=== PATIENT | female | born 1955 | race Caucasian/White ===

== ENCOUNTER 2017-11-07 01:09 | Outpatient (CLI) | payer OTHER, SELFPAY ==
[2017-11-07] MEDS: Breeza Beverage 473 ML BTL PO (08:41)
[2017-11-07] MEDS: Omnipaque 350 MG/ML 50 ML BTL PO (08:42)
[2017-11-07] MEDS: Omnipaque 350 MG/ML 100 ML BTL IJ (10:09)
--- NOTE | 2017-11-07 10:10 | DI.RPTCT_ITS ---
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 CHEST: There is no evidence of a pulmonary mass or infiltrate. There is no evidence of a pleural effusion. There is no evidence of hilar or mediastinal adenopathy. The heart is not enlarged. Coronary artery calcification is demonstrated. There are mild atherosclerotic changes involving the aorta without evidence of an aneurysm. Degenerative changes involving the dorsal spine are identified. There are no findings to suggest bony metastasis. SUMMARY: No evidence of metastatic disease in the chest. ABDOMEN AND PELVIC: The study was carried out with oral and intravenous contrast enhancement. There is no evidence of a hepatic mass. The gallbladder , pancreas and spleen are intact. A region of cortical scarring involving the upper pole of the left kidney is identified. Regions of scarring are noted in an atrophic right kidney. There is no evidence of hydronephrosis. The adrenals are normal. The bladder is normal. There is no evidence of bowel obstruction and nothing to suggest an acute appendix. Diffuse bowel wall thickening and an apparent mass is identified in the rectum. The possibility of tumor extension into the adjacent fat could not be excluded. There is no evidence of pelvic or abdominal adenopathy. The reproductive organs as visualized are unremarkable. There are diffuse atherosclerotic changes involving the aorta without evidence of an aneurysm. There are no bony findings to suggest metastatic disease. SUMMARY: There is an apparent mass involving the recto-anal region. The possibility of tumor extension into the adjacent fat could not be excluded. There is no evidence of adenopathy. There is no evidence of solid organ metastasis.
== END 2017-11-07 01:10 ==
PROVIDERS: Visit Provider Surgery
DX: C21.0 Malignant neoplasm of anus, unspecified (principal); K62.5 Hemorrhage of anus and rectum; K62.89 Other specified diseases of anus and rectum; R59.0 Localized enlarged lymph nodes; Z12.89 Encounter for screening for malignant neoplasm of other sites
CPT/HCPCS: 74177; 71260; J3490; Q9967

== ENCOUNTER 2017-11-27 10:55 | Outpatient (CLI) | payer OTHER, SELFPAY ==
[2017-11-27 11:23] LABS: Abs Immature Grans 0.13 k/cumm (0.0-0.09); Absolute Basophil Count 0.03 k/cumm (0.0-0.2); Absolute Eosinophil Count 0.01 k/cumm (0.0-0.7); Absolute Lymphocyte Count 1.21 k/cumm (1.2-3.4); Absolute Monocyte Count 0.97 k/cumm (0.11-0.7); Absolute Neutrophil Count 12.06 k/cumm (1.2-6.7); Basophils % 0.2; Eosinophils % 0.1; HCT 31.8 % (36.0-46.0); Immature Grans % 0.9; Lymphocytes % 8.4; Mean Corp. HGB Concentration 31.4 g/dL (32.0-36.0); Mean Corpuscular Hemoglobin 27.2 pg (27.0-33.0); Mean Corpuscular Volume 86.4 fL (80-95); Mean Platelet Volume 7.9 fL (8.0-11.0); Monocytes % 6.7; Neutrophils % 83.7; Platelet Count 536 x1000/uL (130-400); RBC 3.68 m/cumm (4.00-5.20); RBC Distribution Width 16.8 % (11.7-14.6); White Blood Cell Count 14.41 k/cumm (4.4-10.8)
[2017-11-27 11:43] LABS: Hemoglobin A1C 7.8 % (4.5-6.2)
[2017-11-27 12:20] LABS: ALT 18 U/L (12-78); AST 14 U/L (15-37); Albumin 2.3 g/dL (3.4-5.0); Alkaline Phosphatase 132 U/L (46-116); BUN 14 mg/dL (7-18); Bilirubin, Total 0.3 mg/dL (0.2-1.0); CREATININE 0.95 mg/dL (0.55-1.02); Calcium 8.9 mg/dL (8.5-10.1); Chloride 94 mmol/L (98-107); Estimated GFR 59.22 (mL/min/1.73m2); Glucose 258 mg/dL (70-100); Potassium 4.9 mmol/L (3.5-5.1); Sodium 131 mmol/L (136-145); Total Protein 6.7 g/dL (6.4-8.2)
[2017-11-28 13:38] LABS: HIV-1/2 Ag & Ab Screen Negative (NEGAT)
== END 2017-11-27 11:15 ==
PROVIDERS: Visit Provider Internal Medicine Hematology & Oncology
DX: E11.9 Type 2 diabetes mellitus without complications (principal); C21.0 Malignant neoplasm of anus, unspecified
CPT/HCPCS: 36415; 80053; 87389; 83036; 85025

== ENCOUNTER 2017-12-02 01:09 | Outpatient (CLI) | payer OTHER, SELFPAY ==
[2017-12-02 13:38] LABS: Abs Immature Grans 0.12 k/cumm (0.0-0.09); Absolute Basophil Count 0.03 k/cumm (0.0-0.2); Absolute Eosinophil Count 0.01 k/cumm (0.0-0.7); Absolute Lymphocyte Count 0.97 k/cumm (1.2-3.4); Absolute Monocyte Count 0.88 k/cumm (0.11-0.7); Basophils % 0.3; Eosinophils % 0.1; HCT 29.4 % (36.0-46.0); HGB 9.1 g/dL (12.0-15.5); Immature Grans % 1.1; Lymphocytes % 8.7; Mean Corpuscular Volume 87.2 fL (80-95); Mean Platelet Volume 8.5 fL (8.0-11.0); Monocytes % 7.9; Neutrophils % 81.9; Platelet Count 536 x1000/uL (130-400); RBC 3.37 m/cumm (4.00-5.20); RBC Distribution Width 17.3 % (11.7-14.6); White Blood Cell Count 11.11 k/cumm (4.4-10.8)
[2017-12-02 13:54] LABS: ALT 62 U/L (12-78); AST 51 U/L (15-37); Albumin 1.9 g/dL (3.4-5.0); Alkaline Phosphatase 155 U/L (46-116); Anion Gap 10.9 mmol/L (3-11); BUN 17 mg/dL (7-18); Bilirubin, Total 0.3 mg/dL (0.2-1.0); CO2 27.1 mmol/L (21.0-32.0); CREATININE 1.04 mg/dL (0.55-1.02); Calcium 9.3 mg/dL (8.5-10.1); Chloride 95 mmol/L (98-107); Estimated GFR 53.35 (mL/min/1.73m2); Glucose 189 mg/dL (70-100); Potassium 4.2 mmol/L (3.5-5.1); Sodium 133 mmol/L (136-145); Total Protein 7.2 g/dL (6.4-8.2)
[2017-12-03 10:13] LABS: HIV-1/2 Ag & Ab Screen Negative (NEGAT)
== END 2017-12-02 01:29 ==
PROVIDERS: Internal Medicine Hematology & Oncology; Visit Provider Nurse Practitioner Adult Health
DX: C21.0 Malignant neoplasm of anus, unspecified (principal)
CPT/HCPCS: 80053; 87389; 85025

== ENCOUNTER 2017-12-02 10:54 | Emergency (ER) | payer OTHER, SELFPAY ==
[2017-12-02 11:18] VITALS: BP 104/57; PULSE 110; RESP 20; TEMP 36.4; O2SAT 96
--- NOTE | 2017-12-02 12:49 | ED.GENADUL_ITS ---
Discharge Plan Disposition Patient Disposition: HOME Condition: Poor Discharge Details Chief Complaint: GenMedical Clinical Impression: Mass of anus, Cancer associated pain Primary Care Provider: Diane Leblanc ED Provider: Bianka Quiroz Home Meds and New Rx's Prescriptions: New naloxone [Narcan] 4 mg/actuation spray,non-aerosol 1 spray JORGE ONCE PRN (Reason: opioid overdose) Qty: 2 RF: 0 Continue aspirin [Ecotrin Low Strength] 81 MG tablet,delayed release (DR/EC) 1 tab PO DAILY RF: 0 acetaminophen 500 MG tablet 1 tab PO PRN RF: 0 calcium carbonate 500 MG tablet 1 tab.chew PO BID RF: 0 blood-glucose meter 1 EACH misc 1 ea Miscellaneous DAILY Qty: 1 RF: 0 ascorbic [id number] [Emergen-C] 1,000 MG powder effervescent in packet 1 packet PO PRN RF: 0 fluocinolone [Synalar] 120 GM ointment 1 applic Topical BID Qty: 1 RF: 2 simvastatin [Zocor] 10 MG tablet 1 tab PO HS Qty: 90 RF: 4 metformin 1,000 MG tablet 1 tab PO BID Qty: 180 RF: 4 lancets 1 EACH misc 1 ea Miscellaneous BID Qty: 200 RF: 4 blood sugar diagnostic [Blood Glucose Test] 1 EACH strip 1 ea Miscellaneous BID Qty: 200 RF: 4 levothyroxine [Synthroid] 137 MCG tablet 1 tab PO DAILY Qty: 90 RF: 4 lisinopril 20 MG tablet 20 mg PO DAILY Qty: 90 RF: 3 polyethylene glycol 3350 17 gram/dose powder 17 gm PO DAILY PRN (Reason: constipation) Qty: 255 RF: 2 glipizide 2.5 MG tablet extended release 24hr 2.5 - 5 mg PO DAILY RF: 0 fentanyl 12 mcg/hr Patch 72 Hour 12.5 mcg Transdermal DIRECTED RF: 0 Discontinued oxycodone 5 mg Tablet 2.5 mg PO Q4H PRNRF: 0 No Action ondansetron [Zofran ODT] 4 mg Tablet,Disintegrating 4 mg PO PRN PRNRF: 0 Discharge Instructions Instructions: Morphine, Rapid Release (By mouth) Additional Instructions: Encourage hydration. Continue high salt diet. Please follow-up tomorrow for your planned appointment. Please discuss pain management further with him at that time. If you develop new/worsening symptoms please seek care urgently once again. Please continue with your fentanyl patch as previously prescribed. You may augment this with the morphine as prescribed. If you develop new or worsening symptoms please seek care urgently once again. Palliative care will contact you regarding upcoming appointment Referrals: Diane Leblanc NP [Primary Care Provider] - Discharge Data Discharge Date/Time-TO BE ENTERED AT DEPARTURE: 12/02/17 15:54 Medical Decision Making Patient presents today with chief complaint of pain associated with rectal tumor. She reports that she was recently begun on a regimen of Fentanyl patch and oral oxycodone which ahs had adverse reaction and has not been able to function well at home. Patient and her family were under the impression that she would be admitted with plan to move [facility]. I discussed with the patient and her family that we may be able to change her pain regimen with different results, she is open to trying this. Also discussed palliative consult to help with the difficulties she is experiencing at home as well as continue to help with pain that may develop/change with time. She is scheduled to have blood work completed today, as ordered by radiologist. Patient was concerned about her hemoglobin and sodium as these have both been being monitored by her oncologist. Hgb has dropped, will relay this to oncologist. Sodium is still low but uptrending, she has changed her diet in an effort to take in higher sodium. Consulted with hospitalist regarding admission. He advised that we will he would be happy to consider an admission for the patient, she would be unable to go to her radiation and chemotherapy appointment tomorrow from an inpatient standpoint. Discussed this with the patient, she is refusing admission and she wants to move forward with her treatment. Patient was given oral morphine and reports that this greatly improved her discomfort while keeping her more clear headed. Feels that this did not infect her the way oxycodone did. Palliative care referral was placed. Discussed this with the patient and her family who is thankful for this upcoming intervention Consulted with Dr. Melchor regarding pain management. We discussed stopping the oxycodone and beginning the patient on oral morphine while continuing with her fentanyl patch for baseline discomfort. He agrees to this which will continue to monitor the patient for discomfort. We also discussed the patient's laboratory evaluation today. Patient is feeling that she can go lasha ewiht palliative care consult and with new plan for pain management. She was given return precautions. She will f/u with oncologist tomorrow as previously scheduled. All of her qeustions and concerns were addressed, she is in agreement with thisi plan. HPI General Mode of arrival: ambulatory . Date/Time Provider Initiated Documentation: 12/02/17 11:37 . Limitations to Documentation: no limitations . Information obtained by: patient . HPI Narrative: Patient is a 62-year-old female presenting today with chief complaint of rectal pain. She reports she is currently being treated for a rectal tumor. Is scheduled to have her first course of chemotherapy and radiation tomorrow. She presents today secondary to her discomfort. Reports that she has a constant burning. She currently is being treated with Fentanyl patch for her baseline pain and Oxycodone for breakthrough pain. States that when she takes the oxycodone she is unable to care for herself. Reports that it causes her to feel dizzy, lightheaded and confused. Her family is concerned that she is unable to care for herself and is concerned that she needs placement [facility]. Began these pain medications last week. States she has slight rectal bleeding noted on the toilet paper but denies blood in stool. Denes fevers/chils. Denies abdominal pain. reports that she has had PET scan. No N/V/D. No change in urinary habits. Is currently laying on her left side, reports that being on her side helps with discomfort. Related Data Home Medications Medication Instructions Recorded Confirmed acetaminophen 1 tab PO PRN 06/29/12 12/04/17 aspirin [Ecotrin Low Strength] 1 tab PO DAILY 06/29/12 12/04/17 calcium carbonate 1 tab.chew PO BID 06/29/12 12/04/17 blood-glucose meter #1 ea 10/04/14 12/04/17 ascorbic [id number] 1 packet PO PRN 07/26/15 12/04/17 [Emergen-C] fluocinolone [Synalar] 1 applic TOPICAL BID #1 script 03/28/16 12/04/17 metformin 1 tab PO BID #180 tab-cap 11/26/16 12/04/17 simvastatin [Zocor] 1 tab PO HS #90 tab-cap 11/26/16 12/04/17 lancets #200 ea 02/13/17 12/04/17 blood sugar diagnostic [Blood #200 strip 03/28/17 12/04/17 Glucose Test] levothyroxine [Synthroid] 1 tab PO DAILY #90 tab-cap 05/14/17 12/04/17 lisinopril 20 mg PO DAILY #90 tab-cap 05/14/17 12/04/17 polyethylene glycol 3350 17 17 gm PO DAILY PRN #255 gm 11/18/17 12/04/17 gram/dose oral powder fentanyl 12.5 mcg TRANSDERMAL DIRECTED 12/02/17 12/04/17 glipizide 2.5 - 5 mg PO DAILY 12/02/17 12/04/17 naloxone [Narcan] 1 spray JORGE ONCE PRN #2 each 12/02/17 12/04/17 ondansetron [Zofran ODT] 4 mg PO PRN PRN 12/04/17 12/04/17 Previous Rx's Medication Instructions Recorded metformin 1 tab PO BID #180 tab-cap 11/26/16 simvastatin [Zocor] 1 tab PO HS #90 tab-cap 11/26/16 lancets #200 ea 02/13/17 blood sugar diagnostic [Blood #200 strip 03/28/17 Glucose Test] levothyroxine [Synthroid] 1 tab PO DAILY #90 tab-cap 05/14/17 lisinopril 20 mg PO DAILY #90 tab-cap 05/14/17 polyethylene glycol 3350 17 17 gm PO DAILY PRN #255 gm 11/18/17 gram/dose oral powder naloxone [Narcan] 1 spray JORGE ONCE PRN #2 each 12/02/17 Allergies Allergy/AdvReac Type Severity Reaction Status Date / Time codeine Allergy Unverified 12/04/17 15:29 copper Allergy Skin Rash Unverified 12/04/17 15:29 latex Allergy Unverified 12/04/17 15:29 lidocaine Allergy Itching Unverified 12/04/17 15:29 oxycodone AdvReac Unverified 12/05/17 12:56 General Stated Complaint: GenMedical SEMAJ: 3 Review of Systems Constitutional Reports as per HPI, Denies chills, Reports fatigue, Denies fever(s), Denies headache(s) and Reports poor appetite Eyes Denies change in vision ENT Denies headache(s) Cardiovascular Denies chest pain and Denies dyspnea Respiratory Denies cough and Denies dyspnea Gastrointestinal Reports as per HPI Genitourinary Reports as per HPI Musculoskeletal Denies back pain Integumentary/Breasts Denies rash and Reports skin swelling (patient and notes from oncologist note that she has had eruption of the tumor around the rectum) Neurologic Denies headache(s) Endocrine Reports fatigue Exam Const General: cooperative, uncomfortable (patient appears comofrtable when on her side but is clearly uncomfortable when sitting or on her back), no acute distress, well developed and well groomed Nutritional Appearance: well nourished and overweight Orientation: alert, awake and oriented x3 HENVT Mouth: moist mucous membranes Eyes General: appearance normal, both eyes and all related structures Resp Effort & Inspection: normal respiratory effort, able to speak in complete sentences and no respiratory distress Auscultation: clear to auscultation bilaterally Cardio Rate: regular rate Rhythm: regular rhythm Heart Sounds: S1 normal and S2 normal GI Inspection: normal to inspection Palpation: soft and nontender Skin General skin exam: no rashes or lesions noted Neuro General: alert, awake and oriented x3 Cognition: normal cognition Speech: speech normal Gait: antalgic Psych Appearance: grossly normal and well kempt Mental Status: mental status grossly normal Speech and Movement: speech and movement normal Course Vital Signs Temperature 36.4 C L 12/02/17 11:18 Pulse 110 H 12/02/17 11:18 Respiratory Rate 20 12/02/17 11:18 Blood Pressure 104/57 L 12/02/17 11:18 Pulse Oximetry 96 12/02/17 11:18 Temperature 36.4 C L 12/02/17 11:18 Temperature Source Skin 12/02/17 11:18 Pulse 110 H 12/02/17 11:18 Respiratory Rate 20 12/02/17 11:18 Blood Pressure 104/57 L 12/02/17 11:18 Blood Pressure Position Sitting 12/02/17 11:18 Pulse Oximetry 96 12/02/17 11:18 Oxygen Delivery Method Room Air 12/02/17 11:18 Oxygen Flow Rate 0 12/02/17 11:18 Pain Level 9 12/02/17 11:18 Comment starts chemo and radiation tomorrow 12/02/17 11:18
[2017-12-02 12:58] VITALS: RESP 18
--- NOTE | 2017-12-02 14:42 | PDOC.ERCMPRO ---
Care Management Progress Note 12/02/17-Pt being seen here today by KATIE Manley for rectal pain as Pt has a rectal tumor. Pt wanted to be admitted to get her 3 qualifying nights so that she can join her who is a pt there. Pt will not be admitted here as she does not have a need . Pt begins chemo tx tomorrow.Pt and family is accepting of a Palliative Care referral. Referral has been sent.
[2017-12-02 15:02] VITALS: BP 102/58; PULSE 85; RESP 16; TEMP 36.6; O2SAT 97
[2017-12-02 15:53] VITALS: BP 92/54; PULSE 94; RESP 18; TEMP 36.4; O2SAT 97
== END 2017-12-02 15:54 | disposition home or self-care (01) ==
PROVIDERS: Emergency Provider Physician Assistant
DX: C21.0 Malignant neoplasm of anus, unspecified (principal); G89.3 Neoplasm related pain (acute) (chronic); I10 Essential (primary) hypertension; E11.9 Type 2 diabetes mellitus without complications; Z79.84 Long term (current) use of oral hypoglycemic drugs
CPT/HCPCS: 99283

== ENCOUNTER 2017-12-04 15:20 | Inpatient (IN) | payer OTHER, SELFPAY ==
[2017-12-04] VITALS (107 sets, daily range): BP systolic 37–190; BP diastolic 21–103; PULSE 0–139; RESP 11–36; TEMP 34.5–38.3; O2SAT 81–99
--- NOTE | 2017-12-04 15:33 | DI.RAD_ITS ---
SYMPTOM/DIAGNOSIS: NEUTROPENIC FEVER PA AND LATERAL CHEST: The heart is normal in size. The lungs are clear. The mediastinal structures and pleura appear intact. CONCLUSION: Normal chest. No evidence of acute cardiopulmonary disease.
--- NOTE | 2017-12-04 15:36 | W.ED.GENAD ---
Discharge Plan Disposition Patient Disposition: [facility] INPATIENT Condition: Critical Discharge Details Chief Complaint: GenMedical Clinical Impression: Sepsis, UTI (urinary tract infection) Reason For Visit: SEPSIS,URINARY TRACT INFECTION Admit Date/Time: 12/04/17 20:36 Admit Provider: Morgan Carpio Attending Provider: Morgan Carpio Primary Care Provider: Diane Leblanc ED Provider: Bianka Quiroz Discharge Data Discharge Date/Time-TO BE ENTERED AT DEPARTURE: 12/04/17 21:53 Medical Decision Making Patient presents today with chief complaint of fever. She received her first dosing of chemotherapy and radiation yesterday. Was seen oncology again today at which time the temp was noted. Patient is currently febrile at 38.3. To be tachycardic at 125. She not endorsing any new discomfort. Oncology reports that they noted a slight cough throughout her visit. Patient denies any new cough. She reports that she was feeling well this morning prior to going to her oncology appointment. Denies any headache, visual changes. No nuchal rigidity. There was concern for possible neutropenic fever, however, given the medication that she is receiving for chemotherapy as well as that yesterday was her first dosing I would be surprised if she is neutropenic at this point. We will obtain repeat laboratory evaluation, chest x-ray and hydrate the patient. Patient be given Tylenol to help with her fever. She is denying any shortness of breath or chest pain. Denies any GI upset. Denies any symptoms suggestive of urinary tract infection. Laboratory evaluation significant for leukocytosis with WBC of 20.9, this is up from 11.11 2 days ago. Hemoglobin is 7.9, this is down from 9.1. Neutrophil count is 19.4. Sodium is 122, this is down from 1.33. Creatinine is 1.8, up from 1.04. Magnesium is 1.1. Patient is noted to have elevated anion gap Patient was reevaluated and noted to be hypotensive. She currently 66/42. Patient appears diaphoretic. Fever is broken, she is currently 36.3 ?C. Second IV was started. Patient is receiving the magnesium and IV ceftriaxone for presumed urosepsis Consult[facility] [place]. Advised to continue with the hydration, replacement of electrolytes and antibiotics. While in the front of them I reviewed the chest x-ray and I am concerned I am seeing small right upper lobe infiltrate. They advised that I broaden antibiotics to Zosyn Patient received 2 L IV and is not responding. Will begin norepinephrine 8 mcg/min per septic shock protocol. Has this syndrome blood pressure began after starting the IV magnesium, we will hold magnesium at this point. Contacted Dr. Thomas who will come to place central line for continued pressor support. Patient responded well to initial dosing of norepinephrine. Paged Dr. Carpio to discuss hospitalization. Patient initially responded well to norepinephrine but then began to have decrease in BP again, norepi was increased to 10mcg/min. Chest x-ray reviewed by radiologist. Advised no acute pulmonary disease. No focal pulmonary consolidation. Dr. Sloan was able to place a central line, portable chest x-ray will be obtained Repeat chest x-ray after central line placement shows insertion of central catheter in good position without evidence of complication. No pneumothorax. Insertion is into the right internal jugular with tip projecting over the mid superior vena cava. Daughter is now present, she is patient's primary caregiver. She reports that this morning she was afebrile, laughing at breakfast and acting per her normal. I did question the patient as well as her family on advanced directives any wishes that may have already been expressed. Patient wishes to be a full code. Patient blood pressures been quite labile and we have been adjusting the norepinephrine drip based on current readings. Consulted with Dr. Carpio regarding admission. We discussed the patient's history, labs and course well-being here. He agrees to admission. Came to the department to evaluate the patient. Dr. elise evaluated the patient, agrees to admission to the ICU for urosepsis. Prior to the patient being transported upstairs, her blood pressure began to be more labile. Further fluids were given. Heart rate began to spike and appear irregular concerning for episodes of atrial fibrillation. Heart rate would spike into the 140s and run like this for a few seconds. Patient denies any change in sensation when she goes into this rhythm. Continues to deny chest pain or shortness of breath. Is not feeling dizzy or lightheaded. Tachycardia is elongating in length of time in which she is in these runs. Will consult again with Dr. Carpio. Dr. Carpio advised beginning patient on diltiazem. Prior to the patient beginning the diltiazem she seemed to come out of the rhythm did not go back into this. We will continue to need to adjust norepinephrine drip based on current blood pressure. Patient transferred to ICU for continued treatment of septic shock with urosepsis. Patient is currently receiving fluids, norepinephrine and antibiotics per HPI General Mode of arrival: ambulatory. Date/Time Provider Initiated Documentation: 12/04/17 15:32. Limitations to Documentation: no limitations. Information obtained by: patient and family. HPI Narrative: Patient is 62-year-old female presenting today with chief complaint of neutropenic fever. She is from the [facility] after receiving p.o. chemotherapy and radiation this morning. Patient is currently being treated for a rectal tumor. Should her first dose of chemotherapy yesterday. Patient was seen by myself on Saturday with chief complaint of pain. At that time, patient was transitioned from oxycodone to oral morphine which she responded much better to. Do not have any dizziness or altered mentation that had been her primary concern the oxycodone. Reports that she took oral morphine yesterday but has not required anything thus far today. Patient does have a fentanyl patch on routinely. Patient was noted to be febrile while at the [facility] today with a temp of 38.1. When she had a blood work done last on Saturday, patient was not noted to be neutropenic. However, she did begin the treatments they are concerned that she may have developed neutropenic fever. They were also reporting that they noted a mild cough. She is denying any cough at this time. She denies any upper respiratory symptoms. Denies any abdominal pain. No dysuria. She was noted to be slow to answer questions compared to her baseline. She denies PACHECO, no visual changes, no pain in her back. Patient reports that her pain in the tumor is well controlled with Fentanyl but she is currently endorsing over riding burning sensation in her rectum Related Data Home Medications Medication Instructions Recorded Confirmed acetaminophen 1 tab PO PRN 06/29/12 12/04/17 aspirin [Ecotrin Low Strength] 1 tab PO DAILY 06/29/12 12/04/17 calcium carbonate 1 tab.chew PO BID 06/29/12 12/04/17 blood-glucose meter #1 ea 10/04/14 12/04/17 ascorbic [id number] 1 packet PO PRN 07/26/15 12/04/17 [Emergen-C] fluocinolone [Synalar] 1 applic TOPICAL BID #1 script 03/28/16 12/04/17 metformin 1 tab PO BID #180 tab-cap 11/26/16 12/04/17 simvastatin [Zocor] 1 tab PO HS #90 tab-cap 11/26/16 12/04/17 lancets #200 ea 02/13/17 12/04/17 blood sugar diagnostic [Blood #200 strip 03/28/17 12/04/17 Glucose Test] levothyroxine [Synthroid] 1 tab PO DAILY #90 tab-cap 05/14/17 12/04/17 lisinopril 20 mg PO DAILY #90 tab-cap 05/14/17 12/04/17 polyethylene glycol 3350 17 17 gm PO DAILY PRN #255 gm 11/18/17 12/04/17 gram/dose oral powder fentanyl 12.5 mcg TRANSDERMAL DIRECTED 12/02/17 12/04/17 glipizide 2.5 - 5 mg PO DAILY 12/02/17 12/04/17 naloxone [Narcan] 1 spray JORGE ONCE PRN #2 each 12/02/17 12/04/17 ondansetron [Zofran ODT] 4 mg PO PRN PRN 12/04/17 12/04/17 Previous Rx's Medication Instructions Recorded metformin 1 tab PO BID #180 tab-cap 11/26/16 simvastatin [Zocor] 1 tab PO HS #90 tab-cap 11/26/16 lancets #200 ea 02/13/17 blood sugar diagnostic [Blood #200 strip 03/28/17 Glucose Test] levothyroxine [Synthroid] 1 tab PO DAILY #90 tab-cap 05/14/17 lisinopril 20 mg PO DAILY #90 tab-cap 05/14/17 polyethylene glycol 3350 17 17 gm PO DAILY PRN #255 gm 11/18/17 gram/dose oral powder naloxone [Narcan] 1 spray JORGE ONCE PRN #2 each 12/02/17 Allergies Allergy/AdvReac Type Severity Reaction Status Date / Time codeine Allergy Unverified 12/04/17 15:29 copper Allergy Skin Rash Unverified 12/04/17 15:29 latex Allergy Unverified 12/04/17 15:29 lidocaine Allergy Itching Unverified 12/04/17 15:29 oxycodone AdvReac Unverified 12/05/17 12:56 General Stated Complaint: GenMedical SEMAJ: 3 Review of Systems Constitutional Reports as per HPI, Denies chills, Reports fatigue, Reports fever(s) and Denies headache(s) Eyes Reports as per HPI, Denies change in vision and Denies loss of vision ENT Reports as per HPI and Denies headache(s) Cardiovascular Denies chest pain, Denies chest pain at rest, Denies syncope, Denies pedal edema, Denies palpitations, Denies dyspnea and Denies dyspnea on exertion Respiratory Reports as per HPI, Reports cough, Denies hemoptysis, Denies dyspnea, Denies dyspnea on exertion, Denies stridor and Denies wheezing Gastrointestinal Reports as per HPI, Denies change in bowel habits, Denies diarrhea, Denies nausea and Denies vomiting Genitourinary Reports system reviewed and no additional complaints, except as docu (reports she has diminished urine, associates with treatments), Denies urinary frequency, Denies difficulty voiding, Denies dyspareunia, Denies dysuria, Denies pelvic pain, Denies flank pain and Denies urinary urgency Musculoskeletal Reports as per HPI and Denies back pain Integumentary/Breasts Denies rash Neurologic Denies syncope, Denies headache(s) and Denies loss of vision Endocrine Reports fatigue and Denies palpitations Allergic/Immunologic Denies wheezing PFSH Family History Mother Diabetes Essential hypertension Depression Heart disease Hyperlipidemia Neoplasm Cerebrovascular accident Father Heart disease Myocardial infarction Sister Hyperlipidemia Asthma Grandfather Neoplasm Grandmother Cerebrovascular accident Son Diabetes Asthma Daughter Anxiety Heart disease Medical History Anal cancer (Chronic) Anemia (Chronic) SVT (supraventricular tachycardia) (Acute) Hypothyroidism (Chronic 07/07/12) Hyperlipidemia (Chronic) Gastroesophageal reflux disease (Chronic) Essential hypertension (Chronic 01/02/13) Diabetes mellitus (Chronic 07/07/12) Diabetes Female infertility GERD (gastroesophageal reflux disease) Hyperlipidemia Hypertension Hypothyroidism Obesity (BMI 30-39.9) Varicose veins of both lower extremities Social History household members: none 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 pets and animals: Yes pets and animals: cat(s) frequency: 3-4 times per week duration: 45-60 minutes/day Smoking/Tobacco Use Status: Current every day tobacco type: cigarettes alcohol intake: never substance use type: does not use cari/holiness: [employer] special cari needs: No seatbelt use: always Surgical History Cervical Procedure (~1989) Endometrial Biopsy (~2002) Ligation of fallopian tube Exam Const General: cooperative, comfortable, no acute distress, well developed and ill appearing chronically Nutritional Appearance: overweight Orientation: alert and awake [facility] Head: normal to inspection, normocephalic and atraumatic Ears: hearing grossly normal bilaterally, external ears normal and TM's normal bilaterally General nose exam: external nose normal Face and sinus: normal facial exam and sinuses nontender Mouth: mucous membranes dry (dry) Teeth and gingiva: dentition normal (patient has upper dentures) Throat: posterior oropharynx normal, uvula midline and other (no trismus) Resp Effort & Inspection: normal respiratory effort, able to speak in complete sentences and no respiratory distress Auscultation: clear to auscultation bilaterally Cardio Rate: tachycardic Rhythm: regular rhythm Heart Sounds: S1 normal and S2 normal GI Inspection: normal to inspection, no abdominal wall ecchymosis, no edema and non-distended Palpation: soft, no hepatosplenomegaly, not firm, no guarding, not rigid and nontender Auscultation: normal bowel sounds Back/Spine/Pelvis Back: no CVA tenderness Cervical Spine: normal cervical lordosis and cervical ROM normal Thoracic/Lumbar Spine: thoracic and lumbar spine normal to inspection (no midline tenderness) Skin General skin exam: no rashes or lesions noted Lesions: no lesions Rashes: no rashes Neuro General: alert and awake Cranial Nerves: CN's II-XI intact bilaterally Cognition: normal cognition Speech: speech normal Gait: gait abnormal (patient brought in in wheelchair) Extrem General: no pedal edema and no calf tenderness Psych Appearance: grossly normal and well kempt Mental Status: mental status grossly normal Speech and Movement: speech and movement normal Affect: normal affect Attitude: cooperative Course Vital Signs Temperature 38.3 C H 12/04/17 15:26 Pulse 125 H 12/04/17 15:26 Respiratory Rate 22 12/04/17 15:26 Blood Pressure 128/103 H 12/04/17 15:26 Pulse Oximetry 95 12/04/17 15:26 Temperature 38.3 C H 12/04/17 15:26 Temperature Source Temporal Artery Scan 12/04/17 15:26 Pulse 125 H 12/04/17 15:26 Respiratory Rate 22 12/04/17 15:26 Blood Pressure 128/103 H 12/04/17 15:26 Pulse Oximetry 95 12/04/17 15:26 Oxygen Delivery Method Room Air 12/04/17 15:26 Oxygen Flow Rate 0 12/04/17 15:26 Pain Level 9 12/04/17 15:26
[2017-12-04] MEDS: Normal Saline 1,000 ML 150 ML IV ×2 (16:00→23:55)
[2017-12-04] MEDS: Acetaminophen 500 MG TAB 1000 MG PO (16:00)
[2017-12-04 16:16] LABS: Abs Immature Grans 0.71 k/cumm (0.0-0.09); HCT 24.8 % (36.0-46.0); HGB 7.9 g/dL (12.0-15.5); Mean Corp. HGB Concentration 31.9 g/dL (32.0-36.0); Mean Corpuscular Hemoglobin 27.1 pg (27.0-33.0); Mean Corpuscular Volume 84.9 fL (80-95); Mean Platelet Volume 8.4 fL (8.0-11.0); Platelet Count 527 x1000/uL (130-400); RBC 2.92 m/cumm (4.00-5.20); RBC Distribution Width 17.1 % (11.7-14.6); White Blood Cell Count 20.93 k/cumm (4.4-10.8)
[2017-12-04 16:27] LABS: Lactate-non-spesis 2.9 mmol/L (0.6-1.4)
[2017-12-04 16:32] LABS: Absolute Lymphocyte Count 0.84 k/cumm (1.2-3.4); Absolute Monocyte Count 0.63 k/cumm (0.11-0.7); Absolute Neutrophil Count 19.46 k/cumm (1.2-6.7); Atypical Lymphocytes % 0; Basophilic Stippling Present; Diff Comment Manual Differential
[2017-12-04 16:33] LABS: Hypochromasia 1+; Macrocytosis 1+; Polychromasia Present
--- NOTE | 2017-12-04 16:33 | ED.GENADUL_ITS ---
Discharge Plan Disposition Patient Disposition: [facility] INPATIENT Condition: Critical Discharge Details Chief Complaint: GenMedical Clinical Impression: Sepsis, UTI (urinary tract infection) Reason For Visit: SEPSIS,URINARY TRACT INFECTION Admit Date/Time: 12/04/17 20:36 Admit Provider: Morgan Carpio Attending Provider: Morgan Carpio Primary Care Provider: Diane Leblanc ED Provider: Bianka Quiroz Discharge Data Discharge Date/Time-TO BE ENTERED AT DEPARTURE: 12/04/17 21:53 Medical Decision Making Patient presents today with chief complaint of fever. She received her first dosing of chemotherapy and radiation yesterday. Was seen oncology again today at which time the temp was noted. Patient is currently febrile at 38.3. To be tachycardic at 125. She not endorsing any new discomfort. Oncology reports that they noted a slight cough throughout her visit. Patient denies any new cough. She reports that she was feeling well this morning prior to going to her oncology appointment. Denies any headache, visual changes. No nuchal rigidity. There was concern for possible neutropenic fever, however, given the medication that she is receiving for chemotherapy as well as that yesterday was her first dosing I would be surprised if she is neutropenic at this point. We will obtain repeat laboratory evaluation, chest x-ray and hydrate the patient. Patient be given Tylenol to help with her fever. She is denying any shortness of breath or chest pain. Denies any GI upset. Denies any symptoms suggestive of urinary tract infection. Laboratory evaluation significant for leukocytosis with WBC of 20.9, this is up from 11.11 2 days ago. Hemoglobin is 7.9, this is down from 9.1. Neutrophil count is 19.4. Sodium is 122, this is down from 1.33. Creatinine is 1.8, up from 1.04. Magnesium is 1.1. Patient is noted to have elevated anion gap Patient was reevaluated and noted to be hypotensive. She currently 66/42. Patient appears diaphoretic. Fever is broken, she is currently 36.3 ?C. Second IV was started. Patient is receiving the magnesium and IV ceftriaxone for presumed urosepsis [place] [facility] [place]. Advised to continue with the hydration, replacement of electrolytes and antibiotics. While in the front of them I reviewed the chest x-ray and I am concerned I am seeing small right upper lobe infiltrate. They advised that I broaden antibiotics to Zosyn Patient received 2 L IV and is not responding. Will begin norepinephrine 8 mcg/ min per septic shock protocol. Has this syndrome blood pressure began after starting the IV magnesium, we will hold magnesium at this point. Contacted Dr. Thomas who will come to place central line for continued pressor support. Patient responded well to initial dosing of norepinephrine. Paged Dr. Carpio to discuss hospitalization. Patient initially responded well to norepinephrine but then began to have decrease in BP again, norepi was increased to 10mcg/min. Chest x-ray reviewed by radiologist. Advised no acute pulmonary disease. No focal pulmonary consolidation. Dr. Sloan was able to place a central line, portable chest x-ray will be obtained Repeat chest x-ray after central line placement shows insertion of central catheter in good position without evidence of complication. No pneumothorax. Insertion is into the right internal jugular with tip projecting over the mid superior vena cava. Daughter is now present, she is patient's primary caregiver. She reports that this morning she was afebrile, laughing at breakfast and acting per her normal. I did question the patient as well as her family on advanced directives any wishes that may have already been expressed. Patient wishes to be a full code. Patient blood pressures been quite labile and we have been adjusting the norepinephrine drip based on current readings. Consulted with Dr. Carpio regarding admission. We discussed the patient's history, labs and course well-being here. He agrees to admission. Came to the department to evaluate the patient. Dr. elise evaluated the patient, agrees to admission to the ICU for urosepsis. Prior to the patient being transported upstairs, her blood pressure began to be more labile. Further fluids were given. Heart rate began to spike and appear irregular concerning for episodes of atrial fibrillation. Heart rate would spike into the 140s and run like this for a few seconds. Patient denies any change in sensation when she goes into this rhythm. Continues to deny chest pain or shortness of breath. Is not feeling dizzy or lightheaded. Tachycardia is elongating in length of time in which she is in these runs. Will consult again with Dr. Carpio. Dr. Carpio advised beginning patient on diltiazem. Prior to the patient beginning the diltiazem she seemed to come out of the rhythm did not go back into this. We will continue to need to adjust norepinephrine drip based on current blood pressure. Patient transferred to ICU for continued treatment of septic shock with urosepsis. Patient is currently receiving fluids, norepinephrine and antibiotics per HPI General Mode of arrival: ambulatory . Date/Time Provider Initiated Documentation: 12/04/17 15:32 . Limitations to Documentation: no limitations . Information obtained by: patient and family . HPI Narrative: Patient is 62-year-old female presenting today with chief complaint of neutropenic fever. She is from the [facility] after receiving p.o. chemotherapy and radiation this morning. Patient is currently being treated for a rectal tumor. Should her first dose of chemotherapy yesterday. Patient was seen by myself on Saturday with chief complaint of pain. At that time , patient was transitioned from oxycodone to oral morphine which she responded much better to. Do not have any dizziness or altered mentation that had been her primary concern the oxycodone. Reports that she took oral morphine yesterday but has not required anything thus far today. Patient does have a fentanyl patch on routinely. Patient was noted to be febrile while at the [facility] today with a temp of 38.1. When she had a blood work done last on Saturday, patient was not noted to be neutropenic. However, she did begin the treatments they are concerned that she may have developed neutropenic fever. They were also reporting that they noted a mild cough. She is denying any cough at this time. She denies any upper respiratory symptoms. Denies any abdominal pain. No dysuria. She was noted to be slow to answer questions compared to her baseline. She denies PACHECO, no visual changes, no pain in her back. Patient reports that her pain in the tumor is well controlled with Fentanyl but she is currently endorsing over riding burning sensation in her rectum Related Data Home Medications Medication Instructions Recorded Confirmed acetaminophen 1 tab PO PRN 06/29/12 12/04/17 aspirin [Ecotrin Low Strength] 1 tab PO DAILY 06/29/12 12/04/17 calcium carbonate 1 tab.chew PO BID 06/29/12 12/04/17 blood-glucose meter #1 ea 10/04/14 12/04/17 ascorbic [id number] 1 packet PO PRN 07/26/15 12/04/17 [Emergen-C] fluocinolone [Synalar] 1 applic TOPICAL BID #1 script 03/28/16 12/04/17 metformin 1 tab PO BID #180 tab-cap 11/26/16 12/04/17 simvastatin [Zocor] 1 tab PO HS #90 tab-cap 11/26/16 12/04/17 lancets #200 ea 02/13/17 12/04/17 blood sugar diagnostic [Blood #200 strip 03/28/17 12/04/17 Glucose Test] levothyroxine [Synthroid] 1 tab PO DAILY #90 tab-cap 05/14/17 12/04/17 lisinopril 20 mg PO DAILY #90 tab-cap 05/14/17 12/04/17 polyethylene glycol 3350 17 17 gm PO DAILY PRN #255 gm 11/18/17 12/04/17 gram/dose oral powder fentanyl 12.5 mcg TRANSDERMAL DIRECTED 12/02/17 12/04/17 glipizide 2.5 - 5 mg PO DAILY 12/02/17 12/04/17 naloxone [Narcan] 1 spray JORGE ONCE PRN #2 each 12/02/17 12/04/17 ondansetron [Zofran ODT] 4 mg PO PRN PRN 12/04/17 12/04/17 Previous Rx's Medication Instructions Recorded metformin 1 tab PO BID #180 tab-cap 11/26/16 simvastatin [Zocor] 1 tab PO HS #90 tab-cap 11/26/16 lancets #200 ea 02/13/17 blood sugar diagnostic [Blood #200 strip 03/28/17 Glucose Test] levothyroxine [Synthroid] 1 tab PO DAILY #90 tab-cap 05/14/17 lisinopril 20 mg PO DAILY #90 tab-cap 05/14/17 polyethylene glycol 3350 17 17 gm PO DAILY PRN #255 gm 11/18/17 gram/dose oral powder naloxone [Narcan] 1 spray JORGE ONCE PRN #2 each 12/02/17 Allergies Allergy/AdvReac Type Severity Reaction Status Date / Time codeine Allergy Unverified 12/04/17 15:29 copper Allergy Skin Rash Unverified 12/04/17 15:29 latex Allergy Unverified 12/04/17 15:29 lidocaine Allergy Itching Unverified 12/04/17 15:29 oxycodone AdvReac Unverified 12/05/17 12:56 General Stated Complaint: GenMedical SEMAJ: 3 Review of Systems Constitutional Reports as per HPI, Denies chills, Reports fatigue, Reports fever(s) and Denies headache(s) Eyes Reports as per HPI, Denies change in vision and Denies loss of vision ENT Reports as per HPI and Denies headache(s) Cardiovascular Denies chest pain, Denies chest pain at rest, Denies syncope, Denies pedal edema , Denies palpitations, Denies dyspnea and Denies dyspnea on exertion Respiratory Reports as per HPI, Reports cough, Denies hemoptysis, Denies dyspnea, Denies dyspnea on exertion, Denies stridor and Denies wheezing Gastrointestinal Reports as per HPI, Denies change in bowel habits, Denies diarrhea, Denies nausea and Denies vomiting Genitourinary Reports system reviewed and no additional complaints, except as docu (reports she has diminished urine, associates with treatments), Denies urinary frequency , Denies difficulty voiding, Denies dyspareunia, Denies dysuria, Denies pelvic pain, Denies flank pain and Denies urinary urgency Musculoskeletal Reports as per HPI and Denies back pain Integumentary/Breasts Denies rash Neurologic Denies syncope, Denies headache(s) and Denies loss of vision Endocrine Reports fatigue and Denies palpitations Allergic/Immunologic Denies wheezing PFSH Family History Mother Diabetes Essential hypertension Depression Heart disease Hyperlipidemia Neoplasm Cerebrovascular accident Father Heart disease Myocardial infarction Sister Hyperlipidemia Asthma Grandfather Neoplasm Grandmother Cerebrovascular accident Son Diabetes Asthma Daughter Anxiety Heart disease Medical History Anal cancer (Chronic) Anemia (Chronic) SVT (supraventricular tachycardia) (Acute) Hypothyroidism (Chronic 07/07/12) Hyperlipidemia (Chronic) Gastroesophageal reflux disease (Chronic) Essential hypertension (Chronic 01/02/13) Diabetes mellitus (Chronic 07/07/12) Diabetes Female infertility GERD (gastroesophageal reflux disease) Hyperlipidemia Hypertension Hypothyroidism Obesity (BMI 30-39.9) Varicose veins of both lower extremities Social History household members: none 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 pets and animals: Yes pets and animals: cat(s) frequency: 3-4 times per week duration: 45-60 minutes/day Smoking/Tobacco Use Status: Current every day tobacco type: cigarettes alcohol intake: never substance use type: does not use cari/scientology: Anabaptist special cari needs: No seatbelt use: always Surgical History Cervical Procedure (~1989) Endometrial Biopsy (~2002) Ligation of fallopian tube Exam Const General: cooperative, comfortable, no acute distress, well developed and ill appearing chronically Nutritional Appearance: overweight Orientation: alert and awake [facility] Head: normal to inspection, normocephalic and atraumatic Ears: hearing grossly normal bilaterally, external ears normal and TM's normal bilaterally General nose exam: external nose normal Face and sinus: normal facial exam and sinuses nontender Mouth: mucous membranes dry (dry) Teeth and gingiva: dentition normal (patient has upper dentures) Throat: posterior oropharynx normal, uvula midline and other (no trismus) Resp Effort & Inspection: normal respiratory effort, able to speak in complete sentences and no respiratory distress Auscultation: clear to auscultation bilaterally Cardio Rate: tachycardic Rhythm: regular rhythm Heart Sounds: S1 normal and S2 normal GI Inspection: normal to inspection, no abdominal wall ecchymosis, no edema and non -distended Palpation: soft, no hepatosplenomegaly, not firm, no guarding, not rigid and nontender Auscultation: normal bowel sounds Back/Spine/Pelvis Back: no CVA tenderness Cervical Spine: normal cervical lordosis and cervical ROM normal Thoracic/Lumbar Spine: thoracic and lumbar spine normal to inspection (no midline tenderness) Skin General skin exam: no rashes or lesions noted Lesions: no lesions Rashes: no rashes Neuro General: alert and awake Cranial Nerves: CN's II-XI intact bilaterally Cognition: normal cognition Speech: speech normal Gait: gait abnormal (patient brought in in wheelchair) Extrem General: no pedal edema and no calf tenderness Psych Appearance: grossly normal and well kempt Mental Status: mental status grossly normal Speech and Movement: speech and movement normal Affect: normal affect Attitude: cooperative Course Vital Signs Temperature 38.3 C H 12/04/17 15:26 Pulse 125 H 12/04/17 15:26 Respiratory Rate 22 12/04/17 15:26 Blood Pressure 128/103 H 12/04/17 15:26 Pulse Oximetry 95 12/04/17 15:26 Temperature 38.3 C H 12/04/17 15:26 Temperature Source Temporal Artery Scan 12/04/17 15:26 Pulse 125 H 12/04/17 15:26 Respiratory Rate 22 12/04/17 15:26 Blood Pressure 128/103 H 12/04/17 15:26 Pulse Oximetry 95 12/04/17 15:26 Oxygen Delivery Method Room Air 12/04/17 15:26 Oxygen Flow Rate 0 12/04/17 15:26 Pain Level 9 12/04/17 15:26
[2017-12-04] MEDS: Calcium Carbonate *TUMS* 500 MG CHEW 1000 MG PO (16:35)
[2017-12-04 16:47] LABS: ALT 42 U/L (12-78); AST 57 U/L (15-37); Albumin 1.7 g/dL (3.4-5.0); Alkaline Phosphatase 137 U/L (46-116); Anion Gap 14.7 mmol/L (3-11); BUN 31 mg/dL (7-18); Bilirubin, Total 0.6 mg/dL (0.2-1.0); CO2 19.3 mmol/L (21.0-32.0); CREATININE 1.87 mg/dL (0.55-1.02); Calcium 8.6 mg/dL (8.5-10.1); Chloride 88 mmol/L (98-107); Estimated GFR 27.11 (mL/min/1.73m2); Glucose 53 mg/dL (70-100); Magnesium 1.1 mg/dL (1.8-2.4); Potassium 4.5 mmol/L (3.5-5.1); Total Protein 6.7 g/dL (6.4-8.2)
[2017-12-04 16:48] LABS: Troponin I < 0.02 ng/mL (0.00-0.06)
[2017-12-04 16:51] LABS: Sodium 122 mmol/L (136-145)
[2017-12-04 16:55] LABS: Bilirubin Small (Negative); Blood Moderate (Negative); Clarity Cloudy; Glucose Negative (Negative); Ketones Negative (Negative); Leukocyte Esterase Large (Negative); Nitrite Negative (Negative)
[2017-12-04 17:03] LABS: Bacteria Many HPF (Negative); Crystals Negative HPF (Negative); Epithelial Cells Few HPF (Negative); Mucus Heavy (Negative); Other Cells Negative (Negative); RBC >50 (0-2); WBC >50 HPF (0-5)
[2017-12-04 17:04] LABS: C & S Indicated? Yes; Casts Negative LPF (Negative)
[2017-12-04] MEDS: MAGNESIUM SULFATE 4 GM/100 ML BAG IVPB (17:10)
[2017-12-04] MEDS: Normal Saline 1,000 ML 1000 ML IV ×2 (17:30→18:00)
[2017-12-04] MEDS: PIPERACILLIN/TAZO 4.5 GM in Normal Saline 100 ML IVPB (17:40)
[2017-12-04] MEDS: Ondansetron 4 MG/2 ML VIAL (17:45)
--- NOTE | 2017-12-04 17:56 | DI.VRAD_ITS ---
EXAM: XR Chest, 2 Views CLINICAL HISTORY: 62 years old, female; Signs and symptoms; Fever TECHNIQUE: Frontal and lateral views of the chest. COMPARISON: No relevant prior studies available. FINDINGS: Minimal interstitial lung scarring. No focal pulmonary consolidation. Costophrenic angles are sharp. Cardiac silhouette within normal limits. Degenerative spurring of the spine. IMPRESSION: No evidence of acute cardiopulmonary disease. Dictated and Authenticated by: Armond Oneal MD. Ordering:ALIE HUDSON MD
--- NOTE | 2017-12-04 18:59 | DI.RAD_ITS ---
SYMPTOM/DIAGNOSIS: CENTRAL LINE PLACED PORTABLE AP CHEST: Since the previous examination a right internal jugular central venous catheter has been inserted. The tip projecting over the mid superior vena cava. There is no evidence of a pneumothorax or pulmonary consolidation. Persistent interstitial lung scarring is noted. SUMMARY: A central venous catheter is in good position.
--- NOTE | 2017-12-04 19:23 | DI.VRAD_ITS ---
EXAM: XR Chest, 1 View CLINICAL HISTORY: 62 years old, female; Device placement; Picc TECHNIQUE: Frontal view of the chest. COMPARISON: CR XR CHEST 2V PA LATERAL 12/04/2017 4:52 PM FINDINGS: Interval insertion of right internal jugular central catheter with tip projecting over the mid superior vena cava. No evidence of pneumothorax. No definite new consolidation. Persistent interstitial lung scarring. IMPRESSION: Insertion of central catheter in good position without evidence of complication. Dictated and Authenticated by: Armond Oneal MD. Ordering:ALIE HUDSON MD
--- NOTE | 2017-12-04 20:20 | W.SURGCON ---
Date of service: 12/04/17 Time of Service: 18:00 Assessment and Plan (1) Shock circulatory: Start date: 12/04/17 Start time: 16:00 Current visit: Yes Status: Acute Triple-lumen catheter placed in the right internal jugular vein positioning confirmed by x-ray no evidence of pneumothorax History of Present Illness Chief Complaint: Septic shock Narrative: 62-year-old woman presenting in the emergency room septic shock. Central venous access required for pressor support, surgery was consulte for central venous access the triple-lumen catheter Consults Consult date: 12/04/17 Requesting physician: Bianka Quiroz Review of Systems Review of Systems Unobtainable due to mental status PFSH Family History Mother Diabetes Essential hypertension Depression Heart disease Hyperlipidemia Neoplasm Cerebrovascular accident Father Heart disease Myocardial infarction Sister Hyperlipidemia Asthma Grandfather Neoplasm Grandfather No problems noted. Grandmother Cerebrovascular accident Grandmother No problems noted. Son Diabetes Asthma Daughter Anxiety Heart disease Sister No problems noted. 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 pets and animals: Yes pets and animals: cat(s) frequency: 3-4 times per week duration: 45-60 minutes/day Smoking/Tobacco Use Status: Current every day tobacco type: cigarettes alcohol intake: never substance use type: does not use cari/gnosticism: Pentecostalism special cari needs: No seatbelt use: always Surgical History Cervical Procedure (~1989) Endometrial Biopsy (~2002) Ligation of fallopian tube Exam Narrative Exam Narrative: Patient was responsive to questions, tachycardic, hypotensive, she was breathing on her own with O2 sats in the mid 90s on oxygen Results Labs : 12/04/17 16:00 12/04/17 16:00 Laboratory Results - last 24 hr 12/04/17 12/04/17 12/04/17 16:00 16:00 16:00 WBC 20.93 H RBC 2.92 L Hgb 7.9 L Hct 24.8 L MCV 84.9 MCH 27.1 MCHC 31.9 L RDW 17.1 H Plt Count 527 H MPV 8.4 Immature Gran % 0.0 Neutrophils % 93.0 Lymphocytes % 4.0 Monocytes % 3.0 Eosinophils % 0.0 Basophils % 0.0 Absolute Neutrophils 19.46 H Band Neutrophils 0.0 Absolute Lymphocytes 0.84 L Absolute Monocytes 0.63 Absolute Eosinophils 0.00 Absolute Basophils 0.00 Differential Comment Manual differential Atypical Lymphocytes 0 RBC Morphology See below Polychromasia Present Hypochromasia 1+ Basophilic Stippling Present Macrocytosis 1+ Sodium 122 L* D Potassium 4.5 Chloride 88 L Carbon Dioxide 19.3 L Anion Gap 14.7 H BUN 31 H D Creatinine 1.87 H D Estimated GFR/1.73 m2 27.11 Glucose 53 L D Lactate 2.9 H Calcium 8.6 Magnesium 1.1 L Total Bilirubin 0.6 AST 57 H ALT 42 Alkaline Phosphatase 137 H Troponin I < 0.02 Total Protein 6.7 Albumin 1.7 L Urine Color Urine Clarity Urine pH Ur Specific Ackley Urine Protein Urine Ketones Urine Blood Urine Nitrite Urine Bilirubin Urine Urobilinogen Ur Leukocyte Esterase Urine RBC Urine WBC Ur Epithelial Cells Urine Crystals Urine Bacteria Urine Casts Urine Mucus Urine Other Ur Culture Indicated? Urine Glucose 12/04/17 16:50 WBC RBC Hgb Hct MCV MCH MCHC RDW Plt Count MPV Immature Gran % Neutrophils % Lymphocytes % Monocytes % Eosinophils % Basophils % Absolute Neutrophils Band Neutrophils Absolute Lymphocytes Absolute Monocytes Absolute Eosinophils Absolute Basophils Differential Comment Atypical Lymphocytes RBC Morphology Polychromasia Hypochromasia Basophilic Stippling Macrocytosis Sodium Potassium Chloride Carbon Dioxide Anion Gap BUN Creatinine Estimated GFR/1.73 m2 Glucose Lactate Calcium Magnesium Total Bilirubin AST ALT Alkaline Phosphatase Troponin I Total Protein Albumin Urine Color Yellow Urine Clarity Cloudy Urine pH 6.0 Ur Specific Ackley 1.010 Urine Protein 100 H Urine Ketones Negative Urine Blood Moderate H Urine Nitrite Negative Urine Bilirubin Small H Urine Urobilinogen 1.0 H Ur Leukocyte Esterase Large H Urine RBC >50 H Urine WBC >50 Ur Epithelial Cells Few Urine Crystals Negative Urine Bacteria Many Urine Casts Negative Urine Mucus Heavy Urine Other Negative Ur Culture Indicated? Yes Urine Glucose Negative XR Chest, 1 View CLINICAL HISTORY: 62 years old, female; Device placement; Picc COMPARISON: CR XR CHEST 2V PA LATERAL 12/04/2017 4:52 PM FINDINGS: Interval insertion of right internal jugular central catheter with tip projecting over the mid superior vena cava. No evidence of pneumothorax. No definite new consolidation. persistent interstitial lung scarring. IMPRESSION: Insertion of central catheter in good position without evidence of complication. Procedures Central Line Placement Right IJ: Time out performed: Yes Patient placed on monitor/pulse ox: Yes MD prep: mask, gown and gloves Central line prep: Chlorhexidine scrub and sterile drapes applied Local anesthesia used: lidocaine 1% Amount of anesthesia used (ml): 5 Ultrasound used for placement: Yes Central line lumen inserted: triple Post procedure: sutured in place, good blood return, all ports aspirated, flushed, capped and sterile dressing applied Post procedure x-ray: tip of catheter in good position and no pneumothorax seen Patient tolerated procedure: well and no complications Complications: none Additional comments: Under sterile conditions right subclavian vein was attempted to be accessed without success by anatomic guidance. Ultrasound was then used to access the right anterior jugular vein. Under ultrasound guidance the right internal jugular vein was identified and accessed by insertion needle. A guidewire was then advanced through the introducer needle into the superior vena cava. A stab incision was then made in the skin at the wire entry site. Dilator was then passed over wire into the internal jugular vein and removed. The triple-lumen catheter was then advanced over the wire to 18 cm, and the wire was removed. All 3 lm were tested; the lines withdrew and flushed with ease. Central venous catheter was then sewn in place with 2-0 silk suture three-point fixation. A sterile dressing was placed over the catheter. Postprocedure chest x-ray demonstrated the tip of the catheter in the superior vena cava, and no pneumothorax was seen. There are no complications during the case the patient how the procedure well.
--- NOTE | 2017-12-04 20:59 | W.PM.HP.N ---
Date of service: 12/04/17 Time of Service: 21:00 Assessment and Plan (1) Shock circulatory: Current visit: Yes Status: Acute Septic shock, likely urologic source. Fluid resuscitation with >4 liters isotonic fluids has been given, now on norepinephrine drip. I agree with pip/tazo as coverage for GI/ source of infection. No signs of other source. Admitted to ICU for titration and monitoring. (2) Mass of anus: Current visit: Yes Status: Acute Currently getting treatment for anal cancer. Per oncology notes T3N0M0 and potentially curable. Current chemo is mitomycin c and capecitabine orally. Holding fentanyl patch with hypotension, but will resume when stable. I will give IV opioids as needed. Plan was palliative consult this week, will see if we can get it inpatient. (3) Hypothyroidism: Current visit: Yes Status: Acute h/o Graves, now hypothyroid. Continue current supplument. TSH normal at 1.68 (4) Essential hypertension: Current visit: Yes Status: Acute Holding BP meds with hypotension. (5) Diabetes mellitus: Current visit: Yes Status: Acute Holding oral metformin and glipizide. Will monitor blood sugar and cover with sliding scale, low dose to start. (6) Smoker: Current visit: Yes Status: Acute Smokes 1-2/day. She doesn't think she will need NRT. Encouraged cessation. (7) SVT (supraventricular tachycardia): Current visit: Yes Status: Chronic Having frequent episodes of intermittent sudden tachycardia. Appears regular. EKG c/w SVT rather than Afib. Given concern for tachycardia affecting cardiac output, after discussion with Bianka Garrett we considered diltiazem driop along with pressor to control rate while maintaining blood pressure, but the tachycardia improved as the patient stabilized. (8) Anemia: Current visit: Yes Status: Chronic hgb 7.9 down from 9.1 two days ago. Anemia likely related to ongoing slow blood loss. Will follow and transfuse if below 7 or if acute bleeding occurs. I will go ahead and give DVT prophylaxis given risk with active maligancy (9) Hypomagnesemia: Current visit: Yes Status: Acute Treatment started in ED and stopped with pulse going up and down. I do think this should be replaced as it may stabilize the heart. (10) Acute kidney failure: Current visit: Yes Status: Acute likely prerenal with sepsis. Monitor GFR and urine output. History of Present Illness Chief Complaint: fevers Narrative: 62 yo F with a history of squamous cell carcinoma of the anus who recently initiated chemotherapy and radiation 1 day prior to admission who is presenting after being sent from the cancer center with fevers and malaise. She states she felt well until the day prior to the admission in the afternoon, when she started to get some shaking chills. She had just started chemotherapy and radiation that morning, 03 December, so she attributed to to her symptoms to a side effect from her chemotherapy. Saturday today she presented again for radiation and had a fever to 38.1. She had neutropenia recently and there was a concern for neutropenic fever. Other than the fevers, chills, fatigue, and general malaise, the patient denies other focal symptoms such as cough, sore throat, pain with urination, or abdominal pain. She does say she is urinating smaller amounts than previously. She does have small irregular stools along with discharge from her anal lesion. She does have blood with wiping, but no overt anal bleeding. Of note, the patient seen in the emergency room on 12/02/2017 with pain. The pain in the anal area had improved with increase of her opiate medications. She describes the pain as burning. Review of Systems Constitutional Reports as per HPI, Denies headache(s), Reports poor appetite and Denies weakness Eyes Denies loss of vision and Denies other visual disturbances ENT Denies dental pain, Reports dizziness, Reports dry mouth, Denies headache(s), Denies mouth lesions and Denies sore throat Cardiovascular Denies chest pain, Denies rapid heart rate and Denies edema Respiratory Denies cough and Denies excessive phlegm production Gastrointestinal Denies abdominal pain, Denies change in bowel habits, Denies dyspepsia, Reports nausea and Denies vomiting Genitourinary Denies abnormal vaginal bleeding, Denies dysuria, Denies urinary urgency and Denies vaginal discharge Musculoskeletal Denies joint swelling Integumentary/Breasts Denies lesions and Denies rash Neurologic Reports dizziness, Denies headache(s), Denies loss of vision, Denies sensory deficit and Denies weakness Hematologic/Lymphatic Denies easy bleeding PFSH Family History Mother Diabetes Essential hypertension Depression Heart disease Hyperlipidemia Neoplasm Cerebrovascular accident Father Heart disease Myocardial infarction Sister Hyperlipidemia Asthma Grandfather Neoplasm Grandfather No problems noted. Grandmother Cerebrovascular accident Grandmother No problems noted. Son Diabetes Asthma Daughter Anxiety Heart disease Sister No problems noted. 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 [employer] pets and animals: Yes pets and animals: cat(s) frequency: 3-4 times per week duration: 45-60 minutes/day Smoking/Tobacco Use Status: Current every day tobacco type: cigarettes alcohol intake: never substance use type: does not use cari/restorationist: Uatsdin special cari needs: No seatbelt use: always Surgical History Cervical Procedure (~1989) Endometrial Biopsy (~2002) Ligation of fallopian tube Meds Home Medications Medication Instructions Recorded Confirmed Type acetaminophen 1 tab PO PRN 06/29/12 12/04/17 History aspirin [Ecotrin Low Strength] 1 tab PO DAILY 06/29/12 12/04/17 History calcium carbonate 1 tab.chew PO BID 06/29/12 12/04/17 History blood-glucose meter #1 ea 10/04/14 12/04/17 History ascorbic [id number] 1 packet PO PRN 07/26/15 12/04/17 History [Emergen-C] fluocinolone [Synalar] 1 applic TOPICAL BID #1 script 03/28/16 12/04/17 History metformin 1 tab PO BID #180 tab-cap 11/26/16 12/04/17 Rx simvastatin [Zocor] 1 tab PO HS #90 tab-cap 11/26/16 12/04/17 Rx lancets #200 ea 02/13/17 12/04/17 Rx blood sugar diagnostic [Blood #200 strip 03/28/17 12/04/17 Rx Glucose Test] levothyroxine [Synthroid] 1 tab PO DAILY #90 tab-cap 05/14/17 12/04/17 Rx lisinopril 20 mg PO DAILY #90 tab-cap 05/14/17 12/04/17 Rx polyethylene glycol 3350 17 17 gm PO DAILY PRN #255 gm 11/18/17 12/04/17 Rx gram/dose oral powder fentanyl 12.5 mcg TRANSDERMAL DIRECTED 12/02/17 12/04/17 History glipizide 2.5 - 5 mg PO DAILY 12/02/17 12/04/17 History morphine 15 mg PO Q6H PRN 3 Days #12 tab 12/02/17 12/04/17 Rx naloxone [Narcan] 1 spray JORGE ONCE PRN #2 each 12/02/17 12/04/17 Rx ondansetron [Zofran ODT] 4 mg PO PRN PRN 12/04/17 12/04/17 History Allergies Allergy/AdvReac Type Severity Reaction Status Date / Time codeine Allergy Unverified 12/04/17 15:29 copper Allergy Skin Rash Unverified 12/04/17 15:29 latex Allergy Unverified 12/04/17 15:29 lidocaine Allergy Itching Unverified 12/04/17 15:29 Exam Const General: cooperative and ill appearing Nutritional Appearance: overweight Orientation: awake and oriented x3 Other: a little slow to respond and recall details HENTN Head: atraumatic General nose exam: external nose normal Mouth: oropharynx normal and mucous membranes dry Teeth and gingiva: dentures Eyes Conjunctivae: conjunctivae normal Sclera: sclerae normal Pupils: PERRL EOM: EOM intact bilaterally Neck Neck: normal visual inspection and no lymphadenopathy Lymphatic: no lymphadenopathy noted Resp Effort & Inspection: normal respiratory effort, able to speak in complete sentences and no audible wheezes Cardio Rate: tachycardic Rhythm: abnormal rhythm Heart Sounds: S1 normal, S2 normal and no murmurs Pulses: radial pulses present Other: rate 70-90s, jumps suddenly to 140s GI Inspection: normal to inspection Palpation: soft and hepatosplenomegaly present Auscultation: normal bowel sounds Other: anus not draining or bleeding but rectal exam not performed Back/Spine/Pelvis Back: No CVA tenderness Other: no focal joint tenderness/swelling Skin General skin exam: no rashes or lesions noted Rashes: no rashes Neuro General: oriented x3, tone normal and moves all extremities Motor: no tremors Extrem General: normal to inspection and no pedal edema Imaging: CXR: No evidence of cardiopulmonary disease. Central line in place on repeat chest x-ray. Results Labs : 12/04/17 16:00 12/04/17 16:00 Laboratory Results - last 24 hr 12/04/17 12/04/17 12/04/17 16:00 16:00 16:00 WBC 20.93 H RBC 2.92 L Hgb 7.9 L Hct 24.8 L MCV 84.9 MCH 27.1 MCHC 31.9 L RDW 17.1 H Plt Count 527 H MPV 8.4 Immature Gran % 0.0 Neutrophils % 93.0 Lymphocytes % 4.0 Monocytes % 3.0 Eosinophils % 0.0 Basophils % 0.0 Absolute Neutrophils 19.46 H Band Neutrophils 0.0 Absolute Lymphocytes 0.84 L Absolute Monocytes 0.63 Absolute Eosinophils 0.00 Absolute Basophils 0.00 Differential Comment Manual differential Atypical Lymphocytes 0 RBC Morphology See below Polychromasia Present Hypochromasia 1+ Basophilic Stippling Present Macrocytosis 1+ Sodium 122 L* D Potassium 4.5 Chloride 88 L Carbon Dioxide 19.3 L Anion Gap 14.7 H BUN 31 H D Creatinine 1.87 H D Estimated GFR/1.73 m2 27.11 Glucose 53 L D Lactate 2.9 H Calcium 8.6 Magnesium 1.1 L Total Bilirubin 0.6 AST 57 H ALT 42 Alkaline Phosphatase 137 H Troponin I < 0.02 Total Protein 6.7 Albumin 1.7 L Urine Color Urine Clarity Urine pH Ur Specific [place] Urine Protein Urine Ketones Urine Blood Urine Nitrite Urine Bilirubin Urine Urobilinogen Ur Leukocyte Esterase Urine RBC Urine WBC Ur Epithelial Cells Urine Crystals Urine Bacteria Urine Casts Urine Mucus Urine Other Ur Culture Indicated? Urine Glucose 12/04/17 16:50 WBC RBC Hgb Hct MCV MCH MCHC RDW Plt Count MPV Immature Gran % Neutrophils % Lymphocytes % Monocytes % Eosinophils % Basophils % Absolute Neutrophils Band Neutrophils Absolute Lymphocytes Absolute Monocytes Absolute Eosinophils Absolute Basophils Differential Comment Atypical Lymphocytes RBC Morphology Polychromasia Hypochromasia Basophilic Stippling Macrocytosis Sodium Potassium Chloride Carbon Dioxide Anion Gap BUN Creatinine Estimated GFR/1.73 m2 Glucose Lactate Calcium Magnesium Total Bilirubin AST ALT Alkaline Phosphatase Troponin I Total Protein Albumin Urine Color Yellow Urine Clarity Cloudy Urine pH 6.0 Ur Specific [place] 1.010 Urine Protein 100 H Urine Ketones Negative Urine Blood Moderate H Urine Nitrite Negative Urine Bilirubin Small H Urine Urobilinogen 1.0 H Ur Leukocyte Esterase Large H Urine RBC >50 H Urine WBC >50 Ur Epithelial Cells Few Urine Crystals Negative Urine Bacteria Many Urine Casts Negative Urine Mucus Heavy Urine Other Negative Ur Culture Indicated? Yes Urine Glucose Negative
[2017-12-04 21:42] LABS: TSH (W/Ref FT4) 1.68 uIU/mL (0.358-3.74)
[2017-12-04] MEDS: Simvastatin 10 MG TAB PO (23:53)
[2017-12-04] MEDS: MAGNESIUM SULFATE 2 GM/50 ML BAG IVPB (23:54)
[2017-12-04] MEDS: Enoxaparin 40 MG/0.4 ML SYR SC (23:54)
[2017-12-05] VITALS (113 sets, daily range): BP systolic 71–143; BP diastolic 25–90; PULSE 72–100; RESP 0–28; TEMP 36.2–36.9; O2SAT 89–100
[2017-12-05] MEDS: Normal Saline 1,000 ML 150 ML IV (05:44)
[2017-12-05 07:26] LABS: Anion Gap 12.2 mmol/L (3-11); BUN 30 mg/dL (7-18); CO2 19.8 mmol/L (21.0-32.0); CREATININE 1.54 mg/dL (0.55-1.02); Calcium 8.1 mg/dL (8.5-10.1); Chloride 99 mmol/L (98-107); Estimated GFR 33.92 (mL/min/1.73m2); Glucose 234 mg/dL (70-100); Potassium 5.1 mmol/L (3.5-5.1); Sodium 131 mmol/L (136-145)
[2017-12-05 07:30] LABS: Abs Immature Grans 0.31 k/cumm (0.0-0.09); Absolute Lymphocyte Count 0.72 k/cumm (1.2-3.4); Absolute Monocyte Count 0.92 k/cumm (0.11-0.7); Basophils % 0.1; HCT 26.9 % (36.0-46.0); HGB 8.3 g/dL (12.0-15.5); Immature Grans % 1.7; Lymphocytes % 3.9; Mean Corp. HGB Concentration 30.9 g/dL (32.0-36.0); Mean Corpuscular Hemoglobin 26.3 pg (27.0-33.0); Mean Corpuscular Volume 85.1 fL (80-95); Mean Platelet Volume 8.6 fL (8.0-11.0); Neutrophils % 89.3; Platelet Count 568 x1000/uL (130-400); RBC 3.16 m/cumm (4.00-5.20); RBC Distribution Width 17.3 % (11.7-14.6); White Blood Cell Count 18.36 k/cumm (4.4-10.8)
[2017-12-05 07:35] LABS: Absolute Basophil Count 0.02 k/cumm (0.0-0.2)
[2017-12-05 08:32] LABS: Lactate-non-spesis 0.9 mmol/L (0.6-1.4)
[2017-12-05] MEDS: Aspirin E.C. 81 MG TABEC PO (08:49)
--- NOTE | 2017-12-05 08:49 | PHARADMIT ---
Addendum entered by Guilherme Gonzalez III 12/09/17 14:32: Pharmacy Note Subjective MD to transfer patient to med/Surg later today. Objective VS-OK pain:810 K+3.9 SCr-1.11 H&H-8.4/28.1 FSBS-150 ANC-2.46 WBC- 3.14 Had BM Assessment E-coli UTI,,,Zosyn changed to Kefelx PO Protonix to PO Plan Patient experienced a run of SVT over night, MD to evaluate. CM note no beds at [facility] till later in the week. Original Note: Addendum entered by Lauren Schmitz 12/07/17 11:25: Pharmacy Note Subjective palliative consult done , possible discharge to SNF when ready Objective afebrile, bp 87/49, Mag 1.6, FS 158 Assessment norepinephrine drip paused yesterday, per nursing it may be restarted today. pip/tazo continues Plan expect mag replacement order, make norepi infusion if restarted Original Note: Addendum entered by Guilherme Gonzalez III 12/06/17 16:45: Pharmacy Note Subjective Newly diagnosed Rectal CA, Urosepsis and can not maintain BP. Norepinephrine has not been weaned. Immuno-compromised from chemo Objective BP-87/38 Na-129 K+4.4 SCr-1.33 H&H-7.4/24.0 WBC-10.68 Plts-ok Had BM Wgt-up 96.5kg Assessment Heparin SQ, On Zosyn for e-coli Tylenol added for pain, MD would like her on less morphine. Fentanyl Patch (home med) re-started Plan MD was considering adding Vanco Original Note: Admission Pharmacy Clinical Review SEPSIS, UTI, SHOCK Code Status Full Code Current Weight Wgt-97 kg Renally Cleared and Narrow Therapeutic Index Meds CrCl~ 30.5 mL/min Meds-OK QTc Value / Action Taken na BP Control, Fever BP- 118/47 Tmax- 36.4C Electrolytes reviewed Na- 131 K+5.1 Mag-2.0 DVT Prophylaxis Lovenox 30mg, ASA Opiate Usage / Scheduled Bowel Regimen Ordered Yes No Plt/SCr for Heparin / Enoxaparin Plts-568 SCr-1.54 INR for Warfarin na H/H stable, WBC/Bands H&H- 8.3/26.9 WBC- 18.36 Antibiotic appropriateness Zosyn, Rocephin Both X 1 Cultures and Sensitivities Blood, Urine-Pending Surgical ABX d/c within 24 hr na DM control / Insulin Dosing BG- 234 Aspart Heart Failure (Check EF%) (JOSÉ LUIS's, B-Block, Diuretics) Levophed drip, IV to PO Switch No Home Meds Reviewed Yes Home Meds Not Ordered Lisinopril, Metformin, Glipizide, Vit-C, Calcium, Fentanyl Patch, Comments
[2017-12-05] MEDS: Insulin Aspart 300 UNITS/3 ML PEN SC ×3 (08:50→17:13)
[2017-12-05] MEDS: Normal Saline 500 ML 30 ML IV (11:20)
--- NOTE | 2017-12-05 11:28 | PDOC.CMIN ---
- If Service Date Differs Date of service: 12/05/17 Time of Service: 11:28 Care Management Initial Assess REASON FOR HOSPITALIZATION:: UTI, sepsis PAST MEDICAL HISTORY/PAST SURGICAL HISTORY:: SVT, anemia, hypothyroidisim, hyperlipidemia, GERD, essential HTN, DM PREVIOUS FUNCTIONAL STATUS/SOCIAL/FAMILY SUPPORTS:: Sherry lives at home she is independent at base line. She states she was recently diagnosed with Anal cancer, she is currently receiving chemotherapy and radiation treatment. Her [facility]. She has two children her daughter Nila lives locally and is supportive her son is in [place]. She has a sister in law that is present. CURRENT FUNCTIONAL STATUS:: Sherry, is sitting on the edge of the bed her spouse and sister in law are present in the room. Sherry gives permission to speak while they are in the room. Sherry states she would like to transition to [facility] if she is able to at the time of discharge. She states she lives on the second floor and is to weak to do the stairs. She is receptive to PT consult. ADVANCE DIRECTIVES:: Advance directives are not complete she would like to complete on this admission. Has patient been provided with information about the portal?: Yes Did the patient sign up for the portal?: No INSURANCE COVERAGE / FINANCIAL ISSUES:: [facility] CURRENT HOME/COMMUNITY SERVICES/EQUIPMENT:: Oncology through [facility] PRIMARY CARE PHYSICIAN:: Diane Leblanc APRN POTENTIAL DISCHARGE NEEDS:: Sherry would like to transition to [facility] stay. CM to follow up with admission coordianator, referral was sent. PATIENT/FAMILY EDUCATION NEEDS:: Discharge education, limitations, and follow up plan of care. ANTICIPATED BARRIERS TO DISCHARGE:: Anticipate a bed offer from [facility] per admissions TRANSPORTATION:: Sister in law will transport to facility via private car. PLAN:: Sherry will be discharged home vs SNF when medically ready. Sherry is awaiting bed offer from [facility]. She will continue to recieve IV antibiotics, IV fluids and medicaiton to treat hypotension. She will meet with on Saturday this week for palliative consult. CM to complete advance directives with her at that time. CM to continue to provide support to patient, family and care team ongoing discharge planning and disposition.
[2017-12-05] MEDS: Normal Saline 1,000 ML 200 ML IV ×2 (12:26→18:06)
[2017-12-05] MEDS: Normal Saline Flush 10 ML SYR IVP ×2 (12:30→13:30)
--- NOTE | 2017-12-05 12:53 | INITIAL_ITS ---
- If Service Date Differs Date of service: 12/05/17 Time of Service: 11:28 Care Management Initial Assess REASON FOR HOSPITALIZATION:: UTI, sepsis PAST MEDICAL HISTORY/PAST SURGICAL HISTORY:: SVT, anemia, hypothyroidisim, hyperlipidemia, GERD, essential HTN, DM PREVIOUS FUNCTIONAL STATUS/SOCIAL/FAMILY SUPPORTS:: Sherry lives at home she is independent at base line. She states she was recently diagnosed with Anal cancer , she is currently receiving chemotherapy and radiation treatment. Her spouse is currently at [facility] short term. She has two children her daughter Nila lives locally and is supportive her son is in [place]. She has a sister in law that is present. CURRENT FUNCTIONAL STATUS:: Sherry, is sitting on the edge of the bed her spouse and sister in law are present in the room. Sherry gives permission to speak while they are in the room. Sherry states she would like to transition to [facility] if she is able to at the time of discharge. She states she lives on the second floor and is to weak to do the stairs. She is receptive to PT consult. ADVANCE DIRECTIVES:: Advance directives are not complete she would like to complete on this admission. Has patient been provided with information about the portal?: Yes Did the patient sign up for the portal?: No INSURANCE COVERAGE / FINANCIAL ISSUES:: [facility] CURRENT HOME/COMMUNITY SERVICES/EQUIPMENT:: Oncology through [facility] PRIMARY CARE PHYSICIAN:: Diane Leblanc APRN POTENTIAL DISCHARGE NEEDS:: Sherry would like to transition to [facility] for [facility]hab stay. CM to follow up with admission coordianator, referral was sent. PATIENT/FAMILY EDUCATION NEEDS:: Discharge education, limitations, and follow up plan of care. ANTICIPATED BARRIERS TO DISCHARGE:: Anticipate a bed offer from [facility] per admissions TRANSPORTATION:: Sister in law will transport to facility via private car. PLAN:: Sherry will be discharged home vs SNF when medically ready. Sherry is awaiting bed offer from [facility]. She will continue to recieve IV antibiotics, IV fluids and medicaiton to treat hypotension. She will meet with on Saturday this week for palliative consult. CM to complete advance directives with her at that time. CM to continue to provide support to patient, family and care team ongoing discharge planning and disposition.
--- NOTE | 2017-12-05 13:02 | PGE_ITS ---
Assessment and Plan (1) Sepsis: Current visit: Yes Status: Acute Sepsis with likely urinary tract infection as source. Continue broad spectrum coverage with Pip-Tazo, currently Day #1, and await blood and urine cultures. Continue aggressive IVFs and pressor support, and wean as able. Patient appears to be improving overall. Elevated lactate resolved. (2) Acute kidney failure: Current visit: Yes Status: Acute In setting of Urinary Infection and sepsis. Creatinine improved but not yet at baseline. Avoid nephrotoxins, and renally dose medications when appropriate. JOSÉ LUIS-I on hold. (3) Hypomagnesemia: Current visit: Yes Status: Acute Replete carefully given KYLE. Check daily mag levels. (4) SVT (supraventricular tachycardia): Current visit: Yes Status: Acute Noted. Monitor on telemetry. Replete electrolytes. (5) Hypothyroidism: Current visit: Yes Status: Chronic Continue replacement therapy. (6) Anal cancer: Current visit: Yes Status: Chronic T3N0M0 SCCa. Recently initiated on Mitomycin C and Capecitabine, as well as XRT with curative intent. Fentanyl patch on hold given hypotension - will resume when appropriate. (7) Gastroesophageal reflux disease: Current visit: Yes Status: Chronic Initiate PPI therapy. (8) Diabetes mellitus: Current visit: Yes Status: Chronic Currently with Metformin and glipizide on hold. Continue ISS and monitor blood sugars. (9) DVT prophylaxis: Current visit: Yes Status: Acute SC Heparin. Subjective Interval history since last seen: 62 yo woman with a PMHx significant for SCCa of the anus, recently initiated on chemotherapy and radiation 1 day prior to admission, admitted from [facility] ED with a diagnosis of Sepsis with Urinary Source. Mrs. Werner presented to the hospital after being sent from the cancer center with fevers and malaise. She reported shaking chills on the day of admission. She had just started chemotherapy and radiation the day prior, so she attributed her symptoms to a side effect from her chemotherapy. However, on the day of admission she was noted to be febrile, and as there was concern for potential neutropenic fever she was sent for evaluation. Work-up in the emergency room was significant for a significant leukocytosis, KYLE, hyponatremia, and evidence of a UTI by urinalysis. She was hypotensive, and following insertion of a Right IJ Central Catheter the patient was started on broad spectrum antibiotics, aggressive IVFs, and pressor support. Her CXR was negative for infiltrates. She was noted to have brief but sustained runs of SVTs overnight. This morning the patient has improved but still requiring pressor support, and she has remained afebrile since her initial presentation. Exam Narrative Exam Narrative: General: Patient appears comfortable, laying in bed, AAOX3, NAD. Neck: Supple CV: Regular, nontachycardic, S1S2, No rubs, murmurs, or gallops. Pulmonary: Clear to auscultation bilaterally, no crackles, wheezing, or rhonchi Abdomen: + Bowel Sounds, soft, nontender, nondistended Vascular: No lower extremity edema Psych: Normal mood and affect. Objective Objective Clinical Data: Abnormal lab results 12/04/17 12/04/17 12/04/17 Range/Units 16:00 16:00 16:00 WBC 20.93 H (4.4-10.8) k/cumm RBC 2.92 L (4.00-5.20) m/cumm Hgb 7.9 L (12.0-15.5) g/dL Hct 24.8 L (36.0-46.0) % MCH (27.0-33.0) pg MCHC 31.9 L (32.0-36.0) g/dL RDW 17.1 H (11.7-14.6) % Plt Count 527 H (130-400) x1000/uL Absolute Neutrophils 19.46 H (1.2-6.7) k/cumm Absolute Lymphocytes 0.84 L (1.2-3.4) k/cumm Absolute Monocytes (0.11-0.7) k/cumm Sodium 122 L* D (136-145) mmol/L Chloride 88 L (98-107) mmol/L Carbon Dioxide 19.3 L (21.0-32.0) mmol/L Anion Gap 14.7 H (3-11) mmol/L BUN 31 H D (7-18) mg/dL Creatinine 1.87 H D (0.55-1.02) mg/dL Glucose 53 L D (70-100) mg/dL Lactate 2.9 H (0.6-1.4) mmol/L Calcium (8.5-10.1) mg/dL Magnesium 1.1 L (1.8-2.4) mg/dL AST 57 H (15-37) U/L Alkaline Phosphatase 137 H (46-116) U/L Albumin 1.7 L (3.4-5.0) g/dL Urine Protein (Negative) mg/dL Urine Blood (Negative) Urine Bilirubin (Negative) Urine Urobilinogen (Up TO 0.2) EU/dL Ur Leukocyte Esterase (Negative) Urine RBC (0-2) 12/04/17 12/05/17 12/05/17 Range/Units 16:50 06:40 06:40 WBC 18.36 H (4.4-10.8) k/cumm RBC 3.16 L (4.00-5.20) m/cumm Hgb 8.3 L (12.0-15.5) g/dL Hct 26.9 L (36.0-46.0) % MCH 26.3 L (27.0-33.0) pg MCHC 30.9 L (32.0-36.0) g/dL RDW 17.3 H (11.7-14.6) % Plt Count 568 H (130-400) x1000/uL Absolute Neutrophils 16.40 H (1.2-6.7) k/cumm Absolute Lymphocytes 0.72 L (1.2-3.4) k/cumm Absolute Monocytes 0.92 H (0.11-0.7) k/cumm Sodium 131 L (136-145) mmol/L Chloride (98-107) mmol/L Carbon Dioxide 19.8 L (21.0-32.0) mmol/L Anion Gap 12.2 H (3-11) mmol/L BUN 30 H (7-18) mg/dL Creatinine 1.54 H (0.55-1.02) mg/dL Glucose 234 H D (70-100) mg/dL Lactate (0.6-1.4) mmol/L Calcium 8.1 L (8.5-10.1) mg/dL Magnesium (1.8-2.4) mg/dL AST (15-37) U/L Alkaline Phosphatase (46-116) U/L Albumin (3.4-5.0) g/dL Urine Protein 100 H (Negative) mg/dL Urine Blood Moderate H (Negative) Urine Bilirubin Small H (Negative) Urine Urobilinogen 1.0 H (Up TO 0.2) EU/dL Ur Leukocyte Esterase Large H (Negative) Urine RBC >50 H (0-2) Vital Signs Temperature 36.2 C L 12/05/17 10:29 Temperature Source Temporal Artery Scan 12/05/17 10:29 Pulse 79 12/05/17 12:02 Pulse 79 12/05/17 12:02 Respiratory Rate 16 12/05/17 12:02 Respiratory Effort 12/05/17 03:36 Respiratory Depth Normal 12/05/17 03:36 Respiratory Pattern Normal 12/05/17 03:36 Blood Pressure 112/48 L 12/05/17 12:02 Blood Pressure Mean 64 12/05/17 12:02 Blood Pressure Position Supine 12/04/17 21:52 Pulse Oximetry 98 12/05/17 12:02 Oxygen Delivery Method Nasal Cannula 12/05/17 11:00 Oxygen Flow Rate 4 12/05/17 11:00 Pain Level 3 12/05/17 12:29 Intake & Output 12/04/17 12/05/17 12/05/17 23:59 11:59 23:59 Intake Total 2065.9 / 2065.689 100 / 100 Output Total 2049 400 / 400 Balance 16.689 / 16.689 -300 / -300 Weight 92.079 kg 97 kg Intake: IV 2065.689 / 2065.689 100 / 100 Output: Urine 2049 400 / 400 Other: Urine Color Yellow Yellow Urine Appearance Clear Clear Urine Odor None None Comment pt has been unable to void since arriving to ICU mixed with stool mixed with stool Stool Occult Blood Negative Stool Size Smear Stool Characteristics Liquid Voiding Methods Bedside Commode Bedside Commode Laboratory Results WBC 18.36 k/cumm (4.4-10.8) H 12/05/17 06:40 RBC 3.16 m/cumm (4.00-5.20) L 12/05/17 06:40 Hgb 8.3 g/dL (12.0-15.5) L 12/05/17 06:40 Hct 26.9 % (36.0-46.0) L 12/05/17 06:40 MCV 85.1 fL (80-95) 12/05/17 06:40 MCH 26.3 pg (27.0-33.0) L 12/05/17 06:40 MCHC 30.9 g/dL (32.0-36.0) L 12/05/17 06:40 RDW 17.3 % (11.7-14.6) H 12/05/17 06:40 Plt Count 568 x1000/uL (130-400) H 12/05/17 06:40 MPV 8.6 fL (8.0-11.0) 12/05/17 06:40 Immature Gran % 1.7 12/05/17 06:40 Neutrophils % 89.3 12/05/17 06:40 Lymphocytes % 3.9 12/05/17 06:40 Monocytes % 5.0 12/05/17 06:40 Eosinophils % 0.0 12/05/17 06:40 Basophils % 0.1 12/05/17 06:40 Absolute Neutrophils 16.40 k/cumm (1.2-6.7) H 12/05/17 06:40 Band Neutrophils 0.0 % 12/04/17 16:00 Absolute Lymphocytes 0.72 k/cumm (1.2-3.4) L 12/05/17 06:40 Absolute Monocytes 0.92 k/cumm (0.11-0.7) H 12/05/17 06:40 Absolute Eosinophils 0.00 k/cumm (0.0-0.7) 12/05/17 06:40 Absolute Basophils 0.02 k/cumm (0.0-0.2) 12/05/17 06:40 Differential Comment Manual differential 12/04/17 16:00 Atypical Lymphocytes 0 12/04/17 16:00 RBC Morphology See below 12/04/17 16:00 Polychromasia Present 12/04/17 16:00 Hypochromasia 1+ 12/04/17 16:00 Basophilic Stippling Present 12/04/17 16:00 Macrocytosis 1+ 12/04/17 16:00 Sodium 131 mmol/L (136-145) L 12/05/17 06:40 Potassium 5.1 mmol/L (3.5-5.1) 12/05/17 06:40 Chloride 99 mmol/L (98-107) 12/05/17 06:40 Carbon Dioxide 19.8 mmol/L (21.0-32.0) L 12/05/17 06:40 Anion Gap 12.2 mmol/L (3-11) H 12/05/17 06:40 BUN 30 mg/dL (7-18) H 12/05/17 06:40 Creatinine 1.54 mg/dL (0.55-1.02) H 12/05/17 06:40 Estimated GFR/1.73 m2 33.92 (mL/min/1.73m2) 12/05/17 06:40 Glucose 234 mg/dL (70-100) H D 12/05/17 06:40 Lactate 0.9 mmol/L (0.6-1.4) 12/05/17 08:25 Calcium 8.1 mg/dL (8.5-10.1) L 12/05/17 06:40 Magnesium 2.0 mg/dL (1.8-2.4) 12/05/17 06:40 Total Bilirubin 0.6 mg/dL (0.2-1.0) 12/04/17 16:00 AST 57 U/L (15-37) H 12/04/17 16:00 ALT 42 U/L (12-78) 12/04/17 16:00 Alkaline Phosphatase 137 U/L (46-116) H 12/04/17 16:00 Troponin I < 0.02 ng/mL (0.00-0.06) 12/04/17 16:00 Total Protein 6.7 g/dL (6.4-8.2) 12/04/17 16:00 Albumin 1.7 g/dL (3.4-5.0) L 12/04/17 16:00 TSH 1.68 uIU/mL (0.358-3.74) 12/04/17 18:00 Urine Color Yellow (Yellow) 12/04/17 16:50 Urine Clarity Cloudy 12/04/17 16:50 Urine pH 6.0 (5-8) 12/04/17 16:50 Ur Specific [place] 1.010 (1.005-1.025) 12/04/17 16:50 Urine Protein 100 mg/dL (Negative) H 12/04/17 16:50 Urine Ketones Negative mg/dL (Negative) 12/04/17 16:50 Urine Blood Moderate (Negative) H 12/04/17 16:50 Urine Nitrite Negative (Negative) 12/04/17 16:50 Urine Bilirubin Small (Negative) H 12/04/17 16:50 Urine Urobilinogen 1.0 EU/dL (Up TO 0.2) H 12/04/17 16:50 Ur Leukocyte Esterase Large (Negative) H 12/04/17 16:50 Urine RBC >50 (0-2) H 12/04/17 16:50 Urine WBC >50 HPF (0-5) 12/04/17 16:50 Ur Epithelial Cells Few HPF (Negative) 12/04/17 16:50 Urine Crystals Negative HPF (Negative) 12/04/17 16:50 Urine Bacteria Many HPF (Negative) 12/04/17 16:50 Urine Casts Negative LPF (Negative) 12/04/17 16:50 Urine Mucus Heavy (Negative) 12/04/17 16:50 Urine Other Negative (Negative) 12/04/17 16:50 Ur Culture Indicated? Yes 12/04/17 16:50 Urine Glucose Negative mg/dL (Negative) 12/04/17 16:50
[2017-12-05] MEDS: Heparin 5,000 UNITS/ML VIAL 5000 UNITS SC ×2 (13:30→21:28)
[2017-12-05] MEDS: Pantoprazole 40 MG VIAL IVP (13:30)
--- NOTE | 2017-12-05 15:23 | CHAPLAIN ---
Sherry was sitting up in bed when we visited. She told me about her cancer diagnosis in September and treatment since then. She has been dealing with pain and being very tired, she said. Her family has been a strong support for her. Since her diagnosis, she said it has been a change of roles for her and her as she usually cares for him. 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 She is concerned about what her time off for treatment and recovery will do for her assisted benefits and said she has been directed by a coworker to go to [facility].
[2017-12-05] MEDS: Simvastatin 10 MG TAB PO (21:27)
[2017-12-06] VITALS (74 sets, daily range): BP systolic 83–138; BP diastolic 30–91; PULSE 72–105; RESP 12–27; TEMP 36.2–37.1; O2SAT 85–97
[2017-12-06] MEDS: Normal Saline 1,000 ML 200 ML IV ×4 (00:40→21:48)
[2017-12-06] MEDS: Normal Saline 1,000 ML 125 ML IV (05:48)
[2017-12-06] MEDS: Heparin 5,000 UNITS/ML VIAL 5000 UNITS SC ×3 (06:05→20:33)
[2017-12-06] MEDS: Insulin Aspart 300 UNITS/3 ML PEN SC ×3 (06:06→16:54)
[2017-12-06 07:11] LABS: Abs Immature Grans 0.36 k/cumm (0.0-0.09); HGB 7.4 g/dL (12.0-15.5); Mean Corp. HGB Concentration 30.8 g/dL (32.0-36.0); Mean Corpuscular Hemoglobin 26.3 pg (27.0-33.0); Mean Corpuscular Volume 85.4 fL (80-95); Mean Platelet Volume 8.4 fL (8.0-11.0); Platelet Count 480 x1000/uL (130-400); RBC 2.81 m/cumm (4.00-5.20); RBC Distribution Width 17.5 % (11.7-14.6); White Blood Cell Count 10.68 k/cumm (4.4-10.8)
[2017-12-06 07:33] LABS: ALT 27 U/L (12-78); AST 33 U/L (15-37); Albumin 1.3 g/dL (3.4-5.0); Alkaline Phosphatase 135 U/L (46-116); Anion Gap 11.1 mmol/L (3-11); BUN 21 mg/dL (7-18); Bilirubin, Total 0.3 mg/dL (0.2-1.0); CO2 18.9 mmol/L (21.0-32.0); CREATININE 1.33 mg/dL (0.55-1.02); Calcium 7.8 mg/dL (8.5-10.1); Chloride 99 mmol/L (98-107); Estimated GFR 40.17 (mL/min/1.73m2); Glucose 278 mg/dL (70-100); Magnesium 1.7 mg/dL (1.8-2.4); Potassium 4.4 mmol/L (3.5-5.1); Sodium 129 mmol/L (136-145); Total Protein 5.8 g/dL (6.4-8.2)
[2017-12-06 08:29] LABS: Absolute Lymphocyte Count 0.96 k/cumm (1.2-3.4); Absolute Monocyte Count 0.21 k/cumm (0.11-0.7); Absolute Neutrophil Count 9.51 k/cumm (1.2-6.7); Diff Comment Manual Differential
[2017-12-06 08:30] LABS: Hypochromasia 2+; Poikilocytes 1+
[2017-12-06] MEDS: MAGNESIUM SULFATE 1 GM/100 ML BAG IVPB (10:11)
[2017-12-06] MEDS: Pantoprazole 40 MG VIAL IVP (10:16)
[2017-12-06] MEDS: Aspirin E.C. 81 MG TABEC PO (10:17)
--- NOTE | 2017-12-06 10:24 | DM INPTCON_ITS ---
DESCRIPTION/ASSESSMENT: Appreciate diabetes consult for Sherry Werner who is hospitalized with possible complications of chemotherapy. A1c 7.8 BMI 37 Blood sugars this hospitalization 251-326 taking sensitive insulin correction. She takes Metformin and Glipizide at home. She is eating 35-49 grams carbohydrate at a meal. She is known to outpatient diabetes from the distant past. She has maintained reasonable glycemic control given the time she has had diabetes. She is not visited at this time due to her current condition. INTERVENTION: Suggest insulin correction at the resistant level given her body mass and elevated blood sugars during this potentially infectious time. PLAN: WIll follow blood sugars and follow up for self management as appropriate.
--- NOTE | 2017-12-06 12:06 | PDOC.CMPRO ---
- If Service Date Differs Date of service: 12/06/17 Time of Service: 12:06 Care Management Progress Note S/O: CM met with patient at the bedside her sister Butch and friend Judy are present during palliative care meeting. Sherry was able to complete her advance directives. She feels that going to [facility] will be her best option prior to returning home. Currently awaiting a bed offer. During the meeting Sherry expressed that she is feeling weak, she has struggled with pain control since treatments have started for cancer. 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 She has been independent up until her recent diagnosis of cancer and feels that short term rehab may give her the time she needs to build her strength up to return home. Butch is considering applying for SSDI and SSI due to diagnosis and treatment. Her short term disability benefit is going to be complete at 3 months and she is not sure financial what she will do at that point for income. CM will contact Shanique Ramos at [facility] and ask that she assist Sherry in completing applications for SSI, SSDI and care home medicaid if needed. Currently Sherry remains acute and her radiation treatments are on hold while inpatient. Anticipate she will follow up with [facility] once she is discharged to complete her first round of treatment for cancer. A:Sherry is a 62 year female admitted with sepsis with a recent diagnosis of anal cancer P: Sherry continues to receive care in the ICU, she is receiving IV antibiotics, she has a central line in place and continues to receive IV fluids. Plan will be for her to transition to [facility] pending bed offer and insurance approval. CM spoke with admission coordinator who will confirm with CM when information available. CM to continue to provide support to patient, family and care team ongoing discharge planning and disposition.
--- NOTE | 2017-12-06 12:32 | CMPROGNOTE_ITS ---
- If Service Date Differs Date of service: 12/06/17 Time of Service: 12:06 Care Management Progress Note S/O: CM met with patient at the bedside her sister Butch and friend Judy are present during palliative care meeting. Sherry was able to complete her advance directives. She feels that going to [facility] will be her best option prior to returning home. Currently awaiting a bed offer. During the meeting Sherry expressed that she is feeling weak, she has struggled with pain control since treatments have started for cancer. 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 She has been independent up until her recent diagnosis of cancer and feels that short term rehab may give her the time she needs to build her strength up to return home. Butch is considering applying for SSDI and SSI due to diagnosis and treatment. Her short term disability benefit is going to be complete at 3 months and she is not sure financial what she will do at that point for income. CM will contact Shanique Ramos at [facility] and ask that she assist Sherry in completing applications for SSI, SSDI and intermediate medicaid if needed. Currently Sherry remains acute and her radiation treatments are on hold while inpatient. Anticipate she will follow up with [facility] once she is discharged to complete her first round of treatment for cancer. A:Sherry is a 62 year female admitted with sepsis with a recent diagnosis of anal cancer P: Sherry continues to receive care in the ICU, she is receiving IV antibiotics , she has a central line in place and continues to receive IV fluids. Plan will be for her to transition to [facility] pending bed offer and insurance approval. CM spoke with admission coordinator who will confirm with CM when information available. CM to continue to provide support to patient, family and care team ongoing discharge planning and disposition.
--- NOTE | 2017-12-06 13:04 | W.PM.PROGNOT ---
Assessment and Plan (1) Sepsis: Current visit: Yes Status: Acute Sepsis with likely urinary tract infection as source. Continue broad spectrum coverage with Pip-Tazo, currently Day #2. Urine Cx with E.Coli X 2 colonies, sensitivities not yet available. BCx with no growth X24 hours. Continue aggressive IVFs and pressor support, and wean as able. Patient appears to be improving overall. Elevated lactate resolved. (2) Acute kidney failure: Current visit: Yes Status: Acute In setting of Urinary Infection and sepsis. Creatinine improved but not yet at baseline. Avoid nephrotoxins, and renally dose medications when appropriate. JOSÉ LUIS-I continues to be on hold. (3) Hypomagnesemia: Current visit: Yes Status: Acute Replete carefully given KYLE. Check daily mag levels. (4) SVT (supraventricular tachycardia): Current visit: Yes Status: Acute Noted at time of admission. Monitor on telemetry. Replete electrolytes. (5) Hypothyroidism: Current visit: Yes Status: Chronic Continue replacement therapy. (6) Anal cancer: Current visit: Yes Status: Chronic T3N0M0 SCCa. Recently initiated on Mitomycin C and Capecitabine, as well as XRT with curative intent. Fentanyl patch restarted today. Monitor pain and blood pressure carefully. Also on oral Morphine prn. (7) Gastroesophageal reflux disease: Current visit: Yes Status: Chronic Continue PPI therapy. (8) Diabetes mellitus: Current visit: Yes Status: Chronic Currently with Metformin and glipizide on hold. Continue ISS and monitor blood sugars. (9) DVT prophylaxis: Current visit: Yes Status: Acute SC Heparin. Subjective Interval history since last seen: 62 yo woman with a PMHx significant for SCCa of the anus, recently initiated on chemotherapy and radiation 1 day prior to admission, admitted from [facility] ED with a diagnosis of Sepsis with Urinary Source. Mrs. Werner presented to the hospital after being sent from the cancer center with fevers and malaise. She reported shaking chills on the day of admission. She had just started chemotherapy and radiation the day prior, so she attributed her symptoms to a side effect from her chemotherapy. However, on the day of admission she was noted to be febrile, and as there was concern for potential neutropenic fever she was sent for evaluation. Work-up in the emergency room was significant for a significant leukocytosis, KYLE, hyponatremia, and evidence of a UTI by urinalysis. She was hypotensive, and following insertion of a Right IJ Central Catheter the patient was started on broad spectrum antibiotics, aggressive IVFs, and pressor support. Her CXR was negative for infiltrates. She was noted to have brief but sustained runs of SVTs overnight. This morning the patient continues to appear improved but still requiring pressor support, albeit at minimal dosing and with excellent blood pressures, but with difficulty weaning off. She has remained afebrile since her initial presentation, and her leukocytosis has resolved. Urine Cultures are growing 2 seperate colonies of E.Coli, sensitivities still pending. Exam Narrative Exam Narrative: General: Patient appears comfortable, laying in bed, AAOX3, NAD. Neck: Supple CV: Regular, nontachycardic, S1S2, No rubs, or gallops. 2/6 LUSB murmur noted. Pulmonary: Clear to auscultation bilaterally, no crackles, wheezing, or rhonchi Abdomen: + Bowel Sounds, soft, nontender, nondistended Vascular: No lower extremity edema Psych: Normal mood and affect. Objective Objective Clinical Data: Abnormal lab results 12/06/17 12/06/17 Range/Units 06:20 06:20 RBC 2.81 L (4.00-5.20) m/cumm Hgb 7.4 L (12.0-15.5) g/dL Hct 24.0 L (36.0-46.0) % MCH 26.3 L (27.0-33.0) pg MCHC 30.8 L (32.0-36.0) g/dL RDW 17.5 H (11.7-14.6) % Plt Count 480 H (130-400) x1000/uL Absolute Neutrophils 9.51 H (1.2-6.7) k/cumm Absolute Lymphocytes 0.96 L (1.2-3.4) k/cumm Sodium 129 L (136-145) mmol/L Carbon Dioxide 18.9 L (21.0-32.0) mmol/L Anion Gap 11.1 H (3-11) mmol/L BUN 21 H D (7-18) mg/dL Creatinine 1.33 H (0.55-1.02) mg/dL Glucose 278 H (70-100) mg/dL Calcium 7.8 L (8.5-10.1) mg/dL Magnesium 1.7 L (1.8-2.4) mg/dL Alkaline Phosphatase 135 H (46-116) U/L Total Protein 5.8 L (6.4-8.2) g/dL Albumin 1.3 L (3.4-5.0) g/dL Vital Signs Temperature 36.6 C 12/06/17 07:55 Temperature Source Temporal Artery Scan 12/06/17 07:55 Pulse 91 H 12/06/17 11:20 Pulse 93 H 12/06/17 11:20 Respiratory Rate 19 12/06/17 11:20 Respiratory Effort 12/06/17 07:55 Respiratory Depth Normal 12/06/17 07:55 Respiratory Pattern Normal 12/06/17 07:55 Blood Pressure 130/57 L 12/06/17 11:20 Blood Pressure Mean 74 12/06/17 11:20 Blood Pressure Position Supine 12/06/17 07:55 Pulse Oximetry 95 12/06/17 09:51 Oxygen Delivery Method Room Air 12/06/17 07:55 Oxygen Flow Rate 0 12/06/17 07:55 Pain Level 0 12/06/17 11:44 Intake & Output 12/05/17 12/06/17 12/06/17 23:59 11:59 23:59 Intake Total 3157.045 / 3157.045 3697.967 / 3697.967 323 / 323 Output Total 1900 / 1900 1560 / 1560 Balance 1257.045 / 1528.680 8185.967 / 2137.967 323 / 323 Weight 97 kg 96.5 kg Intake: IV 2317.045 / 2317.045 2317.967 / 2317.967 323 / 323 Oral 840 / 840 1380 / 1380 Output: Urine 1900 / 1900 1560 / 1560 Other: Urine Color Yellow Yellow Urine Appearance Clear Urine Odor None Comment unable to assess urine appearance d/t stool intermixed with urine mixed with stool Stool Occult Blood Negative Stool Size Smear Smear Stool Characteristics Soft Soft Brown Brown Voiding Methods Bedside Commode Bedside Commode Laboratory Results WBC 10.68 k/cumm (4.4-10.8) D 12/06/17 06:20 RBC 2.81 m/cumm (4.00-5.20) L 12/06/17 06:20 Hgb 7.4 g/dL (12.0-15.5) L 12/06/17 06:20 Hct 24.0 % (36.0-46.0) L 12/06/17 06:20 MCV 85.4 fL (80-95) 12/06/17 06:20 MCH 26.3 pg (27.0-33.0) L 12/06/17 06:20 MCHC 30.8 g/dL (32.0-36.0) L 12/06/17 06:20 RDW 17.5 % (11.7-14.6) H 12/06/17 06:20 Plt Count 480 x1000/uL (130-400) H 12/06/17 06:20 MPV 8.4 fL (8.0-11.0) 12/06/17 06:20 Immature Gran % 0.0 12/06/17 06:20 Neutrophils % 89.0 12/06/17 06:20 Lymphocytes % 9.0 12/06/17 06:20 Monocytes % 2.0 12/06/17 06:20 Eosinophils % 0.0 12/06/17 06:20 Basophils % 0.0 12/06/17 06:20 Absolute Neutrophils 9.51 k/cumm (1.2-6.7) H 12/06/17 06:20 Band Neutrophils 0.0 % 12/04/17 16:00 Absolute Lymphocytes 0.96 k/cumm (1.2-3.4) L 12/06/17 06:20 Absolute Monocytes 0.21 k/cumm (0.11-0.7) 12/06/17 06:20 Absolute Eosinophils 0.00 k/cumm (0.0-0.7) 12/06/17 06:20 Absolute Basophils 0.00 k/cumm (0.0-0.2) 12/06/17 06:20 Differential Comment Manual differential 12/06/17 06:20 Atypical Lymphocytes 0 12/04/17 16:00 RBC Morphology See below 12/06/17 06:20 Polychromasia Present 12/04/17 16:00 Hypochromasia 2+ 12/06/17 06:20 Poikilocytosis 1+ 12/06/17 06:20 Basophilic Stippling Present 12/04/17 16:00 Macrocytosis 1+ 12/04/17 16:00 Sodium 129 mmol/L (136-145) L 12/06/17 06:20 Potassium 4.4 mmol/L (3.5-5.1) 12/06/17 06:20 Chloride 99 mmol/L (98-107) 12/06/17 06:20 Carbon Dioxide 18.9 mmol/L (21.0-32.0) L 12/06/17 06:20 Anion Gap 11.1 mmol/L (3-11) H 12/06/17 06:20 BUN 21 mg/dL (7-18) H D 12/06/17 06:20 Creatinine 1.33 mg/dL (0.55-1.02) H 12/06/17 06:20 Estimated GFR/1.73 m2 40.17 (mL/min/1.73m2) 12/06/17 06:20 Glucose 278 mg/dL (70-100) H 12/06/17 06:20 Lactate 0.9 mmol/L (0.6-1.4) 12/05/17 08:25 Calcium 7.8 mg/dL (8.5-10.1) L 12/06/17 06:20 Magnesium 1.7 mg/dL (1.8-2.4) L 12/06/17 06:20 Total Bilirubin 0.3 mg/dL (0.2-1.0) 12/06/17 06:20 AST 33 U/L (15-37) 12/06/17 06:20 ALT 27 U/L (12-78) 12/06/17 06:20 Alkaline Phosphatase 135 U/L (46-116) H 12/06/17 06:20 Troponin I < 0.02 ng/mL (0.00-0.06) 12/04/17 16:00 Total Protein 5.8 g/dL (6.4-8.2) L 12/06/17 06:20 Albumin 1.3 g/dL (3.4-5.0) L 12/06/17 06:20 TSH 1.68 uIU/mL (0.358-3.74) 12/04/17 18:00 Urine Color Yellow (Yellow) 12/04/17 16:50 Urine Clarity Cloudy 12/04/17 16:50 Urine pH 6.0 (5-8) 12/04/17 16:50 Ur Specific [place] 1.010 (1.005-1.025) 12/04/17 16:50 Urine Protein 100 mg/dL (Negative) H 12/04/17 16:50 Urine Ketones Negative mg/dL (Negative) 12/04/17 16:50 Urine Blood Moderate (Negative) H 12/04/17 16:50 Urine Nitrite Negative (Negative) 12/04/17 16:50 Urine Bilirubin Small (Negative) H 12/04/17 16:50 Urine Urobilinogen 1.0 EU/dL (Up TO 0.2) H 12/04/17 16:50 Ur Leukocyte Esterase Large (Negative) H 12/04/17 16:50 Urine RBC >50 (0-2) H 12/04/17 16:50 Urine WBC >50 HPF (0-5) 12/04/17 16:50 Ur Epithelial Cells Few HPF (Negative) 12/04/17 16:50 Urine Crystals Negative HPF (Negative) 12/04/17 16:50 Urine Bacteria Many HPF (Negative) 12/04/17 16:50 Urine Casts Negative LPF (Negative) 12/04/17 16:50 Urine Mucus Heavy (Negative) 12/04/17 16:50 Urine Other Negative (Negative) 12/04/17 16:50 Ur Culture Indicated? Yes 12/04/17 16:50 Urine Glucose Negative mg/dL (Negative) 12/04/17 16:50
[2017-12-06] MEDS: fentaNYL 12 MCG PATCH TD (14:32)
[2017-12-06] MEDS: Normal Saline Flush 10 ML SYR IVP (14:46)
--- NOTE | 2017-12-06 15:34 | W.PALLCONSUL ---
Date of service: 12/06/17 Time of Service: 10:35 History of Present Illness Chief Complaint: newly diagnosed rectal ca; urosepsis; GOC; AD Narrative: Sherry is a 62 yo woman who was having several months of constipation this summer. She had never had a colonoscopy. She asked her PCP to refer her for colonoscopy. She ws losing weight and very fatigued. She felt something might be wrong. She was working FT at [employer]. On colonoscopy, she was found to have a large partially obstructing rectal mass. She had no bleeding. She lost 20 lbs in 3 lbs. Her cancer worked revied a [id number] potentially curable rectal adenocarinoma. She was recently started on chemo and radiation. She tells me she had both an infusion and a chemo pill as well as radiation this week, her first week of treatment. She adds that she went to the ER earlier this week with pain from her cancer. Then, 2 days later, after her second day of treatment, she developed a fever. She returned to the ER where she was diagnosed with urosepsis. She continues on IV antibiotics as well as pressors in the ICU. Hospitalist Parviz Hendrickson MD is trying to wean her off of them. When I was seeing her, her sister Butch, friend Judy, and daycare manager Rebecca Jacob RN were present. We talked about goals of care and filled out most of the Advanced Directives after discussion of Sherry's wishes. Sherry's daughter Nila is her primary DPOA and her sister Butch is her secondary. She wants to get strong enough that she can continue her cancer treatments. Her is already a resident at [facility] due to severe vascular disease and dementia. She doesn't feel safe going home alone, given the 2 ER visits and now ICU admission of this past week. She has already begun discussing Acute Rehab at discharge for the next 4-6 weeks. Consults Consult date: 12/06/17 Requesting physician: Parviz Hendrickson Assessment and Plan (1) Sepsis: Start date: 12/04/17 Current visit: Yes Status: Acute Recovering well from her sepsis overall though still on pressors. Trying to wean her off. Immune system down from radiation and chemo. (2) Anal cancer: Start date: 10/09/17 Current visit: Yes Status: Chronic Just started cancer-directed treatment. Had a hard time this week. Not sure if oncology will want to drop her dosing or change her regimen due to this admission. Will follow with them next week when she is discharged. Still having burning in anus. Pain improved with addition of fentanyl patch, but still having some mental fog with IV morphine. Received a dose during my visit and she was less alert briefly. She says morphine helps with her burning pain of her anus. Would consider gabapentin if morphine continues to make her mentally foggy, (3) Smoker: Current visit: Yes Status: Acute We discussed importance of her quitting to help her benefit the most from chemo and radiation. However, all her family and friends smoke. Asked those present if they would help her quit by not smoking around her. They will, they said. Not highly motivated to quit yet. Currently not having any cravings. Usually smokes 1 ppd x 50 years (sometimes more). Says she smokes because she enjoys it. (4) Goals of care, counseling/discussion: Start date: 12/06/17 Current visit: Yes Status: Acute We reviewed her Advanced Directives. She wants to continue as a FULL CODE. She would accept up to 3 days on a vent. Her sister and friend were present for this conversation. She would NOT want a feeding tube. She would accept IVF and perhaps TPN. She would like to return to her own home when she is safe and stable. Her will likely never return from the SNF. She cannot care for him now. He has dementia and end-stage PVD. She will work with her HR at [facility] about disability, when to return to work, etc. She is considering early half-way and collection of SS. Not sure what she will do. Will need REHABILITATION CASE COORDINATOR services at discharge. (5) Advanced directives, counseling/discussion: Start date: 12/06/17 Current visit: Yes Status: Acute see above (6) Cancer related pain: Start date: 12/06/17 Current visit: Yes Status: Acute Has fentanyl patch in place with good results for overall pain. Agree with Dr. Hendrickson that this is the right medication. Will need at discharge. She prefers morphine for BTP and for burning of her anus. If this makes her too groggy, try gabapentin. Review of Systems Review of Systems All systems reviewed & are unremarkable except as noted in HPI and below Constitutional Reports difficulty sleeping, Reports fatigue, Reports fever(s) and Reports weight loss Eyes Reports requires corrective lenses ENT Reports dry mouth Cardiovascular Reports lightheadedness and Reports dyspnea on exertion Respiratory Reports cough and Reports dyspnea on exertion Comments: is a smoker, trying to quit Gastrointestinal Reports constipation, Reports cramping and Reports fecal incontinence Comments: rectal pain that she describes as burning and severe Genitourinary Reports urinary incontinence Musculoskeletal Reports tingling Integumentary/Breasts Reports dry skin Neurologic Reports tingling Psychiatric Reports abnormal sleep pattern and Reports difficulty concentrating Endocrine Reports fatigue Hematologic/Lymphatic Reports easy bleeding and Reports easy bruising PFSH Family History Mother Diabetes Essential hypertension Depression Heart disease Hyperlipidemia Neoplasm Cerebrovascular accident Father Heart disease Myocardial infarction Sister Hyperlipidemia Asthma Grandfather Neoplasm Grandmother Cerebrovascular accident Son Diabetes Asthma Daughter Anxiety Heart disease Medical History Anal cancer (Chronic) Anemia (Chronic) SVT (supraventricular tachycardia) (Acute) Hypothyroidism (Chronic 07/07/12) Hyperlipidemia (Chronic) Gastroesophageal reflux disease (Chronic) Essential hypertension (Chronic 01/02/13) Diabetes mellitus (Chronic 07/07/12) Diabetes Female infertility GERD (gastroesophageal reflux disease) Hyperlipidemia Hypertension Hypothyroidism Obesity (BMI 30-39.9) Varicose veins of both lower extremities Social History household members: none 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 pets and animals: Yes pets and animals: cat(s) frequency: 3-4 times per week duration: 45-60 minutes/day Smoking/Tobacco Use Status: Current every day tobacco type: cigarettes alcohol intake: never substance use type: does not use cari/sikh: Mormon special cari needs: No seatbelt use: always Surgical History Cervical Procedure (~1989) Endometrial Biopsy (~2002) Ligation of fallopian tube Exam Const General: cooperative, well developed and ill appearing Nutritional Appearance: overweight Orientation: alert, awake, oriented to person, oriented to place and confused (intermittently, gets lost in some sentences, but overall not bad, mild confusion) HENMT Head: normocephalic Ears: hearing grossly normal bilaterally Teeth and gingiva: dentures and edentulous Eyes Conjunctivae: conjunctivae normal Sclera: sclerae normal Neck Neck: no lymphadenopathy and other (has central line in place) Resp Effort & Inspection: normal respiratory effort and able to speak in complete sentences Auscultation: clear to auscultation bilaterally and diminished lung sounds Cardio Jugular venous pressure: no JVD Rate: regular rate Heart Sounds: murmur GI Inspection: obesity Palpation: soft Auscultation: normal bowel sounds Neuro Cognition: normal cognition Speech: speech normal Psych Affect: normal affect Attitude: cooperative Thought Process: normal Thought Content: normal Insight: fair Judgment: fair Results Labs : 12/06/17 06:20 12/06/17 06:20 Laboratory Results - last 24 hr 12/06/17 12/06/17 06:20 06:20 WBC 10.68 D RBC 2.81 L Hgb 7.4 L Hct 24.0 L MCV 85.4 MCH 26.3 L MCHC 30.8 L RDW 17.5 H Plt Count 480 H MPV 8.4 Immature Gran % 0.0 Neutrophils % 89.0 Lymphocytes % 9.0 Monocytes % 2.0 Eosinophils % 0.0 Basophils % 0.0 Absolute Neutrophils 9.51 H Absolute Lymphocytes 0.96 L Absolute Monocytes 0.21 Absolute Eosinophils 0.00 Absolute Basophils 0.00 Differential Comment Manual differential RBC Morphology See below Hypochromasia 2+ Poikilocytosis 1+ Sodium 129 L Potassium 4.4 Chloride 99 Carbon Dioxide 18.9 L Anion Gap 11.1 H BUN 21 H D Creatinine 1.33 H Estimated GFR/1.73 m2 40.17 Glucose 278 H Calcium 7.8 L Magnesium 1.7 L Total Bilirubin 0.3 AST 33 ALT 27 Alkaline Phosphatase 135 H Total Protein 5.8 L Albumin 1.3 L
--- NOTE | 2017-12-06 15:49 | PCNE_ITS ---
Date of service: 12/06/17 Time of Service: 10:35 History of Present Illness Chief Complaint: newly diagnosed rectal ca; urosepsis; GOC; AD Narrative: Sherry is a 62 yo woman who was having several months of constipation this summer. She had never had a colonoscopy. She asked her PCP to refer her for colonoscopy. She ws losing weight and very fatigued. She felt something might be wrong. She was working FT at [employer]. On colonoscopy, she was found to have a large partially obstructing rectal mass. She had no bleeding. She lost 20 lbs in 3 lbs. Her cancer worked revied a T3N0M0 potentially curable rectal adenocarinoma. She was recently started on chemo and radiation. She tells me she had both an infusion and a chemo pill as well as radiation this week, her first week of treatment. She adds that she went to the ER earlier this week with pain from her cancer. Then, 2 days later, after her second day of treatment, she developed a fever. She returned to the ER where she was diagnosed with urosepsis. She continues on IV antibiotics as well as pressors in the ICU. Hospitalist Parviz Hendrickson MD is trying to wean her off of them. When I was seeing her, her sister Butch, friend Judy, and physician primary care sports medicine Rebecca Jacob RN were present. We talked about goals of care and filled out most of the Advanced Directives after discussion of Sherry's wishes. Sherry's daughter Nila is her primary DPOA and her sister Butch is her secondary. She wants to get strong enough that she can continue her cancer treatments. Her is already a resident at [facility] due to severe vascular disease and dementia. She doesn't feel safe going home alone, given the 2 ER visits and now ICU admission of this past week. She has already begun discussing Acute Rehab at discharge for the next 4-6 weeks. Consults Consult date: 12/06/17 Requesting physician: Parviz Hendrickson Assessment and Plan (1) Sepsis: Start date: 12/04/17 Current visit: Yes Status: Acute Recovering well from her sepsis overall though still on pressors. Trying to wean her off. Immune system down from radiation and chemo. (2) Anal cancer: Start date: 10/09/17 Current visit: Yes Status: Chronic Just started cancer-directed treatment. Had a hard time this week. Not sure if oncology will want to drop her dosing or change her regimen due to this admission. Will follow with them next week when she is discharged. Still having burning in anus. Pain improved with addition of fentanyl patch, but still having some mental fog with IV morphine. Received a dose during my visit and she was less alert briefly. She says morphine helps with her burning pain of her anus. Would consider gabapentin if morphine continues to make her mentally foggy, (3) Smoker: Current visit: Yes Status: Acute We discussed importance of her quitting to help her benefit the most from chemo and radiation. However, all her family and friends smoke. Asked those present if they would help her quit by not smoking around her. They will, they said. Not highly motivated to quit yet. Currently not having any cravings. Usually smokes 1 ppd x 50 years (sometimes more). Says she smokes because she enjoys it. (4) Goals of care, counseling/discussion: Start date: 12/06/17 Current visit: Yes Status: Acute We reviewed her Advanced Directives. She wants to continue as a FULL CODE. She would accept up to 3 days on a vent. Her sister and friend were present for this conversation. She would NOT want a feeding tube. She would accept IVF and perhaps TPN. She would like to return to her own home when she is safe and stable. Her will likely never return from the SNF. She cannot care for him now. He has dementia and end-stage PVD. She will work with her HR at [facility] about disability, when to return to work , etc. She is considering early longterm and collection of SS. Not sure what she will do. Will need GEOPHYSICS PROFESSOR services at discharge. (5) Advanced directives, counseling/discussion: Start date: 12/06/17 Current visit: Yes Status: Acute see above (6) Cancer related pain: Start date: 12/06/17 Current visit: Yes Status: Acute Has fentanyl patch in place with good results for overall pain. Agree with Dr. Hendrickson that this is the right medication. Will need at discharge. She prefers morphine for BTP and for burning of her anus. If this makes her too groggy, try gabapentin. Review of Systems Review of Systems All systems reviewed & are unremarkable except as noted in HPI and below Constitutional Reports difficulty sleeping, Reports fatigue, Reports fever(s) and Reports weight loss Eyes Reports requires corrective lenses ENT Reports dry mouth Cardiovascular Reports lightheadedness and Reports dyspnea on exertion Respiratory Reports cough and Reports dyspnea on exertion Comments: is a smoker, trying to quit Gastrointestinal Reports constipation, Reports cramping and Reports fecal incontinence Comments: rectal pain that she describes as burning and severe Genitourinary Reports urinary incontinence Musculoskeletal Reports tingling Integumentary/Breasts Reports dry skin Neurologic Reports tingling Psychiatric Reports abnormal sleep pattern and Reports difficulty concentrating Endocrine Reports fatigue Hematologic/Lymphatic Reports easy bleeding and Reports easy bruising PFSH Family History Mother Diabetes Essential hypertension Depression Heart disease Hyperlipidemia Neoplasm Cerebrovascular accident Father Heart disease Myocardial infarction Sister Hyperlipidemia Asthma Grandfather Neoplasm Grandmother Cerebrovascular accident Son Diabetes Asthma Daughter Anxiety Heart disease Medical History Anal cancer (Chronic) Anemia (Chronic) SVT (supraventricular tachycardia) (Acute) Hypothyroidism (Chronic 07/07/12) Hyperlipidemia (Chronic) Gastroesophageal reflux disease (Chronic) Essential hypertension (Chronic 01/02/13) Diabetes mellitus (Chronic 07/07/12) Diabetes Female infertility GERD (gastroesophageal reflux disease) Hyperlipidemia Hypertension Hypothyroidism Obesity (BMI 30-39.9) Varicose veins of both lower extremities Social History household members: none 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 pets and animals: Yes pets and animals: cat(s) frequency: 3-4 times per week duration: 45-60 minutes/day Smoking/Tobacco Use Status: Current every day tobacco type: cigarettes alcohol intake: never substance use type: does not use cari/restoration: Moravian special cari needs: No seatbelt use: always Surgical History Cervical Procedure (~1989) Endometrial Biopsy (~2002) Ligation of fallopian tube Exam Const General: cooperative, well developed and ill appearing Nutritional Appearance: overweight Orientation: alert, awake, oriented to person, oriented to place and confused ( intermittently, gets lost in some sentences, but overall not bad, mild confusion ) HENMT Head: normocephalic Ears: hearing grossly normal bilaterally Teeth and gingiva: dentures and edentulous Eyes Conjunctivae: conjunctivae normal Sclera: sclerae normal Neck Neck: no lymphadenopathy and other (has central line in place) Resp Effort & Inspection: normal respiratory effort and able to speak in complete sentences Auscultation: clear to auscultation bilaterally and diminished lung sounds Cardio Jugular venous pressure: no JVD Rate: regular rate Heart Sounds: murmur GI Inspection: obesity Palpation: soft Auscultation: normal bowel sounds Neuro Cognition: normal cognition Speech: speech normal Psych Affect: normal affect Attitude: cooperative Thought Process: normal Thought Content: normal Insight: fair Judgment: fair Results Labs : 12/06/17 06:20 12/06/17 06:20 Laboratory Results - last 24 hr 12/06/17 12/06/17 06:20 06:20 WBC 10.68 D RBC 2.81 L Hgb 7.4 L Hct 24.0 L MCV 85.4 MCH 26.3 L MCHC 30.8 L RDW 17.5 H Plt Count 480 H MPV 8.4 Immature Gran % 0.0 Neutrophils % 89.0 Lymphocytes % 9.0 Monocytes % 2.0 Eosinophils % 0.0 Basophils % 0.0 Absolute Neutrophils 9.51 H Absolute Lymphocytes 0.96 L Absolute Monocytes 0.21 Absolute Eosinophils 0.00 Absolute Basophils 0.00 Differential Comment Manual differential RBC Morphology See below Hypochromasia 2+ Poikilocytosis 1+ Sodium 129 L Potassium 4.4 Chloride 99 Carbon Dioxide 18.9 L Anion Gap 11.1 H BUN 21 H D Creatinine 1.33 H Estimated GFR/1.73 m2 40.17 Glucose 278 H Calcium 7.8 L Magnesium 1.7 L Total Bilirubin 0.3 AST 33 ALT 27 Alkaline Phosphatase 135 H Total Protein 5.8 L Albumin 1.3 L
[2017-12-06] MEDS: ACETAMINOPHEN 1,000 MG/100 ML BTL 400 MG IVPB (18:45)
[2017-12-06] MEDS: Simvastatin 10 MG TAB PO (20:33)
[2017-12-07] VITALS (65 sets, daily range): BP systolic 74–115; BP diastolic 36–90; PULSE 70–94; RESP 12–25; TEMP 36–36.7; O2SAT 92–98
[2017-12-07] MEDS: Normal Saline 1,000 ML 200 ML IV ×3 (02:22→17:30)
[2017-12-07 06:43] LABS: ALT 25 U/L (12-78); AST 43 U/L (15-37); Albumin 1.2 g/dL (3.4-5.0); Alkaline Phosphatase 123 U/L (46-116); BUN 18 mg/dL (7-18); Bilirubin, Total 0.4 mg/dL (0.2-1.0); CREATININE 1.35 mg/dL (0.55-1.02); Calcium 7.6 mg/dL (8.5-10.1); Chloride 103 mmol/L (98-107); Estimated GFR 39.48 (mL/min/1.73m2); Glucose 142 mg/dL (70-100); Magnesium 1.6 mg/dL (1.8-2.4); Potassium 4.3 mmol/L (3.5-5.1); Sodium 133 mmol/L (136-145); Total Protein 5.4 g/dL (6.4-8.2)
[2017-12-07] MEDS: Heparin 5,000 UNITS/ML VIAL 5000 UNITS SC ×3 (06:52→21:11)
[2017-12-07] MEDS: Normal Saline Flush 10 ML SYR IVP (08:09)
[2017-12-07] MEDS: Aspirin E.C. 81 MG TABEC PO (08:09)
[2017-12-07] MEDS: Pantoprazole 40 MG VIAL IVP (08:09)
[2017-12-07] MEDS: ACETAMINOPHEN 1,000 MG/100 ML BTL 400 MG IVPB (08:27)
[2017-12-07] MEDS: Insulin Aspart 300 UNITS/3 ML PEN SC ×2 (10:16→12:26)
[2017-12-07 11:41] LABS: Abs Immature Grans 0.31 k/cumm (0.0-0.09); HCT 21.2 % (36.0-46.0); Mean Corp. HGB Concentration 30.7 g/dL (32.0-36.0); Mean Corpuscular Hemoglobin 26.7 pg (27.0-33.0); Mean Corpuscular Volume 87.2 fL (80-95); Mean Platelet Volume 8.1 fL (8.0-11.0); Platelet Count 342 x1000/uL (130-400); RBC 2.43 m/cumm (4.00-5.20); RBC Distribution Width 17.8 % (11.7-14.6); White Blood Cell Count 4.92 k/cumm (4.4-10.8)
[2017-12-07 12:16] LABS: HGB 6.5 g/dL (12.0-15.5)
[2017-12-07 12:17] LABS: Absolute Lymphocyte Count 0.44 k/cumm (1.2-3.4); Absolute Neutrophil Count 4.18 k/cumm (1.2-6.7)
[2017-12-07 12:18] LABS: Diff Comment Manual Differential; Hypochromasia 2+; Microcytosis 2+
--- NOTE | 2017-12-07 12:39 | PDOC.CMPRO ---
- If Service Date Differs Date of service: 12/07/17 Time of Service: 12:39 Care Management Progress Note S/O: Sherry is lying in bed with , Meng, and sister in law, Edith, at bedside when CM visits. She is engaged in conversation and tears up on occasion while talking with CM. She denies physical pain but reports that she has mental pain at the moment. Her , Meng resides at [facility] (IV ab[facility]) and Sherry would like to transfer there for rehab when she leaves the hospital. She is currently awaiting a bed offer but reports that the Rehab is holding a bed for her in the same room as Meng. CM will continue to follow. A:Sherry is a 62 year female admitted with sepsis with a recent diagnosis of anal cancer P: Sherry continues to receive care in the ICU. She is receiving IV antibiotics, has a central line in place, and continues to receive IV fluids. Anticipate plan will be for her to transition [facility] pending bed offer and insurance approval. CM spoke with admission coordinator who will confirm with CM when information available. CM to continue to provide support to patient, family and care team regarding ongoing discharge planning and disposition.
--- NOTE | 2017-12-07 12:44 | CMPROGNOTE_ITS ---
- If Service Date Differs Date of service: 12/07/17 Time of Service: 12:39 Care Management Progress Note S/O: Sherry is lying in bed with , Meng, and sister in law, Edith, at bedside when CM visits. She is engaged in conversation and tears up on occasion while talking with CM. She denies physical pain but reports that she has mental pain at the moment. Her , Meng resides at [facility] (IV ab[facility]) and Sherry would like to transfer there for rehab when she leaves the hospital. She is currently awaiting a bed offer but reports that the Rehab is holding a bed for her in the same room as Meng. CM will continue to follow. A:Sherry is a 62 year female admitted with sepsis with a recent diagnosis of anal cancer P: Sherry continues to receive care in the ICU. She is receiving IV antibiotics , has a central line in place, and continues to receive IV fluids. Anticipate plan will be for her to transition [facility] pending bed offer and insurance approval. CM spoke with admission coordinator who will confirm with CM when information available. CM to continue to provide support to patient, family and care team regarding ongoing discharge planning and disposition.
[2017-12-07] MEDS: Acetaminophen 325 MG TAB 650 MG PO ×2 (17:37→22:50)
--- NOTE | 2017-12-07 18:42 | W.PM.PROGNOT ---
Assessment and Plan (1) Cancer related pain: Current visit: Yes Status: Acute Continues with rectal pain. She is getting MS IR and acetaminophen. Appears to be adequately controlled (2) Anal cancer: Current visit: Yes Status: Chronic In active treatment with chemotherapy and radiation therapy. His could be the cause of her anemia. We will check a reticulocyte count for bone marrow activity. We will need to transfuse 2 more units of packed red cells. (3) Acute kidney failure: Current visit: Yes Status: Acute Creatinine stable at 1.35. Continue to monitor urinary output. (4) Anemia: Current visit: Yes Status: Chronic No acute source of blood loss apparent. I suspect this is a bone marrow related problem. This will be her third unit of packed red cells. Recheck counts again in the a.m. Monitor for acute blood loss. We are presuming this is the cause of some of her low blood pressures. (5) Shock circulatory: Current visit: Yes Status: Acute (6) UTI (urinary tract infection): Current visit: Yes Status: Acute Acute circulatory shock secondary to urinary tract infection. Continue IV Zosyn. Subjective Interval history since last seen: Patient is overall feeling a bit better. She was able to be weaned off of the levo fed last night. Blood pressures have continued to be somewhat soft. There is no signs of active GI blood loss. She continues to have a fair amount of rectal pain and discomfort, receiving MS IR and IV acetaminophen. Exam Narrative Exam Narrative: On exam she overall looks comfortable, she is alert and oriented. She had no respiratory difficulty. Her lung sounds were clear and dry on the right and left. Her heart sounds were strong and regular. No significant murmur. Abdomen is quite markedly obese but soft and nontender. No masses were palpable. The rectal area had a lot of white cream in that region. There were rectal tags present and some vulvar protrudence. No bleeding or friability was observed. Objective Objective Clinical Data: Abnormal lab results 12/06/17 12/07/17 12/07/17 Range/Units 16:40 05:50 11:24 RBC 2.43 L (4.00-5.20) m/cumm Hgb 6.5 L* (12.0-15.5) g/dL Hct 21.2 L (36.0-46.0) % MCH 26.7 L (27.0-33.0) pg MCHC 30.7 L (32.0-36.0) g/dL RDW 17.8 H (11.7-14.6) % Absolute Lymphocytes 0.44 L (1.2-3.4) k/cumm Sodium 133 L (136-145) mmol/L Carbon Dioxide 19.0 L (21.0-32.0) mmol/L Creatinine 1.35 H (0.55-1.02) mg/dL Glucose 142 H D (70-100) mg/dL Calcium 7.6 L (8.5-10.1) mg/dL Magnesium 1.6 L (1.8-2.4) mg/dL AST 43 H (15-37) U/L Alkaline Phosphatase 123 H (46-116) U/L Total Protein 5.4 L (6.4-8.2) g/dL Albumin 1.2 L (3.4-5.0) g/dL Crossmatch See Detail Vital Signs Temperature 36.1 C L 12/07/17 16:03 Temperature Source Temporal Artery Scan 12/07/17 12:11 Pulse 72 12/07/17 16:46 Pulse 73 12/07/17 16:46 Respiratory Rate 13 12/07/17 16:46 Respiratory Effort Non-Labored 12/07/17 03:35 Respiratory Depth Normal 12/07/17 03:35 Respiratory Pattern Normal 12/07/17 03:35 Blood Pressure 105/57 L 12/07/17 16:46 Blood Pressure Mean 69 12/07/17 16:46 Blood Pressure Position Left Lateral 12/06/17 20:00 Pulse Oximetry 97 12/07/17 16:46 Oxygen Delivery Method Room Air 12/07/17 16:03 Oxygen Flow Rate 0 12/07/17 16:03 Pain Level 5 12/07/17 17:37 Intake & Output 12/06/17 12/07/17 12/07/17 23:59 11:59 23:59 Intake Total 3168.868 / 3168.868 2400 / 2400 726.667 / 726.667 Output Total 2400 / 2400 225 / 225 Balance 768.868 / 532.232 7995 / 2400 501.667 / 501.667 Intake: IV 2328.868 / 2328.868 2300 / 2300 26.667 / 26.667 Oral 840 / 840 100 / 100 300 / 300 Blood Product 300 / 300 Rbc Leuko Reduced Unit 300 / 300 [id number] Other 100 / 100 Rbc Leuko Reduced Unit 100 / 100 [id number] Output: Urine 2400 / 2400 225 / 225 Other: Urine Color Yellow Yellow Urine Appearance Clear Clear Urine Odor None Normal Comment mixed with soft brown stool mixed with soft brown stool Voiding Methods Bedside Commode Bedside Commode Laboratory Results WBC 4.92 k/cumm (4.4-10.8) 12/07/17 11:24 RBC 2.43 m/cumm (4.00-5.20) L 12/07/17 11:24 Hgb 6.5 g/dL (12.0-15.5) L* 12/07/17 11:24 Hct 21.2 % (36.0-46.0) L 12/07/17 11:24 MCV 87.2 fL (80-95) 12/07/17 11:24 MCH 26.7 pg (27.0-33.0) L 12/07/17 11:24 MCHC 30.7 g/dL (32.0-36.0) L 12/07/17 11:24 RDW 17.8 % (11.7-14.6) H 12/07/17 11:24 Plt Count 342 x1000/uL (130-400) D 12/07/17 11:24 MPV 8.1 fL (8.0-11.0) 12/07/17 11:24 Immature Gran % See Differential 12/07/17 11:24 Neutrophils % 83.0 12/07/17 11:24 Lymphocytes % 9.0 12/07/17 11:24 Monocytes % 6.0 12/07/17 11:24 Eosinophils % 0.0 12/07/17 11:24 Basophils % 0.0 12/07/17 11:24 Absolute Neutrophils 4.18 k/cumm (1.2-6.7) 12/07/17 11:24 Band Neutrophils 2.0 % 12/07/17 11:24 Absolute Lymphocytes 0.44 k/cumm (1.2-3.4) L 12/07/17 11:24 Absolute Monocytes 0.30 k/cumm (0.11-0.7) 12/07/17 11:24 Absolute Eosinophils 0.00 k/cumm (0.0-0.7) 12/07/17 11:24 Absolute Basophils 0.00 k/cumm (0.0-0.2) 12/07/17 11:24 Differential Comment Manual differential 12/07/17 11:24 Atypical Lymphocytes 0 12/04/17 16:00 RBC Morphology See below 12/07/17 11:24 Polychromasia Present 12/04/17 16:00 Hypochromasia 2+ 12/07/17 11:24 Poikilocytosis 1+ 12/06/17 06:20 Basophilic Stippling Present 12/04/17 16:00 Microcytosis 2+ 12/07/17 11:24 Macrocytosis 1+ 12/04/17 16:00 Sodium 133 mmol/L (136-145) L 12/07/17 05:50 Potassium 4.3 mmol/L (3.5-5.1) 12/07/17 05:50 Chloride 103 mmol/L (98-107) 12/07/17 05:50 Carbon Dioxide 19.0 mmol/L (21.0-32.0) L 12/07/17 05:50 Anion Gap 11.0 mmol/L (3-11) 12/07/17 05:50 BUN 18 mg/dL (7-18) 12/07/17 05:50 Creatinine 1.35 mg/dL (0.55-1.02) H 12/07/17 05:50 Estimated GFR/1.73 m2 39.48 (mL/min/1.73m2) 12/07/17 05:50 Glucose 142 mg/dL (70-100) H D 12/07/17 05:50 Lactate 0.9 mmol/L (0.6-1.4) 12/05/17 08:25 Calcium 7.6 mg/dL (8.5-10.1) L 12/07/17 05:50 Magnesium 1.6 mg/dL (1.8-2.4) L 12/07/17 05:50 Total Bilirubin 0.4 mg/dL (0.2-1.0) 12/07/17 05:50 AST 43 U/L (15-37) H 12/07/17 05:50 ALT 25 U/L (12-78) 12/07/17 05:50 Alkaline Phosphatase 123 U/L (46-116) H 12/07/17 05:50 Troponin I < 0.02 ng/mL (0.00-0.06) 12/04/17 16:00 Total Protein 5.4 g/dL (6.4-8.2) L 12/07/17 05:50 Albumin 1.2 g/dL (3.4-5.0) L 12/07/17 05:50 TSH 1.68 uIU/mL (0.358-3.74) 12/04/17 18:00 Urine Color Yellow (Yellow) 12/04/17 16:50 Urine Clarity Cloudy 12/04/17 16:50 Urine pH 6.0 (5-8) 12/04/17 16:50 Ur Specific [place] 1.010 (1.005-1.025) 12/04/17 16:50 Urine Protein 100 mg/dL (Negative) H 12/04/17 16:50 Urine Ketones Negative mg/dL (Negative) 12/04/17 16:50 Urine Blood Moderate (Negative) H 12/04/17 16:50 Urine Nitrite Negative (Negative) 12/04/17 16:50 Urine Bilirubin Small (Negative) H 12/04/17 16:50 Urine Urobilinogen 1.0 EU/dL (Up TO 0.2) H 12/04/17 16:50 Ur Leukocyte Esterase Large (Negative) H 12/04/17 16:50 Urine RBC >50 (0-2) H 12/04/17 16:50 Urine WBC >50 HPF (0-5) 12/04/17 16:50 Ur Epithelial Cells Few HPF (Negative) 12/04/17 16:50 Urine Crystals Negative HPF (Negative) 12/04/17 16:50 Urine Bacteria Many HPF (Negative) 12/04/17 16:50 Urine Casts Negative LPF (Negative) 12/04/17 16:50 Urine Mucus Heavy (Negative) 12/04/17 16:50 Urine Other Negative (Negative) 12/04/17 16:50 Ur Culture Indicated? Yes 12/04/17 16:50 Urine Glucose Negative mg/dL (Negative) 12/04/17 16:50 Patient ABO/Rh O Positive 12/06/17 16:40 Antibody Screen Negative 12/06/17 16:40 Crossmatch See Detail 12/06/17 16:40
[2017-12-07] MEDS: Magnesium Oxide 400 MG TAB PO (19:42)
[2017-12-07] MEDS: Simvastatin 10 MG TAB PO (21:11)
[2017-12-07] MEDS: Normal Saline 500 ML 30 ML IV (22:30)
[2017-12-07] MEDS: diphenhydrAMINE 25 MG CAP PO (22:50)
[2017-12-08] VITALS (39 sets, daily range): BP systolic 78–122; BP diastolic 35–73; PULSE 71–97; RESP 12–26; TEMP 36.5–36.7; O2SAT 91–96
[2017-12-08] MEDS: Normal Saline 1,000 ML 200 ML IV ×2 (03:14→09:26)
[2017-12-08] MEDS: Heparin 5,000 UNITS/ML VIAL 5000 UNITS SC ×3 (05:09→21:22)
[2017-12-08 07:42] LABS: Abs Immature Grans 0.26 k/cumm (0.0-0.09); Absolute Basophil Count 0.01 k/cumm (0.0-0.2); Absolute Eosinophil Count 0.03 k/cumm (0.0-0.7); Absolute Lymphocyte Count 0.46 k/cumm (1.2-3.4); Absolute Monocyte Count 0.18 k/cumm (0.11-0.7); Absolute Neutrophil Count 3.11 k/cumm (1.2-6.7); Basophils % 0.2; Eosinophils % 0.7; HCT 27.1 % (36.0-46.0); HGB 8.4 g/dL (12.0-15.5); Immature Grans % 6.4; Lymphocytes % 11.4; Mean Corpuscular Hemoglobin 27.1 pg (27.0-33.0); Mean Corpuscular Volume 87.4 fL (80-95); Mean Platelet Volume 8.4 fL (8.0-11.0); Monocytes % 4.4; Neutrophils % 76.9; Platelet Count 351 x1000/uL (130-400); RBC Distribution Width 17.3 % (11.7-14.6); White Blood Cell Count 4.05 k/cumm (4.4-10.8)
[2017-12-08 07:53] LABS: Anion Gap 9.7 mmol/L (3-11); BUN 17 mg/dL (7-18); CO2 20.3 mmol/L (21.0-32.0); CREATININE 1.17 mg/dL (0.55-1.02); Calcium 7.8 mg/dL (8.5-10.1); Chloride 107 mmol/L (98-107); Estimated GFR 46.57 (mL/min/1.73m2); Glucose 128 mg/dL (70-100); Potassium 4.2 mmol/L (3.5-5.1); Sodium 137 mmol/L (136-145)
[2017-12-08] MEDS: Pantoprazole 40 MG VIAL IVP (08:19)
[2017-12-08] MEDS: Aspirin E.C. 81 MG TABEC PO (08:20)
[2017-12-08] MEDS: Normal Saline Flush 10 ML SYR IVP (08:20)
[2017-12-08] MEDS: Magnesium Oxide 400 MG TAB PO ×2 (08:20→20:21)
[2017-12-08] MEDS: Ondansetron O.D.T. 4 MG TABEF PO (09:18)
--- NOTE | 2017-12-08 11:14 | PDOC.CMPRO ---
- If Service Date Differs Date of service: 12/08/17 Time of Service: 11:14 Care Management Progress Note S/O: Sherry is her chair in ICU when CM visits. She is engaged in conversation and reports that she is feeling better than she did yesterday though she is tired. Sherry's , Meng, resides at [facility] (IV abx until mid-December) and Sherry would like to transfer there for rehab when she leaves the hospital. She reports that she does not feel that she can go home and care for herself upon discharge. CM will continue to follow. A:Sherry is a 62 year female admitted with sepsis with a recent diagnosis of anal cancer P: Sherry continues to receive care in the ICU. She is receiving IV antibiotics, has a central line in place, and continues to receive IV fluids. Anticipate plan will be for her to transition [facility] pending bed offer and insurance approval. CM spoke with admission coordinator who will confirm with CM when information available. CM to continue to provide support to patient, family and care team regarding ongoing discharge planning and disposition.
--- NOTE | 2017-12-08 11:17 | CMPROGNOTE_ITS ---
- If Service Date Differs Date of service: 12/08/17 Time of Service: 11:14 Care Management Progress Note S/O: Sherry is her chair in ICU when CM visits. She is engaged in conversation and reports that she is feeling better than she did yesterday though she is tired. Sherry's , Meng, resides at [facility] (IV abx until mid-December ) and Sherry would like to transfer there for rehab when she leaves the hospital. She reports that she does not feel that she can go home and care for herself upon discharge. CM will continue to follow. A:Sherry is a 62 year female admitted with sepsis with a recent diagnosis of anal cancer P: Sherry continues to receive care in the ICU. She is receiving IV antibiotics , has a central line in place, and continues to receive IV fluids. Anticipate plan will be for her to transition to [facility] pending bed offer and insurance approval. CM spoke with admission coordinator who will confirm with CM when information available. CM to continue to provide support to patient, family and care team regarding ongoing discharge planning and disposition.
[2017-12-08] MEDS: Insulin Aspart 300 UNITS/3 ML PEN SC (17:43)
--- NOTE | 2017-12-08 18:17 | PGE_ITS ---
Assessment and Plan (1) UTI (urinary tract infection): Current visit: Yes Status: Acute Urine is growing out E. coli that is resistant to fluoroquinolones. She is on IV Zosyn. She is now normalized her white count and has had no fevers. Will DC Zosyn at after tonight's dose. Start Keflex 500 mg 3 times daily beginning in the a.m. (2) Cancer related pain: Current visit: Yes Status: Acute Her rectal pain has increased. She is tolerating the MSIR 15 mg every 2 hours as needed. She has a special pillow that she is sitting on. (3) Shock circulatory: Current visit: Yes Status: Acute Her blood pressures have stabilized. She got 2 units of red cells overnight which seems to help her overall blood pressure. I think it is helping her overall strength as well. The infectious process has been well treated. Switching to p.o. antibiotics. Cut back her IV fluids from 200 cc an hour to 125 cc an hour. (4) Anemia: Current visit: Yes Status: Chronic Her anemia is stable. Hemoglobin came back at 8.4 after 2 units. There is no evidence of ongoing acute blood loss. This is all likely related to her rectal cancer and recent chemotherapy. Subjective Interval history since last seen: Patient overall is feeling quite a bit better. She sitting up in the chair. She does feel as if her legs are weak. No chest pain. No fever chills or Reiger's. She did have more rectal pain overnight and had her MS IR increased to every 2 hours as needed. Exam Narrative Exam Narrative: Patient is sitting up in the chair. Affect is quite bright and alert. Sensorium is clear. Her lung sounds are clear bilaterally. Her heart is regular and there is no significant murmur. Abdomen is quite markedly obese but soft and nontender. Lower extremities no significant edema. Objective Objective Clinical Data: Abnormal lab results 12/06/17 12/08/17 12/08/17 Range/Units 16:40 06:45 06:45 WBC 4.05 L (4.4-10.8) k/cumm RBC 3.10 L (4.00-5.20) m/cumm Hgb 8.4 L (12.0-15.5) g/dL Hct 27.1 L D (36.0-46.0) % MCHC 31.0 L (32.0-36.0) g/dL RDW 17.3 H (11.7-14.6) % Absolute Lymphocytes 0.46 L (1.2-3.4) k/cumm Carbon Dioxide 20.3 L (21.0-32.0) mmol/L Creatinine 1.17 H (0.55-1.02) mg/dL Glucose 128 H (70-100) mg/dL Calcium 7.8 L (8.5-10.1) mg/dL Crossmatch See Detail Vital Signs Temperature 36.6 C 12/08/17 03:15 Temperature Source Temporal Artery Scan 12/08/17 03:15 Pulse 75 12/08/17 12:31 Pulse 76 12/08/17 12:31 Respiratory Rate 14 12/08/17 12:31 Respiratory Effort Non-Labored 12/08/17 08:00 Respiratory Depth Normal 12/08/17 08:00 Respiratory Pattern Normal 12/08/17 08:00 Blood Pressure 108/58 L 12/08/17 12:31 Blood Pressure Mean 71 12/08/17 12:31 Blood Pressure Position Left Lateral 12/08/17 03:15 Pulse Oximetry 93 L 12/08/17 06:31 Oxygen Delivery Method Room Air 12/08/17 03:15 Oxygen Flow Rate 0 12/08/17 03:15 Pain Level 4 12/08/17 15:29 Intake & Output 12/07/17 12/08/17 12/08/17 23:59 11:59 23:59 Intake Total 1800.000 / 1800.000 740.333 / 740.333 Output Total 1475 / 1475 1100 / 1100 1500 / 1500 Balance 325.000 / 325.000 -359.667 / -359.667 -1500 / -1500 Weight 97 kg Intake: IV 1100.000 / 1100.000 213.333 / 213.333 Oral 300 / 300 240 / 240 Blood Product 300 / 300 271 / 271 Rbc Leuko Reduced Unit 300 / 300 [id number] Rbc Leuko Reduced Unit 271 / 271 [id number] Other 100 / 100 16 16 Rbc Leuko Reduced Unit 100 / 100 [id number] Rbc Leuko Reduced Unit 16 [id number] Output: Urine 1275 / 1275 1050 / 1050 1500 / 1500 Stool 200 / 200 Emesis 50 / 50 Other: Urine Color Yellow Yellow Yellow Urine Appearance Clear Clear Clear Urine Odor Normal Normal Normal Comment Oliver has had frequent voids throught the day today--voids have been anywhere from 225cc to 400cc per time. Patient also has small amount of loose stool with each void. Periarea cleansed w/each void/BM with LALY applied liberally to affected areas. Oliver has had frequent voids throught the day today--voids have been anywhere from 225cc to 400cc per time. Patient also has small amount of loose stool with each void. Periarea cleansed w/each void/BM with LALY applied liberally to affected areas. All voids were mixed with stool. Stool Occult Blood Negative Negative Stool Size Moderate Moderate Stool Characteristics Soft Soft Soft Liquid Liquid Brown Brown Black Black Emesis Description Undigested Food Voiding Methods Bedside Commode Bedside Commode Bedside Commode Laboratory Results WBC 4.05 k/cumm (4.4-10.8) L 12/08/17 06:45 RBC 3.10 m/cumm (4.00-5.20) L 12/08/17 06:45 Hgb 8.4 g/dL (12.0-15.5) L 12/08/17 06:45 Hct 27.1 % (36.0-46.0) L D 12/08/17 06:45 MCV 87.4 fL (80-95) 12/08/17 06:45 MCH 27.1 pg (27.0-33.0) 12/08/17 06:45 MCHC 31.0 g/dL (32.0-36.0) L 12/08/17 06:45 RDW 17.3 % (11.7-14.6) H 12/08/17 06:45 Plt Count 351 x1000/uL (130-400) 12/08/17 06:45 MPV 8.4 fL (8.0-11.0) 12/08/17 06:45 Immature Gran % 6.4 12/08/17 06:45 Neutrophils % 76.9 12/08/17 06:45 Lymphocytes % 11.4 12/08/17 06:45 Monocytes % 4.4 12/08/17 06:45 Eosinophils % 0.7 12/08/17 06:45 Basophils % 0.2 12/08/17 06:45 Absolute Neutrophils 3.11 k/cumm (1.2-6.7) 12/08/17 06:45 Band Neutrophils 2.0 % 12/07/17 11:24 Absolute Lymphocytes 0.46 k/cumm (1.2-3.4) L 12/08/17 06:45 Absolute Monocytes 0.18 k/cumm (0.11-0.7) 12/08/17 06:45 Absolute Eosinophils 0.03 k/cumm (0.0-0.7) 12/08/17 06:45 Absolute Basophils 0.01 k/cumm (0.0-0.2) 12/08/17 06:45 Differential Comment Manual differential 12/07/17 11:24 Atypical Lymphocytes 0 12/04/17 16:00 RBC Morphology See below 12/07/17 11:24 Polychromasia Present 12/04/17 16:00 Hypochromasia 2+ 12/07/17 11:24 Poikilocytosis 1+ 12/06/17 06:20 Basophilic Stippling Present 12/04/17 16:00 Microcytosis 2+ 12/07/17 11:24 Macrocytosis 1+ 12/04/17 16:00 Sodium 137 mmol/L (136-145) 12/08/17 06:45 Potassium 4.2 mmol/L (3.5-5.1) 12/08/17 06:45 Chloride 107 mmol/L (98-107) 12/08/17 06:45 Carbon Dioxide 20.3 mmol/L (21.0-32.0) L 12/08/17 06:45 Anion Gap 9.7 mmol/L (3-11) 12/08/17 06:45 BUN 17 mg/dL (7-18) 12/08/17 06:45 Creatinine 1.17 mg/dL (0.55-1.02) H 12/08/17 06:45 Estimated GFR/1.73 m2 46.57 (mL/min/1.73m2) 12/08/17 06:45 Glucose 128 mg/dL (70-100) H 12/08/17 06:45 Lactate 0.9 mmol/L (0.6-1.4) 12/05/17 08:25 Calcium 7.8 mg/dL (8.5-10.1) L 12/08/17 06:45 Magnesium 1.6 mg/dL (1.8-2.4) L 12/07/17 05:50 Total Bilirubin 0.4 mg/dL (0.2-1.0) 12/07/17 05:50 AST 43 U/L (15-37) H 12/07/17 05:50 ALT 25 U/L (12-78) 12/07/17 05:50 Alkaline Phosphatase 123 U/L (46-116) H 12/07/17 05:50 Troponin I < 0.02 ng/mL (0.00-0.06) 12/04/17 16:00 Total Protein 5.4 g/dL (6.4-8.2) L 12/07/17 05:50 Albumin 1.2 g/dL (3.4-5.0) L 12/07/17 05:50 TSH 1.68 uIU/mL (0.358-3.74) 12/04/17 18:00 Urine Color Yellow (Yellow) 12/04/17 16:50 Urine Clarity Cloudy 12/04/17 16:50 Urine pH 6.0 (5-8) 12/04/17 16:50 Ur Specific [place] 1.010 (1.005-1.025) 12/04/17 16:50 Urine Protein 100 mg/dL (Negative) H 12/04/17 16:50 Urine Ketones Negative mg/dL (Negative) 12/04/17 16:50 Urine Blood Moderate (Negative) H 12/04/17 16:50 Urine Nitrite Negative (Negative) 12/04/17 16:50 Urine Bilirubin Small (Negative) H 12/04/17 16:50 Urine Urobilinogen 1.0 EU/dL (Up TO 0.2) H 12/04/17 16:50 Ur Leukocyte Esterase Large (Negative) H 12/04/17 16:50 Urine RBC >50 (0-2) H 12/04/17 16:50 Urine WBC >50 HPF (0-5) 12/04/17 16:50 Ur Epithelial Cells Few HPF (Negative) 12/04/17 16:50 Urine Crystals Negative HPF (Negative) 12/04/17 16:50 Urine Bacteria Many HPF (Negative) 12/04/17 16:50 Urine Casts Negative LPF (Negative) 12/04/17 16:50 Urine Mucus Heavy (Negative) 12/04/17 16:50 Urine Other Negative (Negative) 12/04/17 16:50 Ur Culture Indicated? Yes 12/04/17 16:50 Urine Glucose Negative mg/dL (Negative) 12/04/17 16:50 Patient ABO/Rh O Positive 12/06/17 16:40 Antibody Screen Negative 12/06/17 16:40 Crossmatch See Detail 12/06/17 16:40
[2017-12-08] MEDS: Simvastatin 10 MG TAB PO (21:22)
[2017-12-08] MEDS: Normal Saline 1,000 ML 125 ML IV (23:52)
[2017-12-09] VITALS (28 sets, daily range): BP systolic 95–145; BP diastolic 42–78; PULSE 83–101; RESP 12–35; TEMP 35.5–36.7; O2SAT 95–97
--- NOTE | 2017-12-09 02:44 | NUR.NOTE ---
Pt has been in a Sinus Rhythm all night,with rates 80 to 90's. AT 0217, Pt had a burst of SVT 133 to 150 lasting one and 1/2 minutes. Pt reports she was sleeping and denies any pain, sob or discomfort after having just converted back into a sinus rhythm. Physical exam is unchanged and unremarkable cardiac assessmet.See mounted strip on Pt's ICU Cardiac Monitoring Record strips.Nursing Note:
[2017-12-09] MEDS: Heparin 5,000 UNITS/ML VIAL 5000 UNITS SC ×3 (06:39→21:16)
[2017-12-09 07:10] LABS: Abs Immature Grans 0.05 k/cumm (0.0-0.09); Absolute Basophil Count 0.01 k/cumm (0.0-0.2); Absolute Eosinophil Count 0.02 k/cumm (0.0-0.7); Absolute Neutrophil Count 2.46 k/cumm (1.2-6.7); Basophils % 0.3; Eosinophils % 0.6; HCT 28.1 % (36.0-46.0); HGB 8.6 g/dL (12.0-15.5); Immature Grans % 1.6; Lymphocytes % 12.7; Mean Corp. HGB Concentration 30.6 g/dL (32.0-36.0); Mean Corpuscular Volume 88.4 fL (80-95); Mean Platelet Volume 8.4 fL (8.0-11.0); Monocytes % 6.4; Neutrophils % 78.4; Platelet Count 328 x1000/uL (130-400); RBC 3.18 m/cumm (4.00-5.20); RBC Distribution Width 17.6 % (11.7-14.6); White Blood Cell Count 3.14 k/cumm (4.4-10.8)
[2017-12-09 07:12] LABS: Anion Gap 9.6 mmol/L (3-11); BUN 13 mg/dL (7-18); CO2 21.4 mmol/L (21.0-32.0); CREATININE 1.11 mg/dL (0.55-1.02); Calcium 7.9 mg/dL (8.5-10.1); Chloride 106 mmol/L (98-107); Estimated GFR 49.49 (mL/min/1.73m2); Glucose 138 mg/dL (70-100); Potassium 3.9 mmol/L (3.5-5.1); Sodium 137 mmol/L (136-145)
[2017-12-09] MEDS: Cephalexin 500 MG CAP PO ×4 (08:23→21:05)
[2017-12-09] MEDS: Aspirin E.C. 81 MG TABEC PO (08:23)
[2017-12-09] MEDS: Magnesium Oxide 400 MG TAB PO ×2 (08:23→21:05)
[2017-12-09] MEDS: Normal Saline 1,000 ML 125 ML IV (08:23)
--- NOTE | 2017-12-09 10:12 | CMPROGNOTE_ITS ---
- If Service Date Differs Date of service: 12/09/17 Time of Service: 10:07 Care Management Progress Note S/O: Sherry continues to receive care in the ICU. She is improving she continues to receive CM spoke with admissions at today [facility] states he is not able to offer a bed until toward the end of the week. CM started the preauthorization forms for [facility] and faxed the forms to [facility] to be completed by admission coordinator. Sherry is in need of short term rehab prior to returning home r/t weakness, prolonged hospital stay and recent diagnosis of rectal cancer and initiation of chemotherapy and radiation treatments. PT completed evaluation and recommend short rehab stay. A:Sherry is a 62 year female admitted with sepsis with a recent diagnosis of anal cancer P:Anticipate no change in status today. She has been transition to oral antibiotics she continues to be cared for in the ICU. Continue monitoring her labs, including hemoglobin. PT is consulting. Anticipate plan will be for her to transition to [facility] pending bed offer and insurance approval. CM to continue to provide support to patient, family and care team regarding ongoing discharge planning and disposition.
[2017-12-09] MEDS: Pantoprazole 40 MG TABCR PO (10:37)
--- NOTE | 2017-12-09 10:59 | PT.INIE ---
Date of service: 12/09/17 Time of Service: 11:00 PT Notes Inpatient Physical Therapy Evaluation Date: 12/09/17 Referring Doctor: Efrem Chao PT Orders: PT CONSULT: rectal CA, complicated UTI with sepsis, severe weakness and loss of ADLS Precautions: Standard precautions Patient Profile/Admitting Diagnosis: Pt is a 62yr old female admitted with septic shock, urinary tract infection in setting of squamous cell carcinoma of the anus PMHX: diabetes mellitus, anemia, supraventricular tachycardia, hypertension, hypothyroidism, gastroesopahgeal reflux disease, varicose veins bilateral lower extremities, hyperlipidemia Social History/Home Situation: Lives alone in a second story apartment, 4 steps with railing to enter building, flight of steps with railing to second floor apartment, no stairs inside apartment. Baseline mobility independent gait with no device, independent with ADLS. Pt's is a resident at [facility] with dementia, pt would like to transfer to this facility prior to return to home setting. Equipment Owned/DME: 's FWW Subjective: Pt sitting on commode, nurse in room assisting with cleaning up. Pt agreeable to PT Consult. Objective: General Observation: telemetry, R UE IV Mental Status: A&O x3 Pain: c/o pain in anus, RN providing pain medication Bed Mobility/Transfers: Sit-stand: SBA with FWW Bed-chair: SBA Stand-sit: SBA Gait: SBA with FWW 80ft, steady step through gait pattern. Pt left up in chair after session completed. Therex: Seated ankle pumps, long arc quads and hip flexion x 20 reps Balance: Static Sitting: normal Dynamic Sitting: normal Static Standing: fair Dynamic Standing: fair Special Tests: Mobility Limitations Standardized Measure [facility] AM-PAC 6 clicks Basic Mobility Inpatient Short Form: Raw Score: 18 Standardized Score: 43.63 CMS Score: 46.58% [facility] Modifier: CK Informed Consent/Education: Patient instructed in purpose of PT consult and plan of care. Assessment: Pt is a 62yr old female admitted with septic shock, urinary tract infection in setting of squamous cell carcinoma of the anus in setting of diabetes mellitus, anemia, supraventricular tachycardia. Patient presents with the following impairment level findings: weakness and decreased strength with bed mobility, standing transfers and gait with FWW due to recent hospital immobility, requiring FWW for gait stability to prevent falls, decreased static and dynamic standing balance. Pt's baseline mobility is independent, she will benefit from short term skilled therapy intervention for strengthening and progressive transfer, gait and stair training to assist return to prior level of function. Pt needs to be able to do a flight of steps to return to home setting. She is hoping for rehab stay prior to return to home independent. She would benefit from OT consult in hospital to assess for independence with ADLS. Impairments are contributing to the following functional limitations: AMPAC score CMS Score: 46.58% Patient is assessed as a Moderate [id number] complexity based on the following: History: see above Examination: see above Presentation: evolving Decision Making: AMPAC score CMS Score: 46.58% Goals: Goals X1 week 1. Supine-Sit independent 2. Sit-Supine independent 3. Sit-Stand supervision 4. Stand-Sit supervision 5. Bed-Chair SBA no device 6. Chair-Bed SBA no device 7. Gait SBA no device [id number] 8. Stairs up/down 15 steps with railing, supervision 9. Independent with home exercise program Plan of Care/Treatment Plan: 1-2x/day, 7 days/week x 1 week. Plan of care has been reviewed with the TRANSPORTATION DESIGN ENGINEER providing the service under Physical Therapy direction. Initiate Physical Therapy intervention for strengthening, bed mobility, transfers, gait, stairs, balance training, use of assistive device. DISCHARGE RECOMMENDATIONS: Home with home PT/OT vs. senior care care facility for rehab *Pt would benefit from OT Consultation in hospital setting to initiate self care with ADLS TREATMENT CODE/TIME: 26 min IE 10:20 G Codes in the area mobility of walking and moving around: current status [id number] CK; projected status GP [id number]. Discharge status (if discharging) GP [id number] CK based on AMPAC score CMS Score: 46.58% Ivis Ambrocio PT
--- NOTE | 2017-12-09 11:08 | IN_ITS ---
Date of service: 12/09/17 Time of Service: 11:00 PT Notes Inpatient Physical Therapy Evaluation Date: 12/09/17 Referring Doctor: Efrem Chao PT Orders: PT CONSULT: rectal CA, complicated UTI with sepsis, severe weakness and loss of ADLS Precautions: Standard precautions Patient Profile/Admitting Diagnosis: Pt is a 62yr old female admitted with septic shock, urinary tract infection in setting of squamous cell carcinoma of the anus PMHX: diabetes mellitus, anemia, supraventricular tachycardia, hypertension, hypothyroidism, gastroesopahgeal reflux disease, varicose veins bilateral lower extremities, hyperlipidemia Social History/Home Situation: Lives alone in a second story apartment, 4 steps with railing to enter building, flight of steps with railing to second floor apartment, no stairs inside apartment. Baseline mobility independent gait with no device, independent with ADLS. Pt's is a resident at [facility] with dementia, pt would like to transfer to this facility prior to return to home setting. Equipment Owned/DME: 's FWW Subjective: Pt sitting on commode, nurse in room assisting with cleaning up. Pt agreeable to PT Consult. Objective: General Observation: telemetry, R UE IV Mental Status: A&O x3 Pain: c/o pain in anus, RN providing pain medication Bed Mobility/Transfers: Sit-stand: SBA with FWW Bed-chair: SBA Stand-sit: SBA Gait: SBA with FWW 80ft, steady step through gait pattern. Pt left up in chair after session completed. Therex: Seated ankle pumps, long arc quads and hip flexion x 20 reps Balance: Static Sitting: normal Dynamic Sitting: normal Static Standing: fair Dynamic Standing: fair Special Tests: Mobility Limitations Standardized Measure [facility] AM-PAC 6 clicks Basic Mobility Inpatient Short Form: Raw Score: 18 Standardized Score: 43.63 CMS Score: 46.58% [facility] Modifier: CK Informed Consent/Education: Patient instructed in purpose of PT consult and plan of care. Assessment: Pt is a 62yr old female admitted with septic shock, urinary tract infection in setting of squamous cell carcinoma of the anus in setting of diabetes mellitus, anemia, supraventricular tachycardia. Patient presents with the following impairment level findings: weakness and decreased strength with bed mobility, standing transfers and gait with FWW due to recent hospital immobility, requiring FWW for gait stability to prevent falls, decreased static and dynamic standing balance. Pt's baseline mobility is independent, she will benefit from short term skilled therapy intervention for strengthening and progressive transfer, gait and stair training to assist return to prior level of function. Pt needs to be able to do a flight of steps to return to home setting. She is hoping for rehab stay prior to return to home independent. She would benefit from OT consult in hospital to assess for independence with ADLS. Impairments are contributing to the following functional limitations: AMPAC score CMS Score: 46.58% Patient is assessed as a Moderate [id number] complexity based on the following: History: see above Examination: see above Presentation: evolving Decision Making: AMPAC score CMS Score: 46.58% Goals: Goals X1 week 1. Supine-Sit independent 2. Sit-Supine independent 3. Sit-Stand supervision 4. Stand-Sit supervision 5. Bed-Chair SBA no device 6. Chair-Bed SBA no device 7. Gait SBA no device [id number] 8. Stairs up/down 15 steps with railing, supervision 9. Independent with home exercise program Plan of Care/Treatment Plan: 1-2x/day, 7 days/week x 1 week. Plan of care has been reviewed with the WIRE SPLICER providing the service under Physical Therapy direction. Initiate Physical Therapy intervention for strengthening, bed mobility, transfers, gait, stairs, balance training, use of assistive device. DISCHARGE RECOMMENDATIONS: Home with home PT/OT vs. alf care facility for rehab *Pt would benefit from OT Consultation in hospital setting to initiate self care with ADLS TREATMENT CODE/TIME: 26 min IE 10:20 G Codes in the area mobility of walking and moving around: current status [id number] CK; projected status GP [id number]. Discharge status (if discharging) GP [id number] CK based on AMPAC score CMS Score: 46.58% Ivis Ambrocio PT
[2017-12-09] MEDS: Insulin Aspart 300 UNITS/3 ML PEN SC ×2 (12:38→17:05)
[2017-12-09] MEDS: fentaNYL 12 MCG PATCH TD (14:08)
--- NOTE | 2017-12-09 14:24 | DM INPTCON_ITS ---
DESCRIPTION/ASSESSMENT: Follow-up review of chart for Sherry who is here with UTI. Blood sugars all less than 158 over Last 3 days taking sensitive insulin correction. INTERVENTION: None suggested. Will f/u when she feels better or as warranted.
--- NOTE | 2017-12-09 14:44 | PT.INNT ---
Date of service: 12/09/17 Time of Service: 13:19 PT Notes PHYSICAL THERAPY NOTE 12/09/17 Attempted to see patient for PT session, pt just received pain medication and taking a nap in bed, deferred therapy session. Will continue attempts in am Ivis Ambrocio PT
--- NOTE | 2017-12-09 18:18 | W.PM.PROGNOT ---
Assessment and Plan (1) UTI (urinary tract infection): Current visit: Yes Status: Acute Switched from IV Zosyn to p.o. Keflex yesterday. No fever no bump in her white count. Appears to be stable from an infectious disease point of view (2) Cancer related pain: Current visit: Yes Status: Acute The rectal pain is under reasonably good control. She is able to sit using a special cushion. Physical therapy is working with her for ambulation and strengthening. (3) SVT (supraventricular tachycardia): Current visit: Yes Status: Acute Asymptomatic run of SVT. We will keep her on telemetry. She is not on any rate controlling agents at this time. (4) Anemia: Current visit: Yes Status: Chronic Hemoglobin stable at 8.6. Blood pressures are much better after the transfusion. Again no overt signs of blood loss. We will trend her hemoglobin level and monitor vitals closely. Subjective Interval history since last seen: Patient is doing much better today. She is been up to chair and is walking across the room to the commode with assistance. She walks on the unit with physical therapy under her own power. Rectal pain is under reasonably good control. She is now off all drips and fluids. Satting fine on room air. Exam Narrative Exam Narrative: She is more alert and more animated today. She did not appear in any distress. Lung sounds were generally clear and dry heart sounds regular abdomen quite markedly obese but nontender the lower extremities showing 2-3+ edema bilaterally. No open sores no drainage Objective Objective Clinical Data: Abnormal lab results 12/06/17 12/09/17 12/09/17 Range/Units 16:40 06:25 06:25 WBC 3.14 L (4.4-10.8) k/cumm RBC 3.18 L (4.00-5.20) m/cumm Hgb 8.6 L (12.0-15.5) g/dL Hct 28.1 L (36.0-46.0) % MCHC 30.6 L (32.0-36.0) g/dL RDW 17.6 H (11.7-14.6) % Absolute Lymphocytes 0.40 L (1.2-3.4) k/cumm Creatinine 1.11 H (0.55-1.02) mg/dL Glucose 138 H (70-100) mg/dL Calcium 7.9 L (8.5-10.1) mg/dL Crossmatch See Detail Vital Signs Temperature 36.5 C 12/09/17 16:02 Temperature Source Tympanic 12/09/17 16:02 Pulse 86 12/09/17 16:02 Pulse Rhythm Regular 12/09/17 15:24 Pulse 87 12/09/17 13:00 Respiratory Rate 19 12/09/17 16:02 Respiratory Effort Non-Labored 12/09/17 15:24 Respiratory Depth Normal 12/09/17 15:24 Respiratory Pattern Normal 12/09/17 15:24 Blood Pressure 96/60 L 12/09/17 16:02 Blood Pressure Mean 86 12/09/17 14:49 Blood Pressure Position Left Lateral 12/09/17 03:00 Pulse Oximetry 96 12/09/17 16:02 Oxygen Delivery Method Room Air 12/09/17 16:02 Oxygen Flow Rate 0 12/09/17 16:02 Pain Level 2 12/09/17 17:07 Intake & Output 12/08/17 12/09/17 12/09/17 23:59 11:59 23:59 Intake Total 1186.667 / 3514.569 5588 / 3175 540 / 540 Output Total 1500 / 1500 2024 540 / 540 Balance -313.333 / -557.418 4666 / 1150 0 / 0 Weight 96.3 kg Intake: IV 1086.667 / 1635.984 6955 / 1275 100 / 100 Oral 100 / 100 1900 / 1900 440 / 440 Output: Urine 1500 / 1500 2024 540 / 540 Other: Urine Color Yellow Yellow Yellow Urine Appearance Clear Clear Clear Urine Odor Normal Normal Normal Comment All voids were mixed with stool. All voids were mixed with stool. stool mixesd with urine Stool Occult Blood Negative Positive Stool Size Moderate Moderate Small Stool Characteristics Soft Liquid Soft Formed Brown Brown Voiding Methods Bedside Commode Bedside Commode Bedside Commode Laboratory Results WBC 3.14 k/cumm (4.4-10.8) L 12/09/17 06:25 RBC 3.18 m/cumm (4.00-5.20) L 12/09/17 06:25 Hgb 8.6 g/dL (12.0-15.5) L 12/09/17 06:25 Hct 28.1 % (36.0-46.0) L 12/09/17 06:25 MCV 88.4 fL (80-95) 12/09/17 06:25 MCH 27.0 pg (27.0-33.0) 12/09/17 06:25 MCHC 30.6 g/dL (32.0-36.0) L 12/09/17 06:25 RDW 17.6 % (11.7-14.6) H 12/09/17 06:25 Plt Count 328 x1000/uL (130-400) 12/09/17 06:25 MPV 8.4 fL (8.0-11.0) 12/09/17 06:25 Immature Gran % 1.6 12/09/17 06:25 Neutrophils % 78.4 12/09/17 06:25 Lymphocytes % 12.7 12/09/17 06:25 Monocytes % 6.4 12/09/17 06:25 Eosinophils % 0.6 12/09/17 06:25 Basophils % 0.3 12/09/17 06:25 Absolute Neutrophils 2.46 k/cumm (1.2-6.7) 12/09/17 06:25 Band Neutrophils 2.0 % 12/07/17 11:24 Absolute Lymphocytes 0.40 k/cumm (1.2-3.4) L 12/09/17 06:25 Absolute Monocytes 0.20 k/cumm (0.11-0.7) 12/09/17 06:25 Absolute Eosinophils 0.02 k/cumm (0.0-0.7) 12/09/17 06:25 Absolute Basophils 0.01 k/cumm (0.0-0.2) 12/09/17 06:25 Differential Comment Manual differential 12/07/17 11:24 Atypical Lymphocytes 0 12/04/17 16:00 RBC Morphology See below 12/07/17 11:24 Polychromasia Present 12/04/17 16:00 Hypochromasia 2+ 12/07/17 11:24 Poikilocytosis 1+ 12/06/17 06:20 Basophilic Stippling Present 12/04/17 16:00 Microcytosis 2+ 12/07/17 11:24 Macrocytosis 1+ 12/04/17 16:00 Sodium 137 mmol/L (136-145) 12/09/17 06:25 Potassium 3.9 mmol/L (3.5-5.1) 12/09/17 06:25 Chloride 106 mmol/L (98-107) 12/09/17 06:25 Carbon Dioxide 21.4 mmol/L (21.0-32.0) 12/09/17 06:25 Anion Gap 9.6 mmol/L (3-11) 12/09/17 06:25 BUN 13 mg/dL (7-18) 12/09/17 06:25 Creatinine 1.11 mg/dL (0.55-1.02) H 12/09/17 06:25 Estimated GFR/1.73 m2 49.49 (mL/min/1.73m2) 12/09/17 06:25 Glucose 138 mg/dL (70-100) H 12/09/17 06:25 Lactate 0.9 mmol/L (0.6-1.4) 12/05/17 08:25 Calcium 7.9 mg/dL (8.5-10.1) L 12/09/17 06:25 Magnesium 1.6 mg/dL (1.8-2.4) L 12/07/17 05:50 Total Bilirubin 0.4 mg/dL (0.2-1.0) 12/07/17 05:50 AST 43 U/L (15-37) H 12/07/17 05:50 ALT 25 U/L (12-78) 12/07/17 05:50 Alkaline Phosphatase 123 U/L (46-116) H 12/07/17 05:50 Troponin I < 0.02 ng/mL (0.00-0.06) 12/04/17 16:00 Total Protein 5.4 g/dL (6.4-8.2) L 12/07/17 05:50 Albumin 1.2 g/dL (3.4-5.0) L 12/07/17 05:50 TSH 1.68 uIU/mL (0.358-3.74) 12/04/17 18:00 Urine Color Yellow (Yellow) 12/04/17 16:50 Urine Clarity Cloudy 12/04/17 16:50 Urine pH 6.0 (5-8) 12/04/17 16:50 Ur Specific [place] 1.010 (1.005-1.025) 12/04/17 16:50 Urine Protein 100 mg/dL (Negative) H 12/04/17 16:50 Urine Ketones Negative mg/dL (Negative) 12/04/17 16:50 Urine Blood Moderate (Negative) H 12/04/17 16:50 Urine Nitrite Negative (Negative) 12/04/17 16:50 Urine Bilirubin Small (Negative) H 12/04/17 16:50 Urine Urobilinogen 1.0 EU/dL (Up TO 0.2) H 12/04/17 16:50 Ur Leukocyte Esterase Large (Negative) H 12/04/17 16:50 Urine RBC >50 (0-2) H 12/04/17 16:50 Urine WBC >50 HPF (0-5) 12/04/17 16:50 Ur Epithelial Cells Few HPF (Negative) 12/04/17 16:50 Urine Crystals Negative HPF (Negative) 12/04/17 16:50 Urine Bacteria Many HPF (Negative) 12/04/17 16:50 Urine Casts Negative LPF (Negative) 12/04/17 16:50 Urine Mucus Heavy (Negative) 12/04/17 16:50 Urine Other Negative (Negative) 12/04/17 16:50 Ur Culture Indicated? Yes 12/04/17 16:50 Urine Glucose Negative mg/dL (Negative) 12/04/17 16:50 Patient ABO/Rh O Positive 12/06/17 16:40 Antibody Screen Negative 12/06/17 16:40 Crossmatch See Detail 12/06/17 16:40 Objective Narrative Objective Narrative: Telemetry today showed run of SVT
[2017-12-09] MEDS: Normal Saline Flush 10 ML SYR IVP (21:04)
[2017-12-09] MEDS: Simvastatin 10 MG TAB PO (21:05)
[2017-12-10] VITALS (16 sets, daily range): BP systolic 72–134; BP diastolic 48–81; PULSE 70–203; RESP 16–22; TEMP 35.6–36.8; O2SAT 90–96
[2017-12-10] MEDS: Heparin 5,000 UNITS/ML VIAL 5000 UNITS SC ×3 (05:43→23:46)
[2017-12-10 07:20] LABS: Abs Immature Grans 0.01 k/cumm (0.0-0.09); Absolute Basophil Count 0.01 k/cumm (0.0-0.2); Absolute Eosinophil Count 0.03 k/cumm (0.0-0.7); Absolute Lymphocyte Count 0.42 k/cumm (1.2-3.4); Absolute Neutrophil Count 2.36 k/cumm (1.2-6.7); Basophils % 0.3; HCT 27.4 % (36.0-46.0); HGB 8.6 g/dL (12.0-15.5); Immature Grans % 0.3; Lymphocytes % 13.9; Mean Corp. HGB Concentration 31.4 g/dL (32.0-36.0); Mean Corpuscular Hemoglobin 27.8 pg (27.0-33.0); Mean Corpuscular Volume 88.7 fL (80-95); Mean Platelet Volume 8.3 fL (8.0-11.0); Monocytes % 6.6; Neutrophils % 77.9; Platelet Count 310 x1000/uL (130-400); RBC 3.09 m/cumm (4.00-5.20); RBC Distribution Width 17.5 % (11.7-14.6); White Blood Cell Count 3.03 k/cumm (4.4-10.8)
[2017-12-10 07:27] LABS: Anion Gap 8.5 mmol/L (3-11); BUN 9 mg/dL (7-18); CO2 22.5 mmol/L (21.0-32.0); Chloride 107 mmol/L (98-107); Estimated GFR 55.82 (mL/min/1.73m2); Glucose 128 mg/dL (70-100); Potassium 3.7 mmol/L (3.5-5.1); Sodium 138 mmol/L (136-145)
[2017-12-10] MEDS: Aspirin E.C. 81 MG TABEC PO (09:03)
[2017-12-10] MEDS: Magnesium Oxide 400 MG TAB PO ×2 (09:03→19:26)
[2017-12-10] MEDS: Cephalexin 500 MG CAP PO ×3 (09:03→19:26)
[2017-12-10] MEDS: Pantoprazole 40 MG TABCR PO (09:03)
[2017-12-10] MEDS: Insulin Aspart 300 UNITS/3 ML PEN SC ×3 (09:03→17:25)
[2017-12-10] MEDS: Docusate Sodium 100 MG CAP PO (09:20)
--- NOTE | 2017-12-10 09:51 | PT.INTREAT ---
Date of service: 12/10/17 Time of Service: 08:10 PT Notes Inpatient Physical Therapy Treatment Note Date: 12/10/17 PRECAUTIONS: standard precautions SUBJECTIVE: Pt lying in bed, states she already sat up in chair this morning, talking to RN in room regarding pain medication. Agreeable to therapy session. States I am going to the rehab with my . OBJECTIVE PAIN: reports 8/10 pain sitting at edge of bed. RN and MD in room and patient receiving medication Bed Mobility/Transfers: Supine-sit: independent Sit-supine: independent Sit-stand: supervision with FWW Stand-sit: supervision Gait: supervision with FWW 50ftx2, steady step through gait pattern. Reports feeling lightheaded returned to room to sit at edge of bed. BP 110/65 at bedside, symptoms resolved with sitting rest break. Balance: Static Sitting: normal Dynamic Sitting: normal Static Standing: fair Dynamic Standing: fair ASSESSMENT: Pt mobilizing well with transfers and gait with FWW, supervision only. Pt's limitation this morning is feeling lightheaded. PLAN: Progress strengthening Progress gait distance TREATMENT CODE/TIME: 23min TAx2 8:10 Ivis Ambrocio PT
--- NOTE | 2017-12-10 11:02 | OT.INIE ---
Occupational Therapy Notes Inpatient Occupational Therapy Evaluation Date: 12/10/17 Referring Doctor:Efrem Chao MD OT Orders: Loss of ADLs Precautions: Standard Precautions PATIENT PROFILE/ADMITTING DIAGNOSIS: Pt is a 62 year old female referred for OT consult for loss of ADLs s/p admission to [facility] with septic shock, urinary tract infection in setting of squamous cell carcinoma of the anus. Past Medical History: Diabetes mellitus, anemia, supraventricular tachycardia, hypertension, hypothyroidism, gastroesopahgeal reflux disease, varicose veins bilateral lower extremities, and hyperlipidemia Current Functional Limitations: Decreased functional activity tolerance, decreased (I) in ADLs including toileting, dressing, bathing, decreased strength (R) UE. Social History/Home Situation: Pt reports that she lives alone in a second story apartment. She has 4 steps with railing to enter building, flight of steps with railing to second floor apartment, no stairs inside apartment. Baseline (I) with ADLs per pt report is as follows: Bathing: Standing in shower with fixed shower head, able to (I) transfer into tub/shower. Eating: (I), able to stand at stove for cooking for as long as needed meals prepared by friends and family and then froze. Dressing: (I) both UE/LE without the use of adaptive equipment. Toileting: On toilet, pt reports that she would have her daughter wipe her after a bowel movement if needed. If daughter wasn't there then pt was able to wipe. Pt reports that she would like to stay at [facility] prior to return home to continue to get stronger. Her is currently as [facility]. 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 Equipment owned/DME: Husbands FWW SUBJECTIVE: Pt was laying in bed when OT arrived. She states that she is tired and needs sleep but is agreeable to get up for a little bit, but then wants to lay down. OBJECTIVE: General Observation: Telemetry, (R) IV not connected. Mental Status: A&O x3 Pain: no c/o pain during OT consult. ROM: RUE WNL L UE WNL STRENGTH: RUE shoulder flexion 3/5 ( Pt reports a (R) shoulder injury which she has seen Dr. Carmona in the past. Pt describes it as a crack between the collar bone and shoulder bone. , elbow 5/5, case investigator 5/5 LUE Shoulder flexion 4/5, elbow 5/5, case investigator 5/5 SENSATION: Pt intact to light touch and sensation to (B) UE. FUNCTIONAL MOBILITY/ADLS: Transfers Supine-sit S Sit-supine S Sit-Stand S Stand-sit S, FWW Bed-Commode S, FWW BATHING Bathing UE Sitting in chair pt able to (I) wash/dry UE. Bathing LE Sitting in chair pt able to wash her upper thighs, denies ability to wash lower legs/ feet stating she has too much swelling in her feet. OT provided max (A) for lower legs and feet. DRESSING Dressing UE Able to (I) don and doff gown. Dressing LE Max (A) don and doff socks, pt required min (A) for disposable underwear. GROOMING pt denies this during OT consult but reports that she is able to perform this sitting in her chair. TOILETING Pt used commode with S, FWW for functional mobility. Pt able to ambulate distance to toilet at this time however states she was too tired during OT session and denies using toilet. Pt requires min (A) for wiping rectum. BALANCE: Static sitting Normal Dynamic Sitting Normal Static Standing Normal Dynamic Standing Good SPECIAL TESTS: Daily Activity Limitations Standardized Measure [facility] AM -PAC ?6 clicks? Daily Activity Inpatient Short Form: Raw score: 20 Standardized score: 42.03 CMS score: 38.32% [facility] modifier: CJ INFORMED CONSENT/EDUCATION: Pt instructed in purpose of OT Consult and plan of care. ASSESSMENT: Patient is a 62-year-old female referred to occupational therapy services with diagnosis of loss of ADLs when admitted with septic shock, urinary tract infection in setting of squamous cell carcinoma of the anus in setting of diabetes mellitus, anemia, supraventricular tachycardia. Patient presents with the following impairment level findings: Decreased functional activity tolerance, decreased (I) in ADLs including toileting, dressing, bathing, decreased strength (R) UE, and functional mobility performed with FWW. Pt's baseline (I) with functional acitivites/ ADLs is independent with min (A) for wiping rectum post toileting routine. Pt would benefit from skilled OT services for initiation of upper extremity strengthening prescription, education on energy conservation techniques, education on adaptive equipment for toileting and dressing routine and increased (I) in functional activity tolerance. AMPAC score 20, CMS score 38.32%. Patient is assessed as a Moderate 24714 complexity based on the following: History: See Above Examination: See Functional limitations Presentation: Evolving Decision Making: AMPAC score 20, CMS score 38.32% GOALS Goals x1 week 2. Dressing Mod (I) donning socks, (I) donning pants and underwear. 3. Bathing standing in shower, (I) with UE/ LE bathing 4. Toileting on toilet (I) with wiping using adaptive equipment for rectum. PLAN OF CARE/TREATMENT PLAN: 1x/day, 5 days/ week x 1week Initiate Occupational Therapy Services for bathing, dressing, grooming, toileting, eating, transfer training. DISCHARGE RECOMMENDATIONS Pt would like to be discharged to [facility] versus recommend that pt return home when medically cleared to do so with home OT/PT. TREATMENT TIME/MINUTES/CODES 10:00, 40 min. IE, Self Care x1 G Codes in the area of self- : washing oneself, toileting, dressing, eating and drinking, current status [id number] CJ projected status GP [id number]. Discharge status (if discharging) GP [id number]
--- NOTE | 2017-12-10 11:12 | OTIE_ITS ---
Occupational Therapy Notes Inpatient Occupational Therapy Evaluation Date: 12/10/17 Referring Doctor:Efrem Chao MD OT Orders: Loss of ADLs Precautions: Standard Precautions PATIENT PROFILE/ADMITTING DIAGNOSIS: Pt is a 62 year old female referred for OT consult for loss of ADLs s/p admission to [facility] with septic shock, urinary tract infection in setting of squamous cell carcinoma of the anus. Past Medical History: Diabetes mellitus, anemia, supraventricular tachycardia, hypertension, hypothyroidism, gastroesopahgeal reflux disease, varicose veins bilateral lower extremities, and hyperlipidemia Current Functional Limitations: Decreased functional activity tolerance, decreased (I) in ADLs including toileting, dressing, bathing, decreased strength (R) UE. Social History/Home Situation: Pt reports that she lives alone in a second story apartment. She has 4 steps with railing to enter building, flight of steps with railing to second floor apartment, no stairs inside apartment. Baseline (I) with ADLs per pt report is as follows: Bathing: Standing in shower with fixed shower head, able to (I) transfer into tub/shower. Eating: (I), able to stand at stove for cooking for as long as needed meals prepared by friends and family and then froze. Dressing: (I) both UE/LE without the use of adaptive equipment. Toileting: On toilet, pt reports that she would have her daughter wipe her after a bowel movement if needed. If daughter wasn't there then pt was able to wipe. Pt reports that she would like to stay at [facility] prior to return home to continue to get stronger. Her is currently as [facility]. 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 Equipment owned/DME: [employer] SUBJECTIVE: Pt was laying in bed when OT arrived. She states that she is tired and needs sleep but is agreeable to get up for a little bit, but then wants to lay down. OBJECTIVE: General Observation: Telemetry, (R) IV not connected. Mental Status: A&O x3 Pain: no c/o pain during OT consult. ROM: RUE WNL L UE WNL STRENGTH: RUE shoulder flexion 3/5 ( Pt reports a (R) shoulder injury which she has seen Dr. Carmona in the past. Pt describes it as a crack between the collar bone and shoulder bone. , elbow 5/5, community educator 5/5 LUE Shoulder flexion 4/5, elbow 5/5, community educator 5/5 SENSATION: Pt intact to light touch and sensation to (B) UE. FUNCTIONAL MOBILITY/ADLS: Transfers Supine-sit S Sit-supine S Sit-Stand S Stand-sit S, FWW Bed-Commode S, FWW BATHING Bathing UE Sitting in chair pt able to (I) wash/dry UE. Bathing LE Sitting in chair pt able to wash her upper thighs, denies ability to wash lower legs/ feet stating she has too much swelling in her feet. OT provided max (A) for lower legs and feet. DRESSING Dressing UE Able to (I) don and doff gown. Dressing LE Max (A) don and doff socks, pt required min (A) for disposable underwear. GROOMING pt denies this during OT consult but reports that she is able to perform this sitting in her chair. TOILETING Pt used commode with S, FWW for functional mobility. Pt able to ambulate distance to toilet at this time however states she was too tired during OT session and denies using toilet. Pt requires min (A) for wiping rectum. BALANCE: Static sitting Normal Dynamic Sitting Normal Static Standing Normal Dynamic Standing Good SPECIAL TESTS: Daily Activity Limitations Standardized Measure [facility] AM -PAC ?6 clicks? Daily Activity Inpatient Short Form: Raw score: 20 Standardized score: 42.03 CMS score: 38.32 % [facility] modifier: CJ INFORMED CONSENT/EDUCATION: Pt instructed in purpose of OT Consult and plan of care. ASSESSMENT: Patient is a 62-year-old female referred to occupational therapy services with diagnosis of loss of ADLs when admitted with septic shock, urinary tract infection in setting of squamous cell carcinoma of the anus in setting of diabetes mellitus, anemia, supraventricular tachycardia. Patient presents with the following impairment level findings: Decreased functional activity tolerance, decreased (I) in ADLs including toileting, dressing, bathing , decreased strength (R) UE, and functional mobility performed with FWW. Pt's baseline (I) with functional acitivites/ ADLs is independent with min (A) for wiping rectum post toileting routine. Pt would benefit from skilled OT services for initiation of upper extremity strengthening prescription, education on energy conservation techniques, education on adaptive equipment for toileting and dressing routine and increased (I) in functional activity tolerance. AMPAC score 20, CMS score 38.32%. Patient is assessed as a Moderate [id number] complexity based on the following: History: See Above Examination: See Functional limitations Presentation: Evolving Decision Making: AMPAC score 20, CMS score 38.32% GOALS Goals x1 week 2. Dressing Mod (I) donning socks, (I) donning pants and underwear. 3. Bathing standing in shower, (I) with UE/ LE bathing 4. Toileting on toilet (I) with wiping using adaptive equipment for rectum. PLAN OF CARE/TREATMENT PLAN: 1x/day, 5 days/ week x 1week Initiate Occupational Therapy Services for bathing, dressing, grooming, toileting, eating, transfer training. DISCHARGE RECOMMENDATIONS Pt would like to be discharged to [facility] versus recommend that pt return home when medically cleared to do so with home OT/PT. TREATMENT TIME/MINUTES/CODES 10:00, 40 min. IE, Self Care x1 G Codes in the area of self- : washing oneself, toileting, dressing, eating and drinking, current status [id number] CJ projected status GP [id number]. Discharge status (if discharging) GP [id number]
--- NOTE | 2017-12-10 13:31 | PDOC.CMPRO ---
- If Service Date Differs Date of service: 12/10/17 Time of Service: 13:31 Care Management Progress Note S/O: CM met with Sherry at the bedside she is tearful during the visit. Sherry is worried about her recovery and financial situation. Her short term disability is due to end the end of December. She feels that she needs to transition to SNF prior to returning home. CM has been in contact with Human resources and left a voicemail at Sherry's employer. CM attempting to verify if she has technician terminal and repeater disability in conjunction with short term. CM contacted [facility] and spoke with admission director he has been unable to verify rehab benefit through [facility]. CM provided updated insurance information with admission director. CM verified Pt insurance is [employer] which should be in network. Sherry request that her daughter Crystal be updated CM left a voicemail with update and request for call back. BROOKLYNN spoke with Shanique HUNTLEY at [employer] to follow up application for disability and resources to assist Sherry in the community. Shanique states she would print off the information from the SSA site and give to the patient. Encourage the patient to apply online or by telephone with the assistance of her daughter. CM to provide resources to Sherry and family related to Disability application. CM provided an update r/t palliative care. A: Sherry is a 62 year old female admitted with sepsis related to UTI with recent treatment for Rectal cancer P: No change in Sherry's status today. Her Fentanyl patch was increased today. Awaiting bed offer from [facility] and insurance authorization through [employer] care. CM to continue to offer support to patient and family ongoing discharge planning and disposition.
--- NOTE | 2017-12-10 13:59 | W.PM.PROGNOT ---
Assessment and Plan (1) UTI (urinary tract infection): Current visit: Yes Status: Acute Continues to do well recovering from E. coli urinary tract infection with sepsis and hypotension. Now tolerating oral antibiotics with no recurrence of fever. (2) Anal cancer: Current visit: Yes Status: Chronic Passing flatus and having bowel movements, pain management per patient's opinion is adequate with current fentanyl and oral short acting morphine. Offered to increase fentanyl patch strength in hopes of decreasing the frequency that she needs morphine and she prefers to continue the current regimen. Continue to monitor for problems with constipation pain or bleeding. (3) SVT (supraventricular tachycardia): Current visit: Yes Status: Acute No symptoms attributable to this, all episodes have resolved spontaneously. Some complexes are wide, wonder if this may represent nonsustained VT? Continue to monitor on telemetry. Blood pressure too soft to start on a beta-willian. (4) Essential hypertension: Current visit: Yes Status: Chronic Certainly not a problem now, lisinopril remains on hold. (5) Diabetes mellitus: Current visit: Yes Status: Chronic Blood sugars overall acceptable but creeping up. I am starting her back on metformin, half her outpatient dose and monitor blood sugar response. (6) DVT prophylaxis: Current visit: Yes Status: Acute Continues on subcu heparin for DVT prophylaxis. (7) Anemia: Current visit: Yes Status: Chronic No overt bleeding. Hemoglobin and hematocrit remained stable. Continue to follow with labs. (8) Peripheral edema: Current visit: Yes Status: Acute Likely due to fluid resuscitation and management of her hypotension and sepsis. I expect this will all mobilize spontaneously and I am not going to administer diuretics at this point absent any pulmonary edema or significant subjective discomfort from the edema. Subjective Interval history since last seen: Mrs. Werner is a little apprehensive about leaving the hospital prematurely. She anticipates going to [facility] and rehab in hopes to be in the same room with her . She has not had any fevers. Her appetite is fair but improving. She continues to have pain in the rectal area that she reports is adequately controlled with her current fentanyl and short acting morphine provided it is offered about every 2 hours around the clock. She rather not make any change in this regimen at the present time. Denies nausea or vomiting. She is passing gas and has not had any painful bowel movements nor blood per rectum. She is not sure what the plan is for future chemotherapy or radiation therapy. She was never told that she would need to have a port inserted. With verbal consent, the right IJ line was removed without incident. Area was cleaned with Betadine. The retaining sutures, one around the distal catheter and 2 at the suture attachment site more proximally were removed without incident and the catheter was removed in its entirety without bleeding. Exam Narrative Exam Narrative: She is a little sedated after recent dose of MSIR but is able to sit and talk, cooperate with exam and transfer into bed on request. No fever. Blood pressure slowly creeping up, with systolics 100s-130s. IJ line right neck without any signs of inflammation around it. Neck veins are not distended. Lungs are clear. Regular heart rhythm with no murmur S3 or S4. Abdomen nontender active bowel sounds obese. No petechiae, there is 2-3+ edema in the lower extremities bilaterally. Objective Objective Clinical Data: Abnormal lab results 12/06/17 12/10/17 12/10/17 Range/Units 16:40 06:45 06:45 WBC 3.03 L (4.4-10.8) k/cumm RBC 3.09 L (4.00-5.20) m/cumm Hgb 8.6 L (12.0-15.5) g/dL Hct 27.4 L (36.0-46.0) % MCHC 31.4 L (32.0-36.0) g/dL RDW 17.5 H (11.7-14.6) % Absolute Lymphocytes 0.42 L (1.2-3.4) k/cumm Glucose 128 H (70-100) mg/dL Calcium 8.0 L (8.5-10.1) mg/dL Crossmatch See Detail Vital Signs Temperature 36.2 C L 12/10/17 07:15 Temperature Source Tympanic 12/10/17 07:15 Pulse 157 H 12/10/17 09:15 Pulse Rhythm Regular 12/10/17 08:30 Pulse 87 12/09/17 13:00 Respiratory Rate 16 12/10/17 07:15 Respiratory Effort 12/10/17 08:30 Respiratory Depth Normal 12/10/17 08:30 Respiratory Pattern Normal 12/10/17 08:30 Blood Pressure 103/63 12/10/17 07:15 Blood Pressure Mean 86 12/09/17 14:49 Blood Pressure Position Left Lateral 12/09/17 03:00 Pulse Oximetry 95 12/10/17 09:15 Oxygen Delivery Method Room Air 12/10/17 09:15 Oxygen Flow Rate 0 12/10/17 09:15 Pain Level 8 12/10/17 12:34 Comment 12/10/17 03:25 Intake & Output 12/09/17 12/10/17 12/10/17 23:59 11:59 23:59 Intake Total 540 / 540 965 / 965 Output Total 1040 / 1040 1350 / 1350 Balance -500 / -500 -385 / -385 Weight 107.3 kg Intake: IV 100 / 100 Oral 440 / 440 965 / 965 Output: Urine 1040 / 1040 1350 / 1350 Other: Urine Color Straw Yellow Urine Appearance Clear Clear Urine Odor None Normal Comment stool mixesd with urine pt voided independently on bediside commode. this scribe p[rovided fariba care at this time Stool Size Small Small Stool Characteristics Liquid Soft Brown Voiding Methods Bedside Commode Bedside Commode Laboratory Results WBC 3.03 k/cumm (4.4-10.8) L 12/10/17 06:45 RBC 3.09 m/cumm (4.00-5.20) L 12/10/17 06:45 Hgb 8.6 g/dL (12.0-15.5) L 12/10/17 06:45 Hct 27.4 % (36.0-46.0) L 12/10/17 06:45 MCV 88.7 fL (80-95) 12/10/17 06:45 MCH 27.8 pg (27.0-33.0) 12/10/17 06:45 MCHC 31.4 g/dL (32.0-36.0) L 12/10/17 06:45 RDW 17.5 % (11.7-14.6) H 12/10/17 06:45 Plt Count 310 x1000/uL (130-400) 12/10/17 06:45 MPV 8.3 fL (8.0-11.0) 12/10/17 06:45 Immature Gran % 0.3 12/10/17 06:45 Neutrophils % 77.9 12/10/17 06:45 Lymphocytes % 13.9 12/10/17 06:45 Monocytes % 6.6 12/10/17 06:45 Eosinophils % 1.0 12/10/17 06:45 Basophils % 0.3 12/10/17 06:45 Absolute Neutrophils 2.36 k/cumm (1.2-6.7) 12/10/17 06:45 Band Neutrophils 2.0 % 12/07/17 11:24 Absolute Lymphocytes 0.42 k/cumm (1.2-3.4) L 12/10/17 06:45 Absolute Monocytes 0.20 k/cumm (0.11-0.7) 12/10/17 06:45 Absolute Eosinophils 0.03 k/cumm (0.0-0.7) 12/10/17 06:45 Absolute Basophils 0.01 k/cumm (0.0-0.2) 12/10/17 06:45 Differential Comment Manual differential 12/07/17 11:24 Atypical Lymphocytes 0 12/04/17 16:00 RBC Morphology See below 12/07/17 11:24 Polychromasia Present 12/04/17 16:00 Hypochromasia 2+ 12/07/17 11:24 Poikilocytosis 1+ 12/06/17 06:20 Basophilic Stippling Present 12/04/17 16:00 Microcytosis 2+ 12/07/17 11:24 Macrocytosis 1+ 12/04/17 16:00 Sodium 138 mmol/L (136-145) 12/10/17 06:45 Potassium 3.7 mmol/L (3.5-5.1) 12/10/17 06:45 Chloride 107 mmol/L (98-107) 12/10/17 06:45 Carbon Dioxide 22.5 mmol/L (21.0-32.0) 12/10/17 06:45 Anion Gap 8.5 mmol/L (3-11) 12/10/17 06:45 BUN 9 mg/dL (7-18) 12/10/17 06:45 Creatinine 1.00 mg/dL (0.55-1.02) 12/10/17 06:45 Estimated GFR/1.73 m2 55.82 (mL/min/1.73m2) 12/10/17 06:45 Glucose 128 mg/dL (70-100) H 12/10/17 06:45 Lactate 0.9 mmol/L (0.6-1.4) 12/05/17 08:25 Calcium 8.0 mg/dL (8.5-10.1) L 12/10/17 06:45 Magnesium 1.6 mg/dL (1.8-2.4) L 12/07/17 05:50 Total Bilirubin 0.4 mg/dL (0.2-1.0) 12/07/17 05:50 AST 43 U/L (15-37) H 12/07/17 05:50 ALT 25 U/L (12-78) 12/07/17 05:50 Alkaline Phosphatase 123 U/L (46-116) H 12/07/17 05:50 Troponin I < 0.02 ng/mL (0.00-0.06) 12/04/17 16:00 Total Protein 5.4 g/dL (6.4-8.2) L 12/07/17 05:50 Albumin 1.2 g/dL (3.4-5.0) L 12/07/17 05:50 TSH 1.68 uIU/mL (0.358-3.74) 12/04/17 18:00 Urine Color Yellow (Yellow) 12/04/17 16:50 Urine Clarity Cloudy 12/04/17 16:50 Urine pH 6.0 (5-8) 12/04/17 16:50 Ur Specific [place] 1.010 (1.005-1.025) 12/04/17 16:50 Urine Protein 100 mg/dL (Negative) H 12/04/17 16:50 Urine Ketones Negative mg/dL (Negative) 12/04/17 16:50 Urine Blood Moderate (Negative) H 12/04/17 16:50 Urine Nitrite Negative (Negative) 12/04/17 16:50 Urine Bilirubin Small (Negative) H 12/04/17 16:50 Urine Urobilinogen 1.0 EU/dL (Up TO 0.2) H 12/04/17 16:50 Ur Leukocyte Esterase Large (Negative) H 12/04/17 16:50 Urine RBC >50 (0-2) H 12/04/17 16:50 Urine WBC >50 HPF (0-5) 12/04/17 16:50 Ur Epithelial Cells Few HPF (Negative) 12/04/17 16:50 Urine Crystals Negative HPF (Negative) 12/04/17 16:50 Urine Bacteria Many HPF (Negative) 12/04/17 16:50 Urine Casts Negative LPF (Negative) 12/04/17 16:50 Urine Mucus Heavy (Negative) 12/04/17 16:50 Urine Other Negative (Negative) 12/04/17 16:50 Ur Culture Indicated? Yes 12/04/17 16:50 Urine Glucose Negative mg/dL (Negative) 12/04/17 16:50 Patient ABO/Rh O Positive 12/06/17 16:40 Antibody Screen Negative 12/06/17 16:40 Crossmatch See Detail 12/06/17 16:40
--- NOTE | 2017-12-10 15:03 | CMPROGNOTE_ITS ---
- If Service Date Differs Date of service: 12/10/17 Time of Service: 13:31 Care Management Progress Note S/O: CM met with Sherry at the bedside she is tearful during the visit. Sherry is worried about her recovery and financial situation. Her short term disability is due to end the end of December. She feels that she needs to transition to SNF prior to returning home. CM has been in contact with Human resources and left a voicemail at Sherry's employer. CM attempting to verify if she has intermediate frame tender disability in conjunction with short term. CM contacted [facility] and spoke with admission director he has been unable to verify rehab benefit through [facility]. CM provided updated insurance information with admission director. CM verified Pt insurance is [employer] which should be in network. Sherry request that her daughter Crystal be updated CM left a voicemail with update and request for call back. BROOKLYNN spoke with Shanique HUNTLEY at [facility] to follow up application for disability and resources to assist Sherry in the community. Shanique states she would print off the information from the SSA site and give to the patient. Encourage the patient to apply online or by telephone with the assistance of her daughter. CM to provide resources to Sherry and family related to Disability application. CM provided an update r/t palliative care. A: Sherry is a 62 year old female admitted with sepsis related to UTI with recent treatment for Rectal cancer P: No change in Sherry's status today. Her Fentanyl patch was increased today. Awaiting bed offer from [facility] and insurance authorization through [employer] care. CM to continue to offer support to patient and family ongoing discharge planning and disposition.
--- NOTE | 2017-12-10 15:08 | PT.INTREAT ---
Date of service: 12/10/17 Time of Service: 13:06 PT Notes Date: 12/10/17 PRECAUTIONS: standard precautions SUBJECTIVE: Pt lying in bed, agreeable to therapy session, states she feels better this afternoon than she did this morning. OBJECTIVE PAIN: no c/o pain Bed Mobility/Transfers: Supine-sit: independent Sit-supine: independent Sit-stand: supervision with FWW Stand-sit: supervision Gait: supervision with FWW 150ft steady step through gait pattern. Pt returned to bed after session completed. Therex: seated ankle pumps, long arc quads 20 reps bilaterally, hip flexion 10 reps Balance: Static Sitting: normal Dynamic Sitting: normal Static Standing: fair Dynamic Standing: fair ASSESSMENT: Increased gait distance this afternoon, able to progress to LE strengthening exercises. PLAN: Progress strengthening Progress gait distance TREATMENT CODE/TIME: 25min TAx1 TP x1 1305 Ivis Ambrocio PT
[2017-12-10] MEDS: Normal Saline Flush 10 ML SYR IVP ×2 (17:11→19:26)
[2017-12-10] MEDS: metFORMIN 500 MG TAB PO (17:25)
[2017-12-10] MEDS: Metoprolol 25 MG TAB 12.5 MG PO (18:11)
[2017-12-10] MEDS: Simvastatin 10 MG TAB PO (23:46)
[2017-12-11] VITALS (8 sets, daily range): BP systolic 102–117; BP diastolic 62–64; PULSE 76–88; RESP 16; TEMP 36.1–36.2; O2SAT 93–100
[2017-12-11] MEDS: Metoprolol 25 MG TAB 12.5 MG PO (02:04)
[2017-12-11] MEDS: Heparin 5,000 UNITS/ML VIAL 5000 UNITS SC ×3 (05:15→22:43)
[2017-12-11 07:20] LABS: Abs Immature Grans 0.02 k/cumm (0.0-0.09); Absolute Basophil Count 0.02 k/cumm (0.0-0.2); Absolute Eosinophil Count 0.02 k/cumm (0.0-0.7); Absolute Lymphocyte Count 0.53 k/cumm (1.2-3.4); Absolute Monocyte Count 0.31 k/cumm (0.11-0.7); Absolute Neutrophil Count 2.45 k/cumm (1.2-6.7); Basophils % 0.6; Eosinophils % 0.6; HCT 28.1 % (36.0-46.0); HGB 8.6 g/dL (12.0-15.5); Immature Grans % 0.6; Lymphocytes % 15.8; Mean Corp. HGB Concentration 30.6 g/dL (32.0-36.0); Mean Corpuscular Hemoglobin 27.2 pg (27.0-33.0); Mean Corpuscular Volume 88.9 fL (80-95); Mean Platelet Volume 8.7 fL (8.0-11.0); Monocytes % 9.3; Neutrophils % 73.1; Platelet Count 279 x1000/uL (130-400); RBC 3.16 m/cumm (4.00-5.20); RBC Distribution Width 17.6 % (11.7-14.6); White Blood Cell Count 3.35 k/cumm (4.4-10.8)
--- NOTE | 2017-12-11 09:15 | OT.INTREAT ---
Date of service: 12/11/17 Time of Service: 08:30 Occupational Therapy Notes Occupational Therapy Inpatient Treatment Note Date: 12/11/17 SUBJECTIVE: Pt was lying in bed when OT arrived. Pt states that she slept ok last night and that she was waking up every hour but reports this was her normal before being admitted. Pt agreeable to OT session. OBJECTIVE: PAIN:Pt complains of a 5/10 pain in her rectum. She states that this is how she feels when she sits for too long. Nurse was going to give pt pain medication post treatment. FUNCTIONAL MOBILITY Rolling L/R: S Supine-sit: S Sit-supine: S Sit-stand: S, FWW Stand-sit: S, FWW BATHING: Pt denies going to the shower today stating that she doesn't feel the need to shower everyday. Pt agreeable to bathing at bedside today. Upper Body: (I) with UE bathing including arms, axilla and trunk. Lower Body: Pt denies bathing LE/feet stating that she washed them yesterday and doesn't think that they need to be washed everyday. DRESSING: Upper Extremity: Pt able to (I) don gown. Pt states I plan to stay in the hospital gowns and not get dressed while I'm here. Lower Extremity: Max (A) for don and doff socks. Pt denies the need for sock aid stating that once her swelling goes down she will be able to do this on her own. Pt educated on LE dressing techniques while in supine with roll from side to side. Pt was receptive to information and gave verbal acknowledgement to education provided. Written and illustrated hand out was provided to pt. TOILETING: Device: S, FWW Assist: Mod (A) for wiping rectum, however pt was able to (I) perform toileting until this point. Pt educated on adaptive equipment for wiping, with education on how to use equipment and handout presented on pt on where to find it. ASSESSMENT: Pt receptive to education provided for adaptive equipment for wiping and LE dressing in supine. Pt also given written and illustrated handout for energy conservation techniques in her home. Pt provided verbal acknowledgement to education provided and able to verbalize modifications in her home that would conserve energy when she returns. Pt requiring decreased need for instruction with decreased demonstration and education needed. Pt would benefit from OT skilled services for training in safe technique for transfers for bathing routine, initiation of UE exercise prescription to increase functional activitiy tolerance for ADLs. PLAN: Continue per POC, Initiate UE strengthening prescription Training in safe technique for transfers for bathing routine. TREATMENT CODES/TIME: Self care X 3, 08:30
[2017-12-11] MEDS: Pantoprazole 40 MG TABCR PO (09:23)
[2017-12-11] MEDS: Metoprolol 25 MG TAB PO ×2 (09:24→20:12)
[2017-12-11] MEDS: Aspirin E.C. 81 MG TABEC PO (09:24)
[2017-12-11] MEDS: metFORMIN 500 MG TAB PO ×2 (09:24→17:09)
[2017-12-11] MEDS: Magnesium Oxide 400 MG TAB PO ×2 (09:25→20:12)
[2017-12-11] MEDS: Cephalexin 500 MG CAP PO ×3 (09:25→20:12)
[2017-12-11] MEDS: Ondansetron O.D.T. 4 MG TABEF PO (10:48)
--- NOTE | 2017-12-11 11:07 | PDOC.CMPRO ---
- If Service Date Differs Date of service: 12/11/17 Time of Service: 11:07 Care Management Progress Note S/O: CM met with patient at the bedside and spoke with her daughter to provide update. CM contacted [facility] authorization is pending. Sherry does not want to go to any other facility. CM reviewed in network providers with patient and she declines referral. Sherry feels that she could discharge home with home health services nursing and PT. Her daughter is arranging for her to move to the first floor on one level. CM to meet with family when they arrive to review support resources and plan for discharge home if [facility] is unable to offer SNF. Sherry was started on betablocker for SVT. She continues to need medication titration and monitoring. Anticipate she will be ready for discharge on with new home health services, primary care follow up and oncology services. A:Sherry is a 62 year old female admitted with Sepsis recent diagnosis and treatment of rectal cancer. P:Sherry will return home vs SNF when medically ready per provider. She will continue her outpatient services through [facility]. She will have new home health nursing and PT, and resume palliative care with . She will transport with her daughter at time of discharge pending disposition.
--- NOTE | 2017-12-11 11:17 | CMPROGNOTE_ITS ---
- If Service Date Differs Date of service: 12/11/17 Time of Service: 11:07 Care Management Progress Note S/O: CM met with patient at the bedside and spoke with her daughter to provide update. [facility] authorization is pending. Sherry does not want to go to any other facility. CM reviewed in network providers with patient and she declines referral. Sherry feels that she could discharge home with home health services nursing and PT. Her daughter is arranging for her to move to the first floor on one level. CM to meet with family when they arrive to review support resources and plan for discharge home if [facility] is unable to offer SNF. Sherry was started on betablocker for SVT. She continues to need medication titration and monitoring. Anticipate she will be ready for discharge on with new home health services, primary care follow up and oncology services. A:Sherry is a 62 year old female admitted with Sepsis recent diagnosis and treatment of rectal cancer. P:Sherry will return home vs SNF when medically ready per provider. She will continue her outpatient services through [facility]. She will have new home health nursing and PT, and resume palliative care with . She will transport with her daughter at time of discharge pending disposition.
[2017-12-11] MEDS: Insulin Aspart 300 UNITS/3 ML PEN SC ×2 (12:11→17:09)
--- NOTE | 2017-12-11 14:57 | PT.INNT ---
Date of service: 12/11/17 Time of Service: 11:00 PT Notes 12/11/17 Patient refused morning PT session x2, stating that she was nauseous and I don't want to vomit in the hallway. We will attempt to resume PT services this afternoon. Mary Sotelo, [employer] ATTENDANT
--- NOTE | 2017-12-11 15:14 | PT.INTREAT ---
Date of service: 12/11/17 Time of Service: 15:14 PT Notes Inpatient Physical Therapy Treatment Note Date: 12/11/17 SUBJECTIVE: Patient states that she is feeling better this afternoon, and is agreeable to PT. OBJECTIVE: PAIN: No complaints of pain BED MOBILITY/TRANSFERS Sit-stand: S Stand-sit: S GAIT Assistive Device: FWW Weight bearing: Full Assist: S Distance: 200' Deviation: Standing rest x1 ASSESSMENT: Patient tolerated session without complaint. Patient tolerated a progression in gait distance with FWW support, well, requiring standing rest x1. Patient would benefit from continued conditioning for improved tolerance with gait training and other activities of daily living. PLAN: Continue with PTs POC TREATMENT CODE/TIME: 20 minutes; WILLIAM
--- NOTE | 2017-12-11 15:28 | PGE_ITS ---
Assessment and Plan (1) UTI (urinary tract infection): Current visit: Yes Status: Acute Day 7 of antibiotics, afebrile and no urinary symptoms. I am going to treat for a total of 10 days. (2) SVT (supraventricular tachycardia): Current visit: Yes Status: Acute Thus far no recurrence today. Seems to be tolerating metoprolol without drop in blood pressure. Continue current treatment regimen and if remains stable we can transition to long-acting metoprolol once daily. Continue to monitor rhythm on telemetry. (3) Anal cancer: Current visit: Yes Status: Chronic She is quite content with present pain regimen but I am concerned that if she goes home this will not be feasible with the frequent short acting use of morphine. I will continue to encourage her to consider switching to longer acting opiates for pain management. (4) Diabetes mellitus: Current visit: Yes Status: Chronic Blood sugar control adequate with current dose of metformin. Subjective Interval history since last seen: Mrs. Werner had rapid narrow complex tachyarrhythmia last evening that responded to 10 of IV diltiazem. She was then placed on low-dose metoprolol overnight and has not had any recurrence of SVT. She was unaware of the symptoms, no chest pain or dyspnea. Denies nausea abdominal pain. No rectal pain provided she is not moving around much. She is content with using fentanyl at the current dose and short acting morphine and is somewhat resistant to making any changes. No dysuria. No nausea. No diarrhea. Insurance is proving to be a barrier in terms of determining disposition. She may ultimately be returning home. Exam Narrative Exam Narrative: Lying in bed she is in no distress. She is easily arousable. She has spontaneous movement of all extremities. Heart rhythm is regular no S3 or S4 heard. Normal bowel sounds. Lungs are clear. 1+ edema both lower extremities without tenderness or skin breakdown. Objective Objective Clinical Data: Abnormal lab results 12/11/17 Range/Units 06:55 WBC 3.35 L (4.4-10.8) k/cumm RBC 3.16 L (4.00-5.20) m/cumm Hgb 8.6 L (12.0-15.5) g/dL Hct 28.1 L (36.0-46.0) % MCHC 30.6 L (32.0-36.0) g/dL RDW 17.6 H (11.7-14.6) % Absolute Lymphocytes 0.53 L (1.2-3.4) k/cumm Vital Signs Temperature 36.1 C L 12/11/17 09:15 Temperature Source Tympanic 12/11/17 09:15 Pulse 79 12/11/17 09:15 Pulse Rhythm Regular 12/11/17 09:15 Pulse 87 12/09/17 13:00 Respiratory Rate 16 12/11/17 09:15 Respiratory Effort Non-Labored 12/11/17 09:15 Respiratory Depth Normal 12/11/17 09:15 Respiratory Pattern Normal 12/11/17 09:15 Blood Pressure 102/62 12/11/17 09:15 Blood Pressure Mean 86 12/09/17 14:49 Blood Pressure Position Left Lateral 12/09/17 03:00 Pulse Oximetry 93 L 12/11/17 11:10 Oxygen Delivery Method Room Air 12/11/17 11:10 Oxygen Flow Rate 0 12/11/17 11:10 Pain Level 8 12/11/17 09:24 Comment 12/10/17 17:17 Intake & Output 12/10/17 12/11/17 12/11/17 23:59 11:59 23:59 Intake Total 970 / 970 400 / 400 Output Total 1900 / 1900 800 / 800 700 / 700 Balance -930 / -930 -400 / -400 -700 / -700 Weight 105.7 kg Intake: IV 10 Oral 960 / 960 400 / 400 Output: Urine 1900 / 1900 800 / 800 700 / 700 Other: Urine Color Yellow Yellow Urine Appearance Clear Clear Clear Urine Odor Normal None Stool Size Small Stool Characteristics Soft Soft Brown Voiding Methods Bedside Commode Bedside Commode Toilet Laboratory Results WBC 3.35 k/cumm (4.4-10.8) L 12/11/17 06:55 RBC 3.16 m/cumm (4.00-5.20) L 12/11/17 06:55 Hgb 8.6 g/dL (12.0-15.5) L 12/11/17 06:55 Hct 28.1 % (36.0-46.0) L 12/11/17 06:55 MCV 88.9 fL (80-95) 12/11/17 06:55 MCH 27.2 pg (27.0-33.0) 12/11/17 06:55 MCHC 30.6 g/dL (32.0-36.0) L 12/11/17 06:55 RDW 17.6 % (11.7-14.6) H 12/11/17 06:55 Plt Count 279 x1000/uL (130-400) 12/11/17 06:55 MPV 8.7 fL (8.0-11.0) 12/11/17 06:55 Immature Gran % 0.6 12/11/17 06:55 Neutrophils % 73.1 12/11/17 06:55 Lymphocytes % 15.8 12/11/17 06:55 Monocytes % 9.3 12/11/17 06:55 Eosinophils % 0.6 12/11/17 06:55 Basophils % 0.6 12/11/17 06:55 Absolute Neutrophils 2.45 k/cumm (1.2-6.7) 12/11/17 06:55 Band Neutrophils 2.0 % 12/07/17 11:24 Absolute Lymphocytes 0.53 k/cumm (1.2-3.4) L 12/11/17 06:55 Absolute Monocytes 0.31 k/cumm (0.11-0.7) 12/11/17 06:55 Absolute Eosinophils 0.02 k/cumm (0.0-0.7) 12/11/17 06:55 Absolute Basophils 0.02 k/cumm (0.0-0.2) 12/11/17 06:55 Differential Comment Manual differential 12/07/17 11:24 Atypical Lymphocytes 0 12/04/17 16:00 RBC Morphology See below 12/07/17 11:24 Polychromasia Present 12/04/17 16:00 Hypochromasia 2+ 12/07/17 11:24 Poikilocytosis 1+ 12/06/17 06:20 Basophilic Stippling Present 12/04/17 16:00 Microcytosis 2+ 12/07/17 11:24 Macrocytosis 1+ 12/04/17 16:00 Sodium 138 mmol/L (136-145) 12/10/17 06:45 Potassium 3.7 mmol/L (3.5-5.1) 12/10/17 06:45 Chloride 107 mmol/L (98-107) 12/10/17 06:45 Carbon Dioxide 22.5 mmol/L (21.0-32.0) 12/10/17 06:45 Anion Gap 8.5 mmol/L (3-11) 12/10/17 06:45 BUN 9 mg/dL (7-18) 12/10/17 06:45 Creatinine 1.00 mg/dL (0.55-1.02) 12/10/17 06:45 Estimated GFR/1.73 m2 55.82 (mL/min/1.73m2) 12/10/17 06:45 Glucose 128 mg/dL (70-100) H 12/10/17 06:45 Lactate 0.9 mmol/L (0.6-1.4) 12/05/17 08:25 Calcium 8.0 mg/dL (8.5-10.1) L 12/10/17 06:45 Magnesium 1.6 mg/dL (1.8-2.4) L 12/07/17 05:50 Total Bilirubin 0.4 mg/dL (0.2-1.0) 12/07/17 05:50 AST 43 U/L (15-37) H 12/07/17 05:50 ALT 25 U/L (12-78) 12/07/17 05:50 Alkaline Phosphatase 123 U/L (46-116) H 12/07/17 05:50 Troponin I < 0.02 ng/mL (0.00-0.06) 12/04/17 16:00 Total Protein 5.4 g/dL (6.4-8.2) L 12/07/17 05:50 Albumin 1.2 g/dL (3.4-5.0) L 12/07/17 05:50 TSH 1.68 uIU/mL (0.358-3.74) 12/04/17 18:00 Urine Color Yellow (Yellow) 12/04/17 16:50 Urine Clarity Cloudy 12/04/17 16:50 Urine pH 6.0 (5-8) 12/04/17 16:50 Ur Specific [place] 1.010 (1.005-1.025) 12/04/17 16:50 Urine Protein 100 mg/dL (Negative) H 12/04/17 16:50 Urine Ketones Negative mg/dL (Negative) 12/04/17 16:50 Urine Blood Moderate (Negative) H 12/04/17 16:50 Urine Nitrite Negative (Negative) 12/04/17 16:50 Urine Bilirubin Small (Negative) H 12/04/17 16:50 Urine Urobilinogen 1.0 EU/dL (Up TO 0.2) H 12/04/17 16:50 Ur Leukocyte Esterase Large (Negative) H 12/04/17 16:50 Urine RBC >50 (0-2) H 12/04/17 16:50 Urine WBC >50 HPF (0-5) 12/04/17 16:50 Ur Epithelial Cells Few HPF (Negative) 12/04/17 16:50 Urine Crystals Negative HPF (Negative) 12/04/17 16:50 Urine Bacteria Many HPF (Negative) 12/04/17 16:50 Urine Casts Negative LPF (Negative) 12/04/17 16:50 Urine Mucus Heavy (Negative) 12/04/17 16:50 Urine Other Negative (Negative) 12/04/17 16:50 Ur Culture Indicated? Yes 12/04/17 16:50 Urine Glucose Negative mg/dL (Negative) 12/04/17 16:50 Patient ABO/Rh O Positive 12/06/17 16:40 Antibody Screen Negative 12/06/17 16:40 Crossmatch See Detail 12/06/17 16:40
[2017-12-11] MEDS: Normal Saline Flush 10 ML SYR IVP (20:12)
[2017-12-11] MEDS: Simvastatin 10 MG TAB PO (22:43)
[2017-12-12 01:22] VITALS: BP 101/51; PULSE 93; RESP 20; TEMP 36.5; O2SAT 97
[2017-12-12] MEDS: Heparin 5,000 UNITS/ML VIAL 5000 UNITS SC (05:22)
[2017-12-12 07:17] VITALS: PULSE 87
[2017-12-12] MEDS: Normal Saline Flush 10 ML SYR IVP (08:15)
[2017-12-12] MEDS: Pantoprazole 40 MG TABCR PO (08:15)
[2017-12-12] MEDS: Cephalexin 500 MG CAP PO (08:16)
[2017-12-12] MEDS: Metoprolol CR 50 MG TABCR PO (08:16)
[2017-12-12] MEDS: metFORMIN 500 MG TAB PO (08:16)
[2017-12-12] MEDS: Magnesium Oxide 400 MG TAB PO (08:16)
[2017-12-12] MEDS: Aspirin E.C. 81 MG TABEC PO (08:16)
[2017-12-12] MEDS: Insulin Aspart 300 UNITS/3 ML PEN SC (08:24)
[2017-12-12 09:09] VITALS: PULSE 90
--- NOTE | 2017-12-12 09:31 | PT.INTREAT ---
Date of service: 12/12/17 Time of Service: 09:31 PT Notes Inpatient Physical Therapy Treatment Note Date: 12/12/17 SUBJECTIVE: Sherry is agreeable to PT stating let's just get this over with. OBJECTIVE: PAIN: Patient c/o rectal pain during gait training BED MOBILITY/TRANSFERS Supine-sit: I with HOB flat Sit-supine: I with HOB flat Sit-stand: I Stand-sit: I GAIT Assistive Device: FWW Weight bearing: Full Assist: S Distance: 200' STAIRS: Up/down 6x4 and 4x6 using 1 rail/SPC and a step-over with supervision. Patient requires extra time to complete stair training due to c/o fatigue. ASSESSMENT: Patient tolerated session well with c/o increased fatigue with gait and stair training. Patient was able to demonstrate independence with bed mobility and transfers. PLAN: Continue with PT's POC TREATMENT CODE/TIME: 25 minutes; TAx2
[2017-12-12 09:40] VITALS: BP 108/61; PULSE 88; RESP 17; TEMP 36; O2SAT 95
--- NOTE | 2017-12-12 11:12 | DSE_ITS ---
Date of service: 12/12/17 Time of Service: 11:09 DS: Diagnosis Discharge Diagnosis (1) UTI (urinary tract infection): Status: Acute (2) SVT (supraventricular tachycardia): Status: Acute (3) Anal cancer: Status: Chronic (4) Diabetes mellitus: Status: Chronic (5) Acute kidney failure: Status: Acute (6) Hypomagnesemia: Status: Acute (7) Anemia: Status: Acute (8) Hypothyroidism: Status: Chronic (9) Peripheral edema: Status: Acute (10) Cancer related pain: Status: Chronic (11) Sepsis: Status: Acute Discharge Plan Disposition Patient Disposition: [facility] SWING BED LEVEL 2 Condition: Improving Discharge Details Chief Complaint: GenMedical Reason For Visit: SEPSIS,URINARY TRACT INFECTION Admit Date/Time: 12/04/17 20:36 Admit Provider: Morgan Carpio Attending Provider: Morgan Carpio Primary Care Provider: Diane Leblanc ED Provider: Bianka Quiroz [facility] Hospital Course Hospital Course: Mrs. Werner is a 62-year-old woman who was admitted from the [facility], after initiating chemotherapy and radiation therapy the day prior. She presented back to the [facility] complaining of fevers chills and malaise, without complaints of cough chest pain dysuria nausea vomiting or diarrhea. She had had ongoing pain in the inguinal area secondary to her recently diagnosed anal cancer. She was febrile, hypotensive, with lactic acidosis, hyponatremia and leukocytosis. Cultures were obtained and she was started on broad-spectrum antibiotics pending results. She was admitted to the ICU for fluid resuscitation and pressor support because of her sepsis presentation. With aggressive fluid resuscitation and pressors her blood pressure stabilized. She had bouts of SVT that resolved without intervention initially. Her blood cultures remain sterile. Her urine culture grew E. coli resistant to fluoroquinolones, sensitive to all other antibiotics. She was transitioned off of parenteral antibiotics to oral cephalexin which she will complete in another 2 days. She continued to have brief runs of SVT and isolated short asymptomatic runs of wider complex tachyarrhythmias. Initially her blood pressure was too low to allow treatment and she was asymptomatic. However, as she overall improved, the episodes of SVT became longer and her blood pressure improved. She had a more protracted episode with a heart rate over 200, received 10 mg of IV diltiazem with conversion back to sinus rhythm. She was then started on metoprolol titrated to the discharge dose of 50 mg once daily with good tolerance?blood pressure fine and no recurrence of SVT on telemetry for another 48 hours. She had continued pain from her anal cancer that was treated with resumption of her outpatient dose of fentanyl and as needed doses of short acting morphine. On the day of transfer to swing bed her pain medicine is being adjusted with the addition of long-acting morphine in hopes of decreasing her need for short acting morphine. She had no adverse effects from the opiates and good pain control overall. Her blood sugars were mildly elevated during her hospitalization. She has not been started back on her sulfonylurea and metformin was restarted at half her outpatient dose. She had acute kidney injury which steadily improved throughout her hospitalization. She also had significant peripheral edema as a result of fluid resuscitation and has been spontaneously diuresing without the use of diuretics. Because of her hypotension, her JOSÉ LUIS inhibitor was stopped and has not been restarted. Her blood pressure has been slowly creeping up but adequately managed with beta-willian alone. Her magnesium level was slightly low, improving with oral supplementation.. She had a mild bump in her creatinine to 1.87, down to 1.02 days prior to her transfer to swing bed. She had a hemoglobin moses of 6.7 for which she received 2 units of packed red blood cells. Her hemoglobin remained stable at 8.6 thereafter. No changes were made to her chronic thyroid dose. Medication changes made to her chronic outpatient medications: Glipizide discontinued, lisinopril discontinued, metformin dose cut in half. New medication metoprolol, extended release morphine She is being discharged to swing bed level 2 as she has met her PT goals. She is still debilitated following this significant illness and she currently has a second floor apartment. Family members are in the process of getting her a first floor apartment. She will continue with chemotherapy and radiation treatment for her anal cancer as determined by the oncology team. Home Meds and New Rx's Prescriptions: Continue aspirin [Ecotrin Low Strength] 81 MG tablet,delayed release (DR/EC) 1 tab PO DAILY RF: 0 acetaminophen 500 MG tablet 1 tab PO PRN RF: 0 calcium carbonate 500 MG tablet 1 tab.chew PO BID RF: 0 blood-glucose meter 1 EACH misc 1 ea Miscellaneous DAILY Qty: 1 RF: 0 ascorbic [id number] [Emergen-C] 1,000 MG powder effervescent in packet 1 packet PO PRN RF: 0 fluocinolone [Synalar] 120 GM ointment 1 applic Topical BID Qty: 1 RF: 2 simvastatin [Zocor] 10 MG tablet 1 tab PO HS Qty: 90 RF: 4 lancets 1 EACH misc 1 ea Miscellaneous BID Qty: 200 RF: 4 blood sugar diagnostic [Blood Glucose Test] 1 EACH strip 1 ea Miscellaneous BID Qty: 200 RF: 4 levothyroxine [Synthroid] 137 MCG tablet 1 tab PO DAILY Qty: 90 RF: 4 polyethylene glycol 3350 17 gram/dose powder 17 gm PO DAILY PRN (Reason: constipation) Qty: 255 RF: 2 fentanyl 12 mcg/hr Patch 72 Hour 12.5 mcg Transdermal DIRECTED RF: 0 naloxone [Narcan] 4 mg/actuation spray,non-aerosol 1 spray JORGE ONCE PRN (Reason: opioid overdose) Qty: 2 RF: 0 ondansetron [Zofran ODT] 4 mg Tablet,Disintegrating 4 mg PO PRN PRNRF: 0 Discontinued metformin 1,000 MG tablet 1 tab PO BID Qty: 180 RF: 4 lisinopril 20 MG tablet 20 mg PO DAILY Qty: 90 RF: 3 glipizide 2.5 MG tablet extended release 24hr 2.5 - 5 mg PO DAILY RF: 0 Discharge Instructions Stand Alone Forms: Nursing Discharge Form Referrals: Verenice Huggins MD [ [facility] STAFF PHYSICIAN] - 12/12/17 9:00 am Activity:: Activity as Tolerated Equipment/Supplies:: No Equipment Needed Diet:: Carb Counting Discharge Orders Discharge Orders: Discharge Order (Routine); Ordered 12/12/17 Ordered By: Chris Trotter Discharge Data Discharge Date/Time-TO BE ENTERED AT DEPARTURE: 12/12/17 10:25 Exam Narrative Exam Narrative: She is in good spirits, able to sit independently and transfer independently. Slightly pale. Sclera anicteric. Dentures up and down. No oral lesions. No JVD. Lungs good aeration no wheeze crackles or rub. Heart rhythm presently regular, 1/6 late systolic murmur, no diastolic murmur S3 or S4. Abdomen obese soft nontender with normal bowel sounds. Rectal area has increased pigmentation in the perirectal area with no open fissures and no active bleeding. Extremities have 1-2+ edema at the ankles bilaterally, warm, 1 + pulses in both feet. She has symmetric movement of all extremities. Oriented x4. DS: Data Vitals/I&O Vitals and I&O: Vital Signs Temperature 36 C L 12/12/17 09:40 Temperature Source Tympanic 12/12/17 09:40 Pulse 88 12/12/17 09:40 Pulse Rhythm Regular 12/12/17 08:00 Pulse 87 12/09/17 13:00 Respiratory Rate 17 12/12/17 09:40 Respiratory Effort Non-Labored 12/12/17 08:00 Respiratory Depth Normal 12/12/17 08:00 Respiratory Pattern Normal 12/12/17 08:00 Blood Pressure 108/61 12/12/17 09:40 Blood Pressure Mean 86 12/09/17 14:49 Blood Pressure Position Left Lateral 12/09/17 03:00 Pulse Oximetry 95 12/12/17 09:40 Oxygen Delivery Method Room Air 12/12/17 09:40 Oxygen Flow Rate 0 12/12/17 09:40 Pain Level 7 12/12/17 09:40 Comment 12/11/17 16:30 Intake & Output 12/11/17 12/11/17 12/12/17 11:59 23:59 11:59 Intake Total 400 / 400 790 / 790 Output Total 800 / 800 1999 / 1999 1500 / 1500 Balance -400 / -400 -2000 / -2000 -710 / -710 Weight 105.7 kg 103.6 kg Intake: Oral 400 / 400 790 / 790 Output: Urine 800 / 800 1999 / 2000 1500 / 1500 Other: Urine Color Yellow Yellow Yellow Urine Appearance Clear Clear Cloudy Urine Odor None Normal Normal Stool Size Small Moderate Small Stool Characteristics Soft Soft Liquid Brown Brown Brown Voiding Methods Bedside Commode Bedside Commode Diaper Incontinent Pending studies at discharge: INJECT/INFUSE NEC (10/16/96) WBC 3.35 k/cumm (4.4-10.8) L 12/11/17 06:55 RBC 3.16 m/cumm (4.00-5.20) L 12/11/17 06:55 Hgb 8.6 g/dL (12.0-15.5) L 12/11/17 06:55 Hct 28.1 % (36.0-46.0) L 12/11/17 06:55 MCV 88.9 fL (80-95) 12/11/17 06:55 MCH 27.2 pg (27.0-33.0) 12/11/17 06:55 MCHC 30.6 g/dL (32.0-36.0) L 12/11/17 06:55 RDW 17.6 % (11.7-14.6) H 12/11/17 06:55 Plt Count 279 x1000/uL (130-400) 12/11/17 06:55 MPV 8.7 fL (8.0-11.0) 12/11/17 06:55 Immature Gran % 0.6 12/11/17 06:55 Neutrophils % 73.1 12/11/17 06:55 Lymphocytes % 15.8 12/11/17 06:55 Monocytes % 9.3 12/11/17 06:55 Eosinophils % 0.6 12/11/17 06:55 Basophils % 0.6 12/11/17 06:55 Absolute Neutrophils 2.45 k/cumm (1.2-6.7) 12/11/17 06:55 Band Neutrophils 2.0 % 12/07/17 11:24 Absolute Lymphocytes 0.53 k/cumm (1.2-3.4) L 12/11/17 06:55 Absolute Monocytes 0.31 k/cumm (0.11-0.7) 12/11/17 06:55 Absolute Eosinophils 0.02 k/cumm (0.0-0.7) 12/11/17 06:55 Absolute Basophils 0.02 k/cumm (0.0-0.2) 12/11/17 06:55 Differential Comment Manual differential 12/07/17 11:24 Atypical Lymphocytes 0 12/04/17 16:00 RBC Morphology See below 12/07/17 11:24 Polychromasia Present 12/04/17 16:00 Hypochromasia 2+ 12/07/17 11:24 Poikilocytosis 1+ 12/06/17 06:20 Basophilic Stippling Present 12/04/17 16:00 Microcytosis 2+ 12/07/17 11:24 Macrocytosis 1+ 12/04/17 16:00 Sodium 138 mmol/L (136-145) 12/10/17 06:45 Potassium 3.7 mmol/L (3.5-5.1) 12/10/17 06:45 Chloride 107 mmol/L (98-107) 12/10/17 06:45 Carbon Dioxide 22.5 mmol/L (21.0-32.0) 12/10/17 06:45 Anion Gap 8.5 mmol/L (3-11) 12/10/17 06:45 BUN 9 mg/dL (7-18) 12/10/17 06:45 Creatinine 1.00 mg/dL (0.55-1.02) 12/10/17 06:45 Estimated GFR/1.73 m2 55.82 (mL/min/1.73m2) 12/10/17 06:45 Glucose 128 mg/dL (70-100) H 12/10/17 06:45 Lactate 0.9 mmol/L (0.6-1.4) 12/05/17 08:25 Calcium 8.0 mg/dL (8.5-10.1) L 12/10/17 06:45 Magnesium 1.6 mg/dL (1.8-2.4) L 12/07/17 05:50 Total Bilirubin 0.4 mg/dL (0.2-1.0) 12/07/17 05:50 AST 43 U/L (15-37) H 12/07/17 05:50 ALT 25 U/L (12-78) 12/07/17 05:50 Alkaline Phosphatase 123 U/L (46-116) H 12/07/17 05:50 Troponin I < 0.02 ng/mL (0.00-0.06) 12/04/17 16:00 Total Protein 5.4 g/dL (6.4-8.2) L 12/07/17 05:50 Albumin 1.2 g/dL (3.4-5.0) L 12/07/17 05:50 TSH 1.68 uIU/mL (0.358-3.74) 12/04/17 18:00 Urine Color Yellow (Yellow) 12/04/17 16:50 Urine Clarity Cloudy 12/04/17 16:50 Urine pH 6.0 (5-8) 12/04/17 16:50 Ur Specific [place] 1.010 (1.005-1.025) 12/04/17 16:50 Urine Protein 100 mg/dL (Negative) H 12/04/17 16:50 Urine Ketones Negative mg/dL (Negative) 12/04/17 16:50 Urine Blood Moderate (Negative) H 12/04/17 16:50 Urine Nitrite Negative (Negative) 12/04/17 16:50 Urine Bilirubin Small (Negative) H 12/04/17 16:50 Urine Urobilinogen 1.0 EU/dL (Up TO 0.2) H 12/04/17 16:50 Ur Leukocyte Esterase Large (Negative) H 12/04/17 16:50 Urine RBC >50 (0-2) H 12/04/17 16:50 Urine WBC >50 HPF (0-5) 12/04/17 16:50 Ur Epithelial Cells Few HPF (Negative) 12/04/17 16:50 Urine Crystals Negative HPF (Negative) 12/04/17 16:50 Urine Bacteria Many HPF (Negative) 12/04/17 16:50 Urine Casts Negative LPF (Negative) 12/04/17 16:50 Urine Mucus Heavy (Negative) 12/04/17 16:50 Urine Other Negative (Negative) 12/04/17 16:50 Ur Culture Indicated? Yes 12/04/17 16:50 Urine Glucose Negative mg/dL (Negative) 12/04/17 16:50 Patient ABO/Rh O Positive 12/06/17 16:40 Antibody Screen Negative 12/06/17 16:40 Crossmatch See Detail 12/06/17 16:40
--- NOTE | 2017-12-12 11:12 | OT.INTREAT ---
Date of service: 12/12/17 Time of Service: 10:50 Occupational Therapy Notes Occupational Therapy Inpatient Treatment Note Date: 12/12/17 SUBJECTIVE: Pt on toilet when OT arrived. Pt reports that she is tired and slept ok last night. Pt agreeable to OT session stating that she appreciates all the help. OBJECTIVE: FUNCTIONAL MOBILITY Rolling L/R: (I) Supine-sit: S Sit-supine: S Sit-stand: S, FWW Stand-sit: S, FWW Chair-bed: S, FWW TOILETING: Pt was provided education last session on adaptive equipment to increase (I) with wiping post bowel movements. Pt states that she is still unable to perform wiping her self. OT provided mod (A) for wiping technique. Assist: Mod (A) for wiping post bowel movement. THEREX: Initiation of upper extremity strengthening prescription today to increase strength in UE and (I)/ activity tolerance in ADL routine. Pt provided written and illustrated handout with exercises to be performed 10x, 2x/day. Pt provided red thera band for shoulder abduction, flexion and bicep curls. Pt also performed chair pushups to increase safe positioning and transitioning when performing functional movements and ADL tasks. ASSESSMENT: Pt required decreased verbal cues to perform toileting routine. Still requires mod (A) for wiping. In supine pt was able to (I) doff socks without verbal cues. She states that she is unsure if she can perform this to put them on but denies education of sock aid because she feels once her swelling is gone she will be able to perform. OT provided less verbal cues throughout and pt demonstrated ideal technique for UE strengthening prescription. Pt at this time is able to perform majority of ADL routine with S. Pt would benefit from education in safe functional mobility for bathing. PLAN: Plan is for pt to go to Swing rehab status within the next couple days. OT will educate pt on safe functional mobility for bathing routine. TREATMENT CODES/TIME: 15 min, TAx1
--- NOTE | 2017-12-12 18:54 | PDOC.CMPRO ---
- If Service Date Differs Date of service: 12/12/17 Time of Service: 18:54 Care Management Progress Note S/O: CM reviewed with patient options for discharge disposition and benefits. Sherry is tearful and states that she is not ready to return home today. Her daughter is moving her to a ground floor apartment which should be ready to move into over the next two weeks. PT is discharging patient from services and report that she has met her goals for both OT and PT. Sherry is feeling weak related to recent treatments with radiation and chemotherapy and recent admission for sepsis. She feels her pain is being addressed however states it continues to be a 8 out of 10. Sherry would like to remain at [facility] until her daughter is able to move all of her belongings to the ground floor apartment. CM has reviewed SB2 with Sherry and reviewed with that it would be self pay, which she agrees to. CM will complete the financial assistance application with Sherry. CM reviewed plan with Sherry's daughter and team and the agreement is to admit Sherry to [facility]2 at this time. Goal is two weeks and she will be discharged with Home health PT and OT at time of discharge. SB contract reviewed and compelled with patient. A: Sherry is a 62 year old female admitted with sepsis after recent treatment for rectal cancer. P: SB2 for two weeks while safe discharge plan is being determined. Sherry daughter has retained a ground floor apartment and is process of preparing it for Sherry. Sherry will have new home health services at time of discharge including PT/OT she will also benefit from [employer]PLICATION[employer]EL[employer] to address resources and psychosocial needs in the community. Palliative will continue to follow.
--- NOTE | 2017-12-12 19:03 | CMPROGNOTE_ITS ---
- If Service Date Differs Date of service: 12/12/17 Time of Service: 18:54 Care Management Progress Note S/O: CM reviewed with patient options for discharge disposition and benefits. Sherry is tearful and states that she is not ready to return home today. Her daughter is moving her to a ground floor apartment which should be ready to move into over the next two weeks. PT is discharging patient from services and report that she has met her goals for both OT and PT. Sherry is feeling weak related to recent treatments with radiation and chemotherapy and recent admission for sepsis. She feels her pain is being addressed however states it continues to be a 8 out of 10. Sherry would like to remain at [facility] until her daughter is able to move all of her belongings to the ground floor apartment. CM has reviewed SB2 with Sherry and reviewed with that it would be self pay, which she agrees to. CM will complete the financial assistance application with Sherry. CM reviewed plan with Sherry's daughter and team and the agreement is to admit Sherry to SB2 at this time. Goal is two weeks and she will be discharged with Home health PT and OT at time of discharge. SB contract reviewed and compelled with patient. A: Sherry is a 62 year old female admitted with sepsis after recent treatment for rectal cancer. P: SB2 for two weeks while safe discharge plan is being determined. Sherry daughter has retained a ground floor apartment and is process of preparing it for Sherry. Sherry will have new home health services at time of discharge including PT/OT she will also benefit from [employer] to address resources and psychosocial needs in the community. Palliative will continue to follow.
[2018-01-07] MEDS: Normal Saline Flush 10 ML SYR IVP (13:51)
== END 2017-12-12 10:25 | disposition swing bed (61) | DRG 871 ==
LOC: ER 16:09 → ICU 21:53 → MS 12-30 14:26
PROVIDERS: Family Medicine; Internal Medicine; Admitting Provider Family Medicine; Emergency Provider Physician Assistant; Visit Provider Internal Medicine
DX: R65.21 Severe sepsis with septic shock (principal); N39.0 Urinary tract infection, site not specified; N17.9 Acute kidney failure, unspecified; C21.0 Malignant neoplasm of anus, unspecified; E87.1 Hypo-osmolality and hyponatremia; I47.1 Supraventricular tachycardia; G89.3 Neoplasm related pain (acute) (chronic); F17.210 Nicotine dependence, cigarettes, uncomplicated; B96.20 Unspecified Escherichia coli [E. coli] as the cause of diseases classified elsewhere; D63.0 Anemia in neoplastic disease; Z73.89 Other problems related to life management difficulty; Z16.23 Resistance to quinolones and fluoroquinolones; E83.42 Hypomagnesemia; E11.9 Type 2 diabetes mellitus without complications; Z79.84 Long term (current) use of oral hypoglycemic drugs; R60.9 Edema, unspecified; E89.0 Postprocedural hypothyroidism; I10 Essential (primary) hypertension; K21.9 Gastro-esophageal reflux disease without esophagitis; A41.9 Sepsis, unspecified organism
CPT/HCPCS: 36415; 36556; 36592; 71045; 80048; 80053; 86850; 86900; 86901; 86920; 87040; 87077; 93005; 96361; 96365; 96366; 96368; 96375; 97110; 97162; 97166; 97530; 97535; 99221; 99223; 99232; 99233; 99239; 99255; 99285; J1650; 71046; 81003; 81015; 83605; 83735; 84443; 84484; 85025; 87086; 87186; 93010; J0131; J1644; J2405; J2543; J3475; P9016

== ENCOUNTER 2017-12-12 11:50 | Inpatient (IN) | payer OTHER, SELFPAY ==
--- NOTE | 2017-12-12 09:29 | PHARADMIT ---
Addendum entered by Rubi Jackson 12/24/17 09:32: VS okay, no labs weight-95.1(up) no med changes discharge tomorrow Original Note: Addendum entered by Rubi Jackson 12/23/17 11:32: BP 95/58 other VS okay, no labs pt to have chemo and radiation M-F this week per nursing no med changes discharge Saturday to home Original Note: Addendum entered by Rubi Jackson 12/23/17 11:32: Original Note: Addendum entered by Guilherme Gonzalez III 12/20/17 11:32: VS-OK, FSBS-184, No Labs, Getting radiation Saturday thru Saturday. [facility]Own Capecitabine on hold till Saturday, be sure patient is to receive radiation on SaturdayDecember 23 Original Note: Addendum entered by Guilherme Gonzalez III 12/18/17 14:33: Receiving radiation today. VS-OK pain: 10/18 SCr-0.97 Mag-1.8 K+3.7 H&H-up 9.9/32.2 Plts-190 Wgt-89.9kg BM yesterday No changes SWing Bed patient Original Note: Addendum entered by Rubi Jackson 12/17/17 09:17: pt. feeling more run down per morning report VS okay, no labs pt to have chemo and radiation M-F this week per nursing no med changes, labs ordered for tomorrow Original Note: Addendum entered by Rubi Jackson 12/16/17 17:11: BP-144/84 HR-92 other VS okay no labs pt had chemo doses this morning and radiation today at [facility] no med changes Original Note: Addendum entered by Guilherme Gonzalez III 12/15/17 14:30: Patient has tentatively been scheduled for Radiation tomorrow, (Saturday) at [facility]-n. She is receive her own medication (Xeloda ) before the procedure. The Xeloda (2 vials 500mg & 150mg) are in the pharmacy to be dispense IF she is receiving Radiation. Do not dispense until her appointment is confirmed. VS-OK H&H-up No changes Original Note: Addendum entered by Guilherme Gonzalez III 12/14/17 11:57: MD considering restarting PT & OT. VS-OK K+3.4 SCr-0.79 H&H-up 8.5/27.6 Keklex continues May go to Swing Bed-2 if PT/OT not needed Original Note: Addendum entered by Guilherme Gonzalez III 12/13/17 12:33: Swing Bed patient here for 7 days, Has Rectal Cancer and is post E.coli sepsis recovery. VS-OK pain: /10 K+3.1 Mag-1.5 H&H-8.0/26.2 Plts-218, FSBS-218 BM today. Oral Potassium ordered. On Heparin SQ Keflex PO continues. Original Note: Admission Pharmacy Clinical Review SEPSIS, UTI, EDEMA (Swing Bed) BELOW IS THE ACUTE ADMISSION PHARMACY CLINICAL INTERVENTIONS: Pharmacy Note Subjective MD to transfer patient to med/Surg later today. Objective VS-OK pain:10/18 K+3.9 SCr-1.11 H&H-8.4/28.1 FSBS-150 ANC-2.46 WBC- 3.14 Had BM Assessment E-coli UTI,,,Zosyn changed to Kefelx PO Protonix to PO Plan Patient experienced a run of SVT over night, MD to evaluate. CM note no beds at [facility] till later in the week. Original Note: Addendum entered by Lauren Schmitz 12/07/17 11:25: Pharmacy Note Subjective palliative consult done , possible discharge to SNF when ready Objective afebrile, bp 87/49, Mag 1.6, FS 158 Assessment norepinephrine drip paused yesterday, per nursing it may be restarted today. pip/tazo continues Plan expect mag replacement order, make norepi infusion if restarted Original Note: Addendum entered by Guilherme Gonzalez III 12/06/17 16:45: Pharmacy Note Subjective Newly diagnosed Rectal CA, Urosepsis and can not maintain BP. Norepinephrine has not been weaned. Immuno-compromised from chemo Objective BP-87/38 Na-129 K+4.4 SCr-1.33 H&H-7.4/24.0 WBC-10.68 Plts-ok Had BM Wgt-up 96.5kg Assessment Heparin SQ, On Zosyn for e-coli Tylenol added for pain, MD would like her on less morphine. Fentanyl Patch (home med) re-started Plan MD was considering adding Vanco Original Note: Admission Pharmacy Clinical Review SEPSIS, UTI, SHOCK Code Status Full Code Current Weight Wgt-97 kg Renally Cleared and Narrow Therapeutic Index Meds CrCl~ 30.5 mL/min Meds-OK QTc Value / Action Taken na BP Control, Fever BP- 118/47 Tmax- 36.4C Electrolytes reviewed Na- 131 K+5.1 Mag-2.0 DVT Prophylaxis Lovenox 30mg, ASA Opiate Usage / Scheduled Bowel Regimen Ordered Yes No Plt/SCr for Heparin / Enoxaparin Plts-568 SCr-1.54 INR for Warfarin na H/H stable, WBC/Bands H&H- 8.3/26.9 WBC- 18.36 Antibiotic appropriateness Zosyn, Rocephin Both X 1 Cultures and Sensitivities Blood, Urine-Pending Surgical ABX d/c within 24 hr na DM control / Insulin Dosing BG- 234 Aspart Heart Failure (Check EF%) (JOSÉ LUIS's, B-Block, Diuretics) Levophed drip, IV to PO Switch No Home Meds Reviewed Yes Home Meds Not Ordered Lisinopril, Metformin, Glipizide, Vit-C, Calcium, Fentanyl Patch, Comments Initialized on 12/05/17 08:49 - END OF NOTE
--- NOTE | 2017-12-12 11:53 | W.PM.HP.N ---
Date of service: 12/12/17 Time of Service: 11:55 Assessment and Plan (1) Debility: Current visit: Yes Status: Acute As she has met her PT goals, will be sure nursing staff encourages her to get up and maintain functional mobility in anticipation of returning to her own home. (2) UTI (urinary tract infection): Current visit: Yes Status: Acute 2 more days of oral first generation cephalosporin and then she will have completed treatment. (3) Cancer related pain: Current visit: Yes Status: Chronic Monitor response to present topical fentanyl, the new addition of 15 mg twice daily of extended release morphine with continued use of as needed short-acting morphine. (4) DVT prophylaxis: Current visit: Yes Status: Acute Continue heparin subcutaneously (5) Hypomagnesemia: Current visit: Yes Status: Acute Continue oral supplement and recheck magnesium level. (6) SVT (supraventricular tachycardia): Current visit: Yes Status: Acute Continue metoprolol extended release, monitor clinically for any recurrent tachycardia. (7) Anemia: Current visit: Yes Status: Acute Periodically recheck CBC. (8) Hypothyroidism: Current visit: Yes Status: Chronic Continue present thyroid dose. (9) Gastroesophageal reflux disease: Current visit: Yes Status: Chronic Continue PPI. (10) Essential hypertension: Current visit: No Status: Chronic Follow on present dose of metoprolol. Renal function is such that her blood pressure goes up, lisinopril could be restarted. (11) Diabetes mellitus: Current visit: No Status: Chronic Follow blood sugars on present dose of metformin. This is half her outpatient dose and glipizide was discontinued. History of Present Illness Narrative: Mrs. Werner is a 62-year-old woman who was admitted to acute hospital stay from the [facility], after initiating chemotherapy and radiation therapy the day prior. She presented back to the [facility] complaining of fevers chills and malaise, without complaints of cough chest pain dysuria nausea vomiting or diarrhea. She had had ongoing pain in the inguinal area secondary to her recently diagnosed anal cancer. She was febrile, hypotensive, with lactic acidosis, hyponatremia and leukocytosis. Cultures were obtained and she was started on broad-spectrum antibiotics pending results. She was admitted to the ICU for fluid resuscitation and pressor support because of her sepsis presentation. With aggressive fluid resuscitation and pressors her blood pressure stabilized. She had bouts of SVT that resolved without intervention initially. Her blood cultures remain sterile. Her urine culture grew E. coli resistant to fluoroquinolones, sensitive to all other antibiotics. She was transitioned off of parenteral antibiotics to oral cephalexin which she will complete in another 2 days. She continued to have brief runs of SVT and isolated short asymptomatic runs of wider complex tachyarrhythmias. Initially her blood pressure was too low to allow treatment and she was asymptomatic. However, as she overall improved, the episodes of SVT became longer and her blood pressure improved. She had a more protracted episode with a heart rate over 200, received 10 mg of IV diltiazem with conversion back to sinus rhythm. She was then started on metoprolol titrated to the discharge dose of 50 mg once daily with good tolerance?blood pressure fine and no recurrence of SVT on telemetry for another 48 hours. She had continued pain from her anal cancer that was treated with resumption of her outpatient dose of fentanyl and as needed doses of short acting morphine. On the day of transfer to swing bed her pain medicine is being adjusted with the addition of long-acting morphine in hopes of decreasing her need for short acting morphine. She had no adverse effects from the opiates and good pain control overall. Her blood sugars were mildly elevated during her hospitalization. She has not been started back on her sulfonylurea and metformin was restarted at half her outpatient dose. She had acute kidney injury which steadily improved throughout her hospitalization. She also had significant peripheral edema as a result of fluid resuscitation and has been spontaneously diuresing without the use of diuretics. Because of her hypotension, her JOSÉ LUIS inhibitor was stopped and has not been restarted. Her blood pressure has been slowly creeping up but adequately managed with beta-willian alone. Her magnesium level was slightly low, improving with oral supplementation.. She had a mild bump in her creatinine to 1.87, down to 1.02 days prior to her transfer to swing bed. She had a hemoglobin moses of 6.7 for which she received 2 units of packed red blood cells. Her hemoglobin remained stable at 8.6 thereafter. No changes were made to her chronic thyroid dose. Medication changes made to her chronic outpatient medications: Glipizide discontinued, lisinopril discontinued, metformin dose cut in half. New medication metoprolol, extended release morphine She is being admitted to swing bed level 2 as she has met her PT goals. She is still debilitated following this significant illness and she currently has a second floor apartment. Family members are in the process of getting her a first floor apartment. She will continue with chemotherapy and radiation treatment for her anal cancer as determined by the oncology team. Review of Systems Review of Systems All systems reviewed & are unremarkable except as noted in HPI and below Meds Home Medications Medication Instructions Recorded Confirmed Type acetaminophen 1 tab PO PRN 06/29/12 12/04/17 History aspirin [Ecotrin Low Strength] 1 tab PO DAILY 06/29/12 12/04/17 History calcium carbonate 1 tab.chew PO BID 06/29/12 12/04/17 History blood-glucose meter #1 ea 10/04/14 12/04/17 History ascorbic [id number] 1 packet PO PRN 07/26/15 12/04/17 History [Emergen-C] fluocinolone [Synalar] 1 applic TOPICAL BID #1 script 03/28/16 12/04/17 History simvastatin [Zocor] 1 tab PO HS #90 tab-cap 11/26/16 12/04/17 Rx lancets #200 ea 02/13/17 12/04/17 Rx blood sugar diagnostic [Blood #200 strip 03/28/17 12/04/17 Rx Glucose Test] levothyroxine [Synthroid] 1 tab PO DAILY #90 tab-cap 05/14/17 12/04/17 Rx polyethylene glycol 3350 17 17 gm PO DAILY PRN #255 gm 11/18/17 12/04/17 Rx gram/dose oral powder fentanyl 12.5 mcg TRANSDERMAL DIRECTED 12/02/17 12/04/17 History naloxone [Narcan] 1 spray JORGE ONCE PRN #2 each 12/02/17 12/04/17 Rx ondansetron [Zofran ODT] 4 mg PO PRN PRN 12/04/17 12/04/17 History Allergies Allergy/AdvReac Type Severity Reaction Status Date / Time codeine Allergy Unverified 12/04/17 15:29 copper Allergy Skin Rash Unverified 12/04/17 15:29 latex Allergy Unverified 12/04/17 15:29 lidocaine Allergy Itching Unverified 12/04/17 15:29 oxycodone AdvReac Unverified 12/05/17 12:56 Exam Narrative Exam Narrative: She is in good spirits, able to sit independently and transfer independently. Slightly pale. Sclera anicteric. Dentures up and down. No oral lesions. No JVD. Lungs good aeration no wheeze crackles or rub. Heart rhythm presently regular, 1/6 late systolic murmur, no diastolic murmur S3 or S4. Abdomen obese soft nontender with normal bowel sounds. Rectal area has increased pigmentation in the perirectal area with no open fissures and no active bleeding. Extremities have 1-2+ edema at the ankles bilaterally, warm, 1+ pulses in both feet. She has symmetric movement of all extremities. Oriented x4.
--- NOTE | 2017-12-12 12:02 | HPE_ITS ---
Date of service: 12/12/17 Time of Service: 11:55 Assessment and Plan (1) Debility: Current visit: Yes Status: Acute As she has met her PT goals, will be sure nursing staff encourages her to get up and maintain functional mobility in anticipation of returning to her own home. (2) UTI (urinary tract infection): Current visit: Yes Status: Acute 2 more days of oral first generation cephalosporin and then she will have completed treatment. (3) Cancer related pain: Current visit: Yes Status: Chronic Monitor response to present topical fentanyl, the new addition of 15 mg twice daily of extended release morphine with continued use of as needed short- acting morphine. (4) DVT prophylaxis: Current visit: Yes Status: Acute Continue heparin subcutaneously (5) Hypomagnesemia: Current visit: Yes Status: Acute Continue oral supplement and recheck magnesium level. (6) SVT (supraventricular tachycardia): Current visit: Yes Status: Acute Continue metoprolol extended release, monitor clinically for any recurrent tachycardia. (7) Anemia: Current visit: Yes Status: Acute Periodically recheck CBC. (8) Hypothyroidism: Current visit: Yes Status: Chronic Continue present thyroid dose. (9) Gastroesophageal reflux disease: Current visit: Yes Status: Chronic Continue PPI. (10) Essential hypertension: Current visit: No Status: Chronic Follow on present dose of metoprolol. Renal function is such that her blood pressure goes up, lisinopril could be restarted. (11) Diabetes mellitus: Current visit: No Status: Chronic Follow blood sugars on present dose of metformin. This is half her outpatient dose and glipizide was discontinued. History of Present Illness Narrative: Mrs. Werner is a 62-year-old woman who was admitted to acute hospital stay from the [facility], after initiating chemotherapy and radiation therapy the day prior. She presented back to the [facility] center complaining of fevers chills and malaise, without complaints of cough chest pain dysuria nausea vomiting or diarrhea. She had had ongoing pain in the inguinal area secondary to her recently diagnosed anal cancer. She was febrile , hypotensive, with lactic acidosis, hyponatremia and leukocytosis. Cultures were obtained and she was started on broad-spectrum antibiotics pending results. She was admitted to the ICU for fluid resuscitation and pressor support because of her sepsis presentation. With aggressive fluid resuscitation and pressors her blood pressure stabilized. She had bouts of SVT that resolved without intervention initially. Her blood cultures remain sterile. Her urine culture grew E. coli resistant to fluoroquinolones, sensitive to all other antibiotics. She was transitioned off of parenteral antibiotics to oral cephalexin which she will complete in another 2 days. She continued to have brief runs of SVT and isolated short asymptomatic runs of wider complex tachyarrhythmias. Initially her blood pressure was too low to allow treatment and she was asymptomatic. However, as she overall improved, the episodes of SVT became longer and her blood pressure improved. She had a more protracted episode with a heart rate over 200, received 10 mg of IV diltiazem with conversion back to sinus rhythm. She was then started on metoprolol titrated to the discharge dose of 50 mg once daily with good tolerance?blood pressure fine and no recurrence of SVT on telemetry for another 48 hours. She had continued pain from her anal cancer that was treated with resumption of her outpatient dose of fentanyl and as needed doses of short acting morphine. On the day of transfer to swing bed her pain medicine is being adjusted with the addition of long-acting morphine in hopes of decreasing her need for short acting morphine. She had no adverse effects from the opiates and good pain control overall. Her blood sugars were mildly elevated during her hospitalization. She has not been started back on her sulfonylurea and metformin was restarted at half her outpatient dose. She had acute kidney injury which steadily improved throughout her hospitalization. She also had significant peripheral edema as a result of fluid resuscitation and has been spontaneously diuresing without the use of diuretics. Because of her hypotension, her JOSÉ LUIS inhibitor was stopped and has not been restarted. Her blood pressure has been slowly creeping up but adequately managed with beta-willian alone. Her magnesium level was slightly low, improving with oral supplementation.. She had a mild bump in her creatinine to 1.87, down to 1.02 days prior to her transfer to swing bed. She had a hemoglobin moses of 6.7 for which she received 2 units of packed red blood cells. Her hemoglobin remained stable at 8.6 thereafter. No changes were made to her chronic thyroid dose. Medication changes made to her chronic outpatient medications: Glipizide discontinued, lisinopril discontinued, metformin dose cut in half. New medication metoprolol, extended release morphine She is being admitted to swing bed level 2 as she has met her PT goals. She is still debilitated following this significant illness and she currently has a second floor apartment. Family members are in the process of getting her a first floor apartment. She will continue with chemotherapy and radiation treatment for her anal cancer as determined by the oncology team. Review of Systems Review of Systems All systems reviewed & are unremarkable except as noted in HPI and below Meds Home Medications Medication Instructions Recorded Confirmed Type acetaminophen 1 tab PO PRN 06/29/12 12/04/17 History aspirin [Ecotrin Low Strength] 1 tab PO DAILY 06/29/12 12/04/17 History calcium carbonate 1 tab.chew PO BID 06/29/12 12/04/17 History blood-glucose meter #1 ea 10/04/14 12/04/17 History ascorbic [id number] 1 packet PO PRN 07/26/15 12/04/17 History [Emergen-C] fluocinolone [Synalar] 1 applic TOPICAL BID #1 script 03/28/16 12/04/17 History simvastatin [Zocor] 1 tab PO HS #90 tab-cap 11/26/16 12/04/17 Rx lancets #200 ea 02/13/17 12/04/17 Rx blood sugar diagnostic [Blood #200 strip 03/28/17 12/04/17 Rx Glucose Test] levothyroxine [Synthroid] 1 tab PO DAILY #90 tab-cap 05/14/17 12/04/17 Rx polyethylene glycol 3350 17 17 gm PO DAILY PRN #255 gm 11/18/17 12/04/17 Rx gram/dose oral powder fentanyl 12.5 mcg TRANSDERMAL DIRECTED 12/02/17 12/04/17 History naloxone [Narcan] 1 spray JORGE ONCE PRN #2 each 12/02/17 12/04/17 Rx ondansetron [Zofran ODT] 4 mg PO PRN PRN 12/04/17 12/04/17 History Allergies Allergy/AdvReac Type Severity Reaction Status Date / Time codeine Allergy Unverified 12/04/17 15:29 copper Allergy Skin Rash Unverified 12/04/17 15:29 latex Allergy Unverified 12/04/17 15:29 lidocaine Allergy Itching Unverified 12/04/17 15:29 oxycodone AdvReac Unverified 12/05/17 12:56 Exam Narrative Exam Narrative: She is in good spirits, able to sit independently and transfer independently. Slightly pale. Sclera anicteric. Dentures up and down. No oral lesions. No JVD. Lungs good aeration no wheeze crackles or rub. Heart rhythm presently regular, 1/6 late systolic murmur, no diastolic murmur S3 or S4. Abdomen obese soft nontender with normal bowel sounds. Rectal area has increased pigmentation in the perirectal area with no open fissures and no active bleeding. Extremities have 1-2+ edema at the ankles bilaterally, warm, 1 + pulses in both feet. She has symmetric movement of all extremities. Oriented x4.
[2017-12-12] MEDS: Insulin Aspart 300 UNITS/3 ML PEN SC ×2 (12:43→17:44)
--- NOTE | 2017-12-12 14:39 | W.PALPGNOTE ---
Date of service: 12/10/17 Time of Service: 14:39 Assessment and Plan (1) Peripheral edema: Current visit: No Status: Acute still ongoing needed fluid resuscitation for her sepsis on admission needs ongoing gentle diuresis (2) Cancer related pain: Current visit: Yes Status: Chronic getting by on fentanyl patch no longer receiving IV pain meds looks and feels more comfortable (3) Goals of care, counseling/discussion: Current visit: No Status: Acute too tired to tackle this today will return next week for another try we did start paperwork at my first visit will ensure it has been finished Subjective Patient reports: no new complaints, feels better and pain is less Interval history since last seen: Has had a lot of visitors today. Just getting ready to take a nap. Feeling pain better controlled. Lying in bed. Wants me to pull down the shade so only a sliver is open. IF she doesn't get some outside light, she loses track of time. Doesn't want a long visit today. Just a quick check in. Exam Narrative Exam Narrative: Lying on her side, shades partially drawn. She looks tired, comfortable, NAD VS reviewed. Lungs CTAB Heart regular Abd obese, slightly tender, + BS wnl ext +1 edema neuro A and O x 3, less confused than last visit, no moaning or grimacing psych looks a bit depressed, but not despondent, Tired Objective Objective Clinical Data: Vital Signs Temperature 98.1 F 12/16/17 07:25 Temperature Source Tympanic 12/16/17 07:25 Pulse 85 12/16/17 07:25 Pulse Rhythm Regular 12/16/17 07:37 Respiratory Rate 18 12/16/17 07:25 Respiratory Effort 12/16/17 07:37 Respiratory Depth Normal 12/16/17 07:37 Respiratory Pattern Normal 12/16/17 07:37 Blood Pressure 132/79 12/16/17 07:25 Pulse Oximetry 94 L 12/16/17 07:25 Oxygen Delivery Method Room Air 12/16/17 07:25 Oxygen Flow Rate 0 12/16/17 07:25 Pain Level 8 12/16/17 07:25 Intake & Output 12/15/17 12/16/17 12/16/17 23:59 11:59 23:59 Intake Total 600 / 600 1360 / 1360 250 / 250 Output Total 950 / 950 1200 / 1200 Balance -350 / -350 160 / 160 250 / 250 Weight 206 lb 9.17 oz Intake: Oral 600 / 600 1360 / 1360 250 / 250 Output: Urine 950 / 950 1200 / 1200 Other: Urine Color Yellow Yellow Urine Appearance Clear Clear Urine Odor Normal Stool Size Small Stool Characteristics Soft Voiding Methods Bedside Commode Bedside Commode Laboratory Results WBC 2.90 k/cumm (4.4-10.8) L 12/15/17 06:50 RBC 3.33 m/cumm (4.00-5.20) L 12/15/17 06:50 Hgb 9.2 g/dL (12.0-15.5) L 12/15/17 06:50 Hct 30.0 % (36.0-46.0) L 12/15/17 06:50 MCV 90.1 fL (80-95) 12/15/17 06:50 MCH 27.6 pg (27.0-33.0) 12/15/17 06:50 MCHC 30.7 g/dL (32.0-36.0) L 12/15/17 06:50 RDW 17.9 % (11.7-14.6) H 12/15/17 06:50 Plt Count 206 x1000/uL (130-400) 12/15/17 06:50 MPV 9.3 fL (8.0-11.0) 12/15/17 06:50 Sodium 140 mmol/L (136-145) 12/15/17 06:50 Potassium 3.7 mmol/L (3.5-5.1) 12/15/17 06:50 Chloride 102 mmol/L (98-107) 12/15/17 06:50 Carbon Dioxide 33.2 mmol/L (21.0-32.0) H 12/15/17 06:50 Anion Gap 4.8 mmol/L (3-11) 12/15/17 06:50 BUN 10 mg/dL (7-18) 12/15/17 06:50 Creatinine 0.82 mg/dL (0.55-1.02) 12/15/17 06:50 Estimated GFR/1.73 m2 >= 60.00 (mL/min/1.73m2) 12/15/17 06:50 Glucose 130 mg/dL (70-100) H 12/15/17 06:50 Calcium 8.2 mg/dL (8.5-10.1) L 12/15/17 06:50 Magnesium 1.8 mg/dL (1.8-2.4) 12/15/17 06:50
[2017-12-12] MEDS: Cephalexin 500 MG CAP PO ×2 (14:52→20:27)
[2017-12-12] MEDS: fentaNYL 12 MCG PATCH TD (14:52)
[2017-12-12] MEDS: Patch Removal 1 EACH TP (14:53)
--- NOTE | 2017-12-12 15:28 | PT.INDS ---
Date of service: 12/12/17 Time of Service: 15:28 PT Notes Inpatient Physical Therapy Discharge Summary Date: 12/12/17 Dates of Service: 12/09/17-12/12/17 SUBJECTIVE: NT OBJECTIVE: 12/09/17-12/12/17 Bed Mobility/Transfers: Supine-sit: independent Sit-supine: independent Sit-stand: independent Stand-sit: independent Gait: supervision with FWW 200ft Therex: independent with home exercise program Stairs: supervision up/down 1- steps with railing and cane Balance: Static Sitting: normal Dynamic Sitting: normal Static Standing: fair Dynamic Standing: fair Assessment: Pt is a 62yr old female admitted with septic shock, urinary tract infection in setting of squamous cell carcinoma of the anus in setting of diabetes mellitus, anemia, supraventricular tachycardia. Patient presents with the following impairment level findings: weakness and decreased strength with bed mobility, standing transfers and gait with FWW due to recent hospital immobility, requiring FWW for gait stability to prevent falls, decreased static and dynamic standing balance. Pt was seen for 5 PT visits. Progressed from SBA transfers to independent, from SBA gait with fWW 80ft to supervision gait with FWW 200ft, able to ascend/descend 10 steps with railing and cane supervision. Pt has met therapy goals and is ready for discharge to home setting when medically cleared, discharge PT services. Goals: Goals X1 week 1. Supine-Sit independent 2. Sit-Supine independent 3. Sit-Stand supervision 4. Stand-Sit supervision 5. Bed-Chair SBA no device 6. Chair-Bed SBA no device 7. Gait SBA no device [id number] 8. Stairs up/down 15 steps with railing, supervision 9. Independent with home exercise program Pt met goals # 1-9 DISCHARGE RECOMMENDATIONS: Home TREATMENT CODE/TIME: 26 min IE 10:20 G Codes in the area mobility of walking and moving around: projected status GP [id number]. Discharge status (if discharging) GP [id number] CK Ivis Ambrocio PT
--- NOTE | 2017-12-12 15:32 | INDS_ITS ---
Date of service: 12/12/17 Time of Service: 15:28 PT Notes Inpatient Physical Therapy Discharge Summary Date: 12/12/17 Dates of Service: 12/09/17-12/12/17 SUBJECTIVE: NT OBJECTIVE: 12/09/17-12/12/17 Bed Mobility/Transfers: Supine-sit: independent Sit-supine: independent Sit-stand: independent Stand-sit: independent Gait: supervision with FWW 200ft Therex: independent with home exercise program Stairs: supervision up/down 1- steps with railing and cane Balance: Static Sitting: normal Dynamic Sitting: normal Static Standing: fair Dynamic Standing: fair Assessment: Pt is a 62yr old female admitted with septic shock, urinary tract infection in setting of squamous cell carcinoma of the anus in setting of diabetes mellitus, anemia, supraventricular tachycardia. Patient presents with the following impairment level findings: weakness and decreased strength with bed mobility, standing transfers and gait with FWW due to recent hospital immobility, requiring FWW for gait stability to prevent falls, decreased static and dynamic standing balance. Pt was seen for 5 PT visits. Progressed from SBA transfers to independent, from SBA gait with fWW 80ft to supervision gait with FWW 200ft, able to ascend/ descend 10 steps with railing and cane supervision. Pt has met therapy goals and is ready for discharge to home setting when medically cleared, discharge PT services. Goals: Goals X1 week 1. Supine-Sit independent 2. Sit-Supine independent 3. Sit-Stand supervision 4. Stand-Sit supervision 5. Bed-Chair SBA no device 6. Chair-Bed SBA no device 7. Gait SBA no device [id number] 8. Stairs up/down 15 steps with railing, supervision 9. Independent with home exercise program Pt met goals # 1-9 DISCHARGE RECOMMENDATIONS: Home TREATMENT CODE/TIME: 26 min IE 10:20 G Codes in the area mobility of walking and moving around: projected status GP [id number]. Discharge status (if discharging) GP [id number] CK Ivis Ambrocio PT
--- NOTE | 2017-12-12 15:55 | CHAPLAIN ---
Sherry told me she is now on swing bed, and not likely going to [facility] because of insurance issues. Her is a resident there. Sherry is making plans now to move from a second floor apartment to the first floor so she will not have to deal with the stairs to the second floor. Sherry was tearful at times during our conversation and said the cries when she needs to, and then feels better. She shared some personal history telling me about cross country trips when her children were very young and they all loved in [place] and would drive back to [place] for vacation. Sherry's granddaughter was in to visit yesterday, and that was pleasure for her.
[2017-12-12] MEDS: metFORMIN 500 MG TAB PO (17:49)
--- NOTE | 2017-12-12 19:04 | PDOC.CMPRO ---
- If Service Date Differs Date of service: 12/12/17 Time of Service: 19:04 Care Management Progress Note S/O: CM reviewed with patient options for discharge disposition and benefits. Sherry is tearful and states that she is not ready to return home today. Her daughter is moving her to a ground floor apartment which should be ready to move into over the next two weeks. PT is discharging patient from services and report that she has met her goals for both OT and PT. Sherry is feeling weak related to recent treatments with radiation and chemotherapy and recent admission for sepsis. She feels her pain is being addressed however states it continues to be a 8 out of 10. Sherry would like to remain at [facility] until her daughter is able to move all of her belongings to the ground floor apartment. CM has reviewed SB2 with Sherry and reviewed with that it would be self pay, which she agrees to. CM will complete the financial assistance application with Sherry. CM reviewed plan with Sherry's daughter and team and the agreement is to admit Sherry to SB2 at this time. Goal is two weeks and she will be discharged with Home health PT and OT at time of discharge. SB contract reviewed and compelled with patient. A: Sherry is a 62 year old female admitted with sepsis after recent treatment for rectal cancer. P: SB2 for two weeks while safe discharge plan is being determined. Sherry daughter has retained a ground floor apartment and is process of preparing it for hSerry. 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 Palliative will continue to follow.
[2017-12-12] MEDS: Magnesium Oxide 400 MG TAB PO (20:27)
[2017-12-12] MEDS: Simvastatin 10 MG TAB PO (21:24)
[2017-12-12] MEDS: Heparin 5,000 UNITS/ML VIAL 5000 UNITS SC (21:25)
[2017-12-12] MEDS: Normal Saline Flush 10 ML SYR IVP (21:25)
[2017-12-13 00:33] VITALS: BP 111/68; PULSE 90; RESP 18; TEMP 36.4; O2SAT 91
[2017-12-13] MEDS: Heparin 5,000 UNITS/ML VIAL 5000 UNITS SC ×3 (05:59→21:33)
[2017-12-13 07:07] LABS: HCT 26.2 % (36.0-46.0); Mean Corp. HGB Concentration 30.5 g/dL (32.0-36.0); Mean Corpuscular Hemoglobin 27.2 pg (27.0-33.0); Mean Corpuscular Volume 89.1 fL (80-95); Mean Platelet Volume 8.5 fL (8.0-11.0); Platelet Count 218 x1000/uL (130-400); RBC 2.94 m/cumm (4.00-5.20); RBC Distribution Width 17.3 % (11.7-14.6); White Blood Cell Count 3.24 k/cumm (4.4-10.8)
[2017-12-13 07:21] LABS: Anion Gap 6.6 mmol/L (3-11); BUN 7 mg/dL (7-18); CO2 29.4 mmol/L (21.0-32.0); CREATININE 0.93 mg/dL (0.55-1.02); Chloride 104 mmol/L (98-107); Glucose 158 mg/dL (70-100); Magnesium 1.5 mg/dL (1.8-2.4); Potassium 3.1 mmol/L (3.5-5.1); Sodium 140 mmol/L (136-145)
[2017-12-13 07:30] VITALS: BP 146/76; PULSE 87; RESP 17; TEMP 36.2; O2SAT 95
[2017-12-13] MEDS: Cephalexin 500 MG CAP PO ×3 (07:59→20:18)
[2017-12-13] MEDS: Metoprolol CR 50 MG TABCR PO (07:59)
[2017-12-13] MEDS: Magnesium Oxide 400 MG TAB PO ×3 (07:59→20:18)
[2017-12-13] MEDS: Aspirin E.C. 81 MG TABEC PO (08:00)
[2017-12-13] MEDS: metFORMIN 500 MG TAB PO ×2 (08:00→17:33)
[2017-12-13] MEDS: Pantoprazole 40 MG TABCR PO (08:00)
[2017-12-13] MEDS: Insulin Aspart 300 UNITS/3 ML PEN SC ×2 (08:09→11:57)
[2017-12-13] MEDS: Polyethylene Glycol 3350 17 GM PACKET PO (08:09)
--- NOTE | 2017-12-13 10:45 | OTDS_ITS ---
Date of service: 12/13/17 Time of Service: 10:43 Occupational Therapy Notes Occupational Therapy Inpatient Discharge Summary Date: 12/13/17 for 12/12/17 Dates of Service: 12/10/17-12/12/17 SUBJECTIVE: Not tested. 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 Bathing LE Progressed from sitting in chair pt able to wash her upper thighs, denies ability to wash lower legs/ feet stating she has too much swelling in her feet. OT provided max (A) for lower legs and feet, to Pt able to perfrom LE bathing with min (A) sitting in chair for LE and feet. DRESSING Upper body: Pt (I) with UE dressing. Lower Body: Pt progressed from max (A) to min (A). Pt able to perform LE dressing laying supine in bed. TOILETING: Pt progressed from using bedside commode to being able to perform toileting routine on toilet with mod (A) for wiping after bowel movement. ASSESSMENT: Patient is a 62-year-old female referred to occupational therapy services with diagnosis of loss of ADLs when admitted with septic shock, urinary tract infection in setting of squamous cell carcinoma of the anus in setting of diabetes mellitus, anemia, supraventricular tachycardia. Patient presents with the following impairment level findings: Decreased functional activity tolerance, decreased (I) in ADLs including toileting, dressing, bathing , decreased strength (R) UE, and functional mobility performed with FWW. Pt was seen for 3 OT sessions and progressed from needing max (A) for LE bathing in sitting position to min (A). Pt still requiring min to mod (A) for wiping post bowel movement however, pt educated on adaptive equipment but pt reports she can have her daughter come in and help as needed. No need for skilled OT services at this time. Pt able to dress LE in the supine position, pt able to perform bathing sitting and denies going to shower during OT session stating that she can do it and pt able to toilet on toilet still requires min (A) for wiping but education provided in previous OT session on use of adaptive equipment. Recommend that pt return home when medically cleared. GOALS 1. Dressing Mod (I) donning socks, (I) donning pants and underwear. 2. Bathing standing in shower, (I) with UE/ LE bathing 3. Toileting on toilet (I) with wiping using adaptive equipment for rectum. Pt did not meet goals, however pt denies the need for adaptive equipment for dressing during OT sessions stating that she will be able to perform once swelling goes down. And pt denies the need for education in safe transferring and bathing standing in shower standing that she can do this as well once the swelling goes down. Pt is able to don and doff socks (I) in the supine position with no adaptive equipment. DISCHARGE RECOMMENDATIONS: Home TREATMENT CODES/TIME: G Codes in the area of self- : washing oneself, toileting, dressing, eating and drinking, current status [id number] projected status GP [id number]. Discharge status (if discharging) GP [id number]
[2017-12-13] MEDS: Potassium Chloride 10 MEQ TABCR PO (10:56)
--- NOTE | 2017-12-13 10:58 | PDOC.CMPRO ---
- If Service Date Differs Date of service: 12/13/17 Time of Service: 10:58 Care Management Progress Note S/O: Sherry is lying in bed when CM visits this morning. She is engaged in conversation though reports that she is tired. Sherry is swingbed II status on the MS floor and will remain so for one to two weeks until her discharge. She denies pain at this time and reports that she is ok with her discharge planning. Sherry will be moving to the first floor in her apartment building and she reports that the carpeting and other such work is being completed at this time. Sherry's daughter lives upstairs in the building. Sherry had initially hoped to transfer to [facility] but reports that she is comfortable with discharging to the apartment when she is ready per MD. Dr. Trotter spoke with Sherry's oncologist who is considering re-starting Sherry on chemo/radiation. Per Dr. Trotter request, CM asked Sherry to have someone bring in her capecitabine pills in anticipation of beginning chemo/radiation next week. Sherry reported that she would ask one of her family members to bring in her medication. Sherry has a newly scheduled appointment at [facility] on Saturday, 12/16 at 1600. A: Sherry is a 62 year old female admitted with sepsis after recent treatment for rectal cancer. P: Sherry will discharge home when medically ready per MD. Anticipate Sherry will discharge with new home health services to include PT/OT. Sherry will also benefit from INSURANCE CLAIM AUDITOR to address resources and psychosocial needs in the community. Palliative will continue to follow. CM will continue to offer support to patient, family and care team regarding discharge planning and disposition.
--- NOTE | 2017-12-13 11:03 | CMPROGNOTE_ITS ---
- If Service Date Differs Date of service: 12/13/17 Time of Service: 10:58 Care Management Progress Note S/O: Sherry is lying in bed when CM visits this morning. She is engaged in conversation though reports that she is tired. Sherry is swingbed II status on the MS floor and will remain so for one to two weeks until her discharge. She denies pain at this time and reports that she is ok with her discharge planning. Sherry will be moving to the first floor in her apartment building and she reports that the carpeting and other such work is being completed at this time. Sherry's daughter lives upstairs in the building. Sherry had initially hoped to transfer to [facility] but reports that she is comfortable with discharging to the apartment when she is ready per MD. Dr. Trotter spoke with Sherry's oncologist who is considering re-starting Sherry on chemo/radiation. Per Dr. Trotter request, CM asked Sherry to have someone bring in her capecitabine pills in anticipation of beginning chemo/radiation next week. Sherry reported that she would ask one of her family members to bring in her medication. Sherry has a newly scheduled appointment at [facility] on Saturday, 12/16 at 1600. A: Sherry is a 62 year old female admitted with sepsis after recent treatment for rectal cancer. P: Sherry will discharge home when medically ready per MD. Anticipate Sherry will discharge with new home health services to include PT/OT. Sherry will also benefit from FIRE PROTECTION ENGINEER to address resources and psychosocial needs in the community. Palliative will continue to follow. CM will continue to offer support to patient , family and care team regarding discharge planning and disposition.
--- NOTE | 2017-12-13 14:54 | PGE_ITS ---
Assessment and Plan (1) Debility: Current visit: Yes Status: Acute A bit of a down day today but feeling a little better this afternoon. Continue to encourage ambulation and as much independent functioning as possible. (2) UTI (urinary tract infection): Current visit: Yes Status: Acute During completion of antibiotic treatment, no recurrent fevers or symptoms. (3) Cancer related pain: Current visit: Yes Status: Chronic Pain control acceptable to patient on current regimen. (4) DVT prophylaxis: Current visit: Yes Status: Acute Continue heparin subcutaneously (5) SVT (supraventricular tachycardia): Current visit: Yes Status: Acute No recurrence based on assessment of vital signs. Continue metoprolol at current dose. (6) Essential hypertension: Current visit: No Status: Chronic Pressures are creeping up. May need to add back lisinopril. Continue metoprolol at current dose. (7) Diabetes mellitus: Current visit: No Status: Chronic Blood sugars are starting to creep up. Follow blood sugars on present dose of metformin. This is half her outpatient dose and glipizide was discontinued. (8) Anal cancer: Current visit: No Status: Chronic Spoke with Dr. Verduzco who wants to reinitiate treatment as soon as possible. Family has been contacted to bring in her capecitabine which might start on Saturday. He will call on Saturday with updated plan for restarting chemotherapy and radiation therapy. (9) Hypokalemia: Current visit: Yes Status: Acute Cause not clear, not on any diuretic. Has been having spontaneous diuresis and might be losing potassium through urine? Oral supplementation and recheck tomorrow. (10) Anemia: Current visit: Yes Status: Acute Hemoglobin has drifted down slightly. No evidence of blood loss. Recheck hemoglobin tomorrow. Subjective Interval history since last seen: [place] a little tired this morning, better this afternoon. Pain control good. Appetite fine. No nausea or vomiting. No evidence of recurrent SVT through status check no symptoms of palpitations chest discomfort dizziness or lightheadedness. No dysuria. Blood sugars have been creeping up a bit as have her blood pressure readings. I spoke with Dr. Verduzco by phone, he reports he has a high probability of cure of her anal cancer and does not want to get behind the schedule for treatment. He would like to resume this on Saturday and will discuss with radiation oncology reinstituting both radiation therapy and chemotherapy. She has been prescribed keep Capecitabine 1650 mg twice daily which she has at home. Family members have been contacted to bring this in so that it can be started once we get the go ahead from Dr. Verduzco. Exam Narrative Exam Narrative: She is comfortable lying in bed. Temperature 36.2 blood pressure 1 teens to 140s over 70s, pulse regular in the 80s. Pale. Not in any respiratory distress. Cannot see neck veins because of neck size. Site of IJ line slight bruising no erythema or induration. Anterior and lateral lung kyle clear. Regular heart rhythm without S3 or S4. Abdomen normal bowel sounds obese soft nontender. 1+ edema both lower extremities. Objective Objective Clinical Data: Abnormal lab results 12/13/17 12/13/17 Range/Units 06:45 06:45 WBC 3.24 L (4.4-10.8) k/cumm RBC 2.94 L (4.00-5.20) m/cumm Hgb 8.0 L (12.0-15.5) g/dL Hct 26.2 L (36.0-46.0) % MCHC 30.5 L (32.0-36.0) g/dL RDW 17.3 H (11.7-14.6) % Potassium 3.1 L (3.5-5.1) mmol/L Glucose 158 H (70-100) mg/dL Calcium 8.0 L (8.5-10.1) mg/dL Magnesium 1.5 L (1.8-2.4) mg/dL Vital Signs Temperature 36.2 C L 12/13/17 07:30 Temperature Source Tympanic 12/13/17 07:30 Pulse 87 12/13/17 07:30 Pulse Rhythm Regular 12/13/17 07:35 Respiratory Rate 17 12/13/17 07:30 Respiratory Effort Non-Labored 12/13/17 07:35 Respiratory Depth Normal 12/13/17 07:35 Respiratory Pattern Normal 12/13/17 07:35 Blood Pressure 146/76 H 12/13/17 07:30 Pulse Oximetry 95 12/13/17 07:30 Oxygen Delivery Method Room Air 12/13/17 07:30 Oxygen Flow Rate 0 12/13/17 07:30 Pain Level 6 12/13/17 07:30 Intake & Output 12/12/17 12/13/17 12/13/17 23:59 11:59 23:59 Intake Total 370 / 370 750 / 750 240 / 240 Output Total 1550 / 1550 3050 / 3050 400 / 400 Balance -1180 / -1180 -2300 / -2300 -160 / -160 Weight 101.151 kg 100.7 kg Intake: IV Oral 360 / 360 750 / 750 240 / 240 Output: Urine 1550 / 1550 3050 / 3050 400 / 400 Other: Urine Color Yellow Yellow Yellow Urine Appearance Cloudy Cloudy Cloudy Urine Odor Normal Strong None Stool Size Smear Stool Characteristics Mucoid Brown Voiding Methods Bedside Commode Toilet Toilet Laboratory Results WBC 3.24 k/cumm (4.4-10.8) L 12/13/17 06:45 RBC 2.94 m/cumm (4.00-5.20) L 12/13/17 06:45 Hgb 8.0 g/dL (12.0-15.5) L 12/13/17 06:45 Hct 26.2 % (36.0-46.0) L 12/13/17 06:45 MCV 89.1 fL (80-95) 12/13/17 06:45 MCH 27.2 pg (27.0-33.0) 12/13/17 06:45 MCHC 30.5 g/dL (32.0-36.0) L 12/13/17 06:45 RDW 17.3 % (11.7-14.6) H 12/13/17 06:45 Plt Count 218 x1000/uL (130-400) 12/13/17 06:45 MPV 8.5 fL (8.0-11.0) 12/13/17 06:45 Sodium 140 mmol/L (136-145) 12/13/17 06:45 Potassium 3.1 mmol/L (3.5-5.1) L 12/13/17 06:45 Chloride 104 mmol/L (98-107) 12/13/17 06:45 Carbon Dioxide 29.4 mmol/L (21.0-32.0) 12/13/17 06:45 Anion Gap 6.6 mmol/L (3-11) 12/13/17 06:45 BUN 7 mg/dL (7-18) 12/13/17 06:45 Creatinine 0.93 mg/dL (0.55-1.02) 12/13/17 06:45 Estimated GFR/1.73 m2 >= 60.00 (mL/min/1.73m2) 12/13/17 06:45 Glucose 158 mg/dL (70-100) H 12/13/17 06:45 Calcium 8.0 mg/dL (8.5-10.1) L 12/13/17 06:45 Magnesium 1.5 mg/dL (1.8-2.4) L 12/13/17 06:45
[2017-12-13 15:55] VITALS: BP 109/67; PULSE 77; RESP 18; TEMP 36.5; O2SAT 95
[2017-12-13] MEDS: Ondansetron O.D.T. 4 MG TABEF PO (17:55)
[2017-12-13] MEDS: Simvastatin 10 MG TAB PO (21:33)
[2017-12-13 23:44] VITALS: BP 126/74; PULSE 89; RESP 20; TEMP 36.5; O2SAT 93
[2017-12-14] MEDS: Heparin 5,000 UNITS/ML VIAL 5000 UNITS SC ×3 (05:04→22:04)
[2017-12-14 07:18] LABS: HCT 27.6 % (36.0-46.0); HGB 8.5 g/dL (12.0-15.5)
[2017-12-14 07:31] LABS: Anion Gap 2.9 mmol/L (3-11); BUN 8 mg/dL (7-18); CO2 33.1 mmol/L (21.0-32.0); CREATININE 0.79 mg/dL (0.55-1.02); Calcium 7.8 mg/dL (8.5-10.1); Chloride 103 mmol/L (98-107); Glucose 140 mg/dL (70-100); Potassium 3.4 mmol/L (3.5-5.1); Sodium 139 mmol/L (136-145)
[2017-12-14 08:15] VITALS: BP 123/72; PULSE 80; RESP 15; TEMP 36.2; O2SAT 92
[2017-12-14] MEDS: Insulin Aspart 300 UNITS/3 ML PEN SC ×2 (08:19→12:09)
[2017-12-14] MEDS: Pantoprazole 40 MG TABCR PO (08:20)
[2017-12-14] MEDS: Potassium Chloride 10 MEQ TABCR PO (08:20)
[2017-12-14] MEDS: metFORMIN 500 MG TAB PO ×2 (08:20→17:03)
[2017-12-14] MEDS: Metoprolol CR 50 MG TABCR PO (08:20)
[2017-12-14] MEDS: Cephalexin 500 MG CAP PO ×3 (08:20→20:21)
[2017-12-14] MEDS: Aspirin E.C. 81 MG TABEC PO (08:20)
[2017-12-14] MEDS: Magnesium Oxide 400 MG TAB PO (08:21)
[2017-12-14] MEDS: Potassium Chloride 20 MEQ TABCR 40 MEQ PO (12:17)
[2017-12-14 16:25] VITALS: BP 118/72; PULSE 86; RESP 18; TEMP 36.3; O2SAT 94
[2017-12-14] MEDS: Magnesium Chloride 64 MG TABCR PO (20:21)
[2017-12-14] MEDS: Simvastatin 10 MG TAB PO (22:04)
[2017-12-14 23:57] VITALS: BP 128/70; PULSE 81; RESP 22; TEMP 37.1; O2SAT 93
[2017-12-15] MEDS: Heparin 5,000 UNITS/ML VIAL 5000 UNITS SC ×3 (06:49→20:55)
[2017-12-15 07:20] VITALS: BP 120/73; PULSE 82; RESP 17; TEMP 36.6; O2SAT 94
[2017-12-15] MEDS: Pantoprazole 40 MG TABCR PO (07:38)
[2017-12-15 07:41] LABS: HGB 9.2 g/dL (12.0-15.5); Mean Corp. HGB Concentration 30.7 g/dL (32.0-36.0); Mean Corpuscular Hemoglobin 27.6 pg (27.0-33.0); Mean Corpuscular Volume 90.1 fL (80-95); Mean Platelet Volume 9.3 fL (8.0-11.0); Platelet Count 206 x1000/uL (130-400); RBC 3.33 m/cumm (4.00-5.20); RBC Distribution Width 17.9 % (11.7-14.6)
[2017-12-15 07:53] LABS: Anion Gap 4.8 mmol/L (3-11); BUN 10 mg/dL (7-18); CO2 33.2 mmol/L (21.0-32.0); CREATININE 0.82 mg/dL (0.55-1.02); Calcium 8.2 mg/dL (8.5-10.1); Chloride 102 mmol/L (98-107); Glucose 130 mg/dL (70-100); Magnesium 1.8 mg/dL (1.8-2.4); Potassium 3.7 mmol/L (3.5-5.1); Sodium 140 mmol/L (136-145)
[2017-12-15] MEDS: Magnesium Chloride 64 MG TABCR PO ×2 (08:24→20:56)
[2017-12-15] MEDS: Metoprolol CR 50 MG TABCR PO (08:24)
[2017-12-15] MEDS: metFORMIN 500 MG TAB PO ×2 (08:24→17:58)
[2017-12-15] MEDS: Insulin Aspart 300 UNITS/3 ML PEN SC ×2 (08:25→11:58)
[2017-12-15] MEDS: Potassium Chloride 10 MEQ CAPCR 20 MEQ PO (08:25)
[2017-12-15] MEDS: Aspirin E.C. 81 MG TABEC PO (08:25)
[2017-12-15] MEDS: fentaNYL 12 MCG PATCH TD (13:57)
[2017-12-15] MEDS: Patch Removal 1 EACH TP (13:58)
[2017-12-15] MEDS: Polyethylene Glycol 3350 17 GM PACKET PO (14:53)
[2017-12-15 16:14] VITALS: BP 121/59; PULSE 80; RESP 18; TEMP 36.9; O2SAT 94
[2017-12-15] MEDS: Simvastatin 10 MG TAB PO (20:56)
[2017-12-15 23:19] VITALS: BP 131/72; PULSE 85; RESP 18; TEMP 36.7; O2SAT 94
[2017-12-16] MEDS: Heparin 5,000 UNITS/ML VIAL 5000 UNITS SC ×3 (05:50→22:00)
[2017-12-16 07:25] VITALS: BP 132/79; PULSE 85; RESP 18; TEMP 36.7; O2SAT 94
[2017-12-16] MEDS: Insulin Aspart 300 UNITS/3 ML PEN SC ×3 (08:01→17:07)
[2017-12-16] MEDS: Pantoprazole 40 MG TABCR PO (08:02)
[2017-12-16] MEDS: Metoprolol CR 50 MG TABCR PO (08:02)
[2017-12-16] MEDS: Potassium Chloride 10 MEQ CAPCR 20 MEQ PO (08:02)
[2017-12-16] MEDS: Magnesium Chloride 64 MG TABCR PO ×2 (08:02→19:57)
[2017-12-16] MEDS: Aspirin E.C. 81 MG TABEC PO (08:02)
[2017-12-16] MEDS: metFORMIN 500 MG TAB PO ×2 (08:02→17:12)
[2017-12-16 15:37] VITALS: BP 144/84; PULSE 92; RESP 18; TEMP 36.7; O2SAT 96
[2017-12-16] MEDS: Simvastatin 10 MG TAB PO (22:00)
[2017-12-17 00:20] VITALS: BP 113/66; PULSE 85; RESP 15; TEMP 36.2; O2SAT 94
[2017-12-17] MEDS: Heparin 5,000 UNITS/ML VIAL 5000 UNITS SC ×3 (06:04→22:12)
[2017-12-17 07:25] VITALS: BP 110/70; PULSE 76; RESP 18; TEMP 36.4; O2SAT 96
[2017-12-17] MEDS: Pantoprazole 40 MG TABCR PO (08:10)
[2017-12-17] MEDS: Potassium Chloride 10 MEQ CAPCR 20 MEQ PO (08:10)
[2017-12-17] MEDS: Magnesium Chloride 64 MG TABCR PO ×2 (08:10→20:42)
[2017-12-17] MEDS: Aspirin E.C. 81 MG TABEC PO (08:10)
[2017-12-17] MEDS: Metoprolol CR 50 MG TABCR PO (08:10)
[2017-12-17] MEDS: metFORMIN 500 MG TAB PO ×2 (08:10→17:02)
[2017-12-17] MEDS: Insulin Aspart 300 UNITS/3 ML PEN SC ×3 (08:11→17:02)
--- NOTE | 2017-12-17 14:03 | CM.SBPSYCH ---
- If Service Date Differs Date of service: 12/12/17 Time of Service: 14:06 Psychosocial/Act.Assessment - Hospital Admission Admission Date: 12/04/17 Admission From:: ED Diagnosis:: Septic shock - Swing Bed Admission Swing Bed Level of Care: Level 2/ICF - Social Supports PREVIOUS FUNCTIONAL STATUS/SOCIAL/FAMILY SUPPORTS:: Sherry lives at home she is independent at base line. She states she was recently diagnosed with Anal cancer, she is currently receiving chemotherapy and radiation treatment. Her spouse is [facility] at [facility]. She has two children her daughter Nila lives locally and is supportive her son is in [place]. She has a sister in law that is present. - Prior to Admission Living Arrangements/Environment Prior to Admission:: Lives at home independently in her own apartment. Her spouse is [facility] at [facility] as a [facility] level of care. - Education Highest Grade Completed:: 12 - Work History Employment Status:: Medical leave of absence at this time. 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 Communication:: Sherry is able to communitcate her needs and is open to visitors and talking with others. Sensory Systems: WNL Behavior:: Weepy at times she is engaged during CM assessment and appears to enjoy conversation. - Medical History PAST MEDICAL HISTORY/PAST SURGICAL HISTORY:: SVT, anemia, hypothyroidisim, hyperlipidemia, GERD, essential HTN, DM General Health:: fair - Admission Data Reason for Swing Bed Admission:: Weakness not ready to return home to second floor apartment. Her daughter is preperaing a first floor apartment for her to transition to within the next two weeks. CM is assisting patient in applying for financial assistance. Discharge Plan:: Home with home health services and continued support through [facility] Assessment: Sherry is currently admitted to SB2 for decompensation related to prolonged hospital stay r/t sepsis and recent diagnosis of rectal cancer. PT has been discharged from PT however does not feel that she can return home and do stairs at this time. Family will relocate her apartment to the first floor. Sherry does not want to transition to a SNF at this time and local SNF is out of network for her insurance company. Bottom Brusher: Aaliyah Jacob Date Assessment was completed:: 12/12/17
--- NOTE | 2017-12-17 14:26 | CMSA_ITS ---
- If Service Date Differs Date of service: 12/12/17 Time of Service: 14:06 Psychosocial/Act.Assessment - Hospital Admission Admission Date: 12/04/17 Admission From:: ED Diagnosis:: Septic shock - Swing Bed Admission Swing Bed Level of Care: Level 2/ICF - Social Supports PREVIOUS FUNCTIONAL STATUS/SOCIAL/FAMILY SUPPORTS:: Sherry lives at home she is independent at base line. She states she was recently diagnosed with Anal cancer , she is currently receiving chemotherapy and radiation treatment. Her spouse is currently at [facility] short term. She has two children her daughter Nila lives locally and is supportive her son is in [place]. She has a sister in law that is present. - Prior to Admission Living Arrangements/Environment Prior to Admission:: Lives at home independently in her own apartment. Her spouse is currently at [facility] as a SNF level of care. - Education Highest Grade Completed:: 12 - Work History Employment Status:: Medical leave of absence at this time. 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 Communication:: Sherry is able to communitcate her needs and is open to visitors and talking with others. Sensory Systems: WNL Behavior:: Weepy at times she is engaged during CM assessment and appears to enjoy conversation. - Medical History PAST MEDICAL HISTORY/PAST SURGICAL HISTORY:: SVT, anemia, hypothyroidisim, hyperlipidemia, GERD, essential HTN, DM General Health:: fair - Admission Data Reason for Swing Bed Admission:: Weakness not ready to return home to second floor apartment. Her daughter is preperaing a first floor apartment for her to transition to within the next two weeks. CM is assisting patient in applying for financial assistance. Discharge Plan:: Home with home health services and continued support through [facility] Assessment: Sherry is currently admitted to SB2 for decompensation related to prolonged hospital stay r/t sepsis and recent diagnosis of rectal cancer. PT has been discharged from PT however does not feel that she can return home and do stairs at this time. Family will relocate her apartment to the first floor. Sherry does not want to transition to a SNF at this time and local SNF is out of network for her insurance company. Reception Specialist: Aaliyah Jacob Date Assessment was completed:: 12/12/17
--- NOTE | 2017-12-17 14:26 | CM.SWINGPC ---
- If Service Date Differs Date of service: 12/12/17 Time of Service: 14:26 Swingbed Plan of Care Plan of care: SWING BED PROGRAM ACTIVITIES/DISCHARGE PLAN OF CARE ACTIVITIES PLAN Date:12/12/17 Identified Need: Individual activity Intervention/Plan:Activities and goals Activity cart, music therapy, television in the room, phone and reiki services. Initials SANDRITA DISCHARGE PLAN Date:12/12/2017 Identified Need: Home to new apartment on the first floor. Home Health services. Pt financial assistance application to be completed. Intervention/Plan: Sb2 awaiting new apartment to be complete and CM to order home health services. Initials: SANDRITA
[2017-12-17 15:48] VITALS: BP 122/78; PULSE 85; RESP 18; TEMP 36.6; O2SAT 96
--- NOTE | 2017-12-17 18:38 | CHAPLAIN ---
Sherry was resting in bed when I visited. She tells me about going to chemo and radiation therapy today. She started back up yesterday. She said she feels that she can lay on her back more comfortably now and she hopes this is a sign that the radiation is causing shrinkage. 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 She won an award for TEMPLATE MAKER of the year in the state [facility]. Her daughter is working to move Sherry from a second floor apartment to a first floor apartment in the same building. Sherry said she called her son in [place] and asked him to come and help. Sherry's is a patient currently at [facility] . She is a member of the [employer] in [facility], but has not attended in many years and is not interested in connecting to the restorationist right now.
[2017-12-17] MEDS: Polyethylene Glycol 3350 17 GM PACKET PO (20:42)
[2017-12-17] MEDS: Simvastatin 10 MG TAB PO (22:12)
[2017-12-18 00:21] VITALS: BP 132/70; PULSE 76; RESP 18; TEMP 36.8; O2SAT 100
[2017-12-18] MEDS: Heparin 5,000 UNITS/ML VIAL 5000 UNITS SC ×3 (06:33→22:52)
[2017-12-18 07:04] LABS: HCT 32.2 % (36.0-46.0); HGB 9.9 g/dL (12.0-15.5); Mean Corp. HGB Concentration 30.7 g/dL (32.0-36.0); Mean Corpuscular Hemoglobin 27.6 pg (27.0-33.0); Mean Corpuscular Volume 89.7 fL (80-95); Mean Platelet Volume 9.2 fL (8.0-11.0); Platelet Count 190 x1000/uL (130-400); RBC 3.59 m/cumm (4.00-5.20); RBC Distribution Width 18.5 % (11.7-14.6); White Blood Cell Count 3.71 k/cumm (4.4-10.8)
[2017-12-18 07:12] LABS: Anion Gap 5.7 mmol/L (3-11); BUN 12 mg/dL (7-18); CO2 32.3 mmol/L (21.0-32.0); CREATININE 0.97 mg/dL (0.55-1.02); Calcium 8.4 mg/dL (8.5-10.1); Chloride 98 mmol/L (98-107); Estimated GFR 57.82 (mL/min/1.73m2); Glucose 148 mg/dL (70-100); Magnesium 1.8 mg/dL (1.8-2.4); Potassium 3.7 mmol/L (3.5-5.1); Sodium 136 mmol/L (136-145)
[2017-12-18 07:20] VITALS: BP 113/69; PULSE 73; RESP 20; TEMP 36.7; O2SAT 96
[2017-12-18] MEDS: Potassium Chloride 10 MEQ CAPCR 20 MEQ PO (08:34)
[2017-12-18] MEDS: metFORMIN 500 MG TAB PO ×2 (08:34→17:48)
[2017-12-18] MEDS: Magnesium Chloride 64 MG TABCR PO ×2 (08:34→20:46)
[2017-12-18] MEDS: Aspirin E.C. 81 MG TABEC PO (08:35)
[2017-12-18] MEDS: Metoprolol CR 50 MG TABCR PO (08:35)
[2017-12-18] MEDS: Insulin Aspart 300 UNITS/3 ML PEN SC ×3 (08:35→17:52)
[2017-12-18] MEDS: Pantoprazole 40 MG TABCR PO (08:35)
--- NOTE | 2017-12-18 14:22 | PDOC.CMACT ---
- If Service Date Differs Date of service: 12/18/17 Time of Service: 14:22 Care Management Activity Note S/O: Sherry has been visited by family throughout the week. She has been leaving daily with family to receive treatments at [facility]. She reports that she enjoys visiting, her spouse visits often from [facility]. Sherry has reading material,she has been offered reiki and music therapy. CM met with patient daily to provide update and review current events. Sherry has a television in the room and phone she has been able to contact her daughter over the phone as needed. P: SB2 for two weeks while safe discharge plan is being determined to return home. Shrery's daughter has retained a ground floor apartment and is process of preparing it for Sherry. Sherry will have new home health services at time of discharge including PT/OT she will also benefit from PLUMBING MECHANIC to address resources and psychosocial needs in the community. Palliative will continue to follow. CM completed financial assistance paperwork with Sherry.
--- NOTE | 2017-12-18 14:27 | CMACTNOTE_ITS ---
- If Service Date Differs Date of service: 12/18/17 Time of Service: 14:22 Care Management Activity Note S/O: Sherry has been visited by family throughout the week. She has been leaving daily with family to receive treatments at [facility]. She reports that she enjoys visiting, her spouse visits often from [facility]. Sherry has reading material,she has been offered reiki and music therapy. CM met with patient daily to provide update and review current events. Sherry has a television in the room and phone she has been able to contact her daughter over the phone as needed. P: SB2 for two weeks while safe discharge plan is being determined to return home. Sherry's daughter has retained a ground floor apartment and is process of preparing it for Sherry. Sherry will have new home health services at time of discharge including PT/OT she will also benefit from BAG SEWER to address resources and psychosocial needs in the community. Palliative will continue to follow. CM completed financial assistance paperwork with Sherry.
[2017-12-18] MEDS: Patch Removal 1 EACH TP (14:28)
[2017-12-18] MEDS: fentaNYL 12 MCG PATCH TD (14:28)
[2017-12-18 15:48] VITALS: BP 115/69; PULSE 82; RESP 20; TEMP 35.9; O2SAT 95
[2017-12-18] MEDS: Simvastatin 10 MG TAB PO (20:46)
[2017-12-18] MEDS: Polyethylene Glycol 3350 17 GM PACKET PO (20:52)
[2017-12-19 00:35] VITALS: BP 111/67; PULSE 90; RESP 16; TEMP 37.6; O2SAT 93
[2017-12-19] MEDS: Heparin 5,000 UNITS/ML VIAL 5000 UNITS SC ×2 (06:48→21:46)
[2017-12-19 07:50] VITALS: BP 108/59; PULSE 77; RESP 18; TEMP 36.1; O2SAT 92
[2017-12-19] MEDS: metFORMIN 500 MG TAB PO ×2 (08:44→17:23)
[2017-12-19] MEDS: Pantoprazole 40 MG TABCR PO (08:45)
[2017-12-19] MEDS: Potassium Chloride 10 MEQ CAPCR 20 MEQ PO (08:45)
[2017-12-19] MEDS: Magnesium Chloride 64 MG TABCR PO ×2 (08:45→20:00)
[2017-12-19] MEDS: Aspirin E.C. 81 MG TABEC PO (08:45)
[2017-12-19] MEDS: Metoprolol CR 50 MG TABCR PO (08:45)
[2017-12-19] MEDS: Insulin Aspart 300 UNITS/3 ML PEN SC ×3 (08:50→17:25)
[2017-12-19 16:15] VITALS: BP 101/61; PULSE 77; RESP 20; TEMP 36.3; O2SAT 98
[2017-12-19 19:03] VITALS: BP 93/47; PULSE 76; RESP 16; TEMP 37.1; O2SAT 95
[2017-12-19] MEDS: Simvastatin 10 MG TAB PO (21:46)
[2017-12-20 00:33] VITALS: BP 143/79; PULSE 101; RESP 18; TEMP 37.8; O2SAT 91
[2017-12-20 04:02] VITALS: BP 100/64; PULSE 89; RESP 18; TEMP 37.3; O2SAT 91
[2017-12-20] MEDS: Heparin 5,000 UNITS/ML VIAL 5000 UNITS SC ×3 (06:39→21:13)
[2017-12-20 07:15] VITALS: BP 106/70; PULSE 82; RESP 18; TEMP 36.6; O2SAT 94
[2017-12-20] MEDS: Aspirin E.C. 81 MG TABEC PO (08:21)
[2017-12-20] MEDS: Pantoprazole 40 MG TABCR PO (08:21)
[2017-12-20] MEDS: Magnesium Chloride 64 MG TABCR PO ×2 (08:21→19:36)
[2017-12-20] MEDS: Metoprolol CR 50 MG TABCR PO (08:22)
[2017-12-20] MEDS: Insulin Aspart 300 UNITS/3 ML PEN SC ×3 (08:22→17:21)
[2017-12-20] MEDS: Potassium Chloride 10 MEQ CAPCR 20 MEQ PO (08:22)
[2017-12-20] MEDS: metFORMIN 500 MG TAB PO ×2 (08:22→17:20)
[2017-12-20 17:13] VITALS: BP 101/49; PULSE 87; TEMP 36.9; O2SAT 92
[2017-12-20] MEDS: Simvastatin 10 MG TAB PO (21:13)
[2017-12-21 04:05] VITALS: BP 98/68; PULSE 93; RESP 20; TEMP 36.5; O2SAT 94
[2017-12-21] MEDS: Heparin 5,000 UNITS/ML VIAL 5000 UNITS SC ×3 (05:13→21:19)
[2017-12-21 07:30] VITALS: BP 102/58; PULSE 88; RESP 18; TEMP 36.5; O2SAT 95
[2017-12-21] MEDS: Metoprolol CR 50 MG TABCR PO (08:14)
[2017-12-21] MEDS: Pantoprazole 40 MG TABCR PO (08:14)
[2017-12-21] MEDS: Magnesium Chloride 64 MG TABCR PO ×2 (08:14→19:57)
[2017-12-21] MEDS: Potassium Chloride 10 MEQ CAPCR 20 MEQ PO (08:14)
[2017-12-21] MEDS: metFORMIN 500 MG TAB PO ×2 (08:14→16:49)
[2017-12-21] MEDS: Aspirin E.C. 81 MG TABEC PO (08:14)
[2017-12-21] MEDS: Insulin Aspart 300 UNITS/3 ML PEN SC ×3 (08:16→16:49)
[2017-12-21] MEDS: fentaNYL 12 MCG PATCH TD (13:20)
[2017-12-21] MEDS: Patch Removal 1 EACH TP (13:21)
[2017-12-21] MEDS: Ondansetron O.D.T. 4 MG TABEF PO (13:21)
[2017-12-21 16:18] VITALS: BP 106/61; PULSE 84; RESP 18; TEMP 36.5; O2SAT 95
[2017-12-21] MEDS: Simvastatin 10 MG TAB PO (21:18)
[2017-12-21] MEDS: Polyethylene Glycol 3350 17 GM PACKET PO (21:19)
[2017-12-22 02:24] VITALS: BP 105/61; PULSE 93; RESP 16; TEMP 36.9; O2SAT 97
[2017-12-22] MEDS: Heparin 5,000 UNITS/ML VIAL 5000 UNITS SC ×3 (06:26→21:29)
[2017-12-22 07:15] VITALS: BP 109/61; PULSE 82; RESP 18; TEMP 36.5; O2SAT 95
[2017-12-22] MEDS: Pantoprazole 40 MG TABCR PO (08:12)
[2017-12-22] MEDS: Magnesium Chloride 64 MG TABCR PO ×2 (08:12→20:42)
[2017-12-22] MEDS: metFORMIN 500 MG TAB PO ×2 (08:12→17:30)
[2017-12-22] MEDS: Metoprolol CR 50 MG TABCR PO (08:12)
[2017-12-22] MEDS: Aspirin E.C. 81 MG TABEC PO (08:13)
[2017-12-22] MEDS: Potassium Chloride 10 MEQ CAPCR 20 MEQ PO (08:13)
[2017-12-22] MEDS: Insulin Aspart 300 UNITS/3 ML PEN SC ×3 (08:14→17:30)
[2017-12-22 15:33] VITALS: BP 106/68; PULSE 85; RESP 18; TEMP 36.9; O2SAT 98
--- NOTE | 2017-12-22 18:32 | PDOC.CMPRO ---
- If Service Date Differs Date of service: 12/22/17 Time of Service: 18:32 Care Management Progress Note S/O: CM met with Sherry and her daughter she is sitting up eating and visiting. Sherry's apartment is almost complete she will be discharged on Saturday with new home health services. She will need Nursing, PT, OT and SIGN WRITER LETTERER OR PAINTER. She is tearful when she talks about going home she is worried that she will need to take care of her spouse once she is home. She feels that she is not well enough to care for him at herself. He is being released from SNF Saturday. CM will follow up with Home health to review services for both patient and her spouse. Sherry continues to receive her chemo and radiation and reports her pain is well controlled. A: Sherry is a 62 year old female in Sb2 awaiting her apartment change. Sherry is currently being treated for rectal cancer. P: Sherry will be discharged home with new home health services, nursing, pt, ot and pickling machine operator. Her daughter will plan to transport her home on Saturday12/25/17. She will resume services through [facility].
--- NOTE | 2017-12-22 18:38 | CMPROGNOTE_ITS ---
- If Service Date Differs Date of service: 12/22/17 Time of Service: 18:32 Care Management Progress Note S/O: CM met with Sherry and her daughter she is sitting up eating and visiting. Sherry's apartment is almost complete she will be discharged on Saturday with new home health services. She will need Nursing, PT, OT and MARKETING PROPOSAL SPECIALIST. She is tearful when she talks about going home she is worried that she will need to take care of her spouse once she is home. She feels that she is not well enough to care for him at herself. He is being released from SNF Saturday. CM will follow up with Home health to review services for both patient and her spouse. Sherry continues to receive her chemo and radiation and reports her pain is well controlled. A: Sherry is a 62 year old female in Sb2 awaiting her apartment change. Sherry is currently being treated for rectal cancer. P: Sherry will be discharged home with new home health services, nursing, pt, ot and motor vehicle lecturer. Her daughter will plan to transport her home on Saturday12/25/17. She will resume services through [facility].
[2017-12-22] MEDS: Simvastatin 10 MG TAB PO (21:29)
[2017-12-23 04:00] VITALS: BP 129/77; PULSE 57; RESP 16; TEMP 35.5; O2SAT 95
[2017-12-23] MEDS: Heparin 5,000 UNITS/ML VIAL 5000 UNITS SC ×3 (05:03→22:21)
[2017-12-23 05:10] VITALS: BP 95/58; PULSE 89; RESP 16; TEMP 36.6; O2SAT 95
[2017-12-23 05:58] VITALS: BP 100/60
[2017-12-23 07:40] VITALS: BP 95/58; PULSE 83; RESP 22; TEMP 36.1; O2SAT 96
[2017-12-23] MEDS: Insulin Aspart 300 UNITS/3 ML PEN SC ×3 (07:58→17:07)
[2017-12-23] MEDS: Magnesium Chloride 64 MG TABCR PO ×2 (07:58→20:24)
[2017-12-23] MEDS: metFORMIN 500 MG TAB PO ×2 (07:58→17:07)
[2017-12-23] MEDS: Potassium Chloride 10 MEQ CAPCR 20 MEQ PO (07:59)
[2017-12-23] MEDS: Aspirin E.C. 81 MG TABEC PO (07:59)
[2017-12-23] MEDS: Pantoprazole 40 MG TABCR PO (07:59)
[2017-12-23] MEDS: Metoprolol CR 50 MG TABCR PO (07:59)
[2017-12-23 16:08] VITALS: BP 150/78; PULSE 92; RESP 18; TEMP 36.4; O2SAT 100
[2017-12-23] MEDS: Polyethylene Glycol 3350 17 GM PACKET PO (22:21)
[2017-12-23] MEDS: Simvastatin 10 MG TAB PO (22:21)
[2017-12-24] MEDS: Heparin 5,000 UNITS/ML VIAL 5000 UNITS SC ×3 (04:49→21:44)
[2017-12-24 05:02] VITALS: BP 116/74; PULSE 82; RESP 18; TEMP 36.1; O2SAT 94
[2017-12-24] MEDS: Pantoprazole 40 MG TABCR PO (08:08)
[2017-12-24] MEDS: Magnesium Chloride 64 MG TABCR PO ×2 (08:08→20:28)
[2017-12-24] MEDS: Metoprolol CR 50 MG TABCR PO (08:08)
[2017-12-24] MEDS: Potassium Chloride 10 MEQ CAPCR 20 MEQ PO (08:08)
[2017-12-24] MEDS: Insulin Aspart 300 UNITS/3 ML PEN SC ×3 (08:09→17:33)
[2017-12-24] MEDS: Aspirin E.C. 81 MG TABEC PO (08:09)
[2017-12-24] MEDS: metFORMIN 500 MG TAB PO ×2 (08:09→17:30)
[2017-12-24 11:05] VITALS: BP 109/64; PULSE 89; RESP 18; TEMP 36.6; O2SAT 95
--- NOTE | 2017-12-24 13:45 | PDOC.CMPRO ---
- If Service Date Differs Date of service: 12/24/17 Time of Service: 13:45 Care Management Progress Note S/O: Sherry is lying in bed when CM visits this morning. She reports that she is sleepy but is talkative and denies pain. Sherry continues to receive her chemo and radiation at [facility] and has appointments scheduled today and tomorrow at 1530. Her daughter will transport her to both of these appointments. She will need Nursing, PT, OT and STEEL RULE INSPECTOR. A: 62 year old female SB2 status for debility following admission for urosepsis. P: Sherry will be discharged home with new home health services; Nursing, PT, OT, STEEL RULE INSPECTOR. She will additionally resume services through [facility]. Sherry will transport home via private vehicle with her daughter, tentatively scheduled for 12/25/17. will continue to offer support to patient, family, and care team regarding discharge planning and disposition.
--- NOTE | 2017-12-24 13:53 | CMPROGNOTE_ITS ---
- If Service Date Differs Date of service: 12/24/17 Time of Service: 13:45 Care Management Progress Note S/O: Sherry is lying in bed when CM visits this morning. She reports that she is sleepy but is talkative and denies pain. Sherry continues to receive her chemo and radiation at [facility] and has appointments scheduled today and tomorrow at 1530. Her daughter will transport her to both of these appointments. She will need Nursing, PT, OT and DIGITAL ASSET COORDINATOR. A: 62 year old female SB2 status for debility following admission for urosepsis. P: Sherry will be discharged home with new home health services; Nursing, PT, OT , DIGITAL ASSET COORDINATOR. She will additionally resume services through [facility]. Sherry will transport home via private vehicle with her daughter, tentatively scheduled for 12/25/17. will continue to offer support to patient, family, and care team regarding discharge planning and disposition.
[2017-12-24] MEDS: fentaNYL 12 MCG PATCH TD (14:47)
[2017-12-24] MEDS: Patch Removal 1 EACH TP (14:47)
[2017-12-24 16:00] VITALS: BP 95/49; PULSE 85; RESP 18; TEMP 36.6; O2SAT 98
[2017-12-24 16:22] VITALS: BP 96/49; RESP 18; TEMP 36.6; O2SAT 98
[2017-12-24 19:42] VITALS: BP 106/65
[2017-12-24] MEDS: Simvastatin 10 MG TAB PO (20:29)
[2017-12-25 00:30] VITALS: BP 73/29; PULSE 92; RESP 16; TEMP 37.4; O2SAT 94
[2017-12-25 00:35] VITALS: BP 90/40
[2017-12-25 01:04] VITALS: BP 95/58
[2017-12-25 02:10] VITALS: BP 98/55
[2017-12-25] MEDS: Heparin 5,000 UNITS/ML VIAL 5000 UNITS SC (06:55)
[2017-12-25 07:15] VITALS: BP 109/51; PULSE 81; RESP 18; TEMP 36.1; O2SAT 94
[2017-12-25] MEDS: Insulin Aspart 300 UNITS/3 ML PEN SC ×2 (08:06→11:51)
[2017-12-25] MEDS: Potassium Chloride 10 MEQ CAPCR 20 MEQ PO (08:07)
[2017-12-25] MEDS: Magnesium Chloride 64 MG TABCR PO (08:07)
[2017-12-25] MEDS: Metoprolol CR 50 MG TABCR PO (08:07)
[2017-12-25] MEDS: metFORMIN 500 MG TAB PO (08:07)
[2017-12-25] MEDS: Aspirin E.C. 81 MG TABEC PO (08:07)
[2017-12-25] MEDS: Pantoprazole 40 MG TABCR PO (08:07)
--- NOTE | 2017-12-25 10:44 | PDOC.CMDIS ---
- If Service Date Differs Date of service: 12/25/17 Time of Service: 10:44 LACE Index Scoring Tool - Questions: Length of Stay (in days): 14 or more Acuity (Admit via E.D.?): Yes Comorbidities: Diabetes w/o Complication, Metastatic Solid Tumor E.D. Visits: 2 - Answers: Total Score: 17 Risk of Readmission: High Risk Care Management Discharge Reason for Hospitalization: Debility following urosepsis admission. Discharge Plan: Sherry will discharge home when medically ready per MD. Anticipate patient will discharge with home health nursing, PT/OT and follow up with PCP. Sherry will transport via private vehicle with her friend, Judy. Patient/Family Education Needs: Discharge education, any limitations, and follow up plan of care. Ask Me Three discussion. Services Needed at Discharge: Home Health Care Services ([facility]), Occupational Therapy, Physical Therapy
--- NOTE | 2017-12-25 10:51 | CMDISCH_ITS ---
- If Service Date Differs Date of service: 12/25/17 Time of Service: 10:44 LACE Index Scoring Tool - Questions: Length of Stay (in days): 14 or more Acuity (Admit via E.D.?): Yes Comorbidities: Diabetes w/o Complication, Metastatic Solid Tumor E.D. Visits: 2 - Answers: Total Score: 17 Risk of Readmission: High Risk Care Management Discharge Reason for Hospitalization: Debility following urosepsis admission. Discharge Plan: Sherry will discharge home when medically ready per MD. Anticipate patient will discharge with home health nursing, PT/OT and follow up with PCP. Sherry will transport via private vehicle with her friend, Judy. Patient/Family Education Needs: Discharge education, any limitations, and follow up plan of care. Ask Me Three discussion. Services Needed at Discharge: Home Health Care Services ([facility]), Occupational Therapy, Physical Therapy
--- NOTE | 2017-12-25 11:01 | DSE_ITS ---
Date of service: 12/25/17 Time of Service: 10:58 DS: Diagnosis Discharge Diagnosis (1) Peripheral edema: Status: Acute (2) Cancer related pain: Status: Chronic (3) Goals of care, counseling/discussion: Status: Acute (4) Hypokalemia: Status: Acute (5) UTI (urinary tract infection): Status: Acute (6) Sepsis: Status: Acute (7) Anal cancer: Status: Chronic (8) Acute kidney failure: Status: Acute (9) Hypomagnesemia: Status: Acute (10) Anemia: Status: Acute (11) SVT (supraventricular tachycardia): Status: Acute (12) Varicose veins of lower extremity: Status: Acute (13) Hypothyroidism: Status: Chronic (14) Hyperlipidemia: Status: Chronic (15) Gastroesophageal reflux disease: Status: Chronic (16) Essential hypertension: Status: Chronic (17) Diabetes mellitus: Status: Chronic Discharge Plan Discharge Details Reason For Visit: DEBILITY FOLLOWING UROSEPSIS ADMISSION Admit Date/Time: 12/12/17 11:50 Admit Provider: Chris Trotter Attending Provider: Chris Trotter Primary Care Provider: Diane Leblanc Hospital Course Hospital Course: Mrs. Werner is a 62-year-old woman who was admitted to acute hospital stay from the [facility] on 12/04/17, after initiating chemotherapy and radiation therapy the day prior. She presented back to the cancer center complaining of fevers chills and malaise, without complaints of cough chest pain dysuria nausea vomiting or diarrhea. She had had ongoing pain in the inguinal area secondary to her recently diagnosed anal cancer. She was febrile, hypotensive, with lactic acidosis, hyponatremia and leukocytosis. Cultures were obtained and she was started on broad-spectrum antibiotics pending results. She was admitted to the ICU for fluid resuscitation and pressor support because of her sepsis presentation. With aggressive fluid resuscitation and pressors her blood pressure stabilized. She had episodes of SVT that resolved without intervention initially. Her blood cultures remain sterile. Her urine culture grew E. coli resistant to fluoroquinolones, sensitive to all other antibiotics. She was transitioned off of parenteral antibiotics to oral cephalexin which she completed on swing bed status. During her acute stay, she continued to have brief runs of SVT and isolated short asymptomatic runs of wider complex tachyarrhythmias. She was started on long acting metoprolol, her heart rates remained at an appropriate level, however, her systolic blood pressure was in the 90s to low 100s and she felt light headed. Due to her hypotension at her initial presentation, her JOSÉ LUIS inhibitor was stopped and has not been restarted. At the time of discharge, her metoprolol dose was decreased to 25 mg daily. She will need outpatient follow up of her heart rate and blood pressure. Her lisinopril was discontinued as her blood pressures were well managed with beta willian therapy alone. She had continued pain from her anal cancer that was treated with resumption of her outpatient dose of fentanyl and as needed doses of short acting morphine. She had no adverse effects from the opiates and good pain control overall. Her blood sugars were mildly elevated during her hospitalization. She will need outpatient follow up for her diabetes as well. She had acute kidney injury during her acute hositalization which steadily improved throughout her stay. Her most recent BMP revealed normal kidney function on 12/18/17. She had a hemoglobin moses of 6.7 for which she received 2 units of packed red blood cells. Her hemoglobin remained stable at 8.6 thereafter. She transitioned from acute level of care to swing bed on 12/12/17. She continued her outpatient radiation for her rectal cancer. Upon her discharge from this swing bed stay she will be discharged home with home PT/OT/RN. Will plan to have home health monitor her blood pressures and heart rates as well as her fingersticks and her medications. She will follow up as scheduled with her PCP. Her daughter is looking into additional services to help meet her needs at home. Home Meds and New Rx's Prescriptions: New metformin 500 mg Tablet 500 mg PO BID@0800,1700 Qty: 60 RF: 0 morphine 15 mg Tablet 15 mg PO BID PRN PRNQty: 6 RF: 0 pantoprazole 40 mg Tablet,Delayed Release (Dr/Ec) 40 mg PO DAILY@0730 Qty: 30 RF: 0 morphine 15 mg Tablet Extended Release 15 mg PO BID Qty: 28 RF: 0 metoprolol succinate 25 mg tablet extended release 24 hr 25 mg PO DAILY Qty: 30 RF: 0 Continue aspirin [Ecotrin Low Strength] 81 MG tablet,delayed release (DR/EC) 1 tab PO DAILY RF: 0 acetaminophen 500 MG tablet 1 tab PO PRN RF: 0 calcium carbonate 500 MG tablet 1 tab.chew PO BID RF: 0 blood-glucose meter 1 EACH misc 1 ea Miscellaneous DAILY Qty: 1 RF: 0 ascorbic [id number] [Emergen-C] 1,000 MG powder effervescent in packet 1 packet PO PRN RF: 0 fluocinolone [Synalar] 120 GM ointment 1 applic Topical BID Qty: 1 RF: 2 simvastatin [Zocor] 10 MG tablet 1 tab PO HS Qty: 90 RF: 4 lancets 1 EACH misc 1 ea Miscellaneous BID Qty: 200 RF: 4 blood sugar diagnostic [Blood Glucose Test] 1 EACH strip 1 ea Miscellaneous BID Qty: 200 RF: 4 levothyroxine [Synthroid] 137 MCG tablet 1 tab PO DAILY Qty: 90 RF: 4 polyethylene glycol 3350 17 gram/dose powder 17 gm PO DAILY PRN (Reason: constipation) Qty: 255 RF: 2 fentanyl 12 mcg/hr Patch 72 Hour 12.5 mcg Transdermal DIRECTED RF: 0 naloxone [Narcan] 4 mg/actuation spray,non-aerosol 1 spray JORGE ONCE PRN (Reason: opioid overdose) Qty: 2 RF: 0 ondansetron [Zofran ODT] 4 mg Tablet,Disintegrating 4 mg PO PRN PRNRF: 0 Discharge Instructions Instructions: Supraventricular Tachycardia (DC), Colorectal Cancer (DC) Additional Instructions: You will have new home health services including Nursing, PT and OT. Dr. Huggins's office will contact you for a follow up appointment at home. You will need to continue taking Metoprolol to prevent your heart from going too fast. We will ask home health to monitor your blood pressure and heart rate. You do not need to take lisinopril for blood pressure, this has been stopped. Continue radiation as usual. Stand Alone Forms: Nursing Discharge Form Referrals: [facility] [Provider Group] (Follow up as scheduled.) Diane Leblanc NP [Primary Care Provider] - 01/02/18 8:40 am Verenice Huggins MD [ [facility] STAFF PHYSICIAN] - (Palliative office will contact your for follow up at home.) Activity:: Activity as Tolerated Activity:: Activity as Tolerated Equipment/Supplies:: No Equipment Needed Diet:: As Tolerated Exam Const General: cooperative, comfortable and no acute distress Orientation: alert, awake and oriented x3 HENMT Head: normocephalic and atraumatic Mouth: moist mucous membranes Neck Neck: supple and no JVD Resp Auscultation: clear to auscultation bilaterally Cardio Rate: regular rate and not tachycardic Rhythm: regular rhythm GI Palpation: soft and nontender Extrem General: no clubbing, cyanosis or edema DS: Data Vitals/I&O Vitals and I&O: Vital Signs Temperature 36.1 C L 12/25/17 07:15 Temperature Source Tympanic 12/25/17 07:15 Pulse 81 12/25/17 07:15 Pulse Rhythm Regular 12/25/17 08:10 Respiratory Rate 18 12/25/17 07:15 Respiratory Effort Non-Labored 12/25/17 08:10 Respiratory Depth Normal 12/25/17 08:10 Respiratory Pattern Normal 12/25/17 08:10 Blood Pressure 109/51 L 12/25/17 07:15 Pulse Oximetry 94 L 12/25/17 07:15 Oxygen Delivery Method Room Air 12/25/17 07:15 Oxygen Flow Rate 0 12/25/17 07:15 Pain Level 4 12/25/17 08:10 Comment 12/25/17 02:10 Intake & Output 12/24/17 12/24/17 12/25/17 11:59 23:59 11:59 Intake Total 540 / 540 740 / 740 Output Total 900 / 900 500 / 500 200 / 200 Balance -360 / -360 -500 / -500 540 / 540 Weight 95.1 kg 96.6 kg Intake: Oral 540 / 540 740 / 740 Output: Urine 900 / 900 500 / 500 200 / 200 Other: Urine Color Yellow Light Krupa Yellow Urine Appearance Clear Clear Clear Urine Odor Strong Strong None Comment mixed with loose stools Stool Size Small Small Stool Characteristics Soft Soft Liquid Brown Voiding Methods Bedside Commode Bedside Commode Bedside Commode
--- NOTE | 2017-12-25 11:59 | PDOC.HHF2F ---
1. Encounter Date and Reason I certify that EVERETT JENKINS was seen by Jennie Owens on 12/25/17 and that I had a [id number] encounter with this patient that meets the physician face to face encounter requirements. 2. Clinical Findings Supporting Skilled Need and Homebound Status I certify that home health services are medically necessary, include either intermittent long-term and/or physical/speech therapy, and that this patient is homebound in that absences from the home require considerable and taxing effort and are infrequent or of short duration, or are attributable to the need to receive medical care. [X] (a) Attached documentation from encounter provides clinical findings supporting skilled need and homebound status (including what assistance patient requires to leave the home). The encounter with the patient was in whole, or in part, for the following medical condition, which is the primary reason for home health care: DEBILITY FOLLOWING UROSEPSIS ADMISSION, rectal cancer, SVT Long Term: Needed to monitor medical conditions, monitor HR and BP, monitor medications, monitor fingersticks. Physical Therapy: Needed to continue to strengthen after hospitalization in patient going through treatment for rectal cancer. OT: needed for evaluation/treatment of ability to preform ADL/IADLs. Speech Therapy: Homebound: Unable to leave home without assistance. 3. Certification and Authentication I certify that I composed the above information based on my clinical judgement relating to this patient's medical condition and, if applicable, clinical findings communicated to me by the NPP or inpatient physician who performed the Home Health Referral. All further orders will be obtained through ____Dr. Riggins (Cash GARZA IS PCP) (Community Based Physician - PCP)
--- NOTE | 2017-12-25 12:02 | HHF2F_ITS ---
1. Encounter Date and Reason I certify that EVERETT JENKINS was seen by Jennie Owens on 12/25/17 and that I had a [id number] encounter with this patient that meets the physician face to face encounter requirements. 2. Clinical Findings Supporting Skilled Need and Homebound Status I certify that home health services are medically necessary, include either intermittent alf and/or physical/speech therapy, and that this patient is homebound in that absences from the home require considerable and taxing effort and are infrequent or of short duration, or are attributable to the need to receive medical care. [X] (a) Attached documentation from encounter provides clinical findings supporting skilled need and homebound status (including what assistance patient requires to leave the home). The encounter with the patient was in whole, or in part, for the following medical condition, which is the primary reason for home health care: DEBILITY FOLLOWING UROSEPSIS ADMISSION, rectal cancer, SVT Senior Care: Needed to monitor medical conditions, monitor HR and BP, monitor medications, monitor fingersticks. Physical Therapy: Needed to continue to strengthen after hospitalization in patient going through treatment for rectal cancer. OT: needed for evaluation/treatment of ability to preform ADL/IADLs. Speech Therapy: Homebound: Unable to leave home without assistance. 3. Certification and Authentication I certify that I composed the above information based on my clinical judgement relating to this patient's medical condition and, if applicable, clinical findings communicated to me by the NPP or inpatient physician who performed the Home Health Referral. All further orders will be obtained through ____Dr. Riggins (Cash GARZA IS PCP)_ (Community Based Physician - PCP)
--- NOTE | 2018-01-02 13:24 | OT.INDS ---
Date of service: 12/13/17 Time of Service: 10:43 Occupational Therapy Notes Occupational Therapy Inpatient Discharge Summary Date: 12/13/17 for 12/12/17 Dates of Service: 12/10/17-12/12/17 SUBJECTIVE: Not tested. 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 Bathing LE Progressed from sitting in chair pt able to wash her upper thighs, denies ability to wash lower legs/ feet stating she has too much swelling in her feet. OT provided max (A) for lower legs and feet, to Pt able to perfrom LE bathing with min (A) sitting in chair for LE and feet. DRESSING Upper body: Pt (I) with UE dressing. Lower Body: Pt progressed from max (A) to min (A). Pt able to perform LE dressing laying supine in bed. TOILETING: Pt progressed from using bedside commode to being able to perform toileting routine on toilet with mod (A) for wiping after bowel movement. ASSESSMENT: Patient is a 62-year-old female referred to occupational therapy services with diagnosis of loss of ADLs when admitted with septic shock, urinary tract infection in setting of squamous cell carcinoma of the anus in setting of diabetes mellitus, anemia, supraventricular tachycardia. Patient presents with the following impairment level findings: Decreased functional activity tolerance, decreased (I) in ADLs including toileting, dressing, bathing, decreased strength (R) UE, and functional mobility performed with FWW. Pt was seen for 3 OT sessions and progressed from needing max (A) for LE bathing in sitting position to min (A). Pt still requiring min to mod (A) for wiping post bowel movement however, pt educated on adaptive equipment but pt reports she can have her daughter come in and help as needed. No need for skilled OT services at this time. Pt able to dress LE in the supine position, pt able to perform bathing sitting and denies going to shower during OT session stating that she can do it and pt able to toilet on toilet still requires min (A) for wiping but education provided in previous OT session on use of adaptive equipment. Recommend that pt return home when medically cleared. GOALS 1. Dressing Mod (I) donning socks, (I) donning pants and underwear. 2. Bathing standing in shower, (I) with UE/ LE bathing 3. Toileting on toilet (I) with wiping using adaptive equipment for rectum. Pt did not meet goals, however pt denies the need for adaptive equipment for dressing during OT sessions stating that she will be able to perform once swelling goes down. And pt denies the need for education in safe transferring and bathing standing in shower standing that she can do this as well once the swelling goes down. Pt is able to don and doff socks (I) in the supine position with no adaptive equipment. DISCHARGE RECOMMENDATIONS: Home TREATMENT CODES/TIME: G Codes in the area of self- : washing oneself, toileting, dressing, eating and drinking, current status [id number] projected status GO [id number]. Discharge status (if discharging) GO [id number]
== END 2017-12-25 15:05 | disposition home health service (06) | DRG 947 ==
PROVIDERS: Internal Medicine; Admitting Provider Internal Medicine; Visit Provider Internal Medicine
DX: N39.0 Urinary tract infection, site not specified (principal); N17.9 Acute kidney failure, unspecified; Z73.89 Other problems related to life management difficulty; R53.81 Other malaise; A41.9 Sepsis, unspecified organism; R60.0 Localized edema; G89.3 Neoplasm related pain (acute) (chronic); C21.0 Malignant neoplasm of anus, unspecified; E87.6 Hypokalemia; E83.42 Hypomagnesemia; D63.0 Anemia in neoplastic disease; E89.0 Postprocedural hypothyroidism; E78.5 Hyperlipidemia, unspecified; K21.9 Gastro-esophageal reflux disease without esophagitis; I10 Essential (primary) hypertension; E11.9 Type 2 diabetes mellitus without complications; Z79.84 Long term (current) use of oral hypoglycemic drugs
CPT/HCPCS: 36415; 80048; 85027; 97530; 99239; 99305; 99309; 99316; 83735; 85014; 85018; J1644; J3490

== ENCOUNTER 2017-12-27 10:37 | Outpatient (CLI) | payer OTHER, SELFPAY ==
[2017-12-27 14:13] LABS: Abs Immature Grans 0.13 k/cumm (0.0-0.09); HCT 28.6 % (36.0-46.0); HGB 8.8 g/dL (12.0-15.5); Mean Corp. HGB Concentration 30.8 g/dL (32.0-36.0); Mean Corpuscular Hemoglobin 27.5 pg (27.0-33.0); Mean Corpuscular Volume 89.4 fL (80-95); Mean Platelet Volume 8.2 fL (8.0-11.0); Platelet Count 249 x1000/uL (130-400); White Blood Cell Count 2.72 k/cumm (4.4-10.8)
[2017-12-27 14:32] LABS: Absolute Eosinophil Count 0.03 k/cumm (0.0-0.7); Absolute Lymphocyte Count 0.35 k/cumm (1.2-3.4); Absolute Monocyte Count 0.33 k/cumm (0.11-0.7)
[2017-12-27 14:33] LABS: Anisocytosis 2+; Diff Comment Manual Differential; Hypochromasia 1+; Polychromasia Present
[2017-12-27 14:38] LABS: ALT 22 U/L (12-78); AST 23 U/L (15-37); Alkaline Phosphatase 97 U/L (46-116); Anion Gap 9.7 mmol/L (3-11); BUN 8 mg/dL (7-18); Bilirubin, Total 0.2 mg/dL (0.2-1.0); CO2 28.3 mmol/L (21.0-32.0); Calcium 8.5 mg/dL (8.5-10.1); Chloride 96 mmol/L (98-107); Estimated GFR 55.82 (mL/min/1.73m2); Glucose 172 mg/dL (70-100); Potassium 3.7 mmol/L (3.5-5.1); Sodium 134 mmol/L (136-145); Total Protein 6.8 g/dL (6.4-8.2)
== END 2017-12-27 10:57 ==
PROVIDERS: Visit Provider Internal Medicine Hematology & Oncology
DX: C21.0 Malignant neoplasm of anus, unspecified (principal)
CPT/HCPCS: 36415; 80053; 87389; 85025

== ENCOUNTER 2017-12-27 14:04 | Outpatient (REF) | payer OTHER, SELFPAY ==
[2017-12-27 14:27] LABS: Bilirubin Negative (Negative); Blood Small (Negative); Clarity Sl Cloudy; Glucose 100 mg/dL (Negative); Ketones Negative (Negative); Leukocyte Esterase Moderate (Negative); Nitrite Negative (Negative); Specific Gravity <= 1.005 (1.005-1.025); Urobilinogen 0.2 EU/dL (Up TO 0.2)
[2017-12-27 14:44] LABS: Bacteria Moderate HPF (Negative); C & S Indicated? Yes; Casts Negative LPF (Negative); Crystals Negative HPF (Negative); Epithelial Cells Rare HPF (Negative); Mucus Negative (Negative); Other Cells Rare Transitional (Negative); WBC >50 HPF (0-5)
== END 2017-12-27 14:24 ==
LOC: LBN 14:04
PROVIDERS: Visit Provider Radiology Radiation Oncology
DX: C21.0 Malignant neoplasm of anus, unspecified (principal); R82.90 Unspecified abnormal findings in urine; R82.79 Other abnormal findings on microbiological examination of urine
CPT/HCPCS: 81003; 81015; 87086

== ENCOUNTER 2017-12-30 10:44 | Outpatient (CLI) | payer OTHER, SELFPAY ==
[2017-12-30 14:29] LABS: HCT 30.1 % (36.0-46.0); HGB 9.3 g/dL (12.0-15.5); Mean Corp. HGB Concentration 30.9 g/dL (32.0-36.0); Mean Corpuscular Hemoglobin 28.1 pg (27.0-33.0); Mean Corpuscular Volume 90.9 fL (80-95); Mean Platelet Volume 7.9 fL (8.0-11.0); Platelet Count 315 x1000/uL (130-400); RBC 3.31 m/cumm (4.00-5.20); RBC Distribution Width 19.7 % (11.7-14.6); White Blood Cell Count 5.29 k/cumm (4.4-10.8)
[2017-12-30 14:44] LABS: ALT 22 U/L (12-78); AST 18 U/L (15-37); Albumin 2.3 g/dL (3.4-5.0); Alkaline Phosphatase 101 U/L (46-116); Anion Gap 10.9 mmol/L (3-11); BUN 12 mg/dL (7-18); Bilirubin, Total 0.3 mg/dL (0.2-1.0); CO2 27.1 mmol/L (21.0-32.0); CREATININE 1.03 mg/dL (0.55-1.02); Calcium 8.8 mg/dL (8.5-10.1); Chloride 95 mmol/L (98-107); Estimated GFR 53.95 (mL/min/1.73m2); Glucose 136 mg/dL (70-100); Potassium 3.8 mmol/L (3.5-5.1); Sodium 133 mmol/L (136-145); Total Protein 7.2 g/dL (6.4-8.2)
[2017-12-30 14:51] LABS: Absolute Neutrophil Count 3.86 k/cumm (1.2-6.7)
[2017-12-30 14:52] LABS: Absolute Eosinophil Count 0.05 k/cumm (0.0-0.7); Absolute Monocyte Count 0.32 k/cumm (0.11-0.7); Anisocytosis 2+; Diff Comment Manual Differential
[2017-12-30 14:53] LABS: Hypochromasia 1+; Polychromasia Present
[2017-12-30 18:48] LABS: Bilirubin Negative (Negative); Blood Trace-intact (Negative); Clarity Clear; Glucose Negative (Negative); Ketones Negative (Negative); Leukocyte Esterase Trace (Negative); Nitrite Negative (Negative); Urobilinogen 0.2 EU/dL (Up TO 0.2); pH 6.5 (5-8)
[2017-12-30 19:24] LABS: Bacteria Few HPF (Negative); C & S Indicated? Yes; Casts Negative LPF (Negative); Crystals Negative HPF (Negative); Epithelial Cells Few HPF (Negative); Mucus Negative (Negative); WBC 20-50 HPF (0-5)
== END 2017-12-30 11:04 ==
PROVIDERS: Visit Provider Internal Medicine Hematology & Oncology
DX: C21.0 Malignant neoplasm of anus, unspecified (principal); N39.0 Urinary tract infection, site not specified
CPT/HCPCS: 36415; 80053; 81003; 81015; 85025; 87086

== ENCOUNTER 2018-01-03 09:38 | Outpatient (CLI) | payer OTHER, SELFPAY ==
[2018-01-03 14:18] LABS: Abs Immature Grans 0.12 k/cumm (0.0-0.09); HGB 9.2 g/dL (12.0-15.5); Mean Corp. HGB Concentration 31.7 g/dL (32.0-36.0); Mean Corpuscular Hemoglobin 28.8 pg (27.0-33.0); Mean Corpuscular Volume 90.9 fL (80-95); Mean Platelet Volume 7.7 fL (8.0-11.0); Platelet Count 311 x1000/uL (130-400); RBC 3.19 m/cumm (4.00-5.20); RBC Distribution Width 21.2 % (11.7-14.6)
[2018-01-03 14:40] LABS: ALT 20 U/L (12-78); AST 16 U/L (15-37); Albumin 2.6 g/dL (3.4-5.0); Alkaline Phosphatase 89 U/L (46-116); Anion Gap 12.8 mmol/L (3-11); BUN 12 mg/dL (7-18); Bilirubin, Total 0.3 mg/dL (0.2-1.0); CO2 24.2 mmol/L (21.0-32.0); CREATININE 1.14 mg/dL (0.55-1.02); Calcium 8.9 mg/dL (8.5-10.1); Chloride 93 mmol/L (98-107); Estimated GFR 47.99 (mL/min/1.73m2); Glucose 114 mg/dL (70-100); Potassium 4.3 mmol/L (3.5-5.1); Sodium 130 mmol/L (136-145); Total Protein 7.1 g/dL (6.4-8.2)
[2018-01-03 14:43] LABS: Absolute Eosinophil Count 0.14 k/cumm (0.0-0.7); Absolute Lymphocyte Count 0.32 k/cumm (1.2-3.4); Absolute Neutrophil Count 3.47 k/cumm (1.2-6.7); Anisocytosis 3+; Diff Comment Manual Differential
[2018-01-03 14:44] LABS: Polychromasia Present
[2018-01-03 14:45] LABS: Poikilocytes 1+
== END 2018-01-03 09:58 ==
PROVIDERS: Visit Provider Internal Medicine Hematology & Oncology
DX: C21.0 Malignant neoplasm of anus, unspecified (principal)
CPT/HCPCS: 36415; 80053; 85025

== ENCOUNTER 2018-01-10 02:07 | Outpatient (CLI) | payer OTHER, SELFPAY ==
[2018-01-10 13:02] LABS: HCT 26.6 % (36.0-46.0); HGB 8.5 g/dL (12.0-15.5); Mean Corpuscular Hemoglobin 29.6 pg (27.0-33.0); Mean Corpuscular Volume 92.7 fL (80-95); Mean Platelet Volume 7.5 fL (8.0-11.0); Platelet Count 241 x1000/uL (130-400); RBC 2.87 m/cumm (4.00-5.20); White Blood Cell Count 2.51 k/cumm (4.4-10.8)
[2018-01-10 13:21] LABS: ALT 18 U/L (12-78); AST 14 U/L (15-37); Albumin 2.5 g/dL (3.4-5.0); Alkaline Phosphatase 84 U/L (46-116); Anion Gap 11.9 mmol/L (3-11); BUN 10 mg/dL (7-18); Bilirubin, Total 0.3 mg/dL (0.2-1.0); CO2 24.1 mmol/L (21.0-32.0); CREATININE 1.02 mg/dL (0.55-1.02); Calcium 8.7 mg/dL (8.5-10.1); Chloride 93 mmol/L (98-107); Estimated GFR 54.56 (mL/min/1.73m2); Glucose 231 mg/dL (70-100); Potassium 4.2 mmol/L (3.5-5.1); Sodium 129 mmol/L (136-145); Total Protein 6.8 g/dL (6.4-8.2)
[2018-01-10 14:02] LABS: Absolute Neutrophil Count 2.23 k/cumm (1.2-6.7)
[2018-01-10 14:03] LABS: Absolute Eosinophil Count 0.08 k/cumm (0.0-0.7); Absolute Lymphocyte Count 0.15 k/cumm (1.2-3.4); Absolute Monocyte Count 0.05 k/cumm (0.11-0.7); Anisocytosis 2+; Diff Comment Manual Differential; Hypochromasia 1+; Macrocytosis 1+; Polychromasia Present
== END 2018-01-10 02:27 ==
PROVIDERS: Visit Provider Internal Medicine Hematology & Oncology
DX: C21.0 Malignant neoplasm of anus, unspecified (principal)
CPT/HCPCS: 36415; 80053; 85025

== ENCOUNTER 2018-01-14 00:56 | Outpatient (CLI) | payer OTHER, SELFPAY ==
--- NOTE | 2018-01-14 10:45 | DI.CT_ITS ---
SYMPTOM/DIAGNOSIS: BEING TREATED FOR ANAL CA, NOW POS UA, ? DEVELOPMENT OF FISTULA ABDOMEN AND PELVIC CT: CT scan of the abdomen and pelvis was performed following the uneventful administration of 50 cc's of Omnipaque 350 intravenously. Arterial images of the liver was performed. Comparison is made with 11/07/17. Rectal contrast was also administered. The liver is normal in size. The liver has a lobulated contour raising the question of hepatic cirrhosis. No hepatic mass is seen. The gallbladder appears negative by CT criteria. There is no biliary ductal dilatation. The portal and superior mesenteric veins are patent. The pancreas and peripancreatic soft tissues are unremarkable as are the spleen and adrenal glands. There is marked renal cortical atrophy of the right kidney. The left kidney shows mild cortical scarring but no solid renal mass or obstruction is identified. The urinary bladder is intact. The reproductive organs are grossly unremarkable. No contrast is seen within the urinary bladder. There is atherosclerosis of the abdominal aorta but no aneurysmal dilatation. No significant abdominal or pelvic adenopathy, ascites or pneumoperitoneum is seen. The degree of thickening seen in the anal region appears somewhat decreased compared to the prior examination. The remainder of the bowel is unremarkable. No evidence of bowel obstruction or inflammation is seen. Degenerative changes are seen in the spine. IMPRESSION: No evidence of contrast seen within the urinary bladder to suggest a fistula however fistula cannot be entirely excluded. Cystogram may be useful for further evaluation. Alternatively a barium enema may also be considered. Persistent rectal wall thickening. Lobulated contour of the liver raising the question of hepatic cirrhosis. Marked right renal cortical atrophy.
[2018-01-14] MEDS: Omnipaque 350 MG/ML 50 ML BTL IJ ×2 (11:49)
== END 2018-01-14 01:16 ==
PROVIDERS: Visit Provider Nurse Practitioner Adult Health
DX: C21.0 Malignant neoplasm of anus, unspecified (principal); K76.89 Other specified diseases of liver; K62.89 Other specified diseases of anus and rectum
CPT/HCPCS: 36415; 80053; 74177; 85025; Q9967

== ENCOUNTER 2018-01-17 02:25 | Outpatient (CLI) | payer OTHER, SELFPAY ==
[2018-01-17 14:42] LABS: Absolute Monocyte Count 0.44 k/cumm (0.11-0.7); HCT 24.6 % (36.0-46.0); HGB 7.8 g/dL (12.0-15.5); Mean Corp. HGB Concentration 31.7 g/dL (32.0-36.0); Mean Corpuscular Volume 94.6 fL (80-95); Platelet Count 148 x1000/uL (130-400); RBC Distribution Width 23.4 % (11.7-14.6); White Blood Cell Count 2.32 k/cumm (4.4-10.8)
[2018-01-17 14:50] LABS: ALT 16 U/L (12-78); AST 15 U/L (15-37); Albumin 2.4 g/dL (3.4-5.0); Alkaline Phosphatase 90 U/L (46-116); Anion Gap 9.5 mmol/L (3-11); BUN 8 mg/dL (7-18); Bilirubin, Total 0.4 mg/dL (0.2-1.0); CO2 26.5 mmol/L (21.0-32.0); CREATININE 1.05 mg/dL (0.55-1.02); Calcium 8.5 mg/dL (8.5-10.1); Chloride 93 mmol/L (98-107); Estimated GFR 52.76 (mL/min/1.73m2); Glucose 164 mg/dL (70-100); Potassium 3.4 mmol/L (3.5-5.1); Sodium 129 mmol/L (136-145); Total Protein 6.8 g/dL (6.4-8.2)
[2018-01-17 15:37] LABS: Absolute Neutrophil Count 1.62 k/cumm (1.2-6.7)
[2018-01-17 15:38] LABS: Absolute Eosinophil Count 0.05 k/cumm (0.0-0.7); Absolute Lymphocyte Count 0.21 k/cumm (1.2-3.4); Anisocytosis 3+; Atypical Lymphocytes % 1; Diff Comment Manual Differential; Nucleated RBC 1 /100WBC
[2018-01-17 15:39] LABS: Macrocytosis 1+; Microcytosis 1+; Polychromasia Present
== END 2018-01-17 02:45 ==
PROVIDERS: Visit Provider Internal Medicine Hematology & Oncology
DX: C21.0 Malignant neoplasm of anus, unspecified (principal)
CPT/HCPCS: 36415; 80053; 85025

== ENCOUNTER 2018-01-31 14:30 | Emergency (ER) | payer OTHER, SELFPAY ==
[2018-01-31] VITALS (42 sets, daily range): BP systolic 80–108; BP diastolic 47–68; PULSE 87–156; RESP 11–34; TEMP 36.8; O2SAT 90–99
--- NOTE | 2018-01-31 15:10 | DI.RAD_ITS ---
SYMPTOM/DIAGNOSIS: TACHYCARDIA, R/O ACUTE DISEASE PORTABLE SUPINE CHEST: Comparison is made with 04 Dec 2017. The exam is limited by respiratory motion. The heart size is normal. The lungs are grossly clear. PICC line is seen extending from the left arm to the superior vena cava. IMPRESSION: Limited exam. No gross evidence of acute abnormality.
--- NOTE | 2018-01-31 15:11 | W.ED.GENAD ---
Discharge Plan Disposition Patient Disposition: HOME Condition: Improving Discharge Details Chief Complaint: Palpitatns Clinical Impression: Sinus tachycardia, SVT (supraventricular tachycardia) Primary Care Provider: Diane Leblanc ED Provider: Tamra Redmond Home Meds and New Rx's Prescriptions: Continue glipizide 2.5 mg tablet extended release 24hr 7.5 mg PO DAILY RF: 0 aspirin [Ecotrin Low Strength] 81 MG tablet,delayed release (DR/EC) 1 tab PO DAILY RF: 0 acetaminophen 500 MG tablet 1 tab PO PRN RF: 0 calcium carbonate 500 MG tablet 1 tab.chew PO BID RF: 0 blood-glucose meter 1 EACH misc 1 ea Miscellaneous DAILY Qty: 1 RF: 0 ascorbic [id number] [Emergen-C] 1,000 MG powder effervescent in packet 1 packet PO PRN RF: 0 fluocinolone [Synalar] 120 GM ointment 1 applic Topical BID Qty: 1 RF: 2 simvastatin [Zocor] 10 MG tablet 1 tab PO HS Qty: 90 RF: 4 lancets 1 EACH misc 1 ea Miscellaneous BID Qty: 200 RF: 4 blood sugar diagnostic [Blood Glucose Test] 1 EACH strip 1 ea Miscellaneous BID Qty: 200 RF: 4 levothyroxine [Synthroid] 137 MCG tablet 1 tab PO DAILY Qty: 90 RF: 4 polyethylene glycol 3350 17 gram/dose powder 17 gm PO DAILY PRN (Reason: constipation) Qty: 255 RF: 2 sulfamethoxazole-trimethoprim [Bactrim DS] 800-160 mg tablet 1 tab PO BID RF: 0 metoprolol succinate 25 mg tablet extended release 24 hr 25 mg PO DAILY Qty: 30 RF: 6 pantoprazole 40 mg tablet,delayed release (DR/EC) 40 mg PO DAILY@0730 Qty: 30 RF: 6 naloxone [Narcan] 4 mg/actuation spray,non-aerosol 1 spray JORGE ONCE PRN (Reason: opioid overdose) Qty: 2 RF: 0 ondansetron [Zofran ODT] 4 mg Tablet,Disintegrating 4 mg PO PRN PRNRF: 0 metformin 500 mg Tablet 500 mg PO BID@0800,1700 Qty: 60 RF: 0 morphine 15 mg Tablet 15 mg PO BID PRN PRNQty: 6 RF: 0 morphine 15 mg Tablet Extended Release 15 mg PO BID Qty: 28 RF: 0 Discharge Instructions Instructions: Supraventricular Tachycardia (ED), Palpitations (ED) Additional Instructions: Take your regular medications as directed. Call your primary care doctor on Saturday morning to discuss whether you should continue your metoprolol dose as directed or take half the dose as recommended by the [facility] due to your recent low blood pressure. Return immediately to the emergency department any worsening or new concerning symptoms, Discharge Data Discharge Date/Time-TO BE ENTERED AT DEPARTURE: 01/31/18 18:10 Discharge Physician: Tamra Redmond Medical Decision Making 62-year-old female with a history of rectal cancer who recently finished chemo and radiation who presents with palpitations today. Patient was sent from [facility] for heart rate in the 140s-150s. She was given 1 L IV fluids from the [facility] and sent here for evaluation. She denies any chest pain or shortness of breath and has no complaint of palpitations at this time. Patient states she was told by her oncologist that she should expect any number of various symptoms in the next 2 weeks due to her recent chemo and radiation. EKG on arrival notes a rate 153 and sinus tachycardia. P wave noted in 1, 2, aVL, aVF, V1. Less than [address] depression noted in V5. QTc 421. QRS 68. Patient had lab work done routinely today at the lab which were stable compared to previous and note a white blood cell count of 2.08, hemoglobin of 8.3, platelet count of 63, creatinine 0.92, sodium 134, potassium 3.4. Unclear if her EKG notes sinus tachycardia or SVT. There appears to be a P wave in inferior and lateral leads which may be more consistent with sinus tachycardia, however patient's records do note a previous history of SVT. Patient took her metoprolol dose today. Attempted modified Valsalva 2 times at bedside without any change in heart rate. We will check a troponin and a chest x-ray. 1735 --patient's heart rate appears to have suddenly slowed down to 90s. P wave visible. 1800 --troponin negative. Chest x-ray negative. Repeat EKG notes a rate of 94, sinus, no acute ST elevation or depression, QTC 425, QRS 88. Patient denies any symptoms and is requesting to go home. Patient states she was told by the cancer center to d/w her pcp whether to decrease her dose of metoprolol to half due to recent low blood pressure. Systolic blood pressure 103. Patient was advised to continue her metoprolol as directed for now due to possible SVT, and to discuss with her PCP next week any recommendations on changes. It was discussed that her tachycardia, possibly SVT today may have been due to her recent chemo or radiation. She was instructed to return here immediately with any concerns. HPI General Mode of arrival: ambulatory. Date/Time Provider Initiated Documentation: 01/31/18 14:33. Limitations to Documentation: no limitations. Information obtained by: patient. HPI Narrative: Patient is a 62-year-old female with a history of rectal cancer who recently finished chemo and radiation 1 week ago who presents for tachycardia noted at cancer Center today. Patient states that she went to the cancer Center for routine checkup after finishing her radiation and chemo and was noted to have heart rate into the 140s and 150s and was given 1 L IV fluids and sent home. Patient states her heart rate was still fast so she came to the ER. She states she also had routine lab work done at the lab here today. Patient denies fever, vomiting, diarrhea, chest pain, shortness of breath, abdominal pain, dizziness. Past medical history: Rectal cancer, SVT, hypertension, diabetes, anemia, Graves' disease Surgical history [place] social history: Former tobacco smoker, denies alcohol or drugs Medications: Morphine 30 mg 3 times daily and 30 mg as needed, see list Allergies: Codeine, Copper, Latex, Lidocaine, oxycodone PCP: Diane Leblanc Related Data Home Medications Medication Instructions Recorded Confirmed acetaminophen 1 tab PO PRN 06/29/12 01/31/18 aspirin [Ecotrin Low Strength] 1 tab PO DAILY 06/29/12 01/02/18 calcium carbonate 1 tab.chew PO BID 06/29/12 01/31/18 blood-glucose meter #1 ea 10/04/14 01/02/18 ascorbic [id number] 1 packet PO PRN 07/26/15 01/02/18 [Emergen-C] fluocinolone [Synalar] 1 applic TOPICAL BID #1 script 03/28/16 01/31/18 simvastatin [Zocor] 1 tab PO HS #90 tab-cap 11/26/16 01/31/18 lancets #200 ea 02/13/17 01/02/18 blood sugar diagnostic [Blood #200 strip 03/28/17 01/02/18 Glucose Test] levothyroxine [Synthroid] 1 tab PO DAILY #90 tab-cap 05/14/17 01/31/18 polyethylene glycol 3350 17 17 gm PO DAILY PRN #255 gm 11/18/17 01/31/18 gram/dose oral powder naloxone [Narcan] 1 spray JORGE ONCE PRN #2 each 12/02/17 01/31/18 ondansetron [Zofran ODT] 4 mg PO PRN PRN 12/04/17 01/31/18 metformin 500 mg PO BID@0800,1700 #60 tab 12/25/17 01/31/18 morphine 15 mg PO BID #28 tab 12/25/17 01/31/18 morphine 15 mg PO BID PRN PRN #6 tab 12/25/17 01/31/18 glipizide ER 2.5 mg tablet, 7.5 mg PO DAILY tab 01/02/18 01/31/18 extended release 24 hr sulfamethoxazole 800 1 tab PO BID tab 01/07/18 01/31/18 mg-trimethoprim 160 mg tablet metoprolol succinate ER 25 mg 25 mg PO DAILY #30 tab 01/23/18 01/31/18 tablet,extended release 24 hr pantoprazole 40 mg tablet,delayed 40 mg PO DAILY@0730 #30 tab 01/23/18 01/31/18 release Previous Rx's Medication Instructions Recorded simvastatin [Zocor] 1 tab PO HS #90 tab-cap 11/26/16 lancets #200 ea 02/13/17 blood sugar diagnostic [Blood #200 strip 03/28/17 Glucose Test] levothyroxine [Synthroid] 1 tab PO DAILY #90 tab-cap 05/14/17 polyethylene glycol 3350 17 17 gm PO DAILY PRN #255 gm 11/18/17 gram/dose oral powder naloxone [Narcan] 1 spray JORGE ONCE PRN #2 each 12/02/17 metformin 500 mg PO BID@0800,1700 #60 tab 12/25/17 morphine 15 mg PO BID #28 tab 12/25/17 morphine 15 mg PO BID PRN PRN #6 tab 12/25/17 metoprolol succinate ER 25 mg 25 mg PO DAILY #30 tab 01/23/18 tablet,extended release 24 hr pantoprazole 40 mg tablet,delayed 40 mg PO DAILY@0730 #30 tab 01/23/18 release Allergies Allergy/AdvReac Type Severity Reaction Status Date / Time codeine Allergy Verified 01/31/18 14:53 copper Allergy Skin Rash Verified 01/31/18 14:53 latex Allergy Verified 01/31/18 14:53 lidocaine Allergy Itching Verified 01/31/18 14:53 oxycodone AdvReac Verified 01/31/18 14:53 General Stated Complaint: Palpitatns SEMAJ: 2 Review of Systems Review of Systems All systems reviewed & are unremarkable except as noted in HPI and below Constitutional Denies chills, Denies excessive sweating, Denies fatigue, Denies fever(s), Denies weakness and Denies weight loss Eyes Reports system reviewed and no additional complaints, except as docu and Denies blurry vision ENT Denies vertigo, Denies dizziness, Denies otalgia, Denies nasal congestion, Denies sore throat and Denies throat swelling Cardiovascular Denies chest pain, Denies syncope, Denies rapid heart rate and Denies dyspnea Respiratory Denies dyspnea Gastrointestinal Denies abdominal pain, Denies diarrhea and Denies vomiting Genitourinary Denies hematuria, Denies dysuria and Denies flank pain Musculoskeletal Denies back pain and Denies joint swelling Integumentary/Breasts Denies lesions and Denies rash Neurologic Denies behavioral changes, Denies confusion, Denies vertigo, Denies dizziness, Denies syncope and Denies weakness Psychiatric Denies behavioral changes, Denies confusion and Denies depression Endocrine Denies excessive sweating and Denies fatigue Hematologic/Lymphatic Denies easy bruising and Denies lymphadenopathy Allergic/Immunologic Denies throat swelling PFSH Family History Mother Diabetes Essential hypertension Depression Heart disease Hyperlipidemia Neoplasm Cerebrovascular accident Father Heart disease Myocardial infarction Sister Hyperlipidemia Asthma Grandfather Neoplasm Grandmother Cerebrovascular accident Son Diabetes Asthma Daughter Anxiety Heart disease Medical History Anal cancer (Chronic) Anemia (Acute) SVT (supraventricular tachycardia) (Acute) Hypothyroidism (Chronic 07/07/12) Hyperlipidemia (Chronic) Gastroesophageal reflux disease (Chronic) Essential hypertension (Chronic 01/02/13) Diabetes mellitus (Chronic 07/07/12) Diabetes Female infertility GERD (gastroesophageal reflux disease) Hyperlipidemia Hypertension Hypothyroidism Obesity (BMI 30-39.9) Varicose veins of both lower extremities Social History household members: none lives independently: Yes (requires assistance from friends since discharge) 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: [employer] - 12/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 medical leave pets and animals: Yes pets and animals: cat(s) frequency: 3-4 times per week duration: 45-60 minutes/day Smoking/Tobacco Use Status: Current every day tobacco type: cigarettes alcohol intake: never substance use type: does not use cari/congregational: [employer] special cari needs: No seatbelt use: always Surgical History Cervical Procedure (~1989) Endometrial Biopsy (~2002) Ligation of fallopian tube Exam Const General: cooperative, healthy appearing and no acute distress Orientation: alert, awake and oriented x3 HENMT Head: normal to inspection Ears: hearing grossly normal bilaterally and external ears normal General nose exam: external nose normal Face and sinus: normal facial exam Mouth: oral mucosae normal Eyes General: appearance normal, both eyes and all related structures Eyelids: eyelids normal EOM: EOM intact bilaterally Neck Neck: normal visual inspection Lymphatic: no lymphadenopathy noted Chest Chest: normal inspection of the chest Resp Effort & Inspection: normal respiratory effort and able to speak in complete sentences Auscultation: clear to auscultation bilaterally Cardio Rate: tachycardic Rhythm: regular rhythm GI Inspection: normal to inspection Palpation: soft, not firm, no guarding, no hepatosplenomegaly, no masses and nontender Auscultation: normal bowel sounds Skin General skin exam: no rashes or lesions noted Neuro General: alert and awake Cognition: normal cognition Speech: speech normal Gait: normal gait Motor: muscle tone normal throughout Sensory Exam: no sensory deficits noted Extrem General: normal to inspection, full ROM, normal capillary refill and no edema Psych Appearance: grossly normal Mental Status: mental status grossly normal Speech and Movement: speech and movement normal Affect: normal affect Thought Process: normal Course Vital Signs Temperature 98.2 F 01/31/18 14:45 Pulse 151 H 01/31/18 14:45 Respiratory Rate 17 01/31/18 14:45 Blood Pressure 98/61 L 01/31/18 14:45 Pulse Oximetry 95 01/31/18 14:45 Temperature 98.2 F 01/31/18 14:45 Temperature Source Temporal Artery Scan 01/31/18 14:45 Pulse 151 H 01/31/18 14:45 Respiratory Rate 17 01/31/18 14:45 Respiratory Effort Non-Labored 01/31/18 14:50 Blood Pressure 98/61 L 01/31/18 14:45 Pulse Oximetry 95 01/31/18 14:45 Oxygen Delivery Method Room Air 01/31/18 14:45 Oxygen Flow Rate 0 01/31/18 14:45 Pain Level 0 01/31/18 14:45
[2018-01-31] MEDS: Normal Saline 1,000 ML 1000 ML IV (15:20)
[2018-01-31 15:41] LABS: Troponin I < 0.02 ng/mL (0.00-0.06)
--- NOTE | 2018-01-31 15:57 | DI.VRAD_ITS ---
EXAM: XR Chest, 1 View EXAM DATE/TIME: 01/31/2018 3:40 PM CLINICAL HISTORY: 62 years old, female; Signs and symptoms; Other: Tachycardia, ; patient HX: Rectal cancer TECHNIQUE: XR of the chest, 1 view. COMPARISON: SC XR PORTABLE CHEST AP POST LINE 12/04/2017 7:16 PM FINDINGS: Lungs: Unremarkable. No consolidation. Pleural space: Unremarkable. No pleural effusion. No pneumothorax. Heart/Mediastinum: Motion somewhat limits evaluation. Bones/joints: Chronic osseous changes. IMPRESSION: No acute cardiopulmonary findings. Dictated and Authenticated by: Dennis Lutz MD. Ordering:JACKIE WALKER MD
[2018-01-31] MEDS: Normal Saline 1,000 ML 250 ML IV (16:42)
== END 2018-01-31 18:10 | disposition home or self-care (01) ==
PROVIDERS: Emergency Provider Physician Assistant
DX: I47.1 Supraventricular tachycardia (principal); C20 Malignant neoplasm of rectum; Z79.899 Other long term (current) drug therapy; E11.9 Type 2 diabetes mellitus without complications; Z79.84 Long term (current) use of oral hypoglycemic drugs; I10 Essential (primary) hypertension
CPT/HCPCS: 36592; 93005; 96360; 96361; 99285; 71045; 84484; 93010; 99284

== ENCOUNTER 2018-02-07 13:30 | Outpatient (RCR) | payer OTHER, SELFPAY ==
[2018-01-20] VITALS (10 sets, daily range): BP systolic 91–114; BP diastolic 44–60; PULSE 70–86; RESP 17–18; TEMP 36.1–36.7; O2SAT 96–99
[2018-01-20] MEDS: Normal Saline Flush 10 ML SYR IVP (09:05)
[2018-01-24 12:42] LABS: ALT 16 U/L (12-78); AST 15 U/L (15-37); Albumin 2.1 g/dL (3.4-5.0); Alkaline Phosphatase 89 U/L (46-116); Anion Gap 6.5 mmol/L (3-11); BUN 7 mg/dL (7-18); Bilirubin, Total 0.4 mg/dL (0.2-1.0); CO2 29.5 mmol/L (21.0-32.0); CREATININE 0.77 mg/dL (0.55-1.02); Calcium 8.2 mg/dL (8.5-10.1); Chloride 97 mmol/L (98-107); Glucose 185 mg/dL (70-100); Sodium 133 mmol/L (136-145); Total Protein 6.4 g/dL (6.4-8.2)
[2018-01-24 12:44] LABS: Absolute Eosinophil Count 0.08 k/cumm (0.0-0.7); HCT 26.7 % (36.0-46.0); HGB 8.6 g/dL (12.0-15.5); Mean Corp. HGB Concentration 32.2 g/dL (32.0-36.0); Mean Corpuscular Hemoglobin 30.1 pg (27.0-33.0); Mean Corpuscular Volume 93.4 fL (80-95); Mean Platelet Volume 8.8 fL (8.0-11.0); RBC 2.86 m/cumm (4.00-5.20); RBC Distribution Width 22.7 % (11.7-14.6); White Blood Cell Count 2.66 k/cumm (4.4-10.8)
[2018-01-24 12:47] LABS: Potassium 2.9 mmol/L (3.5-5.1)
[2018-01-24 12:53] LABS: Platelet Count 88 x1000/uL (130-400)
[2018-01-24 12:54] LABS: Absolute Lymphocyte Count 0.13 k/cumm (1.2-3.4); Absolute Monocyte Count 0.16 k/cumm (0.11-0.7); Absolute Neutrophil Count 2.21 k/cumm (1.2-6.7); Diff Comment Manual Differential
[2018-01-24 12:55] LABS: Anisocytosis 3+; Macrocytosis 1+; Microcytosis 1+; Poikilocytes 1+; Polychromasia Present
[2018-01-31] MEDS: Normal Saline Flush 10 ML SYR IVP ×2 (10:45→14:57)
[2018-01-31 10:58] VITALS: BP 114/52; PULSE 81; RESP 17; TEMP 36.5; O2SAT 98
[2018-01-31 11:10] LABS: Abs Immature Grans 0.02 k/cumm (0.0-0.09); Absolute Eosinophil Count 0.02 k/cumm (0.0-0.7); HCT 26.4 % (36.0-46.0); HGB 8.3 g/dL (12.0-15.5); Mean Corp. HGB Concentration 31.4 g/dL (32.0-36.0); Mean Corpuscular Hemoglobin 30.5 pg (27.0-33.0); Mean Corpuscular Volume 97.1 fL (80-95); RBC 2.72 m/cumm (4.00-5.20); RBC Distribution Width 23.3 % (11.7-14.6); White Blood Cell Count 2.08 k/cumm (4.4-10.8)
[2018-01-31 11:16] LABS: ALT 12 U/L (12-78); AST 11 U/L (15-37); Albumin 2.1 g/dL (3.4-5.0); Alkaline Phosphatase 97 U/L (46-116); Anion Gap 9.8 mmol/L (3-11); BUN 9 mg/dL (7-18); Bilirubin, Total 0.6 mg/dL (0.2-1.0); CO2 30.2 mmol/L (21.0-32.0); CREATININE 0.92 mg/dL (0.55-1.02); Calcium 8.4 mg/dL (8.5-10.1); Chloride 94 mmol/L (98-107); Glucose 208 mg/dL (70-100); Potassium 3.4 mmol/L (3.5-5.1); Sodium 134 mmol/L (136-145); Total Protein 6.6 g/dL (6.4-8.2)
[2018-01-31 11:30] LABS: Absolute Lymphocyte Count 0.12 k/cumm (1.2-3.4); Absolute Monocyte Count 0.29 k/cumm (0.11-0.7); Absolute Neutrophil Count 1.64 k/cumm (1.2-6.7); Platelet Count 63 x1000/uL (130-400)
[2018-01-31 11:31] LABS: Anisocytosis 2+; Diff Comment Manual Differential; Hypochromasia 2+; Schistocytes 1+
[2018-01-31] MEDS: Heparin 500 UNITS/5 ML SYRINGE IV (14:57)
[2018-02-07] VITALS (8 sets, daily range): BP systolic 114–145; BP diastolic 52–69; PULSE 81–88; RESP 14–18; TEMP 36–37; O2SAT 96–100
[2018-02-07 12:17] LABS: Abs Immature Grans 0.04 k/cumm (0.0-0.09); HCT 23.9 % (36.0-46.0); HGB 7.6 g/dL (12.0-15.5); Mean Corp. HGB Concentration 31.8 g/dL (32.0-36.0); Mean Corpuscular Hemoglobin 32.1 pg (27.0-33.0); Mean Corpuscular Volume 100.8 fL (80-95); Mean Platelet Volume 8.7 fL (8.0-11.0); RBC 2.37 m/cumm (4.00-5.20); RBC Distribution Width 23.9 % (11.7-14.6); White Blood Cell Count 2.35 k/cumm (4.4-10.8)
[2018-02-07 12:32] LABS: ALT 12 U/L (12-78); AST 13 U/L (15-37); Albumin 2.2 g/dL (3.4-5.0); Alkaline Phosphatase 92 U/L (46-116); Anion Gap 9.1 mmol/L (3-11); BUN 6 mg/dL (7-18); Bilirubin, Total 0.4 mg/dL (0.2-1.0); CO2 27.9 mmol/L (21.0-32.0); Calcium 8.4 mg/dL (8.5-10.1); Chloride 97 mmol/L (98-107); Glucose 164 mg/dL (70-100); Potassium 3.3 mmol/L (3.5-5.1); Sodium 134 mmol/L (136-145); Total Protein 6.5 g/dL (6.4-8.2)
[2018-02-07 12:34] LABS: Absolute Eosinophil Count 0.05 k/cumm (0.0-0.7); Absolute Lymphocyte Count 0.31 k/cumm (1.2-3.4); Absolute Monocyte Count 0.24 k/cumm (0.11-0.7); Absolute Neutrophil Count 1.72 k/cumm (1.2-6.7); Diff Comment Manual Differential; Platelet Count 80 x1000/uL (130-400)
[2018-02-07 12:35] LABS: Anisocytosis 3+; Microcytosis 1+; Polychromasia Present
[2018-02-07] MEDS: Normal Saline Flush 10 ML SYR IVP (12:35)
--- NOTE | 2018-02-07 17:33 | NUR.NOTE ---
Nursing Note: DUE TO CODE BLACK, INITIAL DOCUMENTATION DONE ON PAPER WITH 2 WITNESS VERIFICATION PER PROTOCOL. ONCE TAR AVAILABLE ALL INFORMATION TRANSFERED TO TAR WITH COSIGNING NURSE VERIFYING IN COMPUTER WELL.
== END 2018-02-07 23:59 | disposition home or self-care (01) ==
LOC: INF 13:30
PROVIDERS: Visit Provider Internal Medicine Hematology & Oncology
DX: C21.0 Malignant neoplasm of anus, unspecified (principal); D64.9 Anemia, unspecified; Z45.2 Encounter for adjustment and management of vascular access device
CPT/HCPCS: 36430; 36569; 36592; 80053; 86850; 86900; 86901; 86920; 85025; P9016

== ENCOUNTER 2018-03-07 01:35 | Outpatient (RCR) | payer OTHER, SELFPAY | END 2018-03-10 23:59 | disposition home or self-care (01) | LOC: INF 01:35 | PROVIDERS: Visit Provider Internal Medicine Hematology & Oncology | DX: Z45.2 Encounter for adjustment and management of vascular access device (principal) ==

== ENCOUNTER 2018-03-07 02:02 | Outpatient (CLI) | payer OTHER, SELFPAY ==
[2018-03-07 14:37] LABS: Abs Immature Grans 0.11 k/cumm (0.0-0.09); Absolute Basophil Count 0.02 k/cumm (0.0-0.2); Absolute Eosinophil Count 0.07 k/cumm (0.0-0.7); Absolute Monocyte Count 0.64 k/cumm (0.11-0.7); Absolute Neutrophil Count 4.83 k/cumm (1.2-6.7); Basophils % 0.3; Eosinophils % 1.1; HGB 9.5 g/dL (12.0-15.5); Immature Grans % 1.7; Mean Corp. HGB Concentration 31.7 g/dL (32.0-36.0); Mean Corpuscular Hemoglobin 32.9 pg (27.0-33.0); Mean Corpuscular Volume 103.8 fL (80-95); Mean Platelet Volume 8.1 fL (8.0-11.0); Neutrophils % 75.9; Platelet Count 213 x1000/uL (130-400); RBC 2.89 m/cumm (4.00-5.20); RBC Distribution Width 20.8 % (11.7-14.6); White Blood Cell Count 6.37 k/cumm (4.4-10.8)
[2018-03-07 16:14] LABS: ALT 21 U/L (12-78); AST 18 U/L (15-37); Albumin 2.9 g/dL (3.4-5.0); Alkaline Phosphatase 137 U/L (46-116); Anion Gap 11.3 mmol/L (3-11); BUN 15 mg/dL (7-18); Bilirubin, Total 0.2 mg/dL (0.2-1.0); CO2 25.7 mmol/L (21.0-32.0); CREATININE 0.87 mg/dL (0.55-1.02); Calcium 8.7 mg/dL (8.5-10.1); Chloride 100 mmol/L (98-107); Glucose 130 mg/dL (70-100); Potassium 4.1 mmol/L (3.5-5.1); Sodium 137 mmol/L (136-145); TSH (W/Ref FT4) 0.64 uIU/mL (0.358-3.74); Total Protein 6.6 g/dL (6.4-8.2)
== END 2018-03-07 02:22 ==
PROVIDERS: Visit Provider Internal Medicine Hematology & Oncology
DX: C21.0 Malignant neoplasm of anus, unspecified (principal); E03.9 Hypothyroidism, unspecified; E87.6 Hypokalemia; G89.3 Neoplasm related pain (acute) (chronic); E83.42 Hypomagnesemia; I10 Essential (primary) hypertension; E11.9 Type 2 diabetes mellitus without complications
CPT/HCPCS: 36415; 80053; 83036; 84443; 85025

== ENCOUNTER 2018-04-03 00:58 | Outpatient (CLI) | payer OTHER, SELFPAY ==
[2018-04-03 12:07] LABS: HCT 31.5 % (36.0-46.0); Mean Corp. HGB Concentration 31.7 g/dL (32.0-36.0); Mean Corpuscular Hemoglobin 34.2 pg (27.0-33.0); Mean Corpuscular Volume 107.9 fL (80-95); Mean Platelet Volume 8.4 fL (8.0-11.0); Platelet Count 180 x1000/uL (130-400); RBC 2.92 m/cumm (4.00-5.20); RBC Distribution Width 17.6 % (11.7-14.6)
[2018-04-03 12:20] LABS: ALT 36 U/L (12-78); AST 27 U/L (15-37); Albumin 3.1 g/dL (3.4-5.0); Alkaline Phosphatase 147 U/L (46-116); Anion Gap 10.5 mmol/L (3-11); BUN 16 mg/dL (7-18); Bilirubin, Total 0.3 mg/dL (0.2-1.0); CO2 25.5 mmol/L (21.0-32.0); CREATININE 0.92 mg/dL (0.55-1.02); Calcium 9.3 mg/dL (8.5-10.1); Chloride 102 mmol/L (98-107); Glucose 199 mg/dL (70-100); Magnesium 1.3 mg/dL (1.8-2.4); Potassium 4.4 mmol/L (3.5-5.1); Sodium 138 mmol/L (136-145); Total Protein 7.2 g/dL (6.4-8.2)
[2018-04-03 15:58] LABS: Abs Immature Grans 0.05 k/cumm (0.0-0.09); Absolute Basophil Count 0.02 k/cumm (0.0-0.2); Absolute Eosinophil Count 0.19 k/cumm (0.0-0.7); Absolute Lymphocyte Count 0.65 k/cumm (1.2-3.4); Absolute Monocyte Count 0.53 k/cumm (0.11-0.7); Absolute Neutrophil Count 4.02 k/cumm (1.2-6.7); Basophils % 0.4; Eosinophils % 3.5; Immature Grans % 0.9; Lymphocytes % 11.9; Monocytes % 9.7; Neutrophils % 73.6
== END 2018-04-03 01:18 ==
PROVIDERS: Visit Provider Internal Medicine Hematology & Oncology
DX: C21.0 Malignant neoplasm of anus, unspecified (principal); E11.29 Type 2 diabetes mellitus with other diabetic kidney complication; E87.6 Hypokalemia; I10 Essential (primary) hypertension; E03.9 Hypothyroidism, unspecified
CPT/HCPCS: 80053; 85027; 83735; 85007

== ENCOUNTER 2018-04-04 00:59 | Outpatient (RCR) | payer OTHER, SELFPAY | END 2018-04-10 23:59 | disposition home or self-care (01) | LOC: INF 00:59 | PROVIDERS: Visit Provider Internal Medicine Hematology & Oncology | DX: R69 Illness, unspecified (principal) ==

== ENCOUNTER 2018-07-07 07:00 | Outpatient (CLI) | payer OTHER, SELFPAY ==
[2018-07-07 08:27] LABS: Hemoglobin A1C 5.9 % (4.5-6.2)
[2018-07-07 11:09] LABS: ALT 34 U/L (12-78); AST 18 U/L (15-37); Albumin 3.5 g/dL (3.4-5.0); Alkaline Phosphatase 112 U/L (46-116); Anion Gap 9.4 mmol/L (3-11); BUN 27 mg/dL (7-18); Bilirubin, Total 0.3 mg/dL (0.2-1.0); CO2 27.6 mmol/L (21.0-32.0); CREATININE 0.92 mg/dL (0.55-1.02); Calcium 9.6 mg/dL (8.5-10.1); Chloride 102 mmol/L (98-107); Cholesterol 171 mg/dL (50-200); Glucose 123 mg/dL (70-100); HDL Cholesterol 46 mg/dL (40-60); LDL CHOLESTEROL 93 mg/dL (<100); Potassium 4.4 mmol/L (3.5-5.1); Sodium 139 mmol/L (136-145); Total Protein 7.2 g/dL (6.4-8.2); Triglyceride 165 mg/dL (30-150)
== END 2018-07-07 07:20 ==
DX: I10 Essential (primary) hypertension (principal); F06.31 Mood disorder due to known physiological condition with depressive features; C21.0 Malignant neoplasm of anus, unspecified; Z13.220 Encounter for screening for lipoid disorders
CPT/HCPCS: 36415; 80053; 80061; 83721; 83036

== ENCOUNTER 2018-07-16 01:23 | Outpatient (CLI) | payer OTHER, SELFPAY ==
[2018-07-16 09:49] LABS: Abs Immature Grans 0.02 k/cumm (0.0-0.09); Absolute Basophil Count 0.01 k/cumm (0.0-0.2); Absolute Eosinophil Count 0.12 k/cumm (0.0-0.7); Absolute Lymphocyte Count 0.58 k/cumm (1.2-3.4); Absolute Monocyte Count 0.28 k/cumm (0.11-0.7); Absolute Neutrophil Count 1.64 k/cumm (1.2-6.7); Basophils % 0.4; Eosinophils % 4.5; HCT 38.4 % (36.0-46.0); HGB 11.8 g/dL (12.0-15.5); Immature Grans % 0.8; Lymphocytes % 21.9; Mean Corp. HGB Concentration 30.7 g/dL (32.0-36.0); Mean Corpuscular Hemoglobin 30.5 pg (27.0-33.0); Mean Corpuscular Volume 99.2 fL (80-95); Mean Platelet Volume 8.4 fL (8.0-11.0); Monocytes % 10.6; Neutrophils % 61.8; Platelet Count 208 x1000/uL (130-400); RBC 3.87 m/cumm (4.00-5.20); RBC Distribution Width 16.2 % (11.7-14.6); White Blood Cell Count 2.65 k/cumm (4.4-10.8)
[2018-07-16 10:15] LABS: ALT 31 U/L (12-78); AST 16 U/L (15-37); Albumin 3.4 g/dL (3.4-5.0); Alkaline Phosphatase 104 U/L (46-116); Anion Gap 7.3 mmol/L (3-11); BUN 18 mg/dL (7-18); Bilirubin, Total 0.4 mg/dL (0.2-1.0); CO2 29.7 mmol/L (21.0-32.0); CREATININE 0.92 mg/dL (0.55-1.02); Calcium 9.8 mg/dL (8.5-10.1); Chloride 101 mmol/L (98-107); Glucose 138 mg/dL (70-100); Potassium 4.4 mmol/L (3.5-5.1); Sodium 138 mmol/L (136-145); Total Protein 7.5 g/dL (6.4-8.2)
[2018-07-16 10:59] LABS: TSH (W/Ref FT4) 0.82 uIU/mL (0.358-3.74)
== END 2018-07-16 01:43 ==
PROVIDERS: Visit Provider Internal Medicine Hematology & Oncology
DX: E03.9 Hypothyroidism, unspecified (principal); C21.0 Malignant neoplasm of anus, unspecified
CPT/HCPCS: 36415; 80053; 84443; 85025

== ENCOUNTER 2018-07-17 02:00 | Outpatient (RCR) | payer OTHER, SELFPAY | END 2018-08-08 23:59 | disposition home or self-care (01) | LOC: INF 02:00 | PROVIDERS: Visit Provider Internal Medicine Hematology & Oncology | DX: R69 Illness, unspecified (principal) ==

== ENCOUNTER 2018-11-03 12:57 | Outpatient (CLI) | payer MEDICARE, SELFPAY, OTHER | END 2018-11-03 13:17 | PROVIDERS: Visit Provider Nurse Practitioner | DX: C21.0 Malignant neoplasm of anus, unspecified (principal); C31.9 Malignant neoplasm of accessory sinus, unspecified | CPT/HCPCS: 81003 ==

== ENCOUNTER 2018-11-03 16:40 | Outpatient (REF) | payer MEDICARE, SELFPAY, OTHER ==
[2018-11-03 17:06] LABS: Bilirubin Negative (Negative); Blood Large (Negative); Clarity Cloudy (Clear); Glucose Negative (Negative); Ketones Negative (Negative); Leukocyte Esterase Trace (Negative); Nitrite Negative (Negative); Specific Gravity <= 1.005 (1.005-1.025); Urobilinogen 0.2 EU/dL (Up TO 0.2); pH 5.5 (5-8)
[2018-11-03 17:09] LABS: C & S Indicated? Yes; RBC >50 (0-2)
== END 2018-11-03 17:00 ==
LOC: LBN 16:40
PROVIDERS: Visit Provider Nurse Practitioner
DX: R31.9 Hematuria, unspecified (principal); C21.0 Malignant neoplasm of anus, unspecified
CPT/HCPCS: 81003; 81015; 87086

== ENCOUNTER 2018-11-11 09:29 | Emergency (ER) | payer MEDICARE, OTHER, SELFPAY ==
[2018-11-11 09:32] VITALS: BP 127/59; PULSE 89; RESP 18; TEMP 36.5; O2SAT 100
--- NOTE | 2018-11-11 09:51 | ED.GENADUL_ITS ---
Discharge Plan Disposition Patient Disposition: HOME Condition: Good Discharge Details Chief Complaint: Urinary Clinical Impression: Hematuria Primary Care Provider: Diane Leblanc ED Provider: Mark Sanders Home Meds and New Rx's Prescriptions: New hyoscyamine sulfate [Anaspaz] 0.125 mg tablet,disintegrating 0.125 mg PO BID-QID PRN (Reason: bladder pain) Qty: 30 RF: 0 Continued sertraline 50 mg tablet 50 mg PO DAILY Qty: 90 RF: 3 acetaminophen 500 MG tablet 1 tab PO PRN RF: 0 calcium carbonate 500 MG tablet 1 tab.chew PO BID RF: 0 (DME) blood-glucose meter 1 EACH misc 1 ea Miscellaneous DAILY Qty: 1 RF: 0 Emergen-C 1,000 MG powder effervescent in packet 1 packet PO PRN RF: 0 fluocinolone [Synalar] 120 GM ointment 1 applic Topical BID Qty: 1 RF: 2 (DME) lancets 1 EACH misc 1 ea Miscellaneous BID Qty: 200 RF: 4 polyethylene glycol 3350 17 gram/dose powder 17 gm PO DAILY PRN (Reason: constipation) Qty: 255 RF: 2 (DME) Blood Glucose Test strip 1 ea Miscellaneous BID Qty: 200 RF: 4 glipizide 2.5 mg tablet extended release 24hr 5 mg PO BID Qty: 180 RF: 3 metoprolol succinate 25 mg tablet extended release 24 hr 25 mg PO DAILY Qty: 90 RF: 3 simvastatin [Zocor] 10 mg tablet 10 mg PO HS Qty: 90 RF: 4 pantoprazole 40 mg tablet,delayed release (DR/EC) 40 mg PO DAILY@0730 Qty: 90 RF: 3 levothyroxine [Synthroid] 137 mcg tablet 137 mcg PO DAILY Qty: 90 RF: 4 potassium chloride 20 mEq tablet extended release 20 meq PO DAILY Qty: 90 RF: 3 ondansetron [Zofran ODT] 4 mg Tablet,Disintegrating 4 mg PO PRN PRNRF: 0 metformin 500 mg Tablet 500 mg PO BID@0800,1700 Qty: 60 RF: 0 Discharge Instructions Instructions: Hematuria (ED) Additional Instructions: At this time I am concerned that your urinary bleeding is secondary to irritation from your radiation. Please make sure to continue to drink plenty of fluids. At this time you have deferred the Dias catheter, if you find that you stop urinating, or the pain becomes too much please return immediately for reassessment. Please take the antispasmodic medication as directed. We will s mikedule an appointment with you for urology, he will be contacted by them for this appointment. If you notice any worsening of your symptoms, or any new symptoms such as vomiting, diarrhea, fever, chills, shortness of breath, chest pain, numbness, weakness, or fainting , please return immediately to the emergency department for reevaluation. Please follow up with your primary care provider as soon as possible for reassessment and reevaluation. As always, it was a pleasure participating in your medical care today. Referrals: Diane Leblanc NP [Primary Care Provider] - Discharge Data Discharge Date/Time-TO BE ENTERED AT DEPARTURE: 11/11/18 11:24 Medical Decision Making This is a very pleasant 63-year-old female with a past medical history of rectal cancer, who received chemotherapy and radiation, 3 weeks ago she had fistula surgery from the rectum and the vagina. After that she has had intermittent occasional hematuria. Is worsened over the last few days, however she has been able to continue to urinate. She does pass small clots, but denies any new or acute vaginal discharge, dysuria, foul-smelling or urine, or look of feces in her urine. Physical exam demonstrates a benign nontender abdomen, unremarkable vaginal exam except for the current drain that is in place. Vital signs are notably reassuring. Patient wanted to hold off on a Dias catheter, she was able to urinate fine here without significant difficulty. Urinalysis does show evidence of blood and RBCs, no evidence of significant infection being nitrite negative, leukoesterase negative, we did discuss Dias catheter for ease of urination, versus just taking with an antispasmodic with urology follow-up. At this time the patient would like to hold off on catheterization, stating that she can always come back for it later if need be. We will prescribe the antispasmodic for her pain, and schedule outpatient urology follow-up. 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 With no evidence of infection at this time I see no indication for antibiotics. I have extensively reviewed the treatment plan and discharge instructions with the patient. I have addressed all patient concerns at this time. The patient was made aware of what symptoms to monitor for that would warrant a return to the emergency department. Discussed the plan with the patient, they demonstrate verbal understanding and agreement with our assessment and plan at this time. HPI General Date/Time Provider Initiated Documentation: 11/11/18 09:30 . 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 Since then the patient has had intermittent hematuria, passing mild clots. 1 week ago she was diagnosed by her oncologist with having urinary tract infection. She had a short course of Bactrim. She had no burning and dysuria after this, however the clot still remained. Over the last 2 to 3 days she has noticed continued clots, but has still been able to urinate. Because of her continued symptoms she comes to the ER for further assessment. She denies any dysuria, burning, nausea, vomiting, diarrhea, new or acute abdominal pain, numbness tingling or weakness. She denies any fever or chills. She has no other complaints at this time. No anticoagulant use. Related Data Home Medications Medication Instructions Recorded Confirmed acetaminophen 1 tab PO PRN 06/29/12 11/11/18 calcium carbonate 1 tab.chew PO BID 06/29/12 11/11/18 blood-glucose meter #1 ea 10/04/14 09/08/18 Emergen-C 1 packet PO PRN 07/26/15 11/11/18 fluocinolone [Synalar] 1 applic TOPICAL BID #1 script 03/28/16 11/11/18 lancets #200 ea 02/13/17 09/08/18 polyethylene glycol 3350 17 17 gm PO DAILY PRN #255 gm 11/18/17 11/11/18 gram/dose oral powder ondansetron [Zofran ODT] 4 mg PO PRN PRN 12/04/17 11/11/18 metformin 500 mg PO BID@0800,1700 #60 tab 12/25/17 11/11/18 blood sugar diagnostic #200 strip 03/18/18 09/08/18 glipizide 2.5 mg tablet, extended 5 mg PO BID #180 tab 03/18/18 11/11/18 release 24 hr metoprolol succinate 25 mg 25 mg PO DAILY #90 tab 03/18/18 11/11/18 tablet,extended release 24 hr pantoprazole 40 mg tablet,delayed 40 mg PO DAILY@0730 #90 tab 03/18/18 11/11/18 release simvastatin 10 mg tablet 10 mg PO HS #90 tab-cap 03/18/18 11/11/18 levothyroxine 137 mcg tablet 137 mcg PO DAILY #90 tab-cap 07/31/18 11/11/18 potassium chloride 20 mEq 20 meq PO DAILY #90 tab 07/31/18 11/11/18 tablet,extended release sertraline 50 mg tablet 50 mg PO DAILY #90 tab 09/08/18 11/11/18 hyoscyamine sulfate [Anaspaz] 0.125 mg PO BID-QID PRN #30 tab 11/11/18 Previous Rx's Medication Instructions Recorded lancets #200 ea 02/13/17 polyethylene glycol 3350 17 17 gm PO DAILY PRN #255 gm 11/18/17 gram/dose oral powder metformin 500 mg PO BID@0800,1700 #60 tab 12/25/17 blood sugar diagnostic #200 strip 03/18/18 glipizide 2.5 mg tablet, extended 5 mg PO BID #180 tab 03/18/18 release 24 hr metoprolol succinate 25 mg 25 mg PO DAILY #90 tab 03/18/18 tablet,extended release 24 hr pantoprazole 40 mg tablet,delayed 40 mg PO DAILY@0730 #90 tab 03/18/18 release simvastatin 10 mg tablet 10 mg PO HS #90 tab-cap 03/18/18 levothyroxine 137 mcg tablet 137 mcg PO DAILY #90 tab-cap 07/31/18 potassium chloride 20 mEq 20 meq PO DAILY #90 tab 07/31/18 tablet,extended release sertraline 50 mg tablet 50 mg PO DAILY #90 tab 09/08/18 hyoscyamine sulfate [Anaspaz] 0.125 mg PO BID-QID PRN #30 tab 11/11/18 Allergies Allergy/AdvReac Type Severity Reaction Status Date / Time codeine Allergy Verified 11/11/18 09:38 copper Allergy Skin Rash Verified 11/11/18 09:38 latex Allergy Verified 11/11/18 09:38 lidocaine Allergy Itching Verified 11/11/18 09:38 oxycodone AdvReac Verified 11/11/18 09:38 General Stated Complaint: Urinary SEMAJ: 3 Review of Systems Review of Systems All systems reviewed & are unremarkable except as noted in HPI and below PFSH Social History Smoking/Tobacco Use Status: Former Tobacco Use Quit status: has quit before Counseling given: counseling >3 minutes Alcohol Intake: never Drug use: Never Substance use type: does not use Household members: none 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 3.ENT: Atraumatic external nose and ears. Moist MM. Neck: Symmetric, trachea midline, No thyromegaly. 4.CVS: +S1/S2, No murmurs or gallops. Peripheral pulses 2+ and equal in all extremities. Brisk capillary refill in all extremities. 5.RESP: Unlabored respiratory effort. Clear to auscultation bilaterally. No wheezes rales or rhonchi 6.GI: Soft, Nontender/Nondistended, No hepatosplenomegaly. No guarding or rebound. Nonspecific abdominal tenderness in the suprapubic region which she describes as fullness. Genital exam was performed with female nurse at bedside she demonstrates a normal-appearing external vaginal exam, drain is in place. 7.MSK: Normocephalic/Atraumatic, Extremities w/o deformity or ttp No cyanosis or clubbing, Normal movement of all extremities 8.Skin: Warm, Dry. No rashes or lesions. 9.Neuro: asphalt spreader II-XII grossly intact. Sensation grossly intact, no focal neurologic deficits. 10.Psych: (AAO) x3. Appropriate mood and affect Course Vital Signs Temperature 36.5 C 11/11/18 09:32 Pulse 89 11/11/18 09:32 Respiratory Rate 18 11/11/18 09:32 Blood Pressure 127/59 L 11/11/18 09:32 Pulse Oximetry 100 11/11/18 09:32 Temperature 36.5 C 11/11/18 09:32 Temperature Source Skin 11/11/18 09:32 Pulse 89 11/11/18 09:32 Respiratory Rate 18 11/11/18 09:32 Blood Pressure 127/59 L 11/11/18 09:32 Blood Pressure Position Supine 11/11/18 09:32 Pulse Oximetry 100 11/11/18 09:32 Oxygen Delivery Method Room Air 11/11/18 09:32 Oxygen Flow Rate 0 11/11/18 09:32 Pain Level 0 11/11/18 09:32
[2018-11-11 10:58] LABS: Bilirubin Small (Negative); Blood Large (Negative); Clarity Cloudy (Clear); Glucose Negative (Negative); Ketones Negative (Negative); Leukocyte Esterase Negative (Negative); Nitrite Negative (Negative); Specific Gravity 1.015 (1.005-1.025); Urobilinogen 0.2 EU/dL (Up TO 0.2)
[2018-11-11 11:01] LABS: C & S Indicated? Yes; RBC >50 (0-2)
--- NOTE | 2018-11-11 11:19 | NUR.NOTE ---
Nursing Note: Referral faxed to Urology @ [facility] for follow up in 1 - 1 1/2 weeks. Nancy Jhaveri.
[2018-11-11 11:24] VITALS: BP 110/66; PULSE 70; RESP 16; TEMP 36.6; O2SAT 98
== END 2018-11-11 11:24 | disposition home or self-care (01) ==
PROVIDERS: Emergency Provider Student in an Organized Health Care Education/Training Program
DX: R31.9 Hematuria, unspecified (principal); C21.0 Malignant neoplasm of anus, unspecified; I10 Essential (primary) hypertension; E11.9 Type 2 diabetes mellitus without complications
CPT/HCPCS: 99283; 81003; 81015; 87086

== ENCOUNTER 2018-11-17 14:30 | Inpatient (IN) | payer MEDICARE, OTHER, SELFPAY ==
[2018-11-17 14:30] VITALS: BP 122/58; PULSE 93; RESP 18; TEMP 36.4; O2SAT 97
--- NOTE | 2018-11-17 14:51 | ED.GENADUL_ITS ---
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 Since then the patient has had intermittent hematuria, passing mild clots. 2 week ago she was diagnosed by her oncologist with having urinary tract infection. She had a short course of Bactrim. She was then subsequently seen here 1 week ago, she had mild hematuria at that time, hemoglobin was stable, no evidence of significant infection. Urology follow-up was scheduled, she was discharged with close follow-up with her PCP. Unfortunately she was not contacted by urology, and well following up with her PCP today she was noted to become diaphoretic, near syncopal, which seems to reflect worsening of symptoms over the last week of fatigue weakness and continued urinary bleeding. Her blood pressure was initially low at her PCPs office, but it came back to normal prior to her coming to the ER. Physical exam demonstrates no acute new abdominal or pelvic tenderness. Conjunctiva is mildly pale. Urine shows notable blood, she has had greater than a three-point drop in her hemoglobin since her visit here 1 week ago, I did contact Dr. Ruiz discussed the case with him, he agrees on the need for cystoscopy. Patient has been typed and screened. Troponin, EKG and laboratory work-up is otherwise benign. Discussed case with Dr. Trotter, he agrees with the assessment and plan. Patient will be admitted for further management observation, fluid hydration, potential PRBCs, and urology evaluation. I have extensively reviewed the treatment plan with the patient. I have addressed all patient concerns at this time. I have also discussed the plan with the admitting physician and they agree with the current assessment and plan and have agreed to assume responsibility for the patient. All parties demonstrate verbal understanding and agreement with our assessment and plan at this time. EKG 14: 59 Rate 78, intervals normal, sinus rhythm, occasional premature atrial contr actions. No significant ST elevations or depressions, no evidence of STEMI. No evidence of significant right heart strain. HPI General Date/Time Provider Initiated Documentation: 11/17/18 14:48 . 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 Since then the patient has had intermittent hematuria, passing mild clots. 2 week ago she was diagnosed by her oncologist with having urinary tract infection. She had a short course of Bactrim. She was then subsequently seen here 1 week ago, she had mild hematuria at that time, hemoglobin was stable, no evidence of significant infection. Urology follow-up was scheduled, she was discharged with close follow-up with her PCP. Unfortunately she was not contacted by urology, and well following up with her PCP today she was noted to become diaphoretic, near syncopal, which seems to reflect worsening of symptoms over the last week of fatigue weakness and continued urinary bleeding. Her blood pressure was initially low at her PCPs office, but it came back to normal prior to her coming to the ER. Currently she denies any new abdominal pain, chest pain, headache, numbness or tingling. She is not on any blood thinners. She has no other complaints at this time. Related Data Home Medications Medication Instructions Recorded Confirmed acetaminophen 1 tab PO PRN 06/29/12 11/17/18 calcium carbonate 1 tab.chew PO BID 06/29/12 11/17/18 blood-glucose meter #1 ea 10/04/14 11/17/18 Emergen-C 1 packet PO PRN 07/26/15 11/17/18 fluocinolone [Synalar] 1 applic TOPICAL BID #1 script 03/28/16 11/17/18 lancets #200 ea 02/13/17 11/17/18 polyethylene glycol 3350 17 17 gm PO DAILY PRN #255 gm 11/18/17 11/17/18 gram/dose oral powder ondansetron [Zofran ODT] 4 mg PO PRN PRN 12/04/17 11/17/18 metformin 500 mg PO BID@0800,1700 #60 tab 12/25/17 11/17/18 blood sugar diagnostic #200 strip 03/18/18 11/17/18 glipizide 2.5 mg tablet, extended 5 mg PO BID #180 tab 03/18/18 11/17/18 release 24 hr metoprolol succinate 25 mg 25 mg PO DAILY #90 tab 03/18/18 11/17/18 tablet,extended release 24 hr pantoprazole 40 mg tablet,delayed 40 mg PO DAILY@0730 #90 tab 03/18/18 11/17/18 release simvastatin 10 mg tablet 10 mg PO HS #90 tab-cap 03/18/18 11/17/18 levothyroxine 137 mcg tablet 137 mcg PO DAILY #90 tab-cap 07/31/18 11/17/18 potassium chloride 20 mEq 20 meq PO DAILY #90 tab 07/31/18 11/17/18 tablet,extended release sertraline 50 mg tablet 50 mg PO DAILY #90 tab 09/08/18 11/17/18 hyoscyamine sulfate [Anaspaz] 0.125 mg PO BID-QID PRN #30 tab 11/11/18 11/17/18 Previous Rx's Medication Instructions Recorded lancets #200 ea 02/13/17 polyethylene glycol 3350 17 17 gm PO DAILY PRN #255 gm 11/18/17 gram/dose oral powder metformin 500 mg PO BID@0800,1700 #60 tab 12/25/17 blood sugar diagnostic #200 strip 03/18/18 glipizide 2.5 mg tablet, extended 5 mg PO BID #180 tab 03/18/18 release 24 hr metoprolol succinate 25 mg 25 mg PO DAILY #90 tab 03/18/18 tablet,extended release 24 hr pantoprazole 40 mg tablet,delayed 40 mg PO DAILY@0730 #90 tab 03/18/18 release simvastatin 10 mg tablet 10 mg PO HS #90 tab-cap 03/18/18 levothyroxine 137 mcg tablet 137 mcg PO DAILY #90 tab-cap 07/31/18 potassium chloride 20 mEq 20 meq PO DAILY #90 tab 07/31/18 tablet,extended release sertraline 50 mg tablet 50 mg PO DAILY #90 tab 09/08/18 hyoscyamine sulfate [Anaspaz] 0.125 mg PO BID-QID PRN #30 tab 11/11/18 Allergies Allergy/AdvReac Type Severity Reaction Status Date / Time codeine Allergy Verified 11/17/18 13:20 copper Allergy Skin Rash Verified 11/17/18 13:20 latex Allergy Verified 11/17/18 13:20 lidocaine Allergy Itching Verified 11/17/18 13:20 oxycodone AdvReac Verified 11/17/18 13:20 General Stated Complaint: Dizzy/Sync SEMAJ: 3 Review of Systems Review of Systems All systems reviewed & are unremarkable except as noted in HPI and below PFSH Medical History Acute kidney failure (Acute) Advanced directives, counseling/discussion (Chronic) Anal cancer (Chronic) Anemia (Acute) Cancer related pain (Chronic) Debility (Chronic) 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) Diabetes Diabetes mellitus (Chronic 07/07/12) DVT prophylaxis (Acute) Essential hypertension (Chronic 01/02/13) Female infertility Gastroesophageal reflux disease (Chronic) GERD (gastroesophageal reflux disease) Goals of care, counseling/discussion (Chronic) Hematuria (Acute) Hyperlipidemia Hyperlipidemia (Chronic) Hypertension Hypokalemia (Acute) Hypomagnesemia (Acute) Hypotension determined by examination (Acute) Hypothyroidism H/O Graves Hypothyroidism (Chronic 07/07/12) H/O GRAVES ophthalmopathy Increased BMI (Chronic) Mass of anus (Acute 11/08/17) 11/04/17 -Hyperplastic polyps of descending colon and rectum Invasive keratinizing squamous cell carcinoma -Tumor invading at least rectal mucosa and submucosa [facility] [place] referral initiated by Dr. Wolff Obesity (BMI 30-39.9) Peripheral edema (Resolved) Sepsis (Resolved) Shock circulatory (Resolved) Smoker (Resolved) Quit October 2017 SVT (supraventricular tachycardia) (Acute) UTI (urinary tract infection) (Acute) Varicose veins of both lower extremities Varicose veins of lower extremity (Acute) Surgical History Cervical Procedure (~1989) CRYOTHERAPY Endometrial Biopsy (~2002) Ligation of fallopian tube Family History Mother , of cirrhosis at age 68, likely from lifelong obesity Diabetes Essential hypertension Depression Heart disease Hyperlipidemia Neoplasm LIVER Stroke Father , dad aged 40 from AMI Heart disease Myocardial infarction Sister Hyperlipidemia Asthma Grandfather Neoplasm LUNG Grandmother Stroke Son Diabetes Asthma Daughter Anxiety Heart disease BORN WITH ENLARGED HEART Social History Smoking/Tobacco Use Status: Former Tobacco Use Quit status: has quit before Counseling given: counseling >3 minutes Alcohol Intake: never Drug use: Never Substance use type: does not use Household members: none 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 Slightly pale conjunctiva 3.ENT: Atraumatic external nose and ears. Moist MM. Neck: Symmetric, trachea midline, No thyromegaly. 4.CVS: +S1/S2, No murmurs or gallops. Peripheral pulses 2+ and equal in all e xtremities. Brisk capillary refill in all extremities. 5.RESP: Unlabored respiratory effort. Clear to auscultation bilaterally. No wheezes rales or rhonchi 6.GI: Soft, Nontender/Nondistended, No hepatosplenomegaly. No guarding or rebound. No significant acute pelvic tenderness. 7.MSK: Normocephalic/Atraumatic, Extremities w/o deformity or ttp No cyanosis or clubbing, Normal movement of all extremities 8.Skin: Warm, Dry. No rashes or lesions. 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 Sensation grossly intact, no focal neurologic deficits. 10.Psych: (AAO) x3. Appropriate mood and affect Course Vital Signs Temperature 36.4 C L 11/17/18 14:30 Pulse 93 H 11/17/18 14:30 Respiratory Rate 18 11/17/18 14:30 Blood Pressure 122/58 L 11/17/18 14:30 Pulse Oximetry 97 11/17/18 14:30 Temperature 36.4 C L 11/17/18 14:30 Temperature Source Temporal Artery Scan 11/17/18 14:30 Pulse 93 H 11/17/18 14:30 Respiratory Rate 18 11/17/18 14:30 Blood Pressure 122/58 L 11/17/18 14:30 Blood Pressure Position Supine 11/17/18 14:30 Pulse Oximetry 97 11/17/18 14:30 Oxygen Delivery Method Room Air 11/17/18 14:30 Oxygen Flow Rate 0 11/17/18 14:30 Pain Level 0 11/17/18 14:30 Lab/Test Results Lab/Test Results: 11/17/18 14:49 Urine - Clean Catch Urine Culture - Pending
[2018-11-17 15:28] LABS: Bilirubin Color Interference (Negative); Blood Color Interference (Negative); Clarity Cloudy (Clear); Glucose Color Interference mg/dL (Negative); Ketones Color Interference mg/dL (Negative); Leukocyte Esterase Color Interference (Negative); Nitrite Color Interference (Negative); Specific Gravity 1.012 (1.005-1.025); Urobilinogen Color Interference EU/dL (Up TO 0.2)
[2018-11-17 15:29] LABS: RBC >50 (0-2)
[2018-11-17 15:30] LABS: Abs Immature Grans 0.05 k/cumm (0.0-0.09); Absolute Basophil Count 0.03 k/cumm (0.0-0.2); Absolute Eosinophil Count 0.08 k/cumm (0.0-0.7); Absolute Lymphocyte Count 0.63 k/cumm (1.2-3.4); Absolute Monocyte Count 0.45 k/cumm (0.11-0.7); Basophils % 0.5; Eosinophils % 1.4; HCT 26.3 % (36.0-46.0); HGB 8.4 g/dL (12.0-15.5); Immature Grans % 0.9; Lymphocytes % 11.4; Mean Corp. HGB Concentration 31.9 g/dL (32.0-36.0); Mean Corpuscular Hemoglobin 31.2 pg (27.0-33.0); Mean Corpuscular Volume 97.8 fL (80-95); Mean Platelet Volume 8.3 fL (8.0-11.0); Monocytes % 8.1; Neutrophils % 77.7; Platelet Count 285 x1000/uL (130-400); RBC 2.69 m/cumm (4.00-5.20); White Blood Cell Count 5.54 k/cumm (4.4-10.8)
[2018-11-17 15:30] LABS: C & S Indicated? C&S Done As Ordered
[2018-11-17] MEDS: Normal Saline 1,000 ML 1000 ML IV (15:35)
[2018-11-17] MEDS: Normal Saline Flush 10 ML SYR IVP ×2 (15:36→19:53)
[2018-11-17 15:41] LABS: ALT 22 U/L (14-59); AST 15 U/L (15-37); Albumin 3.4 g/dL (3.4-5.0); Alkaline Phosphatase 82 U/L (46-116); Anion Gap 8.8 mmol/L (3-11); BUN 15 mg/dL (7-18); Bilirubin, Total 0.2 mg/dL (0.2-1.0); CO2 27.2 mmol/L (21.0-32.0); CREATININE 0.76 mg/dL (0.55-1.02); Calcium 9.2 mg/dL (8.5-10.1); Chloride 98 mmol/L (98-107); Glucose 96 mg/dL (70-100); PTT Activated 23.7 sec (21.0-31.4); Potassium 4.2 mmol/L (3.5-5.1); Prothrombin Time 9.6 sec (9.3-11.0); Sodium 134 mmol/L (136-145); Total Protein 7.1 g/dL (6.4-8.2)
[2018-11-17 16:12] LABS: Troponin I < 0.05 ng/mL (0.00-0.06)
--- NOTE | 2018-11-17 17:14 | W.PM.HP.N ---
Date of service: 11/17/18 Time of Service: 17:14 Assessment and Plan (1) Hematuria: Current visit: No Status: Acute She reports hematuria with clots since 10/31. She presented with near syncope and hypotension today. Her Hgb is low at 8.4, down from 11.9 on 10/30/18. She has been typed and screened. Repeat H&H at 2000. Urology has been consulted, plans for cystoscopy tomorrow. NPO after midnight for procedure tomorrow. Monitor blood pressure closely. (2) Anal cancer: Current visit: No Status: Chronic She completed chemotherapy and radiation in 01/2018. Has since developed rectovaginal fistula, s/p drain (x2) placement [place] [facility] [place]. (3) Anemia: Current visit: No Status: Acute Her hemoglobin is down to 8.4 from 11.9 as above. She has been typed and screened. Repeat H&H at 2000, transfusion of PRBCs as indicated. Currently hemodynamically stable and asymptomatic. Qualifiers: Anemia type: unspecified type Qualified Code(s): D64.9 - Anemia, unspecified (4) Diabetes mellitus: Current visit: No Status: Chronic Her most recent Hgb A1c was 5.9 in 06/2018. Hold oral agents. Monitor blood glucose at , aspart per sliding scale. Qualifiers: Diabetes mellitus type: type 2 Diabetes mellitus exterminator termite insulin use: without exterminator termite use Diabetes mellitus complication status: with kidney complications Diabetes mellitus complication detail: with other kidney complication Qualified Code(s): E11.29 - Type 2 diabetes mellitus with other diabetic kidney complication (5) Essential hypertension: Current visit: No Status: Chronic Hypotensive on presentation in the setting of hematuria with anemia. Hold metoprolol. Continue IV fluids, monitor blood pressure closely. (6) Gastroesophageal reflux disease: Current visit: No Status: Chronic Contine PPI therapy. (7) Hyperlipidemia: Current visit: No Status: Chronic Continue statin therapy. (8) Hypothyroidism: Current visit: No Status: Chronic History of Grave's. Continue levothyroxine per home dose. (9) DVT prophylaxis: Current visit: No Status: Acute Hold chemical DVT prophylaxis in the setting of hematuria, anemia and urology procedure tomorrow. SCDs for mechanical DVT ppx. (10) Discharge planning issues: Current visit: Yes Status: Acute She is a FULL CODE. She has been seen by palliative in the past, consider palliative consult. This case was discussed with Dr. Trotter who is in agreement. History of Present Illness Chief Complaint: Near syncope, hematuria, hypotension, anemia Narrative: Sherry Werner is a very pleasant 63 year old female with a past medical history significant for rectal cancer, s/p treatment with chemotherapy and radiation in January 2018, with subsequent development of rectovaginal fistula s/p drain placement at [facility] [place] last [place], now presenting with weakness, fatigue and hematuria with blood clots that began on 10/31/18. She also has a history of depression on zoloft, Grave's disease, diabetes, hyperlipidemia and HTN. She presented to her PCP today for evaluation of hematuria and had a near syncopal episode with hypotension in the office. EMS was called and she was transported to the ED. In the ED, her labs were notable for a hgb of 8.4, down from 11.9 on 10/30. She was hypotensive in the ED and received IV fluids. Her case was discussed with Dr. Ruiz who agrees to preform cystoscopy tomorrow. She was typed and screened. She is admitted to the med/surg floor for further evaluation and management with possible blood transfusion. At the time of her exam, she reports that she feels better, she does not feel dizzy, she has been out of bed to the bathroom. She continues to have hematuria with clots. She reports that she has been feeling weak and fatigued for several days. She was seen in the ED last week and offered a weaver catheter, but she declined due to concern for infection. She was nauseated this morning, no vomiting. She has soft, formed stools, she had a bowel movement today. She is a smoker, smokes 5 cigarettes today. She has been eating and drinking and tolerating her diet. She denies any pain. She denies shortness of breath, coughing, wheezing, chest pain/pressure, palpitations, edema. She offers no other concerns. Review of Systems Review of Systems All systems reviewed & are unremarkable except as noted in HPI and below PFSH Medical History Acute kidney failure (Acute) Advanced directives, counseling/discussion (Chronic) Anal cancer (Chronic) Anemia (Acute) Cancer related pain (Chronic) Debility (Chronic) 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) Diabetes Diabetes mellitus (Chronic 07/07/12) DVT prophylaxis (Acute) Essential hypertension (Chronic 01/02/13) Female infertility Gastroesophageal reflux disease (Chronic) GERD (gastroesophageal reflux disease) Goals of care, counseling/discussion (Chronic) Hematuria (Acute) Hyperlipidemia Hyperlipidemia (Chronic) Hypertension Hypokalemia (Acute) Hypomagnesemia (Acute) Hypotension determined by examination (Acute) Hypothyroidism H/O Graves Hypothyroidism (Chronic 07/07/12) H/O GRAVES ophthalmopathy Increased BMI (Chronic) Mass of anus (Acute 11/08/17) 11/04/17 -Hyperplastic polyps of descending colon and rectum Invasive keratinizing squamous cell carcinoma -Tumor invading at least rectal mucosa and submucosa [facility] [place] referral initiated by Dr. Wolff Obesity (BMI 30-39.9) Peripheral edema (Resolved) Sepsis (Resolved) Shock circulatory (Resolved) Smoker (Resolved) Quit October 2017 SVT (supraventricular tachycardia) (Acute) UTI (urinary tract infection) (Acute) Varicose veins of both lower extremities Varicose veins of lower extremity (Acute) Surgical History Cervical Procedure (~1989) CRYOTHERAPY Endometrial Biopsy (~2002) Ligation of fallopian tube Family History Mother , of cirrhosis at age 68, likely from lifelong obesity Diabetes Essential hypertension Depression Heart disease Hyperlipidemia Neoplasm LIVER Stroke Father , dad aged 40 from AMI Heart disease Myocardial infarction Sister Hyperlipidemia Asthma Grandfather Neoplasm LUNG Grandmother Stroke Son Diabetes Asthma Daughter Anxiety Heart disease BORN WITH ENLARGED HEART Social History Smoking/Tobacco Use Status: Former Tobacco Use Quit status: has quit before Counseling given: counseling >3 minutes Alcohol Intake: never Drug use: Never Substance use type: does not use Household members: none 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 Pets and animals: Yes Pets and animals: cat(s) What type of physical activity do you participate in: independent ambulation Duration: 45-60 minutes/day Frequency: 3-4 times per week Miranda/Roman Catholic: Rastafarian Special miranda needs: No Seatbelt use: always Do you feel safe in your relationship?: Yes Meds Home Medications Medication Instructions Recorded Confirmed Type acetaminophen 1 tab PO PRN 06/29/12 11/17/18 History calcium carbonate 1 tab.chew PO BID 06/29/12 11/17/18 History blood-glucose meter #1 ea 10/04/14 11/17/18 History Emergen-C 1 packet PO PRN 07/26/15 11/17/18 History fluocinolone [Synalar] 1 applic TOPICAL BID #1 script 03/28/16 11/17/18 History lancets #200 ea 02/13/17 11/17/18 Rx polyethylene glycol 3350 17 17 gm PO DAILY PRN #255 gm 11/18/17 11/17/18 Rx gram/dose oral powder ondansetron [Zofran ODT] 4 mg PO PRN PRN 12/04/17 11/17/18 History metformin 500 mg PO BID@0800,1700 #60 tab 12/25/17 11/17/18 Rx blood sugar diagnostic #200 strip 03/18/18 11/17/18 Rx glipizide 2.5 mg tablet, extended 5 mg PO BID #180 tab 03/18/18 11/17/18 Rx release 24 hr metoprolol succinate 25 mg 25 mg PO DAILY #90 tab 03/18/18 11/17/18 Rx tablet,extended release 24 hr pantoprazole 40 mg tablet,delayed 40 mg PO DAILY@0730 #90 tab 03/18/18 11/17/18 Rx release simvastatin 10 mg tablet 10 mg PO HS #90 tab-cap 03/18/18 11/17/18 Rx levothyroxine 137 mcg tablet 137 mcg PO DAILY #90 tab-cap 07/31/18 11/17/18 Rx potassium chloride 20 mEq 20 meq PO DAILY #90 tab 07/31/18 11/17/18 Rx tablet,extended release sertraline 50 mg tablet 50 mg PO DAILY #90 tab 09/08/18 11/17/18 Rx hyoscyamine sulfate [Anaspaz] 0.125 mg PO BID-QID PRN #30 tab 11/11/18 11/17/18 Rx Allergies Allergy/AdvReac Type Severity Reaction Status Date / Time codeine Allergy Verified 11/17/18 13:20 copper Allergy Skin Rash Verified 11/17/18 13:20 latex Allergy Verified 11/17/18 13:20 lidocaine Allergy Itching Verified 11/17/18 13:20 oxycodone AdvReac Verified 11/17/18 13:20 Exam Narrative Exam Narrative: General: Elderly female, sitting up on stretcher, alert and oriented, pleasant and cooperative, in NAD. HEENT: Opthalmopathy, pupils equal and round, EOMI, mucous membranes moist. Neck: supple, no JVD. Cardiovascular: Heart has regular rate and rhythm, non-tachycardic, no murmur appreciated. Respiratory: Respirations are even and unlabored, lung sounds clear to auscultation bilaterally. GI: Normoactive bowel sounds throughout, abdomen soft, nontender on palpation, nondistended. Extremities: No clubbing, cyanosis or edema. Results Labs : 11/17/18 15:15 11/17/18 15:15 Laboratory Results - last 24 hr 11/17/18 11/17/18 11/17/18 14:53 15:15 15:15 WBC 5.54 RBC 2.69 L Hgb 8.4 L Hct 26.3 L MCV 97.8 H MCH 31.2 MCHC 31.9 L RDW 17.0 H Plt Count 285 MPV 8.3 Immature Gran % 0.9 Neutrophils % 77.7 Lymphocytes % 11.4 Monocytes % 8.1 Eosinophils % 1.4 Basophils % 0.5 Absolute Neutrophils 4.30 Absolute Lymphocytes 0.63 L Absolute Monocytes 0.45 Absolute Eosinophils 0.08 Absolute Basophils 0.03 PT INR APTT Sodium 134 L Potassium 4.2 Chloride 98 Carbon Dioxide 27.2 Anion Gap 8.8 BUN 15 Creatinine 0.76 Estimated GFR/1.73 m2 >= 60.00 Glucose 96 Calcium 9.2 Total Bilirubin 0.2 AST 15 ALT 22 Alkaline Phosphatase 82 Troponin I Total Protein 7.1 Albumin 3.4 Urine Color Red Urine Clarity Cloudy Urine pH Not Applicable Ur Specific [place] 1.012 Urine Protein Color interference Urine Ketones Color interference Urine Blood Color interference Urine Nitrite Color interference Urine Bilirubin Color interference Urine Urobilinogen Color interference Ur Leukocyte Esterase Color interference Urine RBC >50 H Urine WBC Not Applicable Ur Epithelial Cells Not Applicable Urine Crystals Not Applicable Urine Bacteria Not Applicable Urine Mucus Not Applicable Ur Culture Indicated? C&s done as ordered Urine Glucose Color interference Patient ABO/Rh Antibody Screen 11/17/18 11/17/18 11/17/18 15:15 15:15 15:45 WBC RBC Hgb Hct MCV MCH MCHC RDW Plt Count MPV Immature Gran % Neutrophils % Lymphocytes % Monocytes % Eosinophils % Basophils % Absolute Neutrophils Absolute Lymphocytes Absolute Monocytes Absolute Eosinophils Absolute Basophils PT 9.6 INR 1.0 APTT 23.7 Sodium Potassium Chloride Carbon Dioxide Anion Gap BUN Creatinine Estimated GFR/1.73 m2 Glucose Calcium Total Bilirubin AST ALT Alkaline Phosphatase Troponin I < 0.05 Total Protein Albumin Urine Color Urine Clarity Urine pH Ur Specific [place] Urine Protein Urine Ketones Urine Blood Urine Nitrite Urine Bilirubin Urine Urobilinogen Ur Leukocyte Esterase Urine RBC Urine WBC Ur Epithelial Cells Urine Crystals Urine Bacteria Urine Mucus Ur Culture Indicated? Urine Glucose Patient ABO/Rh O Positive Antibody Screen Negative Last Vital Signs Temp 36.4 C L 11/17/18 14:30 Pulse 93 H 11/17/18 14:30 Resp 18 11/17/18 14:30 BP 122/58 L 11/17/18 14:30 Pulse Ox 97 11/17/18 14:30
[2018-11-17 19:29] VITALS: BP 105/57; PULSE 77; RESP 18; TEMP 36.4; O2SAT 100
[2018-11-17] MEDS: Acetaminophen 325 MG TAB PO (19:51)
[2018-11-17] MEDS: Normal Saline 1,000 ML 100 ML IV (19:53)
[2018-11-17 20:48] LABS: HCT 24.6 % (36.0-46.0); HGB 7.6 g/dL (12.0-15.5)
[2018-11-17] MEDS: Simvastatin 10 MG TAB PO (21:22)
[2018-11-17 23:55] VITALS: BP 87/51; PULSE 87; RESP 18; TEMP 36.6; O2SAT 99
[2018-11-18] VITALS (16 sets, daily range): BP systolic 85–145; BP diastolic 42–113; PULSE 60–95; RESP 11–26; TEMP 36–36.9; O2SAT 96–100
[2018-11-18] MEDS: Normal Saline 250 ML 500 ML IV (00:40)
[2018-11-18] MEDS: Normal Saline 1,000 ML 125 ML IV ×4 (02:23→23:50)
[2018-11-18] MEDS: Acetaminophen 325 MG TAB PO ×2 (02:23→23:50)
--- NOTE | 2018-11-18 07:29 | UCONE_ITS ---
Date of service: 11/18/18 Time of Service: 07:30 Assessment and Plan (1) Hematuria: Current visit: No Status: Acute She has a number of different possible etiologies for her hematuria. She certainly could have developed a rectovesical fistula. She may have radiation cystitis. She may have a primary bladder tumor. With her hemoglobin down to 7.1 and the patient having some symptoms, we have recommended that she receive a unit of blood. We will plan on taking her to the operating room later today to do a cystoscopy, clot evacuation, bladder biopsy and fulguration of her bladder mucosa. I expect that we will need to run bladder irrigation on this patient. I would not be surprised if she needs ad ditional transfusions based on her symptoms. History of Present Illness Chief Complaint: Gross hematuria Narrative: This is a 63-year-old woman who has a history of anal cancer. She was treated with a combination of radiation therapy and chemotherapy. She developed a documented rectovaginal fistula and underwent placement of drains about a month ago. Recently, she has had gross hematuria. She has had urine cultures that only showed gram-positive's with no significant uropathogens. She does have a history of urosepsis that delayed some of her radiation and chemotherapy treatments. In reviewing her heme-onc notes, there was concern for a fistula to the bladder expressed in a note in January 2018. She was further evaluated with imaging studies but no rectovesical fistula was identified. Over the past week, her hemoglobin has dropped to 7. She has had some episodes of orthostasis and weakness. She has been passing clots but has not gone into retention. She has no known bleeding disorders. There has been concern regarding the appearance of her liver on imaging studies, but her coagulation studies are normal. She has been a longtime smoker. She is never had any type of bladder surgery or urologic examinations. 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) Diabetes Diabetes mellitus (Chronic 07/07/12) DVT prophylaxis (Acute) Essential hypertension (Chronic 01/02/13) Female infertility Gastroesophageal reflux disease (Chronic) GERD (gastroesophageal reflux disease) Goals of care, counseling/discussion (Chronic) Hematuria (Acute) Hyperlipidemia Hyperlipidemia (Chronic) Hypertension Hypokalemia (Acute) Hypomagnesemia (Acute) Hypotension determined by examination (Acute) Hypothyroidism H/O Graves Hypothyroidism (Chronic 07/07/12) H/O GRAVES ophthalmopathy Increased BMI (Chronic) Mass of anus (Acute 11/08/17) 11/04/17 -Hyperplastic polyps of descending colon and rectum Invasive keratinizing squamous cell carcinoma -Tumor invading at least rectal mucosa and submucosa [facility] [place] referral initiated by Dr. Wolff Obesity (BMI 30-39.9) Peripheral edema (Resolved) Sepsis (Resolved) Shock circulatory (Resolved) Smoker (Resolved) Quit October 2017 SVT (supraventricular tachycardia) (Acute) UTI (urinary tract infection) (Acute) Varicose veins of both lower extremities Varicose veins of lower extremity (Acute) Surgical History Cervical Procedure (~1989) CRYOTHERAPY Endometrial Biopsy (~2002) Ligation of fallopian tube Family History Mother , of cirrhosis at age 68, likely from lifelong obesity Diabetes Essential hypertension Depression Heart disease Hyperlipidemia Neoplasm LIVER Stroke Father , dad aged 40 from AMI Heart disease Myocardial infarction Sister Hyperlipidemia Asthma Grandfather Neoplasm LUNG Grandmother Stroke Son Diabetes Asthma Daughter Anxiety Heart disease BORN WITH ENLARGED HEART Social History Smoking/Tobacco Use Status: Former Tobacco Use Quit status: has quit before Counseling given: counseling >3 minutes Alcohol Intake: never Drug use: Never Substance use type: does not use Household members: none 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 Her vital signs are documented elsewhere Her abdomen is soft with no distended bladder. Her urine is grossly bloody with clots She is awake and alert. I reviewed multiple medical records from [facility]. She is known to have an atrophic right kidney. She has no known renal mass on the left. Her most recent rectal biopsy showed no residual cancer just inflammation. Results Last Vital Signs Temp 36.2 C L 11/18/18 03:41 Pulse 68 11/18/18 03:41 Resp 18 11/18/18 03:41 BP 95/43 L 11/18/18 03:41 Pulse Ox 100 11/18/18 03:41 Labs : 11/18/18 07:20 11/18/18 07:20 Laboratory Results - last 24 hr 11/17/18 11/17/18 11/17/18 14:53 15:15 15:15 WBC 5.54 RBC 2.69 L Hgb 8.4 L Hct 26.3 L MCV 97.8 H MCH 31.2 MCHC 31.9 L RDW 17.0 H Plt Count 285 MPV 8.3 Immature Gran % 0.9 Neutrophils % 77.7 Lymphocytes % 11.4 Monocytes % 8.1 Eosinophils % 1.4 Basophils % 0.5 Absolute Neutrophils 4.30 Absolute Lymphocytes 0.63 L Absolute Monocytes 0.45 Absolute Eosinophils 0.08 Absolute Basophils 0.03 PT INR APTT Sodium 134 L Potassium 4.2 Chloride 98 Carbon Dioxide 27.2 Anion Gap 8.8 BUN 15 Creatinine 0.76 Estimated GFR/1.73 m2 >= 60.00 Glucose 96 Calcium 9.2 Total Bilirubin 0.2 AST 15 ALT 22 Alkaline Phosphatase 82 Troponin I Total Protein 7.1 Albumin 3.4 Urine Color Red Urine Clarity Cloudy Urine pH Not Applicable Ur Specific [place] 1.012 Urine Protein Color interference Urine Ketones Color interference Urine Blood Color interference Urine Nitrite Color interference Urine Bilirubin Color interference Urine Urobilinogen Color interference Ur Leukocyte Esterase Color interference Urine RBC >50 H Urine WBC Not Applicable Ur Epithelial Cells Not Applicable Urine Crystals Not Applicable Urine Bacteria Not Applicable Urine Mucus Not Applicable Ur Culture Indicated? C&s done as ordered Urine Glucose Color interference Patient ABO/Rh Antibody Screen 11/17/18 11/17/1819 15:15 15:15 15:45 WBC RBC Hgb Hct MCV MCH MCHC RDW Plt Count MPV Immature Gran % Neutrophils % Lymphocytes % Monocytes % Eosinophils % Basophils % Absolute Neutrophils Absolute Lymphocytes Absolute Monocytes Absolute Eosinophils Absolute Basophils PT 9.6 INR 1.0 APTT 23.7 Sodium Potassium Chloride Carbon Dioxide Anion Gap BUN Creatinine Estimated GFR/1.73 m2 Glucose Calcium Total Bilirubin AST ALT Alkaline Phosphatase Troponin I < 0.05 Total Protein Albumin Urine Color Urine Clarity Urine pH Ur Specific [place] Urine Protein Urine Ketones Urine Blood Urine Nitrite Urine Bilirubin Urine Urobilinogen Ur Leukocyte Esterase Urine RBC Urine WBC Ur Epithelial Cells Urine Crystals Urine Bacteria Urine Mucus Ur Culture Indicated? Urine Glucose Patient ABO/Rh O Positive Antibody Screen Negative 11/17/18 20:15 WBC RBC Hgb 7.6 L Hct 24.6 L MCV MCH MCHC RDW Plt Count MPV Immature Gran % Neutrophils % Lymphocytes % Monocytes % Eosinophils % Basophils % Absolute Neutrophils Absolute Lymphocytes Absolute Monocytes Absolute Eosinophils Absolute Basophils PT INR APTT Sodium Potassium Chloride Carbon Dioxide Anion Gap BUN Creatinine Estimated GFR/1.73 m2 Glucose Calcium Total Bilirubin AST ALT Alkaline Phosphatase Troponin I Total Protein Albumin Urine Color Urine Clarity Urine pH Ur Specific [place] Urine Protein Urine Ketones Urine Blood Urine Nitrite Urine Bilirubin Urine Urobilinogen Ur Leukocyte Esterase Urine RBC Urine WBC Ur Epithelial Cells Urine Crystals Urine Bacteria Urine Mucus Ur Culture Indicated? Urine Glucose Patient ABO/Rh Antibody Screen
[2018-11-18 07:34] LABS: HCT 23.1 % (36.0-46.0); HGB 7.1 g/dL (12.0-15.5); Mean Corp. HGB Concentration 30.7 g/dL (32.0-36.0); Mean Corpuscular Hemoglobin 30.7 pg (27.0-33.0); Mean Platelet Volume 7.8 fL (8.0-11.0); Platelet Count 250 x1000/uL (130-400); RBC 2.31 m/cumm (4.00-5.20); RBC Distribution Width 17.4 % (11.7-14.6)
[2018-11-18 07:50] LABS: Anion Gap 9.5 mmol/L (3-11); BUN 11 mg/dL (7-18); CO2 24.5 mmol/L (21.0-32.0); CREATININE 0.72 mg/dL (0.55-1.02); Calcium 8.4 mg/dL (8.5-10.1); Chloride 107 mmol/L (98-107); Glucose 110 mg/dL (70-100); Magnesium 1.4 mg/dL (1.8-2.4); Sodium 141 mmol/L (136-145)
[2018-11-18] MEDS: Pantoprazole 40 MG TABCR PO (08:34)
[2018-11-18] MEDS: Sertraline 50 MG TAB PO (08:37)
[2018-11-18] MEDS: Ondansetron 4 MG/2 ML VIAL IVP (08:37)
--- NOTE | 2018-11-18 09:58 | PDOC.CMIN ---
- If Service Date Differs Date of service: 11/18/18 Time of Service: 09:58 Care Management Initial Assess REASON FOR HOSPITALIZATION:: hematuria PAST MEDICAL HISTORY/PAST SURGICAL HISTORY:: Medical History: Acute kidney failure (Acute). Advanced directives, counseling/discussion (Chronic). Anal cancer (Chronic). Anemia (Acute). Cancer related pain (Chronic). Debility (Chronic). 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 Diabetes. Diabetes mellitus (Chronic 07/07/12). DVT prophylaxis (Acute). Essential hypertension (Chronic 01/02/13). Female infertility. Gastroesophageal reflux disease (Chronic). GERD (gastroesophageal reflux disease). Goals of care, counseling/discussion (Chronic). Hematuria (Acute). Hyperlipidemia. Hyperlipidemia (Chronic). Hypertension. Hypokalemia (Acute). Hypomagnesemia (Acute). Hypotension determined by examination (Acute). Hypothyroidism. H/O Graves. Hypothyroidism (Chronic 07/07/12). H/O GRAVES. ophthalmopathy. Increased BMI (Chronic). Mass of anus (Acute 11/08/17). 11/04/17. -Hyperplastic polyps of descending colon and rectum. Invasive keratinizing squamous cell carcinoma. -Tumor invading at least rectal mucosa and submucosa. [facility] [place] by Dr. Wolff. Obesity (BMI 30-39.9). Peripheral edema (Resolved). Sepsis (Resolved). Shock circulatory (Resolved). Smoker (Resolved). Quit October 2017. SVT (supraventricular tachycardia) (Acute). UTI (urinary tract infection) (Acute). Varicose veins of both lower extremities. Varicose veins of lower extremity (Acute). Surgical History: Cervical Procedure (~1989). CRYOTHERAPY. Endometrial Biopsy (~2002). Ligation of fallopian tube ADVANCE DIRECTIVES:: On filke at [facility]. Nila Arguelles [phone] CODE STATUS:: Full Code INSURANCE COVERAGE / FINANCIAL ISSUES:: Medicare. for Life. Financial Assist 100 PRIMARY CARE PHYSICIAN:: Diane Leblanc POTENTIAL DISCHARGE NEEDS:: Followup with PCP and discharge plan of care PATIENT/FAMILY EDUCATION NEEDS:: Discharge plan, limitations, follow up care, Ask Me Three
--- NOTE | 2018-11-18 11:29 | PHARADMIT ---
Addendum entered by Mary Vásquez 11/19/18 14:59: Pharmacy Note Subjective Feeling better, no more blood in her urine or syncope Objective BP 125/70, afebrile, Mg 1.7, H/H 7.3/23.6 Assessment Will receive 1 more unit of blood today and will likely be dc'd home tomorrow Plan Recheck labs in the AM Original Note: Admission Pharmacy Clinical Review NEAR SYNCOPE, HEMATURIA, RECTAL CA, FISTULA, ANEMIA Code Status Full Code Current Weight 76.2 kg Renally Cleared and Narrow Therapeutic Index Meds CCl~60.54ml/min QTc Value / Action Taken qtc 440 (Sertraline, Ondansetron) BP Control, Fever BP 95/64 (soft-MDAware) Afebrile Electrolytes reviewed K+ 4.0 Mag 1.4 (Mag 4gram IV x1) DVT Prophylaxis NONE-Hematuria Opiate Usage / Scheduled Bowel Regimen Ordered none-yes Plt/SCr for Heparin / Enoxaparin Plt 250 SCr 0.72 INR for Warfarin H/H stable, WBC/Bands H/H 7.1/23.1 (getting 1 unit RBC today) WBC 3.00 Antibiotic appropriateness Cefazolin 1gram personnel representative to OR today Cultures and Sensitivities Urine <10K Surgical ABX d/c within 24 hr DM control / Insulin Dosing BG 110 Novolog scale (home orals not ordered) Heart Failure (Check EF%) (JOSÉ LUIS's, B-Block, Diuretics) IV to PO Switch Home Meds Reviewed Home Meds Not Ordered Calcium, Fluocinolone, Glipizide, Metformin, Hyoscyamine, Lisinopril, Metoprolol, Potassium, Comments Going to OR @ 1:30pm today for Scope by
[2018-11-18] MEDS: MAGNESIUM SULFATE 4 GM/100 ML BAG IVPB (11:45)
[2018-11-18] MEDS: ceFAZolin 1 GM/50 ML BAG IV (13:18)
--- NOTE | 2018-11-18 13:28 | BLADDER_PTH ---
PATIENT: Sherry Werner LOC: [id number]#:[id number] AGE/SX: 63/F ROOM: [id number] RE11/17/[address]: Chris Trotter : 1955 BED: A DIS: 11/20/2018 SPEC #: [id number] RECD: 11/18/18 17:10 STATUS: PAPI REDonal #: [id number] DEON: 11/18/18 13:[address]: Chris Trotter DEPT: Surgical Specimen RECD BY: Daphne Diaz ENTERED: 11/18/18 17:11 SP TYPE: Bladder OTHR DR: SVETLANA Guevara MD Tissues: 1 - BLADDER BIOPSY Procedures: GROSS AND MICRO LEVEL 4 Comments: [id number]
[2018-11-18] MEDS: ACETAMINOPHEN 1,000 MG/100 ML BTL 100 MG (14:05)
[2018-11-18] MEDS: ACETAMINOPHEN 1,000 MG/100 ML BTL 400 MG IVPB (14:05)
--- NOTE | 2018-11-18 14:15 | PGE_ITS ---
Date of Service Date of service: 11/18/18 Time of Service: 11:55 Assessment and Plan (1) Hematuria: Current visit: No Status: Acute She reports hematuria with clots since 10/31. She was hypotensive overnight. Her hemoglobin was down to 7.1 this morning, from 8.4 on admission. She received 1 unit of packed red blood cells. She will have a repeat hemoglobin and hematocrit at 1600, after her procedure today, with possible blood transfusion pending results. After her cystoscopy, Dr. Ruiz's note indicates that he inspected her bladder, the majority of the bladder mucosa appeared normal, with the exception of a 2 to 5 cm papillary area on the left anterior lateral bladder wall. This area appeared to be erythematous and oozing blood. He was able to take biopsies of the area and sent for pathology. He cauterized the biopsy site and the surrounding area. Continuous bladder irrigation with saline was initiated. (2) Anal cancer: Current visit: No Status: Chronic She completed chemotherapy and radiation in 01/2018. Has since developed rectovaginal fistula, s/p drain (x2) placement at [facility] last month. (3) Anemia: Current visit: No Status: Acute Her hemoglobin was down to 7.1 this morning. She received 1 unit of packed red blood cells. Repeat H&H at 1600 with possible blood transfusion at that time pending results. Qualifiers: Anemia type: unspecified type Qualified Code(s): D64.9 - Anemia, unspecified (4) Diabetes mellitus: Current visit: No Status: Chronic Her most recent Hgb A1c was 5.9 in 06/2018. Hold oral agents. Monitor blood glucose at , aspart per sliding scale. 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 Hold metoprolol. Continue IV fluids, monitor blood pressure closely. (6) Gastroesophageal reflux disease: Current visit: No Status: Chronic Contine PPI therapy. (7) Hyperlipidemia: Current visit: No Status: Chronic Continue statin therapy. (8) Hypothyroidism: Current visit: No Status: Chronic History of Grave's. Continue levothyroxine per home dose. (9) DVT prophylaxis: Current visit: No Status: Acute Hold chemical DVT prophylaxis in the setting of hematuria, anemia and urology procedure tomorrow. SCDs for mechanical DVT ppx. (10) Discharge planning issues: Current visit: Yes Status: Acute She is a FULL CODE. She has been seen by palliative in the past, consider palliative consult. This case was discussed with Dr. Trotter who is in agreement. Subjective Interval history since last seen: Sherry Werner was seen prior to going to the OR with Dr. Ruiz. She had a unit of packed red blood cells running. She reports that she feels better than she did yesterday. She denies feeling dizzy or lightheaded. She endorses feeling weak overnight. She reports ongoing hematuria with clots. She continues to feel pressure when she needs to void. She was nauseated this morning, she received Zofran which helped. She is n.p.o. for her procedure today. She is looking forward to getting the procedure done. She is tearful talking about which she has been through over the last year. She denies any shortness of breath, coughing, wheezing. She is a smoker, she denies having any cravings for nicotine. She denies chest pain/pressure, palpitations, edema. Her bowels are moving normally. Exam Narrative Exam Narrative: General: Elderly female, laying in bed with head of bed elevate d, alert and oriented, pleasant and cooperative, in NAD. She is tearful at times. HEENT: Opthalmopathy, pupils equal and round, EOMI, mucous membranes moist. Neck: supple, no JVD. Cardiovascular: Heart has regular rate and rhythm, non-tachycardic, no murmur appreciated. Respiratory: Respirations are even and unlabored, lung sounds clear to auscultation bilaterally. GI: Normoactive bowel sounds throughout, abdomen soft, nontender on palpation, nondistended. Extremities: No clubbing, cyanosis or edema. Objective Objective Clinical Data: Abnormal lab results 11/17/18 11/17/18 11/17/18 Range/Units 14:53 15:15 15:15 WBC (4.4-10.8) k/cumm RBC 2.69 L (4.00-5.20) m/cumm Hgb 8.4 L (12.0-15.5) g/dL Hct 26.3 L (36.0-46.0) % MCV 97.8 H (80-95) fL MCHC 31.9 L (32.0-36.0) g/dL RDW 17.0 H (11.7-14.6) % MPV (8.0-11.0) fL Absolute Lymphocytes 0.63 L (1.2-3.4) k/cumm Sodium 134 L (136-145) mmol/L Glucose (70-100) mg/dL Calcium (8.5-10.1) mg/dL Magnesium (1.8-2.4) mg/dL Urine RBC >50 H (0-2) Crossmatch 11/17/18 11/17/18 11/18/18 Range/Units 15:45 20:15 07:20 WBC (4.4-10.8) k/cumm RBC (4.00-5.20) m/cumm Hgb 7.6 L (12.0-15.5) g/dL Hct 24.6 L (36.0-46.0) % MCV (80-95) fL MCHC (32.0-36.0) g/dL RDW (11.7-14.6) % MPV (8.0-11.0) fL Absolute Lymphocytes (1.2-3.4) k/cumm Sodium (136-145) mmol/L Glucose 110 H (70-100) mg/dL Calcium 8.4 L (8.5-10.1) mg/dL Magnesium 1.4 L (1.8-2.4) mg/dL Urine RBC (0-2) Crossmatch See Detail 11/18/18 Range/Units 07:20 WBC 3.00 L D (4.4-10.8) k/cumm RBC 2.31 L (4.00-5.20) m/cumm Hgb 7.1 L (12.0-15.5) g/dL Hct 23.1 L (36.0-46.0) % MCV 100.0 H (80-95) fL MCHC 30.7 L (32.0-36.0) g/dL RDW 17.4 H (11.7-14.6) % MPV 7.8 L (8.0-11.0) fL Absolute Lymphocytes (1.2-3.4) k/cumm Sodium (136-145) mmol/L Glucose (70-100) mg/dL Calcium (8.5-10.1) mg/dL Magnesium (1.8-2.4) mg/dL Urine RBC (0-2) Crossmatch Vital Signs Temperature 36.8 C 11/18/18 14:01 Temperature Source Tympanic 11/18/18 09:14 Pulse 62 11/18/18 14:01 Respiratory Rate 11 L 11/18/18 14:01 Respiratory Effort 11/18/18 10:03 Respiratory Depth Normal 11/18/18 10:03 Respiratory Pattern Normal 11/18/18 10:03 Blood Pressure 125/73 11/18/18 14:01 Blood Pressure Position Supine 11/17/18 14:30 Pulse Oximetry 98 11/18/18 14:01 Respiratory End-tidal CO2 30 11/18/18 14:01 Oxygen Delivery Method Room Air 11/18/18 14:01 Oxygen Flow Rate 0 11/18/18 11:10 Pain Level 4 11/18/18 14:01 Intake & Output 11/17/18 11/18/18 11/18/18 23:59 11:59 23:59 Intake Total 1320 / 1320 1890.416 / 3140.416 1250 / 3140.416 Output Total 1954 Balance 1320 / 1320 -64.584 / 7728.341 2896 / 1160.416 Weight 75.75 kg 76.2 kg Intake: IV 1020 / 1020 1890.416 / 2340.416 450 / 2340.416 Oral 300 / 300 Blood Product 700 / 700 Rbc Leuko Reduced Unit 700 / 700 [id number] Other 100 / 100 Rbc Leuko Reduced Unit 100 / 100 [id number] Output: Urine 1954 Other: Urine Color Dark Red [place] Urine Appearance Hematuria Cloudy Urine Odor Normal Normal Comment very little output of urine. Stool Size Moderate Stool Characteristics Soft Brown Emesis Description None Voiding Methods Toilet Toilet Laboratory Results WBC 3.00 k/cumm (4.4-10.8) L D 11/18/18 07:20 RBC 2.31 m/cumm (4.00-5.20) L 11/18/18 07:20 Hgb 7.1 g/dL (12.0-15.5) L 11/18/18 07:20 Hct 23.1 % (36.0-46.0) L 11/18/18 07:20 MCV 100.0 fL (80-95) H 11/18/18 07:20 MCH 30.7 pg (27.0-33.0) 11/18/18 07:20 MCHC 30.7 g/dL (32.0-36.0) L 11/18/18 07:20 RDW 17.4 % (11.7-14.6) H 11/18/18 07:20 Plt Count 250 x1000/uL (130-400) 11/18/18 07:20 MPV 7.8 fL (8.0-11.0) L 11/18/18 07:20 Immature Gran % 0.9 11/17/18 15:15 77.7 11/17/18 15:15 11.4 11/17/18 15:15 8.1 11/17/18 15:15 1.4 11/17/18 15:15 0.5 11/17/18 15:15 Absolute Neutrophils 4.30 k/cumm (1.2-6.7) 11/17/18 15:15 Absolute Lymphocytes 0.63 k/cumm (1.2-3.4) L 11/17/18 15:15 Absolute Monocytes 0.45 k/cumm (0.11-0.7) 11/17/18 15:15 Absolute Eosinophils 0.08 k/cumm (0.0-0.7) 11/17/18 15:15 Absolute Basophils 0.03 k/cumm (0.0-0.2) 11/17/18 15:15 PT 9.6 sec (9.3-11.0) 11/17/18 15:15 INR 1.0 (0.9-1.1) 11/17/18 15:15 APTT 23.7 sec (21.0-31.4) 11/17/18 15:15 Sodium 141 mmol/L (136-145) 11/18/18 07:20 Potassium 4.0 mmol/L (3.5-5.1) 11/18/18 07:20 Chloride 107 mmol/L (98-107) 11/18/18 07:20 Carbon Dioxide 24.5 mmol/L (21.0-32.0) 11/18/18 07:20 9.5 mmol/L (3-11) 11/18/18 07:20 BUN 11 mg/dL (7-18) 11/18/18 07:20 0.72 mg/dL (0.55-1.02) 11/18/18 07:20 >= 60.00 (mL/min/1.73m2) 11/18/18 07:20 Glucose 110 mg/dL (70-100) H 11/18/18 07:20 Calcium 8.4 mg/dL (8.5-10.1) L 11/18/18 07:20 Magnesium 1.4 mg/dL (1.8-2.4) L 11/18/18 07:20 0.2 mg/dL (0.2-1.0) 11/17/18 15:15 AST 15 U/L (15-37) 11/17/18 15:15 ALT 22 U/L (14-59) 11/17/18 15:15 82 U/L (46-116) 11/17/18 15:15 < 0.05 ng/mL (0.00-0.06) 11/17/18 15:15 7.1 g/dL (6.4-8.2) 11/17/18 15:15 3.4 g/dL (3.4-5.0) 11/17/18 15:15 Red (Yellow) 11/17/18 14:53 Cloudy (Clear) 11/17/18 14:53 Not Applicable 11/17/18 14:53 Ur Specific [place] 1.012 (1.005-1.025) 11/17/18 14:53 Color interference mg/dL (Negative) 11/17/18 14:53 Color interference mg/dL (Negative) 11/17/18 14:53 Color interference (Negative) 11/17/18 14:53 Color interference (Negative) 11/17/18 14:53 Color interference (Negative) 11/17/18 14:53 Color interference EU/dL (Up TO 0.2) 11/17/18 14:53 Ur Leukocyte Esterase Color interference (Negative) 11/17/18 14:53 >50 (0-2) H 11/17/18 14:53 Not Applicable 11/17/18 14:53 Ur Epithelial Cells Not Applicable 11/17/18 14:53 Not Applicable 11/17/18 14:53 Not Applicable 11/17/18 14:53 Not Applicable 11/17/18 14:53 Ur Culture Indicated? C&s done as ordered 11/17/18 14:53 Color interference mg/dL (Negative) 11/17/18 14:53 Patient ABO/Rh O Positive 11/17/18 15:45 Antibody Screen Negative 11/17/18 15:45 Crossmatch See Detail 11/17/18 15:45
--- NOTE | 2018-11-18 14:31 | ROE_ITS ---
DATE OF PROCEDURE: November 18, 2018 PREOPERATIVE DIAGNOSIS: Gross hematuria. POSTOPERATIVE DIAGNOSIS: Gross hematuria. PROCEDURE: Cystoscopy; clot evacuation; transurethral resection of bladder lesion; cauterization of bladder lesion. SURGEON: Chris Ruiz M.D. ANESTHESIA: General. COMPLICATIONS: None. ESTIMATED BLOOD LOSS: Minimal. HISTORY: This is a 63-year-old woman who has a history of anal cancer. She was treated with radiati on therapy and chemotherapy. She has completed her treatments. She developed gross, painless hematu iglesia with clots. She's had urine cultures that did not show significant uropathogens. She has lost b lood to the point where her serum hemoglobin is 7 and she has had orthostatic changes. She received a unit of blood transfused today and she presents now for a cystoscopy. OPERATIVE REPORT: The patient was brought to the Operating Room on 11/18/18. After successful induct ion of general anesthesia, she was placed in the dorsal lithotomy position. Her genitalia was preppe d and draped sterilely. A 24 Congolese resectoscope sheath was passed through the urethra into the bladder. A large number of c lots were then evacuated manually. The bladder was then inspected with a 30-degree lens. The majority of the bladder mucosa appeared no rmal, with the exception of a 2 to 5 cm papillary area on the left anterior lateral bladder wall. Th is area appeared to be erythematous and oozing blood. I used a resectoscope loop to take biopsies of this area. These biopsies were sent to Pathology for permanent section. We then switched to a ball electrode and cauterized the biopsy site and the surrounding area. No additional bleeding was noted. The resectoscope was removed. A 20 Congolese hematuria catheter was passed through the urethra into the bladder. The catheter balloon was inflated with 30 cc's of ster ile water. Continuous bladder irrigation with saline was then begun. The patient tolerated the procedure well. There were no complications. cc: Thuy Sylvester, MSN, SVETLANA Verduzco M.D. Susan Cagle M.D. Diane Leblanc N.Breann.
--- NOTE | 2018-11-18 14:50 | PDOC.CMIN ---
- If Service Date Differs Date of service: 11/18/18 Time of Service: 14:50 Care Management Initial Assess REASON FOR HOSPITALIZATION:: Hematuria, anemia PAST MEDICAL HISTORY/PAST SURGICAL HISTORY:: Anal cancer, anemia, cancer related pain, debility, depression due to physical illness, diabetes, hypertension, GERD, hyperlipidemia, hypertension, hypothyroidism, Graves' disease, obesity, peripheral edema. Surgical history cryotherapy, endometrial biopsy, ligation of fallopian tubes. PREVIOUS FUNCTIONAL STATUS/SOCIAL/FAMILY SUPPORTS:: Sherry lives at home wtih her spouse. She was recently disabled r/t rectal cancer and treatment. 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 She has a daughter that lives local and a son that lives out of the area. Sherry uses a walker for ambulation. CURRENT FUNCTIONAL STATUS:: Sherry is alert and engaged she states she was hopeful and recovering for recent procedure r/t rectal cancer. She was discouraged when she saw the hematuria however after procedure and meeting with she feels better. She is happy to report her last scan showed no more cancer in her rectum. ADVANCE DIRECTIVES:: Pateint states she does have them, not on file. CM will verify with registry. Has patient been provided with information about the portal?: Yes Did the patient sign up for the portal?: No CODE STATUS:: Full Code INSURANCE COVERAGE / FINANCIAL ISSUES:: Medicare CURRENT HOME/COMMUNITY SERVICES/EQUIPMENT:: FWW, outpatient oncology PRIMARY CARE PHYSICIAN:: POTENTIAL DISCHARGE NEEDS:: Follow up with and primary care as directed. PATIENT/FAMILY EDUCATION NEEDS:: Discharge education and follow up plan of care including ask me three and self management. ANTICIPATED BARRIERS TO DISCHARGE:: None TRANSPORTATION:: Via private car with family at time of discharge. PLAN:: Sherry remains inpateint at this time she will have a transfusion today r/t low hgb and hct. Sherry will be discharged home with no additional services at time of discharge.
--- NOTE | 2018-11-18 15:30 | CHAPLAIN ---
Sherry was in bed when I visited. She's was waiting to have a blood transfusion and thinking she would feel better after that. Her daughter will likely visit after work and she said her may visit too. She grew up in the [facility] and took her kids there as well when they were younger, but she has not been connected to the latter-day recently. Sherry was pleasant, but tired. I will continue to visit.
[2018-11-18 16:32] LABS: HCT 27.3 % (36.0-46.0); HGB 8.5 g/dL (12.0-15.5)
[2018-11-18] MEDS: Simvastatin 10 MG TAB PO (21:12)
[2018-11-19] VITALS (9 sets, daily range): BP systolic 101–125; BP diastolic 55–70; PULSE 72–80; RESP 16–20; TEMP 36–37.4; O2SAT 80–100
[2018-11-19 07:26] LABS: HCT 23.6 % (36.0-46.0); HGB 7.3 g/dL (12.0-15.5); Mean Corp. HGB Concentration 30.9 g/dL (32.0-36.0); Mean Corpuscular Hemoglobin 30.7 pg (27.0-33.0); Mean Corpuscular Volume 99.2 fL (80-95); Mean Platelet Volume 8.8 fL (8.0-11.0); Platelet Count 240 x1000/uL (130-400); RBC 2.38 m/cumm (4.00-5.20); RBC Distribution Width 18.2 % (11.7-14.6); White Blood Cell Count 3.07 k/cumm (4.4-10.8)
[2018-11-19 07:29] LABS: Anion Gap 6.4 mmol/L (3-11); BUN 11 mg/dL (7-18); CO2 25.6 mmol/L (21.0-32.0); CREATININE 0.73 mg/dL (0.55-1.02); Calcium 8.6 mg/dL (8.5-10.1); Chloride 108 mmol/L (98-107); Glucose 126 mg/dL (70-100); Magnesium 1.7 mg/dL (1.8-2.4); Potassium 4.3 mmol/L (3.5-5.1); Sodium 140 mmol/L (136-145)
[2018-11-19] MEDS: Normal Saline 1,000 ML 125 ML IV (07:56)
[2018-11-19] MEDS: Sertraline 50 MG TAB PO (07:56)
[2018-11-19] MEDS: Acetaminophen 325 MG TAB PO ×2 (07:56→21:46)
[2018-11-19] MEDS: Pantoprazole 40 MG TABCR PO (07:56)
--- NOTE | 2018-11-19 09:56 | W.PM.PROGNOT ---
Date of Service Date of service: 11/19/18 Time of Service: 09:57 Assessment and Plan (1) Hematuria: Current visit: No Status: Acute It should be safe to D/C her CBI and remove her weaver. We should have her pathology reports back in a week or so. From my end, she can go home whenever she is medically stable. I just need to see her (or at least speak to her by phone) in 1 week to review her pathology and decide about appropriate followup if the bleeding lesion is shown to be a primary bladder cancer. Subjective Interval history since last seen: She has had a few spasms but no clot retention Exam Narrative Exam Narrative: Her urine is crystal clear Objective Objective Clinical Data: Abnormal lab results 11/17/18 11/18/18 11/19/18 Range/Units 15:45 16:07 06:20 WBC (4.4-10.8) k/cumm RBC (4.00-5.20) m/cumm Hgb 8.5 L (12.0-15.5) g/dL Hct 27.3 L (36.0-46.0) % MCV (80-95) fL MCHC (32.0-36.0) g/dL RDW (11.7-14.6) % Chloride 108 H (98-107) mmol/L Glucose 126 H (70-100) mg/dL Magnesium 1.7 L (1.8-2.4) mg/dL Crossmatch See Detail 11/19/18 Range/Units 06:20 WBC 3.07 L (4.4-10.8) k/cumm RBC 2.38 L (4.00-5.20) m/cumm Hgb 7.3 L (12.0-15.5) g/dL Hct 23.6 L (36.0-46.0) % MCV 99.2 H (80-95) fL MCHC 30.9 L (32.0-36.0) g/dL RDW 18.2 H (11.7-14.6) % Chloride (98-107) mmol/L Glucose (70-100) mg/dL Magnesium (1.8-2.4) mg/dL Crossmatch Vital Signs Temperature 37.4 C 11/19/18 07:50 Temperature Source Tympanic 11/19/18 07:50 Pulse 77 11/19/18 07:50 Pulse Rhythm Regular 11/19/18 08:39 Respiratory Rate 16 11/19/18 08:30 Respiratory Effort Non-Labored 11/19/18 08:39 Respiratory Depth Normal 11/19/18 08:39 Respiratory Pattern Normal 11/19/18 08:39 Blood Pressure 110/65 11/19/18 07:50 Blood Pressure Position Supine 11/17/18 14:30 Pulse Oximetry 97 11/19/18 07:50 Respiratory End-tidal CO2 27 11/18/18 14:30 Oxygen Delivery Method Room Air 11/19/18 07:50 Oxygen Flow Rate 0 11/19/18 07:50 Pain Level 3 11/19/18 08:30 Comment 11/19/18 07:50 Intake & Output 11/18/18 11/18/18 11/19/18 11:59 23:59 11:59 Intake Total 1890.416 / 5216.666 3326.250 / 5216.666 2230 / 2230 Output Total 1954 1800 / 1800 Balance -64.584 / 3211.666 3276.250 / 3211.666 430 / 430 Weight 76.2 kg Intake: IV 1890.416 / 3696.666 1806.250 / 3696.666 1010 / 1010 Oral 720 / 720 1220 / 1220 Blood Product 700 / 700 Rbc Leuko Reduced Unit 700 / 700 [id number] Other 100 / 100 Rbc Leuko Reduced Unit 100 / 100 [id number] Output: Urine 1954 1800 / 1800 Other: Urine Color Dark Red Pale Yellow Urine Appearance Hematuria Clear Clear Urine Odor Normal Normal Comment very little output of urine. Stool Size Moderate Small Stool Characteristics Soft Soft Brown Formed Brown Emesis Description None Voiding Methods Toilet Toilet Laboratory Results WBC 3.07 k/cumm (4.4-10.8) L 11/19/18 06:20 RBC 2.38 m/cumm (4.00-5.20) L 11/19/18 06:20 Hgb 7.3 g/dL (12.0-15.5) L 11/19/18 06:20 Hct 23.6 % (36.0-46.0) L 11/19/18 06:20 MCV 99.2 fL (80-95) H 11/19/18 06:20 MCH 30.7 pg (27.0-33.0) 11/19/18 06:20 MCHC 30.9 g/dL (32.0-36.0) L 11/19/18 06:20 RDW 18.2 % (11.7-14.6) H 11/19/18 06:20 Plt Count 240 x1000/uL (130-400) 11/19/18 06:20 MPV 8.8 fL (8.0-11.0) 11/19/18 06:20 Immature Gran % 0.9 11/17/18 15:15 77.7 11/17/18 15:15 11.4 11/17/18 15:15 8.1 11/17/18 15:15 1.4 11/17/18 15:15 0.5 11/17/18 15:15 Absolute Neutrophils 4.30 k/cumm (1.2-6.7) 11/17/18 15:15 Absolute Lymphocytes 0.63 k/cumm (1.2-3.4) L 11/17/18 15:15 Absolute Monocytes 0.45 k/cumm (0.11-0.7) 11/17/18 15:15 Absolute Eosinophils 0.08 k/cumm (0.0-0.7) 11/17/18 15:15 Absolute Basophils 0.03 k/cumm (0.0-0.2) 11/17/18 15:15 PT 9.6 sec (9.3-11.0) 11/17/18 15:15 INR 1.0 (0.9-1.1) 11/17/18 15:15 APTT 23.7 sec (21.0-31.4) 11/17/18 15:15 Sodium 140 mmol/L (136-145) 11/19/18 06:20 Potassium 4.3 mmol/L (3.5-5.1) 11/19/18 06:20 Chloride 108 mmol/L (98-107) H 11/19/18 06:20 Carbon Dioxide 25.6 mmol/L (21.0-32.0) 11/19/18 06:20 6.4 mmol/L (3-11) 11/19/18 06:20 BUN 11 mg/dL (7-18) 11/19/18 06:20 0.73 mg/dL (0.55-1.02) 11/19/18 06:20 >= 60.00 (mL/min/1.73m2) 11/19/18 06:20 Glucose 126 mg/dL (70-100) H 11/19/18 06:20 Calcium 8.6 mg/dL (8.5-10.1) 11/19/18 06:20 Magnesium 1.7 mg/dL (1.8-2.4) L 11/19/18 06:20 0.2 mg/dL (0.2-1.0) 11/17/18 15:15 AST 15 U/L (15-37) 11/17/18 15:15 ALT 22 U/L (14-59) 11/17/18 15:15 82 U/L (46-116) 11/17/18 15:15 < 0.05 ng/mL (0.00-0.06) 11/17/18 15:15 7.1 g/dL (6.4-8.2) 11/17/18 15:15 3.4 g/dL (3.4-5.0) 11/17/18 15:15 Red (Yellow) 11/17/18 14:53 Cloudy (Clear) 11/17/18 14:53 Not Applicable 11/17/18 14:53 Ur Specific [place] 1.012 (1.005-1.025) 11/17/18 14:53 Color interference mg/dL (Negative) 11/17/18 14:53 Color interference mg/dL (Negative) 11/17/18 14:53 Color interference (Negative) 11/17/18 14:53 Color interference (Negative) 11/17/18 14:53 Color interference (Negative) 11/17/18 14:53 Color interference EU/dL (Up TO 0.2) 11/17/18 14:53 Ur Leukocyte Esterase Color interference (Negative) 11/17/18 14:53 >50 (0-2) H 11/17/18 14:53 Not Applicable 11/17/18 14:53 Ur Epithelial Cells Not Applicable 11/17/18 14:53 Not Applicable 11/17/18 14:53 Not Applicable 11/17/18 14:53 Not Applicable 11/17/18 14:53 Ur Culture Indicated? C&s done as ordered 11/17/18 14:53 Color interference mg/dL (Negative) 11/17/18 14:53 Patient ABO/Rh O Positive 11/17/18 15:45 Antibody Screen Negative 11/17/18 15:45 Crossmatch See Detail 11/17/18 15:45
--- NOTE | 2018-11-19 13:24 | W.PM.PROGNOT ---
Date of Service Date of service: 11/19/18 Time of Service: 13:24 Assessment and Plan (1) Hematuria: Current visit: No Status: Acute Resolved. She went to the OR with Urology for cystoscopy yesterday and had CBI overnight. Dr. Ruiz's note indicates that he inspected her bladder, the majority of the bladder mucosa appeared normal, with the exception of a 2 to 5 cm papillary area on the left anterior lateral bladder wall. This area appeared to be erythematous and oozing blood. He was able to take biopsies of the area and sent for pathology. He cauterized the biopsy site and the surrounding area. Continuous bladder irrigation with saline was initiated. CBI discontinued by Dr. Ruiz this morning. Her urine is clear. However, her Hgb is down to 7.3 today. She received one unit of PRBCs yesterday. Will give another unit today and monitor overnight. Likely for discharge tomorrow. (2) Anal cancer: Current visit: No Status: Chronic She completed chemotherapy and radiation in 01/2018. Has since developed rectovaginal fistula, s/p drain (x2) placement at [facility] last month. (3) Anemia: Current visit: No Status: Acute Her hemoglobin was down again this morning to 7.3. She received 1 unit of packed red blood cells yesterday. Will give another unit of PRBCs today, repeat H&H 2 hours post transfusion. Repeat labs tomorrow morning. If stable, she will likely be discharged home tomorrow. Qualifiers: Anemia type: unspecified type Qualified Code(s): D64.9 - Anemia, unspecified (4) Diabetes mellitus: Current visit: No Status: Chronic Her most recent Hgb A1c was 5.9 in 06/2018. Her blood glucose here has been in the 100s. Continue to hold oral agents. Monitor blood glucose at , aspart per sliding scale. 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 Blood pressure remains soft today. Continue to hold metoprolol. (6) Gastroesophageal reflux disease: Current visit: No Status: Chronic Contine PPI therapy. (7) Hyperlipidemia: Current visit: No Status: Chronic Continue statin therapy. (8) Hypothyroidism: Current visit: No Status: Chronic History of Grave's. Continue levothyroxine per home dose. (9) DVT prophylaxis: Current visit: No Status: Acute Hold chemical DVT prophylaxis in the setting of hematuria, anemia and urology procedure tomorrow. SCDs for mechanical DVT ppx. (10) Discharge planning issues: Current visit: Yes Status: Acute She is a FULL CODE. She has been seen by palliative in the past, consider palliative consult. This case was discussed with Dr. Chao who is in agreement. Subjective Interval history since last seen: Sherry went to the OR with Dr. Ruiz yesterday for a cystoscopy yesterday, Dr. Ruiz made note of a 2 to 5 cm papillary area on the left anterior lateral bladder wall. This area appeared to be erythematous and oozing blood. He was able to take biopsies of the area and sent for pathology. He cauterized the biopsy site and the surrounding area. Continuous bladder irrigation with saline was initiated. She remained on CBI overnight and it was discontinued this morning. Her urine is clear. Her Hgb was down to 7.3 this morning. One unit of PRBCs is ordered. She reports feeling better today, she feels less fatigued, her blood pressure remains soft, she denies feeling dizzy or lightheaded. She does not feel as weak as she did yesterday. She denies shortness of breath, coughing, wheezing, chest pain/pressure, palpitations. She is eating and drinking and tolerating her diet. She denies nausea, vomiting or diarrhea. She had a normal bowel movement. She is pleased that she does not have any blood in her urine. She denies dysuria. Exam Narrative Exam Narrative: General: Elderly female, sitting up in the chair, alert and oriented, pleasant and cooperative, in NAD. Smiling and conversing with staff. HEENT: Opthalmopathy, pupils equal and round, EOMI, mucous membranes moist. Neck: supple, no JVD. Cardiovascular: Heart has regular rate and rhythm, non-tachycardic, no murmur appreciated. Respiratory: Respirations are even and unlabored, lung sounds clear to auscultation bilaterally. GI: Normoactive bowel sounds throughout, abdomen soft, nontender on palpation, nondistended. Extremities: No clubbing, cyanosis or edema. Objective Objective Clinical Data: Abnormal lab results 11/17/18 11/18/18 11/19/18 Range/Units 15:45 16:07 06:20 WBC (4.4-10.8) k/cumm RBC (4.00-5.20) m/cumm Hgb 8.5 L (12.0-15.5) g/dL Hct 27.3 L (36.0-46.0) % MCV (80-95) fL MCHC (32.0-36.0) g/dL RDW (11.7-14.6) % Chloride 108 H (98-107) mmol/L Glucose 126 H (70-100) mg/dL Magnesium 1.7 L (1.8-2.4) mg/dL Crossmatch See Detail 11/19/18 Range/Units 06:20 WBC 3.07 L (4.4-10.8) k/cumm RBC 2.38 L (4.00-5.20) m/cumm Hgb 7.3 L (12.0-15.5) g/dL Hct 23.6 L (36.0-46.0) % MCV 99.2 H (80-95) fL MCHC 30.9 L (32.0-36.0) g/dL RDW 18.2 H (11.7-14.6) % Chloride (98-107) mmol/L Glucose (70-100) mg/dL Magnesium (1.8-2.4) mg/dL Crossmatch Vital Signs Temperature 36 C L 11/19/18 12:27 Temperature Source Tympanic 11/19/18 07:50 Pulse 75 11/19/18 12:27 Pulse Rhythm Regular 11/19/18 08:39 Respiratory Rate 16 11/19/18 12:27 Respiratory Effort Non-Labored 11/19/18 08:39 Respiratory Depth Normal 11/19/18 08:39 Respiratory Pattern Normal 11/19/18 08:39 Blood Pressure 101/62 11/19/18 12:27 Blood Pressure Position Supine 11/17/18 14:30 Pulse Oximetry 100 11/19/18 12:27 Respiratory End-tidal CO2 27 11/18/18 14:30 Oxygen Delivery Method Room Air 11/19/18 12:27 Oxygen Flow Rate 0 11/19/18 12:27 Pain Level 3 11/19/18 08:30 Comment 11/19/18 07:50 Intake & Output 11/18/18 11/19/18 11/19/18 23:59 11:59 23:59 Intake Total 3326.250 / 5216.666 2230 / 2230 Output Total 2004 1800 / 1800 Balance 3276.250 / 3211.666 430 / 430 Weight 78.2 kg 78.2 kg Intake: IV 1806.250 / 3696.666 1010 / 1010 Oral 720 / 720 1220 / 1220 Blood Product 700 / 700 Rbc Leuko Reduced Unit 700 / 700 [id number] Other 100 / 100 Rbc Leuko Reduced Unit 100 / 100 [id number] Output: Urine 2004 1800 / 1800 Other: Urine Color Pale Yellow Urine Appearance Clear Clear Urine Odor Normal Comment very little output of urine. Stool Size Moderate Small Stool Characteristics Soft Soft Brown Formed Brown Emesis Description None Voiding Methods Toilet Laboratory Results WBC 3.07 k/cumm (4.4-10.8) L 11/19/18 06:20 RBC 2.38 m/cumm (4.00-5.20) L 11/19/18 06:20 Hgb 7.3 g/dL (12.0-15.5) L 11/19/18 06:20 Hct 23.6 % (36.0-46.0) L 11/19/18 06:20 MCV 99.2 fL (80-95) H 11/19/18 06:20 MCH 30.7 pg (27.0-33.0) 11/19/18 06:20 MCHC 30.9 g/dL (32.0-36.0) L 11/19/18 06:20 RDW 18.2 % (11.7-14.6) H 11/19/18 06:20 Plt Count 240 x1000/uL (130-400) 11/19/18 06:20 MPV 8.8 fL (8.0-11.0) 11/19/18 06:20 Immature Gran % 0.9 11/17/18 15:15 77.7 11/17/18 15:15 11.4 11/17/18 15:15 8.1 11/17/18 15:15 1.4 11/17/18 15:15 0.5 11/17/18 15:15 Absolute Neutrophils 4.30 k/cumm (1.2-6.7) 11/17/18 15:15 Absolute Lymphocytes 0.63 k/cumm (1.2-3.4) L 11/17/18 15:15 Absolute Monocytes 0.45 k/cumm (0.11-0.7) 11/17/18 15:15 Absolute Eosinophils 0.08 k/cumm (0.0-0.7) 11/17/18 15:15 Absolute Basophils 0.03 k/cumm (0.0-0.2) 11/17/18 15:15 PT 9.6 sec (9.3-11.0) 11/17/18 15:15 INR 1.0 (0.9-1.1) 11/17/18 15:15 APTT 23.7 sec (21.0-31.4) 11/17/18 15:15 Sodium 140 mmol/L (136-145) 11/19/18 06:20 Potassium 4.3 mmol/L (3.5-5.1) 11/19/18 06:20 Chloride 108 mmol/L (98-107) H 11/19/18 06:20 Carbon Dioxide 25.6 mmol/L (21.0-32.0) 11/19/18 06:20 6.4 mmol/L (3-11) 11/19/18 06:20 BUN 11 mg/dL (7-18) 11/19/18 06:20 0.73 mg/dL (0.55-1.02) 11/19/18 06:20 >= 60.00 (mL/min/1.73m2) 11/19/18 06:20 Glucose 126 mg/dL (70-100) H 11/19/18 06:20 Calcium 8.6 mg/dL (8.5-10.1) 11/19/18 06:20 Magnesium 1.7 mg/dL (1.8-2.4) L 11/19/18 06:20 0.2 mg/dL (0.2-1.0) 11/17/18 15:15 AST 15 U/L (15-37) 11/17/18 15:15 ALT 22 U/L (14-59) 11/17/18 15:15 82 U/L (46-116) 11/17/18 15:15 < 0.05 ng/mL (0.00-0.06) 11/17/18 15:15 7.1 g/dL (6.4-8.2) 11/17/18 15:15 3.4 g/dL (3.4-5.0) 11/17/18 15:15 Red (Yellow) 11/17/18 14:53 Cloudy (Clear) 11/17/18 14:53 Not Applicable 11/17/18 14:53 Ur Specific Eagle 1.012 (1.005-1.025) 11/17/18 14:53 Color interference mg/dL (Negative) 11/17/18 14:53 Color interference mg/dL (Negative) 11/17/18 14:53 Color interference (Negative) 11/17/18 14:53 Color interference (Negative) 11/17/18 14:53 Color interference (Negative) 11/17/18 14:53 Color interference EU/dL (Up TO 0.2) 11/17/18 14:53 Ur Leukocyte Esterase Color interference (Negative) 11/17/18 14:53 >50 (0-2) H 11/17/18 14:53 Not Applicable 11/17/18 14:53 Ur Epithelial Cells Not Applicable 11/17/18 14:53 Not Applicable 11/17/18 14:53 Not Applicable 11/17/18 14:53 Not Applicable 11/17/18 14:53 Ur Culture Indicated? C&s done as ordered 11/17/18 14:53 Color interference mg/dL (Negative) 11/17/18 14:53 Patient ABO/Rh O Positive 11/17/18 15:45 Antibody Screen Negative 11/17/18 15:45 Crossmatch See Detail 11/17/18 15:45
[2018-11-19] MEDS: MAGNESIUM SULFATE 2 GM/50 ML BAG IVPB (14:25)
--- NOTE | 2018-11-19 14:40 | PDOC.CMPRO ---
- If Service Date Differs Date of service: 11/19/18 Time of Service: 14:40 Care Management Progress Note S/O: Sherry is alert and engaged. She will have a transfusion of PRBC today due to a low hgb, hct. CBI was stopped. Anticipate she will be ready for discharge home in the next 24 hours if she is medically stable able to maintain her hgb and hct. Sherry will not need any additional services at time of discharge. CM confirmed her advance directives are registered and scanned them into the system. A: Sherry is a 63 year old female admitted with hematuria P:Sherry remains inpatient at this time she will have a transfusion today r/t low hgb and hct. Sherry will be discharged home with no additional services at time of discharge.
[2018-11-19 17:31] LABS: HCT 28.2 % (36.0-46.0); HGB 9.1 g/dL (12.0-15.5)
[2018-11-19] MEDS: Simvastatin 10 MG TAB PO (21:47)
[2018-11-20 07:20] LABS: HCT 28.8 % (36.0-46.0); Mean Corp. HGB Concentration 31.3 g/dL (32.0-36.0); Mean Corpuscular Hemoglobin 30.5 pg (27.0-33.0); Mean Corpuscular Volume 97.6 fL (80-95); Mean Platelet Volume 8.6 fL (8.0-11.0); Platelet Count 247 x1000/uL (130-400); RBC 2.95 m/cumm (4.00-5.20); RBC Distribution Width 17.5 % (11.7-14.6); White Blood Cell Count 2.55 k/cumm (4.4-10.8)
[2018-11-20 07:21] LABS: Anion Gap 8.3 mmol/L (3-11); BUN 14 mg/dL (7-18); CO2 26.7 mmol/L (21.0-32.0); CREATININE 0.81 mg/dL (0.55-1.02); Calcium 8.9 mg/dL (8.5-10.1); Chloride 106 mmol/L (98-107); Glucose 136 mg/dL (70-100); Magnesium 1.8 mg/dL (1.8-2.4); Potassium 3.9 mmol/L (3.5-5.1); Sodium 141 mmol/L (136-145)
[2018-11-20 08:02] VITALS: BP 116/64; PULSE 86; RESP 20; TEMP 36.7; O2SAT 96
[2018-11-20] MEDS: Acetaminophen 325 MG TAB 650 MG PO (09:08)
[2018-11-20] MEDS: Pantoprazole 40 MG TABCR PO (09:09)
[2018-11-20] MEDS: Sertraline 50 MG TAB PO (09:09)
[2018-11-20] MEDS: Insulin Aspart 300 UNITS/3 ML PEN SC (09:09)
[2018-11-20 09:39] VITALS: RESP 16
[2018-11-20 11:13] VITALS: BP 110/65; PULSE 67; RESP 19; TEMP 36.5; O2SAT 98
--- NOTE | 2018-11-20 12:38 | W.PM.DS.N ---
Date of service: 11/20/18 Time of Service: 12:38 DS: Diagnosis Discharge Diagnosis (1) Hematuria: Start date: 11/20/18 Start time: 12:38 Status: Acute Asessment and Plan: Resolved after cystoscopy with Dr. Ruiz. Dr. Ruiz's note indicates that he inspected her bladder, the majority of the bladder mucosa appeared normal, with the exception of a 2 to 5 cm papillary area on the left anterior lateral bladder wall. This area appeared to be erythematous and oozing blood. He was able to take biopsies of the area and sent for pathology. He cauterized the biopsy site and the surrounding area. Continuous bladder irrigation with saline was initiated. CBI discontinued by Dr. Ruiz yesterday. Her urine is clear. She continues to have no bleeding. Follow up in one week with Dr. Ruiz for biopsy results. (2) Anal cancer: Status: Chronic (3) Anemia: Start date: 11/20/18 Start time: 12:40 Status: Acute Asessment and Plan: Received a total of 3 units PRBC. Recheck labs in one week. (4) Diabetes mellitus: Status: Chronic (5) Essential hypertension: Status: Chronic (6) Gastroesophageal reflux disease: Status: Chronic (7) Hyperlipidemia: Status: Chronic (8) Hypothyroidism: Status: Chronic (9) DVT prophylaxis: Status: Acute (10) Discharge planning issues: Status: Acute Discharge Plan Disposition Patient Disposition: HOME Condition: Good Discharge Details Chief Complaint: Dizzy/Sync Reason For Visit: NEAR SYNCOPE,HEMATURIA,RECTAL CA,FISTULA,ANEMIA Admit Date/Time: 11/17/18 16:41 Admit Provider: Chris Trotter Attending Provider: Chris Trotter Primary Care Provider: Diane Leblanc ED Provider: Mark Sanders Hospital Course Hospital Course: 63 y.o female with PMH rectal cancer, s/p treatment with chemotherapy and radiation in January 2018, with subsequent development of rectovaginal fistula s/p drain placement at [facility] [place] last month, now presenting with weakness, fatigue and hematuria with blood clots that began on 10/31/18. She also has a history of depression on zoloft, Grave's disease, diabetes, hyperlipidemia and HTN. Admitted on 11/17 after having a near syncopal episode at her PCP for evaluation of hematuria. Upon admission she had hemoglobin 8.4 with hypotension. IVF were started and Dr. Ruiz was consulted. During her course hemoglobin dropped to 7.1 on 11/18. She was transfused one unit PRBC and taken to the OR for cystoscopy by Dr. Ruiz. Dr. Riuz's note indicates that he inspected her bladder, the majority of the bladder mucosa appeared normal, with the exception of a 2 to 5 cm papillary area on the left anterior lateral bladder wall. This area appeared to be erythematous and oozing blood. He was able to take biopsies of the area and sent for pathology. He cauterized the biopsy site and the surrounding area. Continuous bladder irrigation with saline was initiated. CBI was discontinued on 11/19. She did require another unit of RBC for hemoglobin 7.3, on 11/19, however bleeding was no longer an issue and her hemoglobin increased to 9.0 by am labs. She denies bleeding and clots. Dizziness has resolved. She appears pale but in good spirits. She states she is feeling much better and ready for discharge. She will be discharged home with a f/u for Dr. Ruiz in 1 week. Recheck labs in 1 week and follow up with PCP in 2 weeks. She denies CP,SOB, N/V/D. Home Meds and New Rx's Prescriptions: Continued sertraline 50 mg tablet 50 mg PO DAILY Qty: 90 RF: 3 acetaminophen 500 MG tablet 1 tab PO PRN RF: 0 calcium carbonate 500 MG tablet 1 tab.chew PO BID RF: 0 (DME) blood-glucose meter 1 EACH misc 1 ea Miscellaneous DAILY Qty: 1 RF: 0 Emergen-C 1,000 MG powder effervescent in packet 1 packet PO PRN RF: 0 fluocinolone [Synalar] 120 GM ointment 1 applic Topical BID Qty: 1 RF: 2 (DME) lancets 1 EACH misc 1 ea Miscellaneous BID Qty: 200 RF: 4 polyethylene glycol 3350 17 gram/dose powder 17 gm PO DAILY PRN (Reason: constipation) Qty: 255 RF: 2 (DME) Blood Glucose Test strip 1 ea Miscellaneous BID Qty: 200 RF: 4 glipizide 2.5 mg tablet extended release 24hr 5 mg PO BID Qty: 180 RF: 3 metoprolol succinate 25 mg tablet extended release 24 hr 25 mg PO DAILY Qty: 90 RF: 3 simvastatin [Zocor] 10 mg tablet 10 mg PO HS Qty: 90 RF: 4 pantoprazole 40 mg tablet,delayed release (DR/EC) 40 mg PO DAILY@0730 Qty: 90 RF: 3 levothyroxine [Synthroid] 137 mcg tablet 137 mcg PO DAILY Qty: 90 RF: 4 potassium chloride 20 mEq tablet extended release 20 meq PO DAILY Qty: 90 RF: 3 ondansetron [Zofran ODT] 4 mg Tablet,Disintegrating 4 mg PO PRN PRNRF: 0 metformin 500 mg Tablet 500 mg PO BID@0800,1700 Qty: 60 RF: 0 hyoscyamine sulfate [Anaspaz] 0.125 mg tablet,disintegrating 0.125 mg PO BID-QID PRN (Reason: bladder pain) Qty: 30 RF: 0 Discharge Instructions Instructions: Dysfunctional Uterine Bleeding (GEN), Hematuria (GEN), Hypotension (GEN), Anemia (GEN) Additional Instructions: Follow up with PCP in 2 weeks. Follow up with Dr. Ruiz in 1 week for pathology results. Recheck hemoglobin in 1 week. Drink plenty of fluids. Resume BP medications. Seek medical treatment if you have CP, SOB, N/V/D or start to have severe bleeding in clots. Stand Alone Forms: Nursing Discharge Form Referrals: Diane Leblanc NP [Primary Care Provider] - 11/25/18 10:00 am Activity:: Activity as Tolerated Equipment/Supplies:: No Equipment Needed Diet:: As Tolerated Discharge Orders Discharge Orders: Discharge Order (Routine); Ordered 11/20/18 Ordered By: Lucina Alves DS: Summary Status at Discharge Functional status at discharge: uses cane/walker Overall status at discharge: patient is back to baseline Mental Status: mental status grossly normal Speech and Movement: speech and movement normal Mood: congruent mood Affect: normal affect Exam Narrative Exam Narrative: General: Elderly female, lying in bed talking on the phone, alert and oriented, pleasant and cooperative, in NAD. Smiling and conversing with staff. HEENT: Opthalmopathy, pupils equal and round, EOMI, mucous membranes moist. Neck: supple, no JVD. Cardiovascular: Heart has regular rate and rhythm, non-tachycardic, no murmur appreciated. Respiratory: Respirations are even and unlabored, lung sounds clear to auscultation bilaterally. GI: Normoactive bowel sounds throughout, abdomen soft, nontender on palpation, nondistended. Extremities: No clubbing, cyanosis or edema. Psych Mental Status: mental status grossly normal Speech and Movement: speech and movement normal Mood: congruent mood Affect: normal affect DS: Data Vitals/I&O Vitals and I&O: Vital Signs Temperature 36.5 C 11/20/18 11:13 Temperature Source Tympanic 11/20/18 11:13 Pulse 67 11/20/18 11:13 Pulse Rhythm Regular 11/19/18 19:50 Respiratory Rate 11/20/18 11:13 Respiratory Effort Non-Labored 11/19/18 19:50 Respiratory Depth Normal 11/19/18 19:50 Respiratory Pattern Normal 11/19/18 19:50 Blood Pressure 110/65 11/20/18 11:13 Blood Pressure Position Supine 11/17/18 14:30 Pulse Oximetry 98 11/20/18 11:13 Respiratory End-tidal CO2 27 11/18/18 14:30 Oxygen Delivery Method Room Air 11/20/18 11:13 Oxygen Flow Rate 0 11/20/18 11:13 Pain Level 1 11/20/18 11:13 Comment 11/19/18 11:40 Intake & Output 11/19/18 11/20/18 11/20/18 23:59 11:59 23:59 Intake Total 2320 / 4550 300 / 300 Balance 2320 / 2750 300 / 300 Weight 78.2 kg Intake: IV 999 / 2009 Oral 970 / 2190 300 / 300 Blood Product 350 / 350 Rbc Leuko Reduced Unit 350 / 350 [id number] Other: Urine Color Pale Yellow Urine Appearance Clear Clear Clots Urine Odor None None Comment Pt passed a small (3mm by 1mm) clot with pale tissue attached while she was on the toilet voiding. Pt is unsure if it came from urethra as she did not feel it and has been able to feel clogs when she has passed clots previously. no hat in toilet Pts incontinence is a small amount and r/t not being able to hold it until someone can answer her call doyle and take her to the toilet. Stool Size Moderate Moderate Stool Characteristics Soft Formed Formed Brown Brown Voiding Methods Toilet Toilet Data Completed and Pending Labs on day of discharge: Labs from last 24 hours 11/20/18 11/20/18 11/19/18 06:20 06:20 Unknown WBC 2.55 L RBC 2.95 L Hgb 9.0 L Cancelled Hct 28.8 L Cancelled MCV 97.6 H MCH 30.5 MCHC 31.3 L RDW 17.5 H Plt Count 247 MPV 8.6 Sodium 141 Potassium 3.9 Chloride 106 Carbon Dioxide 26.7 Anion Gap 8.3 BUN 14 Creatinine 0.81 Estimated GFR/1.73 m2 >= 60.00 Glucose 136 H Calcium 8.9 Magnesium 1.8 Crossmatch 11/19/18 11/17/18 17:15 15:45 WBC RBC Hgb 9.1 L Hct 28.2 L MCV MCH MCHC RDW Plt Count MPV Sodium Potassium Chloride Carbon Dioxide Anion Gap BUN Creatinine Estimated GFR/1.73 m2 Glucose Calcium Magnesium Crossmatch See Detail [facility] Medical History Acute kidney failure (Acute) Advanced directives, counseling/discussion (Chronic) Anal cancer (Chronic) Anemia (Acute) Cancer related pain (Chronic) Debility (Chronic) 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) Diabetes Diabetes mellitus (Chronic 07/07/12) DVT prophylaxis (Acute) Essential hypertension (Chronic 01/02/13) Female infertility Gastroesophageal reflux disease (Chronic) GERD (gastroesophageal reflux disease) Goals of care, counseling/discussion (Chronic) Hematuria (Acute) Hyperlipidemia Hyperlipidemia (Chronic) Hypertension Hypokalemia (Acute) Hypomagnesemia (Acute) Hypotension determined by examination (Acute) Hypothyroidism H/O Graves Hypothyroidism (Chronic 07/07/12) H/O GRAVES ophthalmopathy Increased BMI (Chronic) Mass of anus (Acute 11/08/17) 11/04/17 -Hyperplastic polyps of descending colon and rectum Invasive keratinizing squamous cell carcinoma -Tumor invading at least rectal mucosa and submucosa [facility] [place] referral initiated by Dr. Wolff Obesity (BMI 30-39.9) Peripheral edema (Resolved) Sepsis (Resolved) Shock circulatory (Resolved) Smoker (Resolved) Quit October 2017 SVT (supraventricular tachycardia) (Acute) UTI (urinary tract infection) (Acute) Varicose veins of both lower extremities Varicose veins of lower extremity (Acute) Surgical History Cervical Procedure (~1989) CRYOTHERAPY Endometrial Biopsy (~2002) Ligation of fallopian tube Family History Mother , of cirrhosis at age 68, likely from lifelong obesity Diabetes Essential hypertension Depression Heart disease Hyperlipidemia Neoplasm LIVER Stroke Father , dad aged 40 from AMI Heart disease Myocardial infarction Sister Hyperlipidemia Asthma Grandfather Neoplasm LUNG Grandmother Stroke Son Diabetes Asthma Daughter Anxiety Heart disease BORN WITH ENLARGED HEART Social History Smoking/Tobacco Use Status: Former Tobacco Use Quit status: has quit before Counseling given: counseling >3 minutes Alcohol Intake: never Drug use: Never Substance use type: does not use Household members: none 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
--- NOTE | 2018-11-20 13:58 | CMDISCH_ITS ---
- If Service Date Differs Date of service: 11/20/18 Time of Service: 13:58 LACE Index Scoring Tool - Questions: Length of Stay (in days): 3 Acuity (Admit via E.D.?): Yes Comorbidities: Diabetes w/o Complication, Any Tumor E.D. Visits: 5 - Answers: Total Score: 13 Risk of Readmission: High Risk Care Management Discharge Reason for Hospitalization: Hematuria, anemia Discharge Plan: Sherry is being discharged home today. CM referred her to [facility] for moderate needs [facility]. Sherry has difficulty wtih chores in the home r/t diagnosis and recovery. Sherry will be transported home today via daughter in private car. She states she is ready to return home and feels improved. She understands she will have a follow up with urology and she is scheduled for follow up at [facility] [place] on 11/25/18. Patient/Family Education Needs: Discharge education, limitations and follow up plan of care including ask me three and self management.
== END 2018-11-20 15:21 | disposition home or self-care (01) | DRG 669 ==
LOC: ER 15:31 → MS 19:19
PROVIDERS: Nurse Practitioner; Urology; Admitting Provider Internal Medicine; Emergency Provider Student in an Organized Health Care Education/Training Program; Visit Provider Internal Medicine
PROC: 0TBB8ZX Excision of Bladder, Via Natural or Artificial Opening Endoscopic, Diagnostic (ICD-10-PCS; CPT 52204; principal; 2018-11-18 12:30)
DX: R31.0 Gross hematuria (principal); D62 Acute posthemorrhagic anemia; C67.2 Malignant neoplasm of lateral wall of bladder; I95.9 Hypotension, unspecified; N32.89 Other specified disorders of bladder; F32.9 Major depressive disorder, single episode, unspecified; E05.00 Thyrotoxicosis with diffuse goiter without thyrotoxic crisis or storm; E11.9 Type 2 diabetes mellitus without complications; I10 Essential (primary) hypertension; E78.5 Hyperlipidemia, unspecified; K21.9 Gastro-esophageal reflux disease without esophagitis; Z85.048 Personal history of other malignant neoplasm of rectum, rectosigmoid junction, and anus; Z92.21 Personal history of antineoplastic chemotherapy; Z92.3 Personal history of irradiation; F17.210 Nicotine dependence, cigarettes, uncomplicated
CPT/HCPCS: 52235; 52001; 36415; 36430; 80048; 80053; 85027; 86850; 86900; 86901; 86920; 88305; 93005; 96360; 99221; 99222; 99232; 99252; 99285; 81003; 81015; 83735; 84484; 85014; 85018; 85025; 85610; 85730; 87086; 93010; 99239; J0131; J0690; J2405; J3475; P9016

== ENCOUNTER → 2018-11-18 13:21 | Outpatient (BNVA) | payer MEDICARE, OTHER, SELFPAY | PROVIDERS: Visit Provider Urology | DX: R69 Illness, unspecified (principal) ==

== ENCOUNTER 2018-12-01 09:29 | Outpatient (CLI) | payer MEDICARE, OTHER, SELFPAY ==
[2018-12-01 14:04] LABS: Abs Immature Grans 0.04 k/cumm (0.0-0.09); Absolute Basophil Count 0.03 k/cumm (0.0-0.2); Absolute Eosinophil Count 0.05 k/cumm (0.0-0.7); Absolute Monocyte Count 0.45 k/cumm (0.11-0.7); Absolute Neutrophil Count 3.99 k/cumm (1.2-6.7); Basophils % 0.6; HCT 34.4 % (36.0-46.0); HGB 11.2 g/dL (12.0-15.5); Immature Grans % 0.8; Lymphocytes % 11.6; Mean Corp. HGB Concentration 32.6 g/dL (32.0-36.0); Mean Corpuscular Hemoglobin 31.5 pg (27.0-33.0); Mean Corpuscular Volume 96.6 fL (80-95); Monocytes % 8.7; Neutrophils % 77.3; Platelet Count 317 x1000/uL (130-400); RBC 3.56 m/cumm (4.00-5.20); RBC Distribution Width 16.6 % (11.7-14.6); White Blood Cell Count 5.16 k/cumm (4.4-10.8)
[2018-12-01 14:22] LABS: ALT 23 U/L (14-59); AST 13 U/L (15-37); Albumin 3.6 g/dL (3.4-5.0); Alkaline Phosphatase 85 U/L (46-116); Anion Gap 10.6 mmol/L (3-11); BUN 18 mg/dL (7-18); Bilirubin, Total 0.3 mg/dL (0.2-1.0); CO2 25.4 mmol/L (21.0-32.0); CREATININE 0.82 mg/dL (0.55-1.02); Calcium 9.5 mg/dL (8.5-10.1); Chloride 101 mmol/L (98-107); Glucose 93 mg/dL (70-100); Potassium 4.3 mmol/L (3.5-5.1); Sodium 137 mmol/L (136-145); Total Protein 7.7 g/dL (6.4-8.2)
== END 2018-12-01 09:49 ==
PROVIDERS: Visit Provider Internal Medicine Hematology & Oncology
DX: C21.0 Malignant neoplasm of anus, unspecified (principal)
CPT/HCPCS: 36415; 80053; 85025

== ENCOUNTER → 2018-12-02 11:12 | Outpatient (BNVA) | payer MEDICARE, OTHER, SELFPAY | PROVIDERS: Visit Provider Urology | DX: C67.9 Malignant neoplasm of bladder, unspecified (principal); Z48.816 Encounter for surgical aftercare following surgery on the genitourinary system; Z85.048 Personal history of other malignant neoplasm of rectum, rectosigmoid junction, and anus | CPT/HCPCS: 99213 ==

== ENCOUNTER 2018-12-07 15:17 | Emergency (ER) | payer MEDICARE, OTHER, SELFPAY ==
[2018-12-07] VITALS (20 sets, daily range): BP systolic 102–114; BP diastolic 42–74; PULSE 78–87; RESP 10–23; TEMP 36.7–37.3; O2SAT 69–99
[2018-12-07] MEDS: Normal Saline Flush 10 ML SYR IVP (15:30)
--- NOTE | 2018-12-07 15:35 | ED.GENADUL_ITS ---
Discharge Plan Disposition Patient Disposition: HOME Condition: Improving Discharge Details Chief Complaint: Dizzy/Sync Clinical Impression: Acute dehydration, Acute UTI Primary Care Provider: Diane Leblanc ED Provider: Dion Ortiz Home Meds and New Rx's Prescriptions: New cephalexin 500 mg capsule 500 mg PO TID 7 Days Qty: 21 RF: 0 Continued Metamucil 3.4 gram/5.4 gram powder 2 tsp PO .Every Other Day RF: 0 sertraline 50 mg tablet 50 mg PO DAILY Qty: 90 RF: 3 acetaminophen 500 MG tablet 1 tab PO PRN RF: 0 calcium carbonate 500 MG tablet 1 tab.chew PO BID RF: 0 (DME) blood-glucose meter 1 EACH misc 1 ea Miscellaneous DAILY Qty: 1 RF: 0 Emergen-C 1,000 MG powder effervescent in packet 1 packet PO PRN RF: 0 fluocinolone [Synalar] 120 GM ointment 1 applic Topical BID Qty: 1 RF: 2 (DME) lancets 1 EACH misc 1 ea Miscellaneous BID Qty: 200 RF: 4 polyethylene glycol 3350 17 gram/dose powder 17 gm PO DAILY PRN (Reason: constipation) Qty: 255 RF: 2 (DME) Blood Glucose Test strip 1 ea Miscellaneous BID Qty: 200 RF: 4 glipizide 2.5 mg tablet extended release 24hr 5 mg PO BID Qty: 180 RF: 3 metoprolol succinate 25 mg tablet extended release 24 hr 25 mg PO DAILY Qty: 90 RF: 3 simvastatin [Zocor] 10 mg tablet 10 mg PO HS Qty: 90 RF: 4 pantoprazole 40 mg tablet,delayed release (DR/EC) 40 mg PO DAILY@0730 Qty: 90 RF: 3 levothyroxine [Synthroid] 137 mcg tablet 137 mcg PO DAILY Qty: 90 RF: 4 potassium chloride 20 mEq tablet extended release 20 meq PO DAILY Qty: 90 RF: 3 ondansetron [Zofran ODT] 4 mg Tablet,Disintegrating 4 mg PO PRN PRNRF: 0 metformin 500 mg Tablet 500 mg PO BID@0800,1700 Qty: 60 RF: 0 hyoscyamine sulfate [Anaspaz] 0.125 mg tablet,disintegrating 0.125 mg PO BID-QID PRN (Reason: bladder pain) Qty: 30 RF: 0 Discharge Instructions Instructions: Dehydration (ED), Urinary Tract Infection in Women (ED) Additional Instructions: Home to rest today. Small, frequent sips of fluids to maintain hydration. Take Keflex as prescribed. Please follow-up with Diane Earl for recheck in the next 7 to 10 days time. Return to the emergency department for any acute concerns Medical Decision Making 63-year-old female presents from home via EMS. She has rectal carcinoma status post excision with subsequent development of rectovaginal fistula, recently diagnosed with papillary urothelial carcinoma. She was admitted for anemia earlier in the month but has recently been at home and doing well. This morning while standing to make a sandwich became lightheaded with graying of her vision, diaphoresis, but did not have syncope. She denies chest pain. States she had slight fluttering of her chest during the symptoms. Now feeling improved. She arrives with blood pressure 114/74, pulse 87, afebrile and with normal oxygenation. Review of records reveals that her BUN has been rising gradually over the past 2 weeks from 11, to 14, to 18. She has had anemia requiring blood transfusions in the past. Differential diagnosis would include hypovolemia/dehydration, electrolyte abnormalities, recurrent anemia, & must exclude cardiac event/arrhythmia. Patient placed on equipment monitor phototypesetting, IV fluids initiated, referred for EKG, laboratory testing, and chest x-ray. Labs reveal white count of 5, hematocrit 34, platelets 317. BUN is 21, creatinine 0.9, magnesium 1.3. Troponin negative. Urinalysis with positive leuk esterase, micro urinalysis reveals 20-50 white blood cells per high-powered field, rare epithelial cells. Chest x-ray without acute findings. Patient improving with fluids and electrolyte replacement. Given the slow rise of the BUN over weeks time I do feel that she had near syncope due to hypovolemia. The remainder of her work-up is reassuring. She is at risk for ch ronically contaminated urine, but recently has had uninfected UAs, therefore we will treat her for UTI. I reviewed recent culture results that did not have speciation. We will begin with Keflex. Lab Data Lab results reviewed: Yes I reviewed the patient's lab results. Labs: Laboratory Results - last 24 hr 12/07/18 12/07/18 12/07/18 15:30 15:30 16:40 WBC 5.56 RBC 3.51 L Hgb 11.0 L Hct 34.6 L MCV 98.6 H MCH 31.3 MCHC 31.8 L RDW 17.0 H Plt Count 317 MPV 8.6 Immature Gran % 0.9 Neutrophils % 80.5 Lymphocytes % 9.4 Monocytes % 7.2 Eosinophils % 1.6 Basophils % 0.4 Absolute Neutrophils 4.48 Absolute Lymphocytes 0.52 L Absolute Monocytes 0.40 Absolute Eosinophils 0.09 Absolute Basophils 0.02 Sodium 139 Potassium 4.1 Chloride 102 Carbon Dioxide 23.9 Anion Gap 13.1 H BUN 21 H Creatinine 0.99 Estimated GFR/1.73 m2 56.29 Glucose 134 H Calcium 9.2 Magnesium 1.3 L Total Bilirubin 0.3 AST 13 L ALT 22 Alkaline Phosphatase 85 Troponin I < 0.05 Total Protein 7.3 Albumin 3.5 Urine Color Yellow Urine Clarity Clear Urine pH 6.5 Ur Specific Reagan 1.010 Urine Protein Negative Urine Ketones Negative Urine Blood Negative Urine Nitrite Negative Urine Bilirubin Negative Urine Urobilinogen 0.2 Ur Leukocyte Esterase Small H Urine Glucose Negative ECG Data Attestation: I personally reviewed and interpreted this ECG (s) as follows: Interpretation: Normal sinus rhythm with a rate of 82, the QRS is narrow, there is no ST segment elevation, unremarkable intervals. HPI General Mode of arrival: EMS . Date/Time Provider Initiated Documentation: 12/07/18 15:48 . Limitations to Documentation: no limitations . Information obtained by: patient, family and EMS . History of Present Illness described as moderate, and is localized to the head. Patient reports no radiation. Patient started experiencing this hour(s) and it has been now resolved. No relieving factors improve symptom(s), No exacerbating factors reported . Patient notes diaphoresis and malaise; denies chest pain, shortness of breath and syncope. Patient did receive the following treatments prior to arrival, none Related Data Home Medications Medication Instructions Recorded Confirmed acetaminophen 1 tab PO PRN 06/29/12 12/02/18 calcium carbonate 1 tab.chew PO BID 06/29/12 12/02/18 blood-glucose meter #1 ea 10/04/14 12/02/18 Emergen-C 1 packet PO PRN 07/26/15 12/02/18 fluocinolone [Synalar] 1 applic TOPICAL BID #1 script 03/28/16 12/02/18 lancets #200 ea 02/13/17 12/02/18 polyethylene glycol 3350 17 17 gm PO DAILY PRN #255 gm 11/18/17 12/02/18 gram/dose oral powder ondansetron [Zofran ODT] 4 mg PO PRN PRN 12/04/17 12/02/18 metformin 500 mg PO BID@0800,1700 #60 tab 12/25/17 12/02/18 blood sugar diagnostic #200 strip 03/18/18 12/02/18 glipizide 2.5 mg tablet, extended 5 mg PO BID #180 tab 03/18/18 12/02/18 release 24 hr metoprolol succinate 25 mg 25 mg PO DAILY #90 tab 03/18/18 12/02/18 tablet,extended release 24 hr pantoprazole 40 mg tablet,delayed 40 mg PO DAILY@0730 #90 tab 03/18/18 12/02/18 release simvastatin 10 mg tablet 10 mg PO HS #90 tab-cap 03/18/18 12/02/18 levothyroxine 137 mcg tablet 137 mcg PO DAILY #90 tab-cap 07/31/18 12/02/18 potassium chloride 20 mEq 20 meq PO DAILY #90 tab 07/31/18 12/02/18 tablet,extended release sertraline 50 mg tablet 50 mg PO DAILY #90 tab 09/08/18 12/02/18 hyoscyamine sulfate [Anaspaz] 0.125 mg PO BID-QID PRN #30 tab 11/11/18 11/17/18 psyllium husk 3.4 gram/5.4 gram 2 tsp PO .Every Other Day gm 12/01/18 12/02/18 oral powder cephalexin 500 mg PO TID 7 Days #21 cap 12/07/18 Previous Rx's Medication Instructions Recorded lancets #200 ea 02/13/17 polyethylene glycol 3350 17 17 gm PO DAILY PRN #255 gm 11/18/17 gram/dose oral powder metformin 500 mg PO BID@0800,1700 #60 tab 12/25/17 blood sugar diagnostic #200 strip 03/18/18 glipizide 2.5 mg tablet, extended 5 mg PO BID #180 tab 03/18/18 release 24 hr metoprolol succinate 25 mg 25 mg PO DAILY #90 tab 03/18/18 tablet,extended release 24 hr pantoprazole 40 mg tablet,delayed 40 mg PO DAILY@0730 #90 tab 03/18/18 release simvastatin 10 mg tablet 10 mg PO HS #90 tab-cap 03/18/18 levothyroxine 137 mcg tablet 137 mcg PO DAILY #90 tab-cap 07/31/18 potassium chloride 20 mEq 20 meq PO DAILY #90 tab 07/31/18 tablet,extended release sertraline 50 mg tablet 50 mg PO DAILY #90 tab 09/08/18 hyoscyamine sulfate [Anaspaz] 0.125 mg PO BID-QID PRN #30 tab 11/11/18 cephalexin 500 mg PO TID 7 Days #21 cap 12/07/18 Allergies Allergy/AdvReac Type Severity Reaction Status Date / Time copper Allergy Skin Rash Verified 12/02/18 11:31 lidocaine Allergy Itching Verified 12/02/18 11:31 codeine AdvReac tired Verified 12/02/18 11:31 latex AdvReac eczema Verified 12/02/18 11:31 flares up oxycodone AdvReac Verified 12/02/18 11:31 General Stated Complaint: Dizzy/Sync SEMAJ: 3 Review of Systems Review of Systems Narrative: Patient has had no fever, denies chest pain, she has been eating and drinking per routine, has had rectal effluent through her tube, denies any other complaints. No syncope. States that she had transient headache that is now improved. 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) Diabetes Diabetes mellitus (Chronic 07/07/12) DVT prophylaxis (Resolved) Essential hypertension (Chronic 01/02/13) Female infertility Gastroesophageal reflux disease (Chronic) GERD (gastroesophageal reflux disease) Goals of care, counseling/discussion (Chronic) Hematuria (Acute) Hyperlipidemia Hyperlipidemia (Chronic) Hypertension Hypokalemia (Resolved) Hypomagnesemia (Acute) Hypotension determined by examination (Acute) Hypothyroidism H/O Graves Hypothyroidism (Chronic 07/07/12) H/O GRAVES ophthalmopathy Increased BMI (Chronic) Mass of anus (Acute 11/08/17) 11/04/17 -Hyperplastic polyps of descending colon and rectum Invasive keratinizing squamous cell carcinoma -Tumor invading at least rectal mucosa and submucosa [facility] referral initiated by Dr. Wolff Obesity (BMI 30-39.9) Peripheral edema (Resolved) Sepsis (Resolved) Shock circulatory (Resolved) Smoker (Resolved) Quit October 2017 - back to smoking several per day 11/27 SVT (supraventricular tachycardia) (Acute) UTI (urinary tract infection) (Acute) Varicose veins of both lower extremities Varicose veins of lower extremity (Acute) Surgical History Cervical Procedure (~1989) CRYOTHERAPY Endometrial Biopsy (~2002) Ligation of fallopian tube Family History Mother , of cirrhosis at age 68, likely from lifelong obesity Diabetes Essential hypertension Depression Heart disease Hyperlipidemia Neoplasm LIVER Stroke Father , dad aged 40 from AMI Heart disease Myocardial infarction Sister Hyperlipidemia Asthma Grandfather Neoplasm LUNG Grandmother Stroke Son Diabetes Asthma Daughter Anxiety Heart disease BORN WITH ENLARGED HEART Social History Smoking/Tobacco Use Status: Former Tobacco Use Quit status: has quit before Counseling given: counseling >3 minutes Alcohol Intake: never Drug use: Never Substance use type: does not use Household members: none 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 Pleasant, well groomed, i nteractive. HEAD: Normocephalic, atraumatic ENT: Mucous membranes dry, oropharynx unremarkable, External ear exam unremarkable EYES: PERRL, EOMI NECK: Full ROM, no JAYDE, no menigismus CHEST/RESP: Nontender, clear to auscultation bilateral, no wheeze/rhonchi/rales CARDIOVASCULAR: RRR, no murmur, rub cole. 2+ Rad pulse bilateral ABDOMEN: Soft, nontender. +Bowel sounds EXT: Full ROM, no edema, no rash Neuro: Grossly normal neurologic exam, conversant, interactive. Psych: Speech fluent, thoughts congruent, affect normal Course Vital Signs Vital signs: Vital Signs Respiratory Rate 18 12/07/18 15:12 Temperature 36.7 C 12/07/18 15:16 Temperature Source Oral 12/07/18 15:16 Pulse 87 12/07/18 15:16 Pulse 80 12/07/18 15:20 Respiratory Rate 14 12/07/18 15:29 Respiratory Effort 12/07/18 15:29 Respiratory Depth Normal 12/07/18 15:29 Respiratory Pattern Normal 12/07/18 15:29 Blood Pressure 114/74 12/07/18 15:16 Blood Pressure Mean 85 12/07/18 15:15 Blood Pressure Position Supine 12/07/18 15:16 Pulse Oximetry 96 12/07/18 15:20 Oxygen Delivery Method Room Air 12/07/18 15:16 Oxygen Flow Rate 0 12/07/18 15:16 Pain Level 3 12/07/18 15:16
[2018-12-07] MEDS: Normal Saline 1,000 ML 1000 ML IV (15:50)
[2018-12-07 16:05] LABS: Abs Immature Grans 0.05 k/cumm (0.0-0.09); Absolute Basophil Count 0.02 k/cumm (0.0-0.2); Absolute Eosinophil Count 0.09 k/cumm (0.0-0.7); Absolute Lymphocyte Count 0.52 k/cumm (1.2-3.4); Absolute Neutrophil Count 4.48 k/cumm (1.2-6.7); Basophils % 0.4; Eosinophils % 1.6; HCT 34.6 % (36.0-46.0); Immature Grans % 0.9; Lymphocytes % 9.4; Mean Corp. HGB Concentration 31.8 g/dL (32.0-36.0); Mean Corpuscular Hemoglobin 31.3 pg (27.0-33.0); Mean Corpuscular Volume 98.6 fL (80-95); Mean Platelet Volume 8.6 fL (8.0-11.0); Monocytes % 7.2; Neutrophils % 80.5; Platelet Count 317 x1000/uL (130-400); RBC 3.51 m/cumm (4.00-5.20); White Blood Cell Count 5.56 k/cumm (4.4-10.8)
[2018-12-07 16:22] LABS: ALT 22 U/L (14-59); AST 13 U/L (15-37); Albumin 3.5 g/dL (3.4-5.0); Alkaline Phosphatase 85 U/L (46-116); Anion Gap 13.1 mmol/L (3-11); BUN 21 mg/dL (7-18); Bilirubin, Total 0.3 mg/dL (0.2-1.0); CO2 23.9 mmol/L (21.0-32.0); CREATININE 0.99 mg/dL (0.55-1.02); Calcium 9.2 mg/dL (8.5-10.1); Chloride 102 mmol/L (98-107); Estimated GFR 56.29 (mL/min/1.73m2); Glucose 134 mg/dL (70-100); Magnesium 1.3 mg/dL (1.8-2.4); Potassium 4.1 mmol/L (3.5-5.1); Sodium 139 mmol/L (136-145); Total Protein 7.3 g/dL (6.4-8.2)
--- NOTE | 2018-12-07 16:22 | DI.RAD_ITS ---
EXAM: XR CHEST 2V PA LATERAL CLINICAL HISTORY: near syncope/lightheaded. TECHNIQUE: 2D digital imaging was performed. COMPARISON: XR PORTABLE CHEST AP from 01/31/2018 FINDINGS: LUNGS: Clear. No pleural effusion or pneumothorax is identified. HEART: Normal. MEDIASTINUM: Normal. OTHER FINDINGS:Normal. Bones: Age appropriate degenerative changes are seen in the spine. IMPRESSION: No acute pulmonary findings.
[2018-12-07 16:23] LABS: Troponin I < 0.05 ng/mL (0.00-0.06)
--- NOTE | 2018-12-07 16:37 | DI.VRAD_ITS ---
PROCEDURE INFORMATION: Exam: XR Chest, 2 Views Exam date and time: 12/07/2018 3:49 PM Clinical history: 63 years old, female; Other: Syncope, lightheaded TECHNIQUE: Imaging protocol: XR of the chest Views: 2 views. COMPARISON: SC XR PORTABLE CHEST AP 01/31/2018 3:38 PM FINDINGS: Lungs: Unremarkable. No consolidation. Pleural space: Unremarkable. No pleural effusion. No pneumothorax. Heart/Mediastinum: Unremarkable. No cardiomegaly. Bones/joints: Degenerative changes in the spine. IMPRESSION: No acute finding. Dictated and Authenticated by: Bill Ramirez MD. Ordering:SCARLETT Ashley MD
[2018-12-07] MEDS: MAGNESIUM SULFATE 2 GM/50 ML BAG IVPB (16:38)
[2018-12-07 16:51] LABS: Bilirubin Negative (Negative); Blood Negative (Negative); Clarity Clear (Clear); Glucose Negative (Negative); Ketones Negative (Negative); Leukocyte Esterase Small (Negative); Nitrite Negative (Negative); Urobilinogen 0.2 EU/dL (Up TO 0.2); pH 6.5 (5-8)
[2018-12-07 17:03] LABS: Bacteria Moderate HPF (Negative); C & S Indicated? Yes; Casts Negative LPF (Negative); Crystals Negative HPF (Negative); Epithelial Cells Rare HPF (Negative); Mucus Negative (Negative); RBC 0-2 (0-2); WBC 20-50 HPF (0-5)
[2018-12-07] MEDS: Cephalexin 500 MG CAP PO (17:46)
== END 2018-12-07 18:35 | disposition home or self-care (01) ==
PROVIDERS: Emergency Provider Emergency Medicine
DX: E86.0 Dehydration (principal); N39.0 Urinary tract infection, site not specified; E11.9 Type 2 diabetes mellitus without complications; I10 Essential (primary) hypertension; Z79.84 Long term (current) use of oral hypoglycemic drugs
CPT/HCPCS: 36415; 36416; 80053; 82962; 93005; 96361; 96365; 96366; 99285; 71046; 81003; 81015; 83735; 84484; 85025; 87086; 93010; 99284

== ENCOUNTER 2019-01-16 13:18 | Outpatient (CLI) | payer MEDICARE, OTHER, SELFPAY ==
[2019-01-16 13:49] LABS: Abs Immature Grans 0.02 k/cumm (0.0-0.09); Absolute Basophil Count 0.01 k/cumm (0.0-0.2); Absolute Lymphocyte Count 0.61 k/cumm (1.2-3.4); Absolute Monocyte Count 0.45 k/cumm (0.11-0.7); Absolute Neutrophil Count 2.71 k/cumm (1.2-6.7); Basophils % 0.3; Eosinophils % 2.6; HCT 36.2 % (36.0-46.0); HGB 11.4 g/dL (12.0-15.5); Immature Grans % 0.5; Lymphocytes % 15.6; Mean Corp. HGB Concentration 31.5 g/dL (32.0-36.0); Mean Corpuscular Hemoglobin 30.7 pg (27.0-33.0); Mean Corpuscular Volume 97.6 fL (80-95); Mean Platelet Volume 8.3 fL (8.0-11.0); Monocytes % 11.5; Neutrophils % 69.5; Platelet Count 285 x1000/uL (130-400); RBC 3.71 m/cumm (4.00-5.20); RBC Distribution Width 16.8 % (11.7-14.6)
[2019-01-16 13:58] LABS: ALT 41 U/L (14-59); AST 18 U/L (15-37); Albumin 3.5 g/dL (3.4-5.0); Alkaline Phosphatase 115 U/L (46-116); Anion Gap 8.8 mmol/L (3-11); BUN 20 mg/dL (7-18); Bilirubin, Total 0.2 mg/dL (0.2-1.0); CO2 28.2 mmol/L (21.0-32.0); CREATININE 0.82 mg/dL (0.55-1.02); Calcium 9.1 mg/dL (8.5-10.1); Chloride 102 mmol/L (98-107); Glucose 105 mg/dL (70-100); Potassium 4.5 mmol/L (3.5-5.1); Sodium 139 mmol/L (136-145); Total Protein 7.5 g/dL (6.4-8.2)
== END 2019-01-16 13:38 ==
PROVIDERS: Visit Provider Internal Medicine Hematology & Oncology
DX: C21.0 Malignant neoplasm of anus, unspecified (principal)
CPT/HCPCS: 36415; 80053; 85025

== ENCOUNTER → 2019-01-29 14:19 | Outpatient (BNVA) | payer MEDICARE, OTHER, SELFPAY | PROVIDERS: Visit Provider Urology | DX: C67.9 Malignant neoplasm of bladder, unspecified (principal) | CPT/HCPCS: 51720; 99212; J9031 ==

== ENCOUNTER → 2019-02-09 08:08 | Outpatient (BNVA) | payer MEDICARE, OTHER, SELFPAY | PROVIDERS: Visit Provider Urology | DX: C67.9 Malignant neoplasm of bladder, unspecified (principal); Z85.048 Personal history of other malignant neoplasm of rectum, rectosigmoid junction, and anus; R31.9 Hematuria, unspecified | CPT/HCPCS: 51720; 81003; 99212; J9031 ==

== ENCOUNTER → 2019-02-19 10:12 | Outpatient (BNVA) | payer MEDICARE, OTHER, SELFPAY | PROVIDERS: Visit Provider Urology | DX: C67.9 Malignant neoplasm of bladder, unspecified (principal) | CPT/HCPCS: 51720; 81003; 99212; J9031 ==

== ENCOUNTER → 2019-02-27 12:15 | Outpatient (BNVA) | payer MEDICARE, OTHER, SELFPAY | PROVIDERS: Visit Provider Urology | DX: C67.9 Malignant neoplasm of bladder, unspecified (principal); R31.9 Hematuria, unspecified; N39.0 Urinary tract infection, site not specified | CPT/HCPCS: 81003; 99212; 99213 ==

== ENCOUNTER 2019-02-27 13:41 | Outpatient (REF) | payer MEDICARE, OTHER, SELFPAY | END 2019-02-27 14:01 | LOC: LBN 13:41 | PROVIDERS: Visit Provider Urology | DX: R31.9 Hematuria, unspecified (principal) | CPT/HCPCS: 87086 ==

== ENCOUNTER → 2019-03-06 09:19 | Outpatient (BNVA) | payer MEDICARE, OTHER, SELFPAY | PROVIDERS: Visit Provider Urology | DX: C67.9 Malignant neoplasm of bladder, unspecified (principal) | CPT/HCPCS: 51720; 99212; J9031 ==

== ENCOUNTER → 2019-03-16 08:12 | Outpatient (BNVA) | payer MEDICARE, OTHER, SELFPAY | PROVIDERS: Visit Provider Urology | DX: C67.9 Malignant neoplasm of bladder, unspecified (principal) | CPT/HCPCS: 51720; 99212; J9031 ==

== ENCOUNTER → 2019-03-24 13:55 | Outpatient (BNVA) | payer MEDICARE, OTHER, SELFPAY | PROVIDERS: Visit Provider Urology | DX: C67.9 Malignant neoplasm of bladder, unspecified (principal) | CPT/HCPCS: 51720; 81003; 99213; J9031 ==

== ENCOUNTER 2019-05-15 00:13 | Outpatient (CLI) | payer MEDICARE, OTHER, SELFPAY ==
[2019-05-15 08:29] LABS: Abs Immature Grans 0.03 k/cumm (0.0-0.09); Absolute Basophil Count 0.02 k/cumm (0.0-0.2); Absolute Eosinophil Count 0.15 k/cumm (0.0-0.7); Absolute Lymphocyte Count 0.53 k/cumm (1.2-3.4); Absolute Monocyte Count 0.31 k/cumm (0.11-0.7); Basophils % 0.6; Eosinophils % 4.4; HCT 33.5 % (36.0-46.0); HGB 10.4 g/dL (12.0-15.5); Immature Grans % 0.9 %; Lymphocytes % 15.4; Mean Corpuscular Hemoglobin 28.7 pg (27.0-33.0); Mean Corpuscular Volume 92.3 fL (80-95); Mean Platelet Volume 7.6 fL (8.0-11.0); Neutrophils % 69.7; Platelet Count 287 x1000/uL (130-400); RBC 3.63 m/cumm (4.00-5.20); RBC Distribution Width 17.9 % (11.7-14.6); White Blood Cell Count 3.44 k/cumm (4.4-10.8)
[2019-05-15 08:47] LABS: ALT 22 U/L (14-59); AST 13 U/L (15-37); Albumin 3.5 g/dL (3.4-5.0); Alkaline Phosphatase 108 U/L (46-116); Anion Gap 9.3 mmol/L (3-11); BUN 16 mg/dL (7-18); Bilirubin, Total 0.3 mg/dL (0.2-1.0); CO2 26.7 mmol/L (21.0-32.0); CREATININE 0.88 mg/dL (0.55-1.02); Calcium 9.6 mg/dL (8.5-10.1); Chloride 103 mmol/L (98-107); Glucose 137 mg/dL (74-106); Potassium 4.3 mmol/L (3.5-5.1); Sodium 139 mmol/L (136-145); Total Protein 7.3 g/dL (6.4-8.2)
[2019-05-15 09:51] LABS: Calculated LDL 98 mg/dL (<100); Cholesterol 178 mg/dL (<200); HDL Cholesterol 62 mg/dL (40-60); TSH (W/Ref FT4) 0.49 uIU/mL (0.36-3.74); Triglyceride 90 mg/dL (<150)
[2019-05-15 11:10] LABS: Hemoglobin A1C 6.3 % (3.8-5.6)
== END 2019-05-15 00:33 ==
DX: C21.0 Malignant neoplasm of anus, unspecified (principal); E03.9 Hypothyroidism, unspecified; E11.9 Type 2 diabetes mellitus without complications; E78.5 Hyperlipidemia, unspecified; I10 Essential (primary) hypertension; K21.9 Gastro-esophageal reflux disease without esophagitis; R63.8 Other symptoms and signs concerning food and fluid intake; G47.00 Insomnia, unspecified
CPT/HCPCS: 36415; 80053; 80061; 83036; 84443; 85025

== ENCOUNTER → 2019-08-04 10:17 | Outpatient (BNVA) | payer MEDICARE, OTHER, SELFPAY | PROVIDERS: Visit Provider Urology | DX: C67.9 Malignant neoplasm of bladder, unspecified (principal); I10 Essential (primary) hypertension | CPT/HCPCS: 52000; 99213 ==

== ENCOUNTER 2019-08-04 12:23 | Outpatient (REF) | payer MEDICARE, OTHER, SELFPAY ==
--- NOTE | 2019-08-04 10:45 | PAPNONF_PTH ---
PATIENT: Sherry Werner LOC: [facility] U#:[id number] AGE/SX: 63/F ROOM: RE08/04/[address]: Chris Ruiz MD : [id number] BED: DIS: 08/04/2019 SPEC #: [id number] RECD: 08/04/19 13:03 STATUS: PAPI REDonal #: [id number] DEON: 08/04/19 10:[address]: Chris Ruiz DEPT: [facility] Cytology RECD BY: Daphne Diaz ENTERED: 08/04/19 13:03 SP TYPE: KEKE WONG DR: Diane Leblanc APRN Tissues: 1 - BODY FLUID CYTO(SPUTUM/URINE)[facility] Procedures: BODY FLUID CYTO(URINE/SPUTUM) Comments: [id number] (TOTAL VOLUME = 70 ml's) (35 ml's URINE & 35 ml's CYTOLYT ADDED IN 2 CONTAINERS)
== END 2019-08-04 12:43 ==
LOC: LBN 12:23
PROVIDERS: Visit Provider Urology
DX: C67.9 Malignant neoplasm of bladder, unspecified (principal); R82.89 Other abnormal findings on cytological and histological examination of urine
CPT/HCPCS: 88104

== ENCOUNTER 2019-08-13 03:29 | Outpatient (CLI) | payer MEDICARE, OTHER, SELFPAY ==
[2019-08-13 13:31] LABS: Abs Immature Grans 0.02 k/cumm (0.0-0.09); Absolute Basophil Count 0.01 k/cumm (0.0-0.2); Absolute Eosinophil Count 0.09 k/cumm (0.0-0.7); Absolute Lymphocyte Count 0.72 k/cumm (1.2-3.4); Absolute Monocyte Count 0.49 k/cumm (0.11-0.7); Absolute Neutrophil Count 2.92 k/cumm (1.2-6.7); Basophils % 0.2; Eosinophils % 2.1; HCT 33.5 % (36.0-46.0); HGB 10.3 g/dL (12.0-15.5); Immature Grans % 0.5 %; Lymphocytes % 16.9; Mean Corp. HGB Concentration 30.7 g/dL (32.0-36.0); Mean Corpuscular Hemoglobin 27.6 pg (27.0-33.0); Mean Corpuscular Volume 89.8 fL (80-95); Monocytes % 11.5; Neutrophils % 68.8; Platelet Count 316 x1000/uL (130-400); RBC 3.73 m/cumm (4.00-5.20); RBC Distribution Width 18.1 % (11.7-14.6); White Blood Cell Count 4.25 k/cumm (4.4-10.8)
== END 2019-08-13 03:49 ==
PROVIDERS: Nurse Practitioner Family
DX: Z01.818 Encounter for other preprocedural examination (principal); I10 Essential (primary) hypertension
CPT/HCPCS: 36415; 85014; 85018; 85025

== ENCOUNTER 2019-08-21 10:42 | Day surgery (SDC) | payer MEDICARE, OTHER, SELFPAY ==
[2019-08-21 11:06] VITALS: BP 121/67; PULSE 87; RESP 20; TEMP 36.6; O2SAT 99
[2019-08-21] MEDS: Tetracaine 0.5% 4 ML BTL OD (12:04)
[2019-08-21] MEDS: Lidocaine 2% Jelly 6 ML SYR (12:05)
[2019-08-21] MEDS: Povidone-Iodine Ophth 30 ML BTL (12:05)
[2019-08-21] MEDS: Balanced Salt Soln.-PLUS 500 ML BAG (12:12)
[2019-08-21] MEDS: Trypan Blue 0.06% 0.5 ML SYR (12:12)
[2019-08-21] MEDS: Lidocaine 1% Pres-Free 5 ML VIAL (12:14)
[2019-08-21] MEDS: Moxifloxacin-PF 1 MG/ML VIAL (12:41)
--- NOTE | 2019-08-21 12:45 | W.PM.DSUDISC ---
Discharge Plan Disposition Patient Disposition: HOME Condition: Good Discharge Details Attending Provider: Brcye Pan Primary Care Provider: Diane Leblanc Home Meds and New Rx's Prescriptions: No Action Metamucil 3.4 gram/5.4 gram powder 2 tsp PO .Every Other Day RF: 0 (DME) lancets 28 gauge misc 1 ea Miscellaneous BID Qty: 300 RF: 4 (DME) blood sugar diagnostic [Blood Glucose Test] Strip 1 ea Miscellaneous BID Qty: 300 RF: 4 sertraline 50 mg tablet 50 mg PO DAILY Qty: 90 RF: 3 pantoprazole 40 mg tablet,delayed release (DR/EC) 40 mg PO DAILY@0730 Qty: 90 RF: 3 calcium carbonate 500 MG tablet 1 tab.chew PO BID RF: 0 (DME) blood-glucose meter 1 EACH misc 1 ea Miscellaneous DAILY Qty: 1 RF: 0 Emergen-C 1,000 MG powder effervescent in packet 1 packet PO DAILY RF: 0 fluocinolone [Synalar] 120 GM ointment 1 applic Topical BID Qty: 1 RF: 2 polyethylene glycol 3350 17 gram/dose powder 17 gm PO DAILY PRN (Reason: constipation) Qty: 255 RF: 2 levothyroxine [Synthroid] 137 mcg tablet 137 mcg PO DAILY Qty: 90 RF: 4 metoprolol succinate 25 mg tablet extended release 24 hr 25 mg PO DAILY Qty: 90 RF: 3 glipizide 2.5 mg tablet extended release 24hr 5 mg PO BID Qty: 180 RF: 3 acetaminophen 500 mg tablet 500 mg PO BID RF: 0 simvastatin [Zocor] 10 mg tablet 10 mg PO HS Qty: 90 RF: 4 potassium chloride 20 mEq tablet extended release 20 meq PO DAILY Qty: 90 RF: 3 metformin 500 mg tablet 500 mg PO BID@0800,1700 Qty: 60 RF: 0 ondansetron [Zofran ODT] 4 mg Tablet,Disintegrating 4 mg PO PRN PRNRF: 0 hyoscyamine sulfate [Anaspaz] 0.125 mg tablet,disintegrating 0.125 mg PO BID-QID PRN (Reason: bladder pain) Qty: 30 RF: 0 Discharge Instructions Stand Alone Forms: Post-op Topical Cataract, Press Ganey (DSU) DS: Diagnosis Discharge Diagnosis (1) Posterior subcapsular age-related cataract, right eye: Status: Resolved (2) Nuclear sclerotic cataract of right eye: Status: Resolved (3) Cortical cataract of right eye: Status: Resolved
--- NOTE | 2019-08-21 12:47 | W.PM.OP ---
Date of service: 08/21/19 Time of Service: 12:47 Operative Note Operative Note DATE OF PROCEDURE: 08/21/19 PRE-OP DIAGNOSIS: Dense nuclear/posterior subcapsular/cortical cataract, right eye POST-OP DIAGNOSIS: same PROCEDURE: Cataract extraction using phacoemulsification with intraocular lens implantation, right eye, using capsular staining with Vision Blue SURGEON: Bryce Pan ANESTHESIA: MAC (with local sub-tenon's anesthetic injection) PATHOLOGY: none sent COMPLICATIONS: None Patient was transported to: same day Patient's condition: stable Implants: Rom[employer] / [employer] Tecnis [id number] Indications: Progressive visual loss due to cataract, right eye Procedure Description: CATARACT SURGERY OPERATIVE REPORT PREOPERATIVE DIAGNOSIS: 1. Dense nuclear/cortical/posterior subcapsular cataract, right eye 2. Poor red reflex secondary to #1 POSTOPERATIVE DIAGNOSIS: Same OPERATION: 1. Cataract extraction using phacoemulsification with posterior chamber intraocular lens implant, right eye. 2. Capsular staining with Vision Blue IOL: IOL Legal Recovery Specialist/Model: [employer] Rom[employer] / ANDREA Tecnis [id number] IOL Power: + 22.0 diopters IOL Serial Number: [id number] Optic Diameter: 6.0mm Haptic/Overall Diameter: 13.0mm PHACO INFO: Luís [employer] ITurion Vision System with OZil and Active Fluidics Cumulative Dispersed Energy (CDE): 46.44 seconds SURGEON: Bryce Pan MD, KAYE ANESTHESIA: Monitored Anesthesia Care (MAC), with local sub-tenon's anesthetic infiltration COMPLICATIONS: None SPECIMENS: None INDICATIONS FOR PROCEDURE: The patient is a 63-year-old lady who was noted to have a dense nuclear/cortical/posterior subcapsular cataract in the right eye with very poor visual acuity. The option of cataract surgery was offered to the patient and she wished to proceed. PROCEDURE: The correct surgical eye was identified and marked as the right eye and the pupil was dilated in the preoperative area using mydriatics and cycloplegics. The dilated pupil size was 6.0 mm. Oral sedation was administered in the form of an Imprimis MKO Melt (midazolam 3mg/ketamine 25mg/ondansetron 2mg). The patient was brought to the operating room where cardiopulmonary monitoring was instituted and surgical time-out was performed, confirming the correct operative eye and IOL power. Topical anesthesia was administered and ophthalmic povidone-iodine 5% was instilled into the conjunctival fornices. Lidocaine gel was applied to the cornea and the fariba-ocular area was prepped with Betadine 10% solution and draped in the usual sterile fashion for intraocular surgery, including an aperture drape. A Tegaderm transparent film dressing was cut in half and used to cover the lashes and lid margins. Care was taken to sequester the lashes and lid margins under the Tegaderm dressing. A lid speculum was placed between the lids of the operative eye and the Sunil-Vanessa operating microscope was maneuvered into position. Rajesh scissors were then used to make a conjunctival buttonhole approximately 6mm posterior to the limbus in the inferonasal quadrant. Blunt dissection was carried out to expose bare sclera, and a blunt-tipped sub-tenon?s anesthesia cannula was introduced and passed posteriorly along the globe where non-preserved plain lidocaine was injected into posterior sub-Tenon?s space. A sideport knife was used to make a paracentesis port inferotemporally. Intraocular phenylephrine/lidocaine was injected into the anterior chamber. Air was injected into the anterior chamber, followed by Vision Blue, which was painted over the anterior capsule and then irrigated out with BSS. The anterior chamber was filled with Healon Pro. A 2.4mm keratome knife was used to create a half-thickness groove at the limbus and then to construct a three-plane near-clear corneal tunnel extending 2.0mm into clear cornea at the 10:00 position. A flap was raised on the anterior capsule and capsulorhexis forceps were used to complete a continuous curvilinear capsulorhexis of 4.8 mm. Capsule was noted to be extremely thin with moderately loose zonules. Balanced salt solution was then used to perform cortical cleaving hydrodissection and nuclear hydrodelineation until the lens could be freely rotated within the capsular bag. The lens nucleus was then disassembled and removed within the capsular bag and iris plane using phacoemulsification. Residual cortical material was removed using the I/A handpiece. The posterior capsule was carefully polished to remove as much residual lens epithelial cells as safely possible. The capsular bag was then inflated and the anterior chamber deepened with viscoelastic. The lens implant described above was inserted into the capsular bag using the ANDREA [place] Injector. A Kuglen hook was used to dial the IOL into position. Residual viscoelastic was then removed first from posterior to the IOL, then from the anterior chamber using the I/A handpiece. The lens implant was noted to center nicely within the capsular bag. The incisions were stromally hydrated, and the anterior chamber was reformed using BSS. Then 0.5cc of moxifloxacin 1.0mg/ml were injected into the capsular bag and anterior chamber. The incisions were checked with a Weck spear and found to be secure. Several drops of ophthalmic povidone-iodine 5% were then applied to the eye followed by two drops of Imprimis combination prednisolone/moxifloxacin/nepafenac solution. The drapes were removed and a clear plastic protective eye shield was placed over the eye. The patient was then returned to Same Day Surgery in stable condition.
[2019-08-21 13:23] VITALS: BP 106/55; PULSE 86; RESP 18; TEMP 36.4; O2SAT 98
== END 2019-08-21 13:30 | disposition home or self-care (01) ==
PROVIDERS: Visit Provider Ophthalmology
PROC: (CPT 66982; principal; 2019-08-21 12:45)
DX: H25.041 Posterior subcapsular polar age-related cataract, right eye (principal); H25.11 Age-related nuclear cataract, right eye; H25.011 Cortical age-related cataract, right eye; H35.89 Other specified retinal disorders; E11.9 Type 2 diabetes mellitus without complications; I10 Essential (primary) hypertension
CPT/HCPCS: 66982; V2632

== ENCOUNTER 2019-08-31 00:47 | Outpatient (CLI) | payer MEDICARE, OTHER, SELFPAY ==
--- NOTE | 2019-08-31 | DI.CT_ITS ---
EXAM: CT CHEST/ABD/PEL W CLINICAL HISTORY: ANAL CANCER C21.0 EVAL FOR METASTATIC DISEASE TECHNIQUE: Imaging Protocol: Axial computed tomography images with coronal and sagittal reformatted images were created and reviewed CONTRAST MATERIAL: Intravenous: Omnipaque 350 Contrast volume:100 mL Oral: Yes FINDINGS: CHEST: Tracheobronchial tree: Patent where visualized. Mediastinum and Davina: No dominant adenopathy or fluid collection. Pulmonary parenchyma: No consolidation or dominant measurable mass. No architectural distortion. Pleura: No effusion or pneumothorax. Heart: The heart is not dilated. Marked coronary artery calcification is seen. No pericardial effusi on. Aorta: Thoracic aorta non-dilated. Atherosclerosis. Lymph nodes: Within normal limits. Bones:Degenerative changes are seen in the spine. No suspicious lytic or sclerotic lesions. ABDOMEN: Liver: Normal density. No measurable mass. Portal, Superior Mesenteric, and Splenic Veins: Unremarkable. Gallbladder and Biliary Tract: No radiodense calculus or dilation. Pancreas: Normal density, no abnormal calcifications or inflammatory process. Spleen: Normal. Adrenals: No masses seen. Kidneys: Marked atrophy of the right kidney. No radiodense stones or obstructive uropathy. No masses seen. Abdominal Aorta: Abdominal portion non-dilated. Atherosclerosis. Bowel: No obstruction or bowel wall thickening. Appendix is unremarkable. Colonic diverticulosis but no evidence of acute diverticulitis. There is soft tissue thickening seen in the region of the anus. This may represent residual/recurrent tumor or postsurgical changes. Peritoneal Cavity: No ascites, collection or mesenteric inflammatory response. Lymph Nodes: Within normal limits. Bones: No lytic or sclerotic lesions are seen in the bones. Degenerative changes are seen in the spi ne. Soft Tissues: Unremarkable. PELVIS: Bladder: Mild diffuse urinary bladder wall thickening. This may be due to underdistention. Inflamma tory or infectious process cannot be excluded. Reproductive Organs: Unremarkable as visualized. Lymph Nodes: Within normal limits. Bones: Please see above. IMPRESSION: 1. No evidence of abdominal, pelvic or thoracic metastatic disease. 2. Thickening of the soft tissues around the anal region. This may be recurrent or residual tumor, i nfectious or inflammatory process, or postsurgical change. Please correlate clinically. 3. Mild diffuse urinary bladder wall thickening, which may be due to underdistention or an infectious or inflammatory process. RADIATION DOSE DELIVERED: 2,176.22mGy.cm Total DLP DATA REPOSITORY: All CT scans at this facility are submitted to the National Radiology Data Registry (NRDR) Dose Index Registry (DIR) with the [employer] (ACR). RADIATION OPTIMIZATION: All CT scans at this facility use at least one of these dose optimization te chniques: automated exposure control; mA and/or kV adjustment per patient size (includes targeted exa ms where dose is matched to clinical indication); or iterative reconstruction.
[2019-08-31 12:03] LABS: Abs Immature Grans 0.03 k/cumm (0.0-0.09); Absolute Basophil Count 0.02 k/cumm (0.0-0.2); Absolute Eosinophil Count 0.12 k/cumm (0.0-0.7); Absolute Lymphocyte Count 0.65 k/cumm (1.2-3.4); Absolute Neutrophil Count 3.26 k/cumm (1.2-6.7); Basophils % 0.4; Eosinophils % 2.7; HCT 31.7 % (36.0-46.0); HGB 9.7 g/dL (12.0-15.5); Immature Grans % 0.7 %; Lymphocytes % 14.5; Mean Corp. HGB Concentration 30.6 g/dL (32.0-36.0); Mean Corpuscular Hemoglobin 27.5 pg (27.0-33.0); Mean Corpuscular Volume 89.8 fL (80-95); Mean Platelet Volume 8.6 fL (8.0-11.0); Monocytes % 8.9; Neutrophils % 72.8; Platelet Count 309 x1000/uL (130-400); RBC 3.53 m/cumm (4.00-5.20); RBC Distribution Width 18.5 % (11.7-14.6); White Blood Cell Count 4.48 k/cumm (4.4-10.8)
[2019-08-31] MEDS: Omnipaque 350 MG/ML 50 ML BTL IJ (12:03)
[2019-08-31] MEDS: Breeza Beverage 473 ML BTL PO ×2 (12:04→12:06)
[2019-08-31 12:22] LABS: ALT 27 U/L (14-59); AST 21 U/L (15-37); Albumin 3.5 g/dL (3.4-5.0); Alkaline Phosphatase 96 U/L (46-116); Anion Gap 8.4 mmol/L (3-11); BUN 17 mg/dL (7-18); Bilirubin, Total 0.3 mg/dL (0.2-1.0); CO2 28.6 mmol/L (21.0-32.0); CREATININE 1.02 mg/dL (0.55-1.02); Calcium 9.2 mg/dL (8.5-10.1); Chloride 103 mmol/L (98-107); Estimated GFR 54.39 (mL/min/1.73m2); Glucose 120 mg/dL (74-106); Potassium 4.2 mmol/L (3.5-5.1); Sodium 140 mmol/L (136-145); Total Protein 7.4 g/dL (6.4-8.2)
[2019-08-31] MEDS: Omnipaque 350 MG/ML 100 ML BTL IV (13:54)
[2019-08-31] MEDS: Normal Saline - Diluent 50 ML VIAL IV (14:04)
== END 2019-08-31 01:07 ==
PROVIDERS: Visit Provider Internal Medicine Hematology & Oncology
DX: C21.0 Malignant neoplasm of anus, unspecified (principal); Z12.89 Encounter for screening for malignant neoplasm of other sites; K57.30 Diverticulosis of large intestine without perforation or abscess without bleeding; N32.89 Other specified disorders of bladder
CPT/HCPCS: 74177; 80053; 71260; 85025; J3490; Q9967

== ENCOUNTER 2019-09-04 09:13 | Day surgery (SDC) | payer MEDICARE, OTHER, SELFPAY ==
[2019-09-04 09:16] VITALS: BP 106/64; PULSE 91; RESP 20; TEMP 36.5; O2SAT 97
--- NOTE | 2019-09-04 09:45 | W.PM.DSUDISC ---
Discharge Plan Disposition Patient Disposition: HOME Condition: Good Discharge Details Attending Provider: Bryce Pan Primary Care Provider: Diane Leblanc Home Meds and New Rx's Prescriptions: No Action Metamucil 3.4 gram/5.4 gram powder 2 tsp PO .Every Other Day RF: 0 (DME) lancets 28 gauge misc 1 ea Miscellaneous BID Qty: 300 RF: 4 (DME) blood sugar diagnostic [Blood Glucose Test] Strip 1 ea Miscellaneous BID Qty: 300 RF: 4 sertraline 50 mg tablet 50 mg PO DAILY Qty: 90 RF: 3 pantoprazole 40 mg tablet,delayed release (DR/EC) 40 mg PO DAILY@0730 Qty: 90 RF: 3 calcium carbonate 500 MG tablet 1 tab.chew PO BID RF: 0 (DME) blood-glucose meter 1 EACH misc 1 ea Miscellaneous DAILY Qty: 1 RF: 0 Emergen-C 1,000 MG powder effervescent in packet 1 packet PO DAILY RF: 0 fluocinolone [Synalar] 120 GM ointment 1 applic Topical BID Qty: 1 RF: 2 polyethylene glycol 3350 17 gram/dose powder 17 gm PO DAILY PRN (Reason: constipation) Qty: 255 RF: 2 levothyroxine [Synthroid] 137 mcg tablet 137 mcg PO DAILY Qty: 90 RF: 4 metoprolol succinate 25 mg tablet extended release 24 hr 25 mg PO DAILY Qty: 90 RF: 3 glipizide 2.5 mg tablet extended release 24hr 5 mg PO BID Qty: 180 RF: 3 acetaminophen 500 mg tablet 500 mg PO BID RF: 0 simvastatin [Zocor] 10 mg tablet 10 mg PO HS Qty: 90 RF: 4 potassium chloride 20 mEq tablet extended release 20 meq PO DAILY Qty: 90 RF: 3 metformin 500 mg tablet 500 mg PO BID@0800,1700 Qty: 60 RF: 0 ondansetron [Zofran ODT] 4 mg Tablet,Disintegrating 4 mg PO PRN PRNRF: 0 hyoscyamine sulfate [Anaspaz] 0.125 mg tablet,disintegrating 0.125 mg PO BID-QID PRN (Reason: bladder pain) Qty: 30 RF: 0 Discharge Instructions Stand Alone Forms: Post-op Topical Cataract, Press Ganey (DSU) Discharge Orders Discharge Orders: Discharge Order (Routine); Ordered 09/04/19 Ordered By: Bryce Pan DS: Diagnosis Discharge Diagnosis (1) Posterior subcapsular age-related cataract of left eye: Status: Resolved (2) Cortical cataract of left eye: Status: Resolved (3) Nuclear sclerotic cataract of left eye: Status: Resolved
[2019-09-04] MEDS: Tetracaine 0.5% 4 ML BTL OS (10:37)
[2019-09-04] MEDS: Balanced Salt Soln.-PLUS 500 ML BAG (10:42)
[2019-09-04] MEDS: Lidocaine 1% Pres-Free 5 ML VIAL (10:43)
[2019-09-04] MEDS: Povidone-Iodine Ophth 30 ML BTL (10:44)
[2019-09-04] MEDS: Lidocaine 2% Jelly 6 ML SYR (10:44)
[2019-09-04] MEDS: Moxifloxacin-PF 1 MG/ML VIAL (10:50)
--- NOTE | 2019-09-04 11:08 | W.PM.OP ---
Date of service: 09/04/19 Time of Service: 11:08 Operative Note Operative Note DATE OF PROCEDURE: 09/04/19 PRE-OP DIAGNOSIS: Nuclear/Cortical/Posterior subcapsular cataract, left eye POST-OP DIAGNOSIS: same PROCEDURE: Cataract extraction using phacoemulsification with intraocular lens implant, left eye SURGEON: Bryce Pan ANESTHESIA: MAC and local (sub-tenon's anesthetic infiltration) PATHOLOGY: none sent COMPLICATIONS: None Patient was transported to: same day Patient's condition: stable Implants: Romario and Romario Vision / [employer] Tecnis [id number] Indications: Progressive decreased vision due to cataract, left eye Procedure Description: CATARACT SURGERY OPERATIVE REPORT PREOPERATIVE DIAGNOSIS: Nuclear/cortical/posterior subcapsular cataract, left eye POSTOPERATIVE DIAGNOSIS: Same OPERATION: Cataract extraction using phacoemulsification with posterior chamber intraocular lens implant, left eye. 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[employer] Vision / ANDREA Tecnis ZCB00 IOL Power: + 22.0 diopters IOL Serial Number: [id number] Optic Diameter: 6.0mm Haptic/Overall Diameter: 13.0mm PHACO INFO: Luís [employer] Vision System with OZil and Active Fluidics Cumulative Dispersed Energy (CDE): 10.02 seconds SURGEON: Bryce Pan MD, KAYE ANESTHESIA: Monitored Anesthesia Care (MAC), with local sub-tenon's anesthetic infiltration COMPLICATIONS: None SPECIMENS: None INDICATIONS FOR PROCEDURE: The patient is a 63-year-old lady with history of diminished visual acuity in both eyes secondary to the development of bilateral nuclear cortical and posterior subcapsular cataract. She has already undergone cataract surgery of the right eye and is doing well postoperatively. She now presents for cataract surgery of the left eye. PROCEDURE: The correct surgical eye was identified and marked as the left eye and the pupil was dilated in the preoperative area using mydriatics and cycloplegics. The dilated pupil size was 7.0 mm. Oral sedation was administered in the form of an Imprimis MKO Melt (midazolam 3mg/ketamine 25mg/ondansetron 2mg). The patient was brought to the operating room where cardiopulmonary monitoring was instituted and surgical time-out was performed, confirming the correct operative eye and IOL power. Topical anesthesia was administered and ophthalmic povidone-iodine 5% was instilled into the conjunctival fornices. Lidocaine gel was applied to the cornea and the fariba-ocular area was prepped with Betadine 10% solution and draped in the usual sterile fashion for intraocular surgery, including an aperture drape. A Tegaderm transparent film dressing was cut in half and used to cover the lashes and lid margins. Care was taken to sequester the lashes and lid margins under the Tegaderm dressing. A lid speculum was placed between the lids of the operative eye and the Sunil-Vanessa operating microscope was maneuvered into position. Rajesh scissors were then used to make a conjunctival buttonhole approximately 6mm posterior to the limbus in the inferonasal quadrant. Blunt dissection was carried out to expose bare sclera, and a blunt-tipped sub-tenon?s anesthesia cannula was introduced and passed posteriorly along the globe where non-preserved plain lidocaine was injected into posterior sub-Tenon?s space. A sideport knife was used to make a paracentesis port superior/superiortemporally. Intraocular phenylephrine/lidocaine was injected into the anterior chamber. The anterior chamber was then filled with Healon GV. A 2.4mm keratome knife was used to create a half-thickness groove at the limbus and then to construct a three-plane near-clear corneal tunnel extending 2.0mm into clear cornea in the temporal position. . A flap was raised on the anterior capsule and capsulorhexis forceps were used to complete a continuous curvilinear capsulorhexis of 5.0 mm. Balanced salt solution was then used to perform cortical cleaving hydrodissection and nuclear hydrodelineation until the lens could be freely rotated within the capsular bag. The lens nucleus was then disassembled and removed within the capsular bag and iris plane using phacoemulsification. Residual cortical material was removed using the 45-degree angled silicone I/A tip with 0.3mm port. The posterior capsule was carefully polished to remove as much residual lens epithelial cells as safely possible. The capsular bag was then inflated and the anterior chamber deepened with viscoelastic. The lens implant described above was inserted into the capsular bag using the ANDREA [place] Injector. A Kuglen hook was used to dial the IOL into position. Residual viscoelastic was then removed first from posterior to the IOL, then from the anterior chamber using the I/A handpiece. The lens implant was noted to center nicely within the capsular bag. The incisions were stromally hydrated, and the anterior chamber was reformed using BSS. Then 0.5cc of moxifloxacin 1.0mg/ml were injected into the capsular bag and anterior chamber. The incisions were checked with a Weck spear and found to be secure. Several drops of ophthalmic povidone-iodine 5% were then applied to the eye followed by two drops of Imprimis combination prednisolone/moxifloxacin/nepafenac solution. The drapes were removed and a clear plastic protective eye shield was placed over the eye. The patient was then returned to Same Day Surgery in stable condition.
== END 2019-09-04 11:35 | disposition home or self-care (01) ==
PROVIDERS: Visit Provider Ophthalmology
PROC: (CPT 66984; principal; 2019-09-04 11:30)
DX: H25.042 Posterior subcapsular polar age-related cataract, left eye (principal); H25.12 Age-related nuclear cataract, left eye; H25.012 Cortical age-related cataract, left eye; Z98.41 Cataract extraction status, right eye; Z96.1 Presence of intraocular lens
CPT/HCPCS: 66984; V2632

== ENCOUNTER 2019-09-25 15:04 | Outpatient (CLI) | payer MEDICARE, OTHER, SELFPAY ==
[2019-09-25 15:42] LABS: Abs Immature Grans 0.02 k/cumm (0.0-0.09); Absolute Basophil Count 0.02 k/cumm (0.0-0.2); Absolute Eosinophil Count 0.14 k/cumm (0.0-0.7); Absolute Lymphocyte Count 0.73 k/cumm (1.2-3.4); Absolute Monocyte Count 0.49 k/cumm (0.11-0.7); Absolute Neutrophil Count 3.41 k/cumm (1.2-6.7); Basophils % 0.4; Eosinophils % 2.9; HCT 32.5 % (36.0-46.0); HGB 9.8 g/dL (12.0-15.5); Immature Grans % 0.4 %; Lymphocytes % 15.2; Mean Corp. HGB Concentration 30.2 g/dL (32.0-36.0); Mean Corpuscular Hemoglobin 26.8 pg (27.0-33.0); Mean Platelet Volume 8.3 fL (8.0-11.0); Monocytes % 10.2; Neutrophils % 70.9; Platelet Count 302 x1000/uL (130-400); RBC 3.65 m/cumm (4.00-5.20); RBC Distribution Width 18.7 % (11.7-14.6); Reticulocyte 2.2 % (0.5-2.4); White Blood Cell Count 4.81 k/cumm (4.4-10.8)
[2019-09-25 16:46] LABS: Iron 35 ug/dL (50-170); Total Iron Binding Capacity 323 ug/dL (250-450); Transferrin Sat 11 % (15-50)
[2019-09-25 17:13] LABS: Ferritin 79 ng/mL (8-252); Folate 15.3 ng/mL (8.6-20.0); Vitamin B12 683 pg/mL (193-986)
== END 2019-09-25 15:24 ==
PROVIDERS: Visit Provider Internal Medicine Hematology & Oncology
DX: D64.9 Anemia, unspecified (principal)
CPT/HCPCS: 36415; 82607; 82728; 82746; 83540; 83550; 85025; 85045

== ENCOUNTER → 2019-11-10 12:55 | Outpatient (BNVA) | payer MEDICARE, OTHER, SELFPAY | PROVIDERS: Visit Provider Urology | DX: C67.9 Malignant neoplasm of bladder, unspecified (principal); I10 Essential (primary) hypertension; E11.9 Type 2 diabetes mellitus without complications | CPT/HCPCS: 52000; 81003; 99213 ==

== ENCOUNTER 2019-11-20 01:46 | Outpatient (CLI) | payer MEDICARE, OTHER, SELFPAY ==
[2019-11-21 18:27] LABS: COVID-19 RT-PCR Result NEGATIVE (Negative)
== END 2019-11-20 02:06 ==
PROVIDERS: Visit Provider Urology
DX: Z11.59 Encounter for screening for other viral diseases (principal)
CPT/HCPCS: U0003

== ENCOUNTER 2019-11-23 07:23 | Day surgery (SDC) | payer MEDICARE, OTHER, SELFPAY ==
[2019-11-23 07:40] VITALS: BP 96/48; PULSE 88; RESP 16; TEMP 36.6; O2SAT 96
[2019-11-23] MEDS: Lactated Ringers 1,000 ML 80 ML IV (08:18)
--- NOTE | 2019-11-23 08:43 | W.PM.HP.N ---
Date of service: 11/23/19 Time of Service: 08:44 Assessment and Plan Assessment and plan (1) Bladder cancer: Status: Acute Assessment and plan: For cystoscopy with biopsy, fulguration and instillation of Mitomycin C into the bladder. History of Present Illness History of Present Illness Chief Complaint: Bladder cancer Narrative: This is a 64 year old woman who has a history of anal cancer. she was treated with trimodal therapy (chemo, radiation and surgery). She had gross hematuria and was identified as having noninvasive urothelial cell carcinoma of the bladder. She received induction intravesical chemotherapy with gemcitabine. On surveillance cystoscopy, she had a small papillary lesion behind the left ureteral orifice and a more nodular are posterior in the bladder. She presents for biopsy, fulguration and instillation of Mitomycin C into the bladder. Review of Systems Narrative: No fevers or chills No vision change or dysphasia Hx DM and hypothyroidism No shortness of breath, cough or hemoptysis No chest pain or palpitations. Hx SVT Hx GERD. No nausea, vomiting, hepatitis, ulcers, jaundice. Rectal bleeding and incontinence No seizures, strokes No bleeding disorders or anemia No gout or arthralgia [facility] Medical History Abnormal glandular Papanicolaou smear of cervix (04/10/02) Acute kidney failure Per pt. unilateral kidney. 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 Advanced directives, counseling/discussion Anemia Bladder cancer f/u with dr. mcmillan Cancer related pain Debility Depression due to physical illness Diabetes mellitus (07/07/12) DVT prophylaxis Essential hypertension (01/02/13) Female infertility GERD (gastroesophageal reflux disease) Goals of care, counseling/discussion Graves' disease Hematuria Hyperlipidemia Hypertension Hypokalemia Hypomagnesemia Hypotension determined by examination Hypothyroidism (07/07/12) H/O GRAVES ophthalmopathy Increased BMI Mass of anus (11/08/17) 11/04/17 -Hyperplastic polyps of descending colon and rectum Invasive keratinizing squamous cell carcinoma -Tumor invading at least rectal mucosa and submucosa [facility] [place] referral initiated by Dr. Wolff Obesity (BMI 30-39.9) Peripheral edema Rectal cancer Sepsis Shock circulatory Smoker Quit October 2017 - back to smoking several per day 11/27 SVT (supraventricular tachycardia) Per pt. r/t to graves disease. Pt. states she has not had any issues with this for a long time. She states she see's her PCP, to f/u UTI (urinary tract infection) Varicose veins of both lower extremities Surgical History Cervical Procedure (~1989) CRYOTHERAPY Cortical cataract of left eye Cortical cataract of right eye Endometrial Biopsy (~2002) History of bilateral ligation of fallopian tubes (02/01/14) History of gynecological procedure History of tonsillectomy and adenoidectomy Ligation of fallopian tube Nuclear sclerotic cataract of left eye Nuclear sclerotic cataract of right eye Posterior subcapsular age-related cataract of left eye Posterior subcapsular age-related cataract, right eye Family History Mother , of cirrhosis at age 68, likely from lifelong obesity Diabetes Essential hypertension Depression Heart disease Hyperlipidemia Stroke Liver cancer Father , dad aged 55 from AMI Heart disease Myocardial infarction Sister Hyperlipidemia Asthma Grandfather Neoplasm LUNG Grandmother Stroke Son Diabetes Asthma Daughter Anxiety Heart disease BORN WITH ENLARGED HEART Depression Bipolar Social History Smoking/Tobacco Use Status: Current every day Tobacco Type: cigarettes Tobacco: How many years used: 50 Quit status: not considering quitting Counseling given: counseling >3 minutes Alcohol Intake: current Alcohol Intake frequency: holidays/special occasions only Alcohol type: beer Drug use: Never Substance use type: does not use Caregiver/Support person: No Household members: spouse and none Housing: apartment Do you need help understanding health information?: Rarely 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 Pets and animals: No Sexually active: No Do you think of yourself as: straight/heterosexual Current gender identity: decline to answer What is your relationship status?: How often do you talk on the phone with friends or family?: three or more times per week How often do you get together with friends or relatives?: decline to answer How often do you attend congregational or zoroastrianism services?: decline to answer Do you belong to any clubs or organized social groups?: decline to answer Panel score (0-1 are the most socially isolated patients): 2 What type of physical activity do you participate in: none Duration: decline to answer Frequency: decline to answer Miranda/Hinduism: Religious Special miranda needs: No Seatbelt use: always Helmet use: No Drive intox or ride w/intox cpr ambulance driver: No Do you feel safe at home: Yes Do you feel safe in your relationship?: Yes Meds Home Medications and Allergies Home Medications Medication Instructions Recorded Confirmed Type calcium carbonate 1 tab.chew PO BID 06/29/12 11/23/19 History blood-glucose meter #1 ea 10/04/14 08/10/19 History Emergen-C 1 packet PO DAILY 07/26/15 11/23/19 History fluocinolone [Synalar] 1 applic TOPICAL BID #1 script 03/28/16 11/23/19 History polyethylene glycol 3350 17 17 gm PO DAILY PRN #255 gm 11/18/17 11/23/19 Rx gram/dose oral powder ondansetron [Zofran ODT] 4 mg PO PRN PRN 12/04/17 11/23/19 History levothyroxine 137 mcg tablet 137 mcg PO DAILY #90 tab-cap 07/31/18 11/23/19 Rx hyoscyamine sulfate [Anaspaz] 0.125 mg PO BID-QID PRN #30 tab 11/11/18 11/23/19 Rx psyllium husk 3.4 gram/5.4 gram 2 tsp PO .Every Other Day gm 12/01/18 11/23/19 History oral powder blood sugar diagnostic #300 strip 01/13/19 08/10/19 Rx lancets 28 gauge #300 each 01/13/19 08/10/19 Rx metoprolol succinate 25 mg 25 mg PO DAILY #90 tab 03/31/19 11/23/19 Rx tablet,extended release 24 hr glipizide 2.5 mg tablet, extended 5 mg PO BID #180 tab 04/02/19 11/23/19 Rx release 24 hr acetaminophen 500 mg tablet 500 mg PO BID tab 05/14/19 11/23/19 History pantoprazole 40 mg tablet,delayed 40 mg PO DAILY@0730 #90 tab 05/14/19 11/23/19 Rx release potassium chloride 20 mEq 20 meq PO DAILY #90 tab 08/04/19 11/23/19 Rx tablet,extended release sertraline 50 mg tablet 50 mg PO DAILY #90 tab 09/07/19 11/23/19 Rx simvastatin 10 mg tablet 10 mg PO HS #90 tab-cap 09/10/19 11/23/19 Rx metformin 500 mg tablet 500 mg PO BID@0800,1700 #180 tab 09/17/19 11/23/19 Rx Allergies Allergy/AdvReac Type Severity Reaction Status Date / Time copper Allergy Skin Rash Verified 11/19/19 15:36 lidocaine Allergy Itching Verified 11/19/19 15:36 codeine AdvReac tired Verified 11/19/19 15:36 latex AdvReac eczema Verified 11/19/19 15:36 flares up oxycodone AdvReac Verified 11/19/19 15:36 Exam Const General: cooperative, comfortable and no acute distress Neck Neck: supple Resp Effort & Inspection: normal respiratory effort Auscultation: clear to auscultation bilaterally Cardio Rate: regular rate Rhythm: regular rhythm GI Palpation: soft and no masses Neuro General: patient alert, patient awake and patient oriented x3 Results Last Vital Signs Temp 36.6 C 11/23/19 07:40 Pulse 88 11/23/19 07:40 Resp 16 11/23/19 07:40 BP 96/48 L 11/23/19 07:40 Pulse Ox 96 11/23/19 07:40 COVID-19 Screening Have you,or household,traveled outside [place] in last 14 days?: Yes Had IN PERSON contact w/suspected or confirmed C-19 person: No
[2019-11-23] MEDS: Lidocaine 2% Jelly 6 ML SYR (09:37)
--- NOTE | 2019-11-23 09:43 | BLADDER_PTH ---
PATIENT: Sherry Werner LOC: [facility] U#:[id number] AGE/SX: 64/F ROOM: RE11/23/[address]: Chris Ruiz MD : [id number] BED: DIS: 11/23/2019 SPEC #: [id number] RECD: 11/23/19 12:43 STATUS: PAPI REQ #: [id number] DEON: 11/23/19 09:[address]: Chris Ruiz DEPT: Surgical Specimen RECD BY: Daphne Diaz ENTERED: 11/23/19 12:43 SP TYPE: Bladder OTHR DR: Diane Leblanc APRN Tissues: 1 - BLADDER BIOPSY Procedures: GROSS AND MICRO LEVEL 4 Comments: [id number]
--- NOTE | 2019-11-23 09:51 | W.PM.DSUDISC ---
Discharge Plan Disposition Patient Disposition: HOME Condition: Stable Discharge Details Reason For Visit: bladder cancer Attending Provider: Chris Ruiz Primary Care Provider: Diane Leblanc Home Meds and New Rx's Prescriptions: No Action Metamucil 3.4 gram/5.4 gram powder 2 tsp PO .Every Other Day RF: 0 (DME) lancets 28 gauge misc 1 ea Miscellaneous BID Qty: 300 RF: 4 (DME) Blood Glucose Test Strip 1 ea Miscellaneous BID Qty: 300 RF: 4 pantoprazole 40 mg tablet,delayed release (DR/EC) 40 mg PO DAILY@0730 Qty: 90 RF: 3 calcium carbonate 500 MG tablet 1 tab.chew PO BID RF: 0 (DME) blood-glucose meter 1 EACH misc 1 ea Miscellaneous DAILY Qty: 1 RF: 0 Emergen-C 1,000 MG powder effervescent in packet 1 packet PO DAILY RF: 0 fluocinolone [Synalar] 120 GM ointment 1 applic Topical BID Qty: 1 RF: 2 polyethylene glycol 3350 17 gram/dose powder 17 gm PO DAILY PRN (Reason: constipation) Qty: 255 RF: 2 levothyroxine [Synthroid] 137 mcg tablet 137 mcg PO DAILY Qty: 90 RF: 4 metoprolol succinate 25 mg tablet extended release 24 hr 25 mg PO DAILY Qty: 90 RF: 3 glipizide 2.5 mg tablet extended release 24hr 5 mg PO BID Qty: 180 RF: 3 acetaminophen 500 mg tablet 500 mg PO BID RF: 0 potassium chloride 20 mEq tablet extended release 20 meq PO DAILY Qty: 90 RF: 3 sertraline 50 mg tablet 50 mg PO DAILY Qty: 90 RF: 3 simvastatin [Zocor] 10 mg tablet 10 mg PO HS Qty: 90 RF: 4 metformin 500 mg tablet 500 mg PO BID@0800,1700 Qty: 180 RF: 3 ondansetron [Zofran ODT] 4 mg Tablet,Disintegrating 4 mg PO PRN PRNRF: 0 hyoscyamine sulfate [Anaspaz] 0.125 mg tablet,disintegrating 0.125 mg PO BID-QID PRN (Reason: bladder pain) Qty: 30 RF: 0 Discharge Instructions Additional Instructions: Followup to review biopsy 2 weeks (by phone is OK) - followup appt will depend on pathology leave weaver clamped with Mitomycin C in bladder for 1 to 2 hours then drain bladder and remove weaver Activity:: Activity as Tolerated Shower/Bathe:: 24 hours Diet:: As Tolerated Discharge Orders Discharge Orders: Discharge Order (Routine); Ordered 11/23/19 Ordered By: Chris Ruiz DS: Diagnosis Discharge Diagnosis (1) Bladder cancer: Status: Acute
--- NOTE | 2019-11-23 09:57 | W.PM.OP ---
Date of service: 11/23/19 Time of Service: 09:57 Operative Note Operative Note DATE OF PROCEDURE: 11/23/19 PRE-OP DIAGNOSIS: Bladder cancer POST-OP DIAGNOSIS: same PROCEDURE: Cystoscopy, bladder biopsy with fulguration, instillation of Mitomycin C into bladder SURGEON: Chris Ruiz ANESTHESIA: other (General without intubation) ESTIMATED BLOOD LOSS: 5 PATHOLOGY: other (Bladder biopsy) Patient was transported to: same day Patient's condition: stable Indications: This is a 64-year-old woman who has a history of anal cancer. She was treated with a combination of surgery, radiation and chemotherapy. I initially saw her when she developed hematuria and clots. She was found to have a high-grade noninvasive urothelial cell carcinoma of the bladder. She was treated with an induction course of gemcitabine. On surveillance cystoscopy, there were 2 areas of mucosal abnormality. 1 of the areas was adjacent to the left ureteral orifice and the other was on the posterior wall of the bladder. She comes in for biopsy and fulguration of these areas as well as an instillation of mitomycin-C. Findings: Mucosal abnormalities (less than 2 cm) adjacent to the left ureteral orifice and on posterior bladder wall Procedure Description: The patient was brought to the operating room on 11/23/2019. After successful induction of general anesthesia, she was placed in the dorsal lithotomy position. Her genitalia is prepped and draped. 2% Xylocaine jelly was instilled into the urethra to act as a local anesthetic. A 22 Citizen [place] cystoscope sheath was passed through the urethra into the bladder. The bladder was inspected with a 30 degree lens. Adjacent to and just medial to the left ureteral orifice, there was a small papillary mucosal abnormality. On the posterior bladder wall, there was a more flat appearing mucosal abnormality. The remainder the bladder appeared pale with some prominent blood vessels as one would expect from radiated tissue. We use cold cup biopsy forceps to biopsy both of the mucosal abnormalities. These were sent together to pathology for permanent section. I then used bipolar Bugbee to cauterize the biopsy sites. We made sure not to cauterize over the left ureteral orifice. Hemostasis appeared adequate. We removed the cystoscope and passed a 16 [place] Dias catheter through the urethra into the bladder. We inflated the catheter balloon with 10 cc of sterile water. After draining the bladder, we then instilled a 40 mL solution containing 40 mg of mitomycin-C. We clamped the catheter leaving the mitomycin-C in place. We will plan on unclamping the catheter to drain the mitomycin after about an hour. The catheter will then be removed. She tolerated this procedure well with no complications.
[2019-11-23] MEDS: Phenazopyridine 200 MG TAB PO (10:19)
[2019-11-23 10:40] VITALS: BP 109/57; PULSE 77; RESP 16; TEMP 36.5; O2SAT 97
== END 2019-11-23 11:40 | disposition home or self-care (01) ==
PROVIDERS: Visit Provider Urology
PROC: 0TBB8ZX Excision of Bladder, Via Natural or Artificial Opening Endoscopic, Diagnostic (ICD-10-PCS; CPT 52204; principal; 2019-11-23 09:15)
PROC: (CPT 52234; 2019-11-23 09:15)
DX: C67.9 Malignant neoplasm of bladder, unspecified (principal); E03.9 Hypothyroidism, unspecified; E11.9 Type 2 diabetes mellitus without complications; I10 Essential (primary) hypertension
CPT/HCPCS: 52234; 51720; 88305; NC; J0690; J9280

== ENCOUNTER 2019-11-27 05:42 | Day surgery (SDC) | payer MEDICARE, OTHER, SELFPAY ==
[2019-11-27] VITALS (8 sets, daily range): BP systolic 122–171; BP diastolic 61–89; PULSE 90–112; RESP 16–25; TEMP 36.3–36.8; O2SAT 93–99
--- NOTE | 2019-11-27 05:59 | ED.GENADUL_ITS ---
Discharge Plan Disposition Patient Disposition: [facility] INPATIENT Condition: Good Discharge Details Clinical Impression: Acute UTI, Hydronephrosis, left Primary Care Provider: Diane Leblanc ED Provider: B[place] Meds and New Rx's Prescriptions: No Action Metamucil 3.4 gram/5.4 gram powder 2 tsp PO .Every Other Day RF: 0 (DME) lancets 28 gauge misc 1 ea Miscellaneous BID Qty: 300 RF: 4 (DME) Blood Glucose Test Strip 1 ea Miscellaneous BID Qty: 300 RF: 4 pantoprazole 40 mg tablet,delayed release (DR/EC) 40 mg PO DAILY@0730 Qty: 90 RF: 3 calcium carbonate 500 MG tablet 1 tab.chew PO BID RF: 0 (DME) blood-glucose meter 1 EACH misc 1 ea Miscellaneous DAILY Qty: 1 RF: 0 Emergen-C 1,000 MG powder effervescent in packet 1 packet PO DAILY RF: 0 fluocinolone [Synalar] 120 GM ointment 1 applic Topical BID Qty: 1 RF: 2 polyethylene glycol 3350 17 gram/dose powder 17 gm PO DAILY PRN (Reason: constipation) Qty: 255 RF: 2 levothyroxine [Synthroid] 137 mcg tablet 137 mcg PO DAILY Qty: 90 RF: 4 metoprolol succinate 25 mg tablet extended release 24 hr 25 mg PO DAILY Qty: 90 RF: 3 glipizide 2.5 mg tablet extended release 24hr 5 mg PO BID Qty: 180 RF: 3 acetaminophen 500 mg tablet 500 mg PO BID RF: 0 potassium chloride 20 mEq tablet extended release 20 meq PO DAILY Qty: 90 RF: 3 sertraline 50 mg tablet 50 mg PO DAILY Qty: 90 RF: 3 simvastatin [Zocor] 10 mg tablet 10 mg PO HS Qty: 90 RF: 4 metformin 500 mg tablet 500 mg PO BID@0800,1700 Qty: 180 RF: 3 ondansetron [Zofran ODT] 4 mg Tablet,Disintegrating 4 mg PO PRN PRNRF: 0 hyoscyamine sulfate [Anaspaz] 0.125 mg tablet,disintegrating 0.125 mg PO BID-QID PRN (Reason: bladder pain) Qty: 30 RF: 0 Medical Decision Making Patient presents with acute onset of left lower quadrant abdominal pain early this morning. She is status post urologic procedure on the . Had no issues postprocedure. Has prior history of rectal cancer status post chemo and radiation. Complains of left lower quadrant pain but has relatively benign abdomen. She has no CVAT. She has no fever. IV established and fluids started. Zofran and morphine ordered for symptomatic control. Laboratory studies and CT scan ordered. Patient a little better after medications. Laboratory studies show normal white count. Hemoglobin stable. Creatinine a little up from baseline. Urine visibly infected and confirmed on dipstick and micro. Ceftriaxone ordered. CT scan shows evidence of obstruction with left hydronephrosis and hydroureter. Discussed with Dr. Mcmillan. He will come see the patient and plan on taking her to the OR this morning for stent. Patient aware of plan. Medical Records Medical records reviewed: Yes I reviewed the patient's medical records. Lab Data Lab results reviewed: Yes I reviewed the patient's lab results. HPI General Mode of arrival: EMS . Date/Time Provider Initiated Documentation: 11/27/19 05:55 . Limitations to Documentation: no limitations . Information obtained by: patient, RN notes reviewed and old records reviewed . HPI Narrative: Patient presents to the ED with complaint of left lower quadrant abdominal pain. Pain started around 2 AM this morning. Associated with nausea and vomiting. She has had feelings of needing to urinate and defecate without much success either way. She had undergone cystoscopy with biopsies and fulguration on the . She has had no issues until earlier this morning. She denies fever. She denies hematuria. She also reports history of rectal cancer status post chemo and radiation. She denies any back pain. Related Data Home Medications Medication Instructions Recorded Confirmed calcium carbonate 1 tab.chew PO BID 06/29/12 11/27/19 blood-glucose meter #1 ea 10/04/14 11/27/19 Emergen-C 1 packet PO DAILY 07/26/15 11/27/19 fluocinolone [Synalar] 1 applic TOPICAL BID #1 script 03/28/16 11/27/19 polyethylene glycol 3350 17 17 gm PO DAILY PRN #255 gm 11/18/17 11/27/19 gram/dose oral powder ondansetron [Zofran ODT] 4 mg PO PRN PRN 12/04/17 11/27/19 levothyroxine 137 mcg tablet 137 mcg PO DAILY #90 tab-cap 07/31/18 11/27/19 hyoscyamine sulfate [Anaspaz] 0.125 mg PO BID-QID PRN #30 tab 11/11/18 11/27/19 psyllium husk 3.4 gram/5.4 gram 2 tsp PO .Every Other Day gm 12/01/18 11/27/19 oral powder blood sugar diagnostic #300 strip 01/13/19 11/27/19 lancets 28 gauge #300 each 01/13/19 11/27/19 metoprolol succinate 25 mg 25 mg PO DAILY #90 tab 03/31/19 11/27/19 tablet,extended release 24 hr glipizide 2.5 mg tablet, extended 5 mg PO BID #180 tab 04/02/19 11/27/19 release 24 hr acetaminophen 500 mg tablet 500 mg PO BID tab 05/14/19 11/27/19 pantoprazole 40 mg tablet,delayed 40 mg PO DAILY@0730 #90 tab 05/14/19 11/27/19 release potassium chloride 20 mEq 20 meq PO DAILY #90 tab 08/04/19 11/27/19 tablet,extended release sertraline 50 mg tablet 50 mg PO DAILY #90 tab 09/07/19 11/27/19 simvastatin 10 mg tablet 10 mg PO HS #90 tab-cap 09/10/19 11/27/19 metformin 500 mg tablet 500 mg PO BID@0800,1700 #180 tab 09/17/19 11/27/19 Previous Rx's Medication Instructions Recorded polyethylene glycol 3350 17 17 gm PO DAILY PRN #255 gm 11/18/17 gram/dose oral powder levothyroxine 137 mcg tablet 137 mcg PO DAILY #90 tab-cap 07/31/18 hyoscyamine sulfate [Anaspaz] 0.125 mg PO BID-QID PRN #30 tab 11/11/18 blood sugar diagnostic #300 strip 01/13/19 lancets 28 gauge #300 each 01/13/19 metoprolol succinate 25 mg 25 mg PO DAILY #90 tab 03/31/19 tablet,extended release 24 hr glipizide 2.5 mg tablet, extended 5 mg PO BID #180 tab 04/02/19 release 24 hr pantoprazole 40 mg tablet,delayed 40 mg PO DAILY@0730 #90 tab 05/14/19 release potassium chloride 20 mEq 20 meq PO DAILY #90 tab 08/04/19 tablet,extended release sertraline 50 mg tablet 50 mg PO DAILY #90 tab 09/07/19 simvastatin 10 mg tablet 10 mg PO HS #90 tab-cap 09/10/19 metformin 500 mg tablet 500 mg PO BID@0800,1700 #180 tab 09/17/19 Allergies Allergy/AdvReac Type Severity Reaction Status Date / Time copper Allergy Skin Rash Verified 11/27/19 06:10 lidocaine Allergy Itching Verified 11/27/19 06:10 codeine AdvReac tired Verified 11/27/19 06:10 latex AdvReac eczema Verified 11/27/19 06:10 flares up oxycodone AdvReac Verified 11/27/19 06:10 General Stated Complaint: Abd Prob SEMAJ: 3 Review of Systems Narrative: 12/22 Review of Systems completed and is negative except as stated above in HPI (Systems reviewed: Const, Eyes, ENT, Resp, CV, GI, , MSK, Skin, Neuro) [facility] Medical History Abnormal glandular Papanicolaou smear of cervix (04/10/02) Acute kidney failure Per pt. unilateral kidney. 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 Advanced directives, counseling/discussion Anemia Bladder cancer f/u with dr. mmcillan Cancer related pain Debility Depression due to physical illness Diabetes mellitus (07/07/12) DVT prophylaxis Essential hypertension (01/02/13) Female infertility GERD (gastroesophageal reflux disease) Goals of care, counseling/discussion Graves' disease Hematuria Hyperlipidemia Hypertension Hypokalemia Hypomagnesemia Hypotension determined by examination Hypothyroidism (07/07/12) H/O GRAVES ophthalmopathy Increased BMI Mass of anus (11/08/17) 11/04/17 -Hyperplastic polyps of descending colon and rectum Invasive keratinizing squamous cell carcinoma -Tumor invading at least rectal mucosa and submucosa [facility] referral initiated by Dr. Wolff Obesity (BMI 30-39.9) Peripheral edema Rectal cancer Sepsis Shock circulatory Smoker Quit October 2017 - back to smoking several per day 11/27 SVT (supraventricular tachycardia) Per pt. r/t to graves disease. Pt. states she has not had any issues with this for a long time. She states she see's her PCP, to f/u UTI (urinary tract infection) Varicose veins of both lower extremities Surgical History Cervical Procedure (~1989) CRYOTHERAPY Cortical cataract of left eye Cortical cataract of right eye Endometrial Biopsy (~2002) History of bilateral ligation of fallopian tubes (02/01/14) History of gynecological procedure History of tonsillectomy and adenoidectomy Ligation of fallopian tube Nuclear sclerotic cataract of left eye Nuclear sclerotic cataract of right eye Posterior subcapsular age-related cataract of left eye Posterior subcapsular age-related cataract, right eye Family History Mother , of cirrhosis at age 68, likely from lifelong obesity Diabetes Essential hypertension Depression Heart disease Hyperlipidemia Stroke Liver cancer Father , dad aged 55 from AMI Heart disease Myocardial infarction Sister Hyperlipidemia Asthma Grandfather Neoplasm LUNG Grandmother Stroke Son Diabetes Asthma Daughter Anxiety Heart disease BORN WITH ENLARGED HEART Depression Bipolar Social History Smoking/Tobacco Use Status: Current every day Tobacco Type: cigarettes Tobacco: How many years used: 50 Quit status: not considering quitting Counseling given: counseling >3 minutes Alcohol Intake: current Alcohol Intake frequency: holidays/special occasions only Alcohol type: beer Drug use: Never Substance use type: does not use Caregiver/Support person: No Household members: spouse and none Housing: apartment Do you need help understanding health information?: Rarely 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 Pets and animals: No Sexually active: No Do you think of yourself as: straight/heterosexual Current gender identity: decline to answer What is your relationship status?: How often do you talk on the phone with friends or family?: three or more times per week How often do you get together with friends or relatives?: decline to answer How often do you attend hoahaoism or muslim services?: decline to answer Do you belong to any clubs or organized social groups?: decline to answer Panel score (0-1 are the most socially isolated patients): 2 What type of physical activity do you participate in: none Duration: decline to answer Frequency: decline to answer Miranda/Taoism: Yarsanism Special miranda needs: No Seatbelt use: always Helmet use: No Drive intox or ride w/intox farm truck driver: No Do you feel safe at home: Yes Do you feel safe in your relationship?: Yes Exam Narrative Exam Narrative: Vitals: Afebrile. Mild hypertension and tachycardia. Normal room air saturation. Const: Obese female in NAD. HEENT: NC/AT. Normal facial exam. Eyes: Normal conjunctiva and sclera. Neck: Supple. Trachea midline. Lungs: Normal respiratory effort. Cor: Good radial pulses. GI: Soft. NT/ND. No guarding or rebound. Back: No CVAT Neuro: A+O x 3. Normal speech, mentation. Cranial nerves II - XII grossly intact. No gross motor or sensory deficit. Ext: No C/C/E. Skin: Warm and dry without rash. Course Vital Signs Vital signs: Vital Signs Temperature 98.2 F 11/27/19 05:41 Pulse 101 H 11/27/19 05:41 Respiratory Rate 16 11/27/19 05:41 Blood Pressure 160/70 H 11/27/19 05:41 Pulse Oximetry 98 11/27/19 05:41 Temperature 98.2 F 11/27/19 05:41 Temperature Source Temporal Artery Scan 11/27/19 05:41 Pulse 101 H 11/27/19 05:41 Respiratory Rate 16 11/27/19 05:41 Respiratory Effort 11/27/19 05:50 Blood Pressure 160/70 H 11/27/19 05:41 Blood Pressure Position Sitting 11/27/19 05:41 Pulse Oximetry 98 11/27/19 05:41 Oxygen Delivery Method Room Air 11/27/19 05:41 Oxygen Flow Rate 0 11/27/19 05:41 Pain Level 10 11/27/19 05:41
--- NOTE | 2019-11-27 06:00 | DI.CT_ITS ---
EXAM: CT ABDOMEN PELVIS W INDICATION: LLQ pain. COMPARISON: CT CT CHEST/ABD/PEL W from 08/31/2019 TECHNIQUE: FINDINGS: CT examination of the abdomen and pelvis was performed with a bolus infusion of 100 cc of Omnipaque 3 50. Images obtained through the lung bases are unremarkable. Liver, spleen and pancreas appear normal . Gallbladder and bile ducts are CT normal. Adrenals appear. Right kidney is atrophic. There is new left hydronephrosis not present on prior CT of August 30. There is small perinephric fluid collection on the left. There is hydroureter on the left without evidence of a stone. Question high density in mid to distal left ureter, clot or tumor not excluded. Urinary bladder is nearly collapsed. 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 The findings as described are consistent with obstruction of the left ureter o n non calculus basis. Abdominal aorta is of normal diameter moderate with mural calcifications. Major visceral branches ap pear patent there is mural calcification celiac trunk and SMA and renal arteries bilaterally. Right renal artery is small and right kidney is atrophic. No abdominal wall hernia. No abdominal or pelvic adenopathy. 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 Appendix is normal. No evidence of diverticulitis or bowel obstruction. IMPRESSION: New severe left hydronephrosis and hydroureter, no stone identified. Increased radiodensity occupies mid to distal ureter on the and the possibility of clot or tumor is raised. The patient reportedly recently had cystoscopy with fulguration of bladder mass. RADIATION DOSE DELIVERED: 1,292.41mGy.cm Total DLP 1,292.41mGy.cm Total DLP
[2019-11-27] MEDS: MORPHine 10 MG/ML VIAL 4 MG IVP (06:22)
[2019-11-27] MEDS: Ondansetron 4 MG/2 ML VIAL IVP (06:23)
[2019-11-27] MEDS: Lactated Ringers 1,000 ML 125 ML IV (06:23)
[2019-11-27 06:30] LABS: Bilirubin Negative (Negative); Blood Large (Negative); Clarity Cloudy (Clear); Glucose Negative (Negative); Ketones Negative (Negative); Leukocyte Esterase Large (Negative); Nitrite Positive (Negative); Specific Gravity 1.025 (1.005-1.025); Urobilinogen 0.2 EU/dL (Up TO 0.2); pH 6.5 (5-8)
[2019-11-27 06:32] LABS: ALT 27 U/L (14-59); AST 19 U/L (15-37); Abs Immature Grans 0.16 10^3/uL (0.0-0.06); Absolute Basophil Count 0.04 10^3/uL (0.0-0.2); Absolute Eosinophil Count 0.12 10^3/uL (0.0-0.7); Absolute Lymphocyte Count 0.62 10^3/uL (1.2-3.4); Absolute Neutrophil Count 8.95 10^3/uL (1.2-6.7); Albumin 3.5 g/dL (3.4-5.0); Alkaline Phosphatase 106 U/L (46-116); Anion Gap 10.4 mmol/L (3-11); BUN 16 mg/dL (7-18); Basophils % 0.4; Bilirubin, Total 0.3 mg/dL (0.2-1.0); CO2 24.6 mmol/L (21.0-32.0); CREATININE 1.38 mg/dL (0.55-1.02); Calcium 9.2 mg/dL (8.5-10.1); Chloride 102 mmol/L (98-107); Eosinophils % 1.1; Estimated GFR 38.25 (mL/min/1.73m2); Glucose 223 mg/dL (74-106); HCT 31.6 % (36.0-46.0); HGB 9.6 g/dL (11.2-15.7); Immature Grans % 1.5; Lipase 48 U/L (73-393); Lymphocytes % 5.9; MCH 26.4 pg (27.0-33.0); MCHC 30.4 % (32.0-36.0); MCV 87.1 fL (80-95); MPV 8.9 fL (8.0-11.0); Monocytes % 6.6; Neutrophils % 84.5; Nucleated RBC 0 %; Platelet Count 329 10^3/uL (130-400); Potassium 4.3 mmol/L (3.5-5.1); RBC 3.63 10^6/uL (3.93-5.22); RDW 19.1 % (11.7-14.6); RDW-SD 60.8 fL; Sodium 137 mmol/L (136-145); Total Protein 7.5 g/dL (6.4-8.2); WBC 10.59 10^3/uL (4.4-10.8)
[2019-11-27 06:46] LABS: WBC >50 HPF (0-5)
[2019-11-27 06:47] LABS: C & S Indicated? Yes
[2019-11-27] MEDS: cefTRIAXone 1 GM/50 ML BAG IVPB (07:21)
[2019-11-27] MEDS: Omnipaque 350 MG/ML 100 ML BTL IJ (07:23)
[2019-11-27] MEDS: Normal Saline - Diluent 50 ML VIAL IV (07:25)
--- NOTE | 2019-11-27 08:15 | DI.RAD_ITS ---
EXAM: XR RETROGRADE IN OR CLINICAL HISTORY: Hydronephrosis, LEFT TECHNIQUE: COMPARISON: No exams were available for comparison FINDINGS: C-arm fluoroscopy was utilized by Dr. Ruiz during reported retrograde ureteral are a fee. Hard copy shows left-sided ureteral stent placement in the renal pelvis/upper pole collecting system. Fluoro time, 11.0 seconds IMPRESSION: RADIATION DOSE DELIVERED: Total DLP
--- NOTE | 2019-11-27 08:21 | W.PM.HP.N ---
Date of service: 11/27/19 Time of Service: 08:21 Assessment and Plan Assessment and plan (1) Hydronephrosis, left: Status: Acute Assessment and plan: Will place stent urgently History of Present Illness History of Present Illness Chief Complaint: Left hydronephrosis Narrative: This is a 64 year old woman who has a history of anal cancer and urothelial cell carcinoma of the bladder. She underwent a cystoscopy, bladder biopsy and instillation of Mitomycin C into the bladder earlier this week. One of the lesions addressed was medial to the left ureteral orifice. She did well until this morning when she awoke with an acute onset of left lower quadrant and flank pain. Her CT shows new onset left hydronephrosis with hydroureter down to the UVJ. No stone is identified. Her risk factors for strictures include her recent surgery and prior pelvic radiation. Review of Systems Narrative: No fevers or chills No vision change or dysphasia No diabetes or thyroid No shortness of breath, cough or hemoptysis No chest pain or palpitations No nausea, vomiting. Fecal incontinence No seizures, strokes or peripheral neuropathy No bleeding disorders or anemia No gout [facility] Medical History Abnormal glandular Papanicolaou smear of cervix (04/10/02) Acute kidney failure Per pt. unilateral kidney. 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 Advanced directives, counseling/discussion Anemia Bladder cancer f/u with dr. mcmillan Cancer related pain Debility Depression due to physical illness Diabetes mellitus (07/07/12) DVT prophylaxis Essential hypertension (01/02/13) Female infertility GERD (gastroesophageal reflux disease) Goals of care, counseling/discussion Graves' disease Hematuria Hyperlipidemia Hypertension Hypokalemia Hypomagnesemia Hypotension determined by examination Hypothyroidism (07/07/12) H/O GRAVES ophthalmopathy Increased BMI Mass of anus (11/08/17) 11/04/17 -Hyperplastic polyps of descending colon and rectum Invasive keratinizing squamous cell carcinoma -Tumor invading at least rectal mucosa and submucosa [facility] referral initiated by Dr. Wolff Obesity (BMI 30-39.9) Peripheral edema Rectal cancer Sepsis Shock circulatory Smoker Quit October 2017 - back to smoking several per day 11/27 SVT (supraventricular tachycardia) Per pt. r/t to graves disease. Pt. states she has not had any issues with this for a long time. She states she see's her PCP, to f/u UTI (urinary tract infection) Varicose veins of both lower extremities Surgical History Cervical Procedure (~1989) CRYOTHERAPY Cortical cataract of left eye Cortical cataract of right eye Endometrial Biopsy (~2002) History of bilateral ligation of fallopian tubes (02/01/14) History of gynecological procedure History of tonsillectomy and adenoidectomy Ligation of fallopian tube Nuclear sclerotic cataract of left eye Nuclear sclerotic cataract of right eye Posterior subcapsular age-related cataract of left eye Posterior subcapsular age-related cataract, right eye Family History Mother , of cirrhosis at age 68, likely from lifelong obesity Diabetes Essential hypertension Depression Heart disease Hyperlipidemia Stroke Liver cancer Father , dad aged 55 from AMI Heart disease Myocardial infarction Sister Hyperlipidemia Asthma Grandfather Neoplasm LUNG Grandmother Stroke Son Diabetes Asthma Daughter Anxiety Heart disease BORN WITH ENLARGED HEART Depression Bipolar Social History Smoking/Tobacco Use Status: Current every day Tobacco Type: cigarettes Tobacco: How many years used: 50 Quit status: not considering quitting Counseling given: counseling >3 minutes Alcohol Intake: current Alcohol Intake frequency: holidays/special occasions only Alcohol type: beer Drug use: Never Substance use type: does not use Caregiver/Support person: No Household members: spouse and none Housing: apartment Do you need help understanding health information?: Rarely 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 Pets and animals: No Sexually active: No Do you think of yourself as: straight/heterosexual Current gender identity: decline to answer What is your relationship status?: How often do you talk on the phone with friends or family?: three or more times per week How often do you get together with friends or relatives?: decline to answer How often do you attend mu-ism or adventism services?: decline to answer Do you belong to any clubs or organized social groups?: decline to answer Panel score (0-1 are the most socially isolated patients): 2 What type of physical activity do you participate in: none Duration: decline to answer Frequency: decline to answer Miranda/Yazidism: Alevism Special miranda needs: No Seatbelt use: always Helmet use: No Drive intox or ride w/intox class c driver: No Do you feel safe at home: Yes Do you feel safe in your relationship?: Yes Meds Home Medications and Allergies Home Medications Medication Instructions Recorded Confirmed Type calcium carbonate 1 tab.chew PO BID 06/29/12 11/27/19 History blood-glucose meter #1 ea 10/04/14 11/27/19 History Emergen-C 1 packet PO DAILY 07/26/15 11/27/19 History fluocinolone [Synalar] 1 applic TOPICAL BID #1 script 03/28/16 11/27/19 History polyethylene glycol 3350 17 17 gm PO DAILY PRN #255 gm 11/18/17 11/27/19 Rx gram/dose oral powder ondansetron [Zofran ODT] 4 mg PO PRN PRN 12/04/17 11/27/19 History levothyroxine 137 mcg tablet 137 mcg PO DAILY #90 tab-cap 07/31/18 11/27/19 Rx hyoscyamine sulfate [Anaspaz] 0.125 mg PO BID-QID PRN #30 tab 11/11/18 11/27/19 Rx psyllium husk 3.4 gram/5.4 gram 2 tsp PO .Every Other Day gm 12/01/18 11/27/19 History oral powder blood sugar diagnostic #300 strip 01/13/19 11/27/19 Rx lancets 28 gauge #300 each 01/13/19 11/27/19 Rx metoprolol succinate 25 mg 25 mg PO DAILY #90 tab 03/31/19 11/27/19 Rx tablet,extended release 24 hr glipizide 2.5 mg tablet, extended 5 mg PO BID #180 tab 04/02/19 11/27/19 Rx release 24 hr acetaminophen 500 mg tablet 500 mg PO BID tab 05/14/19 11/27/19 History pantoprazole 40 mg tablet,delayed 40 mg PO DAILY@0730 #90 tab 05/14/19 11/27/19 Rx release potassium chloride 20 mEq 20 meq PO DAILY #90 tab 08/04/19 11/27/19 Rx tablet,extended release sertraline 50 mg tablet 50 mg PO DAILY #90 tab 09/07/19 11/27/19 Rx simvastatin 10 mg tablet 10 mg PO HS #90 tab-cap 09/10/19 11/27/19 Rx metformin 500 mg tablet 500 mg PO BID@0800,1700 #180 tab 09/17/19 11/27/19 Rx Allergies Allergy/AdvReac Type Severity Reaction Status Date / Time copper Allergy Skin Rash Verified 11/27/19 06:10 lidocaine Allergy Itching Verified 11/27/19 06:10 codeine AdvReac tired Verified 11/27/19 06:10 latex AdvReac eczema Verified 11/27/19 06:10 flares up oxycodone AdvReac Verified 11/27/19 06:10 Exam Const General: cooperative and uncomfortable Neck Neck: supple Resp Effort & Inspection: normal respiratory effort Auscultation: clear to auscultation bilaterally Cardio Rate: regular rate Rhythm: regular rhythm Neuro General: patient awake and patient oriented x3 Results Labs Result diagrams: 11/27/19 05:58 11/27/19 05:58 Labs: Laboratory Results - last 24 hr 11/27/19 11/27/19 11/27/19 05:58 05:58 06:20 WBC 10.59 RBC 3.63 L Hgb 9.6 L Hct 31.6 L MCV 87.1 MCH 26.4 L MCHC 30.4 L RDW 19.1 H Plt Count 329 MPV 8.9 Immature Gran % 1.5 Neutrophils % 84.5 Lymphocytes % 5.9 Monocytes % 6.6 Eosinophils % 1.1 Basophils % 0.4 Nucleated RBC % 0 Absolute Neutrophils 8.95 H Absolute Lymphocytes 0.62 L Absolute Monocytes 0.70 Absolute Eosinophils 0.12 Absolute Basophils 0.04 Sodium 137 Potassium 4.3 Chloride 102 Carbon Dioxide 24.6 Anion Gap 10.4 BUN 16 Creatinine 1.38 H Estimated GFR/1.73 m2 38.25 Glucose 223 H Calcium 9.2 Total Bilirubin 0.3 AST 19 ALT 27 Alkaline Phosphatase 106 Total Protein 7.5 Albumin 3.5 Lipase 48 Urine Color [place] Urine Clarity Cloudy Urine pH 6.5 Ur Specific [place] 1.025 Urine Protein >=300 H Urine Ketones Negative Urine Blood Large H Urine Nitrite Positive H Urine Bilirubin Negative Urine Urobilinogen 0.2 Ur Leukocyte Esterase Large H Urine RBC Not Applicable Urine WBC >50 H Ur Epithelial Cells Not Applicable Urine Crystals Not Applicable Urine Bacteria Not Applicable Urine Mucus Not Applicable Ur Culture Indicated? Yes Urine Glucose Negative Last Vital Signs Temp 36.5 C 11/27/19 08:16 Pulse 90 11/27/19 08:16 Resp 22 11/27/19 08:16 BP 133/61 11/27/19 08:16 Pulse Ox 96 11/27/19 08:16 COVID-19 Screening Have you,or household,traveled outside [place] in last 14 days?: No Had IN PERSON contact w/suspected or confirmed C-19 person: No
[2019-11-27] MEDS: Omnipaque 300 MG/ML 50 ML BTL (08:53)
[2019-11-27] MEDS: Lidocaine 2% Jelly 6 ML SYR (08:54)
--- NOTE | 2019-11-27 09:01 | W.PM.DSUDISC ---
Discharge Plan Disposition Patient Disposition: HOME Condition: Good Discharge Details Reason For Visit: STEPHANIE Attending Provider: Chris Ruiz Primary Care Provider: Diane Leblanc Home Meds and New Rx's Prescriptions: New tramadol 50 mg tablet 50 mg PO Q6H PRNQty: 30 RF: 0 levofloxacin 250 mg tablet 250 mg PO DAILY Qty: 7 RF: 0 No Action Metamucil 3.4 gram/5.4 gram powder 2 tsp PO .Every Other Day RF: 0 (DME) lancets 28 gauge misc 1 ea Miscellaneous BID Qty: 300 RF: 4 (DME) Blood Glucose Test Strip 1 ea Miscellaneous BID Qty: 300 RF: 4 pantoprazole 40 mg tablet,delayed release (DR/EC) 40 mg PO DAILY@0730 Qty: 90 RF: 3 calcium carbonate 500 MG tablet 1 tab.chew PO BID RF: 0 (DME) blood-glucose meter 1 EACH misc 1 ea Miscellaneous DAILY Qty: 1 RF: 0 Emergen-C 1,000 MG powder effervescent in packet 1 packet PO DAILY RF: 0 fluocinolone [Synalar] 120 GM ointment 1 applic Topical BID Qty: 1 RF: 2 polyethylene glycol 3350 17 gram/dose powder 17 gm PO DAILY PRN (Reason: constipation) Qty: 255 RF: 2 levothyroxine [Synthroid] 137 mcg tablet 137 mcg PO DAILY Qty: 90 RF: 4 metoprolol succinate 25 mg tablet extended release 24 hr 25 mg PO DAILY Qty: 90 RF: 3 glipizide 2.5 mg tablet extended release 24hr 5 mg PO BID Qty: 180 RF: 3 acetaminophen 500 mg tablet 500 mg PO BID RF: 0 potassium chloride 20 mEq tablet extended release 20 meq PO DAILY Qty: 90 RF: 3 sertraline 50 mg tablet 50 mg PO DAILY Qty: 90 RF: 3 simvastatin [Zocor] 10 mg tablet 10 mg PO HS Qty: 90 RF: 4 metformin 500 mg tablet 500 mg PO BID@0800,1700 Qty: 180 RF: 3 ondansetron [Zofran ODT] 4 mg Tablet,Disintegrating 4 mg PO PRN PRNRF: 0 hyoscyamine sulfate [Anaspaz] 0.125 mg tablet,disintegrating 0.125 mg PO BID-QID PRN (Reason: bladder pain) Qty: 30 RF: 0 Discharge Instructions Additional Instructions: Will need followup cystoscopy, stent removal and left ureteroscopy to identify source of her hydronephrosis in 2 to 4 weeks Activity:: Activity as Tolerated Shower/Bathe:: 24 hours Diet:: As Tolerated Discharge Orders Discharge Orders: Discharge Order (Routine); Ordered 11/27/19 Ordered By: Chris Ruiz DS: Diagnosis Discharge Diagnosis (1) Hydronephrosis, left: Status: Acute
--- NOTE | 2019-11-27 09:04 | ROE_ITS ---
Date of service: 11/27/19 Time of Service: 09:05 Operative Note Operative Note DATE OF PROCEDURE: 11/27/19 PRE-OP DIAGNOSIS: Left hydronephrosis POST-OP DIAGNOSIS: same PROCEDURE: cystoscopy, left retrograde pyelogram, insert left ureteral stent SURGEON: Chris Ruiz ANESTHESIA: MAC ESTIMATED BLOOD LOSS: 0 PATHOLOGY: none sent COMPLICATIONS: None Patient was transported to: same day Patient's condition: stable Implants: 6 Panamanian 22 to 30 cm ureteral stent Indications: This is a 64-year-old woman who has a history of anal cancer as well as urothelial cell carcinoma of the bladder. For the anal cancer, she was treated with chemotherapy and radiation as well as surgery. She has had issues with a colovaginal fistula. For the bladder cancer, she had a transurethral resection followed by intravesical gemcitabine. She was recently found to have a cystoscopic evidence of a recurrence. She underwent a cystoscopy and biopsy with fulguration of her tumors and instillation of mitomycin-C earlier this week. She initially did well but presented to the emergency room this morning with an acute onset of the left lower quadrant pain. On CT scan, she was found to have new onset left hydronephrosis with hydroureter down to the level of the bladder. She presents for stent placement. Findings: Left distal ureter relatively normal but dilated above the level of the pelvic brim Procedure Description: The patient was brought to the operating room on 11/27/2019. She had been given a dose of preoperative ceftriaxone in the emergency room. After successful induction of monitored anesthesia care, she was placed in the dorsal lithotomy position. Her genitalia was prepped and draped. 2% Xylocaine jelly was instilled into the urethra to act as a local anesthetic. A 22 Panamanian rigid cystoscope was passed through the urethra into the bladder. The bladder was inspected with a 30 degree lens. No stones or filling defects were seen within the bladder. The left ureteral orifice was identified. I was able to cannulate the orifice with a 6 Panamanian access catheter. A retrograde film was obtained by injecting Omnipaque through the access catheter under fluoroscopic guidance. No extravasation was seen outside the ureter lumen. The distal ureter appeared relatively normal in caliber but the ureter became dilated above the pelvic brim all the way up to the renal pelvis. No specific filling defects were seen. I was able to pass a guidewire through the access catheter and remove the catheter leaving the wire in place. I then passed a 6 Panamanian variable length ureteral stent over the guidewire. The proximal and could be seen curled in the upper pole calyx on fluoroscopy. The distal and could be seen curled within the bladder. No purulent or bloody drainage could be seen coming down from the left ureter once the stent was placed. The bladder was emptied and the scope was removed. She was taken back to the day surgery unit in stable condition.
[2019-11-27] MEDS: Metoprolol 5 MG/5 ML VIAL ×2 (09:31→09:38)
[2019-11-27] MEDS: Phenazopyridine 200 MG TAB PO (11:01)
== END 2019-11-27 11:05 | disposition home or self-care (01) ==
LOC: ER 08:31 → DSU 08:34 → SUR 09:19
PROVIDERS: Emergency Provider Emergency Medicine; Visit Provider Urology
PROC: (CPT 52332; principal; 2019-11-27 08:45)
DX: N13.30 Unspecified hydronephrosis (principal); C67.9 Malignant neoplasm of bladder, unspecified; Z85.048 Personal history of other malignant neoplasm of rectum, rectosigmoid junction, and anus
CPT/HCPCS: 52005; 36415; 80053; 83690; 87077; 96361; 96365; 96367; 96375; 96376; 99285; NC; 74177; 74420; 81003; 81015; 85025; 87086; 87186; J0696; J2001; J2270; J2405; J3490; Q9967

== ENCOUNTER → 2019-12-14 15:18 | Outpatient (BNVA) | payer MEDICARE, OTHER, SELFPAY | PROVIDERS: Visit Provider Urology | DX: N13.30 Unspecified hydronephrosis (principal); C67.9 Malignant neoplasm of bladder, unspecified; E11.9 Type 2 diabetes mellitus without complications; I10 Essential (primary) hypertension | CPT/HCPCS: 99213; 99442 ==

== ENCOUNTER 2019-12-24 02:42 | Outpatient (CLI) | payer MEDICARE, OTHER, SELFPAY ==
[2019-12-24 13:47] LABS: Abs Immature Grans 0.05 10^3/uL (0.0-0.06); Absolute Basophil Count 0.02 10^3/uL (0.0-0.2); Absolute Lymphocyte Count 0.86 10^3/uL (1.2-3.4); Absolute Monocyte Count 0.49 10^3/uL (0.1-0.8); Absolute Neutrophil Count 3.42 10^3/uL (1.2-6.7); Basophils % 0.4; HCT 31.8 % (36.0-46.0); HGB 9.5 g/dL (11.2-15.7); Lymphocytes % 17.1; MCH 26.1 pg (27.0-33.0); MCHC 29.9 % (32.0-36.0); MCV 87.4 fL (80-95); MPV 8.5 fL (8.0-11.0); Monocytes % 9.7; Neutrophils % 67.8; Nucleated RBC 0 %; Platelet Count 281 10^3/uL (130-400); RBC 3.64 10^6/uL (3.93-5.22); RDW 19.8 % (11.7-14.6); WBC 5.04 10^3/uL (4.4-10.8)
[2019-12-24 13:59] LABS: ALT 25 U/L (14-59); AST 15 U/L (15-37); Albumin 3.4 g/dL (3.4-5.0); Alkaline Phosphatase 109 U/L (46-116); Anion Gap 9.1 mmol/L (3-11); BUN 17 mg/dL (7-18); Bilirubin, Total 0.2 mg/dL (0.2-1.0); CO2 28.9 mmol/L (21.0-32.0); CREATININE 1.06 mg/dL (0.55-1.02); Calcium 9.1 mg/dL (8.5-10.1); Chloride 102 mmol/L (98-107); Estimated GFR 51.86 (mL/min/1.73m2); Glucose 131 mg/dL (74-106); Potassium 4.3 mmol/L (3.5-5.1); Sodium 140 mmol/L (136-145); Total Protein 7.5 g/dL (6.4-8.2)
== END 2019-12-24 03:02 ==
PROVIDERS: Visit Provider Internal Medicine Hematology & Oncology
DX: C21.0 Malignant neoplasm of anus, unspecified (principal)
CPT/HCPCS: 36415; 80053; 85025

== ENCOUNTER 2020-02-02 03:21 | Outpatient (CLI) | payer MEDICARE, OTHER, SELFPAY ==
[2020-02-02 13:18] LABS: Abs Immature Grans 0.04 10^3/uL (0.0-0.06); Absolute Basophil Count 0.03 10^3/uL (0.0-0.2); Absolute Eosinophil Count 0.13 10^3/uL (0.0-0.7); Absolute Lymphocyte Count 0.86 10^3/uL (1.2-3.4); Absolute Monocyte Count 0.42 10^3/uL (0.1-0.8); Absolute Neutrophil Count 3.46 10^3/uL (1.2-6.7); Basophils % 0.6; Eosinophils % 2.6; HCT 31.6 % (36.0-46.0); HGB 9.6 g/dL (11.2-15.7); Immature Grans % 0.8; Lymphocytes % 17.4; MCH 26.4 pg (27.0-33.0); MCHC 30.4 % (32.0-36.0); MCV 87.1 fL (80-95); MPV 8.4 fL (8.0-11.0); Monocytes % 8.5; Neutrophils % 70.1; Nucleated RBC 0 %; Platelet Count 275 10^3/uL (130-400); RBC 3.63 10^6/uL (3.93-5.22); RDW 19.9 % (11.7-14.6); RDW-SD 63.3 fL; WBC 4.94 10^3/uL (4.4-10.8)
[2020-02-02 13:41] LABS: Iron 33 ug/dL (50-170); Total Iron Binding Capacity 341 ug/dL (250-450); Transferrin Sat 10 % (15-50)
[2020-02-02 13:51] LABS: ALT 28 U/L (14-59); AST 15 U/L (15-37); Albumin 3.5 g/dL (3.4-5.0); Alkaline Phosphatase 97 U/L (46-116); Anion Gap 8.9 mmol/L (3-11); BUN 16 mg/dL (7-18); Bilirubin, Total 0.2 mg/dL (0.2-1.0); CO2 26.1 mmol/L (21.0-32.0); CREATININE 1.23 mg/dL (0.55-1.02); Calcium 9.2 mg/dL (8.5-10.1); Chloride 104 mmol/L (98-107); Estimated GFR 43.68 (mL/min/1.73m2); Ferritin 53 ng/mL (8-252); Glucose 131 mg/dL (74-106); Potassium 4.2 mmol/L (3.5-5.1); Sodium 139 mmol/L (136-145); Total Protein 7.6 g/dL (6.4-8.2)
== END 2020-02-02 03:41 ==
PROVIDERS: Visit Provider Internal Medicine Hematology & Oncology
DX: C21.0 Malignant neoplasm of anus, unspecified (principal); I10 Essential (primary) hypertension; D64.9 Anemia, unspecified
CPT/HCPCS: 36415; 80053; 82728; 83540; 83550; 85025

== ENCOUNTER 2020-02-22 01:42 | Outpatient (CLI) | payer MEDICARE, OTHER, SELFPAY ==
[2020-02-23 17:32] LABS: COVID-19 RT-PCR UVMMC Result Negative (Negative)
== END 2020-02-22 02:02 ==
PROVIDERS: Visit Provider Urology
DX: Z11.59 Encounter for screening for other viral diseases (principal)
CPT/HCPCS: U0003

== ENCOUNTER 2020-02-25 06:17 | Day surgery (SDC) | payer MEDICARE, OTHER, SELFPAY ==
--- NOTE | 2020-02-23 09:50 | PDOC.ANES ---
Date of service: 02/23/20 Time of Service: 09:51 Anesthesia Note Report Anesthesia Note: Preoperative chart review for upcoming urological procedure. We have taken care of Mrs. Werner several times in 2019, health appears stable to that baseline, I am aware of a potential stress test and awaiting those results. Patient is clear to proceed at this time depending on those results or other significant status change.
[2020-02-25 06:57] VITALS: BP 115/68; PULSE 90; RESP 20; TEMP 36.6; O2SAT 97
--- NOTE | 2020-02-25 07:14 | HPE_ITS ---
Date of service: 02/25/20 Time of Service: 07:15 Assessment and Plan Assessment and plan (1) Hydronephrosis, left: Status: Acute Assessment and plan: We will remove the ureteral stent and run the ureter oscope up to assess the cause of her hydronephrosis History of Present Illness History of Present Illness Chief Complaint: Left hydronephrosis Narrative: This is a 64-year-old woman who has a past history significant for the anal cancer. She was treated with a combination of radiation therapy along with 5- fluorouracil and mitomycin. She developed colovaginal fistulas and has had setons placed. I initially saw her about a year ago when she developed gross hematuria and clots. We did cystoscopy and identified a bladder tumor. Pathology demonstrated high-grade noninvasive urothelial cell carcinoma of the bladder. She had a second opinion and second resection done down at [facility]. No residual tumor was identified. She was then treated with an induction course of intravesical BCG. She had a surveillance cystoscopy done here in the office. There was some erythematous patches that were identified, so we went to the operating room where I biopsied and fulgurated those areas. About 3 days after that procedure, she presented to the emergency room with an acute onset of left flank pain. CT scan demonstrated left hydronephrosis and the possibility of a filling defect in the left mid ureter. This was a new finding for this patient. I placed a ureteral stent and her pain improved immediately. She now presents for cystoscopy, stent removal ureteroscopy to assess the cause of the hydronephrosis Review of Systems Narrative: No fevers or chills No vision change or dysphasia Hx diabetes and thyroid dysfunction No shortness of breath, cough or hemoptysis No chest pain or palpitations Hx GERD. Fecal incontinence improved with Metamucil. No hepatitis, ulcers, jaundice No seizures, strokes or peripheral neuropathy No bleeding disorders No gout [facility] Medical History Abnormal glandular Papanicolaou smear of cervix (04/10/02) Acute kidney failure Per pt. unilateral kidney. 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 Advanced directives, counseling/discussion Anemia Bladder cancer f/u with dr. mcmillan Cancer related pain Debility Depression due to physical illness Diabetes mellitus (04/29/13) DVT prophylaxis Essential hypertension (01/02/13) Female infertility GERD (gastroesophageal reflux disease) Goals of care, counseling/discussion Graves' disease Hematuria Hyperlipidemia Hypertension Hypokalemia Hypomagnesemia Hypotension determined by examination Hypothyroidism (07/07/12) H/O GRAVES ophthalmopathy Increased BMI Mass of anus (11/08/17) 11/04/17 -Hyperplastic polyps of descending colon and rectum Invasive keratinizing squamous cell carcinoma -Tumor invading at least rectal mucosa and submucosa [facility] [place] initiated by Dr. Wolff Obesity (BMI 30-39.9) Peripheral edema L ankle Rectal cancer Sepsis Shock circulatory Smoker Quit October 2017 - back to smoking several per day 11/27 SVT (supraventricular tachycardia) Per pt. r/t to graves disease. Pt. states she has not had any issues with this for a long time. She states she see's her PCP, to f/u UTI (urinary tract infection) Varicose veins of both lower extremities Surgical History Cervical Procedure (~1989) CRYOTHERAPY Cortical cataract of left eye Cortical cataract of right eye Endometrial Biopsy (~2002) History of bilateral ligation of fallopian tubes (02/01/14) History of gynecological procedure History of tonsillectomy and adenoidectomy Ligation of fallopian tube Nuclear sclerotic cataract of left eye Nuclear sclerotic cataract of right eye Posterior subcapsular age-related cataract of left eye Posterior subcapsular age-related cataract, right eye Family History Mother , of cirrhosis at age 68, likely from lifelong obesity Diabetes Essential hypertension Depression Heart disease Hyperlipidemia Stroke Liver cancer Father , dad aged 55 from AMI Heart disease Myocardial infarction Sister Hyperlipidemia Asthma Grandfather Neoplasm LUNG Grandmother Stroke Son Diabetes Asthma Daughter Anxiety Heart disease BORN WITH ENLARGED HEART Depression Bipolar Social History Smoking/Tobacco Use Status: Current every day Tobacco Type: cigarettes Tobacco: How many years used: 50 Quit status: not considering quitting Counseling given: counseling >3 minutes Smoking risk assessment performed?: Yes Alcohol Intake: current Alcohol Intake frequency: holidays/special occasions only Alcohol type: beer Drug use: Never Substance use type: does not use Caregiver/Support person: No Household members: spouse and none Housing: apartment Do you need help understanding health information?: Rarely 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 Pets and animals: No Sexually active: No Do you think of yourself as: straight/heterosexual Current gender identity: decline to answer What is your relationship status?: How often do you talk on the phone with friends or family?: three or more times per week How often do you get together with friends or relatives?: decline to answer How often do you attend congregational or jainism services?: decline to answer Do you belong to any clubs or organized social groups?: decline to answer Panel score (0-1 are the most socially isolated patients): 2 What type of physical activity do you participate in: none Duration: decline to answer Frequency: decline to answer Miranda/Episcopal: Jain Special miranda needs: No Seatbelt use: always Helmet use: No Drive intox or ride w/intox hydraulic lift driver: No Do you feel safe at home: Yes Do you feel safe in your relationship?: Yes Meds Home Medications and Allergies Home Medications Medication Instructions Recorded Confirmed Type calcium carbonate 1 tab.chew PO BID 06/29/12 02/25/20 History blood-glucose meter #1 ea 10/04/14 02/23/20 History Emergen-C 1 packet PO DAILY 07/26/15 02/25/20 History fluocinolone [Synalar] 1 applic TOPICAL BID #1 script 03/28/16 02/25/20 History polyethylene glycol 3350 17 17 gm PO DAILY PRN #255 gm 11/18/17 02/25/20 Rx gram/dose oral powder ondansetron [Zofran ODT] 4 mg PO PRN PRN 12/04/17 02/25/20 History hyoscyamine sulfate [Anaspaz] 0.125 mg PO BID-QID PRN #30 tab 11/11/18 02/25/20 Rx psyllium husk 3.4 gram/5.4 gram 2 tsp PO .Every Other Day gm 12/01/18 02/25/20 History oral powder blood sugar diagnostic #300 strip 01/13/19 02/23/20 Rx lancets 28 gauge #300 each 01/13/19 02/23/20 Rx metoprolol succinate 25 mg 25 mg PO DAILY #90 tab 03/31/19 02/25/20 Rx tablet,extended release 24 hr glipizide 2.5 mg tablet, extended 5 mg PO BID #180 tab 04/02/19 02/25/20 Rx release 24 hr acetaminophen 500 mg tablet 500 mg PO BID tab 05/14/19 02/25/20 History pantoprazole 40 mg tablet,delayed 40 mg PO DAILY@0730 #90 tab 05/14/19 02/25/20 Rx release potassium chloride 20 mEq 20 meq PO DAILY #90 tab 08/04/19 02/25/20 Rx tablet,extended release simvastatin 10 mg tablet 10 mg PO HS #90 tab-cap 09/10/19 02/25/20 Rx metformin 500 mg tablet 500 mg PO BID@0800,1700 #180 tab 09/17/19 02/25/20 Rx levofloxacin 250 mg PO DAILY #7 tab 11/27/19 02/25/20 Rx tramadol 50 mg PO Q6H PRN #30 tab 11/27/19 02/25/20 Rx sertraline 50 mg tablet 50 mg PO DAILY #90 tab 01/09/20 02/25/20 Rx levothyroxine 137 mcg tablet 137 mcg PO DAILY #90 tab-cap 02/03/20 02/25/20 Rx Allergies Allergy/AdvReac Type Severity Reaction Status Date / Time copper Allergy Skin Rash Verified 02/25/20 06:50 lidocaine Allergy Itching Verified 02/25/20 06:50 codeine AdvReac tired Verified 02/25/20 06:50 latex AdvReac eczema Verified 02/25/20 06:50 flares up oxycodone AdvReac Verified 02/25/20 06:50 Exam Const General: cooperative, comfortable and no acute distress Neck Neck: supple Resp Effort & Inspection: normal respiratory effort Auscultation: clear to auscultation bilaterally Cardio Rate: regular rate Rhythm: regular rhythm GI Palpation: no masses and not rigid Neuro General: patient alert, patient awake and patient oriented x3 Results Last Vital Signs Temp 36.6 C 02/25/20 06:57 Pulse 90 02/25/20 06:57 Resp 20 02/25/20 06:57 BP 115/68 02/25/20 06:57 Pulse Ox 97 02/25/20 06:57 COVID-19 Screening Have you, or household traveled for leisure in last 14 days?: No Had IN PERSON contact w/suspected or confirmed C-19 person: No
[2020-02-25] MEDS: Lactated Ringers 1,000 ML 80 ML IV (07:25)
[2020-02-25] MEDS: ceFAZolin 2 GM/50 ML BAG IVPB (07:49)
[2020-02-25] MEDS: Omnipaque 300 MG/ML 50 ML BTL (08:12)
[2020-02-25] MEDS: Lidocaine 2% Jelly 6 ML SYR (08:12)
--- NOTE | 2020-02-25 08:56 | W.PM.DSUDISC ---
Discharge Plan Disposition Patient Disposition: HOME Condition: Stable Discharge Details Reason For Visit: hydronephrosis Attending Provider: Chris Ruiz Primary Care Provider: Diane Leblanc Home Meds and New Rx's Prescriptions: No Action Metamucil 3.4 gram/5.4 gram powder 2 tsp PO .Every Other Day RF: 0 (DME) lancets 28 gauge misc 1 ea Miscellaneous BID Qty: 300 RF: 4 (DME) Blood Glucose Test Strip 1 ea Miscellaneous BID Qty: 300 RF: 4 pantoprazole 40 mg tablet,delayed release (DR/EC) 40 mg PO DAILY@0730 Qty: 90 RF: 3 calcium carbonate 500 MG tablet 1 tab.chew PO BID RF: 0 (DME) blood-glucose meter 1 EACH misc 1 ea Miscellaneous DAILY Qty: 1 RF: 0 Emergen-C 1,000 MG powder effervescent in packet 1 packet PO DAILY RF: 0 fluocinolone [Synalar] 120 GM ointment 1 applic Topical BID Qty: 1 RF: 2 polyethylene glycol 3350 17 gram/dose powder 17 gm PO DAILY PRN (Reason: constipation) Qty: 255 RF: 2 metoprolol succinate 25 mg tablet extended release 24 hr 25 mg PO DAILY Qty: 90 RF: 3 glipizide 2.5 mg tablet extended release 24hr 5 mg PO BID Qty: 180 RF: 3 acetaminophen 500 mg tablet 500 mg PO BID RF: 0 potassium chloride 20 mEq tablet extended release 20 meq PO DAILY Qty: 90 RF: 3 simvastatin [Zocor] 10 mg tablet 10 mg PO HS Qty: 90 RF: 4 metformin 500 mg tablet 500 mg PO BID@0800,1700 Qty: 180 RF: 3 sertraline 50 mg tablet 50 mg PO DAILY Qty: 90 RF: 3 levothyroxine [Synthroid] 137 mcg tablet 137 mcg PO DAILY Qty: 90 RF: 4 ondansetron [Zofran ODT] 4 mg Tablet,Disintegrating 4 mg PO PRN PRNRF: 0 hyoscyamine sulfate [Anaspaz] 0.125 mg tablet,disintegrating 0.125 mg PO BID-QID PRN (Reason: bladder pain) Qty: 30 RF: 0 tramadol 50 mg tablet 50 mg PO Q6H PRNQty: 30 RF: 0 levofloxacin 250 mg tablet 250 mg PO DAILY Qty: 7 RF: 0 Discharge Instructions Additional Instructions: Followup 1 to 2 weeks to review cytology results (can be by phone if pt prefers) additional followup for cysto to evaluate bladder tumor and remove stent will be arranged after cytology is available may use tramadol as needed for pain Activity:: Activity as Tolerated Shower/Bathe:: 24 hours Diet:: As Tolerated Discharge Orders Discharge Orders: Discharge Order (Routine); Ordered 02/25/20 Ordered By: Chris Ruiz DS: Diagnosis Discharge Diagnosis (1) Hydronephrosis, left: Status: Acute
--- NOTE | 2020-02-25 09:00 | DI.RAD_ITS ---
EXAM: XR RETROGRADE IN OR INDICATION: Hydronephrosis, left. COMPARISON: No exams were available for comparison TECHNIQUE: 2D digital imaging was performed. FINDINGS: C-arm fluoroscopy was utilized by Dr. Ruiz during reported placement of left ureteral stent. Hard c opy shows stent placement. Fluoro time, 18.5 seconds. IMPRESSION: DATA REPOSITORY: RADIATION DOSE DELIVERED:
--- NOTE | 2020-02-25 09:00 | PAPNONF_PTH ---
PATIENT: Sherry Werner LOC: [facility] U#:[id number] AGE/SX: 64/F ROOM: RE02/25/[address]: Chris Ruiz MD : [id number] BED: DIS: 02/25/2020 SPEC #: [id number] RECD: 02/25/20 13:05 STATUS: PAPI REDonal #: [id number] DEON: 02/25/20 09:[address]: Chris Ruiz DEPT: [facility] Cytology RECD BY: Daphne Diaz ENTERED: 02/25/20 13:05 SP TYPE: KEKE WONG DR: Diane Leblanc APRN Tissues: 1 - BODY FLUID CYTO(SPUTUM/URINE)[facility] Procedures: BODY FLUID CYTO(URINE/SPUTUM) Comments: [id number] (SUBMITTED IN SALINE)
--- NOTE | 2020-02-25 09:00 | W.PM.OP ---
Date of service: 02/25/20 Time of Service: 09:00 Operative Note Operative Note DATE OF PROCEDURE: 02/25/20 PRE-OP DIAGNOSIS: Left hydronephrosis POST-OP DIAGNOSIS: same PROCEDURE: Cystoscopy, remove left ureteral stent, left ureteroscopy, balloon dilation of ureteral stricture, ureteral washing for cytology, insert left ureteral stent SURGEON: Chris Ruiz ANESTHESIA: other (general without intubation) ESTIMATED BLOOD LOSS: 5 PATHOLOGY: other (left ureteral washing for cytology) COMPLICATIONS: None Patient was transported to: same day Patient's condition: stable Implants: 7 ecuadorean by 22 to 30 cm ureteral stent Indications: Left hydronephrosis with possible mid ureteral mass Findings: Left ureteral stricture at the pelvic brim No obvious ureteral mucosal mass Procedure Description: The patient was brought to the operating room on 02/25/2020. After successful induction of general anesthesia without intubation, she was placed in the dorsal lithotomy position. She was given preoperative antibiotics. Her genitalia was prepped and draped. 2% Xylocaine jelly was then instilled into her urethra to act as a local anesthetic. A 22 Korean rigid cystoscope was passed through the urethra into the bladder. The bladder was inspected with a 30 degree lens. A stent could be seen protruding from the left ureteral orifice. No papillary or nodular lesions were seen within the bladder of this patient who has a history of bladder cancer. The left ureteral stent was grasped with alligator forceps and brought to the level of the urethral meatus. A Glidewire was passed through the lumen of the stent and advanced up the remainder of the ureter. The stent was removed leaving the wire in place. The semirigid ureteroscope was then introduced through the urethra into the bladder. The scope was advanced up the left ureter alongside the wire until we reached the pelvic brim in this region, the ureter narrowed and I was unable to pass the scope more proximally. I did not see any specific papillary or nodular lesions in this region. I passed a passport balloon under direct ureteroscopic vision into this strictured area. We dilated the area using the balloon. The balloon was then removed. I was then able to pass the scope more proximally. The mucosa in this region appeared pale rather than erythematous. Above this area, the mucosa appeared more normal. I then did the left ureteral washings using saline and aspirated the saline back through the scope. These washings were sent to pathology for cytology examination. I then removed the ureteroscope and passed a 7 Korean by 22 to 30 cm stent over the indwelling wire. The stent was positioned with the proximal end curled up in the kidney and the distal end curled in the bladder. All scopes were removed. The patient tolerated the procedure well with no complications. Our follow-up recommendations will depend on the cytology results. She was taken back to the day surgery unit in stable condition.
[2020-02-25 09:33] VITALS: PULSE 71; RESP 20; TEMP 36.4; O2SAT 95
== END 2020-02-25 09:55 | disposition home or self-care (01) ==
PROVIDERS: Visit Provider Urology
PROC: (CPT 52341; principal; 2020-02-25 07:30)
DX: N13.1 Hydronephrosis with ureteral stricture, not elsewhere classified (principal); Z85.51 Personal history of malignant neoplasm of bladder; I10 Essential (primary) hypertension; E11.9 Type 2 diabetes mellitus without complications; E78.5 Hyperlipidemia, unspecified
CPT/HCPCS: 52341; NC; 74420; 88104; J0690; J2001; J3010; Q9967

== ENCOUNTER → 2020-03-10 07:39 | Outpatient (BNVA) | payer MEDICARE, OTHER, SELFPAY | PROVIDERS: Visit Provider Urology | DX: N13.30 Unspecified hydronephrosis (principal); N13.5 Crossing vessel and stricture of ureter without hydronephrosis; Z85.51 Personal history of malignant neoplasm of bladder | CPT/HCPCS: 99213; 99441 ==

== ENCOUNTER 2020-03-16 04:27 | Outpatient (CLI) | payer MEDICARE, OTHER, SELFPAY ==
[2020-03-16 13:33] LABS: Abs Immature Grans 0.06 10^3/uL (0.0-0.06); Absolute Basophil Count 0.03 10^3/uL (0.0-0.2); Absolute Eosinophil Count 0.13 10^3/uL (0.0-0.7); Absolute Lymphocyte Count 0.73 10^3/uL (1.2-3.4); Absolute Monocyte Count 0.57 10^3/uL (0.1-0.8); Absolute Neutrophil Count 4.77 10^3/uL (1.2-6.7); Basophils % 0.5; Eosinophils % 2.1; HCT 32.8 % (36.0-46.0); HGB 9.9 g/dL (11.2-15.7); Lymphocytes % 11.6; MCH 26.9 pg (27.0-33.0); MCHC 30.2 % (32.0-36.0); MCV 89.1 fL (80-95); MPV 8.6 fL (8.0-11.0); Monocytes % 9.1; Neutrophils % 75.7; Nucleated RBC 0 %; Platelet Count 312 10^3/uL (130-400); RBC 3.68 10^6/uL (3.93-5.22); RDW 20.1 % (11.7-14.6); RDW-SD 66.1 fL; WBC 6.29 10^3/uL (4.4-10.8)
[2020-03-16 14:22] LABS: Iron 29 ug/dL (50-170); Total Iron Binding Capacity 276 ug/dL (250-450); Transferrin Sat 11 % (15-50)
[2020-03-16 14:36] LABS: ALT 32 U/L (14-59); AST 16 U/L (15-37); Albumin 3.5 g/dL (3.4-5.0); Alkaline Phosphatase 103 U/L (46-116); Anion Gap 11.7 mmol/L (3-11); BUN 16 mg/dL (7-18); Bilirubin, Total 0.2 mg/dL (0.2-1.0); CO2 25.3 mmol/L (21.0-32.0); CREATININE 0.97 mg/dL (0.55-1.02); Calcium 8.8 mg/dL (8.5-10.1); Chloride 102 mmol/L (98-107); Estimated GFR 57.46 (mL/min/1.73m2); Ferritin 239 ng/mL (8-252); Glucose 134 mg/dL (74-106); Potassium 4.4 mmol/L (3.5-5.1); Sodium 139 mmol/L (136-145); Total Protein 7.3 g/dL (6.4-8.2)
== END 2020-03-16 04:47 ==
PROVIDERS: Visit Provider Internal Medicine Hematology & Oncology
DX: C21.0 Malignant neoplasm of anus, unspecified (principal); D64.9 Anemia, unspecified
CPT/HCPCS: 36415; 80053; 82728; 83540; 83550; 85025

== ENCOUNTER → 2020-04-19 07:57 | Outpatient (BNVA) | payer MEDICARE, OTHER, SELFPAY | PROVIDERS: Visit Provider Urology | DX: N13.5 Crossing vessel and stricture of ureter without hydronephrosis | CPT/HCPCS: 52310; 99213 ==

== ENCOUNTER 2020-04-22 20:22 | Emergency (ER) | payer MEDICARE, OTHER, SELFPAY ==
[2020-04-22 20:24] VITALS: BP 148/67; PULSE 101; RESP 18; TEMP 36.4; O2SAT 100
--- NOTE | 2020-04-22 20:28 | ED.GENADUL_ITS ---
Discharge Plan Disposition Patient Disposition: HOME Condition: Stable Discharge Details Chief Complaint: FlankPain Clinical Impression: Acute UTI, Acute left flank pain Primary Care Provider: Diane Leblanc ED Provider: Efrem Garcia Home Meds and New Rx's Prescriptions: No Action Metamucil 3.4 gram/5.4 gram powder 2 tsp PO .Every Other Day RF: 0 (DME) lancets 28 gauge misc 1 ea Miscellaneous BID Qty: 300 RF: 4 (DME) Blood Glucose Test Strip 1 ea Miscellaneous BID Qty: 300 RF: 4 calcium carbonate 500 MG tablet 1 tab.chew PO BID RF: 0 (DME) blood-glucose meter 1 EACH misc 1 ea Miscellaneous DAILY Qty: 1 RF: 0 Emergen-C 1,000 MG powder effervescent in packet 1 packet PO DAILY RF: 0 fluocinolone [Synalar] 120 GM ointment 1 applic Topical BID Qty: 1 RF: 2 acetaminophen 500 mg tablet 500 mg PO BID RF: 0 potassium chloride 20 mEq tablet extended release 20 meq PO DAILY Qty: 90 RF: 3 simvastatin [Zocor] 10 mg tablet 10 mg PO HS Qty: 90 RF: 4 metformin 500 mg tablet 500 mg PO BID@0800,1700 Qty: 180 RF: 3 sertraline 50 mg tablet 50 mg PO DAILY Qty: 90 RF: 3 levothyroxine [Synthroid] 137 mcg tablet 137 mcg PO DAILY Qty: 90 RF: 4 pantoprazole 40 mg tablet,delayed release (DR/EC) 40 mg PO DAILY@0730 Qty: 90 RF: 3 metoprolol succinate 25 mg tablet extended release 24 hr 25 mg PO DAILY Qty: 90 RF: 0 glipizide 2.5 mg tablet extended release 24hr 5 mg PO BID Qty: 180 RF: 3 ondansetron [Zofran ODT] 4 mg Tablet,Disintegrating 4 mg PO PRN PRNRF: 0 hyoscyamine sulfate [Anaspaz] 0.125 mg tablet,disintegrating 0.125 mg PO BID-QID PRN (Reason: bladder pain) Qty: 30 RF: 0 tramadol 50 mg tablet 50 mg PO Q6H PRNQty: 30 RF: 0 Medical Decision Making 64 yo female who had a left ureteral stent placed for left hydronephrosis from a ureter stricutre and had it removed by Dr. Mcmillan on 04/19 comes in with recurrent left flank pain. She denies fevers, chills, abdominal pain. She localizes the discomfort to the left lower oblique, no abdominal tenderness and no guarding on exam. Will treat her pain and discuss with Dr. Mcmillan, no abdominal exam findings to suggest entities such as diverticulitis, sbo or other surgical pathology labs show increased creatinine to 1.6 and ua consistent with likely uti. No fever no leukocytosis, no indications of sepsis at this time. She feels much better and rates pain at 0/10. Spoke with Dr. Mcmillan who did feel if pain was controlled she could f/u with him Saturday and asked for u/s to be ordered as well. Will order this and also covid test in case she needs stent. She is stable and comfortable with d/c and understands if she worsens to return to the emergency department for reevaluation Differential Diagnosis Differential Diagnosis: hydronephrosis, stricture, Lab Data Lab results reviewed: Yes I reviewed the patient's lab results. HPI General Mode of arrival: EMS . Date/Time Provider Initiated Documentation: 04/22/20 20:27 . Limitations to Documentation: no limitations . Information obtained by: patient . History of Present Illness 64 year old F presents to the emergency department with the chief complaint of left sided flank pain, described as moderate, with intensity rated at 8. Quality is described as sharp, and it has been constant. No relieving factors improve symptom(s), No exacerbating factors reported . Patient did receive the following treatments prior to arrival, none Related Data Home Medications Medication Instructions Recorded Confirmed calcium carbonate 1 tab.chew PO BID 06/29/12 04/22/20 blood-glucose meter #1 ea 10/04/14 02/23/20 Emergen-C 1 packet PO DAILY 07/26/15 04/22/20 fluocinolone [Synalar] 1 applic TOPICAL BID #1 script 03/28/16 04/22/20 ondansetron [Zofran ODT] 4 mg PO PRN PRN 12/04/17 04/22/20 hyoscyamine sulfate [Anaspaz] 0.125 mg PO BID-QID PRN #30 tab 11/11/18 04/22/20 psyllium husk 3.4 gram/5.4 gram 2 tsp PO .Every Other Day gm 12/01/18 04/22/20 oral powder blood sugar diagnostic #300 strip 01/13/19 02/23/20 lancets 28 gauge #300 each 01/13/19 02/23/20 acetaminophen 500 mg tablet 500 mg PO BID tab 05/14/19 04/22/20 potassium chloride 20 mEq 20 meq PO DAILY #90 tab 08/04/19 04/22/20 tablet,extended release simvastatin 10 mg tablet 10 mg PO HS #90 tab-cap 09/10/19 04/22/20 metformin 500 mg tablet 500 mg PO BID@0800,1700 #180 tab 09/17/19 04/22/20 tramadol 50 mg PO Q6H PRN #30 tab 11/27/19 04/22/20 sertraline 50 mg tablet 50 mg PO DAILY #90 tab 01/09/20 04/22/20 levothyroxine 137 mcg tablet 137 mcg PO DAILY #90 tab-cap 02/03/20 04/22/20 pantoprazole 40 mg tablet,delayed 40 mg PO DAILY@0730 #90 tab 03/23/20 04/22/20 release glipizide 2.5 mg tablet, extended 5 mg PO BID #180 tab 04/11/20 04/22/20 release 24 hr metoprolol succinate 25 mg 25 mg PO DAILY #90 tab 04/11/20 04/22/20 tablet,extended release 24 hr Previous Rx's Medication Instructions Recorded hyoscyamine sulfate [Anaspaz] 0.125 mg PO BID-QID PRN #30 tab 11/11/18 blood sugar diagnostic #300 strip 01/13/19 lancets 28 gauge #300 each 01/13/19 potassium chloride 20 mEq 20 meq PO DAILY #90 tab 08/04/19 tablet,extended release simvastatin 10 mg tablet 10 mg PO HS #90 tab-cap 09/10/19 metformin 500 mg tablet 500 mg PO BID@0800,1700 #180 tab 09/17/19 tramadol 50 mg PO Q6H PRN #30 tab 11/27/19 sertraline 50 mg tablet 50 mg PO DAILY #90 tab 01/09/20 levothyroxine 137 mcg tablet 137 mcg PO DAILY #90 tab-cap 02/03/20 pantoprazole 40 mg tablet,delayed 40 mg PO DAILY@0730 #90 tab 03/23/20 release glipizide 2.5 mg tablet, extended 5 mg PO BID #180 tab 04/11/20 release 24 hr metoprolol succinate 25 mg 25 mg PO DAILY #90 tab 04/11/20 tablet,extended release 24 hr Allergies Allergy/AdvReac Type Severity Reaction Status Date / Time copper Allergy Skin Rash Verified 04/22/20 20:30 lidocaine Allergy Itching Verified 04/22/20 20:30 codeine AdvReac tired Verified 04/22/20 20:30 latex AdvReac eczema Verified 04/22/20 20:30 flares up oxycodone AdvReac Verified 04/22/20 20:30 General SEMAJ: 3 Review of Systems All systems reviewed & are unremarkable except as noted in HPI and below Constitutional Constitutional: Denies chills, Denies fever(s) and Denies weakness Cardiovascular Cardiovascular: Denies chest pain and Denies dyspnea Respiratory Respiratory: Denies cough and Denies dyspnea Gastrointestinal Gastrointestinal: Denies abdominal pain Musculoskeletal Musculoskeletal: Denies joint swelling Neurologic Neurologic: Denies weakness [facility] Medical History (Updated 04/22/20 @ 21:38 by Efrem Garcia MD) Abnormal glandular Papanicolaou smear of cervix (04/10/02) Acute kidney failure Per pt. unilateral kidney. 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 Advanced directives, counseling/discussion Anemia Bladder cancer f/u with dr. mcmillan Cancer related pain Debility Depression due to physical illness Diabetes mellitus (07/07/12) DVT prophylaxis Essential hypertension (01/02/13) Female infertility GERD (gastroesophageal reflux disease) Goals of care, counseling/discussion Graves' disease Hematuria Hyperlipidemia Hypertension Hypokalemia Hypomagnesemia Hypotension determined by examination Hypothyroidism (07/07/12) H/O GRAVES ophthalmopathy Increased BMI Mass of anus (11/08/17) 11/04/17 -Hyperplastic polyps of descending colon and rectum Invasive keratinizing squamous cell carcinoma -Tumor invading at least rectal mucosa and submucosa [facility] referral initiated by Dr. Wolff Obesity (BMI 30-39.9) Peripheral edema L ankle Rectal cancer Sepsis Shock circulatory Smoker Quit October 2017 - back to smoking several per day 11/27 SVT (supraventricular tachycardia) Per pt. r/t to graves disease. Pt. states she has not had any issues with this for a long time. She states she see's her PCP, to f/u UTI (urinary tract infection) Varicose veins of both lower extremities Surgical History Cervical Procedure (~1989) CRYOTHERAPY Cortical cataract of left eye Cortical cataract of right eye Endometrial Biopsy (~2002) History of bilateral ligation of fallopian tubes (02/01/14) History of gynecological procedure History of tonsillectomy and adenoidectomy Ligation of fallopian tube Nuclear sclerotic cataract of left eye Nuclear sclerotic cataract of right eye Posterior subcapsular age-related cataract of left eye Posterior subcapsular age-related cataract, right eye Family History Mother , of cirrhosis at age 68, likely from lifelong obesity Diabetes Essential hypertension Depression Heart disease Hyperlipidemia Stroke Liver cancer Father , dad aged 55 from AMI Heart disease Myocardial infarction Sister Hyperlipidemia Asthma Grandfather Neoplasm LUNG Grandmother Stroke Son Diabetes Asthma Daughter Anxiety Heart disease BORN WITH ENLARGED HEART Depression Bipolar Social History Smoking/Tobacco Use Status: Current every day Tobacco Type: cigarettes Tobacco: How many years used: 50 Quit status: not considering quitting Counseling given: counseling >3 minutes Smoking risk assessment performed?: Yes Alcohol Intake: current Alcohol Intake frequency: holidays/special occasions only Alcohol type: beer Drug use: Never Substance use type: does not use Caregiver/Support person: No Household members: spouse and none Housing: apartment Do you need help understanding health information?: Rarely 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 Pets and animals: No Sexually active: No Do you think of yourself as: straight/heterosexual Current gender identity: decline to answer What is your relationship status?: How often do you talk on the phone with friends or family?: three or more times per week How often do you get together with friends or relatives?: decline to answer How often do you attend yarsani or shinto services?: decline to answer Do you belong to any clubs or organized social groups?: decline to answer Panel score (0-1 are the most socially isolated patients): 2 What type of physical activity do you participate in: none Duration: decline to answer Frequency: decline to answer Miranda/Scientology: Christian Special miranda needs: No Seatbelt use: always Helmet use: No Drive intox or ride w/intox front end loader driver: No Do you feel safe at home: Yes Do you feel safe in your relationship?: Yes Exam Const General: no acute distress Orientation: alert HENMT Head: normal to inspection Ears: external ears normal General nose exam: external nose normal Mouth: moist mucous membranes Eyes General: appearance normal, both eyes and all related structures Neck Neck: normal visual inspection Resp Effort & Inspection: normal respiratory effort and able to speak in complete sentences Cardio Rate: regular rate Back/Spine/Pelvis Back: no CVA tenderness Skin General skin exam: no rashes or lesions noted Neuro General: patient alert and patient oriented x3 Extrem General: normal to inspection Psych Mental Status: mental status grossly normal
[2020-04-22] MEDS: Normal Saline 1,000 ML 1000 ML IV (20:52)
[2020-04-22] MEDS: Ketorolac 15 MG/ML VIAL IVP (20:52)
[2020-04-22 21:01] LABS: Abs Immature Grans 0.06 10^3/uL (0.0-0.06); Absolute Basophil Count 0.04 10^3/uL (0.0-0.2); Absolute Eosinophil Count 0.12 10^3/uL (0.0-0.7); Absolute Lymphocyte Count 0.81 10^3/uL (1.2-3.4); Absolute Monocyte Count 0.52 10^3/uL (0.1-0.8); Absolute Neutrophil Count 8.12 10^3/uL (1.2-6.7); Basophils % 0.4; Eosinophils % 1.2; HCT 34.5 % (36.0-46.0); HGB 10.4 g/dL (11.2-15.7); Immature Grans % 0.6; Lymphocytes % 8.4; MCH 26.7 pg (27.0-33.0); MCHC 30.1 % (32.0-36.0); MCV 88.7 fL (80-95); MPV 8.8 fL (8.0-11.0); Monocytes % 5.4; Nucleated RBC 0 %; Platelet Count 324 10^3/uL (130-400); RBC 3.89 10^6/uL (3.93-5.22); RDW 19.5 % (11.7-14.6); RDW-SD 63.6 fL; WBC 9.67 10^3/uL (4.4-10.8)
[2020-04-22 21:02] LABS: Bilirubin Negative (Negative); Blood Large (Negative); Clarity Cloudy (Clear); Glucose Negative (Negative); Ketones Negative (Negative); Leukocyte Esterase Moderate (Negative); Nitrite Negative (Negative); Specific Gravity 1.025 (1.005-1.025); Urobilinogen 0.2 EU/dL (Up TO 0.2)
[2020-04-22 21:10] LABS: Bacteria Many HPF (Negative); C & S Indicated? Yes; Casts Negative LPF (Negative); Crystals Negative HPF (Negative); Epithelial Cells Negative HPF (Negative); Mucus Negative (Negative); RBC >50 HPF (0-2); WBC >50 HPF (0-5)
[2020-04-22 21:19] LABS: ALT 26 U/L (14-59); AST 19 U/L (15-37); Albumin 3.4 g/dL (3.4-5.0); Alkaline Phosphatase 115 U/L (46-116); Anion Gap 12.6 mmol/L (3-11); BUN 22 mg/dL (7-18); Bilirubin, Total 0.2 mg/dL (0.2-1.0); CO2 24.4 mmol/L (21.0-32.0); CREATININE 1.6 mg/dL (0.55-1.02); Calcium 9.3 mg/dL (8.5-10.1); Chloride 101 mmol/L (98-107); Estimated GFR 32.25 (mL/min/1.73m2); Glucose 162 mg/dL (74-106); Potassium 4.1 mmol/L (3.5-5.1); Sodium 138 mmol/L (136-145); Total Protein 8.3 g/dL (6.4-8.2)
[2020-04-22] MEDS: levoFLOXacin 500 MG, levoFLOXacin 250 MG 750 MG PO (21:36)
[2020-04-22 21:59] VITALS: BP 145/68; PULSE 91; RESP 20; TEMP 36.6; O2SAT 99
[2020-04-25 16:44] LABS: COVID-19 RT-PCR UVMMC Result Negative (Negative)
--- NOTE | 2020-04-27 11:32 | W.ED.FU ---
Follow Up Plan: Patient had a follow-up appointment with Dr. Greenwood today, 04/27/2020, he reportedly is aware of culture result of urinalysis
== END 2020-04-22 22:17 | disposition home or self-care (01) ==
PROVIDERS: Emergency Provider Emergency Medicine
DX: N39.0 Urinary tract infection, site not specified (principal); B96.20 Unspecified Escherichia coli [E. coli] as the cause of diseases classified elsewhere
CPT/HCPCS: 80053; 87077; 96374; 99284; U0003; 81003; 81015; 85025; 85610; 85730; 87086; 87186; 99283; J1885

== ENCOUNTER 2020-04-25 21:36 | Outpatient (CLI) | payer MEDICARE, OTHER, SELFPAY ==
--- NOTE | 2020-04-25 | DI.US_ITS ---
EXAM: US RENAL CLINICAL HISTORY: LT FLANK PAIN TECHNIQUE: Ultrasound of both kidneys performed using standard protocol. COMPARISON: CT CT ABDOMEN PELVIS W from 11/27/2019 FINDINGS: RIGHT KIDNEY: Measures 7.4 cm in length. Appears atrophic, as evident on the prior CT scan November 2019. LEFT KIDNEY: Measures 12.6 cm in length. Moderate-severe hydronephrosis noted, as was evident on the prior CT sca n. There is no prominent thinning of the cortical mantle. No cyst or solid mass seen in the left ki dney. No calculi seen within the left kidney URINARY BLADDER: Prevoid volume is 209 cc Postvoid volume is 22 cc Some mild debris is noted in the bladder. There is no obvious bladder wall mass evident on these janet ges. Ureterovesical jets: Not identified on this study IMPRESSION: 1. Compared to the CT scan of November 2019 there is again noted moderate-severe hydronephrosis of the left kidney and an atrophic right kidney. 2. Some layering debris is noted in the bladder lumen. There is no obvious bladder mass evident on these ultrasound images. Bladder wall thickness is slightly prominent. Sign rib The ureterovesical jets were not visualized on this study, possibly significant. DATA REPOSITORY:
== END 2020-04-25 21:37 ==
LOC: DI 21:45
PROVIDERS: Visit Provider Emergency Medicine
DX: N13.30 Unspecified hydronephrosis (principal)
CPT/HCPCS: 76770

== ENCOUNTER 2020-04-27 01:20 | Outpatient (CLI) | payer MEDICARE, OTHER, SELFPAY ==
--- NOTE | 2020-04-27 06:45 | DI.NM_ITS ---
CLINICAL HISTORY: ureteral stricture - r/o persistent obstruction,LT HYDRONEPHROSIS,N13.30,. COMPARISON: CT CT CHEST/ABD/PEL W from 08/31/[address] ABDOMEN PELVIS W from 11/27/2019 EXAMINATION: Dose: 11 mCi Tc-99m MAG3 Images: Immediately for 1 minute followed by dynamic for 30 minutes. 30mg Lasix was administered aft er peak uptake in the renal cortex at approximately 13 min. FINDINGS: There is a paucity of uptake in the right kidney which is known to be atrophic as per CT scan of Nov. Indeed, the split function is approximately 100 percent uptake in the left kidney with n egligible uptake in the atrophic right kidney. On the opposite-left side (where there is hydronephrosis and hydroureter as seen on the November CT scan) the kidney exhibits normal size. Peak counts in the kidney are at 15 seconds post injectio n. Following IV Lasix injection (at 13 minutes) there does not appear to be a precipitous drop in the ti me activity curve of the left kidney, the this consistent with an element of obstruction (which appea rs to have occurred in the time interval between the CT scans of 08/31/2019 and 11/27/2019) IMPRESSION: 1. Hypofunctioning atrophic right kidney, as evident on prior CT scans. 2. Less than typical increased excretion on the opposite-left side following IV Lasix injection, impl rupesh an element of obstruction, as evident on the scan 11/27/2019. I note that there was no ipsilater al obstruction evident on the CT scan of 08/31/2019. Sign rib
[2020-04-27] MEDS: Furosemide 40 MG/4 ML VIAL IVP (14:01)
== END 2020-04-27 01:21 ==
LOC: DI 01:21
PROVIDERS: Visit Provider Urology
DX: N13.30 Unspecified hydronephrosis (principal); N13.8 Other obstructive and reflux uropathy; N26.1 Atrophy of kidney (terminal)
CPT/HCPCS: 78708; J1940

== ENCOUNTER → 2020-05-06 13:30 | Outpatient (BNVA) | payer MEDICARE, OTHER, SELFPAY | PROVIDERS: Visit Provider Urology | DX: N13.39 Other hydronephrosis (principal); N39.0 Urinary tract infection, site not specified | CPT/HCPCS: 81003; 99214 ==

== ENCOUNTER 2020-05-06 16:02 | Outpatient (REF) | payer MEDICARE, OTHER, SELFPAY | END 2020-05-06 16:03 | disposition home or self-care (01) | LOC: LBN 16:02 | PROVIDERS: Visit Provider Urology | DX: N39.0 Urinary tract infection, site not specified (principal) | CPT/HCPCS: 87077; 87086; 87186 ==

== ENCOUNTER 2020-05-12 06:06 | Day surgery (SDC) | payer MEDICARE, OTHER, SELFPAY ==
[2020-05-12] VITALS (7 sets, daily range): BP systolic 95–111; BP diastolic 38–60; PULSE 62–79; RESP 12–22; TEMP 36.1–36.4; O2SAT 95–98
--- NOTE | 2020-05-12 06:48 | W.PM.HP.N ---
Date of service: 05/12/20 Time of Service: 06:48 Assessment and Plan Assessment and plan (1) Hydronephrosis, left: Status: Acute Assessment and plan: For cystoscopy and replacement of her left ureteral stent. I believe that she will need a stent and chronically and we will plan on changing it every 3 to 6 months. History of Present Illness History of Present Illness Chief Complaint: Left hydronephrosis Narrative: This is a 64-year-old woman who has a history of anal cancer. She was treated with combinations of chemotherapy, surgery and radiation therapy. We initially saw her when she had gross hematuria. We found that she had a noninvasive urothelial cell carcinoma of the bladder. She was treated with transurethral resection and intravesical chemotherapy. She then developed left hydronephrosis presumably due to a ureteral stricture. On ureteroscopy, no tumor or intraureteral mass was identified. We attempted to balloon dilate the area and subsequently removed her stent. She had persistent hydronephrosis and obstruction on nuclear renogram. She presents for replacement of her ureteral stent. Review of Systems Narrative: No fevers or chills. c/o weakess and fatigue No vision change or dysphasia No diabetes or thyroid No shortness of breath, cough or hemoptysis No chest pain or palpitations Hx GERD. Mild anal seepage No seizures, strokes No bleeding disorders No gout [facility] Medical History Abnormal glandular Papanicolaou smear of cervix (04/10/02) Acute kidney failure Per pt. unilateral kidney. 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 Advanced directives, counseling/discussion Anemia Bladder cancer f/u with dr. mcmillan Cancer related pain Debility Depression due to physical illness Diabetes mellitus (07/07/12) DVT prophylaxis Essential hypertension (01/02/13) Female infertility GERD (gastroesophageal reflux disease) Goals of care, counseling/discussion Graves' disease Hematuria Hyperlipidemia Hypertension Hypokalemia Hypomagnesemia Hypotension determined by examination Hypothyroidism (07/07/12) H/O GRAVES ophthalmopathy Increased BMI Mass of anus (11/08/17) 11/04/17 -Hyperplastic polyps of descending colon and rectum Invasive keratinizing squamous cell carcinoma -Tumor invading at least rectal mucosa and submucosa [facility] referral initiated by Dr. Wolff Obesity (BMI 30-39.9) Peripheral edema L ankle Rectal cancer Sepsis Shock circulatory Smoker Quit October 2017 - back to smoking several per day 11/27 SVT (supraventricular tachycardia) Per pt. r/t to graves disease. Pt. states she has not had any issues with this for a long time. She states she see's her PCP, to f/u UTI (urinary tract infection) Varicose veins of both lower extremities Surgical History (Updated 05/12/20 @ 06:46 by Renu Pinto) Cervical Procedure (~1989) CRYOTHERAPY Cortical cataract of left eye Cortical cataract of right eye Endometrial Biopsy (~2002) History of bilateral ligation of fallopian tubes (02/01/14) History of gynecological procedure History of tonsillectomy and adenoidectomy Hx of cystoscopy Hx of removal of cyst right lower gluteus kurt Ligation of fallopian tube Nuclear sclerotic cataract of left eye Nuclear sclerotic cataract of right eye Posterior subcapsular age-related cataract of left eye Posterior subcapsular age-related cataract, right eye Family History Mother , of cirrhosis at age 68, likely from lifelong obesity Diabetes Essential hypertension Depression Heart disease Hyperlipidemia Stroke Liver cancer Father , dad aged 55 from AMI Heart disease Myocardial infarction Sister Hyperlipidemia Asthma Grandfather Neoplasm LUNG Grandmother Stroke Son Diabetes Asthma Daughter Anxiety Heart disease BORN WITH ENLARGED HEART Depression Bipolar Social History Smoking/Tobacco Use Status: Current every day Tobacco Type: cigarettes Tobacco: How many years used: 50 Quit status: not considering quitting Counseling given: counseling >3 minutes Smoking risk assessment performed?: Yes Alcohol Intake: current Alcohol Intake frequency: holidays/special occasions only Alcohol type: beer Drug use: Never Substance use type: does not use Caregiver/Support person: No Household members: spouse and none Housing: apartment Do you need help understanding health information?: Rarely 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 Pets and animals: No Sexually active: No Do you think of yourself as: straight/heterosexual Current gender identity: decline to answer What is your relationship status?: How often do you talk on the phone with friends or family?: three or more times per week How often do you get together with friends or relatives?: decline to answer How often do you attend jainism or catholic services?: decline to answer Do you belong to any clubs or organized social groups?: decline to answer Panel score (0-1 are the most socially isolated patients): 2 What type of physical activity do you participate in: none Duration: decline to answer Frequency: decline to answer Miranda/Sikhism: Yarsanism Special miranda needs: No Seatbelt use: always Helmet use: No Drive intox or ride w/intox miniature train driver: No Do you feel safe at home: Yes Do you feel safe in your relationship?: Yes Meds Home Medications and Allergies Allergies Allergy/AdvReac Type Severity Reaction Status Date / Time copper Allergy Skin Rash Verified 05/12/20 06:47 lidocaine Allergy Itching Verified 05/12/20 06:47 codeine AdvReac tired Verified 05/12/20 06:47 latex AdvReac eczema Verified 05/12/20 06:47 flares up oxycodone AdvReac Verified 05/12/20 06:47 Home Medications Medication Instructions Recorded Confirmed Type calcium carbonate 1 tab.chew PO BID 06/29/12 05/10/20 History blood-glucose meter #1 ea 10/04/14 05/10/20 History Emergen-C 1 packet PO DAILY 07/26/15 05/10/20 History fluocinolone [Synalar] 1 applic TOPICAL BID #1 script 03/28/16 05/10/20 History ondansetron [Zofran ODT] 4 mg PO PRN PRN 12/04/17 05/10/20 History hyoscyamine sulfate [Anaspaz] 0.125 mg PO BID-QID PRN #30 tab 11/11/18 05/10/20 Rx psyllium husk 3.4 gram/5.4 gram 2 tsp PO .Every Other Day gm 12/01/18 05/10/20 History oral powder blood sugar diagnostic #300 strip 01/13/19 05/10/20 Rx lancets 28 gauge #300 each 01/13/19 02/23/20 Rx acetaminophen 500 mg tablet 500 mg PO BID tab 05/14/19 05/10/20 History potassium chloride 20 mEq 20 meq PO DAILY #90 tab 08/04/19 05/10/20 Rx tablet,extended release simvastatin 10 mg tablet 10 mg PO HS #90 tab-cap 09/10/19 05/10/20 Rx metformin 500 mg tablet 500 mg PO BID@0800,1700 #180 tab 09/17/19 05/10/20 Rx tramadol 50 mg PO Q6H PRN #30 tab 11/27/19 05/10/20 Rx sertraline 50 mg tablet 50 mg PO DAILY #90 tab 01/09/20 05/10/20 Rx levothyroxine 137 mcg tablet 137 mcg PO DAILY #90 tab-cap 02/03/20 05/10/20 Rx pantoprazole 40 mg tablet,delayed 40 mg PO DAILY@0730 #90 tab 03/23/20 05/10/20 Rx release glipizide 2.5 mg tablet, extended 5 mg PO BID #180 tab 04/11/20 05/10/20 Rx release 24 hr metoprolol succinate 25 mg 25 mg PO DAILY #90 tab 04/11/20 05/10/20 Rx tablet,extended release 24 hr nitrofurantoin 100 mg PO Q12H 7 Days #14 cap 05/06/20 05/10/20 Rx monohydrate/macrocrystals 100 mg capsule nystatin 100,000 unit/mL oral 10 ml PO QID 10 Days #400 ml 05/06/20 05/10/20 Rx suspension Exam Narrative Exam Narrative: She is in no current distress but appears chronically ill. She is cooperative. Her vital signs are documented elsewhere Her lungs are clear Cardiac exam shows a regular rate and rhythm Her abdomen is soft with no mass She is awake and alert Results Last Vital Signs Temp 36.1 C L 05/12/20 06:35 Pulse 79 05/12/20 06:35 Resp 22 05/12/20 06:35 BP 95/60 L 05/12/20 06:35 Pulse Ox 96 05/12/20 06:35 COVID-19 Screening Have you, or household traveled for leisure in last 14 days?: No Had IN PERSON contact w/suspected or confirmed C-19 person: No
[2020-05-12] MEDS: Lactated Ringers 1,000 ML 80 ML IV (07:15)
[2020-05-12] MEDS: ceFAZolin 2 GM/50 ML BAG IVPB (07:29)
[2020-05-12] MEDS: Lidocaine 2% Jelly 6 ML SYR (07:58)
[2020-05-12] MEDS: Omnipaque 300 MG/ML 50 ML BTL (07:58)
--- NOTE | 2020-05-12 07:59 | DI.RAD_ITS ---
EXAM: XR RETROGRADE IN OR CLINICAL HISTORY: kidney stone left TECHNIQUE: 2D and realtime digital imaging was performed. CONTRAST MATERIAL: Refer to procedure report. COMPARISON: No exams were available for comparison FINDINGS: Fluoroscopy was provided for Dr. Ruiz during the performance of a retrograde evaluation of the tre l collecting system. Please refer to the procedure report for complete details. Fluoro time: 15.5 seconds IMPRESSION: RADIATION DOSE DELIVERED:
--- NOTE | 2020-05-12 08:01 | W.PM.DSUDISC ---
Discharge Plan Disposition Patient Disposition: HOME Condition: Stable Discharge Details Reason For Visit: left hydronephrosis Attending Provider: Chris Ruiz Primary Care Provider: Diane Leblanc Home Meds and New Rx's Prescriptions: No Action Metamucil 3.4 gram/5.4 gram powder 2 tsp PO .Every Other Day RF: 0 (DME) lancets 28 gauge misc 1 ea Miscellaneous BID Qty: 300 RF: 4 (DME) Blood Glucose Test Strip 1 ea Miscellaneous BID Qty: 300 RF: 4 nystatin 100,000 unit/mL suspension 10 ml PO QID 10 Days Qty: 400 RF: 0 nitrofurantoin monohyd/m-cryst [Macrobid] 100 mg capsule 100 mg PO Q12H 7 Days Qty: 14 RF: 0 calcium carbonate 500 MG tablet 1 tab.chew PO BID RF: 0 (DME) blood-glucose meter 1 EACH misc 1 ea Miscellaneous DAILY Qty: 1 RF: 0 Emergen-C 1,000 MG powder effervescent in packet 1 packet PO DAILY RF: 0 fluocinolone [Synalar] 120 GM ointment 1 applic Topical BID Qty: 1 RF: 2 acetaminophen 500 mg tablet 500 mg PO BID RF: 0 potassium chloride 20 mEq tablet extended release 20 meq PO DAILY Qty: 90 RF: 3 simvastatin [Zocor] 10 mg tablet 10 mg PO HS Qty: 90 RF: 4 metformin 500 mg tablet 500 mg PO BID@0800,1700 Qty: 180 RF: 3 sertraline 50 mg tablet 50 mg PO DAILY Qty: 90 RF: 3 levothyroxine [Synthroid] 137 mcg tablet 137 mcg PO DAILY Qty: 90 RF: 4 pantoprazole 40 mg tablet,delayed release (DR/EC) 40 mg PO DAILY@0730 Qty: 90 RF: 3 metoprolol succinate 25 mg tablet extended release 24 hr 25 mg PO DAILY Qty: 90 RF: 0 glipizide 2.5 mg tablet extended release 24hr 5 mg PO BID Qty: 180 RF: 3 ondansetron [Zofran ODT] 4 mg Tablet,Disintegrating 4 mg PO PRN PRNRF: 0 hyoscyamine sulfate [Anaspaz] 0.125 mg tablet,disintegrating 0.125 mg PO BID-QID PRN (Reason: bladder pain) Qty: 30 RF: 0 tramadol 50 mg tablet 50 mg PO Q6H PRNQty: 30 RF: 0 Discharge Instructions Additional Instructions: no office followup visit needed, but ask pt to call office with progress report tomorrow pt will need cystoscopy, possible TURBT and left stent change in 3 months - my office will arrange and contact pt Activity:: Activity as Tolerated Shower/Bathe:: 24 hours Diet:: As Tolerated Discharge Orders Discharge Orders: Discharge Order (Routine); Ordered 05/12/20 Ordered By: Chris Ruiz DS: Diagnosis Discharge Diagnosis (1) Hydronephrosis, left: Status: Acute
--- NOTE | 2020-05-12 08:05 | ROE_ITS ---
Date of service: 05/12/20 Time of Service: 08:05 Operative Note Operative Note DATE OF PROCEDURE: 05/12/20 PRE-OP DIAGNOSIS: left hydronephrosis POST-OP DIAGNOSIS: same PROCEDURE: cystoscopy, left retrograde pyelogram, insert left ureteral stent SURGEON: Chris Ruiz ANESTHESIA TYPE: General:No Airway Refer to Anesthesia Record ESTIMATED BLOOD LOSS: 0 PATHOLOGY: none sent COMPLICATIONS: None Patient was transported to: PACU Patient's condition: stable Implants: 6 [place] by 22 to 30 cm long left ureteral stent Indications: This is a 64-year-old woman who has a history of anal cancer, bladder cancer and left hydronephrosis which is related to radiation therapy. She presents for stent placement to relieve the hydronephrosis Findings: No evidence of bladder cancer Hydronephrotic drip from left kidney once stent was placed Procedure Description: The patient was brought to the operating room on 05/12/2020. After being given general anesthesia without intubation, she was placed in the dorsal lithotomy position. Her genitalia was prepped and draped. 2% Xylocaine jelly was instilled into the urethra to act as a local anesthetic. A 22 [place] rigid cystoscope was passed through the urethra into the bladder. The bladder was inspected using both a 30 and a 70 degree lens. Both ureteral orifice ease appeared normal with no blood coming from either side. The bladder mucosa was somewhat paler than usual but no papillary or nodular lesions were seen. The left ureteral orifice was cannulated with a six [place] access catheter. The catheter was advanced up to the kidney and hydronephrotic drip was identified. Retrograde pyelogram was then performed by injecting Omnipaque through the access catheter under fluoroscopic guidance. This outlined the collecting system for us. I then passed a guidewire through the lumen of the access catheter and removed the catheter. A six [place] variable length stent was then advanced over the wire. The proximal end of the stent was curled within the renal pelvis and the distal end was curled within the bladder. We continued to see drainage of copious amounts of urine through and around the left ureteral stent. She tolerated this procedure well with no complications. We will plan to do her surveillance cystoscopies for bladder cancer and stent changes every 3 to 6 months. These procedures will be done in the operating room.
[2020-05-12] MEDS: Acetaminophen 500 MG TAB PO (09:11)
== END 2020-05-12 09:42 | disposition home or self-care (01) ==
PROVIDERS: Visit Provider Urology
PROC: (CPT 52332; 2020-05-12 07:30)
DX: N13.30 Unspecified hydronephrosis (principal); C67.9 Malignant neoplasm of bladder, unspecified; E11.9 Type 2 diabetes mellitus without complications; K21.9 Gastro-esophageal reflux disease without esophagitis; D64.9 Anemia, unspecified
CPT/HCPCS: 52332; NC; 74420; J0690; J1100; J2405; J2704; Q9967

== ENCOUNTER → 2020-06-01 14:56 | Outpatient (BNVA) | payer MEDICARE, OTHER, SELFPAY | PROVIDERS: Visit Provider Nurse Practitioner Gerontology | DX: R53.81 Other malaise (principal); R10.31 Right lower quadrant pain; N39.0 Urinary tract infection, site not specified; B96.29 Other Escherichia coli [E. coli] as the cause of diseases classified elsewhere; R10.32 Left lower quadrant pain; R30.0 Dysuria; R35.0 Frequency of micturition; R39.15 Urgency of urination | CPT/HCPCS: 81003; 99214 ==

== ENCOUNTER 2020-06-01 16:18 | Outpatient (REF) | payer MEDICARE, OTHER, SELFPAY | END 2020-06-01 16:19 | disposition home or self-care (01) | LOC: LBN 16:18 | PROVIDERS: Visit Provider Nurse Practitioner Gerontology | DX: N39.0 Urinary tract infection, site not specified (principal); R53.81 Other malaise | CPT/HCPCS: 87077; 87086; 87186 ==

== ENCOUNTER 2020-06-03 13:20 | Inpatient (IN) | payer MEDICARE, OTHER, SELFPAY ==
[2020-06-03] VITALS (38 sets, daily range): BP systolic 82–123; BP diastolic 37–62; PULSE 77–115; RESP 15–27; TEMP 36.2–37.4; O2SAT 88–98
--- NOTE | 2020-06-03 13:36 | W.ED.GENAD ---
Discharge Plan Disposition Patient Disposition: [facility] INPATIENT Condition: Serious Discharge Details Clinical Impression: Frequent UTI, Acute kidney injury superimposed on CKD, Hyponatremia, Generalized weakness, Acute on chronic anemia Primary Care Provider: Diane Leblanc ED Provider: Claude Cartagena Home Meds and New Rx's Prescriptions: No Action Metamucil 3.4 gram/5.4 gram powder 2 tsp PO .Every Other Day RF: 0 (DME) lancets 28 gauge misc 1 ea Miscellaneous BID Qty: 300 RF: 4 (DME) Blood Glucose Test Strip 1 ea Miscellaneous BID Qty: 300 RF: 4 metformin 500 mg tablet 500 mg PO BID@0800,1700 Qty: 180 RF: 3 potassium chloride 20 mEq tablet extended release 20 meq PO DAILY Qty: 90 RF: 3 simvastatin [Zocor] 10 mg tablet 10 mg PO HS Qty: 90 RF: 4 nitrofurantoin monohyd/m-cryst [Macrobid] 100 mg capsule 100 mg PO Q12H 7 Days Qty: 14 RF: 0 calcium carbonate 500 MG tablet 1 tab.chew PO BID RF: 0 (DME) blood-glucose meter 1 EACH misc 1 ea Miscellaneous DAILY Qty: 1 RF: 0 Emergen-C 1,000 MG powder effervescent in packet 1 packet PO DAILY RF: 0 fluocinolone [Synalar] 120 GM ointment 1 applic Topical BID Qty: 1 RF: 2 acetaminophen 500 mg tablet 500 mg PO BID RF: 0 sertraline 50 mg tablet 50 mg PO DAILY Qty: 90 RF: 3 levothyroxine [Synthroid] 137 mcg tablet 137 mcg PO DAILY Qty: 90 RF: 4 pantoprazole 40 mg tablet,delayed release (DR/EC) 40 mg PO DAILY@0730 Qty: 90 RF: 3 metoprolol succinate 25 mg tablet extended release 24 hr 25 mg PO DAILY Qty: 90 RF: 0 glipizide 2.5 mg tablet extended release 24hr 2.5 mg PO BID Qty: 180 RF: 3 Medical Decision Making <Tamra Redmond DO - Last Filed: 06/03/20 16:13> 64-year-old female with a history of frequent UTIs w/ ureteral stent placed 2 weeks ago, rectal cancer, rectocutaneous fistula managed with chronic tubing, 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 Heart rate 110s. She is afebrile here. Blood pressure within normal limits. Patient appears generally fatigued but nontoxic. Abdomen is obese and minimally tender in suprapubic region. She has multiple rectal tube noted at sites of rectal fistula. There is no cellulitis noted to buttocks. Concern for resistant UTI or urosepsis. Will check screening labs, urinalysis, EKG, CT abdomen and pelvis to rule out Juma or abscess. Will give IV fluids and IV Tylenol and reassess. Labs reviewed. White blood cell count 14. Hemoglobin 7.6, decreased from 10.4 just over 1 month ago. Bedside guaiac negative. Lactate 1.6. Sodium 130. Bicarb 19. Anion gap 14. BUN 35, creatinine 2.9, increased from 1.6 over a month ago. GFR 16. Straight cath urine sample not yet obtained. CT changed from with IV contrast to a Noncon CT abdomen and pelvis. CT reviewed and notes hydronephrosis, questionable blocked L ureteral stent. Also notes gas near sites of rectal tubes/fistulas, question abscess. Exam noted skin on buttocks to be raw but no obvious cellulitis or nec fasc. Imaging reviewed with Dr. Mcmillan - unlikely to be blocked ureteral stent as this does not usually happen at 2 weeks, but rather 6 months. Stent looks in good place. He suspects hydronephrosis is chronic and KYLE due to prerenal, vomiting, UTI. Will push images to [facility] general surgery for recs on rectal fistula site to r/o abscess. Pt may be able to stay here and Dr. Mcmillan will see her tomorrow. If [facility] gen surgery would like pt to be transferred, likely will consult [facility] urology for management. A dose of zosyn ordered. Case endorsed to Dr. Cartagena to f/u w/ [facility] gen surg recs and final disposition. Medical Records Medical records reviewed: Yes I reviewed the patient's medical records. Lab Data Lab results reviewed: Yes I reviewed the patient's lab results. ECG Data Attestation: I personally reviewed and interpreted this ECG (s) as follows: Interpretation: Rate of 112, sinus, no acute ST elevation or depression. HI 121. QRS 82. QTc 414. <Claude Cartagena MD - Last Filed: 06/03/20 18:51> 1837 -- Care signed out by Dr. Redmond with plan to follow-up on conversation with [facility] surgical team who follows the patient. CT imaging has been sent for review. Dr. Mcmillan came to the emergency department and evaluated the patient. He does not believe the urinary stent is obstructed. He agrees with discussion with surgical team and notes that if they have no concerns she could be admitted to medicine and that he would continue to consult. I spoke with on-call colorectal surgeon at [facility], images were sent for him to review, discussed ED presentation and course and my concerns regarding air noted on CT, he notes that they are frequently common with fistulas and recommends oral antibiotic and outpatient follow-up. I explained that given her symptoms I think inpatient treatment is warranted and we will plan on admitting her here for continued IV antibiotics and reassessment. He was in agreement with this plan. I spoke with Dr. Bautista, discussed ED presentation and course, he will admit the patient. [facility] surgical consult requested. I will speak with the on-call general surgeon. I did reassess the patient. She is hemodynamically stable. She is lying comfortably in bed. She is in agreement with plan. 1845 --I spoke with Dr. Menon, on-call general surgeon, discussed ED presentation and course including diagnostics, she will provide consultation. Lab Data Lab results reviewed: Yes I reviewed the patient's lab results. Labs: 06/03/20 16:25 Blood Blood Culture - Pending 06/03/20 15:05 Urine - Reflex from Ua Urine Culture - Pending 06/03/20 14:20 Blood Blood Culture - Pending Laboratory Tests Range/Units 06/03/20 06/03/20 06/03/20 14:20 14:20 14:20 WBC (4.4-10.8) 10^3/uL 14.83 H RBC (3.93-5.22) 10^6/uL 2.76 L Hgb (11.2-15.7) g/dL 7.6 L Hct (36.0-46.0) % 24.3 L MCV (80-95) fL 88.0 MCH (27.0-33.0) pg 27.5 MCHC (32.0-36.0) % 31.3 L RDW (11.7-14.6) % 19.9 H Plt Count (130-400) 10^3/uL 279 MPV (8.0-11.0) fL 8.3 Immature Gran % 1.0 Neutrophils % 87.9 Lymphocytes % 3.4 Monocytes % 7.6 Eosinophils % 0.0 Basophils % 0.1 Nucleated RBC % % 0 Absolute Neutrophils (1.2-6.7) 10^3/uL 13.04 H Absolute Lymphocytes (1.2-3.4) 10^3/uL 0.50 L Absolute Monocytes (0.1-0.8) 10^3/uL 1.13 H Absolute Eosinophils (0.0-0.7) 10^3/uL 0.00 Absolute Basophils (0.0-0.2) 10^3/uL 0.01 VBG Lactate (0.6-1.4) mmol/L 1.6 H Sodium (136-145) mmol/L 130 L Potassium (3.5-5.1) mmol/L 4.3 Chloride (98-107) mmol/L 96 L Carbon Dioxide (21.0-32.0) mmol/L 19.4 L Anion Gap (3-11) mmol/L 14.6 H BUN (7-18) mg/dL 35 H Creatinine (0.55-1.02) mg/dL 2.9 H Estimated GFR/1.73 m2 (mL/min/1.73m2) 16.24 Glucose (74-106) mg/dL 110 H Calcium (8.5-10.1) mg/dL 9.3 Total Bilirubin (0.2-1.0) mg/dL 0.5 AST (15-37) U/L 18 ALT (14-59) U/L 21 Alkaline Phosphatase (46-116) U/L 103 Total Protein (6.4-8.2) g/dL 7.9 Albumin (3.4-5.0) g/dL 2.7 L Urine Color (Yellow) Urine Clarity (Clear) Urine pH (5-8) Ur Specific [place] (1.005-1.025) Urine Protein (Negative) mg/dL Urine Ketones (Negative) mg/dL Urine Blood (Negative) Urine Nitrite (Negative) Urine Bilirubin (Negative) Urine Urobilinogen (Up TO 0.2) EU/dL Ur Leukocyte Esterase (Negative) Urine RBC (0-2) HPF Urine WBC (0-5) HPF Ur Epithelial Cells (Negative) HPF Urine Crystals (Negative) HPF Urine Bacteria (Negative) HPF Urine Casts (Negative) LPF Urine Mucus (Negative) Urine Other (Negative) Ur Culture Indicated? Urine Glucose (Negative) mg/dL Range/Units 06/03/20 15:05 WBC (4.4-10.8) 10^3/uL RBC (3.93-5.22) 10^6/uL Hgb (11.2-15.7) g/dL Hct (36.0-46.0) % MCV (80-95) fL MCH (27.0-33.0) pg MCHC (32.0-36.0) % RDW (11.7-14.6) % Plt Count (130-400) 10^3/uL MPV (8.0-11.0) fL Immature Gran % Neutrophils % Lymphocytes % Monocytes % Eosinophils % Basophils % Nucleated RBC % % Absolute Neutrophils (1.2-6.7) 10^3/uL Absolute Lymphocytes (1.2-3.4) 10^3/uL Absolute Monocytes (0.1-0.8) 10^3/uL Absolute Eosinophils (0.0-0.7) 10^3/uL Absolute Basophils (0.0-0.2) 10^3/uL VBG Lactate (0.6-1.4) mmol/L Sodium (136-145) mmol/L Potassium (3.5-5.1) mmol/L Chloride (98-107) mmol/L Carbon Dioxide (21.0-32.0) mmol/L Anion Gap (3-11) mmol/L BUN (7-18) mg/dL Creatinine (0.55-1.02) mg/dL Estimated GFR/1.73 m2 (mL/min/1.73m2) Glucose (74-106) mg/dL Calcium (8.5-10.1) mg/dL Total Bilirubin (0.2-1.0) mg/dL AST (15-37) U/L ALT (14-59) U/L Alkaline Phosphatase (46-116) U/L Total Protein (6.4-8.2) g/dL Albumin (3.4-5.0) g/dL Urine Color (Yellow) Yellow Urine Clarity (Clear) Clear Urine pH (5-8) 6.0 Ur Specific [place] (1.005-1.025) 1.015 Urine Protein (Negative) mg/dL 100 H Urine Ketones (Negative) mg/dL Negative Urine Blood (Negative) Trace-lysed H Urine Nitrite (Negative) Negative Urine Bilirubin (Negative) Negative Urine Urobilinogen (Up TO 0.2) EU/dL 0.2 Ur Leukocyte Esterase (Negative) Small H Urine RBC (0-2) HPF 0-2 Urine WBC (0-5) HPF 3-5 Ur Epithelial Cells (Negative) HPF Rare Urine Crystals (Negative) HPF Negative Urine Bacteria (Negative) HPF Rare Urine Casts (Negative) LPF Negative Urine Mucus (Negative) Negative Urine Other (Negative) Negative Ur Culture Indicated? Yes Urine Glucose (Negative) mg/dL Negative HPI <Tamra Redmond DO - Last Filed: 06/03/20 16:13> General Mode of arrival: EMS. Date/Time Provider Initiated Documentation: 06/03/20 13:27. Limitations to Documentation: no limitations. Information obtained by: patient. HPI Narrative: Patient is a 64-year-old female with a history of frequent UTIs w/ L ureteral stent placed [address] Mcmillan, vesicorectal fistula, rectocutaneous fistula, rectal cancer, presents from home with dysuria, generalized weakness and fever for the past few days. Patient was started on Macrobid 2 days ago per urology for a UTI. Urine culture still pending. Patient states she has been taking her Macrobid as directed and states her last dose was today. She states she had a temp of 100.8 yesterday, last dose of Tylenol yesterday. She admits to vomiting a few times yesterday which is mainly bile. She has chronic indwelling rectal catheters for rectal fistulas which are managed by [facility] since 2018 and are permanent at this time. She denies chest pain, shortness of breath, hematuria. Related Data Home Medications Medication Instructions Recorded Confirmed calcium carbonate 1 tab.chew PO BID 06/29/12 06/03/20 blood-glucose meter #1 ea 10/04/14 06/01/20 Emergen-C 1 packet PO DAILY 07/26/15 06/03/20 fluocinolone [Synalar] 1 applic TOPICAL BID #1 script 03/28/16 06/03/20 psyllium husk 3.4 gram/5.4 gram 2 tsp PO .Every Other Day gm 12/01/18 06/03/20 oral powder blood sugar diagnostic #300 strip 01/13/19 06/01/20 lancets 28 gauge #300 each 01/13/19 06/01/20 acetaminophen 500 mg tablet 500 mg PO BID tab 05/14/19 06/03/20 sertraline 50 mg tablet 50 mg PO DAILY #90 tab 01/09/20 06/03/20 levothyroxine 137 mcg tablet 137 mcg PO DAILY #90 tab-cap 02/03/20 06/03/20 pantoprazole 40 mg tablet,delayed 40 mg PO DAILY@0730 #90 tab 03/23/20 06/03/20 release metoprolol succinate 25 mg 25 mg PO DAILY #90 tab 04/11/20 06/03/20 tablet,extended release 24 hr metformin 500 mg tablet 500 mg PO BID@0800,1700 #180 tab 05/17/20 06/03/20 potassium chloride 20 mEq 20 meq PO DAILY #90 tab 05/17/20 06/03/20 tablet,extended release simvastatin 10 mg tablet 10 mg PO HS #90 tab-cap 05/17/20 06/03/20 glipizide 2.5 mg tablet, extended 2.5 mg PO BID #180 tab 05/23/20 06/03/20 release 24 hr nitrofurantoin 100 mg PO Q12H 7 Days #14 cap 06/01/20 06/03/20 monohydrate/macrocrystals 100 mg capsule Previous Rx's Medication Instructions Recorded blood sugar diagnostic #300 strip 01/13/19 lancets 28 gauge #300 each 01/13/19 sertraline 50 mg tablet 50 mg PO DAILY #90 tab 01/09/20 levothyroxine 137 mcg tablet 137 mcg PO DAILY #90 tab-cap 02/03/20 pantoprazole 40 mg tablet,delayed 40 mg PO DAILY@0730 #90 tab 03/23/20 release metoprolol succinate 25 mg 25 mg PO DAILY #90 tab 04/11/20 tablet,extended release 24 hr metformin 500 mg tablet 500 mg PO BID@0800,1700 #180 tab 05/17/20 potassium chloride 20 mEq 20 meq PO DAILY #90 tab 05/17/20 tablet,extended release simvastatin 10 mg tablet 10 mg PO HS #90 tab-cap 05/17/20 glipizide 2.5 mg tablet, extended 2.5 mg PO BID #180 tab 05/23/20 release 24 hr nitrofurantoin 100 mg PO Q12H 7 Days #14 cap 06/01/20 monohydrate/macrocrystals 100 mg capsule Allergies Allergy/AdvReac Type Severity Reaction Status Date / Time copper Allergy Skin Rash Verified 06/03/20 13:51 lidocaine Allergy Itching-all Verified 06/03/20 14:04 the fabby codeine AdvReac tired Verified 06/03/20 14:04 latex AdvReac eczema Verified 06/03/20 14:04 flares up oxycodone AdvReac pt.unsure Verified 06/03/20 14:04 of reaction General SEMAJ: 3 Review of Systems <Tamra Redmond DO - Last Filed: 06/03/20 16:13> All systems reviewed & are unremarkable except as noted in HPI and below Constitutional Constitutional: Reports as per HPI, Denies chills, Reports fever(s), Reports lethargy and Reports weakness Eyes Eyes: Denies blurry vision ENT Ears, Nose, Mouth, and Throat: Denies dizziness, Denies sore throat and Denies throat swelling Cardiovascular Cardiovascular: Denies chest pain and Denies dyspnea Respiratory Respiratory: Denies cough and Denies dyspnea Gastrointestinal Gastrointestinal: Denies abdominal pain, Denies diarrhea and Reports vomiting Genitourinary Genitourinary: Denies hematuria and Reports dysuria Musculoskeletal Musculoskeletal: Denies back pain and Denies numbness Integumentary/Breasts Skin/Breast: Denies lesions and Denies rash Neurologic Neurologic: Denies dizziness, Denies localized weakness, Denies numbness and Reports weakness Allergic/Immunologic Allergic/Immunologic: Denies throat swelling PFSH <Tamra Redmond DO - Last Filed: 06/03/20 16:13> Medical History (Updated 06/03/20 @ 15:13 by Tamra Redmond DO) Abnormal glandular Papanicolaou smear of cervix (04/10/02) Acute kidney failure Per pt. unilateral kidney. 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 Advanced directives, counseling/discussion Anemia Bladder cancer f/u with dr. mcmillan Bladder incontinence Bowel incontinence Cancer related pain Debility Depression due to physical illness Diabetes mellitus (07/07/12) DVT prophylaxis Essential hypertension (01/02/13) Female infertility GERD (gastroesophageal reflux disease) Goals of care, counseling/discussion Graves' disease Hematuria Hyperlipidemia Hypertension Hypokalemia Hypomagnesemia Hypotension determined by examination Hypothyroidism (07/07/12) H/O GRAVES ophthalmopathy Increased BMI Mass of anus (11/08/17) 11/04/17 -Hyperplastic polyps of descending colon and rectum Invasive keratinizing squamous cell carcinoma -Tumor invading at least rectal mucosa and submucosa [facility] referral initiated by Dr. Wolff Obesity (BMI 30-39.9) Peripheral edema L ankle Rectal cancer Sepsis Shock circulatory Smoker Quit October 2017 - back to smoking several per day 11/27 SVT (supraventricular tachycardia) Per pt. r/t to graves disease. Pt. states she has not had any issues with this for a long time. She states she see's her PCP, to f/u UTI (urinary tract infection) Varicose veins of both lower extremities Surgical History Cervical Procedure (~1989) CRYOTHERAPY Cortical cataract of left eye Cortical cataract of right eye Endometrial Biopsy (~2002) History of bilateral ligation of fallopian tubes (02/01/14) History of gynecological procedure History of tonsillectomy and adenoidectomy Hx of cystoscopy Hx of removal of cyst right lower gluteus kurt Ligation of fallopian tube Nuclear sclerotic cataract of left eye Nuclear sclerotic cataract of right eye Posterior subcapsular age-related cataract of left eye Posterior subcapsular age-related cataract, right eye Family History Mother , of cirrhosis at age 68, likely from lifelong obesity Diabetes Essential hypertension Depression Heart disease Hyperlipidemia Stroke Liver cancer Father , dad aged 55 from AMI Heart disease Myocardial infarction Sister Hyperlipidemia Asthma Grandfather Neoplasm LUNG Grandmother Stroke Son Diabetes Asthma Daughter Anxiety Heart disease BORN WITH ENLARGED HEART Depression Bipolar Social History Smoking/Tobacco Use Status: Current every day Tobacco Type: cigarettes Tobacco: How many years used: 50 Quit status: not considering quitting Counseling given: counseling >3 minutes Smoking risk assessment performed?: Yes Alcohol Intake: never Drug use: Never Substance use type: does not use Counseling given: No Counseling provided: none Caregiver/Support person: No Household members: spouse and none Housing: apartment Do you need help understanding health information?: Rarely 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 Pets and animals: No Sexually active: No Do you think of yourself as: straight/heterosexual Current gender identity: decline to answer What is your relationship status?: How often do you talk on the phone with friends or family?: three or more times per week How often do you get together with friends or relatives?: decline to answer How often do you attend orthodoxy or restorationist services?: decline to answer Do you belong to any clubs or organized social groups?: decline to answer Panel score (0-1 are the most socially isolated patients): 2 What type of physical activity do you participate in: none Duration: decline to answer Frequency: decline to answer Miranda/Hoahaoism: Hoahaoism Special miranda needs: No Seatbelt use: always Helmet use: No Drive intox or ride w/intox transit bus driver: No Do you feel safe at home: Yes Do you feel safe in your relationship?: Yes Exam <Tamra Redmond DO - Last Filed: 06/03/20 16:13> Const General: cooperative and no acute distress Nutritional Appearance: obese morbidly obese Orientation: alert, awake and oriented x3 HENMT Head: normal to inspection Face and sinus: normal facial exam Eyes General: appearance normal, both eyes and all related structures EOM: EOM intact bilaterally Neck Neck: normal visual inspection and No submandibular swelling Lymphatic: no lymphadenopathy noted Chest Chest: normal inspection of the chest and no tenderness Resp Effort & Inspection: normal respiratory effort and able to speak in complete sentences Auscultation: clear to auscultation bilaterally Cardio Rate: regular rate Rhythm: regular rhythm GI Inspection: normal to inspection and obesity Palpation: soft, not firm, not rigid and nontender Auscultation: normal bowel sounds Rectal Exam - female: other ( ) Other: Multiple small 2 mm diameter blue plastic rectal tube noted extending on the skin. There is no surrounding cellulitis. Brown stool noted on pad and outside rectum. No nadira blood noted. Skin General skin exam: no rashes or lesions noted Neuro General: patient alert, patient awake and patient oriented x3 Cognition: normal cognition Speech: speech normal Motor: muscle tone normal throughout Sensory Exam: no sensory deficits noted Extrem General: normal to inspection, full ROM, capillary refill normal, no calf tenderness bilaterally and no edema Psych Appearance: grossly normal Mental Status: mental status grossly normal Speech and Movement: speech and movement normal Affect: normal affect Course <Tamra Redmond DO - Last Filed: 06/03/20 16:13> Lab/Test Results Lab/Test Results: 06/03/20 13:28 Blood Blood Culture - Pending 06/03/20 13:28 Blood Blood Culture - Pending Sign Out <Tamra Redmond DO - Last Filed: 06/03/20 16:13> Sign Out Data: Sign Out Comment: Follow-up on labs and imaging and final disposition. Suspect admission for potential failed outpatient treatment of UTI. Last updated by Tamra Redmond DO at 06/03/20 14:54
--- NOTE | 2020-06-03 13:45 | RT.EKG_ITS ---
APPROVED REPORT Exam: Resting ECG Patient Location: E HR:112 bpm ECG Measurements Heart Rate 112 AXIS MT 121 P -50 QRSd 82 QRS 45 QT 303 T 58 QTc 414 Conclusion Sinus or ectopic atrial tachycardia...P axis (-45,135), rate> 99 I have reviewed and interpreted ECG and agree with software generated interpretation.
[2020-06-03 14:29] LABS: Lactate 1.6 mmol/L (0.6-1.4)
[2020-06-03 14:32] LABS: Abs Immature Grans 0.15 10^3/uL (0.0-0.06); Absolute Basophil Count 0.01 10^3/uL (0.0-0.2); Absolute Monocyte Count 1.13 10^3/uL (0.1-0.8); Absolute Neutrophil Count 13.04 10^3/uL (1.2-6.7); Basophils % 0.1; HCT 24.3 % (36.0-46.0); HGB 7.6 g/dL (11.2-15.7); Lymphocytes % 3.4; MCH 27.5 pg (27.0-33.0); MCHC 31.3 % (32.0-36.0); MPV 8.3 fL (8.0-11.0); Monocytes % 7.6; Neutrophils % 87.9; Nucleated RBC 0 %; Platelet Count 279 10^3/uL (130-400); RBC 2.76 10^6/uL (3.93-5.22); RDW 19.9 % (11.7-14.6); RDW-SD 65.2 fL; WBC 14.83 10^3/uL (4.4-10.8)
[2020-06-03 14:51] LABS: ALT 21 U/L (14-59); AST 18 U/L (15-37); Albumin 2.7 g/dL (3.4-5.0); Alkaline Phosphatase 103 U/L (46-116); Anion Gap 14.6 mmol/L (3-11); BUN 35 mg/dL (7-18); Bilirubin, Total 0.5 mg/dL (0.2-1.0); CO2 19.4 mmol/L (21.0-32.0); CREATININE 2.9 mg/dL (0.55-1.02); Calcium 9.3 mg/dL (8.5-10.1); Chloride 96 mmol/L (98-107); Estimated GFR 16.24 (mL/min/1.73m2); Glucose 110 mg/dL (74-106); Potassium 4.3 mmol/L (3.5-5.1); Sodium 130 mmol/L (136-145); Total Protein 7.9 g/dL (6.4-8.2)
[2020-06-03] MEDS: Lidocaine 2% Jelly 6 ML SYR (14:52)
[2020-06-03] MEDS: Normal Saline 500 ML IV (15:09)
[2020-06-03 15:11] LABS: Bilirubin Negative (Negative); Blood Trace-lysed (Negative); Clarity Clear (Clear); Glucose Negative (Negative); Ketones Negative (Negative); Leukocyte Esterase Small (Negative); Nitrite Negative (Negative); Specific Gravity 1.015 (1.005-1.025); Urobilinogen 0.2 EU/dL (Up TO 0.2)
--- NOTE | 2020-06-03 15:28 | DI.CT_ITS ---
EXAM: CT ABDOMEN PELVIS WO INDICATION: dysuria, weakness, h/o chronic UTI. COMPARISON: CT CT ABDOMEN PELVIS W from 11/27/[address] ABDOMEN PELVIS W from 11/27/2019 TECHNIQUE: CT examination was performed without contrast administration. FINDINGS: Images obtained through the lung bases are unremarkable. The liver is mildly enlarged and has somewhat nodular contour raising the possibility of cirrhosis. Spleen is mildly enlarged. Pancreas appears atrophic. Gallbladder and bile ducts are CT normal. Abdominal aorta is of normal diameter. No significant abdominal wall hernia. There are few mildly enlarged lymph nodes adjacent to the left kidney. No other significant abdominal or pelvic adenopathy. This is a nonspecific finding which coul d relate to left urinary tract infection. Possibility of neoplastic disease not excluded on the basis of this examination alone. Adrenals appear normal bilaterally. The right kidney is markedly atrophic and appears to contain at least 1 cyst and some peripheral calc ifications which are nonspecific. Left kidney is enlarged and appears hydronephrotic. There is a le ft ureteral stent in position. Urinary bladder has a thickened wall, cystitis versus chronic bladder outlet obstruction. There is catheter in place in the inferior pelvis as noted on prior CT of November 2019. There is i ncreased gas in the soft tissues adjacent to this catheter since the prior examination, an additional catheter is now present which was not previously seen. Please correlate clinically regarding possib le incompletely drained abscess/surgical bed. IMPRESSION: Left hydronephrosis with ureteral stent in place, presumed malfunctioning stent. Mild adenopathy seen in retroperitoneal nodes adjacent to left kidney, nonspecific. Increased gas present in inferior pelvis associated with 2 apparent drainage catheters, please correl ate with surgical history. Possibility of recurrent or worsening abscess not excluded. Bladder wall thickening consistent with cystitis Nodular hepatic contour, question cirrhosis, mild hepatosplenomegaly noted. RADIATION DOSE DELIVERED: 1,038.49mGy.cm DLP 1,038.49mGy.cm Total DLP RADIATION OPTIMIZATION: All CT scans at this facility use at least one of these dose optimization te chniques: automated exposure control; mA and/or kV adjustment per patient size (includes targeted exa ms where dose is matched to clinical indication); or iterative reconstruction.
[2020-06-03 15:44] LABS: Epithelial Cells Rare HPF (Negative); RBC 0-2 HPF (0-2)
[2020-06-03] MEDS: ACETAMINOPHEN 1,000 MG/100 ML BTL 400 MG IVPB (15:44)
[2020-06-03 15:45] LABS: Bacteria Rare HPF (Negative); C & S Indicated? Yes; Casts Negative LPF (Negative); Crystals Negative HPF (Negative); Mucus Negative (Negative); Other Cells Negative (Negative)
[2020-06-03] MEDS: PIPERACILLIN/TAZO 3.375 GM in Normal Saline 50 ML IVPB (16:45)
[2020-06-03 19:17] LABS: Source Nasal/Nares
--- NOTE | 2020-06-03 19:27 | W.SURGCON ---
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 from bleeding from proctitis as well as chronic Dx feels better after receiving blood IV Iron (6) Bowel incontinence: Status: Acute (7) Bladder incontinence: Status: Acute (8) Gastroesophageal reflux disease: Status: Chronic (9) Radiation proctitis: Status: Acute (10) 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: Status: Acute (11) Acquired anal stenosis: Status: Acute (12) Hypothyroidism: Status: Chronic (13) Hyperlipidemia: Status: Chronic (14) Essential hypertension: Status: Chronic (15) Diabetes mellitus: Status: Chronic Qualifiers: Diabetes mellitus complication detail: with other kidney complication Diabetes mellitus complication status: with kidney complications Diabetes mellitus intermission coordinator insulin use: without intermission coordinator use Diabetes mellitus type: type 2 Qualified Code(s): E11.29 - Type 2 diabetes mellitus with other diabetic kidney complication (16) Smoker: Status: Resolved (17) SVT (supraventricular tachycardia): Status: Resolved (18) Acute kidney failure: Status: Acute Qualifiers: Acute renal failure type: unspecified Qualified Code(s): N17.9 - Acute kidney failure, unspecified (19) Chronic back pain: Status: Acute (20) Colovaginal fistula: Status: Acute (21) Peripheral edema: Status: Resolved (22) Cancer related pain: Status: Chronic (23) E. coli UTI: Status: Acute Assessment and plan: Recurrent/persistent E. coli UTI. Possible colovesical fistula? 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 severe atrophy of vaginal tissues recent stent change incont of stool and urine so has high risk factors for recurrent E coli UTI from this source as well. urine cult sent by ED renae vuong/eulalia Mcmillan. No signs of fistula on recent cysto last EUA was [place] [facility] [place]. 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 Cont zosyn and supportive care if worsens- transfers to [facility] for IR drainage. Pt is not a surgical candidate no signs of acute abscess or infections or bleeding. severe vaginal atrophy supportive care s/p XRT for anal cancer and development of colo-vag fisutula. followed by onc and cr for chronic care ? development of colo-vesical fistula will d/w hipolito no need for any acute surgical interventions 60 mins spent reviewing pt records from [facility] and doing PE and discussing case w/ Stranathan and documentation will follow peropherally. History of Present Illness Narrative: Pt came into the ED tonight c/o increase pain and fevers, weakness. WG was originally Dx w/ squamous cell anal cancer in 2018. She was treated w/ XRT and mitomycin. She has developed chronic radiation procotitis, stenosis, and a colo-vaginal fistula. 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 She has x2 setons in the anus from chronic abscess/fistulous tracts. She has severe anal stenosis and problem w/ chronic diarrhea and control ofher bowels. these were bx and found to not be cancerous. I did review all her notes from Dr. Verduzco from colorectal cancer at [facility]. Kenny Mcmillan [birth year] is a 64-year-old woman who has a history of anal cancer. She was treated with combinations of chemotherapy, surgery and radiation therapy. We initially saw her when she had gross hematuria. We found that she had a noninvasive urothelial cell carcinoma of the bladder. She was treated with transurethral resection and intravesical chemotherapy. She then developed left hydronephrosis presumably due to a ureteral stricture. On ureteroscopy, no tumor or intraureteral mass was identified. We attempted to balloon dilate the area and subsequently removed her stent. She had persistent hydronephrosis and obstruction on nuclear renogram. She presents for replacement of her ureteral stent. She was seen in Uro clinic 06/02 and found to have recurrent E coli UTI. MPRESSION: Left hydronephrosis with ureteral stent in place, presumed malfunctioning stent. Mild adenopathy seen in retroperitoneal nodes adjacent to left kidney, nonspecific. Increased gas present in inferior pelvis associated with 2 apparent drainage catheters, please correlate with surgical history. Possibility of recurrent or worsening abscess not excluded. Bladder wall thickening consistent with cystitis Nodular hepatic contour, question cirrhosis, mild hepatosplenomegaly noted. Consults Consult date: 06/03/20 Requesting physician: Claude Cartagena Review of Systems All systems reviewed & are unremarkable except as noted in HPI and below [facility] Medical History (Updated 06/05/20 @ 13:52 by Rehan Cleaning) Abnormal glandular Papanicolaou smear of cervix (04/10/02) Acute kidney failure Per pt. unilateral kidney. 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 Advanced directives, counseling/discussion Anemia Bladder cancer f/u with dr. mcmillan Bladder incontinence Bowel incontinence Cancer related pain Debility Depression due to physical illness Diabetes mellitus (07/07/12) DVT prophylaxis Essential hypertension (01/02/13) Female infertility GERD (gastroesophageal reflux disease) Goals of care, counseling/discussion Graves' disease Hematuria Hyperlipidemia Hypertension Hypokalemia Hypomagnesemia Hypotension determined by examination Hypothyroidism (07/07/12) H/O GRAVES ophthalmopathy Increased BMI Mass of anus (11/08/17) 11/04/17 -Hyperplastic polyps of descending colon and rectum Invasive keratinizing squamous cell carcinoma -Tumor invading at least rectal mucosa and submucosa [facility] referral initiated by Dr. Wolff Obesity (BMI 30-39.9) Peripheral edema L ankle Rectal cancer Sepsis Shock circulatory Smoker Quit October 2017 - back to smoking several per day 11/27 SVT (supraventricular tachycardia) Per pt. r/t to graves disease. Pt. states she has not had any issues with this for a long time. She states she see's her PCP, to f/u UTI (urinary tract infection) Varicose veins of both lower extremities Surgical History Cervical Procedure (~1989) CRYOTHERAPY Cortical cataract of left eye Cortical cataract of right eye Endometrial Biopsy (~2002) History of bilateral ligation of fallopian tubes (02/01/14) History of gynecological procedure History of tonsillectomy and adenoidectomy Hx of cystoscopy Hx of removal of cyst right lower gluteus kurt Ligation of fallopian tube Nuclear sclerotic cataract of left eye Nuclear sclerotic cataract of right eye Posterior subcapsular age-related cataract of left eye Posterior subcapsular age-related cataract, right eye Family History Mother , of cirrhosis at age 68, likely from lifelong obesity Diabetes Essential hypertension Depression Heart disease Hyperlipidemia Stroke Liver cancer Father , dad aged 55 from AMI Heart disease Myocardial infarction Sister Hyperlipidemia Asthma Grandfather Neoplasm LUNG Grandmother Stroke Son Diabetes Asthma Daughter Anxiety Heart disease BORN WITH ENLARGED HEART Depression Bipolar Social History Smoking/Tobacco Use Status: Current every day Tobacco Type: cigarettes Tobacco: How many years used: 50 Quit status: not considering quitting Counseling given: counseling >3 minutes Smoking risk assessment performed?: Yes Alcohol Intake: never Drug use: Never Substance use type: does not use Counseling given: No Counseling provided: none Caregiver/Support person: No Household members: spouse and none Housing: apartment Do you need help understanding health information?: Rarely 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 Pets and animals: No Sexually active: No Do you think of yourself as: straight/heterosexual Current gender identity: decline to answer What is your relationship status?: How often do you talk on the phone with friends or family?: three or more times per week How often do you get together with friends or relatives?: decline to answer How often do you attend holiness or zoroastrianism services?: decline to answer Do you belong to any clubs or organized social groups?: decline to answer Panel score (0-1 are the most socially isolated patients): 2 What type of physical activity do you participate in: none Duration: decline to answer Frequency: decline to answer Miranda/Bahai: Mu-Ism Special miranda needs: No Seatbelt use: always Helmet use: No Drive intox or ride w/intox milk driver: No Do you feel safe at home: Yes Do you feel safe in your relationship?: Yes Exam Const General: cooperative, no acute distress, anxious, disheveled, frail appearing and other (chronically ill) Nutritional Appearance: malnourished and overweight Resp Effort & Inspection: normal respiratory effort and able to speak in complete sentences Auscultation: clear to auscultation bilaterally GI Inspection: large pannus Palpation: soft, no hernias, no masses and No ascites Auscultation: normal bowel sounds Rectal Exam - female: abnormal sphincter tone and abnormal stool Other: chronic supra[pubic pain that is no worse than usual. no redness/no masses. change to skin from chronic XRT. NO bleeding or purulent drainage. Setons in place. no signs of acute abscess/infections. no peritonitis. External Female Exam: abnormal external appearance (atrophy of tissues) Speculum Exam - Vagina: normal vaginal discharge and vagina atrophic Extrem General: no clubbing, cyanosis or edema Other: pt had very poor muscle tone and had to be helped to lift her legs onto the bed and position her self in bed. Results Last Vital Signs Temp 37.4 C 06/03/20 15:44 Pulse 78 06/03/20 18:31 Resp 18 06/03/20 18:40 BP 94/46 L 06/03/20 18:31 Pulse Ox 97 06/03/20 18:40 Labs Result diagrams: 06/05/20 05:30 06/05/20 05:30 Labs: Laboratory Results - last 24 hr 06/03/20 06/03/20 06/03/20 14:20 14:20 14:20 WBC 14.83 H RBC 2.76 L Hgb 7.6 L Hct 24.3 L MCV 88.0 MCH 27.5 MCHC 31.3 L RDW 19.9 H Plt Count 279 MPV 8.3 Immature Gran % 1.0 Neutrophils % 87.9 Lymphocytes % 3.4 Monocytes % 7.6 Eosinophils % 0.0 Basophils % 0.1 Nucleated RBC % 0 Absolute Neutrophils 13.04 H Absolute Lymphocytes 0.50 L Absolute Monocytes 1.13 H Absolute Eosinophils 0.00 Absolute Basophils 0.01 VBG Lactate 1.6 H Sodium 130 L Potassium 4.3 Chloride 96 L Carbon Dioxide 19.4 L Anion Gap 14.6 H BUN 35 H Creatinine 2.9 H Estimated GFR/1.73 m2 16.24 Glucose 110 H Calcium 9.3 Total Bilirubin 0.5 AST 18 ALT 21 Alkaline Phosphatase 103 Total Protein 7.9 Albumin 2.7 L Urine Color Urine Clarity Urine pH Ur Specific [place] Urine Protein Urine Ketones Urine Blood Urine Nitrite Urine Bilirubin Urine Urobilinogen Ur Leukocyte Esterase Urine RBC Urine WBC Ur Epithelial Cells Urine Crystals Urine Bacteria Urine Casts Urine Mucus Urine Other Ur Culture Indicated? Urine Glucose COVID-19 Source 06/03/20 06/03/20 15:05 19:00 WBC RBC Hgb Hct MCV MCH MCHC RDW Plt Count MPV Immature Gran % Neutrophils % Lymphocytes % Monocytes % Eosinophils % Basophils % Nucleated RBC % Absolute Neutrophils Absolute Lymphocytes Absolute Monocytes Absolute Eosinophils Absolute Basophils VBG Lactate Sodium Potassium Chloride Carbon Dioxide Anion Gap BUN Creatinine Estimated GFR/1.73 m2 Glucose Calcium Total Bilirubin AST ALT Alkaline Phosphatase Total Protein Albumin Urine Color Yellow Urine Clarity Clear Urine pH 6.0 Ur Specific [place] 1.015 Urine Protein 100 H Urine Ketones Negative Urine Blood Trace-lysed H Urine Nitrite Negative Urine Bilirubin Negative Urine Urobilinogen 0.2 Ur Leukocyte Esterase Small H Urine RBC 0-2 Urine WBC 3-5 Ur Epithelial Cells Rare Urine Crystals Negative Urine Bacteria Rare Urine Casts Negative Urine Mucus Negative Urine Other Negative Ur Culture Indicated? Yes Urine Glucose Negative COVID-19 Source Nasal/nares
--- NOTE | 2020-06-03 21:41 | HPE_ITS ---
Date of service: 06/03/20 Time of Service: 21:41 Assessment and Plan Assessment and plan (1) E. coli UTI: Status: Acute Assessment and plan: Continue IV Zosyn at renally adjusted dosing of 3.375 g IV every 12 hours given over 4 hours per each dose. Continue IV fluids along with analgesics and antiemetics. Consult with urology regarding her complicated UTI and chronic left hydronephrosis and ureteral stenosis. (2) Acute kidney injury superimposed on CKD: Status: Acute Assessment and plan: Give IV fluid hydration and monitor urine output with placement of Dias catheter and monitoring of her BMP (3) Acute on chronic anemia: Status: Acute Assessment and plan: Type and screen tonight repeat her CBC in the morning recheck iron studies in the morning. If hemoglobin drops below 7 g we will transfuse her to hemoglobin above 8 g. Patient is indicated willingness to receive blood transfusion if need be. If her hemoglobin remains between 7 and 8 g and her iron studies confirm a chronic iron deficiency anemia I will start her on iron infusions. cont. her PPI (protonix) (4) Colovaginal fistula: Status: Acute Assessment and plan: Consult with surgery regarding the pelvic gas collection as to whether or not this is technical services representative of an abscess. Is unclear whether this is going to heal up with just antibiotics and her seton drains. (5) Radiation proctitis: Status: Acute Assessment and plan: consult w/ surgery regarding treatment; given her rectovaginal fistula, steroid enemas would be contraindicated. (6) Generalized weakness: Status: Acute Assessment and plan: probably multifactorial including her chronic anemia and recurrent UTI. This may improve w/ treatment of her anemia and infection. (7) Essential hypertension: Status: Chronic Assessment and plan: I have reordered her lopressor but her BP may not allow for this as she is mildly hypotensive. (8) Diabetes mellitus: Status: Chronic Assessment and plan: hold metformin and glipizide; cover w/ novolog sliding scale and monitor glucose AC/HS Qualifiers: Diabetes mellitus complication detail: with other kidney complication Diabetes mellitus complication status: with kidney complications Diabetes mellitus termination clerk insulin use: without termination clerk use Diabetes mellitus type: type 2 Qualified Code(s): E11.29 - Type 2 diabetes mellitus with other diabetic kidney complication (9) Bladder cancer: Status: Chronic Qualifiers: Bladder location: unspecified site Qualified Code(s): C67.9 - Malignant neoplasm of bladder, unspecified (10) Hydronephrosis, left: Status: Chronic Assessment and plan: consult w/ urology History of Present Illness History of Present Illness Chief Complaint: Generalized weakness, fever, UTI Narrative: 64-year-old female with a complicated history including 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 Patient is followed by Dr. Flakito Verduzco her oncologist as well as Dr. Susan Cagle her general surgeon at [facility]. 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 She has also had complications from radiation treatment including radiation proctitis causing chronic rectal bleeding and a chronic iron deficiency anemia as well as development of left ureteral stricture and chronic left hydronephrosis requiring an indwelling ureteral stent which was most recently changed by Dr. Chris Mcmillan 04/14/2020. She was diagnosed with high-grade noninvasive urothelial cell carcinoma which she was hospitalized with hematuria and underwent cystoscopy by Dr. Chris Mcmillan in November 2018. This has been treated with transurethral bladder resection and gemcitabine. And has required repeated cystoscopy and fulguration and instillation of mitomycin-C. She recently presented to the urology clinic June 01, 2020 with complaints of dysuria and hematuria and urinalysis was positive for moderate blood and leukocyte Estrace and she was started on a course of nitrofurantoin 100 mg twice daily x7 days and the urine culture was sent off and is since returned positive for greater than 100,000 colonies of E. coli with 2 different colonies of E. coli and less than 10,000 colonies of mixed gram-positive tamia. Sensitivity is pending at this time. Today she presented to emergency department continued dysuria including difficulty voiding as well as low-grade fevers of 101 degrees and chills and nausea and vomiting. Evaluation in the emergency department clued routine labs and a CT scan of her abdomen pelvis. She is found to have a leukocytosis of 14,000 and a chronic anemia that is worsening with a hemoglobin 7.6 g hematocrit 24%. Has worsening azotemia in the setting of known chronic kidney disease. BUN is elevated 35 creatinine 2.9 whereas her baseline level is 16 and creatinine of 0.97 however her most recent levels were 22 and 1.6 as of 04/22/2020. She has an atrophic right kidney in addition to hydronephrosis of her left kidney and left ureteral stenosis. CT of her abdomen and pelvis w/out contrast demonstrated the known left hydronephrosis and left ureteral stent from the left renal pelvis to the bladder as well as the known Seton drains in the pelvis and gas in the pelvis in the tissues adjacent to one of the Seton catheters. Blood and urine cultures were obtained and the patient was started on Zosyn empirically. Dr. Redmond consulted w/ Dr. Mcmillan who saw the patient in the emergency room and reviewed the CT scan and does not think that the left ureteral stent is obstructed (contrary to the impression of the radiologist's reading) and Dr. Redmond and Dr. Cartagena consulted / [facility] surgery service who reviewed the CT findings and did not feel that the CT warranted transfer and urgent surgical evaluation/intervention. Dr. Cartagena consulted w/ our surgeon, Dr. Menon who evaluated the patient and reviewed her CT findings, see her note for details. At present the patient will be admitted to [facility] hospitalist service for treatment of complicated UTI and to rule out potential pelvic abscess from her rectovaginal and rectoischial fistulas. Review of Systems All systems reviewed & are unremarkable except as noted in HPI and below [facility] Medical History (Updated 06/04/20 @ 00:11 by Rehan Cleaning) Abnormal glandular Papanicolaou smear of cervix (04/10/02) Acute kidney failure Per pt. unilateral kidney. 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 Advanced directives, counseling/discussion Anemia Bladder cancer f/u with dr. mcmillan Bladder incontinence Bowel incontinence Cancer related pain Debility Depression due to physical illness Diabetes mellitus (07/07/12) DVT prophylaxis Essential hypertension (01/02/13) Female infertility GERD (gastroesophageal reflux disease) Goals of care, counseling/discussion Graves' disease Hematuria Hyperlipidemia Hypertension Hypokalemia Hypomagnesemia Hypotension determined by examination Hypothyroidism (07/07/12) H/O GRAVES ophthalmopathy Increased BMI Mass of anus (11/08/17) 11/04/17 -Hyperplastic polyps of descending colon and rectum Invasive keratinizing squamous cell carcinoma -Tumor invading at least rectal mucosa and submucosa [facility] referral initiated by Dr. Wolff Obesity (BMI 30-39.9) Peripheral edema L ankle Rectal cancer Sepsis Shock circulatory Smoker Quit October 2017 - back to smoking several per day 11/27 SVT (supraventricular tachycardia) Per pt. r/t to graves disease. Pt. states she has not had any issues with this for a long time. She states she see's her PCP, to f/u UTI (urinary tract infection) Varicose veins of both lower extremities Surgical History Cervical Procedure (~1989) CRYOTHERAPY Cortical cataract of left eye Cortical cataract of right eye Endometrial Biopsy (~2002) History of bilateral ligation of fallopian tubes (02/01/14) History of gynecological procedure History of tonsillectomy and adenoidectomy Hx of cystoscopy Hx of removal of cyst right lower gluteus kurt Ligation of fallopian tube Nuclear sclerotic cataract of left eye Nuclear sclerotic cataract of right eye Posterior subcapsular age-related cataract of left eye Posterior subcapsular age-related cataract, right eye Family History Mother , of cirrhosis at age 68, likely from lifelong obesity Diabetes Essential hypertension Depression Heart disease Hyperlipidemia Stroke Liver cancer Father , dad aged 55 from AMI Heart disease Myocardial infarction Sister Hyperlipidemia Asthma Grandfather Neoplasm LUNG Grandmother Stroke Son Diabetes Asthma Daughter Anxiety Heart disease BORN WITH ENLARGED HEART Depression Bipolar Social History Smoking/Tobacco Use Status: Current every day Tobacco Type: cigarettes Tobacco: How many years used: 50 Quit status: not considering quitting Counseling given: counseling >3 minutes Smoking risk assessment performed?: Yes Alcohol Intake: never Drug use: Never Substance use type: does not use Counseling given: No Counseling provided: none Caregiver/Support person: No Household members: spouse and none Housing: apartment Do you need help understanding health information?: Rarely 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: [employer]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[employer] - 12/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 medical leave Pets and animals: No Sexually active: No Do you think of yourself as: straight/heterosexual Current gender identity: decline to answer What is your relationship status?: How often do you talk on the phone with friends or family?: three or more times per week How often do you get together with friends or relatives?: decline to answer How often do you attend latter day or zoroastrianism services?: decline to answer Do you belong to any clubs or organized social groups?: decline to answer Panel score (0-1 are the most socially isolated patients): 2 What type of physical activity do you participate in: none Duration: decline to answer Frequency: decline to answer Miranda/Gnosticist: Catholic Special miranda needs: No Seatbelt use: always Helmet use: No Drive intox or ride w/intox log truck driver: No Do you feel safe at home: Yes Do you feel safe in your relationship?: Yes Meds Home Medications and Allergies Allergies Allergy/AdvReac Type Severity Reaction Status Date / Time copper Allergy Skin Rash Verified 06/03/20 13:51 lidocaine Allergy Itching-all Verified 06/03/20 14:04 the fabby codeine AdvReac tired Verified 06/03/20 14:04 latex AdvReac eczema Verified 06/03/20 14:04 flares up oxycodone AdvReac pt.unsure Verified 06/03/20 14:04 of reaction Home Medications Medication Instructions Recorded Confirmed Type calcium carbonate 1 tab.chew PO BID 06/29/12 06/03/20 History blood-glucose meter #1 ea 10/04/14 06/01/20 History Emergen-C 1 packet PO DAILY 07/26/15 06/03/20 History fluocinolone [Synalar] 1 applic TOPICAL BID #1 script 03/28/16 06/03/20 History psyllium husk 3.4 gram/5.4 gram 2 tsp PO .Every Other Day gm 12/01/18 06/03/20 History oral powder blood sugar diagnostic #300 strip 01/13/19 06/01/20 Rx lancets 28 gauge #300 each 01/13/19 06/01/20 Rx acetaminophen 500 mg tablet 500 mg PO BID tab 05/14/19 06/03/20 History sertraline 50 mg tablet 50 mg PO DAILY #90 tab 01/09/20 06/03/20 Rx levothyroxine 137 mcg tablet 137 mcg PO DAILY #90 tab-cap 02/03/20 06/03/20 Rx pantoprazole 40 mg tablet,delayed 40 mg PO DAILY@0730 #90 tab 03/23/20 06/03/20 Rx release metoprolol succinate 25 mg 25 mg PO DAILY #90 tab 04/11/20 06/03/20 Rx tablet,extended release 24 hr metformin 500 mg tablet 500 mg PO BID@0800,1700 #180 tab 05/17/20 06/03/20 Rx potassium chloride 20 mEq 20 meq PO DAILY #90 tab 05/17/20 06/03/20 Rx tablet,extended release simvastatin 10 mg tablet 10 mg PO HS #90 tab-cap 05/17/20 06/03/20 Rx glipizide 2.5 mg tablet, extended 2.5 mg PO BID #180 tab 05/23/20 06/03/20 Rx release 24 hr nitrofurantoin 100 mg PO Q12H 7 Days #14 cap 06/01/20 06/03/20 Rx monohydrate/macrocrystals 100 mg capsule Exam Narrative Exam Narrative: Obese female who appears to be very pale lying in bed having rigors however she is alert and oriented person place time circumstance. HEENT is remarkable for dry mucous membranes as well as pale conjunctiva and pale skin. Neck is supple nontender normal carotid pulses no JVD Lungs are clear to auscultation Heart regular rate and rhythm Abdomen is obese soft nondistended without guarding or rebound tenderness no palpable masses no bruits Perianal area was examined skin is moist with some mucus drainage around perire ctal ischial fistula that has a Seton drain. The skin around this area is nontender to palpation without erythema Lower extremities without peripheral cyanosis or edema no calf tenderness or swelling. Neuro exam grossly intact no focal deficits Results Labs Result diagrams: 06/03/20 14:20 06/03/20 14:20 Labs: Laboratory Results - last 24 hr 06/03/20 06/03/20 06/03/20 14:20 14:20 14:20 WBC 14.83 H RBC 2.76 L Hgb 7.6 L Hct 24.3 L MCV 88.0 MCH 27.5 MCHC 31.3 L RDW 19.9 H Plt Count 279 MPV 8.3 Immature Gran % 1.0 Neutrophils % 87.9 Lymphocytes % 3.4 Monocytes % 7.6 Eosinophils % 0.0 Basophils % 0.1 Nucleated RBC % 0 Absolute Neutrophils 13.04 H Absolute Lymphocytes 0.50 L Absolute Monocytes 1.13 H Absolute Eosinophils 0.00 Absolute Basophils 0.01 VBG Lactate 1.6 H Sodium 130 L Potassium 4.3 Chloride 96 L Carbon Dioxide 19.4 L Anion Gap 14.6 H BUN 35 H Creatinine 2.9 H Estimated GFR/1.73 m2 16.24 Glucose 110 H Calcium 9.3 Total Bilirubin 0.5 AST 18 ALT 21 Alkaline Phosphatase 103 Total Protein 7.9 Albumin 2.7 L Urine Color Urine Clarity Urine pH Ur Specific [place] Urine Protein Urine Ketones Urine Blood Urine Nitrite Urine Bilirubin Urine Urobilinogen Ur Leukocyte Esterase Urine RBC Urine WBC Ur Epithelial Cells Urine Crystals Urine Bacteria Urine Casts Urine Mucus Urine Other Ur Culture Indicated? Urine Glucose COVID-19 Source 06/03/20 06/03/20 15:05 19:25 WBC RBC Hgb Hct MCV MCH MCHC RDW Plt Count MPV Immature Gran % Neutrophils % Lymphocytes % Monocytes % Eosinophils % Basophils % Nucleated RBC % Absolute Neutrophils Absolute Lymphocytes Absolute Monocytes Absolute Eosinophils Absolute Basophils VBG Lactate Sodium Potassium Chloride Carbon Dioxide Anion Gap BUN Creatinine Estimated GFR/1.73 m2 Glucose Calcium Total Bilirubin AST ALT Alkaline Phosphatase Total Protein Albumin Urine Color Yellow Urine Clarity Clear Urine pH 6.0 Ur Specific [place] 1.015 Urine Protein 100 H Urine Ketones Negative Urine Blood Trace-lysed H Urine Nitrite Negative Urine Bilirubin Negative Urine Urobilinogen 0.2 Ur Leukocyte Esterase Small H Urine RBC 0-2 Urine WBC 3-5 Ur Epithelial Cells Rare Urine Crystals Negative Urine Bacteria Rare Urine Casts Negative Urine Mucus Negative Urine Other Negative Ur Culture Indicated? Yes Urine Glucose Negative COVID-19 Source Nasal/nares Last Vital Signs Temp 37.4 C 06/03/20 15:44 Pulse 89 06/03/20 20:47 Resp 18 06/03/20 20:47 BP 123/50 L 06/03/20 20:47 Pulse Ox 97 06/03/20 20:47 COVID-19 Screening Have you, or household traveled for leisure in last 14 days?: No Had IN PERSON contact w/suspected or confirmed C-19 person: No
[2020-06-03 22:47] LABS: Lactate 0.8 mmol/L (0.6-1.4)
[2020-06-03 23:15] LABS: C-Reactive Protein > 25.00 mg/dL (0.0-0.3)
[2020-06-03] MEDS: Lactated Ringers 1,000 ML 150 ML IV (23:22)
[2020-06-03 23:24] LABS: Procalcitonin 5.8 ng/mL
[2020-06-04] VITALS (16 sets, daily range): BP systolic 82–116; BP diastolic 48–68; PULSE 71–93; RESP 14–20; TEMP 36.2–39.1; O2SAT 94–99
[2020-06-04] MEDS: Acetaminophen 325 MG TAB PO ×4 (00:42→20:53)
[2020-06-04] MEDS: Normal Saline Flush 10 ML SYR IVP ×3 (04:24→20:36)
[2020-06-04] MEDS: PIPERACILLIN/TAZO 3.375 GM in Normal Saline 50 ML IVPB ×2 (04:24→16:49)
[2020-06-04] MEDS: Normal Saline 500 ML IV (04:26)
[2020-06-04] MEDS: Lactated Ringers 1,000 ML 150 ML IV ×2 (05:37→12:28)
[2020-06-04 07:13] LABS: Abs Immature Grans 0.16 10^3/uL (0.0-0.06); Absolute Basophil Count 0.02 10^3/uL (0.0-0.2); Absolute Eosinophil Count 0.01 10^3/uL (0.0-0.7); Absolute Lymphocyte Count 0.77 10^3/uL (1.2-3.4); Absolute Monocyte Count 0.78 10^3/uL (0.1-0.8); Absolute Neutrophil Count 8.38 10^3/uL (1.2-6.7); Basophils % 0.2; Eosinophils % 0.1; HCT 21.7 % (36.0-46.0); Immature Grans % 1.6; Lymphocytes % 7.6; MCH 26.9 pg (27.0-33.0); MCHC 30.4 % (32.0-36.0); MCV 88.6 fL (80-95); MPV 8.2 fL (8.0-11.0); Monocytes % 7.7; Neutrophils % 82.8; Nucleated RBC 0 %; Platelet Count 235 10^3/uL (130-400); RBC 2.45 10^6/uL (3.93-5.22); RDW 19.9 % (11.7-14.6); RDW-SD 65.8 fL; WBC 10.12 10^3/uL (4.4-10.8)
[2020-06-04 07:21] LABS: HGB 6.6 g/dL (11.2-15.7)
[2020-06-04 07:35] LABS: ALT 23 U/L (14-59); AST 21 U/L (15-37); Albumin 2.3 g/dL (3.4-5.0); Alkaline Phosphatase 100 U/L (46-116); Anion Gap 11.2 mmol/L (3-11); BUN 36 mg/dL (7-18); Bilirubin, Total 0.4 mg/dL (0.2-1.0); CO2 21.8 mmol/L (21.0-32.0); CREATININE 2.9 mg/dL (0.55-1.02); Calcium 8.8 mg/dL (8.5-10.1); Chloride 98 mmol/L (98-107); Estimated GFR 16.24 (mL/min/1.73m2); Glucose 74 mg/dL (74-106); Potassium 4.2 mmol/L (3.5-5.1); Sodium 131 mmol/L (136-145); Total Protein 7.1 g/dL (6.4-8.2)
[2020-06-04 08:00] LABS: Ferritin 865 ng/mL (8-252); Iron 9 ug/dL (50-170); Magnesium 1.5 mg/dL (1.8-2.4); Total Iron Binding Capacity 157 ug/dL (250-450); Transferrin Sat 6 % (15-50)
--- NOTE | 2020-06-04 08:04 | UCONE_ITS ---
Date of service: 06/04/20 Time of Service: 08:04 Assessment and Plan Assessment and plan (1) Hydronephrosis, left: Status: Chronic Assessment and plan: It would be quite unusual to have a stent occlusion this soon after it was placed (only 2 or 3 weeks ago). I wonder if her progressive pelvic fistulas with the associated inflammation in the pelvis have caused her bladder pressure to increase which would not allow the urine from the left kidney to drain very well. I am going to suggest placing the Dias catheter which would decrease her bladder pressure and see if her urine output and renal function improves at all. The patient is concerned that a catheter might lead to a urinary tract infec tion, but I think using a catheter short-term especially while she is on antibiotic is a low risk proposal. If her renal function does not improve whatsoever, I am not sure that we should expect a different outcome if we were to simply change her ureteral stent. It might be a better option to have a percutaneous nephrostomy tube placed. That would divert all of her urine away from her pelvis/peritoneum since her right kidney contributes very little renal function. History of Present Illness History of Present Illness Chief Complaint: Left hydronephrosis Narrative: This is a 64-year-old woman well-known to me from my practice. She has a history of anal cancer that was treated with both surgery and radiation. I initially met her when she developed gross hematuria. At the time, we were concerned about radiation cystitis or some type of fistula involving the bladder. She actually had urothelial cell carcinoma. She was treated with transurethral resection followed by intravesical bladder treatments. She subsequently developed left hydronephrosis. I was initially concerned it was related to my surgical procedures, but the site of her left ureteral obstr uction seemed to be mid ureter and we suspect it is related to radiation therapy. She was treated with stenting and ureteral dilation. When the ureter did not remain open, her stent was replaced. Her last stent placement/change was done about 3 weeks ago. She now has a 6 Khmer stent running from her left kidney to her bladder. 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 She has had drainage procedures by the colorectal team down at [facility]. The patient has told my staff and I that there has been some discussion about a bowel diversion and skin grafting to her perineum, but with her overall medical condition deteriorating, they are not sure that she could make it through such a large procedure. She was seen in our office recently and found to have an E. coli urinary tract infection. A urine sample was obtained by a clean-catch specimen. She was started on Macrodantin. She then presented to the emergency room with weakness and fevers. A recheck of her urine by straight cath looked improved compared to her office urinalysis. Her serum creatinine however had increased from baseline and her CT shows her stent is in place but she has persistent left hydronephrosis. There was concern raised about an occlusion of her left ureteral stent. [facility] Medical History (Updated 06/04/20 @ 00:11 by Rehan Cleaning) Abnormal glandular Papanicolaou smear of cervix (04/10/02) Acute kidney failure Per pt. unilateral kidney. 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 Advanced directives, counseling/discussion Anemia Bladder cancer f/u with dr. mcmillan Bladder incontinence Bowel incontinence Cancer related pain Debility Depression due to physical illness Diabetes mellitus (07/07/12) DVT prophylaxis Essential hypertension (01/02/13) Female infertility GERD (gastroesophageal reflux disease) Goals of care, counseling/discussion Graves' disease Hematuria Hyperlipidemia Hypertension Hypokalemia Hypomagnesemia Hypotension determined by examination Hypothyroidism (07/07/12) H/O GRAVES ophthalmopathy Increased BMI Mass of anus (11/08/17) 11/04/17 -Hyperplastic polyps of descending colon and rectum Invasive keratinizing squamous cell carcinoma -Tumor invading at least rectal mucosa and submucosa [facility] [place] initiated by Dr. Wolff Obesity (BMI 30-39.9) Peripheral edema L ankle Rectal cancer Sepsis Shock circulatory Smoker Quit October 2017 - back to smoking several per day 11/27 SVT (supraventricular tachycardia) Per pt. r/t to graves disease. Pt. states she has not had any issues with this for a long time. She states she see's her PCP, to f/u UTI (urinary tract infection) Varicose veins of both lower extremities Surgical History Cervical Procedure (~1989) CRYOTHERAPY Cortical cataract of left eye Cortical cataract of right eye Endometrial Biopsy (~2002) History of bilateral ligation of fallopian tubes (02/01/14) History of gynecological procedure History of tonsillectomy and adenoidectomy Hx of cystoscopy Hx of removal of cyst right lower gluteus kurt Ligation of fallopian tube Nuclear sclerotic cataract of left eye Nuclear sclerotic cataract of right eye Posterior subcapsular age-related cataract of left eye Posterior subcapsular age-related cataract, right eye Family History Mother , of cirrhosis at age 68, likely from lifelong obesity Diabetes Essential hypertension Depression Heart disease Hyperlipidemia Stroke Liver cancer Father , dad aged 55 from AMI Heart disease Myocardial infarction Sister Hyperlipidemia Asthma Grandfather Neoplasm LUNG Grandmother Stroke Son Diabetes Asthma Daughter Anxiety Heart disease BORN WITH ENLARGED HEART Depression Bipolar Social History Smoking/Tobacco Use Status: Current every day Tobacco Type: cigarettes Tobacco: How many years used: 50 Quit status: not considering quitting Counseling given: counseling >3 minutes Smoking risk assessment performed?: Yes Alcohol Intake: never Drug use: Never Substance use type: does not use Counseling given: No Counseling provided: none Caregiver/Support person: No Household members: spouse and none Housing: apartment Do you need help understanding health information?: Rarely 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 Pets and animals: No Sexually active: No Do you think of yourself as: straight/heterosexual Current gender identity: decline to answer What is your relationship status?: How often do you talk on the phone with friends or family?: three or more times per week How often do you get together with friends or relatives?: decline to answer How often do you attend confucianist or taoist services?: decline to answer Do you belong to any clubs or organized social groups?: decline to answer Panel score (0-1 are the most socially isolated patients): 2 What type of physical activity do you participate in: none Duration: decline to answer Frequency: decline to answer Miranda/Taoist: Scientologist Special miranda needs: No Seatbelt use: always Helmet use: No Drive intox or ride w/intox pack train driver: No Do you feel safe at home: Yes Do you feel safe in your relationship?: Yes Exam Narrative Exam Narrative: She appears pale and lethargic Her vital signs are documented elsewhere Her abdomen is obese but soft with no masses and no tenderness She is arousable and oriented. Her serum creatinine remains at 2.9 with a baseline of 1.6. Her hemoglobin this point 6. Her iron level is very low. Her C-reactive peptide and procalcitonin levels are very high. Results Last Vital Signs Temp 36.4 C L 06/04/20 07:33 Pulse 73 06/04/20 07:33 Resp 19 06/04/20 07:33 BP 98/50 L 06/04/20 07:46 Pulse Ox 98 06/04/20 07:33 Labs Result diagrams: 06/04/20 06:58 06/04/20 06:58 Labs: Laboratory Results - last 24 hr 06/03/20 06/03/20 06/03/20 14:20 14:20 14:20 WBC 14.83 H RBC 2.76 L Hgb 7.6 L Hct 24.3 L MCV 88.0 MCH 27.5 MCHC 31.3 L RDW 19.9 H Plt Count 279 MPV 8.3 Immature Gran % 1.0 Neutrophils % 87.9 Lymphocytes % 3.4 Monocytes % 7.6 Eosinophils % 0.0 Basophils % 0.1 Nucleated RBC % 0 Absolute Neutrophils 13.04 H Absolute Lymphocytes 0.50 L Absolute Monocytes 1.13 H Absolute Eosinophils 0.00 Absolute Basophils 0.01 VBG Lactate 1.6 H Sodium 130 L Potassium 4.3 Chloride 96 L Carbon Dioxide 19.4 L Anion Gap 14.6 H BUN 35 H Creatinine 2.9 H Estimated GFR/1.73 m2 16.24 Glucose 110 H Calcium 9.3 Magnesium Iron TIBC Transferrin % Sat Ferritin Total Bilirubin 0.5 AST 18 ALT 21 Alkaline Phosphatase 103 C-Reactive Protein Total Protein 7.9 Albumin 2.7 L Procalcitonin Urine Color Urine Clarity Urine pH Ur Specific [facility] Urine Protein Urine Ketones Urine Blood Urine Nitrite Urine Bilirubin Urine Urobilinogen Ur Leukocyte Esterase Urine RBC Urine WBC Ur Epithelial Cells Urine Crystals Urine Bacteria Urine Casts Urine Mucus Urine Other Ur Culture Indicated? Urine Glucose COVID-19 Source Patient ABO/Rh Antibody Screen Crossmatch 06/03/20 06/03/20 06/03/20 15:05 19:25 22:35 WBC RBC Hgb Hct MCV MCH MCHC RDW Plt Count MPV Immature Gran % Neutrophils % Lymphocytes % Monocytes % Eosinophils % Basophils % Nucleated RBC % Absolute Neutrophils Absolute Lymphocytes Absolute Monocytes Absolute Eosinophils Absolute Basophils VBG Lactate Sodium Potassium Chloride Carbon Dioxide Anion Gap BUN Creatinine Estimated GFR/1.73 m2 Glucose Calcium Magnesium Iron TIBC Transferrin % Sat Ferritin Total Bilirubin AST ALT Alkaline Phosphatase C-Reactive Protein > 25.00 H Total Protein Albumin Procalcitonin Urine Color Yellow Urine Clarity Clear Urine pH 6.0 Ur Specific [facility] 1.015 Urine Protein 100 H Urine Ketones Negative Urine Blood Trace-lysed H Urine Nitrite Negative Urine Bilirubin Negative Urine Urobilinogen 0.2 Ur Leukocyte Esterase Small H Urine RBC 0-2 Urine WBC 3-5 Ur Epithelial Cells Rare Urine Crystals Negative Urine Bacteria Rare Urine Casts Negative Urine Mucus Negative Urine Other Negative Ur Culture Indicated? Yes Urine Glucose Negative COVID-19 Source Nasal/nares Patient ABO/Rh Antibody Screen Crossmatch 06/03/20 06/03/20 06/03/20 22:35 22:35 22:35 WBC RBC Hgb Hct MCV MCH MCHC RDW Plt Count MPV Immature Gran % Neutrophils % Lymphocytes % Monocytes % Eosinophils % Basophils % Nucleated RBC % Absolute Neutrophils Absolute Lymphocytes Absolute Monocytes Absolute Eosinophils Absolute Basophils VBG Lactate 0.8 Sodium Potassium Chloride Carbon Dioxide Anion Gap BUN Creatinine Estimated GFR/1.73 m2 Glucose Calcium Magnesium Iron TIBC Transferrin % Sat Ferritin Total Bilirubin AST ALT Alkaline Phosphatase C-Reactive Protein Total Protein Albumin Procalcitonin 5.8 Urine Color Urine Clarity Urine pH Ur Specific [facility] Urine Protein Urine Ketones Urine Blood Urine Nitrite Urine Bilirubin Urine Urobilinogen Ur Leukocyte Esterase Urine RBC Urine WBC Ur Epithelial Cells Urine Crystals Urine Bacteria Urine Casts Urine Mucus Urine Other Ur Culture Indicated? Urine Glucose COVID-19 Source Patient ABO/Rh O Positive Antibody Screen Negative Crossmatch See Detail 06/04/20 06/04/20 06/04/20 06:58 06:58 06:58 WBC RBC Hgb Hct MCV MCH MCHC RDW Plt Count MPV Immature Gran % Neutrophils % Lymphocytes % Monocytes % Eosinophils % Basophils % Nucleated RBC % Absolute Neutrophils Absolute Lymphocytes Absolute Monocytes Absolute Eosinophils Absolute Basophils VBG Lactate Sodium 131 L Potassium 4.2 Chloride 98 Carbon Dioxide 21.8 Anion Gap 11.2 H BUN 36 H Creatinine 2.9 H Estimated GFR/1.73 m2 16.24 Glucose 74 Calcium 8.8 Magnesium 1.5 L Iron 9 L TIBC 157 L Transferrin % Sat 6 L Ferritin 865 H Total Bilirubin 0.4 AST 21 ALT 23 Alkaline Phosphatase 100 C-Reactive Protein Total Protein 7.1 Albumin 2.3 L Procalcitonin Urine Color Urine Clarity Urine pH Ur Specific [facility] Urine Protein Urine Ketones Urine Blood Urine Nitrite Urine Bilirubin Urine Urobilinogen Ur Leukocyte Esterase Urine RBC Urine WBC Ur Epithelial Cells Urine Crystals Urine Bacteria Urine Casts Urine Mucus Urine Other Ur Culture Indicated? Urine Glucose COVID-19 Source Patient ABO/Rh Antibody Screen Crossmatch 06/04/20 06:58 WBC 10.12 D RBC 2.45 L Hgb 6.6 L* Hct 21.7 L MCV 88.6 MCH 26.9 L MCHC 30.4 L RDW 19.9 H Plt Count 235 MPV 8.2 Immature Gran % 1.6 Neutrophils % 82.8 Lymphocytes % 7.6 Monocytes % 7.7 Eosinophils % 0.1 Basophils % 0.2 Nucleated RBC % 0 Absolute Neutrophils 8.38 H Absolute Lymphocytes 0.77 L Absolute Monocytes 0.78 Absolute Eosinophils 0.01 Absolute Basophils 0.02 VBG Lactate Sodium Potassium Chloride Carbon Dioxide Anion Gap BUN Creatinine Estimated GFR/1.73 m2 Glucose Calcium Magnesium Iron TIBC Transferrin % Sat Ferritin Total Bilirubin AST ALT Alkaline Phosphatase C-Reactive Protein Total Protein Albumin Procalcitonin Urine Color Urine Clarity Urine pH Ur Specific [facility] Urine Protein Urine Ketones Urine Blood Urine Nitrite Urine Bilirubin Urine Urobilinogen Ur Leukocyte Esterase Urine RBC Urine WBC Ur Epithelial Cells Urine Crystals Urine Bacteria Urine Casts Urine Mucus Urine Other Ur Culture Indicated? Urine Glucose COVID-19 Source Patient ABO/Rh Antibody Screen Crossmatch
[2020-06-04 08:10] LABS: COVID-19 PCR Negative (Negative)
[2020-06-04] MEDS: Calcium Carbonate *TUMS* 500 MG CHEW PO (08:29)
[2020-06-04] MEDS: Pantoprazole 40 MG TABCR PO (08:30)
[2020-06-04] MEDS: Sertraline 50 MG TAB PO (08:30)
[2020-06-04] MEDS: Insulin Aspart 300 UNITS/3 ML PEN SC ×5 (08:37→22:44)
[2020-06-04] MEDS: diphenhydrAMINE 25 MG CAP PO (08:51)
[2020-06-04] MEDS: Phenazopyridine 100 MG TAB PO ×2 (08:52→20:36)
--- NOTE | 2020-06-04 09:04 | INITIAL_ITS ---
- If Service Date Differs Date of service: 06/04/20 Time of Service: 09:04 Care Management Initial Assess REASON FOR HOSPITALIZATION:: Leukocytosis, UTI PAST MEDICAL HISTORY/PAST SURGICAL HISTORY:: Medical History. Abnormal glandular Papanicolaou smear of cervix (04/10/02). Acute kidney failure. Per pt. unilateral kidney. 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 Advanced directives, counseling/discussion. Anemia. Bladder cancer. f/u with dr. mcmillan. Bladder incontinence. Bowel incontinence. Cancer related pain. Debility. Depression due to physical illness. Diabetes mellitus (07/07/12). DVT prophylaxis. Essential hypertension (01/02/13). Female infertility. GERD (gastroesophageal reflux disease). Goals of care, counseling/discussion. Graves' disease. Hematuria. Hyperlipidemia. Hypertension. Hypokalemia. Hypomagnesemia. Hypotension determined by examination. Hypothyroidism (07/07/12). H/O GRAVES. ophthalmopathy. Increased BMI. Mass of anus (11/08/17). 11/04/17. -Hyperplastic polyps of descending colon and rectum. Invasive keratinizing squamous cell carcinoma. -Tumor invading at least rectal mucosa and submucosa. [facility] [place] by Dr. Wolff. Obesity (BMI 30-39.9). Peripheral edema. L ankle. Rectal cancer. Sepsis. Shock circulatory. Smoker. Quit October 2017 - back to smoking several per day 11/27. SVT (supraventricular tachycardia). Per pt. r/t to graves disease. Pt. states she has not had any issues with this for a long time. She states she see's her PCP, to f/u. UTI (urinary tract infection). Varicose veins of both lower extremities. Surgical History. Cervical Procedure (~1989). CRYOTHERAPY. Cortical cataract of left eye. Cortical cataract of right eye. Endometrial Biopsy (~2002). History of bilateral ligation of fallopian tubes (02/01/14). History of gynecological procedure. History of tonsillectomy and adenoidectomy. Hx of cystoscopy. Hx of removal of cyst. right lower gluteus kurt. Ligation of fallopian tube. Nuclear sclerotic cataract of left eye. Nuclear sclerotic cataract of right eye. Posterior subcapsular age-related cataract of left eye. Posterior subcapsular age-related cataract, right eye PREVIOUS FUNCTIONAL STATUS/SOCIAL/FAMILY SUPPORTS:: Sherry lives in an apartment in [facility] with her , Biju. She has a daughter, Nila, who lives in [place], and a son who lives out of state. She worked as an [employer] for over 30 years, but is now retired. She uses a walker for ambulation, but is otherwise independent. CURRENT FUNCTIONAL STATUS:: Sherry was resting when CM met with her. She opened her eyes, but did not keep them open during the interaction. She reported that she was not tired, but was instead in pain. CM reported the pain to her RN. CM will continue to follow. ADVANCE DIRECTIVES:: On file, Nila (daughter) listed as agent. Has patient been provided with info about the portal/API?: Yes Did the patient sign up for the portal?: No CODE STATUS:: Full Code INSURANCE COVERAGE / FINANCIAL ISSUES:: [facility]/ for life CURRENT HOME/COMMUNITY SERVICES/EQUIPMENT:: Sherry uses a walker for ambulation. PRIMARY CARE PHYSICIAN:: Diane Leblanc POTENTIAL DISCHARGE NEEDS:: Evaluations for further needs, follow up appointments PATIENT/FAMILY EDUCATION NEEDS:: Review discharge instructions regarding activity levels and medications, discussion of self care needs including ask me three. ANTICIPATED BARRIERS TO DISCHARGE:: None identified. TRANSPORTATION:: Via private vehicle by family. PLAN:: Anticipate Sherry will return home when medically cleared. She will be driven home via private vehicle by her spouse. She will follow up with Urology, her PCP, and discharge plan of care. CM will continue to follow.
--- NOTE | 2020-06-04 12:29 | W.PM.PROGNOT ---
Date of Service Date of service: 06/04/20 Time of Service: 12:29 Assessment and Plan Assessment and plan (1) E. coli UTI: Status: Acute Assessment and plan: Continue IV Zosyn at renally adjusted dosing of 3.375 g IV every 12 hours given over 4 hours per each dose. Continue IV fluids along with analgesics and antiemetics. Consult with urology regarding her complicated UTI and chronic left hydronephrosis and ureteral stenosis. (2) Acute kidney injury superimposed on CKD: Status: Acute Assessment and plan: Give IV fluid hydration and monitor urine output with placement of Dias catheter and monitoring of her BMP (3) Acute on chronic anemia: Status: Acute Assessment and plan: Transfuse packed red blood cells for hemoglobin 8 g or higher. Give parenteral iron replacement to treat her chronic anemia. (4) Colovaginal fistula: Status: Acute Assessment and plan: Case discussed with Dr. Menon. No surgical intervention required at this time. Continue to allow for Seton drains to maintain drainage of her perirectal abscess. (5) Radiation proctitis: Status: Acute Assessment and plan: in light of her perirectal fistulas, she is not a candidate for steroid enemas to treat her proctitis (6) Generalized weakness: Status: Acute Assessment and plan: probably multifactorial including her chronic anemia and recurrent UTI. This may improve w/ treatment of her anemia and infection. she may need P.T. (7) Essential hypertension: Status: Chronic Assessment and plan: I have reordered her lopressor but her BP may not allow for this as she is mildly hypotensive. (8) Diabetes mellitus: Status: Chronic Assessment and plan: hold metformin and glipizide; cover w/ novolog sliding scale and monitor glucose AC/HS Qualifiers: Diabetes mellitus type: type 2 Diabetes mellitus [facility] insulin use: without parts counterman use Diabetes mellitus complication status: with kidney complications Diabetes mellitus complication detail: with other kidney complication Qualified Code(s): E11.29 - Type 2 diabetes mellitus with other diabetic kidney complication (9) Bladder cancer: Status: Chronic Assessment and plan: Dr. Menon raised the possibility that if the patient has recurrent E. coli UTI then perhaps she may have developed a cystorectal fistula. However, I believe that in her many cystoscopies and ureteral stent exchanges, Dr. Ruiz has done a dye study to look for a bladder/rectal fistual. Qualifiers: Bladder location: unspecified site Qualified Code(s): C67.9 - Malignant neoplasm of bladder, unspecified (10) Hydronephrosis, left: Status: Chronic Assessment and plan: patient just had left ureteral stent exchanged on 05/12/2020. Subjective Subjective Interval history since last seen: Patient feels somewhat better today. She is afebrile and although still feels chilled she is no longer having rigors. BP is down a bit today at 93/62 however her anemia is worse at Hb 6.6 gm. She is now receiving a unit of PRBC w/ repeat hemogram this afternoon. Goal is for Hb of 8 gm. Her iron level is low d/t chronic GI bleeding from her radiation proctitis. I am putting her on Venofer in addition to transfusion. As for her infection she is now on Zosyn at renal adjusted dosing. Her CKD is stable. Creatinine is 2.9 which was her level on admission. She has an atrophic right kidney and chronic left ureteral stenosis for which she has a stent. I have reequested Dr. Ruiz to follow along d/t her CKD and hydronephrosis. Dr. Menon saw her last night w/ regard to her pelvic abscess/fistulas. Patient has two Seton drains, one in the rectovaginal fistula and the other in the ischiorectal fistula. Exam Narrative Exam Narrative: She is alert and sitting up eating her lunch. She is complaining of generalized aches all over. No nausea or vomiting. Lungs are clear Heart RRR Abdomen obese soft, minimally tender over suprapubic area. no rebound tenderness nor guarding. Objective Last Vital Signs Temp 37.1 C 06/04/20 11:16 Pulse 72 06/04/20 11:16 Resp 14 06/04/20 11:16 BP 93/62 L 06/04/20 11:16 Pulse Ox 97 06/04/20 11:16 Laboratory Results - last 24 hr 06/03/20 06/03/20 06/03/20 14:20 14:20 14:20 WBC 14.83 H RBC 2.76 L Hgb 7.6 L Hct 24.3 L MCV 88.0 MCH 27.5 MCHC 31.3 L RDW 19.9 H Plt Count 279 MPV 8.3 Immature Gran % 1.0 Neutrophils % 87.9 Lymphocytes % 3.4 Monocytes % 7.6 Eosinophils % 0.0 Basophils % 0.1 Nucleated RBC % 0 Absolute Neutrophils 13.04 H Absolute Lymphocytes 0.50 L Absolute Monocytes 1.13 H Absolute Eosinophils 0.00 Absolute Basophils 0.01 VBG Lactate 1.6 H Sodium 130 L Potassium 4.3 Chloride 96 L Carbon Dioxide 19.4 L Anion Gap 14.6 H BUN 35 H Creatinine 2.9 H Estimated GFR/1.73 m2 16.24 Glucose 110 H Calcium 9.3 Magnesium Iron TIBC Transferrin % Sat Ferritin Total Bilirubin 0.5 AST 18 ALT 21 Alkaline Phosphatase 103 C-Reactive Protein Total Protein 7.9 Albumin 2.7 L Procalcitonin Urine Color Urine Clarity Urine pH Ur Specific Porter Urine Protein Urine Ketones Urine Blood Urine Nitrite Urine Bilirubin Urine Urobilinogen Ur Leukocyte Esterase Urine RBC Urine WBC Ur Epithelial Cells Urine Crystals Urine Bacteria Urine Casts Urine Mucus Urine Other Ur Culture Indicated? Urine Glucose COVID-19 Source SARS-CoV-2 (PCR) Patient ABO/Rh Antibody Screen Crossmatch 06/03/20 06/03/20 06/03/20 15:05 19:25 22:35 WBC RBC Hgb Hct MCV MCH MCHC RDW Plt Count MPV Immature Gran % Neutrophils % Lymphocytes % Monocytes % Eosinophils % Basophils % Nucleated RBC % Absolute Neutrophils Absolute Lymphocytes Absolute Monocytes Absolute Eosinophils Absolute Basophils VBG Lactate Sodium Potassium Chloride Carbon Dioxide Anion Gap BUN Creatinine Estimated GFR/1.73 m2 Glucose Calcium Magnesium Iron TIBC Transferrin % Sat Ferritin Total Bilirubin AST ALT Alkaline Phosphatase C-Reactive Protein > 25.00 H Total Protein Albumin Procalcitonin Urine Color Yellow Urine Clarity Clear Urine pH 6.0 Ur Specific Porter 1.015 Urine Protein 100 H Urine Ketones Negative Urine Blood Trace-lysed H Urine Nitrite Negative Urine Bilirubin Negative Urine Urobilinogen 0.2 Ur Leukocyte Esterase Small H Urine RBC 0-2 Urine WBC 3-5 Ur Epithelial Cells Rare Urine Crystals Negative Urine Bacteria Rare Urine Casts Negative Urine Mucus Negative Urine Other Negative Ur Culture Indicated? Yes Urine Glucose Negative COVID-19 Source Nasal/nares SARS-CoV-2 (PCR) Negative Patient ABO/Rh Antibody Screen Crossmatch 06/03/20 06/03/20 06/03/20 22:35 22:35 22:35 WBC RBC Hgb Hct MCV MCH MCHC RDW Plt Count MPV Immature Gran % Neutrophils % Lymphocytes % Monocytes % Eosinophils % Basophils % Nucleated RBC % Absolute Neutrophils Absolute Lymphocytes Absolute Monocytes Absolute Eosinophils Absolute Basophils VBG Lactate 0.8 Sodium Potassium Chloride Carbon Dioxide Anion Gap BUN Creatinine Estimated GFR/1.73 m2 Glucose Calcium Magnesium Iron TIBC Transferrin % Sat Ferritin Total Bilirubin AST ALT Alkaline Phosphatase C-Reactive Protein Total Protein Albumin Procalcitonin 5.8 Urine Color Urine Clarity Urine pH Ur Specific Porter Urine Protein Urine Ketones Urine Blood Urine Nitrite Urine Bilirubin Urine Urobilinogen Ur Leukocyte Esterase Urine RBC Urine WBC Ur Epithelial Cells Urine Crystals Urine Bacteria Urine Casts Urine Mucus Urine Other Ur Culture Indicated? Urine Glucose COVID-19 Source SARS-CoV-2 (PCR) Patient ABO/Rh O Positive Antibody Screen Negative Crossmatch See Detail 06/04/20 06/04/20 06/04/20 06:58 06:58 06:58 WBC RBC Hgb Hct MCV MCH MCHC RDW Plt Count MPV Immature Gran % Neutrophils % Lymphocytes % Monocytes % Eosinophils % Basophils % Nucleated RBC % Absolute Neutrophils Absolute Lymphocytes Absolute Monocytes Absolute Eosinophils Absolute Basophils VBG Lactate Sodium 131 L Potassium 4.2 Chloride 98 Carbon Dioxide 21.8 Anion Gap 11.2 H BUN 36 H Creatinine 2.9 H Estimated GFR/1.73 m2 16.24 Glucose 74 Calcium 8.8 Magnesium 1.5 L Iron 9 L TIBC 157 L Transferrin % Sat 6 L Ferritin 865 H Total Bilirubin 0.4 AST 21 ALT 23 Alkaline Phosphatase 100 C-Reactive Protein Total Protein 7.1 Albumin 2.3 L Procalcitonin Urine Color Urine Clarity Urine pH Ur Specific Porter Urine Protein Urine Ketones Urine Blood Urine Nitrite Urine Bilirubin Urine Urobilinogen Ur Leukocyte Esterase Urine RBC Urine WBC Ur Epithelial Cells Urine Crystals Urine Bacteria Urine Casts Urine Mucus Urine Other Ur Culture Indicated? Urine Glucose COVID-19 Source SARS-CoV-2 (PCR) Patient ABO/Rh Antibody Screen Crossmatch 06/04/20 06:58 WBC 10.12 D RBC 2.45 L Hgb 6.6 L* Hct 21.7 L MCV 88.6 MCH 26.9 L MCHC 30.4 L RDW 19.9 H Plt Count 235 MPV 8.2 Immature Gran % 1.6 Neutrophils % 82.8 Lymphocytes % 7.6 Monocytes % 7.7 Eosinophils % 0.1 Basophils % 0.2 Nucleated RBC % 0 Absolute Neutrophils 8.38 H Absolute Lymphocytes 0.77 L Absolute Monocytes 0.78 Absolute Eosinophils 0.01 Absolute Basophils 0.02 VBG Lactate Sodium Potassium Chloride Carbon Dioxide Anion Gap BUN Creatinine Estimated GFR/1.73 m2 Glucose Calcium Magnesium Iron TIBC Transferrin % Sat Ferritin Total Bilirubin AST ALT Alkaline Phosphatase C-Reactive Protein Total Protein Albumin Procalcitonin Urine Color Urine Clarity Urine pH Ur Specific Porter Urine Protein Urine Ketones Urine Blood Urine Nitrite Urine Bilirubin Urine Urobilinogen Ur Leukocyte Esterase Urine RBC Urine WBC Ur Epithelial Cells Urine Crystals Urine Bacteria Urine Casts Urine Mucus Urine Other Ur Culture Indicated? Urine Glucose COVID-19 Source SARS-CoV-2 (PCR) Patient ABO/Rh Antibody Screen Crossmatch
[2020-06-04] MEDS: MAGNESIUM SULFATE 4 GM/100 ML BAG IVPB (12:53)
[2020-06-04] MEDS: IRON SUCROSE COMPLEX 200 MG in Normal Saline 100 ML 400 MG IVPB (13:09)
[2020-06-04] MEDS: Lactobacillus Acidophilus CAP 1 CAP PO ×2 (14:26→20:36)
[2020-06-04 14:29] LABS: HGB 7.5 g/dL (11.2-15.7)
[2020-06-04] MEDS: Magnesium Oxide 400 MG TAB PO (20:36)
[2020-06-04] MEDS: Simvastatin 10 MG TAB PO (22:41)
[2020-06-05] VITALS (7 sets, daily range): BP systolic 94–125; BP diastolic 58–76; PULSE 60–73; RESP 16–19; TEMP 36.2–36.9; O2SAT 95–98
[2020-06-05] MEDS: PIPERACILLIN/TAZO 3.375 GM in Normal Saline 50 ML IVPB ×2 (04:13→16:09)
[2020-06-05 05:42] LABS: Abs Immature Grans 0.09 10^3/uL (0.0-0.06); Absolute Basophil Count 0.01 10^3/uL (0.0-0.2); Absolute Eosinophil Count 0.02 10^3/uL (0.0-0.7); Absolute Lymphocyte Count 0.57 10^3/uL (1.2-3.4); Absolute Monocyte Count 0.62 10^3/uL (0.1-0.8); Basophils % 0.2; Eosinophils % 0.3; HCT 23.4 % (36.0-46.0); HGB 7.5 g/dL (11.2-15.7); Immature Grans % 1.4; Lymphocytes % 8.8; MCH 27.8 pg (27.0-33.0); MCHC 32.1 % (32.0-36.0); MCV 86.7 fL (80-95); MPV 8.7 fL (8.0-11.0); Monocytes % 9.6; Neutrophils % 79.7; Nucleated RBC 0 %; Platelet Count 255 10^3/uL (130-400); RDW 19.3 % (11.7-14.6); RDW-SD 60.5 fL; WBC 6.48 10^3/uL (4.4-10.8)
[2020-06-05 05:47] LABS: Absolute Neutrophil Count 5.16 10^3/uL (1.2-6.7)
[2020-06-05 05:52] LABS: Anion Gap 12.2 mmol/L (3-11); BUN 36 mg/dL (7-18); CO2 23.8 mmol/L (21.0-32.0); CREATININE 2.8 mg/dL (0.55-1.02); Calcium 8.7 mg/dL (8.5-10.1); Chloride 100 mmol/L (98-107); Estimated GFR 16.91 (mL/min/1.73m2); Glucose 122 mg/dL (74-106); Magnesium 2.5 mg/dL (1.8-2.4); Potassium 3.8 mmol/L (3.5-5.1); Sodium 136 mmol/L (136-145)
[2020-06-05] MEDS: Acetaminophen 325 MG TAB PO ×2 (08:08→13:39)
[2020-06-05] MEDS: Lactobacillus Acidophilus CAP 1 CAP PO ×3 (08:08→20:00)
[2020-06-05] MEDS: Pantoprazole 40 MG TABCR PO (08:08)
[2020-06-05] MEDS: Sertraline 50 MG TAB PO (08:08)
[2020-06-05] MEDS: Phenazopyridine 100 MG TAB PO ×2 (08:08→20:00)
[2020-06-05] MEDS: Metoprolol CR 25 MG TABCR PO (08:09)
[2020-06-05] MEDS: Insulin Aspart 300 UNITS/3 ML PEN SC ×7 (08:11→22:26)
[2020-06-05] MEDS: Normal Saline Flush 10 ML SYR IVP (08:16)
--- NOTE | 2020-06-05 09:17 | IN_ITS ---
Date of service: 06/05/20 Time of Service: 09:17 PT Notes Visit Reasons: LEUKOCYTOOSIS,UTI Inpatient Physical Therapy Evaluation Date: 06/05/20 Referring Doctor: Rehan Cleaning MD PT Orders: PT CONSULT: Exacerbation of condition evaluate and treat generalized weakness Precautions: Standard. Fall. Patient Profile/Admitting Diagnosis: Patient is a 64-year-old female admitted to [facility] on June 03, 2020 when she arrived at the ER complaints of generalized weakness, dysuria and fever for the past few days. 64-year-old female with a history of frequent UTIs w/ ureteral stent placed 2 weeks ago, rectal cancer, rectocutaneous fistula managed with chronic tubing, 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 PMHX: Medical History (Updated 06/04/20 @ 00:11 by Rehan Cleaning) Abnormal glandular Papanicolaou smear of cervix (04/10/02) Acute kidney failure Per pt. unilateral kidney. 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 Advanced directives, counseling/discussion Anemia Bladder cancer f/u with dr. mcmillan Bladder incontinence Bowel incontinence Cancer related pain Debility Depression due to physical illness Diabetes mellitus (07/07/12) DVT prophylaxis Essential hypertension (01/02/13) Female infertility GERD (gastroesophageal reflux disease) Goals of care, counseling/discussion Graves' disease Hematuria Hyperlipidemia Hypertension Hypokalemia Hypomagnesemia Hypotension determined by examination Hypothyroidism (07/07/12) H/O GRAVES ophthalmopathy Increased BMI Mass of anus (11/08/17) 11/04/17 -Hyperplastic polyps of descending colon and rectum Invasive keratinizing squamous cell carcinoma -Tumor invading at least rectal mucosa and submucosa [facility] referral initiated by Dr. Wolff Obesity (BMI 30-39.9) Peripheral edema L ankle Rectal cancer Sepsis Shock circulatory Smoker Quit October 2017 - back to smoking several per day 11/27 SVT (supraventricular tachycardia) Per pt. r/t to graves disease. Pt. states she has not had any issues with this for a long time. She states she see's her PCP, to f/u UTI (urinary tract infection) Varicose veins of both lower extremities Surgical History Cervical Procedure (~1989) CRYOTHERAPY Cortical cataract of left eye Cortical cataract of right eye Endometrial Biopsy (~2002) History of bilateral ligation of fallopian tubes (02/01/14) History of gynecological procedure History of tonsillectomy and adenoidectomy Hx of cystoscopy Hx of removal of cyst right lower gluteus kurt Ligation of fallopian tube Nuclear sclerotic cataract of left eye Nuclear sclerotic cataract of right eye Posterior subcapsular age-related cataract of left eye Posterior subcapsular age-related cataract, right eye Social History/Home Situation: Lives with her in an apartment in [facility]. Steps with railing entering the dwelling. Current Functional Limitations: Patient states she feels fatigued and generalized weakness. Admits that she does ambulate at times with a single- point cane. Utilized front wheel walker when she was going through chemo treatment. Equipment Owned/DME: Front wheeled walker, single-point cane. Subjective: Patient states that she is feeling discomfort through the right buttock area where her drainage tube is located. Objective: General Observation: At start of initial valuation patient lying comfortably in bed propped to her left side to deweight her right posterior hip/buttock. Head of bed at 15 degrees. Has 2 IVs in left forearm, catheter and air compression TEDs placed on bilateral lower extremities. Mental Status: Alert and oriented x3 Pain: 8/10 buttock. ROM: Right Upper Extremity: 135 degrees of active elevation right shoulder, AA 145, elbow flexion extension within normal limits. Left Upper Extremity: 110 degrees active elevation left shoulder (dominant arm), active assisted 145. Of flexion extension within normal limits Right Lower Extremity: Within functional limits Left Lower Extremity: Within functional limits Strength: Right Upper Extremity: Glenohumeral joint flexion and abduction 4 -/5, bicep tricep 4/5. Good elevator installer Left Upper Extremity: Glenohumeral joint flexion and abduction 3+/5, bicep 4 - /5, tricep 4 -/5. Good elevator installer Right Lower Extremity: Patient perform straight leg raise with 0 degree lag. Hip flexion 4 -/5, quads and hamstrings 4 -/5, plantar and dorsiflexion 4/5 Left Lower Extremity: Straight leg raises 0 degree lag. Hip flexion, quads and hamstrings 4 -/5, plantarflexion and dorsiflexion 4/5. Sensation: Patient reports intact sensation light touch bilateral lower extremities Bed Mobility/Transfers: Bed mobility: Min assist x1 Supine to sit: Min assist x1 Sit to stand: Min assist x1 to front wheeled walker with verbal cues for proper hand placement Stand to sit: Standby assist X1 wheeled walker Gait: Patient ambulates 10 feet x 2 with front wheeled walker and contact-guard x1. After her first 10 feet she does sit at the commode with min assist particularly for hand placement. Also verbal cues when transitioning sit to sit to stand from commode again for hand placement to push off from commode as opposed to reaching for her walker. Balance: Static Sitting: Normal Dynamic Sitting: Normal Static Standing: Fair Dynamic Standing: Fair Special Tests: Mobility Limitations Standardized Measure [facility] 6 clicks Basic Mobility Inpatient Short Form: Raw Score: 18 Standardized Score: 43.63 CMS Score: 46.58 Informed Consent/Education: Patient instructed in purpose of PT consult and plan of care. Assessment: Patient is a 64 year old left hand dominant female referred to physical therapy services with the diagnosis of UTI, leukocytosis. Patient presents with clinical signs and symptoms consistent with above diagnosis, as demonstrated by the following impairment level findings: Muscle performance, motor control and range of motion. Throughout the evaluation patient was encouraged with her functional mobility compared to the day before. Does feel as though she is making slow improvements but does make frequent comments about how weak she feels. Impairments are contributing to the following functional limitations: AMPAC score. Do feel she has good rehab potential as she is motivated to participate with therapy. Patient is assessed as a [] Low 06611 X Moderate [id number] [] High 00348 complexity based on the following: History: see above Examination: see above Presentation: Evolving Decision Making: AM-PAC score 46.58 Goals: Goals X1 week 1. Supine-Sit : Standby assist 2. Sit-Supine: Standby assist 3. Sit-Stand: Standby assist to front wheeled walker 4. Stand-Sit: Standby assist from front wheeled walker 5. Bed-Chair: Standby assist with use of front wheeled walker 6. Chair-Bed: Standby assist with use of front wheeled walker 7. Gait patient ambulate greater than equal to 150 feet with use of front wheeled walker standby assist 8. Stairs: patient negotiate 4 steps with railing up and down by assist Plan of Care/Treatment Plan: 1-2x/day, 7 days/week x 1 week. Plan of care has been reviewed with the HOME THERAPY CLINICIAN providing the service under Physical Therapy direction. Initiate Physical Therapy intervention for strengthening, bed mobility, transfers, gait, stairs, balance training, use of assistive device. DISCHARGE RECOMMENDATIONS: Discharge home with PT home health services upon discharge from [facility] TREATMENT CODE/TIME: 40 minutes direct one-on-one care 910 - 9:50 Initial Evaluation: 40100 Thank you for this referral. Efrem Presley PT, DPT Disclaimer: This note was created using [employer] voice recognition software. It was reviewed for major content. However, there may be multiple small discrepancies and errors due to the voice recognition aspects of the software.
[2020-06-05] MEDS: IRON SUCROSE COMPLEX 200 MG in Normal Saline 100 ML 400 MG IVPB (09:35)
[2020-06-05 10:35] LABS: C Diff PCR Negative (Negative)
--- NOTE | 2020-06-05 12:22 | PDOC.CMPRO ---
- If Service Date Differs Date of service: 06/05/20 Time of Service: 12:22 Care Management Progress Note S/O: Per report, Sherry has shown improvement in her mobility and pain control overnight. PT evaluated her, and is recommending HH PT upon discharge. Repeat blood cultures are pending. She is on IV zosyn currently. CM will continue to follow. A: Sherry is a 64 year old female admitted to [facility] on 06/03/20 for leukocytosis, UTI. P: Anticipate Sherry will return home when medically cleared. PT has recommended HH PT upon discharge. She will be driven home via private vehicle by her spouse. She will follow up with Urology, her PCP, and discharge plan of care. CM will continue to follow.
--- NOTE | 2020-06-05 13:37 | W.PM.PROGNOT ---
Date of Service Date of service: 06/05/20 Time of Service: 13:38 Assessment and Plan Assessment and plan (1) Bacteremia: Status: Acute Assessment and plan: 1/2 blood cultures from admission are positive for <10,000 CFU of gram negative rods and gram postive tamia. Her other blood culture showed no growth. Urine culture is growing two different species of E. coli. However both are sensitive to Zosyn. I am not going to alter her antibiotics as she is responding to current treatment. I will wait for final blood cultures results. Repeat blood cultures were done this am for surveillance. (2) E. coli UTI: Status: Acute Assessment and plan: Continue IV Zosyn at renally adjusted dosing of 3.375 g IV every 12 hours given over 4 hours per each dose. (3) Acute kidney injury superimposed on CKD: Status: Acute Assessment and plan: Give IV fluid hydration and monitor urine output with placement of Dias catheter and monitoring of her BMP (4) Acute on chronic anemia: Status: Acute Assessment and plan: monitor hemoglobin; give parenteral iron; keep on protonix for UGI protection however, I believe her anemia is d/t chronic LGI bleeding from her radiation proctitis. (5) Colovaginal fistula: Status: Acute Assessment and plan: Case discussed with Dr. Menon. No surgical intervention required at this time. Continue to allow for Seton drains to maintain drainage of her perirectal abscess. Follow up w/ her surgeon at [facility] (Dr. Lauren Zamudio) (6) Radiation proctitis: Status: Acute Assessment and plan: in light of her perirectal fistulas, she is not a candidate for steroid enemas to treat her proctitis (7) Generalized weakness: Status: Acute Assessment and plan: probably multifactorial including her chronic anemia and recurrent UTI. This may improve w/ treatment of her anemia and infection. P.T. consulted. (8) Essential hypertension: Status: Chronic Assessment and plan: I have reordered her lopressor but her BP may not allow for this as she is mildly hypotensive. (9) Diabetes mellitus: Status: Chronic Assessment and plan: hold metformin and glipizide; cover w/ novolog sliding scale and monitor glucose AC/HS Qualifiers: Diabetes mellitus type: type 2 Diabetes mellitus nursing home insulin use: without termite helper use Diabetes mellitus complication status: with kidney complications Diabetes mellitus complication detail: with other kidney complication Qualified Code(s): E11.29 - Type 2 diabetes mellitus with other diabetic kidney complication (10) Bladder cancer: Status: Chronic Assessment and plan: follow up w/ Dr. Ruiz (urology) and Dr. Verduzco (heme/onc) Qualifiers: Bladder location: unspecified site Qualified Code(s): C67.9 - Malignant neoplasm of bladder, unspecified (11) Hydronephrosis, left: Status: Chronic Assessment and plan: patient just had left ureteral stent exchanged on 05/12/2020. Per Dr. Ruiz, unlikely to be obstructed this soon after stent exchange. Dias draining clear yellow urine. Good urine output (2250 mL/24h, Subjective Subjective Interval history since last seen: Patient states that she is feeling better today. Less aching. No fevers. She is passing normal BM now. Stool was neg. for C. diff. Her blood cultures were pos. gram neg. and gram positive tamia. (1/2 sets). Repeat blood cultres have been drawn this a.m. Urine culture (06/03) is positive for E. coli x 2 types of organisms but both are sensitive to Zosyn. Her leukocytosis has resolved. She remains anemic but Hb remains stable at 7.5 gm. she is receiving Venofer for her anemia. She did receive 1 unit of PRBC on 06/04 for her anemia. Presumably her anemia is d/t chronic GI bleeding from her radiation proctitis. Exam Narrative Exam Narrative: Obese, elderly female who is alert and oriented, pleasant. Lying in bed watching TV. Lungs clear Cor: RRR Abdomen: soft, NT, nl BS Objective Last Vital Signs Temp 36.4 C L 06/05/20 07:24 Pulse 71 06/05/20 07:24 Resp 18 06/05/20 07:24 BP 114/75 06/05/20 07:24 Pulse Ox 95 06/05/20 07:24 Laboratory Results - last 24 hr 06/03/20 06/04/20 06/05/20 22:35 14:00 05:30 WBC RBC Hgb 7.5 L Hct 24.0 L MCV MCH MCHC RDW Plt Count MPV Immature Gran % Neutrophils % Lymphocytes % Monocytes % Eosinophils % Basophils % Nucleated RBC % Absolute Neutrophils Absolute Lymphocytes Absolute Monocytes Absolute Eosinophils Absolute Basophils Sodium 136 Potassium 3.8 Chloride 100 Carbon Dioxide 23.8 Anion Gap 12.2 H BUN 36 H Creatinine 2.8 H Estimated GFR/1.73 m2 16.91 Glucose 122 H Calcium 8.7 Magnesium 2.5 H Stl C.difficile Tox PCR Crossmatch See Detail 06/05/20 06/05/20 05:30 08:30 WBC 6.48 D RBC 2.70 L Hgb 7.5 L Hct 23.4 L MCV 86.7 MCH 27.8 MCHC 32.1 RDW 19.3 H Plt Count 255 MPV 8.7 Immature Gran % 1.4 Neutrophils % 79.7 Lymphocytes % 8.8 Monocytes % 9.6 Eosinophils % 0.3 Basophils % 0.2 Nucleated RBC % 0 Absolute Neutrophils 5.16 Absolute Lymphocytes 0.57 L Absolute Monocytes 0.62 Absolute Eosinophils 0.02 Absolute Basophils 0.01 Sodium Potassium Chloride Carbon Dioxide Anion Gap BUN Creatinine Estimated GFR/1.73 m2 Glucose Calcium Magnesium Stl C.difficile Tox PCR Negative Crossmatch
[2020-06-05] MEDS: Simvastatin 10 MG TAB PO (22:25)
[2020-06-06 00:15] VITALS: BP 100/60
[2020-06-06 02:38] VITALS: PULSE 76; RESP 18; TEMP 35.3; O2SAT 95
[2020-06-06] MEDS: Acetaminophen 325 MG TAB PO ×3 (02:42→19:40)
[2020-06-06] MEDS: PIPERACILLIN/TAZO 3.375 GM in Normal Saline 50 ML IVPB ×2 (03:48→16:00)
[2020-06-06] MEDS: Normal Saline Flush 10 ML SYR IVP ×4 (03:49→21:48)
[2020-06-06 06:47] LABS: Abs Immature Grans 0.11 10^3/uL (0.0-0.06); Absolute Basophil Count 0.03 10^3/uL (0.0-0.2); Absolute Eosinophil Count 0.13 10^3/uL (0.0-0.7); Absolute Lymphocyte Count 0.62 10^3/uL (1.2-3.4); Absolute Monocyte Count 0.63 10^3/uL (0.1-0.8); Absolute Neutrophil Count 4.43 10^3/uL (1.2-6.7); Basophils % 0.5; Eosinophils % 2.2; HCT 24.2 % (36.0-46.0); HGB 7.3 g/dL (11.2-15.7); Immature Grans % 1.8; Lymphocytes % 10.4; MCHC 30.2 % (32.0-36.0); MCV 89.6 fL (80-95); MPV 8.9 fL (8.0-11.0); Monocytes % 10.6; Neutrophils % 74.5; Nucleated RBC 0 %; Platelet Count 283 10^3/uL (130-400); RDW 19.5 % (11.7-14.6); WBC 5.95 10^3/uL (4.4-10.8)
[2020-06-06 07:02] LABS: Anion Gap 12.1 mmol/L (3-11); BUN 43 mg/dL (7-18); C-Reactive Protein 15.32 mg/dL (0.0-0.3); CO2 21.9 mmol/L (21.0-32.0); Chloride 103 mmol/L (98-107); Estimated GFR 15.61 (mL/min/1.73m2); Glucose 155 mg/dL (74-106); Magnesium 2.3 mg/dL (1.8-2.4); Potassium 4.3 mmol/L (3.5-5.1); Sodium 137 mmol/L (136-145)
[2020-06-06 07:21] LABS: Anisocytosis 2+; Diff Comment RBC Morph Reviewed; Hypochromasia 2+; Polychromasia Present
[2020-06-06 07:23] LABS: Procalcitonin 3.1 ng/mL
[2020-06-06 07:41] VITALS: BP 112/70; PULSE 78; RESP 19; TEMP 36.7; O2SAT 98
--- NOTE | 2020-06-06 08:00 | W.PM.PROGNOT ---
Date of Service Date of service: 06/06/20 Time of Service: 08:00 Assessment and Plan Assessment and plan (1) Hydronephrosis, left: Status: Chronic Assessment and plan: With her large urine output (and only 1 functional kidney) her stent seems to be functional. Her renal function, however, is not improving. I do not believe changing her stent would have much of an impact on her renal function. One idea that I discussed with the patient this morning is to divert her urine with a nephrostomy tube. Since these tubes can be larger caliber than ureteral stents, they may provide more effective renal drainage. There would also be the benefit of diverting the urine away from the patient's perineum which has chronic fecal contaminants. The downside is that a nephrostomy tube provides a foreign body access point for bacteria directly into her one functioning kidney. When the patient last saw the colorectal surgeons down at [facility], there was a discussion regarding diverting her bowel with a colostomy and performing perineal skin grafting for the fistula sites. Concerns were raised about her ability to withstand such an extensive procedure. There was also a discussion regarding palliative care consult at [facility]. The patient is interested in a palliative care discussion locally as travel to and from [facility] has become very difficult for her. I went ahead and place the order for the palliative care consult. Subjective Subjective Interval history since last seen: The patient tells me she feels better overall, but is still quite weak. She has not been febrile. She became tearful this morning talking about how her disease progression has impacted her ability to function. She tells me I am not sure how much more of this I can take. Exam Narrative Exam Narrative: Her vital signs are documented elsewhere Her urine output is over 3 L in 24 hours Her abdomen is soft with no mass She is awake and alert Objective Last Vital Signs Temp 36.7 C 06/06/20 07:41 Pulse 78 06/06/20 07:41 Resp 19 06/06/20 07:41 BP 112/70 06/06/20 07:41 Pulse Ox 98 06/06/20 07:41 Laboratory Results - last 24 hr 06/05/20 06/06/20 06/06/20 08:30 06:40 06:40 WBC RBC Hgb Hct MCV MCH MCHC RDW Plt Count MPV Immature Gran % Neutrophils % Lymphocytes % Monocytes % Eosinophils % Basophils % Nucleated RBC % Absolute Neutrophils Absolute Lymphocytes Absolute Monocytes Absolute Eosinophils Absolute Basophils RBC Morphology Polychromasia Hypochromasia Anisocytosis Sodium 137 Potassium 4.3 Chloride 103 Carbon Dioxide 21.9 Anion Gap 12.1 H BUN 43 H Creatinine 3.0 H Estimated GFR/1.73 m2 15.61 Glucose 155 H Calcium 9.0 Magnesium 2.3 C-Reactive Protein 15.32 H Procalcitonin 3.1 Stl C.difficile Tox PCR Negative 06/06/20 06:40 WBC 5.95 RBC 2.70 L Hgb 7.3 L Hct 24.2 L MCV 89.6 MCH 27.0 MCHC 30.2 L RDW 19.5 H Plt Count 283 MPV 8.9 Immature Gran % 1.8 Neutrophils % 74.5 Lymphocytes % 10.4 Monocytes % 10.6 Eosinophils % 2.2 Basophils % 0.5 Nucleated RBC % 0 Absolute Neutrophils 4.43 Absolute Lymphocytes 0.62 L Absolute Monocytes 0.63 Absolute Eosinophils 0.13 Absolute Basophils 0.03 RBC Morphology See below Polychromasia Present Hypochromasia 2+ Anisocytosis 2+ Sodium Potassium Chloride Carbon Dioxide Anion Gap BUN Creatinine Estimated GFR/1.73 m2 Glucose Calcium Magnesium C-Reactive Protein Procalcitonin Stl C.difficile Tox PCR
[2020-06-06] MEDS: Lactobacillus Acidophilus CAP 1 CAP PO ×3 (08:47→19:41)
[2020-06-06] MEDS: Sertraline 50 MG TAB PO (08:47)
[2020-06-06] MEDS: Metoprolol CR 25 MG TABCR PO (08:47)
[2020-06-06] MEDS: Pantoprazole 40 MG TABCR PO (08:47)
[2020-06-06] MEDS: Docusate Sodium 100 MG CAP PO (08:47)
[2020-06-06] MEDS: Phenazopyridine 100 MG TAB PO (08:47)
[2020-06-06] MEDS: Insulin Aspart 300 UNITS/3 ML PEN SC ×7 (08:48→21:48)
[2020-06-06] MEDS: IRON SUCROSE COMPLEX 200 MG in Normal Saline 100 ML 400 MG IVPB (10:43)
--- NOTE | 2020-06-06 11:49 | PTTR_ITS ---
PT Notes Visit Reasons: LEUKOCYTOOSIS,UTI 06/06/2020 SUBJECTIVE: Feels sore through the buttock region. Is uncomfortable to sit for long periods of time. Able to sit EOB this morning to eat her breakfast. OBJECTIVE: TRANSFERS Supine to sit: SBA Sit to supine: SBA Sit to stand: SBA Stand to sit: SBA GAIT Device: FWW Weight bearing: Full Assist: SBA Distance: 150' Deviation: One stand rest break ASSESSMENT: Tolerates increase in gait well today without LOB. She does have a few steps to enter her home and we will practice these in the next day or two as she is feeling up to it. PLAN: Continue current POC. Treatment time: 15 minutes [id number] Adriana Robbins PTA Clinic location: [facility] [place], [place]
--- NOTE | 2020-06-06 12:41 | W.PALLCONSUL ---
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 Patient is followed by Dr. Flakito Verduzco her oncologist as well as Dr. Susan Cagle her general surgeon at [facility]. 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 She has also had complications from radiation treatment including radiation proctitis causing chronic rectal bleeding and a chronic iron deficiency anemia as well as development of left ureteral stricture and chronic left hydronephrosis requiring an indwelling ureteral stent which was most recently changed by Dr. Chris Mcmillan 04/14/2020. She was diagnosed with high-grade noninvasive urothelial cell carcinoma which she was hospitalized with hematuria and underwent cystoscopy by Dr. Chris Mcmillan in November 2018. This has been treated with transurethral bladder resection and gemcitabine. And has required repeated cystoscopy and fulguration and instillation of mitomycin-C. She recently presented to the urology clinic June 01, 2020 with complaints of dysuria and hematuria and urinalysis was positive for moderate blood and leukocyte Estrace and she was started on a course of nitrofurantoin 100 mg twice daily x7 days and the urine culture was sent off and is since returned positive for greater than 100,000 colonies of E. coli with 2 different colonies of E. coli and less than 10,000 colonies of mixed gram-positive tamia. Sensitivity is pending at this time. Today she presented to emergency department continued dysuria including difficulty voiding as well as low-grade fevers of 101 degrees and chills and nausea and vomiting. Evaluation in the emergency department clued routine labs and a CT scan of her abdomen pelvis. She is found to have a leukocytosis of 14,000 and a chronic anemia that is worsening with a hemoglobin 7.6 g hematocrit 24%. Has worsening azotemia in the setting of known chronic kidney disease. BUN is elevated 35 creatinine 2.9 whereas her baseline level is 16 and creatinine of 0.97 however her most recent levels were 22 and 1.6 as of 04/22/2020. She has an atrophic right kidney in addition to hydronephrosis of her left kidney and left ureteral stenosis. CT of her abdomen and pelvis w/out contrast demonstrated the known left hydronephrosis and left ureteral stent from the left renal pelvis to the bladder as well as the known Seton drains in the pelvis and gas in the pelvis in the tissues adjacent to one of the Seton catheters. Blood and urine cultures were obtained and the patient was started on Zosyn empirically. Dr. Redmond consulted w/ Dr. Mcmillan who saw the patient in the emergency room and reviewed the CT scan and does not think that the left ureteral stent is obstructed (contrary to the impression of the radiologist's reading) and Dr. Redmond and Dr. Cartagena consulted / [facility] service who reviewed the CT findings and did not feel that the CT warranted transfer and urgent surgical evaluation/intervention. Dr. Cartagena consulted w/ our surgeon, Dr. Menon who evaluated the patient and reviewed her CT findings, see her note for details. At present the patient will be admitted to [facility] hospitalist service for treatment of complicated UTI and to rule out potential pelvic abscess from her rectovaginal and rectoischial fistulas. Interim Hx: Since admission when he has been to did with antibiotics for complicated UTI. She has been seen by Dr. Mcmillan who requested a palliative consult. She states that today her stools are very runny. This is not unusual for her. She continues to have significant buttocks pain What bothers her the most is that she now is dependent upon other people to do things for her such as wipe her bottom after bowel movements etc. she is also said that her has dementia and is now at [facility] and that she cannot care for him. She states that her physician at [facility] said that a colostomy was probably the next step to prevent problems with her multiple fistulas. She truly does not want to go the colostomy route. She states that after 3 years she would just like to stop hurting all the time. Her bottom is chronically irritated and in pain. She finds the wipes that are used at the hospital to be the very best. She would like to get some of these. She is spoken at length to her daughter about her wishes. Her daughter keeps emphasizing quality of life. She agrees with this. She does not want to be hooked up to machines and she does not want CPR. She is hoping to at home. Her granddaughter is 10 years old she would like to see her granddaughter graduate from high school which is in about 8 years. She has tried different medications in the past. She loves morphine but weaned herself from it so that she would be clear of mind. She states that no one else is going to make decisions for her, although she does trust her daughter very much. Her daughter is sometimes overwhelmed just because of all that needs to be done. She does not want to be in pain at the end is near. She did have her loose stools tested here in the hospital and she is negative for C. difficile. She had 1 out of 4 blood cultures to be positive but they think it might be a contaminant and have redone these. 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 coli UTI: Status: Acute (4) Colovaginal fistula: Status: Acute (5) Acute kidney injury superimposed on CKD: Status: Acute (6) Hyponatremia: Status: Acute (7) Bladder cancer: Status: Chronic Qualifiers: Bladder location: unspecified site Qualified Code(s): C67.9 - Malignant neoplasm of bladder, unspecified (8) Palliative care patient: Status: Acute Assessment and plan: Today we talked about CODE STATUS. She is very clear she does not want chest compressions, electricity to jumpstart her heart, or to be hooked up to machine for any length of time. She wants quality of life not quantity of life and she does not feel that CPR will increase her quality of life. She still wants to be transported to the hospital, she does not want a feeding tube but does want IV fluids antibiotics. At this point we have decided that we will continue our conversation after I have reviewed her medical record in light of her goals which is quality of life and not to be mottled because of opioids Thank you very much for this consult Review of Systems Narrative: Her biggest problem is the soreness that she has on her buttocks. This is been going on now for 3+ years. It is constantly irritated and because of the multiple drains she has infected. Sometimes at night she can move a certain way put Desitin on her buttocks and actually have relief. She also has some sort of a cyst in her right cheek. She has multiple drains. She now has bladder cancer which is being managed by Dr. Mcmillan. [facility] Medical History (Updated 06/06/20 @ 15:48 by Brittany Riggins MD, [place]) Abnormal glandular Papanicolaou smear of cervix (04/10/02) Acute kidney failure Per pt. unilateral kidney. 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 Advanced directives, counseling/discussion Anemia Bladder cancer f/u with dr. mcmillan Bladder incontinence Bowel incontinence Cancer related pain Debility Depression due to physical illness Diabetes mellitus (07/07/12) DVT prophylaxis Essential hypertension (01/02/13) Female infertility GERD (gastroesophageal reflux disease) Goals of care, counseling/discussion Graves' disease Hematuria Hyperlipidemia Hypertension Hypokalemia Hypomagnesemia Hypotension determined by examination Hypothyroidism (07/07/12) H/O GRAVES ophthalmopathy Increased BMI Mass of anus (11/08/17) 11/04/17 -Hyperplastic polyps of descending colon and rectum Invasive keratinizing squamous cell carcinoma -Tumor invading at least rectal mucosa and submucosa [facility] [place] referral initiated by Dr. Wolff Obesity (BMI 30-39.9) Peripheral edema L ankle Rectal cancer Sepsis Shock circulatory Smoker Quit October 2017 - back to smoking several per day 11/27 SVT (supraventricular tachycardia) Per pt. r/t to graves disease. Pt. states she has not had any issues with this for a long time. She states she see's her PCP, to f/u UTI (urinary tract infection) Varicose veins of both lower extremities Surgical History Cervical Procedure (~1989) CRYOTHERAPY Cortical cataract of left eye Cortical cataract of right eye Endometrial Biopsy (~2002) History of bilateral ligation of fallopian tubes (02/01/14) History of gynecological procedure History of tonsillectomy and adenoidectomy Hx of cystoscopy Hx of removal of cyst right lower gluteus kurt Ligation of fallopian tube Nuclear sclerotic cataract of left eye Nuclear sclerotic cataract of right eye Posterior subcapsular age-related cataract of left eye Posterior subcapsular age-related cataract, right eye Family History Mother , of cirrhosis at age 68, likely from lifelong obesity Diabetes Essential hypertension Depression Heart disease Hyperlipidemia Stroke Liver cancer Father , dad aged 55 from AMI Heart disease Myocardial infarction Sister Hyperlipidemia Asthma Grandfather Neoplasm LUNG Grandmother Stroke Son Diabetes Asthma Daughter Anxiety Heart disease BORN WITH ENLARGED HEART Depression Bipolar Social History Smoking/Tobacco Use Status: Current every day Tobacco Type: cigarettes Tobacco: How many years used: 50 Quit status: not considering quitting Counseling given: counseling >3 minutes Smoking risk assessment performed?: Yes Alcohol Intake: never Drug use: Never Substance use type: does not use Counseling given: No Counseling provided: none Caregiver/Support person: No Household members: spouse and none Housing: apartment Do you need help understanding health information?: Rarely 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 Pets and animals: No Sexually active: No Do you think of yourself as: straight/heterosexual Current gender identity: decline to answer What is your relationship status?: How often do you talk on the phone with friends or family?: three or more times per week How often do you get together with friends or relatives?: decline to answer How often do you attend scientology or episcopalian services?: decline to answer Do you belong to any clubs or organized social groups?: decline to answer Panel score (0-1 are the most socially isolated patients): 2 What type of physical activity do you participate in: none Duration: decline to answer Frequency: decline to answer Miranda/Voodoo: Samaritan Special miranda needs: No Seatbelt use: always Helmet use: No Drive intox or ride w/intox mechanic welder truck driver: No Do you feel safe at home: Yes Do you feel safe in your relationship?: Yes Exam Narrative Exam Narrative: Sherry is a friendly fun-loving woman, but in tears when she talks about being dependent on others. She laughs easily and talks about how she enjoys the leg huggers because it is like an instant massage. Her heart is regular there is a murmur lungs decreased air movement but I did not hear any rales. Her buttocks consider different drains I did not see redness Results Last Vital Signs Temp 98.1 F 06/06/20 07:41 Pulse 78 06/06/20 07:41 Resp 19 06/06/20 07:41 BP 112/70 06/06/20 07:41 Pulse Ox 98 06/06/20 07:41 Labs Result diagrams: 06/07/20 06:15 06/07/20 06:15 Labs: Laboratory Results - last 24 hr 06/06/20 06/06/20 06/06/20 06:40 06:40 06:40 WBC 5.95 RBC 2.70 L Hgb 7.3 L Hct 24.2 L MCV 89.6 MCH 27.0 MCHC 30.2 L RDW 19.5 H Plt Count 283 MPV 8.9 Immature Gran % 1.8 Neutrophils % 74.5 Lymphocytes % 10.4 Monocytes % 10.6 Eosinophils % 2.2 Basophils % 0.5 Nucleated RBC % 0 Absolute Neutrophils 4.43 Absolute Lymphocytes 0.62 L Absolute Monocytes 0.63 Absolute Eosinophils 0.13 Absolute Basophils 0.03 RBC Morphology See below Polychromasia Present Hypochromasia 2+ Anisocytosis 2+ Sodium 137 Potassium 4.3 Chloride 103 Carbon Dioxide 21.9 Anion Gap 12.1 H BUN 43 H Creatinine 3.0 H Estimated GFR/1.73 m2 15.61 Glucose 155 H Calcium 9.0 Magnesium 2.3 C-Reactive Protein 15.32 H Procalcitonin 3.1
--- NOTE | 2020-06-06 13:31 | W.PM.PROGNOT ---
Date of Service Date of service: 06/06/20 Time of Service: 13:32 Assessment and Plan Assessment and plan (1) Bacteremia: Status: Acute Assessment and plan: resolving. Repeat BC shows no growth at 24h. Original blood culture was 1/2 positive for E. coli. She is on Zosyn. I will switch her to Augmentin and if she does well on this she can return home. She can follow up w/ Dr. Ruiz to discuss whether or not to proceed w/ urostomy. (2) E. coli UTI: Status: Acute Assessment and plan: dc Zosyn after today and place her on Augmentin for another week. (3) Acute kidney injury superimposed on CKD: Status: Acute Assessment and plan: despite iv fluids over the weekend and weaver catheter there has been no improvement in her creatinine although her urine output has been good (over 2400 mL/24h) (4) Acute on chronic anemia: Status: Acute Assessment and plan: likely d/t LGI bleeding from her radiation proctitis. Hb has been stable over past 3 days since her transfusion. Patient will receive another dose of Venofer (5) Colovaginal fistula: Status: Acute Assessment and plan: Case discussed with Dr. Menon. No surgical intervention required at this time. Continue to allow for Seton drains to maintain drainage of her perirectal abscess. [place] up w/ [place] [facility] [place]. Lauren Zamudio) (6) Radiation proctitis: Status: Acute Assessment and plan: in light of her perirectal fistulas, she is not a candidate for steroid enemas to treat her proctitis (7) Generalized weakness: Status: Acute Assessment and plan: probably multifactorial including her chronic anemia and recurrent UTI. This may improve w/ treatment of her anemia and infection. P.T. consulted. (8) Essential hypertension: Status: Chronic Assessment and plan: patient is back on her Toprol XL and BP is doing ok (9) Diabetes mellitus: Status: Chronic Assessment and plan: hold metformin and glipizide; cover w/ novolog sliding scale and monitor glucose AC/HS Qualifiers: Diabetes mellitus complication detail: with other kidney complication Diabetes mellitus complication status: with kidney complications Diabetes mellitus skilled nursing insulin use: without skilled nursing use Diabetes mellitus type: type 2 Qualified Code(s): E11.29 - Type 2 diabetes mellitus with other diabetic kidney complication (10) Bladder cancer: Status: Chronic Assessment and plan: follow up w/ Dr. Ruiz (urology) and Dr. Verduzco (heme/onc) Qualifiers: Bladder location: unspecified site Qualified Code(s): C67.9 - Malignant neoplasm of bladder, unspecified (11) Hydronephrosis, left: Status: Chronic Assessment and plan: patient just had left ureteral stent exchanged on 05/12/2020. Per Dr. Ruiz, unlikely to be obstructed this soon after stent exchange. Weaver draining clear yellow urine. Good urine output (2400 mL/24h); patient and Dr. Ruiz to discuss her options regarding urostomy versus continued ureteral stents. Subjective Subjective Interval history since last seen: Overall Sherry is feeling better. No fever, chills, rigors, abdominal pains nor nausea or vomiting. She says that Dr. Ruiz saw her this morning and spoke about an alternative to doing repeat ureteral stent exchanges and doing an urostomy to provide more effective drainage to her one functional kidney. I think that she would need thorough medical evaluation as to how well she could tolerate this procedure. According to Dr. Ruiz's notes, the patient's colorectal surgeon had discussed performing a diverting colostomy to allow her rectovaginal and rectoischial fistulas to heal then performing graft to her perineum. Sherry would like her weaver catheter out, and now that it appears that her KYLE has plateaued w/ creatinine of 3.0 and she appears to be making adequate urine w/ UO of 2400 mL/day, I think that he weaver can come out. Repeat blood cultures from 06/05 are no growth at 24h. If this remains no growth tomorrow, then I will switch her to oral antibiotics and discharge her home. She can complete a 10 day course of antibiotics including that which she has recieved her in the hospital. Exam Narrative Exam Narrative: Pleasant obese female lying in bed in no discomfort. She is alert and oriented person place time circumstance. Lungs are clear to auscultation Heart regular rate and rhythm without murmur rub or gallop Abdomen soft nontender nondistended without suprapubic tenderness. No flank pain Perirectal area shows seton drain in place without breakdown of the skin. Objective Last Vital Signs Temp 36.7 C 06/06/20 07:41 Pulse 78 06/06/20 07:41 Resp 19 06/06/20 07:41 BP 112/70 06/06/20 07:41 Pulse Ox 98 06/06/20 07:41 Laboratory Results - last 24 hr 06/06/20 06/06/20 06/06/20 06:40 06:40 06:40 WBC 5.95 RBC 2.70 L Hgb 7.3 L Hct 24.2 L MCV 89.6 MCH 27.0 MCHC 30.2 L RDW 19.5 H Plt Count 283 MPV 8.9 Immature Gran % 1.8 Neutrophils % 74.5 Lymphocytes % 10.4 Monocytes % 10.6 Eosinophils % 2.2 Basophils % 0.5 Nucleated RBC % 0 Absolute Neutrophils 4.43 Absolute Lymphocytes 0.62 L Absolute Monocytes 0.63 Absolute Eosinophils 0.13 Absolute Basophils 0.03 RBC Morphology See below Polychromasia Present Hypochromasia 2+ Anisocytosis 2+ Sodium 137 Potassium 4.3 Chloride 103 Carbon Dioxide 21.9 Anion Gap 12.1 H BUN 43 H Creatinine 3.0 H Estimated GFR/1.73 m2 15.61 Glucose 155 H Calcium 9.0 Magnesium 2.3 C-Reactive Protein 15.32 H Procalcitonin 3.1
--- NOTE | 2020-06-06 15:43 | W.NUTRFU ---
Date of service: 06/06/20 Time of Service: 15:43 Nutritional Follow up NOTE: 64 year old female admitted with anal stenosis with hx of rectal CA with radiation/chemo with ecoli UTI and colovaginal fistula. Blood sugars mildly elevated, has pre diabetes 6.5% (09/14/20). Following CHO/Heart healthy diet with excellent intake. BMI indicates obesity. Not at nutritional risk at this time. Time Spent in Nutritional Counseling and Treatment: 0
[2020-06-06 15:45] VITALS: BP 113/66; PULSE 64; RESP 18; TEMP 36.2; O2SAT 99
--- NOTE | 2020-06-06 15:53 | PDOC.CMPRO ---
- If Service Date Differs Date of service: 06/06/20 Time of Service: 15:53 Care Management Progress Note S/O: Sherry was lying in bed when CM met with her. She reported that she is feeling much better than when she arrived. Her lunch was delivered into her room, and she stated that she will need assistance to sit up, but she is ok sitting up once she is up. She reported that she has been working well with PT. PT is recommending HH PT, and she may benefit from HH RN as well for a smooth transition home. Currently, MD is waiting for repeat blood cultures to determine abx course. CM will continue to follow. A: Sherry is a 64 year old female admitted to [facility] on 06/03/20 for leukocytosis, UTI. P: Anticipate Sherry will return home when medically cleared. PT has recommended HH PT upon discharge. She will be driven home via private vehicle by her spouse. She will follow up with Urology, her PCP, and discharge plan of care. CM will continue to follow.
--- NOTE | 2020-06-06 16:23 | PTTR_ITS ---
PT Notes Visit Reasons: LEUKOCYTOOSIS,UTI 06/06/2020 Session # 2 SUBJECTIVE: No pain complaints this afternoon. Agreeable to PT treatment. Is asking about a rail system that could be added to her bed at home to assist her to get in and out of bed. OBJECTIVE: TRANSFERS Supine to sit: SBA Sit to supine: SBA Sit to stand: SBA Stand to sit: SBA GAIT Device: FWW Weight bearing: Full Assist: SBA Distance: 200' Deviation: No LOB or path deviations, no rest required ASSESSMENT: Pt tolerating increase in gait well. She does rely on railings to get out of bed and may need some support when going home. Will have to work on getting in and out of bed without rails if this cannot be added to her home set up. PLAN: Continue current POC. Progress gait, stair management and transfers without bed rails. Treatment time: 20' 105[address] Adriana Robbins PTA Clinic location: [facility] [place], [place]
--- NOTE | 2020-06-06 16:47 | PHA.REVIEW ---
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 (Acute) Frequent UTI (Acute) Acute kidney injury superimposed on CKD (Acute) Hyponatremia (Acute) Generalized weakness (Acute) Acute on chronic anemia (Acute) Bowel incontinence (Acute) Bladder incontinence (Acute) Acute kidney failure (Acute) copper Allergy (Verified 06/03/20 13:51) Skin Rash lidocaine Allergy (Verified 06/03/20 14:04) Itching-all the fabby codeine Adverse Reaction (Verified 06/03/20 14:04) tired latex Adverse Reaction (Verified 06/03/20 14:04) eczema flares up oxycodone Adverse Reaction (Verified 06/03/20 14:04) pt.unsure of reaction Height 5 ft 4 in Weight 92.034 kg - Renal Dosing Renal Dosing: BUN 43 mg/dL (7-18) H 06/06/20 06:40 Creatinine 3.0 mg/dL (0.55-1.02) H 06/06/20 06:40 Medications needing adjustments: Intervened (Crcl ~20.3 mL/min. Zosyn is renally adjusted. Phenazopyridine use in not recommended with the pt's current renal function, will mention to provider.) - Anticoagulation Anticoagulation: Hgb 7.3 g/dL (11.2-15.7) L 06/06/20 06:40 Hct 24.2 % (36.0-46.0) L 06/06/20 06:40 Plt Count 283 10^3/uL (130-400) 06/06/20 06:40 Creatinine 3.0 mg/dL (0.55-1.02) H 06/06/20 06:40 DVT Prohphylaxis: Reviewed (SCDs ordered, pt is anemic) Therapeutic Anticoagulation: N/A - Opiate Usage Evaluate Pain Scale/Pains Meds: N/A - Relevant Labs Sodium 137 mmol/L (136-145) 06/06/20 06:40 Potassium 4.3 mmol/L (3.5-5.1) 03/29/21 06:40 Chloride 103 mmol/L (98-107) 06/06/20 06:40 Magnesium 2.3 mg/dL (1.8-2.4) 06/06/20 06:40 C-Reactive Protein 15.32 mg/dL (0.0-0.3) H 06/06/20 06:40 Electrolytes, C-Reactive P, ESR: Reviewed - DM Control DM Control: Glucose 155 mg/dL (74-106) H 06/06/20 06:40 Finger Stick Blood Glucose 146 Finger Stick Blood Glucose 146 Finger Stick Blood Glucose 186 Finger Stick Blood Glucose 186 Finger Stick Blood Glucose 186 Finger Stick Blood Glucose 186 Finger Stick Blood Glucose 155 Finger Stick Blood Glucose 155 Insulin Dosing: Reviewed (has sliding scale and carb coverage with insulin aspart) - Heart Failure/WA EF%, JOSÉ LUIS's, B-Blockers, Diuretics: N/A - BP Control BP Control: Blood Pressure 113/66 Blood Pressure 112/70 If elevated: N/A - Qtc Review If Elevated: N/A (QTc 414 on admission) - IV to PO Switch IV Medications: Reviewed - Home Meds Home Med List reviewed: Reviewed (Separate admin of calcium and levothyroxine.) Relevent Home Meds Not ordered & why?: fluocinonide, glipizide (has insulin coverage), metformin (has insulin coverage), nitrofurantoin (has other abx ordered), potassium, psyllium - Current meds Current Medication Order Review: Reviewed - Comments Comments/Follow Ups: Watch VS, H/H, BG, SCr and for med changes (renal dose adjustments). Antibiotic Activity - Pharmacy Antibiotic Review Pharmacy Antibiotic Activity: C/S review (BC growing E.coli, repeat BC no growth to date, urine culture growing gram negative rods and gram+ tamia. Zosyn continues (day 4 started this afternoon), provider mentioned changing to augmentin.)
[2020-06-06] MEDS: Simvastatin 10 MG TAB PO (21:48)
[2020-06-07] MEDS: Acetaminophen 325 MG TAB PO ×3 (01:23→19:22)
[2020-06-07] MEDS: PIPERACILLIN/TAZO 3.375 GM in Normal Saline 50 ML IVPB (04:46)
[2020-06-07 04:53] VITALS: BP 115/68; PULSE 58; RESP 16; TEMP 36; O2SAT 99
[2020-06-07 06:48] LABS: Abs Immature Grans 0.26 10^3/uL (0.0-0.06); Absolute Basophil Count 0.04 10^3/uL (0.0-0.2); Absolute Eosinophil Count 0.13 10^3/uL (0.0-0.7); Absolute Lymphocyte Count 0.84 10^3/uL (1.2-3.4); Absolute Monocyte Count 0.54 10^3/uL (0.1-0.8); Absolute Neutrophil Count 4.11 10^3/uL (1.2-6.7); Basophils % 0.7; Eosinophils % 2.2; HGB 8.3 g/dL (11.2-15.7); Immature Grans % 4.4; Lymphocytes % 14.2; MCH 27.1 pg (27.0-33.0); MCHC 29.6 % (32.0-36.0); MCV 91.5 fL (80-95); MPV 8.7 fL (8.0-11.0); Monocytes % 9.1; Neutrophils % 69.4; Nucleated RBC 0 %; Platelet Count 314 10^3/uL (130-400); RBC 3.06 10^6/uL (3.93-5.22); RDW 19.3 % (11.7-14.6); RDW-SD 65.3 fL; WBC 5.92 10^3/uL (4.4-10.8)
[2020-06-07] MEDS: Pantoprazole 40 MG TABCR PO (06:51)
[2020-06-07 06:54] LABS: Anion Gap 10.7 mmol/L (3-11); BUN 40 mg/dL (7-18); CO2 24.3 mmol/L (21.0-32.0); CREATININE 2.7 mg/dL (0.55-1.02); Chloride 104 mmol/L (98-107); Estimated GFR 17.63 (mL/min/1.73m2); Glucose 147 mg/dL (74-106); Potassium 4.6 mmol/L (3.5-5.1); Sodium 139 mmol/L (136-145)
[2020-06-07 07:18] VITALS: BP 109/64; PULSE 54; RESP 16; TEMP 35.9; O2SAT 99
--- NOTE | 2020-06-07 07:18 | W.PM.PROGNOT ---
Date of Service Date of service: 06/07/20 Time of Service: 07:18 Assessment and Plan Assessment and plan (1) Hydronephrosis, left: Status: Chronic Assessment and plan: She is successfully transitioning to oral antibiotics. She is hoping that she will be able to obtain additional physical therapy (either in a swing bed or at home). Many thanks to Dr. Riggins for seeing Mrs. Werner while she is an inpatient. (2) E. coli UTI: Status: Acute (3) Bacteremia: Status: Acute Subjective Subjective Interval history since last seen: Overall, Mrs. Werner feels better. She still feels quite weak but is not febrile. She is voiding on her own after the catheter was removed yesterday. Exam Narrative Exam Narrative: She looks much better than on admission Her vital signs are documented elsewhere Her abdomen is soft with no guarding or rebound tenderness Her serum creatinine remains stable at 2.7 Objective Last Vital Signs Temp 36.0 C L 06/07/20 04:53 Pulse 58 L 06/07/20 04:53 Resp 16 06/07/20 04:53 BP 115/68 06/07/20 04:53 Pulse Ox 99 06/07/20 04:53 Laboratory Results - last 24 hr 06/06/20 06/06/20 06/07/20 06:40 06:40 06:15 WBC 5.95 RBC 2.70 L Hgb 7.3 L Hct 24.2 L MCV 89.6 MCH 27.0 MCHC 30.2 L RDW 19.5 H Plt Count 283 MPV 8.9 Immature Gran % 1.8 Neutrophils % 74.5 Lymphocytes % 10.4 Monocytes % 10.6 Eosinophils % 2.2 Basophils % 0.5 Nucleated RBC % 0 Absolute Neutrophils 4.43 Absolute Lymphocytes 0.62 L Absolute Monocytes 0.63 Absolute Eosinophils 0.13 Absolute Basophils 0.03 RBC Morphology See below Polychromasia Present Hypochromasia 2+ Anisocytosis 2+ Sodium 139 Potassium 4.6 Chloride 104 Carbon Dioxide 24.3 Anion Gap 10.7 BUN 40 H Creatinine 2.7 H Estimated GFR/1.73 m2 17.63 Glucose 147 H Calcium 9.0 Procalcitonin 3.1 06/07/20 06:15 WBC 5.92 RBC 3.06 L Hgb 8.3 L Hct 28.0 L MCV 91.5 MCH 27.1 MCHC 29.6 L RDW 19.3 H Plt Count 314 MPV 8.7 Immature Gran % 4.4 Neutrophils % 69.4 Lymphocytes % 14.2 Monocytes % 9.1 Eosinophils % 2.2 Basophils % 0.7 Nucleated RBC % 0 Absolute Neutrophils 4.11 Absolute Lymphocytes 0.84 L Absolute Monocytes 0.54 Absolute Eosinophils 0.13 Absolute Basophils 0.04 RBC Morphology Polychromasia Hypochromasia Anisocytosis Sodium Potassium Chloride Carbon Dioxide Anion Gap BUN Creatinine Estimated GFR/1.73 m2 Glucose Calcium Procalcitonin
[2020-06-07] MEDS: Sertraline 50 MG TAB PO (07:56)
[2020-06-07] MEDS: Lactobacillus Acidophilus CAP 1 CAP PO ×3 (07:57→19:21)
[2020-06-07] MEDS: Insulin Aspart 300 UNITS/3 ML PEN SC ×6 (08:38→21:33)
[2020-06-07] MEDS: Amoxicillin 500/Clav. 125 TAB PO ×2 (11:17→19:21)
--- NOTE | 2020-06-07 13:49 | PT.INTREAT ---
Date of service: 06/07/20 Time of Service: 12:50 PT Notes Visit Reasons: LEUKOCYTOOSIS,UTI Inpatient Physical Therapy Treatment Note [facility] Date: 06/07/2020 PRECAUTIONS: Fall SUBJECTIVE: Sherry is pleasant and agreeable to participating in PT. She reports that she is feeling very tired today. She also discusses that she is having difficulty with fine motor control in left hand, which is her dominant hand. She reports that she is struggling to grasp silverware, and that she has difficulty holding a cup. This reportedly, was starting to become an issue just prior to admission. OBJECTIVE: PAIN: Patient c/o significant buttock pain with sitting and transfers. BED MOBILITY/TRANSFERS Supine-sit: I Sit-stand: S Stand-sit: S Bed-chair: S Chair-bed: S GAIT Assistive Device: FWW Weight bearing: Full Assist: S Distance: 100' + 150' Deviation: Seated rest STAIRS: Up/down 3x4 and 2x6 using B rails and a step to pattern with supervision ASSESSMENT: Patient session well, although complained of pain with sitting and transfers. She also complained of increasing fatigue with activity. PLAN: Continue with PTs POC TREATMENT CODE/TIME: 25 minutes; 60421 x2 (12:50)
[2020-06-07 15:30] VITALS: BP 108/65; PULSE 66; RESP 17; TEMP 36.5; O2SAT 98
--- NOTE | 2020-06-07 15:48 | PDOC.CMPRO ---
- If Service Date Differs Date of service: 06/07/20 Time of Service: 15:48 Care Management Progress Note S/O: Sherry was lying in bed when CM met with her. She reported that she continues to improve, however she still feels weak. Today her antibiotics were changed from IV to PO in preparation for discharge. Sherry has been working with PT. She is progressing but continues to complain of discomfort and weakness during sessions. When asked about discharge, Sherry did not seem anxious to leave, citing the fact that she is still weak. CM assured her that there would be a plan for her to have home health services for RN, PT, OT and MONITORING COORDINATOR if needed. She did state that she would also like side rails for her bed to assist with getting OOB. Sherry shared that she works with Yulissa Osorio at [facility] and that she has told her to let CM know if she needs any equipment to prepare for discharge and she would try to help. CM contacted Yulissa who was unable to assist with the siderails but CM will discuss with PT in the morning. A: Sherry is a 64 year old female admitted to [facility] on 06/03/20 for leukocytosis, UTI. P: Anticipate Sherry will return home when medically cleared. PT has recommended HH PT upon discharge. She may also benefit fron RN, OT and/or MONITORING COORDINATOR as well. She will be driven home via private vehicle by her spouse. She will follow up with Urology, her PCP, and discharge plan of care. CM will continue to follow.
--- NOTE | 2020-06-07 16:02 | PGE_ITS ---
Date of Service Date of service: 06/07/20 Time of Service: 16:02 Assessment and Plan Assessment and plan (1) Bacteremia: Status: Resolved Assessment and plan: repeat BC from 06/05 shows no growth @48h. I will dc her Zosyn and treat her w/ Augmentin x 10 more days for complicated E. coli urosepsis. (2) E. coli UTI: Status: Acute Assessment and plan: as above. (3) Acute kidney injury superimposed on CKD: Status: Acute Assessment and plan: despite iv fluids over the weekend and weaver catheter there has been no improvement in her creatinine although her urine output has been good (over 2400 mL/24h). Dr. Ruiz has raised the possibility of her having a diverting urostomy performed which would improve the urinary drainage over that from her ureteral stenosis w/ a stent. (4) Acute on chronic anemia: Status: Acute Assessment and plan: likely d/t LGI bleeding from her radiation proctitis. Hb has been stable over past 4 days since her transfusion. Patient will receive another dose of Venofer. (5) Colovaginal fistula: Status: Acute Assessment and plan: Follow up with her surgeon, Dr. Lauren Zamudio at [facility] (6) Radiation proctitis: Status: Acute Assessment and plan: in light of her perirectal fistulas, she is not a candidate for steroid enemas to treat her proctitis (7) Generalized weakness: Status: Acute Assessment and plan: probably multifactorial including her chronic anemia and recurrent UTI. her generalized weakness has been improving w/ P.T. I will have her continue w/ P.T. at home upon discharge tomorrow. (8) Essential hypertension: Status: Chronic Assessment and plan: patient is back on her Toprol XL and BP is doing ok (9) Diabetes mellitus: Status: Chronic Assessment and plan: hold metformin and glipizide; cover w/ novolog sliding scale and monitor glucose AC/HS. In light of her renal function not improving, I do not feel she is a candidate for continued metformin therapy. Ho wever she may be a candidate for a GLP-1 agonist. Qualifiers: Diabetes mellitus type: type 2 Diabetes mellitus rat exterminator insulin use: without rat exterminator use Diabetes mellitus complication status: with kidney complications Diabetes mellitus complication detail: with other kidney complication Qualified Code(s): E11.29 - Type 2 diabetes mellitus with other diabetic kidney complication (10) Bladder cancer: Status: Chronic Assessment and plan: follow up w/ Dr. Ruiz (urology) and Dr. Verduzco (heme/onc) Qualifiers: Bladder location: unspecified site Qualified Code(s): C67.9 - Malignant neoplasm of bladder, unspecified (11) Hydronephrosis, left: Status: Chronic Assessment and plan: patient has L. ureteral stent changed a little over 2 weeks ago. She is making a good urine output therefore doubtful that she has any obstruction. She is to follow up w/ Dr. Ruiz for further treatment. Subjective Subjective Interval history since last seen: Patient continues to improve she has no fever or chills and no dysuria. She is voiding okay now that the catheter has been removed from her bladder. She has not had any further discussions nor made any decisions regarding having an ileostomy. She is a bit apprehensive about going home but she has been doing well with physical therapy. I discontinued her Zosyn and put her on Augmentin. Her repeat blood cultures have continued show no growth. Upon discharge she will continue on another 10 days of oral antibiotics for E. coli bacteremia secondary to complicated UTI. She will be discharge in the a.m. Exam Narrative Exam Narrative: A&Ox 3, lying in bed, no discomfort Abdomen soft, nontender, no suprpubic tenderness, no flank pain Lungs clear Cor: RRR Objective Last Vital Signs Temp 36.5 C 06/07/20 15:30 Pulse 66 06/07/20 15:30 Resp 17 06/07/20 15:30 BP 108/65 06/07/20 15:30 Pulse Ox 98 06/07/20 15:30 Laboratory Results - last 24 hr 06/07/20 06/07/20 06:15 06:15 WBC 5.92 RBC 3.06 L Hgb 8.3 L Hct 28.0 L MCV 91.5 MCH 27.1 MCHC 29.6 L RDW 19.3 H Plt Count 314 MPV 8.7 Immature Gran % 4.4 Neutrophils % 69.4 Lymphocytes % 14.2 Monocytes % 9.1 Eosinophils % 2.2 Basophils % 0.7 Nucleated RBC % 0 Absolute Neutrophils 4.11 Absolute Lymphocytes 0.84 L Absolute Monocytes 0.54 Absolute Eosinophils 0.13 Absolute Basophils 0.04 Sodium 139 Potassium 4.6 Chloride 104 Carbon Dioxide 24.3 Anion Gap 10.7 BUN 40 H Creatinine 2.7 H Estimated GFR/1.73 m2 17.63 Glucose 147 H Calcium 9.0
[2020-06-07] MEDS: Simvastatin 10 MG TAB PO (21:23)
[2020-06-07 23:36] VITALS: BP 100/57; PULSE 65; RESP 18; TEMP 36.8; O2SAT 96
[2020-06-08 07:15] VITALS: BP 114/74; PULSE 70; RESP 18; TEMP 36.4; O2SAT 97
[2020-06-08] MEDS: Pantoprazole 40 MG TABCR PO (08:26)
[2020-06-08] MEDS: Insulin Aspart 300 UNITS/3 ML PEN SC ×5 (08:27→17:28)
[2020-06-08] MEDS: Amoxicillin 500/Clav. 125 TAB PO (08:47)
[2020-06-08] MEDS: Sertraline 50 MG TAB PO (08:47)
[2020-06-08] MEDS: Lactobacillus Acidophilus CAP 1 CAP PO ×2 (08:47→14:09)
[2020-06-08] MEDS: Metoprolol CR 25 MG TABCR PO (08:47)
[2020-06-08] MEDS: Normal Saline Flush 10 ML SYR IVP (08:48)
[2020-06-08 10:37] VITALS: BP 106/67; PULSE 65; RESP 18; TEMP 36.6; O2SAT 98
--- NOTE | 2020-06-08 10:41 | W.PM.DS.N ---
DS: Diagnosis Discharge Diagnosis (1) Bacteremia: Status: Resolved Asessment and Plan: repeat blood cultures from 06/05 showed her bacteremia had cleared. However patient should finish out current Augmentin then have follow UA in 2 weeks. If she continues to have recurent UTI then she should be evaluated for rectal-bladder fistula, which can be evaluated at the time of her next ureteral stent exchange and cystoscopy. (2) E. coli UTI: Status: Resolved (3) Acute kidney injury superimposed on CKD: Status: Acute Asessment and Plan: Patient had a weaver placed during her initial admission to assess her urinary volume. She was voiding 2400 mL or more per day and she was given iv fluid hydration initially. Her BUN and creatinine on admission was 35 and 2.9 which was up from her baseline of 22 and 1.6 in 2020. Despite iv fluid hydration her BUN and creatinine never corrected. At discharge her BUN and creatinine were [address] Mcmillan spoke w/ the patient about options for improved drainage from her left kidney including creation of diverting urostomy. The patient would like to think about this. Dr. Mcmillan would like the patient to consult w/ her surgeon, Dr. Susan Cagle in case the patient needs a diverting colostomy to allow the rectal fistulas to heal. (4) Acute on chronic anemia: Status: Acute Asessment and Plan: felt to be d/t chronic GI bleeding from radiation proctitis. Treated w/ 1 unit of PRBC this admission w/ rise in Hb from 6.6 to 7.5 gm and further rise to 8.3 gm after receiving Venofer 200 mg IV daily x 3 days. Repeat CBC in one week (5) Colovaginal fistula: Status: Acute Asessment and Plan: follow up w/ Dr. Susan Cagle (6) Radiation proctitis: Status: Acute (7) Generalized weakness: Status: Acute (8) Essential hypertension: Status: Chronic (9) Diabetes mellitus: Status: Chronic (10) Bladder cancer: Status: Chronic Asessment and Plan: follow up w/ Dr. Mcmillan. 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 Patient is followed by Dr. Flakito Verduzco her oncologist as well as Dr. Susan Cagle her general surgeon at [facility]. 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 She has also had complications from radiation treatment including radiation proctitis causing chronic rectal bleeding and a chronic iron deficiency anemia as well as development of left ureteral stricture and chronic left hydronephrosis requiring an indwelling ureteral stent which was most recently changed by Dr. Chris Mcmillan 04/14/2020. She was diagnosed with high-grade noninvasive urothelial cell carcinoma which she was hospitalized with hematuria and underwent cystoscopy by Dr. Chris Mcmillan in November 2018. This has been treated with transurethral bladder resection and gemcitabine. And has required repeated cystoscopy and fulguration and instillation of mitomycin-C. She recently presented to the urology clinic June 01, 2020 with complaints of dysuria and hematuria and urinalysis was positive for moderate blood and leukocyte Estrace and she was started on a course of nitrofurantoin 100 mg twice daily x7 days and the urine culture was sent off and is since returned positive for greater than 100,000 colonies of E. coli with 2 different colonies of E. coli and less than 10,000 colonies of mixed gram-positive tamia. Evaluation in the emergency department clued routine labs and a CT scan of her abdomen pelvis. She is found to have a leukocytosis of 14,000 and a chronic anemia that is worsening with a hemoglobin 7.6 g hematocrit 24%. Has worsening azotemia in the setting of known chronic kidney disease. BUN is elevated 35 creatinine 2.9 whereas her baseline level is 16 and creatinine of 0.97 however her most recent levels were 22 and 1.6 as of 04/22/2020. She has an atrophic right kidney in addition to hydronephrosis of her left kidney and left ureteral stenosis. CT of her abdomen and pelvis w/out contrast demonstrated the known left hydronephrosis and left ureteral stent from the left renal pelvis to the bladder as well as the known Seton drains in the pelvis and gas in the pelvis in the tissues adjacent to one of the Seton catheters. Blood and urine cultures were obtained and the patient was started on Zosyn empirically. Dr. Redmond consulted w/ Dr. Mcmillan who saw the patient in the emergency room and reviewed the CT scan and does not think that the left ureteral stent is obstructed (contrary to the impression of the radiologist's reading) and Dr. Redmond and Dr. Cartagena consulted / [facility] surgery service who reviewed the CT findings and did not feel that the CT warranted transfer and urgent surgical evaluation/intervention. Dr. Cartagena consulted / our surgeon, Dr. Menon who evaluated the patient and reviewed her CT findings, see her note for details. At present the patient will be admitted to [facility] hospitalist service for treatment of complicated UTI and to rule out potential pelvic abscess from her rectovaginal and rectoischial fistulas. Dr. Menon felt that there was no need for any surgical intervention. Dr. Mcmillan felt that her left ureteral stent was functioning in spite of the fact that she has residual hydronephrosis and acute kidney injury. Urine culture collected on June 03, 2020 again demonstrated Gram negative rods but less than 10,000 colonies. Similarly 1 blood culture from June 03, 2020 also demonstrated the same E. coli as the urine culture from 06/01 that was resistant to Cipro and Levaquin but sensitive to all other antibiotics. Patient was continued on Zosyn at renal adjusted doses from her admission on 06/03 through 06/07 when she was switched to Augementin after her repeat blood cultures from 06/05 had shown no growth for 2 days. The patient will be discharged on 10 more days of Augmentin to treat her urosepsis. She will get follow up UA upon completion of her antibiotics and repeat BMP in one week. During her stay her Hb dropped to as low as 6.6 gm on 06/04/2020 at which time she received a transfusion of 1 unit PRBC. She was then put on Venofer 200 mg daily x 3 days. At discharge her Hb had risen to 8.3 gm. She will get repeat CBC in one week. She is to follow up w/ Dr. Mcmillan as outpatient and to follow up w/ her surgeon, Dr. Susan Cagle regarding her rectal fistulas. During her hospitalization she received P.T. to work on her generalized weakness. They recommended continued home P.T. The patient has noted prior to her admission that she has been having some weakness in her left hand but no other symptoms such as paresthesia, headaches, neck pain. It is recommended that she follow up with her PCP about this and consider NCT/EMG of her left arm/hand. She also may need MRI of c-spine and MRI of brain. However, alll of this can be done as outpatient. She should also be considered for periodic iron infusions to prevent her anemia from getting worse, however, repeat iron levels should be done in 6 weeks. Home Meds and New Rx's Prescriptions: New amoxicillin-pot clavulanate [Augmentin] 500-125 mg tablet 1 tab PO BID Qty: 20 RF: 0 Continued Metamucil 3.4 gram/5.4 gram powder 2 tsp PO .Every Other Day RF: 0 simvastatin [Zocor] 10 mg tablet 10 mg PO HS Qty: 90 RF: 4 calcium carbonate 500 MG tablet 1 tab.chew PO BID RF: 0 Emergen-C 1,000 MG powder effervescent in packet 1 packet PO DAILY RF: 0 fluocinolone [Synalar] 120 GM ointment 1 applic Topical BID Qty: 1 RF: 2 acetaminophen 500 mg tablet 500 mg PO BID RF: 0 sertraline 50 mg tablet 50 mg PO DAILY Qty: 90 RF: 3 levothyroxine [Synthroid] 137 mcg tablet 137 mcg PO DAILY Qty: 90 RF: 4 pantoprazole 40 mg tablet,delayed release (DR/EC) 40 mg PO DAILY@0730 Qty: 90 RF: 3 metoprolol succinate 25 mg tablet extended release 24 hr 25 mg PO DAILY Qty: 90 RF: 0 Changed glipizide 2.5 mg tablet extended release 24hr 2.5 mg PO DAILY Qty: 180 RF: 3 Discontinued metformin 500 mg tablet 500 mg PO BID@0800,1700 Qty: 180 RF: 3 potassium chloride 20 mEq tablet extended release 20 meq PO DAILY Qty: 90 RF: 3 nitrofurantoin monohyd/m-cryst [Macrobid] 100 mg capsule 100 mg PO Q12H 7 Days Qty: 14 RF: 0 No Action (DME) lancets 28 gauge misc 1 ea Miscellaneous BID Qty: 300 RF: 4 (DME) Blood Glucose Test Strip 1 ea Miscellaneous BID Qty: 300 RF: 4 (DME) blood-glucose meter 1 EACH misc 1 ea Miscellaneous DAILY Qty: 1 RF: 0 Discharge Instructions Instructions: Urinary Tract Infection in Older Adults (DC) Stand Alone Forms: Nursing Discharge Form Referrals: Diane Leblanc NP [Primary Care Provider] - 06/14/20 1:00 pm Chris Mcmillan MD [ [facility] STAFF PHYSICIAN] - 06/16/20 10:30 am (Dr Mcmillan will call you. telehealth Appt) SARS-COVID,SARS-COVID [OTHER] - 07/04/20 1:00 pm (Go to the [facility] July 04 at 1:00 pm for your second Moderna Vaccine) Activity:: Activity as Tolerated Equipment/Supplies:: No Equipment Needed Diet:: Low Sodium Discharge Orders Other Ambulatory Orders: Basic Metabolic Panel (Routine) Timeframe: 1 Week Facility: [facility] - Location: Laboratory Outpatient Ordered By: Rehan Cleaning Complete Blood Count w/Diff (Routine) Timeframe: 1 Week Facility: [facility] - Location: Laboratory Outpatient Ordered By: Rehan Cleaning DS: Summary Time Spent with Patient providing and/or coordinating discharge services: Greater than 30 minutes Status at Discharge Functional status at discharge: uses cane/walker Overall status at discharge: patient is progressing back to baseline Mental Status: mental status grossly normal Speech and Movement: speech and movement normal Mood: congruent mood Affect: normal affect Exam Narrative Exam Narrative: A&Ox 3, lying in bed, no discomfort Abdomen soft, nontender, no suprpubic tenderness, no flank pain Lungs clear Cor: RRR Psych Mental Status: mental status grossly normal Speech and Movement: speech and movement normal Mood: congruent mood Affect: normal affect DS: Data Vitals/I&O Vitals and I&O: Vital Signs Temperature 36.6 C 06/08/20 10:37 Temperature Source Skin 06/08/20 10:37 Pulse 65 06/08/20 10:37 Pulse Rhythm Regular 06/08/20 07:18 Pulse 85 06/03/20 18:50 Respiratory Rate 18 06/08/20 10:37 Respiratory Effort Non-Labored 06/08/20 07:18 Respiratory Depth Normal 06/08/20 07:18 Respiratory Pattern Normal 06/08/20 07:18 Blood Pressure 106/67 06/08/20 10:37 Blood Pressure Mean 53 06/03/20 18:46 Blood Pressure Position Supine 06/03/20 13:30 Pulse Oximetry 98 06/08/20 10:37 Oxygen Delivery Method Room Air 06/08/20 10:37 Oxygen Flow Rate 0 06/08/20 10:37 Pain Level 2 06/08/20 10:37 Comment 06/06/20 00:15 Intake & Output 06/07/20 06/07/20 06/08/20 11:59 23:59 11:59 Intake Total 240 / 1140 900 / 1140 480 / 480 Output Total 500 / 2350 1850 / 2350 1900 / 1900 Balance -260 / -1210 -950 / -1210 -1420 / -1420 Weight 98.112 kg 95.4 kg Intake: Oral 240 / 1140 900 / 1140 480 / 480 Output: Urine 500 / 2350 1850 / 2350 1900 / 1900 Other: Urine Color Yellow Yellow Yellow Urine Appearance Cloudy Clear Clear Urine Odor Normal Normal None Comment unable to measure d/t patient voided and had BM in commode careful skin care with barrier cream Mixed with feces, but visibily clear yellow Stool Size Moderate Smear Small Stool Characteristics Liquid Soft Liquid Voiding Methods Bedside Commode Bedside Commode Bedside Commode Data Completed and Pending Labs on day of discharge: Preliminary micro results at discharge 06/05/20 07:40 Blood Culture - Preliminary Blood NO GROWTH 72 HOURS 06/05/20 07:50 Blood Culture - Preliminary Blood NO GROWTH 72 HOURS 06/03/20 16:25 Blood Culture - Preliminary Blood NO GROWTH 96 HOURS 06/03/20 14:20 Blood Culture - Preliminary Blood Escherichia coli [facility] Medical History (Updated 06/08/20 @ 10:43 by Rehan Cleaning) Abnormal glandular Papanicolaou smear of cervix (04/10/02) Acute kidney failure Per pt. unilateral kidney. 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 Advanced directives, counseling/discussion Anemia Bladder cancer f/u with dr. mcmillan Bladder incontinence Bowel incontinence Cancer related pain Debility Depression due to physical illness Diabetes mellitus (07/07/12) DVT prophylaxis Essential hypertension (01/02/13) Female infertility GERD (gastroesophageal reflux disease) Goals of care, counseling/discussion Graves' disease Hematuria Hyperlipidemia Hypertension Hypokalemia Hypomagnesemia Hypotension determined by examination Hypothyroidism (07/07/12) H/O GRAVES ophthalmopathy Increased BMI Mass of anus (11/08/17) 11/04/17 -Hyperplastic polyps of descending colon and rectum Invasive keratinizing squamous cell carcinoma -Tumor invading at least rectal mucosa and submucosa [facility] referral initiated by Dr. Wolff Obesity (BMI 30-39.9) Peripheral edema L ankle Rectal cancer Sepsis Shock circulatory Smoker Quit October 2017 - back to smoking several per day 11/27 SVT (supraventricular tachycardia) Per pt. r/t to graves disease. Pt. states she has not had any issues with this for a long time. She states she see's her PCP, to f/u UTI (urinary tract infection) Varicose veins of both lower extremities Surgical History Cervical Procedure (~1989) CRYOTHERAPY Cortical cataract of left eye Cortical cataract of right eye Endometrial Biopsy (~2002) History of bilateral ligation of fallopian tubes (02/01/14) History of gynecological procedure History of tonsillectomy and adenoidectomy Hx of cystoscopy Hx of removal of cyst right lower gluteus kurt Ligation of fallopian tube Nuclear sclerotic cataract of left eye Nuclear sclerotic cataract of right eye Posterior subcapsular age-related cataract of left eye Posterior subcapsular age-related cataract, right eye Family History Mother , of cirrhosis at age 68, likely from lifelong obesity Diabetes Essential hypertension Depression Heart disease Hyperlipidemia Stroke Liver cancer Father , dad aged 55 from AMI Heart disease Myocardial infarction Sister Hyperlipidemia Asthma Grandfather Neoplasm LUNG Grandmother Stroke Son Diabetes Asthma Daughter Anxiety Heart disease BORN WITH ENLARGED HEART Depression Bipolar Social History Smoking/Tobacco Use Status: Current every day Tobacco Type: cigarettes Tobacco: How many years used: 50 Quit status: not considering quitting Counseling given: counseling >3 minutes Smoking risk assessment performed?: Yes Alcohol Intake: never Drug use: Never Substance use type: does not use Counseling given: No Counseling provided: none Caregiver/Support person: No Household members: spouse and none Housing: apartment Do you need help understanding health information?: Rarely 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 Pets and animals: No Sexually active: No Do you think of yourself as: straight/heterosexual Current gender identity: decline to answer What is your relationship status?: How often do you talk on the phone with friends or family?: three or more times per week How often do you get together with friends or relatives?: decline to answer How often do you attend oriental orthodox or religion services?: decline to answer Do you belong to any clubs or organized social groups?: decline to answer Panel score (0-1 are the most socially isolated patients): 2 What type of physical activity do you participate in: none Duration: decline to answer Frequency: decline to answer Miranda/Rastafarian: Islam Special miranda needs: No Seatbelt use: always Helmet use: No Drive intox or ride w/intox public transit bus driver: No Do you feel safe at home: Yes Do you feel safe in your relationship?: Yes
--- NOTE | 2020-06-08 10:59 | PDOC.HHF2F_ITS ---
Home Health Certification Home Health Certification: 1. Encounter Date and Reason I certify that EVERETT JENKINS was seen by Rehan Cleaning on 06/08/20 and that I had a [id number] encounter with this patient that meets the physician face to face encounter requirements. 2. Clinical Findings Supporting Skilled Need and Homebound Status I certify that home health services are medically necessary, include either intermittent senior care and/or physical/speech therapy, and that this p atient is homebound in that absences from the home require considerable and taxing effort and are infrequent or of short duration, or are attributable to the need to receive medical care. [X] (a) Attached documentation from encounter provides clinical findings supporting skilled need and homebound status (including what assistance patient requires to leave the home). The encounter with the patient was in whole, or in part, for the following medical condition, which is the primary reason for home health care: LEUKOCYTOOSIS,UTI, bacteremia, acute kidney injury Longterm: Visiting nurse to monitor patient for signs and symptoms of recurrent urinary tract infection assist with obtaining labs as well as coordination of her medications with her primary care provider. GLUE MILL OPERATOR to assist with coordination of patient's benefits and assist the patient with arranging outpatient services with the patient's providers. Physical Therapy: Physical therapy to work with the patient regarding her generalized weakness and deconditioning caused by her acute illness from her bacteremia and UTI. Speech Therapy: Homebound: Patient is homebound due to severe weakness caused by her acute illness which makes travel outside her home I hazard to her health. 3. Certification and Authentication I certify that I composed the above information based on my clinical judgement relating to this patient's medical condition and, if applicable, clinical findings communicated to me by the NPP or inpatient physician who performed the Home Health Referral. All further orders will be obtained through Diane Leblanc ____ (Community Based Physician - PCP)
--- NOTE | 2020-06-08 11:42 | CHAPLAIN ---
Sherry has a complicated medical history. Her has dementia and is at [facility] Dr. Riggins did a Palliative consult with Sherry and she expressed concern about being depend on others, and said she is more interested in quality of life than quantity and she really does not want to be in pain any more. Her daughter is a support for her. Boris was raised in [place], but has not attended in many years. She expects to be discharged today. She seemed a bit hesitant about being discharged.
--- NOTE | 2020-06-08 13:52 | PDOC.CMDIS ---
- If Service Date Differs Date of service: 06/08/20 Time of Service: 13:53 LACE Index Scoring Tool - Questions: Length of Stay (in days): 4 - 6 Acuity (Admit via E.D.?): Yes Comorbidities: Diabetes w/o Complication, Any Tumor E.D. Visits: 3 - Answers: Total Score: 13 Risk of Readmission: High Risk Care Management Discharge Reason for Hospitalization: Leukocytosis, UTI Discharge Plan: Sherry will return home today with new orders for RN, PT, OT, FLIGHT HOSTESS. contacted [facility] to inform them of her discharge today. Her daughter will drive her home via private vehicle when she is available, late this afternoon. She will follow up with her PCP and discharge plan of care. She is happy to be going home. Patient/Family Education Needs: Review discharge instructions regarding activity levels and medications, discussion of self care needs including ask me three. Services Needed at Discharge: Home Health Care Services (RN, PT, OT, FLIGHT HOSTESS)
[2020-06-08] MEDS: Acetaminophen 325 MG TAB PO (14:12)
[2020-06-08 14:45] VITALS: BP 104/70; PULSE 66; RESP 18; TEMP 36.7; O2SAT 97
--- NOTE | 2020-06-08 14:58 | NUR.NOTE ---
Nursing Note: 1435: informed pt's primary RNGeraldine that patient felt warm to the touch. pt states she does feel warm. temperature obtained by primary RN which was 36.4. pt returned to bed, room temperature decreased. continue to monitor.
--- NOTE | 2020-06-10 12:58 | INDS_ITS ---
Date of service: 06/10/20 Time of Service: 12:58 PT Notes Visit Reasons: LEUKOCYTOOSIS,UTI Physical Therapy Inpatient Discharge Summary Date: 06/10/20 Dates of service: 06/05/2020 3 06/07/2020 This is a clinical summary of care provided on the duration of dates listed above. No charge was made in the completion of this documentation. Referring Doctor: Rehan Cleaning MD PT Orders: PT CONSULT: Exacerbation of condition evaluate and treat generalized weakness Precautions: Standard. Fall. Patient Profile/Admitting Diagnosis: Patient is a 64-year-old female admitted to [facility] on June 03, 2020 when she arrived at the ER complaints of generalized weakness, dysuria and fever for the past few days. 64-year-old female with a history of frequent UTIs w/ ureteral stent placed 2 weeks ago, rectal cancer, rectocutaneous fistula managed with chronic tubing, 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 PMHX: Medical History (Updated 06/04/20 @ 00:11 by Rehan Cleaning) Abnormal glandular Papanicolaou smear of cervix (04/10/02) Acute kidney failure Per pt. unilateral kidney. 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 Advanced directives, counseling/discussion Anemia Bladder cancer f/u with dr. mcmillan Bladder incontinence Bowel incontinence Cancer related pain Debility Depression due to physical illness Diabetes mellitus (07/07/12) DVT prophylaxis Essential hypertension (01/02/13) Female infertility GERD (gastroesophageal reflux disease) Goals of care, counseling/discussion Graves' disease Hematuria Hyperlipidemia Hypertension Hypokalemia Hypomagnesemia Hypotension determined by examination Hypothyroidism (07/07/12) H/O GRAVES ophthalmopathy Increased BMI Mass of anus (11/08/17) 11/04/17 -Hyperplastic polyps of descending colon and rectum Invasive keratinizing squamous cell carcinoma -Tumor invading at least rectal mucosa and submucosa [facility] [place] referral initiated by Dr. Wolff Obesity (BMI 30-39.9) Peripheral edema L ankle Rectal cancer Sepsis Shock circulatory Smoker Quit October 2017 - back to smoking several per day 11/27 SVT (supraventricular tachycardia) Per pt. r/t to graves disease. Pt. states she has not had any issues with this for a long time. She states she see's her PCP, to f/u UTI (urinary tract infection) Varicose veins of both lower extremities Surgical History Cervical Procedure (~1989) CRYOTHERAPY Cortical cataract of left eye Cortical cataract of right eye Endometrial Biopsy (~2002) History of bilateral ligation of fallopian tubes (02/01/14) History of gynecological procedure History of tonsillectomy and adenoidectomy Hx of cystoscopy Hx of removal of cyst right lower gluteus kurt Ligation of fallopian tube Nuclear sclerotic cataract of left eye Nuclear sclerotic cataract of right eye Posterior subcapsular age-related cataract of left eye Posterior subcapsular age-related cataract, right eye Social History/Home Situation: Lives with her in an apartment in [facility]. Steps with railing entering the dwelling. Equipment Owned/DME: Front wheeled walker, single-point cane. Subjective: NT. See most recent HOT DOG VENDOR notes. Objective: General Observation: NT. See most recent HOT DOG VENDOR notes. Mental Status: NT. See most recent HOT DOG VENDOR notes. Pain: NT. See most recent HOT DOG VENDOR notes. ROM: Right Upper Extremity: 135 degrees of active elevation right shoulder, AA 145, elbow flexion extension within normal limits. Left Upper Extremity: 110 degrees active elevation left shoulder (dominant arm), active assisted 145. Of flexion extension within normal limits Right Lower Extremity: Within functional limits Left Lower Extremity: Within functional limits Strength: Right Upper Extremity: Glenohumeral joint flexion and abduction 4 -/5, bicep tricep 4/5. Good equine manager Left Upper Extremity: Glenohumeral joint flexion and abduction 3+/5, bicep 4 - /5, tricep 4 -/5. Good equine manager Right Lower Extremity: Patient perform straight leg raise with 0 degree lag. Hip flexion 4 -/5, quads and hamstrings 4 -/5, plantar and dorsiflexion 4/5 Left Lower Extremity: Straight leg raises 0 degree lag. Hip flexion, quads and hamstrings 4 -/5, plantarflexion and dorsiflexion 4/5. Sensation: Patient reports intact sensation light touch bilateral lower extremi ties Bed Mobility/Transfers: Bed mobility: Supervision Supine to sit: Supervision Sit to stand: Supervision Stand to sit: Supervision Gait: Patient ambulates for 100 feet +150 feet with front-wheeled walker and supervision. Balance: Static Sitting: Normal Dynamic Sitting: Normal Static Standing: Fair Dynamic Standing: Fair Assessment: Valorie has demonstrated significant functional mobility improvement during this episode of care. Patient is a 64 year old left hand dominant female referred to physical therapy services with the diagnosis of UTI, leukocytosis. Goals: Goals X1 week 1. Supine-Sit : Standby assist MET 2. Sit-Supine: Standby assist MET 3. Sit-Stand: Standby assist to front wheeled walker MET 4. Stand-Sit: Standby assist from front wheeled walker MET 5. Bed-Chair: Standby assist with use of front wheeled walker MET 6. Chair-Bed: Standby assist with use of front wheeled walker MET 7. Gait patient ambulate greater than equal to 150 feet with use of front wheeled walker standby assist MET 8. Stairs: patient negotiate 4 steps with railing up and down by assist MET DISCHARGE RECOMMENDATIONS: Patient will benefit from home health PT services in order to progress mobility level using least restrictive assistive ambulatory device, assess home safety, identify additional equipment needs, and establish a functional maintenance program that will increase ability of patient to remain at home. TREATMENT CODE/TIME: NC. Thank you for the opportunity to participate in the care of this patient. Dea Tna PT, DPT, CLT [facility] [place], [place]
== END 2020-06-08 17:56 | disposition home health service (06) | DRG 683 ==
LOC: ER 20:54 → MS 20:56
PROVIDERS: Physician Assistant; Admitting Provider Internal Medicine; Emergency Provider Student in an Organized Health Care Education/Training Program; Visit Provider Internal Medicine
DX: N17.9 Acute kidney failure, unspecified (principal); N39.0 Urinary tract infection, site not specified; N82.3 Fistula of vagina to large intestine; R78.81 Bacteremia; B96.20 Unspecified Escherichia coli [E. coli] as the cause of diseases classified elsewhere; K62.7 Radiation proctitis; Y84.2 Radiological procedure and radiotherapy as the cause of abnormal reaction of the patient, or of later complication, without mention of misadventure at the time of the procedure; N13.1 Hydronephrosis with ureteral stricture, not elsewhere classified; R53.1 Weakness; I12.9 Hypertensive chronic kidney disease with stage 1 through stage 4 chronic kidney disease, or unspecified chronic kidney disease; E11.22 Type 2 diabetes mellitus with diabetic chronic kidney disease; C67.9 Malignant neoplasm of bladder, unspecified; Z85.048 Personal history of other malignant neoplasm of rectum, rectosigmoid junction, and anus; D50.9 Iron deficiency anemia, unspecified; N26.1 Atrophy of kidney (terminal); R15.9 Full incontinence of feces; R32 Unspecified urinary incontinence; G89.3 Neoplasm related pain (acute) (chronic); F32.9 Major depressive disorder, single episode, unspecified; K21.9 Gastro-esophageal reflux disease without esophagitis; E05.00 Thyrotoxicosis with diffuse goiter without thyrotoxic crisis or storm; E78.5 Hyperlipidemia, unspecified; E87.6 Hypokalemia; E83.42 Hypomagnesemia; E66.9 Obesity, unspecified; Z68.36 Body mass index [BMI] 36.0-36.9, adult; F17.210 Nicotine dependence, cigarettes, uncomplicated; I83.93 Asymptomatic varicose veins of bilateral lower extremities
CPT/HCPCS: 36410; 36415; 36416; 36430; 51701; 80048; 80053; 82962; 84145; 86850; 86900; 86901; 86920; 87040; 87077; 87493; 87635; 93005; 96361; 96365; 96366; 96367; 97162; 97530; 99222; 99223; 99232; 99233; 99239; 99253; 99255; 99285; 74176; 81003; 81015; 82728; 83540; 83550; 83605; 83735; 85014; 85018; 85025; 86140; 87086; 87186; 93010; J0131; J1756; J2543; J3475; P9016

== ENCOUNTER 2020-06-15 15:56 | Outpatient (REF) | payer MEDICARE, OTHER, SELFPAY ==
[2020-06-15 15:25] LABS: Abs Immature Grans 0.17 10^3/uL (0.0-0.06); Absolute Basophil Count 0.07 10^3/uL (0.0-0.2); Absolute Eosinophil Count 0.09 10^3/uL (0.0-0.7); Absolute Lymphocyte Count 0.96 10^3/uL (1.2-3.4); Absolute Monocyte Count 0.45 10^3/uL (0.1-0.8); Absolute Neutrophil Count 4.77 10^3/uL (1.2-6.7); Basophils % 1.1; Eosinophils % 1.4; HCT 30.4 % (36.0-46.0); HGB 9.2 g/dL (11.2-15.7); Immature Grans % 2.6; Lymphocytes % 14.7; MCH 27.8 pg (27.0-33.0); MCHC 30.3 % (32.0-36.0); MCV 91.8 fL (80-95); MPV 9.2 fL (8.0-11.0); Monocytes % 6.9; Neutrophils % 73.3; Nucleated RBC 0 %; Platelet Count 360 10^3/uL (130-400); RBC 3.31 10^6/uL (3.93-5.22); RDW 20.2 % (11.7-14.6); WBC 6.51 10^3/uL (4.4-10.8)
[2020-06-15 15:58] LABS: Anion Gap 12.5 mmol/L (3-11); BUN 24 mg/dL (7-18); CO2 22.5 mmol/L (21.0-32.0); CREATININE 1.8 mg/dL (0.55-1.02); Calcium 9.6 mg/dL (8.5-10.1); Chloride 104 mmol/L (98-107); Estimated GFR 28.15 (mL/min/1.73m2); Glucose 88 mg/dL (74-106); Potassium 4.6 mmol/L (3.5-5.1); Sodium 139 mmol/L (136-145)
== END 2020-06-15 15:57 | disposition home or self-care (01) ==
LOC: LBN 15:56
PROVIDERS: Visit Provider Internal Medicine
DX: C21.0 Malignant neoplasm of anus, unspecified (principal); D64.9 Anemia, unspecified; C67.9 Malignant neoplasm of bladder, unspecified; E78.5 Hyperlipidemia, unspecified; N17.9 Acute kidney failure, unspecified
CPT/HCPCS: 80048; 85025

== ENCOUNTER 2020-06-22 14:43 | Outpatient (REF) | payer MEDICARE, OTHER, SELFPAY ==
[2020-06-22 15:38] LABS: HCT 28.9 % (36.0-46.0); HGB 8.8 g/dL (11.2-15.7)
[2020-06-22 16:03] LABS: Iron 36 ug/dL (50-170)
[2020-06-22 16:04] LABS: Hemoglobin A1C 6.1 % (<5.7)
[2020-06-22 16:08] LABS: Bilirubin Negative (Negative); Blood Trace-intact (Negative); Clarity Clear (Clear); Glucose Negative (Negative); Ketones Negative (Negative); Leukocyte Esterase Negative (Negative); Nitrite Negative (Negative); Specific Gravity 1.015 (1.005-1.025); Urobilinogen 0.2 EU/dL (Up TO 0.2); pH 5.5 (5-8)
[2020-06-22 16:15] LABS: ALT 24 U/L (14-59); AST 14 U/L (15-37); Albumin 3.2 g/dL (3.4-5.0); Alkaline Phosphatase 106 U/L (46-116); Anion Gap 9.7 mmol/L (3-11); BUN 20 mg/dL (7-18); Bilirubin, Total 0.1 mg/dL (0.2-1.0); CO2 25.3 mmol/L (21.0-32.0); CREATININE 1.8 mg/dL (0.55-1.02); Chloride 103 mmol/L (98-107); Estimated GFR 28.15 (mL/min/1.73m2); Ferritin 854 ng/mL (8-252); Glucose 155 mg/dL (74-106); Potassium 4.2 mmol/L (3.5-5.1); Sodium 138 mmol/L (136-145); TSH (W/Ref FT4) 0.37 uIU/mL (0.36-3.74); Total Protein 6.8 g/dL (6.4-8.2)
[2020-06-22 16:21] LABS: Bacteria Few HPF (Negative); C & S Indicated? Yes; Casts Negative LPF (Negative); Crystals Negative HPF (Negative); Epithelial Cells Few HPF (Negative); Mucus Negative (Negative); RBC 0-2 HPF (0-2)
== END 2020-06-22 14:44 | disposition home or self-care (01) ==
LOC: LBN 14:43
PROVIDERS: Internal Medicine
DX: E11.9 Type 2 diabetes mellitus without complications (principal); D64.9 Anemia, unspecified; E03.9 Hypothyroidism, unspecified; N39.0 Urinary tract infection, site not specified; E83.42 Hypomagnesemia; G89.3 Neoplasm related pain (acute) (chronic); N13.30 Unspecified hydronephrosis; K21.9 Gastro-esophageal reflux disease without esophagitis; I10 Essential (primary) hypertension
CPT/HCPCS: 80053; 81003; 81015; 82728; 83036; 83540; 84443; 85014; 85018; 87086

== ENCOUNTER → 2020-06-29 08:25 | Outpatient (BNVA) | payer MEDICARE, OTHER, SELFPAY | PROVIDERS: Visit Provider Urology | DX: N13.30 Unspecified hydronephrosis (principal) | CPT/HCPCS: 99213; 99443 ==

== ENCOUNTER 2020-08-02 03:07 | Outpatient (CLI) | payer MEDICARE, OTHER, SELFPAY ==
[2020-08-02 14:38] LABS: Source Nasal/Nares
[2020-08-02 18:38] LABS: COVID-19 PCR Negative (Negative)
== END 2020-08-02 03:08 | disposition home or self-care (01) ==
LOC: LBO 03:08
PROVIDERS: Visit Provider Urology
DX: Z20.822 Contact with and (suspected) exposure to COVID-19 (principal); Z01.818 Encounter for other preprocedural examination
CPT/HCPCS: 87635

== ENCOUNTER 2020-08-04 06:09 | Day surgery (SDC) | payer MEDICARE, OTHER, SELFPAY ==
[2020-08-04 06:15] VITALS: BP 105/58; PULSE 76; RESP 18; TEMP 36.4; O2SAT 98
[2020-08-04] MEDS: Lactated Ringers 1,000 ML 80 ML IV (06:39)
--- NOTE | 2020-08-04 06:51 | HPE_ITS ---
Date of service: 08/04/20 Time of Service: 06:51 Assessment and Plan Assessment and plan (1) Hydronephrosis, left: Status: Chronic Assessment and plan: Cystoscopy with stent change. If we identify any bladder mucosal abnormality, we will be prepared to resect or cauterize the area. (2) Bladder cancer: Status: Chronic Qualifiers: Bladder location: unspecified site Qualified Code(s): C67.9 - Malignant neoplasm of bladder, unspecified History of Present Illness History of Present Illness Chief Complaint: Left hydronephrosis Narrative: This is a 64-year-old woman who has a history of anal cancer. She has been treated with combinations of surgical procedures, radiation and chemotherapy. She has left hydronephrosis which we suspected was related to the radiation treatments. No ureteral mass was identified. She is is managed with an indwelling stent. She does have a history of bladder cancer. She was treated with transurethral resection followed by intravesical chemotherapy treatments. She presents now for a scheduled left ureteral stent change. If we identify a bladder tumor on today's cystoscopy, we will be prepared to resect and cauterize the area. Review of Systems Narrative: No fevers or chills No vision change or dysphasia Hypothyroidism No shortness of breath, cough or hemoptysis No chest pain or palpitations Hx GERD. No hepatitis, ulcers, jaundice No seizures, strokes or peripheral neuropathy No bleeding disorders No gout [facility] Medical History Abnormal glandular Papanicolaou smear of cervix (04/10/02) Acute kidney failure Per pt. unilateral kidney. 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 Advanced directives, counseling/discussion Anemia Bladder cancer f/u with dr. mcmillan Bladder incontinence Bowel incontinence Cancer related pain Debility Depression due to physical illness Diabetes mellitus (07/07/12) DVT prophylaxis Essential hypertension (01/02/13) Female infertility GERD (gastroesophageal reflux disease) Goals of care, counseling/discussion Graves' disease Hematuria Hyperlipidemia Hypertension Hypokalemia Hypomagnesemia Hypotension determined by examination Hypothyroidism (07/07/12) H/O GRAVES ophthalmopathy Increased BMI Mass of anus (11/08/17) 11/04/17 -Hyperplastic polyps of descending colon and rectum Invasive keratinizing squamous cell carcinoma -Tumor invading at least rectal mucosa and submucosa [facility] referral initiated by Dr. Wolff Obesity (BMI 30-39.9) Peripheral edema L ankle Rectal cancer Sepsis Shock circulatory Smoker Quit October 2017 - back to smoking several per day 11/27 SVT (supraventricular tachycardia) Per pt. r/t to graves disease. Pt. states she has not had any issues with this for a long time. She states she see's her PCP to f/u UTI (urinary tract infection) Varicose veins of both lower extremities Surgical History Cervical Procedure (~1989) CRYOTHERAPY Cortical cataract of left eye Cortical cataract of right eye Endometrial Biopsy (~2002) History of bilateral ligation of fallopian tubes (02/01/14) History of gynecological procedure History of tonsillectomy and adenoidectomy Hx of cystoscopy Hx of removal of cyst right lower gluteus kurt Ligation of fallopian tube Nuclear sclerotic cataract of left eye Nuclear sclerotic cataract of right eye Posterior subcapsular age-related cataract of left eye Posterior subcapsular age-related cataract, right eye Family History Mother , of cirrhosis at age 68, likely from lifelong obesity Diabetes Essential hypertension Depression Heart disease Hyperlipidemia Stroke Liver cancer Father , dad aged 55 from AMI Heart disease Myocardial infarction Sister Hyperlipidemia Asthma Grandfather Neoplasm LUNG Grandmother Stroke Son Diabetes Asthma Daughter Anxiety Heart disease BORN WITH ENLARGED HEART Depression Bipolar Social History Smoking/Tobacco Use Status: Current every day Tobacco Type: cigarettes Tobacco: How many years used: 50 Quit status: not considering quitting Counseling given: counseling >3 minutes Smoking risk assessment performed?: Yes Alcohol Intake: never Drug use: Never Substance use type: does not use Counseling given: No Counseling provided: none Caregiver/Support person: No Household members: spouse and none Housing: apartment Do you need help understanding health information?: Rarely 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 Pets and animals: No Sexually active: No Do you think of yourself as: straight/heterosexual Current gender identity: decline to answer What is your relationship status?: How often do you talk on the phone with friends or family?: three or more times per week How often do you get together with friends or relatives?: decline to answer How often do you attend yazidi or faith services?: decline to answer Do you belong to any clubs or organized social groups?: decline to answer Panel score (0-1 are the most socially isolated patients): 2 What type of physical activity do you participate in: none Duration: decline to answer Frequency: decline to answer Miranda/Pentecostalism: Scientology Special miranda needs: No Seatbelt use: always Helmet use: No Drive intox or ride w/intox rental car ferry driver: No Do you feel safe at home: Yes Additional Social history: lives alone Meds Allergies and Home Medications Allergies Allergy/AdvReac Type Severity Reaction Status Date / Time copper Allergy Skin Rash Verified 08/04/20 06:22 lidocaine Allergy Itching-all Verified 08/04/20 06:22 the fabby codeine AdvReac tired Verified 08/04/20 06:22 latex AdvReac eczema Verified 08/04/20 06:22 flares up oxycodone AdvReac pt.unsure Verified 08/04/20 06:22 of reaction Home Medications Medication Instructions Recorded Confirmed Type calcium carbonate 1 tab.chew PO BID 06/29/12 08/02/20 History blood-glucose meter #1 ea 10/04/14 08/02/20 History Emergen-C 1 packet PO DAILY 07/26/15 08/04/20 History fluocinolone [Synalar] 1 applic TOPICAL BID #1 script 03/28/16 08/02/20 History psyllium husk 3.4 gram/5.4 gram 2 tsp PO .Every Other Day gm 12/01/18 08/04/20 History oral powder blood sugar diagnostic #300 strip 01/13/19 08/02/20 Rx lancets 28 gauge #300 each 01/13/19 08/02/20 Rx acetaminophen 500 mg tablet 500 mg PO BID tab 05/14/19 08/04/20 History levothyroxine 137 mcg tablet 137 mcg PO DAILY #90 tab-cap 02/03/20 08/04/20 Rx pantoprazole 40 mg tablet,delayed 40 mg PO DAILY@0730 #90 tab 03/23/20 08/04/20 Rx release metoprolol succinate 25 mg 25 mg PO DAILY #90 tab 04/11/20 08/04/20 Rx tablet,extended release 24 hr simvastatin 10 mg tablet 10 mg PO HS #90 tab-cap 05/17/20 08/04/20 Rx amoxicillin-pot clavulanate 1 tab PO BID #20 tab 06/08/20 07/10/20 Rx [Augmentin] glipizide 2.5 mg PO DAILY #180 tab 06/08/20 08/04/20 Rx sertraline 100 mg tablet 100 mg PO DAILY #90 tab 07/14/20 08/04/20 Rx Exam Const General: cooperative and other (appears chronically ill) Neck Neck: supple Resp Effort & Inspection: normal respiratory effort Auscultation: clear to auscultation bilaterally Cardio Rate: regular rate Rhythm: regular rhythm GI Palpation: not firm and no guarding Neuro General: patient alert, patient awake and patient oriented x3 Results Last Vital Signs Temp 36.4 C L 08/04/20 06:15 Pulse 76 08/04/20 06:15 Resp 18 08/04/20 06:15 BP 105/58 L 08/04/20 06:15 Pulse Ox 98 08/04/20 06:15 COVID-19 Screening Have you, or household traveled for leisure in last 14 days?: No Had IN PERSON contact w/suspected or confirmed C-19 person: No
--- NOTE | 2020-08-04 06:54 | ANES.PREOP_ITS ---
General Info Date of Service Date Performed: 08/04/20 Height: 5 ft 4 in Weight: 92.2 kg Body Mass Index (BMI): 34.9 Surgical Procedure: Operation Date: 08/04/20 07:40 Proposed Procedures Side Surgeon p Transurethral Resection Bladder Tumor POSSIBLE,CYSTO Chris Mcmillan MD s Cystoscopy with Stent CHANGE Chris Mcmillan MD Meds Allergies and Home Medications Allergies Allergy/AdvReac Type Severity Reaction Status Date / Time copper Allergy Skin Rash Verified 08/04/20 06:22 lidocaine Allergy Itching-all Verified 08/04/20 06:22 the fabby codeine AdvReac tired Verified 08/04/20 06:22 latex AdvReac eczema Verified 08/04/20 06:22 flares up oxycodone AdvReac pt.unsure Verified 08/04/20 06:22 of reaction Home Medication Medication Instructions Recorded calcium carbonate 1 tab.chew PO BID 06/29/12 blood-glucose meter #1 ea 10/04/14 Emergen-C 1 packet PO DAILY 07/26/15 fluocinolone [Synalar] 1 applic TOPICAL BID #1 script 03/28/16 psyllium husk 3.4 gram/5.4 gram 2 tsp PO .Every Other Day gm 12/01/18 oral powder blood sugar diagnostic #300 strip 01/13/19 lancets 28 gauge #300 each 01/13/19 acetaminophen 500 mg tablet 500 mg PO BID tab 05/14/19 levothyroxine 137 mcg tablet 137 mcg PO DAILY #90 tab-cap 02/03/20 pantoprazole 40 mg tablet,delayed 40 mg PO DAILY@0730 #90 tab 03/23/20 release metoprolol succinate 25 mg 25 mg PO DAILY #90 tab 04/11/20 tablet,extended release 24 hr simvastatin 10 mg tablet 10 mg PO HS #90 tab-cap 05/17/20 amoxicillin-pot clavulanate 1 tab PO BID #20 tab 06/08/20 [Augmentin] glipizide 2.5 mg PO DAILY #180 tab 06/08/20 sertraline 100 mg tablet 100 mg PO DAILY #90 tab 07/14/20 Current Visit Medications: Current Medications Generic Name Dose Route Start Last Admin Trade Name Freq PRN Reason Stop Dose Admin Ringer's Solution 1,000 mls @ 80 mls/hr 08/04/20 06:00 08/04/20 06:39 IV 09/02/20 23:59 80 mls/hr INFUSION HARRIET Administration Cefazolin Sodium/Dextrose 2 gm in 50 mls @ 100 mls/hr 08/04/20 06:00 Ancef Duplex IVPB 08/04/20 16:00 PREOP HARRIET IV Miscellaneous Supplies 1 each 08/04/20 06:00 Iv Access IV 09/02/20 23:59 DIRECTED HARRIET Sodium Chloride 0 ml 08/04/20 06:00 Normal Saline Flush 10 Ml Syr IV 09/02/20 23:59 PRN PRN Sodium Chloride 0 ml 08/04/20 06:00 Normal Saline 10 Ml Vial IJ 09/02/20 23:59 DIRECTED PRN Sterile Water 0 ml 08/04/20 06:00 Water,Injection,Sterile 10 Ml Vial IJ 09/02/20 23:59 DIRECTED PRN PFSH Active Problems Active Problems: Problem Status Onset Code Gastroesophageal reflux disease K21.9 Varicose veins of lower extremity I83.90 Dysfunctional uterine bleeding 02/07/02 N93.8 Abnormal cervical Papanicolaou smear 07/03/12 R87.619 Acute UTI N39.0 Hydronephrosis, left N13.30 Frequent UTI N39.0 Acute kidney injury superimposed on CKD N17.9, N18.9 Hyponatremia E87.1 Generalized weakness R53.1 Acute on chronic anemia D64.9 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 Acquired anal stenosis K62.4 Chronic back pain M54.9, G89.29 Colovaginal fistula 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 Palliative care patient Z51.5 Physician orders for life-sustaining treatment (POLST) form indicates patient wish for [id number] status Z66 DNR (do not resuscitate) Z66 UTI (urinary tract infection) N39.0 Bowel incontinence R15.9 Bladder incontinence R32 Bladder cancer C67.9 Hematuria R31.9 Depression due to physical illness Debility R53.81 Peripheral edema R60.9 Cancer related pain G89.3 Advanced directives, counseling/discussion Z71.89 Goals of care, counseling/discussion Z71.89 Acute kidney failure N17.9 Hypomagnesemia E83.42 Anemia D64.9 Smoker F17.200 Mass of anus 11/08/17 K62.89 Increased BMI R63.8 Hypothyroidism 07/07/12 E03.9 Hyperlipidemia E78.5 Essential hypertension 01/02/13 I10 Diabetes mellitus 07/07/12 E11.9 Medical History Medical History Abnormal glandular Papanicolaou smear of cervix (04/10/02) Acute kidney failure Per pt. unilateral kidney. Other kidney is size of a pea, never fully matured . Advanced directives, counseling/discussion Anemia Bladder cancer f/u with dr. mcmillan Bladder incontinence Bowel incontinence Cancer related pain Debility Depression due to physical illness Diabetes mellitus (07/07/12) DVT prophylaxis Essential hypertension (01/02/13) Female infertility GERD (gastroesophageal reflux disease) Goals of care, counseling/discussion Graves' disease Hematuria Hyperlipidemia Hypertension Hypokalemia Hypomagnesemia Hypotension determined by examination Hypothyroidism (07/07/12) H/O GRAVES ophthalmopathy Increased BMI Mass of anus (11/08/17) 11/04/17 -Hyperplastic polyps of descending colon and rectum Invasive keratinizing squamous cell carcinoma -Tumor invading at least rectal mucosa and submucosa [facility] [place] Dr. Wolff Obesity (BMI 30-39.9) Peripheral edema L ankle Rectal cancer Sepsis Shock circulatory Smoker Quit October 2017 - back to smoking several per day 11/27 SVT (supraventricular tachycardia) Per pt. r/t to graves disease. Pt. states she has not had any issues with this for a long time. She states she see's her PCP to f/u UTI (urinary tract infection) Varicose veins of both lower extremities Surgical History Surgical History Cervical Procedure (~1989) CRYOTHERAPY Cortical cataract of left eye Cortical cataract of right eye Endometrial Biopsy (~2002) History of bilateral ligation of fallopian tubes (02/01/14) History of gynecological procedure History of tonsillectomy and adenoidectomy Hx of cystoscopy Hx of removal of cyst right lower gluteus kurt Ligation of fallopian tube Nuclear sclerotic cataract of left eye Nuclear sclerotic cataract of right eye Posterior subcapsular age-related cataract of left eye Posterior subcapsular age-related cataract, right eye Tobacco Smoking/Tobacco Use Status: Current every day Tobacco Type: cigarettes Smoking cigarettes per day: 4 Tobacco: How many years used: 50 Passive smoking exposure: No Quit Status: not considering quitting Counseling given: counseling >3 minutes Alcohol Alcohol Intake: never Substance Use Substance use: Never Substance use type: does not use Counseling given: No Counseling provided: none Vital Signs and Lab Results Vital Signs Most Recent Vital Signs in EMR: Most Recent Vital Signs Temp Pulse Resp BP Pulse Ox 36.4 C L 76 18 105/58 L 98 08/04/20 06:15 08/04/20 06:15 08/04/20 06:15 08/04/20 06:15 08/04/20 06:15 Lab Results Blood Type / Crossmatch: No Data to Display Complete Blood Count: No Data to Display Complete Metabolic Panel: No Data to Display Liver Function Panel: No Data to Display Coagulation Panel: No Data to Display Cardiac Panel: No Data to Display Arterial Blood Gas: No Data to Display Venous Blood Gas: No Data to Display Pancreas Panel: No Data to Display Thyroid Panel: No Data to Display Infectious Disease: Coronavirus (COVID-19)(PCR) Negative (Negative) 08/02/20 09:57 08/02/20 Coronavirus 2019 Source Nasal/nares 08/02/20 09:57 08/02/20 Blood Cultures: No Data to Display Toxicology Panel: No Data to Display Anesthesia Assessment and Plan Anesthesia History Personal History: No History of Anesthesia Complications Family History: No Family History of Anesthesia Complications Exercise Tolerance Exercise Tolerance: Metabolic Equivalents<4 Pertinent Negatives Pertinent Negatives: No Symptoms of GERD, No Major Cardiovascular Symptoms or Complaints and No Major Pulmonary Symptoms or Complaints Cardiac & Pulmonary Exam Cardiac Exam: Normal S1/S2 Heart Sounds Pulmonary Exam: Clear Bilateral Breath Sounds Airway Exam Known Difficult Airway: No Mallampati Class: 2 Mouth Opening: Normal (> 3cm) Thyromental Distance: Greater than 3 cm Neck Range of Motion: Full ROM Neck Circumference: Normal Teeth Condition: Removable Dentures/Plates Upper, Removable Dentures/Plates Lower and Edentulous ASA Classification ASA Score: ASA 3 Emergency Case?: No NPO Status NPO Status: NPO Clears >2 hours, Solids >8 hours Anesthesia Plan Resuscitation Status: Full Code Anesthesia Technique: General Anesthesia Airway Planned: Natural Airway Monitors Used: Standard Monitors
[2020-08-04 07:07] VITALS: BMI 34.9
[2020-08-04] MEDS: ceFAZolin 2 GM/50 ML BAG IVPB (07:28)
[2020-08-04] MEDS: Lidocaine 2% Jelly 6 ML SYR (07:40)
[2020-08-04] MEDS: Omnipaque 300 MG/ML 50 ML BTL (07:49)
--- NOTE | 2020-08-04 07:49 | DI.RAD_ITS ---
Exam(s) XR RETROGRADE IN OR EXAM: XR RETROGRADE IN OR CLINICAL HISTORY: Hydronephrosis, left; bladder cancer TECHNIQUE: 2D and realtime digital imaging was performed. COMPARISON: No exams were available for comparison FINDINGS: C-arm fluoroscopy was utilized by Dr. Ruiz during retrograde ureterography. Hard copies show stent placement in the left collecting system. IMPRESSION: RADIATION DOSE DELIVERED: facundo Samaniego=7.4 mGy
--- NOTE | 2020-08-04 07:53 | W.PM.DSUDISC ---
Discharge Plan Disposition Patient Disposition: HOME Condition: Stable Discharge Details Reason For Visit: cystoscopy Attending Provider: Chris Ruiz Primary Care Provider: Diane Leblanc Home Meds and New Rx's Prescriptions: No Action Metamucil 3.4 gram/5.4 gram powder 2 tsp PO .Every Other Day RF: 0 (DME) lancets 28 gauge misc 1 ea Miscellaneous BID Qty: 300 RF: 4 (DME) Blood Glucose Test Strip 1 ea Miscellaneous BID Qty: 300 RF: 4 simvastatin [Zocor] 10 mg tablet 10 mg PO HS Qty: 90 RF: 4 calcium carbonate 500 MG tablet 1 tab.chew PO BID RF: 0 (DME) blood-glucose meter 1 EACH misc 1 ea Miscellaneous DAILY Qty: 1 RF: 0 Emergen-C 1,000 MG powder effervescent in packet 1 packet PO DAILY RF: 0 fluocinolone [Synalar] 120 GM ointment 1 applic Topical BID Qty: 1 RF: 2 acetaminophen 500 mg tablet 500 mg PO BID RF: 0 levothyroxine [Synthroid] 137 mcg tablet 137 mcg PO DAILY Qty: 90 RF: 4 pantoprazole 40 mg tablet,delayed release (DR/EC) 40 mg PO DAILY@0730 Qty: 90 RF: 3 metoprolol succinate 25 mg tablet extended release 24 hr 25 mg PO DAILY Qty: 90 RF: 0 sertraline 100 mg tablet 100 mg PO DAILY Qty: 90 RF: 3 amoxicillin-pot clavulanate [Augmentin] 500-125 mg tablet 1 tab PO BID Qty: 20 RF: 0 glipizide 2.5 mg tablet extended release 24hr 2.5 mg PO DAILY Qty: 180 RF: 3 Discharge Instructions Additional Instructions: will need cystoscopy and stent change 3 months - my office will schedule Activity:: Activity as Tolerated Shower/Bathe:: 24 hours Diet:: As Tolerated Discharge Orders Discharge Orders: Discharge Order (Routine); Ordered 08/04/20 Ordered By: Chris Ruiz DS: Diagnosis Discharge Diagnosis (1) Hydronephrosis, left: Status: Chronic (2) Bladder cancer: Status: Chronic
--- NOTE | 2020-08-04 07:56 | ROE_ITS ---
Date of service: 08/04/20 Time of Service: 07:56 Operative Note Operative Note DATE OF PROCEDURE: 08/04/20 PRE-OP DIAGNOSIS: Left hydronephrosis History bladder cancer POST-OP DIAGNOSIS: same PROCEDURE: cystoscopy, remove left ureteral stent, left retrograde pyelogram, insert left ureteral stent SURGEON: Chris Ruiz ANESTHESIA TYPE: General:No Airway Refer to Anesthesia Record ESTIMATED BLOOD LOSS: 0 PATHOLOGY: none sent COMPLICATIONS: None Patient was transported to: same day Patient's condition: stable Implants: 6 [employer] Helenian by 22 to 30 cm ureteral stent Indications: This is a 64-year-old woman who has a history of anal cancer. She was treated with a combination of surgical procedures, radiation and chemotherapy. She developed left hydronephrosis from an apparent left ureteral stricture. She is managed with an indwelling left ureteral stent. She comes in to have her stent exchanged. She also has a history of urothelial cell carcinoma of the bladder. Her previous tumor was high-grade but invasive. She was treated with transurethral resection followed by intravesical mitomycin-C. She presents for surveillance cystoscopy with possible transurethral resection as well. Findings: no recurrent bladder tumor Procedure Description: Patient was brought to the operating room on 08/04/2020. After successful induction of general anesthesia without intubation, she was placed in the dorsal lithotomy position. Her genitalia was prepped and draped. 2% Xylocaine jelly was instilled into the urethra to act as a local anesthetic. A 22 [place] Helenian rigid cystoscope was passed through the urethra into the bladder. The bladder was inspected with a 30 degree lens. The stent could be seen protruding from the left ureteral orifice. The stent was grasped and alligator forceps and brought to the level of the urethral meatus. A Glidewire was then introduced through the stent and advanced under fluoroscopic guidance. Once the wire had been placed, the stent was removed and a 6 [place] Helenian access catheter was advanced over the wire. The wire was removed and a retrograde pyelogram was performed by injecting Omnipaque through the access catheter under fluoroscopic guidance. This allowed us to outline the renal pelvis and collecting system. The wire was replaced and the access catheter was removed. A 6 [place] Helenian variable length stent was then advanced over the wire. The proximal end of the stent was curled in the renal pelvis and the distal and was curled in the bladder. The positioning of the stent was confirmed both fluoroscopically and cystoscopically. The cystoscope was reintroduced and the bladder was reinspected with a 70 degree lens. No papillary or nodular bladder tumors were identified. The bladder was then emptied and the cystoscope was withdrawn. She tolerated this procedure well with no complications.
[2020-08-04 08:00] VITALS: BP 106/53; PULSE 60; RESP 16; TEMP 36.1; O2SAT 96
--- NOTE | 2020-08-04 08:00 | W.ANESPOSTOP ---
Postoperative Evaluation Date, Time and Location Date Performed: 08/04/20 Time Performed: 08:01 Patient Location: Day Surgery Unit Vital Signs Most Recent Imported Vital Signs: Most Recent Vital Signs Temp Pulse Resp BP Pulse Ox 36.4 C L 76 18 105/58 L 98 08/04/20 06:15 08/04/20 06:15 08/04/20 06:15 08/04/20 06:15 08/04/20 06:15 Most Recent Manually Entered Vital Signs: Adult Blood Pressure: 106/53 Heart Rate: 60 Respirations: 20 Oxygen Saturation (%): 96 Temperature (C): 36.1 C Pain Score (0-10 Scale): 0 Assessment Mental Status: Awake (Alert & Oriented to Patient Baseline) Airway and Respiratory Function: Patent airway with normal (patient baseline) respiratory exam Cardiovascular Function: Hemodynamically Stable Hydration Status: Adequately Hydrated Nausea & Vomiting: No Nausea or Vomiting Pain: Pt. Denies Any Pain Peripheral Nerve Block: Patient did not receive a nerve block
[2020-08-04 08:02] VITALS: BP 106/53; PULSE 60; RESP 20; TEMPC 36.1; O2SAT 96
[2020-08-04 08:41] VITALS: BP 111/61; PULSE 54; RESP 16; TEMP 36.1; O2SAT 98
[2020-08-04] MEDS: Phenazopyridine 200 MG TAB PO (08:42)
== END 2020-08-04 06:10 | disposition home or self-care (01) ==
PROVIDERS: Visit Provider Urology
PROC: (CPT 52332; 2020-08-04 07:30)
DX: N13.30 Unspecified hydronephrosis (principal); C67.9 Malignant neoplasm of bladder, unspecified
CPT/HCPCS: 52332; 74420; J0690; J1885; J2001; Q9967

== ENCOUNTER 2020-09-05 03:32 | Outpatient (CLI) | payer MEDICARE, OTHER, SELFPAY ==
[2020-09-05 13:31] LABS: Abs Immature Grans 0.06 10^3/uL (0.0-0.06); Absolute Basophil Count 0.05 10^3/uL (0.0-0.2); Absolute Lymphocyte Count 0.93 10^3/uL (1.2-3.4); Absolute Monocyte Count 0.45 10^3/uL (0.1-0.8); Absolute Neutrophil Count 3.96 10^3/uL (1.2-6.7); Basophils % 0.9; Eosinophils % 1.8; HCT 31.3 % (36.0-46.0); HGB 9.8 g/dL (11.2-15.7); Immature Grans % 1.1; Lymphocytes % 16.8; MCH 30.3 pg (27.0-33.0); MCHC 31.3 % (32.0-36.0); MCV 96.9 fL (80-95); MPV 8.1 fL (8.0-11.0); Monocytes % 8.1; Neutrophils % 71.3; Nucleated RBC 0 %; Platelet Count 237 10^3/uL (130-400); RBC 3.23 10^6/uL (3.93-5.22); RDW 16.1 % (11.7-14.6); RDW-SD 57.7 fL; WBC 5.55 10^3/uL (4.4-10.8)
[2020-09-05 13:55] LABS: ALT 30 U/L (14-59); AST 18 U/L (15-37); Albumin 3.2 g/dL (3.4-5.0); Alkaline Phosphatase 114 U/L (46-116); Anion Gap 13.7 mmol/L (3-11); BUN 24 mg/dL (7-18); Bilirubin, Total 0.2 mg/dL (0.2-1.0); CO2 21.3 mmol/L (21.0-32.0); CREATININE 1.4 mg/dL (0.55-1.02); Chloride 104 mmol/L (98-107); Estimated GFR 37.62 (mL/min/1.73m2); Ferritin 383 ng/mL (8-252); Glucose 124 mg/dL (74-106); Potassium 3.9 mmol/L (3.5-5.1); Sodium 139 mmol/L (136-145); Total Protein 7.5 g/dL (6.4-8.2)
[2020-09-05 14:28] LABS: Iron 37 ug/dL (50-170); Total Iron Binding Capacity 262 ug/dL (250-450); Transferrin Sat 14 % (15-50)
== END 2020-09-05 03:33 | disposition home or self-care (01) ==
LOC: LBO 03:33
PROVIDERS: Visit Provider Internal Medicine Hematology & Oncology
DX: C21.0 Malignant neoplasm of anus, unspecified (principal); D64.9 Anemia, unspecified
CPT/HCPCS: 36415; 80053; 82728; 83540; 83550; 85025

== ENCOUNTER 2020-10-05 18:31 | Outpatient (REF) | payer MEDICARE, OTHER, SELFPAY | END 2020-10-05 18:32 | disposition home or self-care (01) | LOC: LBN 18:31 | DX: R32 Unspecified urinary incontinence; Z87.440 Personal history of urinary (tract) infections | CPT/HCPCS: 87077; 87086; 87186 ==

== ENCOUNTER 2020-10-18 01:32 | Outpatient (CLI) | payer MEDICARE, OTHER, SELFPAY ==
--- NOTE | 2020-10-18 | DI.CT_ITS ---
Exam(s) CT CHEST/ABD/PEL W EXAM: CT CHEST/ABD/PEL W CLINICAL HISTORY: ANAL CA,C21.0,SURVEILLANCE. TECHNIQUE: Imaging Protocol: Axial computed tomography images with coronal and sagittal reformatted images were created and reviewed CONTRAST MATERIAL: Intravenous: Omnipaque 350 Contrast volume:100 ml Oral: yes / CT CT ABDOMEN PELVIS W from 11/27/[address] ABDOMEN PELVIS WO from 06/03/2020 XR RETROGRADE IN OR from 08/04/2020 FINDINGS: CHEST: Tracheobronchial tree: Patent where visualized. Mediastinum and Davina: No dominant adenopathy or fluid collection. Pulmonary parenchyma: No consolidation or dominant measurable mass. Pleura: No effusion or pneumothorax. Lymph nodes: Within normal limits. Aorta: Thoracic portion non-dilated. Atherosclerotic changes. Heart: Normal size. Coronary artery calcifications. Bones: Unremarkable for age. No compression fracture. No lytic or blastic lesions. ABDOMEN: Liver: Normal density. No measurable mass. Gallbladder and biliary tract: No radiodense calculus or dilation. Pancreas: Normal density, no abnormal calcifications or inflammatory process. Spleen: Normal. Kidneys: Atrophic left kidney. Left ureteral stent. Mild left collecting system dilatation, less pr ominent when compared with the previous exam. Adrenal glands: No masses seen. Aorta: Abdominal portion non-dilated. Severe atherosclerotic changes. Lymph nodes: Within normal limits. Soft tissues: Unremarkable. PELVIS: Bladder: Diffuse bladder wall thickening. No visible mass or stone. Bowel: No obstruction or bowel wall thickening. Oral contrast extends to the level of the transverse colon. There has been interval increase in amount of soft tissue thickening in the perianal region as well as increase in size of an apparent abscess to the right side of the inferior rectum. There i s again noted to be thickening of the wall of the lower rectum and vagina.. Tubing is again noted to extend into the region of the perianal tissues. Peritoneal cavity: No ascites. No free air., Bones: Degenerative changes. No lytic or blastic lesions. Reproductive organs: Within normal limits. IMPRESSION: Continued increase in size right-sided perianal abscess and mild increase in the amount wall thickeni ng of the lower rectum and vagina. No evidence of distant metastatic disease or adenopathy. Improve ment in left hydronephrosis since the previous exam. Stent unchanged in position. RADIATION DOSE DELIVERED: 1,877.77mGy.cm Total DLP DATA REPOSITORY: All CT scans at this facility are submitted to the National Radiology Data Registry (NRDR) Dose Index Registry (DIR) with the [employer] (A[employer]). RADIATION OPTIMIZATION: All CT scans at this facility use at least one of these dose optimization te chniques: automated exposure control; mA and/or kV adjustment per patient size (includes targeted exa ms where dose is matched to clinical indication); or iterative reconstruction.
[2020-10-18 11:31] LABS: CREATININE 1.6 mg/dL (0.55-1.02); Estimated GFR 32.15 (mL/min/1.73m2)
[2020-10-18] MEDS: Omnipaque 350 MG/ML 100 ML BTL IJ (12:22)
[2020-10-18] MEDS: Normal Saline - Diluent 50 ML VIAL IV (12:24)
[2020-10-18] MEDS: Normal Saline Flush 10 ML SYR IVP (12:24)
[2020-10-18] MEDS: Omnipaque 350 MG/ML 50 ML BTL PO (12:49)
[2020-10-18] MEDS: Breeza Beverage 473 ML BTL PO (12:50)
== END 2020-10-18 01:52 ==
PROVIDERS: Visit Provider Colon & Rectal Surgery
DX: C21.0 Malignant neoplasm of anus, unspecified (principal); K61.0 Anal abscess; N13.30 Unspecified hydronephrosis
CPT/HCPCS: 74177; 71260; 82565; J3490; Q9967

== ENCOUNTER 2020-11-25 18:51 | Outpatient (REF) | payer MEDICARE, OTHER, SELFPAY ==
[2020-11-25 19:16] LABS: Bilirubin Negative (Negative); Blood Small (Negative); Clarity Sl Cloudy (Clear); Glucose Negative (Negative); Ketones Negative (Negative); Leukocyte Esterase Trace (Negative); Nitrite Negative (Negative); Urobilinogen 0.2 EU/dL (Up TO 0.2)
[2020-11-25 19:27] LABS: Bacteria Many HPF (Negative); C & S Indicated? Yes; Casts Negative LPF (Negative); Crystals Negative HPF (Negative); Epithelial Cells Few HPF (Negative); Mucus Negative (Negative)
== END 2020-11-25 18:52 | disposition home or self-care (01) ==
LOC: LBN 18:51
DX: R30.0 Dysuria (principal)
CPT/HCPCS: 87077; 81003; 81015; 87086; 87186

== ENCOUNTER 2020-12-05 16:26 | Outpatient (REF) | payer MEDICARE, OTHER, SELFPAY ==
[2020-12-05 17:44] LABS: HCT 32.3 % (36.0-46.0); HGB 9.7 g/dL (11.2-15.7); MCH 28.7 pg (27.0-33.0); MCV 95.6 fL (80-95); Platelet Count 308 10^3/uL (130-400); RBC 3.38 10^6/uL (3.93-5.22); RDW 16.6 % (11.7-14.6); RDW-SD 58.8 fL; WBC 6.65 10^3/uL (4.4-10.8)
[2020-12-05 19:22] LABS: Anion Gap 9.2 mmol/L (3-11); BUN 28 mg/dL (7-18); CO2 24.8 mmol/L (21.0-32.0); CREATININE 1.6 mg/dL (0.55-1.02); Calcium 8.8 mg/dL (8.5-10.1); Chloride 103 mmol/L (98-107); Estimated GFR 32.15 (mL/min/1.73m2); Glucose 111 mg/dL (74-106); Potassium 4.1 mmol/L (3.5-5.1); Sodium 137 mmol/L (136-145)
== END 2020-12-05 16:27 | disposition home or self-care (01) ==
LOC: LBN 16:26
DX: D50.9 Iron deficiency anemia, unspecified (principal); N17.9 Acute kidney failure, unspecified
CPT/HCPCS: 80048; 85027

== ENCOUNTER 2020-12-13 03:04 | Outpatient (CLI) | payer MEDICARE, OTHER, SELFPAY ==
[2020-12-13 10:44] LABS: Source Nasal/Nares
[2020-12-13 14:40] LABS: COVID-19 PCR Negative (Negative)
== END 2020-12-13 03:05 | disposition home or self-care (01) ==
LOC: LBO 03:05
PROVIDERS: Visit Provider Urology
DX: Z20.822 Contact with and (suspected) exposure to COVID-19 (principal); Z01.818 Encounter for other preprocedural examination
CPT/HCPCS: 87635

== ENCOUNTER 2020-12-15 10:24 | Day surgery (SDC) | payer MEDICARE, OTHER, SELFPAY ==
[2020-12-15 10:31] VITALS: BP 120/72; PULSE 98; RESP 18; TEMP 36.3; O2SAT 98
[2020-12-15] MEDS: Lactated Ringers 1,000 ML 80 ML IV (11:19)
--- NOTE | 2020-12-15 11:54 | W.ANESPRE ---
General Info Date of Service Date Performed: 12/15/20 Height: 5 ft 4 in Weight: 92.5 kg Body Mass Index (BMI): 34.9 Surgical Procedure: Operation Date: 12/15/20 12:55 Proposed Procedures Side Surgeon p Cystoscopy with Stent change Chris Mcmillan MD s Transurethral Resection Bladder Tumor possible Chris Mcmillan MD Meds Allergies and Home Medications Allergies Allergy/AdvReac Type Severity Reaction Status Date / Time copper Allergy Skin Rash Verified 12/15/20 10:46 codeine AdvReac tired Verified 12/15/20 10:46 latex AdvReac eczema Verified 12/15/20 10:46 flares up oxycodone AdvReac pt.unsure Verified 12/15/20 10:46 of reaction Home Medication Medication Instructions Recorded calcium carbonate 1 tab.chew PO BID 06/29/12 blood-glucose meter #1 ea 10/04/14 Emergen-C 1 packet PO DAILY 07/26/15 fluocinolone [Synalar] 1 applic TOPICAL BID #1 script 03/28/16 psyllium husk 3.4 gram/5.4 gram 2 tsp PO .Every Other Day gm 12/01/18 oral powder blood sugar diagnostic #300 strip 01/13/19 lancets 28 gauge #300 each 01/13/19 acetaminophen 500 mg tablet 500 mg PO BID tab 05/14/19 levothyroxine 137 mcg tablet 137 mcg PO DAILY #90 tab-cap 02/03/20 metoprolol succinate 25 mg 25 mg PO DAILY #90 tab 04/11/20 tablet,extended release 24 hr simvastatin 10 mg tablet 10 mg PO HS #90 tab-cap 05/17/20 glipizide 2.5 mg PO DAILY #180 tab 06/08/20 sertraline 100 mg tablet 100 mg PO DAILY #90 tab 07/14/20 pantoprazole 40 mg tablet,delayed 40 mg PO DAILY@0730 #90 tab 11/01/20 release nitrofurantoin macrocrystal 100 mg 100 mg PO BID #14 cap 11/28/20 capsule Current Visit Medications: Current Medications Generic Name Dose Route Start Last Admin Trade Name Freq PRN Reason Stop Dose Admin Ringer's Solution 1,000 mls @ 80 mls/hr 12/15/20 06:00 12/15/20 11:19 IV 01/13/21 23:59 80 mls/hr INFUSION HARRIET Administration Cefazolin Sodium/Dextrose 2 gm in 50 mls @ 100 mls/hr 12/15/20 06:00 Ancef Duplex IVPB 12/15/20 16:00 PREOP HARRIET IV Miscellaneous Supplies 1 each 12/15/20 06:00 Iv Access IV 01/13/21 23:59 DIRECTED HARRIET Sodium Chloride 0 ml 12/15/20 06:00 Normal Saline Flush 10 Ml Syr IV 01/13/21 23:59 PRN PRN Sodium Chloride 0 ml 12/15/20 06:00 Normal Saline 10 Ml Vial IJ 01/13/21 23:59 DIRECTED PRN Sterile Water 0 ml 12/15/20 06:00 Water,Injection,Sterile 10 Ml Vial IJ 01/13/21 23:59 DIRECTED PRN PFSH Active Problems Active Problems: Problem Status Onset Code Gastroesophageal reflux disease K21.9 Varicose veins of lower extremity I83.90 Dysfunctional uterine bleeding 02/07/02 N93.8 Abnormal cervical Papanicolaou smear 07/03/12 R87.619 Acute UTI N39.0 Hydronephrosis, left N13.30 Frequent UTI N39.0 Acute kidney injury superimposed on CKD N17.9, N18.9 Hyponatremia E87.1 Generalized weakness R53.1 Acute on chronic anemia D64.9 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 Acquired anal stenosis K62.4 Chronic back pain M54.9, G89.29 Colovaginal fistula 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 Palliative care patient Z51.5 Physician orders for life-sustaining treatment (POLST) form indicates patient wish for [id number] status Z66 DNR (do not resuscitate) Z66 UTI (urinary tract infection) N39.0 Bowel incontinence R15.9 Bladder incontinence R32 Bladder cancer C67.9 Hematuria R31.9 Depression due to physical illness Debility R53.81 Peripheral edema R60.9 Cancer related pain G89.3 Advanced directives, counseling/discussion Z71.89 Goals of care, counseling/discussion Z71.89 Acute kidney failure N17.9 Hypomagnesemia E83.42 Anemia D64.9 Smoker F17.200 Mass of anus 11/08/17 K62.89 Increased BMI R63.8 Hypothyroidism 07/07/12 E03.9 Hyperlipidemia E78.5 Essential hypertension 01/02/13 I10 Diabetes mellitus 07/07/12 E11.9 Medical History Medical History Abnormal glandular Papanicolaou smear of cervix (04/10/02) Acute kidney failure Per pt. unilateral kidney. 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 Advanced directives, counseling/discussion Anemia Bladder cancer f/u with dr. mcmillan Bladder incontinence Bowel incontinence Cancer related pain Debility Depression due to physical illness Diabetes mellitus (07/07/12) DVT prophylaxis Essential hypertension (01/02/13) Female infertility GERD (gastroesophageal reflux disease) Goals of care, counseling/discussion Graves' disease Hematuria Hyperlipidemia Hypertension Hypokalemia Hypomagnesemia Hypotension determined by examination Hypothyroidism (07/07/12) H/O GRAVES ophthalmopathy Increased BMI Mass of anus (11/08/17) 11/04/17 -Hyperplastic polyps of descending colon and rectum Invasive keratinizing squamous cell carcinoma -Tumor invading at least rectal mucosa and submucosa [facility] [place] referral initiated by Dr. Wolff Obesity (BMI 30-39.9) Peripheral edema L ankle Rectal cancer Sepsis Shock circulatory Smoker Quit October 2017 - back to smoking several per day 11/27 SVT (supraventricular tachycardia) Per pt. r/t to graves disease. Pt. states she has not had any issues with this for a long time. She states she see's her PCP to f/u UTI (urinary tract infection) Varicose veins of both lower extremities Surgical History Surgical History Cervical Procedure (~1989) CRYOTHERAPY Cortical cataract of left eye Cortical cataract of right eye Endometrial Biopsy (~2002) History of bilateral ligation of fallopian tubes (02/01/14) History of gynecological procedure History of tonsillectomy and adenoidectomy Hx of cystoscopy Hx of removal of cyst right lower gluteus kurt Ligation of fallopian tube Nuclear sclerotic cataract of left eye Nuclear sclerotic cataract of right eye Posterior subcapsular age-related cataract of left eye Posterior subcapsular age-related cataract, right eye Tobacco Smoking/Tobacco Use Status: Current every day Tobacco Type: cigarettes Smoking cigarettes per day: 5 Tobacco: How many years used: 50 Passive smoking exposure: No Quit Status: not considering quitting Counseling given: counseling >3 minutes Alcohol Alcohol Intake: never Substance Use Substance use: Never Substance use type: does not use Counseling given: No Counseling provided: none Vital Signs and Lab Results Vital Signs Most Recent Vital Signs in EMR: Most Recent Vital Signs Temp Pulse Resp BP Pulse Ox 36.3 C L 98 H 18 120/72 98 12/15/20 10:31 12/15/20 10:31 12/15/20 10:31 12/15/20 10:31 12/15/20 10:31 Point of Care Results Point of Care Results: Finger Stick Blood Glucose 170 12/15/20 11:01 Lab Results Blood Type / Crossmatch: No Data to Display Complete Blood Count: White Blood Count 6.65 10^3/uL (4.4-10.8) 12/05/20 15:05 12/05/20 Red Blood Count 3.38 10^6/uL (3.93-5.22) L 12/05/20 15:05 12/05/20 Hemoglobin 9.7 g/dL (11.2-15.7) L 12/05/20 15:05 12/05/20 Hematocrit 32.3 % (36.0-46.0) L 12/05/20 15:05 12/05/20 Platelet Count 308 10^3/uL (130-400) 12/05/20 15:05 12/05/20 Complete Metabolic Panel: Sodium Level 137 mmol/L (136-145) 12/05/20 15:12/05/20 Potassium Level 4.1 mmol/L (3.5-5.1) 12/05/20 15:05 12/05/20 Chloride Level 103 mmol/L (98-107) 12/05/20 15:12/05/20 Carbon Dioxide Level 24.8 mmol/L (21.0-32.0) 12/05/20 15:05 12/05/20 Blood Urea Nitrogen 28 mg/dL (7-18) H 12/05/20 15:05 12/05/20 Creatinine 1.6 mg/dL (0.55-1.02) H 12/05/20 15:05 12/05/20 Estimated GFR/1.73 m2 32.15 (mL/min/1.73m2) 12/05/20 15:05 12/05/20 Calcium Level 8.8 mg/dL (8.5-10.1) 12/05/20 15:05 12/05/20 Glucose Level 111 mg/dL (74-106) H 12/05/20 15:05 12/05/20 Liver Function Panel: No Data to Display Coagulation Panel: No Data to Display Cardiac Panel: No Data to Display Arterial Blood Gas: No Data to Display Venous Blood Gas: No Data to Display Pancreas Panel: No Data to Display Thyroid Panel: No Data to Display Infectious Disease: Coronavirus (COVID-19)(PCR) Negative (Negative) 12/13/20 09:53 12/13/20 Coronavirus 2019 Source Nasal/Nares 12/13/20 09:53 12/13/20 Blood Cultures: No Data to Display Toxicology Panel: No Data to Display Anesthesia Assessment and Plan Anesthesia History Personal History: No History of Anesthesia Complications Family History: No Family History of Anesthesia Complications Exercise Tolerance Exercise Tolerance: Metabolic Equivalents<4 Pertinent Negatives Pertinent Negatives: No Symptoms of GERD, No Major Cardiovascular Symptoms or Complaints, No Major Pulmonary Symptoms or Complaints and No History of CVA/TIA Cardiac & Pulmonary Exam Cardiac Exam: Normal S1/S2 Heart Sounds Pulmonary Exam: Clear Bilateral Breath Sounds Airway Exam Known Difficult Airway: No Mallampati Class: 2 Mouth Opening: Normal (> 3cm) Thyromental Distance: Less than 3 cm Neck Range of Motion: Full ROM and Limited ROM Neck Circumference: Thick Teeth Condition: Removable Dentures/Plates Upper, Removable Dentures/Plates Lower and Edentulous Airway Comments: Morbidly obese presumed decreased FRC ASA Classification ASA Score: ASA 3 Emergency Case?: No NPO Status NPO Status: NPO Clears >2 hours, Solids >8 hours Anesthesia Plan Resuscitation Status: Full Code Anesthesia Technique: General Anesthesia Airway Planned: Natural Airway Monitors Used: Standard Monitors
[2020-12-15 11:58] VITALS: BMI 34.9
--- NOTE | 2020-12-15 11:59 | W.PM.HP.N ---
Date of service: 12/15/20 Time of Service: 11:59 Assessment and Plan Assessment and plan (1) Hydronephrosis, left: Status: Chronic Assessment and plan: The hydronephrosis is due to a stricture (presumed from radiation). We will plan to change her chronic stent. This will also give us the chance to look and make sure she has no recurrent bladder tumor. (2) Bladder cancer: Status: Chronic Qualifiers: Bladder location: unspecified site Qualified Code(s): C67.9 - Malignant neoplasm of bladder, unspecified History of Present Illness History of Present Illness Chief Complaint: Left hydronephrosis Narrative: This is a 65-year-old woman who has a history of anal cancer. She has been treated with combinations of surgical procedures, radiation and chemotherapy. She has left hydronephrosis which we suspected was related to the radiation treatments. No ureteral mass was identified. She is is managed with an indwelling stent. She does have a history of bladder cancer. She was treated with transurethral resection followed by intravesical chemotherapy treatments. She presents now for a scheduled left ureteral stent change. If we identify a bladder tumor on today's cystoscopy, we will be prepared to resect and cauterize the area. Review of Systems Narrative: c/o fatigue. No fevers or chills No vision change or dysphasia No diabetes or thyroid No shortness of breath, cough or hemoptysis No chest pain or palpitations Hx GERD. No hepatitis, ulcers, jaundice, diarrhea or constipation No seizures, strokes or peripheral neuropathy No bleeding disorders or anemia No gout [facility] Medical History Abnormal glandular Papanicolaou smear of cervix (04/10/02) Acute kidney failure Per pt. unilateral kidney. 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 Advanced directives, counseling/discussion Anemia Bladder cancer f/u with dr. mcmillan Bladder incontinence Bowel incontinence Cancer related pain Debility Depression due to physical illness Diabetes mellitus (07/07/12) DVT prophylaxis Essential hypertension (01/02/13) Female infertility GERD (gastroesophageal reflux disease) Goals of care, counseling/discussion Graves' disease Hematuria Hyperlipidemia Hypertension Hypokalemia Hypomagnesemia Hypotension determined by examination Hypothyroidism (07/07/12) H/O GRAVES ophthalmopathy Increased BMI Mass of anus (11/08/17) 11/04/17 -Hyperplastic polyps of descending colon and rectum Invasive keratinizing squamous cell carcinoma -Tumor invading at least rectal mucosa and submucosa [facility] [place] initiated by Dr. Wolff Obesity (BMI 30-39.9) Peripheral edema L ankle Rectal cancer Sepsis Shock circulatory Smoker Quit October 2017 - back to smoking several per day 11/27 SVT (supraventricular tachycardia) Per pt. r/t to graves disease. Pt. states she has not had any issues with this for a long time. She states she see's her PCP to f/u UTI (urinary tract infection) Varicose veins of both lower extremities Surgical History Cervical Procedure (~1989) CRYOTHERAPY Cortical cataract of left eye Cortical cataract of right eye Endometrial Biopsy (~2002) History of bilateral ligation of fallopian tubes (02/01/14) History of gynecological procedure History of tonsillectomy and adenoidectomy Hx of cystoscopy Hx of removal of cyst right lower gluteus kurt Ligation of fallopian tube Nuclear sclerotic cataract of left eye Nuclear sclerotic cataract of right eye Posterior subcapsular age-related cataract of left eye Posterior subcapsular age-related cataract, right eye Family History Mother , of cirrhosis at age 68, likely from lifelong obesity Diabetes Essential hypertension Depression Heart disease Hyperlipidemia Stroke Liver cancer Father , dad aged 55 from AMI Heart disease Myocardial infarction Sister Hyperlipidemia Asthma Grandfather Neoplasm LUNG Grandmother Stroke Son Diabetes Asthma Daughter Anxiety Heart disease BORN WITH ENLARGED HEART Depression Bipolar Social History Smoking/Tobacco Use Status: Current every day Tobacco Type: cigarettes Tobacco: How many years used: 50 Quit status: not considering quitting Counseling given: counseling >3 minutes Smoking risk assessment performed?: Yes Alcohol Intake: never Drug use: Never Substance use type: does not use Counseling given: No Counseling provided: none Caregiver/Support person: No Household members: spouse and none Housing: apartment Do you need help understanding health information?: Rarely 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 Pets and animals: No Sexually active: No Do you think of yourself as: straight/heterosexual Current gender identity: decline to answer What is your relationship status?: How often do you talk on the phone with friends or family?: three or more times per week How often do you get together with friends or relatives?: decline to answer How often do you attend anabaptist or worship services?: decline to answer Do you belong to any clubs or organized social groups?: decline to answer Panel score (0-1 are the most socially isolated patients): 2 What type of physical activity do you participate in: none Duration: decline to answer Frequency: decline to answer Miranda/Episcopal: Voodoo Special miranda needs: No Seatbelt use: always Helmet use: No Drive intox or ride w/intox milk driver: No Do you feel safe at home: Yes Additional Social history: lives alone Meds Allergies and Home Medications Allergies Allergy/AdvReac Type Severity Reaction Status Date / Time copper Allergy Skin Rash Verified 12/15/20 10:46 codeine AdvReac tired Verified 12/15/20 10:46 latex AdvReac eczema Verified 12/15/20 10:46 flares up oxycodone AdvReac pt.unsure Verified 12/15/20 10:46 of reaction Home Medications Medication Instructions Recorded Confirmed Type calcium carbonate 1 tab.chew PO BID 06/29/12 12/15/20 History blood-glucose meter #1 ea 10/04/14 12/15/20 History Emergen-C 1 packet PO DAILY 07/26/15 12/15/20 History fluocinolone [Synalar] 1 applic TOPICAL BID #1 script 03/28/16 12/15/20 History psyllium husk 3.4 gram/5.4 gram 2 tsp PO .Every Other Day gm 12/01/18 12/15/20 History oral powder blood sugar diagnostic #300 strip 01/13/19 12/15/20 Rx lancets 28 gauge #300 each 01/13/19 12/15/20 Rx acetaminophen 500 mg tablet 500 mg PO BID tab 05/14/19 12/15/20 History levothyroxine 137 mcg tablet 137 mcg PO DAILY #90 tab-cap 02/03/20 12/15/20 Rx metoprolol succinate 25 mg 25 mg PO DAILY #90 tab 04/11/20 12/15/20 Rx tablet,extended release 24 hr simvastatin 10 mg tablet 10 mg PO HS #90 tab-cap 05/17/20 12/15/20 Rx glipizide 2.5 mg PO DAILY #180 tab 06/08/20 12/15/20 Rx sertraline 100 mg tablet 100 mg PO DAILY #90 tab 07/14/20 12/15/20 Rx pantoprazole 40 mg tablet,delayed 40 mg PO DAILY@0730 #90 tab 11/01/20 12/15/20 Rx release nitrofurantoin macrocrystal 100 mg 100 mg PO BID #14 cap 11/28/20 12/15/20 Rx capsule Exam Const General: cooperative Neck Neck: supple Resp Effort & Inspection: normal respiratory effort Cardio Rate: regular rate Rhythm: regular rhythm GI Palpation: no guarding Neuro General: patient alert and patient awake Results Last Vital Signs Temp 36.3 C L 12/15/20 10:31 Pulse 98 H 12/15/20 10:31 Resp 18 12/15/20 10:31 BP 120/72 12/15/20 10:31 Pulse Ox 98 12/15/20 10:31
--- NOTE | 2020-12-15 12:00 | DI.RAD_ITS ---
Exam(s) XR RETROGRADE IN OR EXAM: XR RETROGRADE IN OR CLINICAL HISTORY: LEFT HYDRONEPHROSIS, STENT PLACEMENT TECHNIQUE: 2D and realtime digital imaging was performed. CONTRAST MATERIAL: Refer to procedure report. COMPARISON: No exams were available for comparison FINDINGS: Fluoroscopy was provided for Dr. Ruiz during the performance of a evaluation of the renal collectin g system.. Please refer to the procedure report for complete details. Ka,r=[id number] mGy IMPRESSION: RADIATION DOSE DELIVERED:
--- NOTE | 2020-12-15 12:09 | W.ANESPOSTOP ---
Postoperative Evaluation Date, Time and Location Date Performed: 12/15/20 Time Performed: 12:09 Patient Location: Day Surgery Unit Vital Signs Most Recent Imported Vital Signs: Most Recent Vital Signs Temp Pulse Resp BP Pulse Ox 36.3 C L 98 H 18 120/72 98 12/15/20 10:31 12/15/20 10:31 12/15/20 10:31 12/15/20 10:31 12/15/20 10:31 Most Recent Manually Entered Vital Signs: Adult Blood Pressure: 134/55 Heart Rate: 62 Respirations: 24 Oxygen Saturation (%): 97 Temperature (C): 36 C Pain Score (0-10 Scale): 1 Pain Score Most Recent Pain Score: Most Recent Pain Score Pain Level 9 12/15/20 10:31 Assessment Mental Status: Awake (Alert & Oriented to Patient Baseline) Airway and Respiratory Function: Patent airway with normal (patient baseline) respiratory exam Cardiovascular Function: Hemodynamically Stable Hydration Status: Adequately Hydrated Nausea & Vomiting: No Nausea or Vomiting Pain: Pain is tolerable per patient (Slight sore throat) Peripheral Nerve Block: Patient did not receive a nerve block
[2020-12-15 12:11] VITALS: BP 134/55; PULSE 62; RESP 24; TEMPC 36; O2SAT 97
[2020-12-15] MEDS: ceFAZolin 2 GM/50 ML BAG IVPB (12:47)
[2020-12-15] MEDS: Lidocaine 2% Jelly 6 ML SYR (13:08)
--- NOTE | 2020-12-15 13:26 | W.PM.DSUDISC ---
Discharge Plan Disposition Patient Disposition: HOME Condition: Stable Discharge Details Reason For Visit: ureteral stent change Attending Provider: Chris Ruiz Primary Care Provider: Diane Leblanc Home Meds and New Rx's Prescriptions: No Action Metamucil 3.4 gram/5.4 gram powder 2 tsp PO .Every Other Day RF: 0 (DME) lancets 28 gauge misc 1 ea Miscellaneous BID Qty: 300 RF: 4 (DME) Blood Glucose Test Strip 1 ea Miscellaneous BID Qty: 300 RF: 4 simvastatin [Zocor] 10 mg tablet 10 mg PO HS Qty: 90 RF: 4 calcium carbonate 500 MG tablet 1 tab.chew PO BID RF: 0 (DME) blood-glucose meter 1 EACH misc 1 ea Miscellaneous DAILY Qty: 1 RF: 0 Emergen-C 1,000 MG powder effervescent in packet 1 packet PO DAILY RF: 0 fluocinolone [Synalar] 120 GM ointment 1 applic Topical BID Qty: 1 RF: 2 acetaminophen 500 mg tablet 500 mg PO BID RF: 0 levothyroxine [Synthroid] 137 mcg tablet 137 mcg PO DAILY Qty: 90 RF: 4 metoprolol succinate 25 mg tablet extended release 24 hr 25 mg PO DAILY Qty: 90 RF: 0 sertraline 100 mg tablet 100 mg PO DAILY Qty: 90 RF: 3 pantoprazole 40 mg tablet,delayed release (DR/EC) 40 mg PO DAILY@0730 Qty: 90 RF: 3 nitrofurantoin macrocrystal 100 mg capsule 100 mg PO BID Qty: 14 RF: 0 glipizide 2.5 mg tablet extended release 24hr 2.5 mg PO DAILY Qty: 180 RF: 3 Discharge Instructions Additional Instructions: no office appointment needed but we will arrange for her next stent change in 3 to 6 months Activity:: Activity as Tolerated Shower/Bathe:: 24 hours Diet:: As Tolerated Discharge Orders Discharge Orders: Discharge Order (Routine); Ordered 12/15/20 Ordered By: Chris Ruiz DS: Diagnosis Discharge Diagnosis (1) Hydronephrosis, left: Status: Chronic (2) Bladder cancer: Status: Chronic
[2020-12-15 13:35] VITALS: BP 111/62; PULSE 61; RESP 20; TEMP 36.1; O2SAT 95
--- NOTE | 2020-12-15 13:37 | W.ANESPOSTOP ---
Postoperative Evaluation Date, Time and Location Date Performed: 12/15/20 Time Performed: 13:37 Patient Location: Day Surgery Unit Vital Signs Most Recent Imported Vital Signs: Most Recent Vital Signs Temp Pulse Resp BP Pulse Ox 36.3 C L 98 H 18 120/72 98 12/15/20 10:31 12/15/20 10:31 12/15/20 10:31 12/15/20 10:31 12/15/20 10:31 Most Recent Vital Signs Temp Pulse Resp BP Pulse Ox 36.3 C L 98 H 18 120/72 98 12/15/20 10:31 12/15/20 10:31 12/15/20 10:31 12/15/20 10:31 12/15/20 10:31 Most Recent Manually Entered Vital Signs: Adult Blood Pressure: 111/62 Heart Rate: 61 Respirations: 20 Oxygen Saturation (%): 94 Temperature (C): 36.1 C Pain Score (0-10 Scale): 0 Pain Score Most Recent Pain Score: Most Recent Pain Score Pain Level 9 12/15/20 10:31 Assessment Mental Status: Awake (Alert & Oriented to Patient Baseline) Airway and Respiratory Function: Patent airway with normal (patient baseline) respiratory exam Cardiovascular Function: Hemodynamically Stable Hydration Status: Adequately Hydrated Nausea & Vomiting: No Nausea or Vomiting Pain: Pt. Denies Any Pain Peripheral Nerve Block: Patient did not receive a nerve block
[2020-12-15 13:41] VITALS: BP 111/62; PULSE 61; RESP 20; TEMPC 36.1; O2SAT 94
[2020-12-15 14:02] VITALS: BP 114/55; PULSE 65; RESP 20; TEMP 36.3; O2SAT 100
--- NOTE | 2020-12-15 14:11 | W.PM.OP ---
Date of service: 12/15/20 Time of Service: 14:11 Operative Note Operative Note DATE OF PROCEDURE: 12/15/20 PRE-OP DIAGNOSIS: Left hydronephrosis History of bladder cancer POST-OP DIAGNOSIS: same PROCEDURE: Cystoscopy, removal left ureteral stent, left retrograde pyelogram, replaced left ureteral stent SURGEON: Chris Ruiz ANESTHESIA TYPE: Local By Surgeon and General:No Airway Refer to Anesthesia Record ESTIMATED BLOOD LOSS: 0 PATHOLOGY: none sent COMPLICATIONS: None Patient was transported to: same day Patient's condition: stable Implants: 6 Cam[place]onian by 22 to 30 cm left ureteral stent Indications: This is a 65-year-old woman who has a history of anal cancer. She was treated with a combination of surgery, radiation therapy and chemotherapy. She developed gross hematuria and was found to have noninvasive urothelial cell carcinoma of the bladder. She was treated with transurethral resection followed by intravesical instillations. She then developed left hydronephrosis related to a ureteral stricture. We suspect the etiology is radiation induced. No urothelial cell carcinoma was visible at the strictured area. She has been treated with placement of a ureteral stent. She presents for stent change Findings: No recurrent bladder tumor Procedure Description: The patient was brought to the operating room on 12/15/2020. She was given preoperative antibiotics. After successful induction of general anesthesia, she was placed in the dorsal lithotomy position. Her genitalia was prepped and draped. 2% Xylocaine jelly was instilled into the urethra to act as a local anesthetic. A 22 Cam[place]onian rigid cystoscope was passed through the urethra into the bladder. The bladder was inspected with a 30 degree lens. The stent could be seen protruding from the left ureteral orifice. The stent was grasped and alligator forceps and brought out to the level of the urethral meatus. A Glidewire was then advanced through the lumen of the stent and the stent was removed. A 5 Cam[place]onian ureteral access catheter was advanced over the wire and the wire was removed. We then performed retrograde pyelogram by injecting Omnipaque through the access catheter under fluoroscopic guidance. This allowed us to outline the upper tract of the left kidney. We then replaced the wire and removed the access catheter. A 6 [place]onian by 22 to 30 cm stent was then advanced over the wire. The positioning of the stent was confirmed both fluoroscopically and cystoscopically. The proximal end of the stent was curled in the renal pelvis and the distal and was curled within the bladder. We then reinspected the bladder with a 70 degree lens. No papillary or nodular lesions worrisome for carcinoma were identified. The bladder was emptied and the scope was removed.
== END 2020-12-15 14:51 | disposition home or self-care (01) ==
PROVIDERS: Visit Provider Urology
PROC: (CPT 52332; principal; 2020-12-15 12:45)
DX: N13.1 Hydronephrosis with ureteral stricture, not elsewhere classified (principal); C67.9 Malignant neoplasm of bladder, unspecified; K21.9 Gastro-esophageal reflux disease without esophagitis; I10 Essential (primary) hypertension; E11.9 Type 2 diabetes mellitus without complications; Z85.51 Personal history of malignant neoplasm of bladder; Z85.048 Personal history of other malignant neoplasm of rectum, rectosigmoid junction, and anus
CPT/HCPCS: 52332; 74420; J0690

== ENCOUNTER 2021-02-11 13:06 | Outpatient (REF) | payer MEDICARE, OTHER, SELFPAY ==
[2021-02-11 14:20] LABS: HCT 29.5 % (36.0-46.0); HGB 8.6 g/dL (11.2-15.7); MCH 26.8 pg (27.0-33.0); MCHC 29.2 % (32.0-36.0); MCV 91.9 fL (80-95); MPV 8.8 fL (8.0-11.0); Platelet Count 301 10^3/uL (130-400); RBC 3.21 10^6/uL (3.93-5.22); RDW 17.8 % (11.7-14.6); RDW-SD 60.1 fL; WBC 5.95 10^3/uL (4.4-10.8)
[2021-02-11 14:42] LABS: ALT 17 U/L (14-59); AST 11 U/L (15-37); Albumin 2.9 g/dL (3.4-5.0); Alkaline Phosphatase 105 U/L (46-116); Anion Gap 11.4 mmol/L (3-11); BUN 25 mg/dL (7-18); Bilirubin, Total 0.2 mg/dL (0.2-1.0); CO2 25.6 mmol/L (21.0-32.0); CREATININE 1.7 mg/dL (0.55-1.02); Calcium 8.6 mg/dL (8.5-10.1); Chloride 100 mmol/L (98-107); Estimated GFR 29.98 (mL/min/1.73m2); Ferritin 464 ng/mL (8-252); Glucose 143 mg/dL (74-106); Potassium 4.2 mmol/L (3.5-5.1); Sodium 137 mmol/L (136-145); TSH (W/Ref FT4) 0.25 uIU/mL (0.36-3.74); Total Protein 6.7 g/dL (6.4-8.2)
[2021-02-11 14:43] LABS: Iron 28 ug/dL (50-170)
[2021-02-11 15:02] LABS: FREE T4 1.29 ng/dL (0.76-1.46)
== END 2021-02-11 13:07 | disposition home or self-care (01) ==
LOC: LBN 13:06
DX: N18.9 Chronic kidney disease, unspecified (principal); D64.9 Anemia, unspecified; D50.0 Iron deficiency anemia secondary to blood loss (chronic); C67.9 Malignant neoplasm of bladder, unspecified; E03.9 Hypothyroidism, unspecified
CPT/HCPCS: 80053; 85027; 82728; 83540; 84439; 84443

== ENCOUNTER 2021-03-16 12:06 | Outpatient (REF) | payer MEDICARE, OTHER, SELFPAY ==
[2021-03-16 12:59] LABS: Abs Immature Grans 0.11 10^3/uL (0.0-0.06); Absolute Basophil Count 0.04 10^3/uL (0.0-0.2); Absolute Eosinophil Count 0.06 10^3/uL (0.0-0.7); Absolute Lymphocyte Count 0.48 10^3/uL (1.2-3.4); Absolute Monocyte Count 0.41 10^3/uL (0.1-0.8); Absolute Neutrophil Count 5.45 10^3/uL (1.2-6.7); Basophils % 0.6; Eosinophils % 0.9; HCT 29.6 % (36.0-46.0); HGB 8.7 g/dL (11.2-15.7); Immature Grans % 1.7; Lymphocytes % 7.3; MCH 26.4 pg (27.0-33.0); MCHC 29.4 % (32.0-36.0); MPV 8.7 fL (8.0-11.0); Monocytes % 6.3; Neutrophils % 83.2; Nucleated RBC 0 %; Platelet Count 362 10^3/uL (130-400); RBC 3.29 10^6/uL (3.93-5.22); RDW 17.9 % (11.7-14.6); RDW-SD 59.7 fL; WBC 6.55 10^3/uL (4.4-10.8)
[2021-03-16 13:09] LABS: ALT 12 U/L (14-59); AST 6 U/L (15-37); Albumin 2.8 g/dL (3.4-5.0); Alkaline Phosphatase 116 U/L (46-116); Anion Gap 10.3 mmol/L (3-11); BUN 24 mg/dL (7-18); Bilirubin, Total 0.2 mg/dL (0.2-1.0); C-Reactive Protein 12.47 mg/dL (0.0-0.3); CO2 24.7 mmol/L (21.0-32.0); CREATININE 1.7 mg/dL (0.55-1.02); Calcium 8.8 mg/dL (8.5-10.1); Chloride 101 mmol/L (98-107); Estimated GFR 29.98 (mL/min/1.73m2); Glucose 242 mg/dL (74-106); Potassium 4.3 mmol/L (3.5-5.1); Sodium 136 mmol/L (136-145); Total Protein 7.2 g/dL (6.4-8.2)
== END 2021-03-16 12:07 | disposition home or self-care (01) ==
LOC: LBN 12:06
PROVIDERS: Visit Provider Colon & Rectal Surgery
DX: C67.2 Malignant neoplasm of lateral wall of bladder (principal); E11.29 Type 2 diabetes mellitus with other diabetic kidney complication
CPT/HCPCS: 80053; 85025; 86140

== ENCOUNTER 2021-03-22 01:13 | Outpatient (CLI) | payer MEDICARE, OTHER, SELFPAY ==
--- NOTE | 2021-03-22 13:45 | DI.CT_ITS ---
Exam(s) CT PELVIC W EXAM: CT PELVIC W CLINICAL HISTORY: ANAL CA,TIGHT ANAL STENOSIS,? ABSCESS VS NEW CA. TECHNIQUE: Imaging Protocol: Axial computed tomography images with coronal and sagittal reformatted images were created and reviewed. CONTRAST MATERIAL: Intravenous: Omnipaque 350 Contrast volume:100ml contrast route:IV - Oral: /yes COMPARISON: CT CT CHEST/ABD/PEL W from 08/31/[address] CHEST/ABD/PEL W from 10/18/2020 FINDINGS: Bladder: Nearly empty. Mild wall thickening. Distal pigtail of left ureteral stent in position. Bowel: Administered oral contrast is seen in the distal small bowel and cecum. The remaining colon i s unopacified. No obstruction or bowel wall thickening. Mild sigmoid diverticulosis. Perirectal soft tissues: Increase in size right Alexandra anal abscess with significant quantity of debri s. Approximate dimensions 7 x 8 cm. lperirectal soft tissue pre and presacral thickening are again noted. There appears to be involvement of the adjacent right-sided pelvic floor musculature. Chron ic right gluteal thickening. High-density material is again noted in the region of the abscess exte nding to the skin surface which may represent Setons. Reproductive: Thickening of vaginal wall. Peritoneal cavity: Unremarkable. Bones: No bony destruction visible. IMPRESSION: Significant interval worsening of previously noted right-sided Alexandra anal abscess with muscular involv ement.. RADIATION DOSE DELIVERED: 563.25mGy.cm Total DLP DATA REPOSITORY: All CT scans at this facility are submitted to the National Radiology Data Registry (NRDR) Dose Index Registry (DIR) with the [employer] ([employer]). RADIATION OPTIMIZATION: All CT scans at this facility use at least one of these dose optimization te chniques: automated exposure control; mA and/or kV adjustment per patient size (includes targeted exa ms where dose is matched to clinical indication); or iterative reconstruction.
[2021-03-22] MEDS: Breeza Beverage 473 ML BTL PO ×2 (14:09→14:10)
[2021-03-22 14:10] LABS: CREATININE 1.6 mg/dL (0.55-1.02); Estimated GFR 32.15 (mL/min/1.73m2)
[2021-03-22] MEDS: Omnipaque 350 MG/ML 50 ML BTL PO (14:10)
[2021-03-22] MEDS: Omnipaque 350 MG/ML 100 ML BTL IJ (15:55)
--- NOTE | 2021-03-22 16:35 | DI.VRAD_ITS ---
PROCEDURE INFORMATION: Exam: CT Pelvis With Contrast Exam date and time: 03/22/2021 3:58 PM Age: 65 years old Clinical indication: Condition or disease; Abscess and cancer; Location of cancer or specific organ: Perineal; Anal and rectal TECHNIQUE: Imaging protocol: Computed tomography images of the pelvis with intravenous contrast. Contrast material: OMNI 350; Contrast volume: 100 ml; Contrast route: INTRAVENOUS (IV); Other contrast: Oral, omni 350, 900; COMPARISON: CT CHEST/ABD/PEL W 10/18/2020 12:[address] abdomen and pelvis without contrast of 06/03/2020. FINDINGS: Tubes, catheters and devices: Partially visualized left double-J ureteral stent in stable position. Stomach and bowel: Chronic diffuse thickening of the rectal wall and the lower right vaginal wall. Descending and sigmoid diverticula without evidence for acute diverticulitis. Appendix: Appendix is normal in caliber. No periappendiceal edema. No findings to suggest acute appendicitis. Intraperitoneal space: Unremarkable. No free air. No significant fluid collection. Lymph nodes: Unremarkable. No enlarged lymph nodes. Urinary bladder: Chronic urinary bladder wall thickening. Reproductive: Retroverted uterus. Normal bilateral ovaries. Bones/joints: Interval increase in size of the right ischiorectal fossa abscess from 1.9 x 3.7 cm to 3.9 x 6.8 cm best seen on series 2, image 38. Multiple Setons are stable. Soft tissues: Chronic presacral soft tissue thickening. Chronic thickening of the medial right gluteal subcutaneous fat. IMPRESSION: 1. Increase in size of the right ischiorectal fossa abscess since the prior study. Chronic thickening of the right vaginal wall and the rectum. Stable position of multiple Setons. 2. Stable position of the left double-J ureteral stent. 3. Chronic urinary bladder wall thickening. Dictated and Authenticated by: Kyle Benson MD. Ordering:SIERRA MANLEY MD
== END 2021-03-22 01:33 ==
PROVIDERS: Visit Provider Colon & Rectal Surgery
DX: C21.0 Malignant neoplasm of anus, unspecified (principal); K61.0 Anal abscess; R93.41 Abnormal radiologic findings on diagnostic imaging of renal pelvis, ureter, or bladder
CPT/HCPCS: 72193; 82565; J3490; Q9967

== ENCOUNTER 2021-04-12 14:39 | Outpatient (REF) | payer MEDICARE, OTHER, SELFPAY ==
[2021-04-12 16:56] LABS: Bilirubin Negative (Negative); Blood Small (Negative); Clarity Clear (Clear); Glucose Negative (Negative); Ketones Negative (Negative); Leukocyte Esterase Small (Negative); Nitrite Negative (Negative); Specific Gravity 1.015 (1.005-1.025); Urobilinogen 0.2 EU/dL (Up TO 0.2)
[2021-04-12 17:33] LABS: Bacteria Moderate HPF (Negative); C & S Indicated? Yes; Casts Negative LPF (Negative); Crystals Negative HPF (Negative); Epithelial Cells Few HPF (Negative); Mucus Negative (Negative)
== END 2021-04-12 14:40 | disposition home or self-care (01) ==
LOC: LBN 14:39
DX: R53.83 Other fatigue; C67.9 Malignant neoplasm of bladder, unspecified; M54.9 Dorsalgia, unspecified
CPT/HCPCS: 81003; 81015; 87086

== ENCOUNTER → 2021-04-14 09:57 | Outpatient (BNVA) | payer MEDICARE, OTHER, SELFPAY | PROVIDERS: Visit Provider Urology | DX: N13.30 Unspecified hydronephrosis (principal); C67.9 Malignant neoplasm of bladder, unspecified | CPT/HCPCS: 99442 ==

== ENCOUNTER 2021-05-30 12:49 | Outpatient (REF) | payer MEDICARE, OTHER, SELFPAY ==
[2021-05-30 13:57] LABS: Bilirubin Negative (Negative); Blood Moderate (Negative); Clarity Sl Cloudy (Clear); Glucose Negative (Negative); Ketones Negative (Negative); Leukocyte Esterase Moderate (Negative); Nitrite Negative (Negative); Specific Gravity 1.015 (1.005-1.025); Urobilinogen 0.2 EU/dL (Up TO 0.2)
[2021-05-30 14:10] LABS: Bacteria Few HPF (Negative); C & S Indicated? Yes; Casts 0-2 Hyaline LPF (Negative); Crystals Negative HPF (Negative); Epithelial Cells Few HPF (Negative); Mucus Negative (Negative); WBC >50 HPF (0-5)
== END 2021-05-30 12:50 | disposition home or self-care (01) ==
LOC: NCHCN 12:49
DX: R30.0 Dysuria (principal)
CPT/HCPCS: 81003; 81015; 87086

== ENCOUNTER 2021-06-26 13:52 | Inpatient (IN) | payer MEDICARE, OTHER, SELFPAY ==
[2021-06-26 13:56] VITALS: BP 120/63; PULSE 95; RESP 16; TEMP 36.4; O2SAT 98
--- NOTE | 2021-06-26 14:12 | ED.GENADUL_ITS ---
Discharge Plan Disposition Patient Disposition: [facility] INPATIENT Condition: Serious Discharge Details Clinical Impression: KYLE (acute kidney injury), Acute UTI, Acute right-sided low back pain with right-sided sciatica, Hydronephrosis Admit Date/Time: 06/26/21 19:29 Admit Provider: James Potter Attending Provider: James Potter Primary Care Provider: Diane Leblanc ED Provider: Rehan Mustafa Discharge Data Discharge Date/Time-TO BE ENTERED AT DEPARTURE: 06/26/21 20:56 Medical Decision Making Patient is a pleasant 65-year-old female presenting today with chief complaint of dysuria and sciatica. Patient reports that she has had progressively worsening symptoms over the past 4 to 5 days. Reports that she feels that she has sciatica involving the right side. Reports that she does have a history of sciatica and this feels similar but is been several years since her last issue with this. Reported secondary to the pain, she is been having some subjective weakness in the right lower extremity and has been ambulating over the past 4 days with a walker. Typically, patient is ambulatory without any assistance. She also reports that over the past 4 days she had increased dysuria, increased frequency and urgency. Patient does have history of colorectal cancer as well as bladder cancer. She reports that she has been prone to urinary tract infection since having radiation of her bladder. Patient does have a colostomy and reports that she has had softer stool output than typical. Denies any fevers or chills. Denies any weakness in the left leg. On exam, patient appears uncomfortable. She is leaning more towards the left trying to unweight the right side. She has no significant midline tenderness. Slightly tender over the lower lumbar spine but is more tender on the right side. She is particularly sore under the right gluteal fold with the endorsing pain down the posterior right leg. She is 2+ distal pulses in all of her extremities. Colostomy output appears normal. Abdomen is benign and nontender. Exam is slightly limited secondary to discomfort and severe pain with any type of movement. He has no saddle paresthesias on exam. Initially, I was concerned for possible cauda equina. However, at this point it is really just unilateral and if not having any saddle paresthesias I have low suspicion for this at this time do not feel the patient need MRI. She is likely having concomitant issues including UTI as well as the initially self diagnosed with sciatica. However, with her history, I am also considered for metastatic disease and feel that imaging would be appropriate. Will obtain labs and imaging. We will move forward with a noncontrast CT as the patient typically has poor GFR. Patient has done well with morphine in the past, will give 2 mg of morphine and 1 g of Tylenol to help with comfort. Contacted by the lab as the patient's creatinine is elevated at 4. She has been making urine. She does report that she has difficulty with urination. This does further increase my concern for potential metastatic disease. Labs otherwise concerning for hemoglobin of 7.3 which appears to be baseline for the patient she does have long history of anemia. UA is pending. Will obtain post void residual as well. At the end of my shift, care transition to Mark Mustafa PA-C with imaging and disposition pending. I assumed care of this 65-year-old female from my colleague KATIE Quiroz, please see her initial HPI and examination. Upon evaluation patient reports that the morphine is helped greatly with her back and sciatica pain. Urinalysis reveals small blood, negative nitrate, small leuk esterase, 3-5 red cells and greater than 50 white cells. Will give 1 g IV ceftriaxone for UTI. The CT imaging was read by radiology as interval worsening of left hydron ephrosis, ureteral stent remains in place. No significant change in appearance of the right perianal abscess and anal wall thickening. Degenerative changes in the lumbar spine causing multilevel neural foraminal narrowing and central canal stenosis, no evidence of fracture or destructive lesion. It was brought to my attention of the postvoid residual was obtained approximately 45 minutes after urinating, the patient was receiving IV fluid, and was 375 cc. Patient was asked to urinate again so we can get a true postvoid residual but she reports that she cannot void at this time and declined . Given her creatinine of 4.0, I discussed the case with our hospitalist team, Dr. Potter, for admission. He came to the ER to personally evaluate the patient but was concerned given her hydronephrosis that she may require a urology consultation. I was able to speak with Dr. Mcmillan regarding her presentation today. He believes admission to our hospitalist team is reasonable, make the patient n.p.o. overnight and he will replace a stent tomorrow. He does believe that a Dias catheter this evening would be helpful. Patient was able to urinate, postvoid residual was 281. She declines a Dias catheter. I discussed my conversation that I had with Dr. Mcmillan with Dr. Potter. He is agreeable to admit the patient will write admission orders. This documentation was generated using [employer] system, please disregard any oddities of phrase or misspellings. Medical Records Medical records reviewed: Yes I reviewed the patient's medical records. Imaging Data Radiologic Study: Attestation: I personally reviewed and interpreted this imaging study as follows: Imaging: CT Scan Radiologist's impression: Exam(s) CT ABDOMEN PELVIS WO CT LUMBAR SPINE WO EXAM: CT ABDOMEN PELVIS WO CLINICAL HISTORY: radicular pain, hx of rectal and bladder CA. TECHNIQUE: Imaging Protocol: Axial computed tomography images with coronal and sagittal reformatted images were created and reviewed. Oral: No COMPARISON: CT CT CHEST/ABD/PEL W from 10/18/[address] PELVIC W from 03/22/[address] LUMBAR SPINE WO from 06/26/2021 FINDINGS: ABDOMEN: Lung Bases: Normal where visualized. Liver: Normal density. No measurable mass. Gallbladder and biliary tract: No radiodense calculus or dilation. Pancreas: Normal density, no abnormal calcifications or inflammatory process. Spleen: Normal. Kidneys: Atrophic right kidney with several cysts. Moderate to severe left hydronephrosis. Left ureteral stent in place. Degree of hydronephrosis has increased when compared with previous exam. No calculi. Adrenal glands: No masses seen. Lymph nodes: Within normal limits. Abdominal Aorta: Abdominal portion non-dilated. Severe atherosclerotic changes. Soft tissues: Left-sided colostomy, unremarkable. PELVIS: Bladder: Distended., no gross wall thickening. No calcification or mass. Bowel: No obstruction or bowel wall thickening. Peritoneal cavity: No ascites, collection or mesenteric inflammatory response. Reproductive organs: Within normal limits. Soft tissues: Relatively stable size and appearance of right-sided perianal abscess with Setons in place. Stable rectal wall thickening. Bones: Sclerosis SI joints, stable. Degenerative disc changes and facet degenerative changes in the lumbar spine. Multilevel disc bulging. No focal disc herniation. Central canal stenosis at L2-3, L3-4 and L4-5, greatest at L3- 4. Neural foraminal narrowing at on the left from L2-3 through L5-S1, most severe at L5-S1. Right neural foraminal narrowing greatest at L4-5.. No evidence of fracture. No visible of lytic or blastic lesions. IMPRESSION: 1. Interval worsening of left hydronephrosis. Ureteral stent remains in place. 2. No significant change in appearance of right perianal abscess and anal wall thickening.. 3. Degenerative changes in the lumbar spine causing multilevel neural foraminal narrowing and central canal stenosis. No evidence of fracture or destructive lesion. Results of this exam have been verbally communicated with emergency department provider. Radiologic Study #2: Attestation: I personally reviewed and interpreted this imaging study as follows: Imaging: CT Scan Radiologist's impression: Exam(s) CT ABDOMEN PELVIS WO CT LUMBAR SPINE WO EXAM: CT ABDOMEN PELVIS WO CLINICAL HISTORY: radicular pain, hx of rectal and bladder CA. TECHNIQUE: Imaging Protocol: Axial computed tomography images with coronal and sagittal reformatted images were created and reviewed. Oral: No COMPARISON: CT CT CHEST/ABD/PEL W from 10/18/[address] PELVIC W from 03/22/[address] LUMBAR SPINE WO from 06/26/2021 FINDINGS: ABDOMEN: Lung Bases: Normal where visualized. Liver: Normal density. No measurable mass. Gallbladder and biliary tract: No radiodense calculus or dilation. Pancreas: Normal density, no abnormal calcifications or inflammatory process. Spleen: Normal. Kidneys: Atrophic right kidney with several cysts. Moderate to severe left hydronephrosis. Left ureteral stent in place. Degree of hydronephrosis has increased when compared with previous exam. No calculi. Adrenal glands: No masses seen. Lymph nodes: Within normal limits. Abdominal Aorta: Abdominal portion non-dilated. Severe atherosclerotic changes. Soft tissues: Left-sided colostomy, unremarkable. PELVIS: Bladder: Distended., no gross wall thickening. No calcification or mass. Bowel: No obstruction or bowel wall thickening. Peritoneal cavity: No ascites, collection or mesenteric inflammatory response. Reproductive organs: Within normal limits. Soft tissues: Relatively stable size and appearance of right-sided perianal abscess with Setons in place. Stable rectal wall thickening. Bones: Sclerosis SI joints, stable. Degenerative disc changes and facet deg enerative changes in the lumbar spine. Multilevel disc bulging. No focal disc herniation. Central canal stenosis at L2-3, L3-4 and L4-5, greatest at L3-4. Neural foraminal narrowing at on the left from L2-3 through L5-S1, most severe at L5-S1. Right neural foraminal narrowing greatest at L4-5.. No evidence of fracture. No visible of lytic or blastic lesions. IMPRESSION: 1. Interval worsening of left hydronephrosis. Ureteral stent remains in place. 2. No significant change in appearance of right perianal abscess and anal wall thickening.. 3. Degenerative changes in the lumbar spine causing multilevel neural foraminal narrowing and central canal stenosis. No evidence of fracture or destructive lesion. Results of this exam have been verbally communicated with emergency department provider. Lab Data Lab results reviewed: Yes I reviewed the patient's lab results. Labs: 06/26/21 17:02 Urine - Reflex from Ua Urine Culture - Pending Laboratory Tests Range/Units 06/26/21 06/26/21 06/26/21 14:36 15:09 15:25 WBC (4.4-10.8) 10^3/uL 8.80 RBC (3.93-5.22) 10^6/uL 2.79 L Hgb (11.2-15.7) g/dL 7.3 L Hct (36.0-46.0) % 25.1 L MCV (80-95) fL 90.0 MCH (27.0-33.0) pg 26.2 L MCHC (32.0-36.0) % 29.1 L RDW (11.7-14.6) % 19.3 H Plt Count (130-400) 10^3/uL 296 MPV (8.0-11.0) fL 8.5 Immature Gran % 2.2 Neutrophils % 84.5 Lymphocytes % 5.9 Monocytes % 6.9 Eosinophils % 0.2 Basophils % 0.3 Nucleated RBC % (0.0-0.3) % 0.0 Absolute Neutrophils (1.2-6.7) 10^3/uL 7.43 H Absolute Lymphocytes (1.2-3.4) 10^3/uL 0.52 L Absolute Monocytes (0.1-0.8) 10^3/uL 0.61 Absolute Eosinophils (0.0-0.7) 10^3/uL 0.02 Absolute Basophils (0.0-0.2) 10^3/uL 0.03 RBC Morphology See Below Hypochromasia 1+ Anisocytosis 1+ Macrocytosis 1+ Sodium Cancelled 131 L Potassium Cancelled 4.8 Chloride Cancelled 100 Carbon Dioxide Cancelled 20.6 L Anion Gap Cancelled 10.4 BUN Cancelled 49 H Creatinine Cancelled 4.0 H* Estimated GFR/1.73 m2 Cancelled 11.17 Glucose Cancelled 164 H Calcium Cancelled 9.0 Magnesium Cancelled 1.9 Total Bilirubin Cancelled 0.3 AST Cancelled 18 ALT Cancelled 22 Alkaline Phosphatase Cancelled 184 H Total Protein Cancelled 8.0 Albumin Cancelled 2.4 L Urine Color (Yellow) Urine Clarity (Clear) Urine pH (5-8) Ur Specific [place] (1.005-1.025) Urine Protein (Negative) mg/dL Urine Ketones (Negative) mg/dL Urine Blood (Negative) Urine Nitrite (Negative) Urine Bilirubin (Negative) Urine Urobilinogen (Up TO 0.2) EU/dL Ur Leukocyte Esterase (Negative) Urine RBC (0-2) HPF Urine WBC (0-5) HPF Ur Epithelial Cells (Negative) HPF Urine Crystals (Negative) HPF Urine Bacteria (Negative) HPF Urine Casts (Negative) LPF Urine Mucus (Negative) Ur Culture Indicated? Urine Glucose (Negative) mg/dL COVID-19 Source SARS-CoV-2 (PCR) (Negative) Range/Units 06/26/21 06/26/21 17:02 18:00 WBC (4.4-10.8) 10^3/uL RBC (3.93-5.22) 10^6/uL Hgb (11.2-15.7) g/dL Hct (36.0-46.0) % MCV (80-95) fL MCH (27.0-33.0) pg MCHC (32.0-36.0) % RDW (11.7-14.6) % Plt Count (130-400) 10^3/uL MPV (8.0-11.0) fL Immature Gran % Neutrophils % Lymphocytes % Monocytes % Eosinophils % Basophils % Nucleated RBC % (0.0-0.3) % Absolute Neutrophils (1.2-6.7) 10^3/uL Absolute Lymphocytes (1.2-3.4) 10^3/uL Absolute Monocytes (0.1-0.8) 10^3/uL Absolute Eosinophils (0.0-0.7) 10^3/uL Absolute Basophils (0.0-0.2) 10^3/uL RBC Morphology Hypochromasia Anisocytosis Macrocytosis Sodium Potassium Chloride Carbon Dioxide Anion Gap BUN Creatinine Estimated GFR/1.73 m2 Glucose Calcium Magnesium Total Bilirubin AST ALT Alkaline Phosphatase Total Protein Albumin Urine Color (Yellow) Yellow Urine Clarity (Clear) Clear Urine pH (5-8) 6.0 Ur Specific [place] (1.005-1.025) 1.025 Urine Protein (Negative) mg/dL 100 H Urine Ketones (Negative) mg/dL Negative Urine Blood (Negative) Small H Urine Nitrite (Negative) Negative Urine Bilirubin (Negative) Negative Urine Urobilinogen (Up TO 0.2) EU/dL 0.2 Ur Leukocyte Esterase (Negative) Small H Urine RBC (0-2) HPF 3-5 H Urine WBC (0-5) HPF >50 H Ur Epithelial Cells (Negative) HPF Few Urine Crystals (Negative) HPF Negative Urine Bacteria (Negative) HPF Moderate Urine Casts (Negative) LPF Negative Urine Mucus (Negative) Trace Ur Culture Indicated? Yes Urine Glucose (Negative) mg/dL Negative COVID-19 Source Nasal/Nares SARS-CoV-2 (PCR) (Negative) Negative HPI General Date/Time Provider Initiated Documentation: 06/26/21 14:12 . Limitations to Documentation: no limitations . Information obtained by: patient, EMS and RN notes reviewed . History of Present Illness 65 year old F presents to the emergency department with the chief complaint of right sided back pain, similar to sciatica she has had in the past, described as severe and similar to prior episodes, with intensity rated at 10. Quality is described as stabbing, and is localized to the buttocks, right and lower extremity. Patient extremity. Patient started experiencing this day(s) and it has been constant. improves with Immobilization improves symptom(s), Movement worsens symptoms . Patient notes other (dysurea); denies chest pain, fever/chills, loss of appetite, nausea/vomiting and shortness of breath. Patient did receive the following treatments prior to arrival, none Related Data Home Medications Medication Instructions Recorded Confirmed calcium carbonate 500 mg calcium 1 tab.chew PO BID 06/29/12 06/26/21 (1,250 mg) tablet blood-glucose meter #1 ea 10/04/14 02/27/21 ascorbic acid 1,000 1 packet PO DAILY 07/26/15 06/26/21 un-etqhkcrjjaoh-wsjxlitr powder effervescent pack (Emergen-[facility]) fluocinolone 0.025 % topical 1 applic TOPICAL BID #1 script 03/28/16 05/03/21 ointment (Synalar) acetaminophen 500 mg tablet 500 - 1,000 mg PO TID tab 12/19/20 06/26/21 blood sugar diagnostic (Blood #300 strip 01/06/21 02/27/21 Glucose Test) lancets 28 gauge #300 each 01/06/21 02/27/21 simvastatin 10 mg tablet (Zocor) 10 mg PO HS #90 tab-cap 02/21/21 06/26/21 metoprolol succinate 25 mg 25 mg PO DAILY #90 tab 02/27/21 06/26/21 tablet,extended release 24 hr levothyroxine 125 mcg tablet 125 mcg PO DAILY #90 tab-cap 02/28/21 06/26/21 pantoprazole 40 mg tablet,delayed 40 mg PO DAILY@0730 #90 tab 03/01/21 06/26/21 release meclizine 12.5 mg tablet 12.5 mg PO TID PRN 05/03/21 05/03/21 sertraline 100 mg tablet 100 mg PO DAILY #90 tab 06/05/21 06/26/21 glipizide 2.5 mg tablet, extended 2.5 mg PO DAILY #60 tab 06/14/21 06/26/21 release 24 hr lorazepam 1 mg tablet 1 mg PO Q4H PRN PRN #10 tab 06/29/21 morphine concentrate 100 mg/5 mL See Rx Instructions PO Q1H PRN #30 06/29/21 (20 mg/mL) oral solution ml MDD 240 mg tramadol 50 mg tablet 50 mg PO TID PRN #90 tab MDD 150mg 06/29/21 Previous Rx's Medication Instructions Recorded blood sugar diagnostic (Blood #300 strip 01/06/21 Glucose Test) lancets 28 gauge #300 each 01/06/21 simvastatin 10 mg tablet (Zocor) 10 mg PO HS #90 tab-cap 02/21/21 metoprolol succinate 25 mg 25 mg PO DAILY #90 tab 02/27/21 tablet,extended release 24 hr levothyroxine 125 mcg tablet 125 mcg PO DAILY #90 tab-cap 02/28/21 pantoprazole 40 mg tablet,delayed 40 mg PO DAILY@0730 #90 tab 03/01/21 release sertraline 100 mg tablet 100 mg PO DAILY #90 tab 06/05/21 glipizide 2.5 mg tablet, extended 2.5 mg PO DAILY #60 tab 06/14/21 release 24 hr lorazepam 1 mg tablet 1 mg PO Q4H PRN PRN #10 tab 06/29/21 morphine concentrate 100 mg/5 mL See Rx Instructions PO Q1H PRN #30 06/29/21 (20 mg/mL) oral solution ml MDD 240 mg tramadol 50 mg tablet 50 mg PO TID PRN #90 tab MDD 150mg 06/29/21 Allergies Allergy/AdvReac Type Severity Reaction Status Date / Time copper Allergy Skin Rash Verified 06/26/21 19:40 codeine AdvReac tired Verified 06/26/21 19:40 latex AdvReac eczema Verified 06/26/21 19:40 flares up oxycodone AdvReac pt.unsure Verified 06/26/21 19:40 of reaction General SEMAJ: 3 Review of Systems Constitutional Constitutional: Reports as per HPI, Denies chills, Denies fever(s) and Denies poor appetite Cardiovascular Cardiovascular: Denies chest pain Respiratory Respiratory: Denies cough Gastrointestinal Gastrointestinal: Denies abdominal pain, Denies change in bowel habits, Denies nausea and Denies vomiting Genitourinary Genitourinary: Reports as per HPI Musculoskeletal Musculoskeletal: Reports as per HPI, Reports back pain, Denies muscle weakness, Denies numbness and Reports radiating pain into limb Integumentary/Breasts Skin/Breast: Reports as per HPI and Denies rash Neurologic Neurologic: Denies numbness PFSH All Active Problems (Updated 06/29/21 @ 14:11 by Italia Navarro NP) Encounter for hospice care discussion (Acute) KYLE (acute kidney injury) (Acute) Acute UTI (Acute) Acute right-sided low back pain with right-sided sciatica (Acute) Hydronephrosis (Acute) Radiating back pain (Acute) Anxiety (Chronic) Fatigue (Acute) Need for home health care (Acute) Nausea (Acute) Colostomy in place (Chronic) [place] [facility] [place] CKD (chronic kidney disease) stage 3, GFR 30-59 ml/min (Acute) Rectal pain, chronic (Chronic) Secondary to rectal cancer surgery & drains/leakage Gastroesophageal reflux disease (Chronic) Varicose veins of lower extremity (Acute) Dysfunctional uterine bleeding (Acute 02/07/02) Abnormal cervical Papanicolaou smear (Acute 07/03/12) Hydronephrosis, left (Chronic) Frequent UTI (Acute) Generalized weakness (Acute) Acute on chronic anemia (Acute) Radiation proctitis (Acute) 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 unilateral kidney. 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 Wolff Increased BMI (Chronic) Hypothyroidism (Chronic 07/07/12) H/O GRAVES ophthalmopathy Hyperlipidemia (Chronic) Essential hypertension (Chronic 01/02/13) Diabetes mellitus (Chronic 07/07/12) Medical History Abnormal glandular Papanicolaou smear of cervix (04/10/02) Acute kidney injury superimposed on CKD DVT prophylaxis Female infertility GERD (gastroesophageal reflux disease) Graves' disease Hypertension Hypokalemia Hypotension determined by examination Obesity (BMI 30-39.9) Rectal cancer Sepsis Shock circulatory SVT (supraventricular tachycardia) Per pt. r/t to graves disease. Pt. states she has not had any issues with this for a long time. She states she see's her PCP to f/u UTI (urinary tract infection) Varicose veins of both lower extremities Surgical History Cervical Procedure (~1989) CRYOTHERAPY Cortical cataract of left eye Cortical cataract of right eye Endometrial Biopsy (~2002) History of bilateral ligation of fallopian tubes (02/01/14) History of gynecological procedure History of tonsillectomy and adenoidectomy Hx of cystoscopy Hx of removal of cyst right lower gluteus kurt Ligation of fallopian tube Nuclear sclerotic cataract of left eye Nuclear sclerotic cataract of right eye Posterior subcapsular age-related cataract of left eye Posterior subcapsular age-related cataract, right eye Family History Mother , of cirrhosis at age 68, likely from lifelong obesity Diabetes Essential hypertension Depression Heart disease Hyperlipidemia Stroke Liver cancer Father , dad aged 55 from AMI Heart disease Myocardial infarction Sister Hyperlipidemia Asthma Grandfather Neoplasm LUNG Grandmother Stroke Son Diabetes Asthma Daughter Anxiety Heart disease BORN WITH ENLARGED HEART Depression Bipolar Social History Smoking/Tobacco Use Status: Current every day Tobacco Type: cigarettes Tobacco: How many years used: 50 Quit status: not considering quitting Counseling given: counseling >3 minutes Smoking risk assessment performed?: Yes Alcohol Intake: never Drug use: Never Substance use type: does not use Counseling given: No Counseling provided: none Caregiver/Support person: No Household members: spouse and none Housing: apartment Do you need help understanding health information?: Rarely 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 Pets and animals: No Sexually active: No Do you think of yourself as: straight/heterosexual Current gender identity: decline to answer What is your relationship status?: How often do you talk on the phone with friends or family?: three or more times per week How often do you get together with friends or relatives?: decline to answer How often do you attend gnosticist or taoist services?: decline to answer Do you belong to any clubs or organized social groups?: decline to answer Panel score (0-1 are the most socially isolated patients): 2 What type of physical activity do you participate in: none Duration: decline to answer Frequency: decline to answer Miranda/Yarsanism: Scientology Special miranda needs: No Seatbelt use: always Helmet use: No Drive intox or ride w/intox pile driver operator barge mounted: No Do you feel safe at home: Yes Additional Social history: lives alone, son recently moved in Exam Const General: cooperative, healthy appearing, uncomfortable, no acute distress, well developed and well groomed Nutritional Appearance: well nourished and overweight Orientation: alert and awake Resp Effort & Inspection: normal respiratory effort and no respiratory distress Auscultation: clear to auscultation bilaterally, no rales, no rhonchi and no wheezes Cardio Rate: regular rate Rhythm: regular rhythm Heart Sounds: S1 normal and S2 normal GI Inspection: normal to inspection Palpation: soft, no hepatosplenomegaly, not firm, no guarding, not rigid and nontender Back/Spine/Pelvis Back: no CVA tenderness Thoracic/Lumbar Spine: thoracic and lumbar spine normal to inspection, No thoraco-lumbar ROM normal (limited secondary to pain along right side, is leaned to the left), pain with thoraco-lumbar ROM, No paraspinal tenderness, No thoracic spinal tenderness and No lumbar spinal tenderness Pelvis: no pain with anterior-posterior compression Skin Trauma: no lacerations or abrasions Wounds: wounds noted (chronic wounds to buttock) Neuro General: patient alert and patient awake Cognition: normal cognition Speech: speech normal Gait: gait abnormal (did not ambulat secondary to discomfort, ambulating with cane at home) Motor: strength 5/5 throughout (in the feet/ankles, secondary to position and pain, unable to test back), no pronator drift and no fasciculations Sensory Exam: no sensory deficits noted (no saddle paresthesias) Psych Appearance: grossly normal and well kempt Mental Status: mental status grossly normal Speech and Movement: speech and movement normal Course Vital Signs Vital signs: Vital Signs Temperature 36.4 C 06/26/21 13:56 Pulse 95 H 06/26/21 13:56 Respiratory Rate 16 06/26/21 13:56 Blood Pressure 120/63 06/26/21 13:56 Pulse Oximetry 98 06/26/21 13:56 Temperature 36.4 C 06/26/21 13:56 Temperature Source Oral 06/26/21 13:56 Pulse 95 H 06/26/21 13:56 Respiratory Rate 16 06/26/21 13:56 Blood Pressure 120/63 06/26/21 13:56 Pulse Oximetry 98 06/26/21 13:56 Oxygen Delivery Method Room Air 06/26/21 13:56 Oxygen Flow Rate 0 06/26/21 13:56 Pain Level 8 06/26/21 13:56 Sign Out Sign Out Data: Sign Out Comment: Care transition to Mark Mustafa PA-C, with imaging pending. Patient here with dysuria, difficulty urinating as well as right-sided radicular leg pain similar to when she has had sciatica in the past. Labs concerning for anemia, appears to be baseline for patient, elevated creatinine of 4.0 which is unusual. Nursing is obtaining urinalysis, postvoid residual. Imaging pending at the time of signout. Last updated by Bianka Quiroz PA at 06/26/21 16:34
[2021-06-26] MEDS: MORPHine 10 MG/ML VIAL 2 MG IVP (15:19)
[2021-06-26] MEDS: ACETAMINOPHEN 1,000 MG/100 ML BTL 400 MG IVPB (15:20)
[2021-06-26] MEDS: Lactated Ringers 1,000 ML 125 ML IV (15:20)
[2021-06-26 15:23] LABS: Abs Immature Grans 0.19 10^3/uL (0.0-0.06); Absolute Basophil Count 0.03 10^3/uL (0.0-0.2); Absolute Eosinophil Count 0.02 10^3/uL (0.0-0.7); Absolute Lymphocyte Count 0.52 10^3/uL (1.2-3.4); Absolute Monocyte Count 0.61 10^3/uL (0.1-0.8); Absolute Neutrophil Count 7.43 10^3/uL (1.2-6.7); Basophils % 0.3; Eosinophils % 0.2; HCT 25.1 % (36.0-46.0); HGB 7.3 g/dL (11.2-15.7); Immature Grans % 2.2; Lymphocytes % 5.9; MCH 26.2 pg (27.0-33.0); MCHC 29.1 % (32.0-36.0); MPV 8.5 fL (8.0-11.0); Monocytes % 6.9; Neutrophils % 84.5; Platelet Count 296 10^3/uL (130-400); RBC 2.79 10^6/uL (3.93-5.22); RDW 19.3 % (11.7-14.6)
[2021-06-26 15:44] LABS: Anisocytosis 1+; Diff Comment Agrees w/ Instrument; Hypochromasia 1+; Macrocytosis 1+
[2021-06-26 16:06] LABS: ALT 22 U/L (14-59); AST 18 U/L (15-37); Albumin 2.4 g/dL (3.4-5.0); Alkaline Phosphatase 184 U/L (46-116); Anion Gap 10.4 mmol/L (3-11); BUN 49 mg/dL (7-18); Bilirubin, Total 0.3 mg/dL (0.2-1.0); CO2 20.6 mmol/L (21.0-32.0); Chloride 100 mmol/L (98-107); Estimated GFR 11.17 (mL/min/1.73m2); Glucose 164 mg/dL (74-106); Magnesium 1.9 mg/dL (1.8-2.4); Potassium 4.8 mmol/L (3.5-5.1); Sodium 131 mmol/L (136-145)
--- NOTE | 2021-06-26 16:10 | DI.CT_ITS ---
Exam(s) CT ABDOMEN PELVIS WO CT LUMBAR SPINE WO EXAM: CT ABDOMEN PELVIS WO CLINICAL HISTORY: radicular pain, hx of rectal and bladder CA. TECHNIQUE: Imaging Protocol: Axial computed tomography images with coronal and sagittal reformatted images were created and reviewed. Oral: No COMPARISON: CT CT CHEST/ABD/PEL W from 10/18/[address] PELVIC W from 03/22/[address] LUMBAR SPINE WO from 06/26/2021 FINDINGS: ABDOMEN: Lung Bases: Normal where visualized. Liver: Normal density. No measurable mass. Gallbladder and biliary tract: No radiodense calculus or dilation. Pancreas: Normal density, no abnormal calcifications or inflammatory process. Spleen: Normal. Kidneys: Atrophic right kidney with several cysts. Moderate to severe left hydronephrosis. Left ure teral stent in place. Degree of hydronephrosis has increased when compared with previous exam. No c alculi. Adrenal glands: No masses seen. Lymph nodes: Within normal limits. Abdominal Aorta: Abdominal portion non-dilated. Severe atherosclerotic changes. Soft tissues: Left-sided colostomy, unremarkable. PELVIS: Bladder: Distended., no gross wall thickening. No calcification or mass. Bowel: No obstruction or bowel wall thickening. Peritoneal cavity: No ascites, collection or mesenteric inflammatory response. Reproductive organs: Within normal limits. Soft tissues: Relatively stable size and appearance of right-sided perianal abscess with Setons in pl amrik. Stable rectal wall thickening. Bones: Sclerosis SI joints, stable. Degenerative disc changes and facet degenerative changes in the lumbar spine. Multilevel disc bulging. No focal disc herniation. Central canal stenosis at L2-3, L 3-4 and L4-5, greatest at L3-4. Neural foraminal narrowing at on the left from L2-3 through L5-S1, m ost severe at L5-S1. Right neural foraminal narrowing greatest at L4-5.. No evidence of fracture. No visible of lytic or blastic lesions. IMPRESSION: 1. Interval worsening of left hydronephrosis. Ureteral stent remains in place. 2. No significant change in appearance of right perianal abscess and anal wall thickening.. 3. Degenerative changes in the lumbar spine causing multilevel neural foraminal narrowing and centra l canal stenosis. No evidence of fracture or destructive lesion. Results of this exam have been verbally communicated with emergency department provider. RADIATION DOSE DELIVERED: 896.31mGy.cm Total DLP DATA REPOSITORY: All CT scans at this facility are submitted to the National Radiology Data Registry (NRDR) Dose Index Registry (DIR) with the [employer] (ACR). RADIATION OPTIMIZATION: All CT scans at this facility use at least one of these dose optimization te chniques: automated exposure control; mA and/or kV adjustment per patient size (includes targeted exa ms where dose is matched to clinical indication); or iterative reconstruction.
[2021-06-26 17:04] VITALS: BP 101/62; PULSE 65; RESP 18; O2SAT 98
[2021-06-26 17:16] LABS: Bilirubin Negative (Negative); Blood Small (Negative); Clarity Clear (Clear); Glucose Negative (Negative); Ketones Negative (Negative); Leukocyte Esterase Small (Negative); Nitrite Negative (Negative); Specific Gravity 1.025 (1.005-1.025); Urobilinogen 0.2 EU/dL (Up TO 0.2)
--- NOTE | 2021-06-26 17:17 | NUR.NOTE ---
Nursing Note:Patient got up to commode 1-2 assist.
[2021-06-26 17:23] LABS: Bacteria Moderate HPF (Negative); Casts Negative LPF (Negative); Crystals Negative HPF (Negative); Epithelial Cells Few HPF (Negative); Mucus Trace (Negative); WBC >50 HPF (0-5)
[2021-06-26 17:24] LABS: C & S Indicated? Yes
--- NOTE | 2021-06-26 17:36 | NUR.NOTE ---
Nursing Note:Bladder scan completed at this time, 375ml noted. patient denies the need to get up and use bathroom at this time, refuses to try to urinate.
[2021-06-26] MEDS: cefTRIAXone 1 GM/50 ML BAG IVPB (18:04)
[2021-06-26 18:17] LABS: Source Nasal/Nares
[2021-06-26 19:01] LABS: COVID-19 PCR Negative (Negative)
--- NOTE | 2021-06-26 19:06 | W.PM.HP.N ---
Date of service: 06/26/21 Time of Service: 19:07 Assessment and Plan Assessment and plan (1) Radiating back pain: Status: Acute Assessment and plan: Radiating back pain. I believe it likely that this is radicular, w/o evident deficits. Will treat with prn analgesics and will also trial Neurontin, Might benefit from trial steroids as well. There is also evident UTI, will continue Rocephin pending cultures. The KLYE is likely on a post-renal obstructive basis, whether ureteral alone or also at level of bladder. Will be going to OR in AM, will leave NPO. Reviewed ADs, requests DNR. Meds all unconfirmed at present, will hold until confirmed, and then have Pharmacy adjust for renal dosing. History of Present Illness History of Present Illness Chief Complaint: right leg pain, dysuria Narrative: 65 female with h/o both anal and bladder CA, atrophic right kidney and chronic left hydronephrosis secondary to XRT, s/p repeated stent placement, s/p colostomy for rectovaginal fistula. Also has h/o rioght sided sciatica and multiple UTIs. Here tonight with one week of dysuria and frequency, as well as 4 days of right sided LBP riating to posterior right thigh, similar to prior episodes of sciatica. In ER w/u of note for absence of fever, creatinine of 4.0 (baseline 1.9), BUN 49, gross pyuria (>50 WBC/hpf) and CT showing worsening left hydro, with distended bladder (PVR approx 375 per ER). Additionally CT demonstrates multilevel lumbar stenosis and foraminal narrowing -- on right worse at L5-S1 (also, stable appearance of known chronic perianal abcess). Urology consulted and requests Dias (patient declines) and NPO for stent replacement in AM. Patient given MS 2 mg with good pain releif, and Rocephin. I was asked to evaluate for admission. Patient states she is more comfortable at present after the Morphine. Denies fever/chills, flank pain; denies any recent new meds, and states has has been taking good PO. Review of Systems Narrative: prr HPI PFSH All Active Problems (Updated 06/26/21 @ 19:21 by James Potter MD) Radiating back pain (Acute) Anxiety (Chronic) Fatigue (Acute) Need for home health care (Acute) Nausea (Acute) Colostomy in place (Chronic) 03/29/21 [facility] [place]- laproscopic transverse loop colostomy CKD (chronic kidney disease) stage 3, GFR 30-59 ml/min (Acute) Rectal pain, chronic (Chronic) Secondary to rectal cancer surgery & drains/leakage Gastroesophageal reflux disease (Chronic) Varicose veins of lower extremity (Acute) Dysfunctional uterine bleeding (Acute 02/07/02) Abnormal cervical Papanicolaou smear (Acute 07/03/12) Hydronephrosis, left (Chronic) Frequent UTI (Acute) Generalized weakness (Acute) Acute on chronic anemia (Acute) Radiation proctitis (Acute) 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 unilateral kidney. 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 Hypomagnesemia (Acute) Anemia (Acute) Mass of anus (Acute 11/08/17) 11/04/17 -Hyperplastic polyps of descending colon and rectum Invasive keratinizing squamous cell carcinoma -Tumor invading at least rectal mucosa and submucosa [facility] [place] referral initiated by Dr. Wolff Increased BMI (Chronic) Hypothyroidism (Chronic 07/07/12) H/O GRAVES ophthalmopathy Hyperlipidemia (Chronic) Essential hypertension (Chronic 01/02/13) Diabetes mellitus (Chronic 07/07/12) Medical History Abnormal glandular Papanicolaou smear of cervix (04/10/02) Acute kidney injury superimposed on CKD DVT prophylaxis Female infertility GERD (gastroesophageal reflux disease) Graves' disease Hypertension Hypokalemia Hypotension determined by examination Obesity (BMI 30-39.9) Rectal cancer Sepsis Shock circulatory SVT (supraventricular tachycardia) Per pt. r/t to graves disease. Pt. states she has not had any issues with this for a long time. She states she see's her PCP to f/u UTI (urinary tract infection) Varicose veins of both lower extremities Surgical History Cervical Procedure (~1989) CRYOTHERAPY Cortical cataract of left eye Cortical cataract of right eye Endometrial Biopsy (~2002) History of bilateral ligation of fallopian tubes (02/01/14) History of gynecological procedure History of tonsillectomy and adenoidectomy Hx of cystoscopy Hx of removal of cyst right lower gluteus kurt Ligation of fallopian tube Nuclear sclerotic cataract of left eye Nuclear sclerotic cataract of right eye Posterior subcapsular age-related cataract of left eye Posterior subcapsular age-related cataract, right eye Family History Mother , of cirrhosis at age 68, likely from lifelong obesity Diabetes Essential hypertension Depression Heart disease Hyperlipidemia Stroke Liver cancer Father , dad aged 55 from AMI Heart disease Myocardial infarction Sister Hyperlipidemia Asthma Grandfather Neoplasm LUNG Grandmother Stroke Son Diabetes Asthma Daughter Anxiety Heart disease BORN WITH ENLARGED HEART Depression Bipolar Social History Smoking/Tobacco Use Status: Current every day Tobacco Type: cigarettes Tobacco: How many years used: 50 Quit status: not considering quitting Counseling given: counseling >3 minutes Smoking risk assessment performed?: Yes Alcohol Intake: never Drug use: Never Substance use type: does not use Counseling given: No Counseling provided: none Caregiver/Support person: No Household members: spouse and none Housing: apartment Do you need help understanding health information?: Rarely 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 Pets and animals: No Sexually active: No Do you think of yourself as: straight/heterosexual Current gender identity: decline to answer What is your relationship status?: How often do you talk on the phone with friends or family?: three or more times per week How often do you get together with friends or relatives?: decline to answer How often do you attend samaritan or restoration services?: decline to answer Do you belong to any clubs or organized social groups?: decline to answer Panel score (0-1 are the most socially isolated patients): 2 What type of physical activity do you participate in: none Duration: decline to answer Frequency: decline to answer Miranda/Worship: Buddhism Special miranda needs: No Seatbelt use: always Helmet use: No Drive intox or ride w/intox hazmat cdl driver: No Do you feel safe at home: Yes Additional Social history: lives alone, son recently moved in [facility] Allergies and Home Medications Allergies Allergy/AdvReac Type Severity Reaction Status Date / Time copper Allergy Skin Rash Verified 02/27/21 13:09 codeine AdvReac tired Verified 02/27/21 13:09 latex AdvReac eczema Verified 02/27/21 13:09 flares up oxycodone AdvReac pt.unsure Verified 02/27/21 13:09 of reaction Home Medications Medication Instructions Recorded Confirmed Type calcium carbonate 500 mg calcium 1 tab.chew PO BID 06/29/12 05/03/21 History (1,250 mg) tablet blood-glucose meter #1 ea 10/04/14 02/27/21 History ascorbic acid 1,000 1 packet PO DAILY 07/26/15 02/27/21 History yx-zfiysqfgxrfy-umilspxf powder effervescent pack (Emergen-C) fluocinolone 0.025 % topical 1 applic TOPICAL BID #1 script 03/28/16 05/03/21 History ointment (Synalar) acetaminophen 500 mg tablet 500 - 1,000 mg PO TID tab 12/19/20 05/03/21 History blood sugar diagnostic (Blood #300 strip 01/06/21 02/27/21 Rx Glucose Test) lancets 28 gauge #300 each 01/06/21 02/27/21 Rx simvastatin 10 mg tablet (Zocor) 10 mg PO HS #90 tab-cap 02/21/21 05/03/21 Rx metoprolol succinate 25 mg 25 mg PO DAILY #90 tab 02/27/21 05/03/21 Rx tablet,extended release 24 hr levothyroxine 125 mcg tablet 125 mcg PO DAILY #90 tab-cap 02/28/21 05/03/21 Rx pantoprazole 40 mg tablet,delayed 40 mg PO DAILY@0730 #90 tab 03/01/21 05/03/21 Rx release meclizine 12.5 mg tablet 12.5 mg PO TID PRN 05/03/21 05/03/21 History sertraline 100 mg tablet 100 mg PO DAILY #90 tab 06/05/21 Rx glipizide 2.5 mg tablet, extended 2.5 mg PO DAILY #60 tab 06/14/21 Rx release 24 hr tramadol 50 mg tablet 50 mg PO TID PRN #30 tab MDD 150mg 06/23/21 Rx Exam Narrative Exam Narrative: 101/62, 65, 36.4, 18, 98% RA. HEENT atraumatic; neck supple; lunghs clear; jheart RRR; abdomen softand NT, colostomy patent; extremities show wick in perianal location, w/o pedal edema; neuro Ox3, lucid, motor 5/5 LEs, intact light touch LEs Results Labs Result diagrams: 06/26/21 15:09 06/26/21 15:25 Labs: Laboratory Results - last 24 hr 06/26/21 06/26/21 06/26/21 14:36 15:09 15:25 WBC 8.80 RBC 2.79 L Hgb 7.3 L Hct 25.1 L MCV 90.0 MCH 26.2 L MCHC 29.1 L RDW 19.3 H Plt Count 296 MPV 8.5 Immature Gran % 2.2 Neutrophils % 84.5 Lymphocytes % 5.9 Monocytes % 6.9 Eosinophils % 0.2 Basophils % 0.3 Nucleated RBC % 0.0 Absolute Neutrophils 7.43 H Absolute Lymphocytes 0.52 L Absolute Monocytes 0.61 Absolute Eosinophils 0.02 Absolute Basophils 0.03 RBC Morphology See Below Hypochromasia 1+ Anisocytosis 1+ Macrocytosis 1+ Sodium Cancelled 131 L Potassium Cancelled 4.8 Chloride Cancelled 100 Carbon Dioxide Cancelled 20.6 L Anion Gap Cancelled 10.4 BUN Cancelled 49 H Creatinine Cancelled 4.0 H* Estimated GFR/1.73 m2 Cancelled 11.17 Glucose Cancelled 164 H Calcium Cancelled 9.0 Magnesium Cancelled 1.9 Total Bilirubin Cancelled 0.3 AST Cancelled 18 ALT Cancelled 22 Alkaline Phosphatase Cancelled 184 H Total Protein Cancelled 8.0 Albumin Cancelled 2.4 L Urine Color Urine Clarity Urine pH Ur Specific [place] Urine Protein Urine Ketones Urine Blood Urine Nitrite Urine Bilirubin Urine Urobilinogen Ur Leukocyte Esterase Urine RBC Urine WBC Ur Epithelial Cells Urine Crystals Urine Bacteria Urine Casts Urine Mucus Ur Culture Indicated? Urine Glucose COVID-19 Source 06/26/21 06/26/21 17:02 18:00 WBC RBC Hgb Hct MCV MCH MCHC RDW Plt Count MPV Immature Gran % Neutrophils % Lymphocytes % Monocytes % Eosinophils % Basophils % Nucleated RBC % Absolute Neutrophils Absolute Lymphocytes Absolute Monocytes Absolute Eosinophils Absolute Basophils RBC Morphology Hypochromasia Anisocytosis Macrocytosis Sodium Potassium Chloride Carbon Dioxide Anion Gap BUN Creatinine Estimated GFR/1.73 m2 Glucose Calcium Magnesium Total Bilirubin AST ALT Alkaline Phosphatase Total Protein Albumin Urine Color Yellow Urine Clarity Clear Urine pH 6.0 Ur Specific [place] 1.025 Urine Protein 100 H Urine Ketones Negative Urine Blood Small H Urine Nitrite Negative Urine Bilirubin Negative Urine Urobilinogen 0.2 Ur Leukocyte Esterase Small H Urine RBC 3-5 H Urine WBC >50 H Ur Epithelial Cells Few Urine Crystals Negative Urine Bacteria Moderate Urine Casts Negative Urine Mucus Trace Ur Culture Indicated? Yes Urine Glucose Negative COVID-19 Source Nasal/Nares Last Vital Signs Temp 36.4 C 06/26/21 13:56 Pulse 65 06/26/21 17:04 Resp 18 06/26/21 17:04 BP 101/62 06/26/21 17:04 Pulse Ox 98 06/26/21 17:04
--- NOTE | 2021-06-26 19:25 | NUR.NOTE ---
Nursing Note: Patient up to commode, 1-2 assist. Patient urinated. Post void residual of 281ml. Providers aware.
[2021-06-26 19:26] VITALS: BP 120/74; PULSE 67; RESP 18; O2SAT 96
[2021-06-26] MEDS: MORPHine 4 MG/ML SYR (19:59)
[2021-06-26 20:52] VITALS: BP 128/75; PULSE 85; RESP 18; TEMP 36.1; O2SAT 100
[2021-06-26] MEDS: Normal Saline 1,000 ML 100 ML IV (21:21)
[2021-06-26] MEDS: Simvastatin 10 MG TAB PO (21:27)
[2021-06-26] MEDS: Gabapentin 300 MG CAP PO (21:27)
[2021-06-26 22:55] VITALS: BP 137/77; PULSE 76; RESP 16; TEMP 37; O2SAT 97
[2021-06-26] MEDS: MORPHine 10 MG/ML VIAL IVP (23:00)
[2021-06-27] MEDS: Levothyroxine 125 MCG TAB PO (05:54)
[2021-06-27 06:57] LABS: Anion Gap 13.1 mmol/L (3-11); BUN 42 mg/dL (7-18); CO2 18.9 mmol/L (21.0-32.0); Calcium 8.6 mg/dL (8.5-10.1); Chloride 103 mmol/L (98-107); Estimated GFR 11.85 (mL/min/1.73m2); Glucose 148 mg/dL (74-106); Potassium 4.4 mmol/L (3.5-5.1); Sodium 135 mmol/L (136-145)
[2021-06-27 07:02] LABS: CREATININE 3.8 mg/dL (0.55-1.02)
--- NOTE | 2021-06-27 07:03 | NUR.NOTE ---
Nursing Note: Lab called nursing station with critical lab value of creatinine of 3.8. primary nurse aware. Charge nurse informed.
--- NOTE | 2021-06-27 07:07 | W.UROLOGYCON ---
Date of service: 06/27/21 Time of Service: 07:08 Assessment and Plan Assessment and plan (1) Hydronephrosis: Status: Acute (2) KYLE (acute kidney injury): Status: Acute Assessment and plan: I am not certain how much of her renal function deterioration is related to her hydronephrosis. She is certainly due for a stent change anyway, so we will go ahead and change her ureteral stent in the operating room and monitor her renal function. If she does not respond to the stent change, we would likely need to enlist the help of nephrology at one of the tertiary care centers. History of Present Illness History of Present Illness Chief Complaint: Left hydronephrosis Narrative: The's is a 65-year-old woman who has a history of anal cancer. She was treated with a combination of surgery, radiation therapy and chemotherapy. When I initially met her, she developed gross hematuria with clot retention. She was found to have a noninvasive urothelial cell carcinoma of the bladder. She was treated with transurethral resection. She then developed left hydronephrosis from a ureteral stricture. No intraureteral lesion was identified on ureteroscopy, so the suspected cause is a stricture related to radiation therapy. She has been treated with an indwelling ureteral stent. Her last stent was placed about 6 months ago. The stents are usually changed routinely every 3 to 6 months. She comes in now with signs of a urinary tract infection but also with worsening renal function and worsening left-sided hydronephrosis. Review of Systems Narrative: c/o fatigue. No fevers or chills No vision change or dysphasia Hx hypothyroidism and diabetes. No shortness of breath, cough or hemoptysis No chest pain or palpitations Drainage from perineal drains. Colostomy functioning well. No nausea, vomiting, hepatitis, ulcers, jaundice No seizures, strokes No bleeding disorders Back pain radiating down right leg. No gout PFSH All Active Problems (Updated 06/26/21 @ 20:23 by KATIE Peter) KYLE (acute kidney injury) (Acute) Acute UTI (Acute) Acute right-sided low back pain with right-sided sciatica (Acute) Hydronephrosis (Acute) Radiating back pain (Acute) Anxiety (Chronic) Fatigue (Acute) Need for home health care (Acute) Nausea (Acute) Colostomy in place (Chronic) 03[place]29[place] [facility] [place] CKD (chronic kidney disease) stage 3, GFR 30-59 ml/min (Acute) Rectal pain, chronic (Chronic) Secondary to rectal cancer surgery & drains/leakage Gastroesophageal reflux disease (Chronic) Varicose veins of lower extremity (Acute) Dysfunctional uterine bleeding (Acute 02/07/02) Abnormal cervical Papanicolaou smear (Acute 07/03/12) Hydronephrosis, left (Chronic) Frequent UTI (Acute) Generalized weakness (Acute) Acute on chronic anemia (Acute) 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 unilateral kidney. 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 Hypomagnesemia (Acute) Anemia (Acute) Mass of anus (Acute 11/08/17) 11/04/17 -Hyperplastic polyps of descending colon and rectum Invasive keratinizing squamous cell carcinoma -Tumor invading at least rectal mucosa and submucosa [facility] [place] by Dr. Wolff Increased BMI (Chronic) Hypothyroidism (Chronic 07/07/12) H/O GRAVES ophthalmopathy Hyperlipidemia (Chronic) Essential hypertension (Chronic 01/02/13) Diabetes mellitus (Chronic 07/07/12) Medical History Abnormal glandular Papanicolaou smear of cervix (04/10/02) Acute kidney injury superimposed on CKD DVT prophylaxis Female infertility GERD (gastroesophageal reflux disease) Graves' disease Hypertension Hypokalemia Hypotension determined by examination Obesity (BMI 30-39.9) Rectal cancer Sepsis Shock circulatory SVT (supraventricular tachycardia) Per pt. r/t to graves disease. Pt. states she has not had any issues with this for a long time. She states she see's her PCP to f/u UTI (urinary tract infection) Varicose veins of both lower extremities Surgical History Cervical Procedure (~1989) CRYOTHERAPY Cortical cataract of left eye Cortical cataract of right eye Endometrial Biopsy (~2002) History of bilateral ligation of fallopian tubes (02/01/14) History of gynecological procedure History of tonsillectomy and adenoidectomy Hx of cystoscopy Hx of removal of cyst right lower gluteus kurt Ligation of fallopian tube Nuclear sclerotic cataract of left eye Nuclear sclerotic cataract of right eye Posterior subcapsular age-related cataract of left eye Posterior subcapsular age-related cataract, right eye Family History Mother , of cirrhosis at age 68, likely from lifelong obesity Diabetes Essential hypertension Depression Heart disease Hyperlipidemia Stroke Liver cancer Father , dad aged 55 from AMI Heart disease Myocardial infarction Sister Hyperlipidemia Asthma Grandfather Neoplasm LUNG Grandmother Stroke Son Diabetes Asthma Daughter Anxiety Heart disease BORN WITH ENLARGED HEART Depression Bipolar Social History Smoking/Tobacco Use Status: Current every day Tobacco Type: cigarettes Tobacco: How many years used: 50 Quit status: not considering quitting Counseling given: counseling >3 minutes Smoking risk assessment performed?: Yes Alcohol Intake: never Drug use: Never Substance use type: does not use Counseling given: No Counseling provided: none Caregiver/Support person: No Household members: spouse and none Housing: apartment Do you need help understanding health information?: Rarely 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 Pets and animals: No Sexually active: No Do you think of yourself as: straight/heterosexual Current gender identity: decline to answer What is your relationship status?: How often do you talk on the phone with friends or family?: three or more times per week How often do you get together with friends or relatives?: decline to answer How often do you attend hindu or christian services?: decline to answer Do you belong to any clubs or organized social groups?: decline to answer Panel score (0-1 are the most socially isolated patients): 2 What type of physical activity do you participate in: none Duration: decline to answer Frequency: decline to answer Miranda/Sikhism: Baptist Special miranda needs: No Seatbelt use: always Helmet use: No Drive intox or ride w/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 Do you feel safe at home: Yes Additional Social history: lives alone, son recently moved in Exam Const General: frail appearing Neck Neck: supple Resp Effort & Inspection: normal respiratory effort GI Palpation: soft Other: Colostomy left abdomen with pink mucosa Neuro General: patient alert, patient awake and patient oriented x3 Results Last Vital Signs Temp 37.0 C 06/26/21 22:55 Pulse 76 06/26/21 22:55 Resp 16 06/26/21 22:55 BP 137/77 06/26/21 22:55 Pulse Ox 97 06/26/21 22:55 Labs Result diagrams: 06/26/21 15:09 06/27/21 06:40 Labs: Laboratory Results - last 24 hr 06/26/21 06/26/21 06/26/21 14:36 15:09 15:25 WBC 8.80 RBC 2.79 L Hgb 7.3 L Hct 25.1 L MCV 90.0 MCH 26.2 L MCHC 29.1 L RDW 19.3 H Plt Count 296 MPV 8.5 Immature Gran % 2.2 Neutrophils % 84.5 Lymphocytes % 5.9 Monocytes % 6.9 Eosinophils % 0.2 Basophils % 0.3 Nucleated RBC % 0.0 Absolute Neutrophils 7.43 H Absolute Lymphocytes 0.52 L Absolute Monocytes 0.61 Absolute Eosinophils 0.02 Absolute Basophils 0.03 RBC Morphology See Below Hypochromasia 1+ Anisocytosis 1+ Macrocytosis 1+ Sodium Cancelled 131 L Potassium Cancelled 4.8 Chloride Cancelled 100 Carbon Dioxide Cancelled 20.6 L Anion Gap Cancelled 10.4 BUN Cancelled 49 H Creatinine Cancelled 4.0 H* Estimated GFR/1.73 m2 Cancelled 11.17 Glucose Cancelled 164 H Calcium Cancelled 9.0 Magnesium Cancelled 1.9 Total Bilirubin Cancelled 0.3 AST Cancelled 18 ALT Cancelled 22 Alkaline Phosphatase Cancelled 184 H Total Protein Cancelled 8.0 Albumin Cancelled 2.4 L Urine Color Urine Clarity Urine pH Ur Specific [place] Urine Protein Urine Ketones Urine Blood Urine Nitrite Urine Bilirubin Urine Urobilinogen Ur Leukocyte Esterase Urine RBC Urine WBC Ur Epithelial Cells Urine Crystals Urine Bacteria Urine Casts Urine Mucus Ur Culture Indicated? Urine Glucose COVID-19 Source SARS-CoV-2 (PCR) 06/26/21 06/26/21 06/27/21 17:02 18:00 06:40 WBC RBC Hgb Hct MCV MCH MCHC RDW Plt Count MPV Immature Gran % Neutrophils % Lymphocytes % Monocytes % Eosinophils % Basophils % Nucleated RBC % Absolute Neutrophils Absolute Lymphocytes Absolute Monocytes Absolute Eosinophils Absolute Basophils RBC Morphology Hypochromasia Anisocytosis Macrocytosis Sodium 135 L Potassium 4.4 Chloride 103 Carbon Dioxide 18.9 L Anion Gap 13.1 H BUN 42 H Creatinine 3.8 H* Estimated GFR/1.73 m2 11.85 Glucose 148 H Calcium 8.6 Magnesium Total Bilirubin AST ALT Alkaline Phosphatase Total Protein Albumin Urine Color Yellow Urine Clarity Clear Urine pH 6.0 Ur Specific [place] 1.025 Urine Protein 100 H Urine Ketones Negative Urine Blood Small H Urine Nitrite Negative Urine Bilirubin Negative Urine Urobilinogen 0.2 Ur Leukocyte Esterase Small H Urine RBC 3-5 H Urine WBC >50 H Ur Epithelial Cells Few Urine Crystals Negative Urine Bacteria Moderate Urine Casts Negative Urine Mucus Trace Ur Culture Indicated? Yes Urine Glucose Negative COVID-19 Source Nasal/Nares SARS-CoV-2 (PCR) Negative
[2021-06-27 07:20] VITALS: BP 129/74; PULSE 83; RESP 18; TEMP 37.2; O2SAT 96
[2021-06-27] MEDS: Sertraline 100 MG TAB PO (07:55)
[2021-06-27] MEDS: Gabapentin 300 MG CAP PO ×3 (07:55→20:21)
[2021-06-27] MEDS: Pantoprazole 40 MG TABCR PO (07:55)
[2021-06-27] MEDS: Metoprolol CR 25 MG TABCR PO (07:55)
--- NOTE | 2021-06-27 10:34 | W.ANESPRE ---
General Info Date of Service Date Performed: 06/27/21 Height: 5 ft 4 in Weight: 88.904 kg Body Mass Index (BMI): 33.6 Surgical Procedure: Operation Date: 06/27/21 11:10 Proposed Procedure Side Surgeon p Cystoscopy with Stent Change Left Chris Ruiz MD Meds Allergies and Home Medications Allergies Allergy/AdvReac Type Severity Reaction Status Date / Time copper Allergy Skin Rash Verified 06/26/21 19:40 codeine AdvReac tired Verified 06/26/21 19:40 latex AdvReac eczema Verified 06/26/21 19:40 flares up oxycodone AdvReac pt.unsure Verified 06/26/21 19:40 of reaction Home Medication Medication Instructions Recorded calcium carbonate 500 mg calcium 1 tab.chew PO BID 06/29/12 (1,250 mg) tablet blood-glucose meter #1 ea 10/04/14 ascorbic acid 1,000 1 packet PO DAILY 07/26/15 [id number] powder effervescent pack (Emergen-C) fluocinolone 0.025 % topical 1 applic TOPICAL BID #1 script 03/28/16 ointment (Synalar) acetaminophen 500 mg tablet 500 - 1,000 mg PO TID tab 12/19/20 blood sugar diagnostic (Blood #300 strip 01/06/21 Glucose Test) lancets 28 gauge #300 each 01/06/21 simvastatin 10 mg tablet (Zocor) 10 mg PO HS #90 tab-cap 02/21/21 metoprolol succinate 25 mg 25 mg PO DAILY #90 tab 02/27/21 tablet,extended release 24 hr levothyroxine 125 mcg tablet 125 mcg PO DAILY #90 tab-cap 02/28/21 pantoprazole 40 mg tablet,delayed 40 mg PO DAILY@0730 #90 tab 03/01/21 release meclizine 12.5 mg tablet 12.5 mg PO TID PRN 05/03/21 sertraline 100 mg tablet 100 mg PO DAILY #90 tab 06/05/21 glipizide 2.5 mg tablet, extended 2.5 mg PO DAILY #60 tab 06/14/21 release 24 hr tramadol 50 mg tablet 50 mg PO TID PRN #30 tab MDD 150mg 06/23/21 Current Visit Medications: Current Medications Generic Name Dose Route Start Last Admin Trade Name Freq PRN Reason Stop Dose Admin Dimethicone/Zinc Oxide 0 gm 06/26/21 19:29 Rozina Protect Cream 142 Gm Tube TP PRN PRN Gabapentin 300 mg 06/26/21 20:00 06/27/21 07:55 Gabapentin 300 Mg Cap PO 300 mg TID HARRIET Administration Ceftriaxone Sodium/Dextrose 1 gm in 50 mls @ 100 mls/hr 06/27/21 18:00 Rocephin IVPB Q24H HARRIET Sodium Chloride 1,000 mls @ 100 mls/hr 06/26/21 19:30 06/26/21 21:21 Saline 1000ml Bag IV 100 mls/hr INFUSION HARRIET Administration Acetaminophen 1,000 mg in 100 mls @ 400 mls/hr 06/26/21 19:34 Ofirmev IVPB Q8H PRN PRN Levothyroxine Sodium 125 mcg 06/28/21 06:00 Levothyroxine 125 Mcg Tab PO DAILY@0600 HARRIET Melatonin 6 mg 06/27/21 09:43 Melatonin 3 Mg Tab PO HS PRN PRN Metoprolol Succinate 25 mg 06/27/21 08:30 06/27/21 07:55 Metoprolol Cr 25 Mg Tabcr PO 25 mg DAILY HARRIET Administration Morphine Sulfate 2 - 4 mg 06/27/21 09:41 Morphine 4 Mg/Ml Syr IVP Q2H PRN PRN Pantoprazole Sodium 40 mg 06/27/21 07:30 06/27/21 07:55 Pantoprazole 40 Mg Tabcr PO 40 mg DAILY@0730 HARRIET Administration Sertraline HCl 100 mg 06/27/21 08:30 06/27/21 07:55 Sertraline 100 Mg Tab PO 100 mg DAILY HARRIET Administration Simvastatin 10 mg 06/26/21 22:00 06/26/21 21:27 Simvastatin 10 Mg Tab PO 10 mg HS HARRIET Administration PFSH Active Problems Active Problems: Problem Status Onset Code KYLE (acute kidney injury) N17.9 Acute UTI N39.0 Acute right-sided low back pain with right-sided sciatica M54.41 Hydronephrosis N13.30 Radiating back pain M54.9 COVID U07.1 Anxiety F41.9 Fatigue R53.83 Need for home health care Z74.2 Nausea R11.[address] Z93.3 CKD (chronic kidney disease) stage 3, GFR 30-59 ml/min N18.30 Rectal pain, chronic K62.89, G89.29 Gastroesophageal reflux disease K21.9 Varicose veins of lower extremity I83.90 Dysfunctional uterine bleeding 02/07/02 N93.8 Abnormal cervical Papanicolaou smear 07/03/12 R87.619 Hydronephrosis, left N13.30 Frequent UTI N39.0 Generalized weakness R53.1 Acute on chronic anemia D64.9 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 Acquired anal stenosis K62.4 Chronic back pain M54.9, G89.29 Colovaginal fistula 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 Palliative care patient Z51.5 Physician orders for life-sustaining treatment (POLST) form indicates patient wish for ki-[id number]-[id number] status Z66 DNR (do not resuscitate) Z66 Bowel incontinence R15.9 Bladder incontinence R32 Bladder cancer C67.9 Hematuria R31.9 Depression due to physical illness Debility R53.81 Peripheral edema R60.9 Cancer related pain G89.3 Advanced directives, counseling/discussion Z71.89 Goals of care, counseling/discussion Z71.89 Acute kidney failure N17.9 Hypomagnesemia E83.42 Anemia D64.9 Smoker F17.200 Mass of anus 11/08/17 K62.89 Increased BMI R63.8 Hypothyroidism 07/07/12 E03.9 Hyperlipidemia E78.5 Essential hypertension 01/02/13 I10 Diabetes mellitus 07/07/12 E11.9 Medical History Medical History Abnormal glandular Papanicolaou smear of cervix (04/10/02) Acute kidney injury superimposed on CKD DVT prophylaxis Female infertility GERD (gastroesophageal reflux disease) Graves' disease Hypertension Hypokalemia Hypotension determined by examination Obesity (BMI 30-39.9) Rectal cancer Sepsis Shock circulatory SVT (supraventricular tachycardia) Per pt. r/t to graves disease. Pt. states she has not had any issues with this for a long time. She states she see's her PCP to f/u UTI (urinary tract infection) Varicose veins of both lower extremities Surgical History Surgical History Cervical Procedure (~1989) CRYOTHERAPY Cortical cataract of left eye Cortical cataract of right eye Endometrial Biopsy (~2002) History of bilateral ligation of fallopian tubes (02/01/14) History of gynecological procedure History of tonsillectomy and adenoidectomy Hx of cystoscopy Hx of removal of cyst right lower gluteus kurt Ligation of fallopian tube Nuclear sclerotic cataract of left eye Nuclear sclerotic cataract of right eye Posterior subcapsular age-related cataract of left eye Posterior subcapsular age-related cataract, right eye Tobacco Smoking/Tobacco Use Status: Current every day Tobacco Type: cigarettes Smoking cigarettes per day: 2 Passive smoking exposure: No Counseling given: counseling >3 minutes Alcohol Alcohol Intake: never Substance Use Substance use: Never Substance use type: does not use Counseling provided: none Vital Signs and Lab Results Vital Signs Most Recent Vital Signs in EMR: Most Recent Vital Signs Temp Pulse Resp BP Pulse Ox 37.2 C 83 18 129/74 96 06/27/21 07:20 06/27/21 07:20 06/27/21 07:20 06/27/21 07:20 06/27/21 07:20 Lab Results Result Diagrams: 06/26/21 15:06/27/21 06:40 Blood Type / Crossmatch: No Data to Display Complete Blood Count: White Blood Count 8.80 10^3/uL (4.4-10.8) 06/26/21 15:09 06/26/21 Red Blood Count 2.79 10^6/uL (3.93-5.22) L 06/26/21 15:09 06/26/21 Hemoglobin 7.3 g/dL (11.2-15.7) L 06/26/21 15:09 06/26/21 Hematocrit 25.1 % (36.0-46.0) L 06/26/21 15:09 06/26/21 Platelet Count 296 10^3/uL (130-400) 06/26/21 15:09 06/26/21 Complete Metabolic Panel: Sodium Level 135 mmol/L (136-145) L 06/27/21 06:40 06/27/21 Potassium Level 4.4 mmol/L (3.5-5.1) 06/27/21 06:40 06/27/21 Chloride Level 103 mmol/L (98-107) 06/27/21 06:40 06/27/21 Carbon Dioxide Level 18.9 mmol/L (21.0-32.0) L 06/27/21 06:40 06/27/21 Blood Urea Nitrogen 42 mg/dL (7-18) H 06/27/21 06:40 06/27/21 Creatinine 3.8 mg/dL (0.55-1.02) H* 06/27/21 06:40 06/27/21 Estimated GFR/1.73 m2 11.85 (mL/min/1.73m2) 06/27/21 06:40 06/27/21 Magnesium Level 1.9 mg/dL (1.8-2.4) 06/26/21 15:25 06/26/21 Calcium Level 8.6 mg/dL (8.5-10.1) 06/27/21 06:40 06/27/21 Albumin 2.4 g/dL (3.4-5.0) L 06/26/21 15:25 06/26/21 Glucose Level 148 mg/dL (74-106) H 06/27/21 06:40 06/27/21 Liver Function Panel: Alanine Aminotransferase (ALT/SGPT) 22 U/L (14-59) 06/26/21 15:25 06/26/21 Aspartate Amino Transf (AST/SGOT) 18 U/L (15-37) 06/26/21 15:25 06/26/21 Coagulation Panel: No Data to Display Cardiac Panel: No Data to Display Arterial Blood Gas: No Data to Display Venous Blood Gas: No Data to Display Pancreas Panel: No Data to Display Thyroid Panel: No Data to Display Infectious Disease: Coronavirus (COVID-19)(PCR) Negative (Negative) 06/26/21 18:00 06/26/21 Coronavirus 2019 Source Nasal/Nares 06/26/21 18:00 06/26/21 Blood Cultures: No Data to Display Toxicology Panel: No Data to Display Imaging and Studies Imaging and Studies Study information below may be from another EMR and interpreted by another provider. Please see original notes in EMR for more complete details. EKG Summary: Conclusion Sinus or ectopic atrial tachycardia...P axis (-45,135), rate> 99 I have reviewed and interpreted ECG and agree with software generated interpretation. Anesthesia Assessment and Plan Anesthesia History Personal History: No History of Anesthesia Complications Family History: No Family History of Anesthesia Complications Exercise Tolerance Exercise Tolerance: Metabolic Equivalents<4 Pertinent Negatives Pertinent Negatives: No Symptoms of GERD, No Major Cardiovascular Symptoms or Complaints, No Major Pulmonary Symptoms or Complaints and Other (Numbness in toes) Cardiac & Pulmonary Exam Cardiac Exam: Normal S1/S2 Heart Sounds Pulmonary Exam: Clear Bilateral Breath Sounds Implantable Cardiac Device Does patient have a Pacemaker or an ICD?: No Airway Exam Known Difficult Airway: No Mallampati Class: 2 Mouth Opening: Normal (> 3cm) Thyromental Distance: Less than 3 cm Neck Range of Motion: Full ROM and Limited ROM Neck Circumference: Thick Teeth Condition: Removable Dentures/Plates Upper, Removable Dentures/Plates Lower and Edentulous Airway Comments: Morbidly obese presumed decreased FRC ASA Classification ASA Score: ASA 3 Emergency Case?: Yes NPO Status NPO Status: NPO Clears >2 hours, Solids >8 hours Anesthesia Plan Resuscitation Status: Full Code Anesthesia Technique: General Anesthesia Airway Planned: Natural Airway Monitors Used: Standard Monitors
--- NOTE | 2021-06-27 10:45 | DI.RAD_ITS ---
Exam(s) XR RETROGRADE IN OR EXAM: XR RETROGRADE IN OR CLINICAL HISTORY: HYDRONEPHROSIS. TECHNIQUE: 2D digital imaging was performed. COMPARISON: No exams were available for comparison FINDINGS: Fluoroscopy was provided for retrograde study performed by the urologist. Please see procedure repor t for details. Total fluoroscopy time 5 seconds Total cumulative dose= 1.36 mGy IMPRESSION: DATA REPOSITORY: RADIATION DOSE DELIVERED:
[2021-06-27 11:21] VITALS: BMI 33.6
[2021-06-27] MEDS: Omnipaque 300 MG/ML 50 ML BTL (11:47)
[2021-06-27] MEDS: Lidocaine 2% Jelly 6 ML SYR (11:47)
[2021-06-27 12:24] VITALS: BP 108/67; PULSE 71; RESP 16; TEMP 35.3; O2SAT 97
--- NOTE | 2021-06-27 12:25 | W.PM.OP ---
Date of service: 06/27/21 Time of Service: 12:25 Operative Note Operative Note DATE OF PROCEDURE: 06/27/21 PRE-OP DIAGNOSIS: Left hydronephrosis POST-OP DIAGNOSIS: same Ureteral stricture PROCEDURE: Cystoscopy, exchange of left ureteral stent SURGEON: Chris Ruiz ANESTHESIA TYPE: General:No Airway Refer to Anesthesia Record ESTIMATED BLOOD LOSS: 0 PATHOLOGY: none sent Patient was transported to: floor Patient's condition: stable Implants: 7 Algerian by 22 to 30 cm left ureteral stent 16 Algerian Dias catheter with 10 cc of sterile water in balloon Indications: This is a 65-year-old woman who has a history of anal cancer. She was treated with a combination of surgery, radiation therapy and chemotherapy. Unfortunately, she developed a left ureteral stricture that is treated with a chronic indwelling stent. Her current stent was placed about 6 months ago and she is due for routine change. She presented to the emergency room last evening with back pain extending down the right leg. She was found to have an elevated serum creatinine and on CT scan while her stent was in place, her hydronephrosis was worsened. She is agreeable to a stent change. Findings: Dilated left collecting system Procedure Description: The patient was brought to the the operating room on 06/27/2021. She was placed in the dorsal lithotomy position. She was given general anesthesia without intubation. Her genitalia was prepped and draped. 2% Xylocaine jelly was instilled into the urethra to act as a local anesthetic. A 22 Algerian rigid cystoscope was passed through the urethra into the bladder. The bladder was inspected with a 30 degree lens. The stent could be seen protruding from the left ureteral orifice. Some soft debris was attached to the stent. The remainder the bladder showed no new papillary or nodular lesions. The stent was grasped and alligator forceps and brought out to the level of the urethral meatus. A Glidewire was advanced through the lumen of the stent and the stent was removed. A 5 Algerian access catheter was then advanced over the wire and the wire was removed. A retrograde pyelogram was then obtained by injecting Omnipaque through the access catheter under fluoroscopic guidance. The dilated renal pelvis was outlined. The Glidewire was then reintroduced and the access catheter was removed. A 7 Algerian by 22 to 30 cm length stent was then advanced over the guidewire. The proximal end of the stent was curled in the renal pelvis and the distal end was curled in the bladder. The positioning of the stent was confirmed both fluoroscopically and cystoscopically. The scope was removed. A 16 Algerian Dias catheter was then passed through the urethra into the bladder. The catheter balloon was inflated with 10 cc of sterile water. The catheter was hooked to gravity drainage. She tolerated this procedure well. There were no complications. She was then taken back to the medical surgical unit in stable condition.
[2021-06-27 12:41] VITALS: BP 103/66; PULSE 71; RESP 16; TEMP 36.2; O2SAT 95
[2021-06-27 13:46] VITALS: BP 111/69; PULSE 72; RESP 17; TEMP 36.5; O2SAT 94
--- NOTE | 2021-06-27 14:15 | W.ANESPOSTOP ---
Postoperative Evaluation Date, Time and Location Date Performed: 06/27/21 Time Performed: 12:24 Patient Location: Med/Surg Vital Signs Most Recent Imported Vital Signs: Most Recent Vital Signs Temp Pulse Resp BP Pulse Ox 36.5 C 72 17 111/69 94 06/27/21 13:46 06/27/21 13:46 06/27/21 13:46 06/27/21 13:46 06/27/21 13:46 Pain Score Most Recent Pain Score: Most Recent Pain Score Pain Level 0 06/27/21 13:46 Assessment Mental Status: Awake (Alert & Oriented to Patient Baseline) Airway and Respiratory Function: Patent airway with normal (patient baseline) respiratory exam Cardiovascular Function: Hemodynamically Stable Hydration Status: Adequately Hydrated Nausea & Vomiting: No Nausea or Vomiting Pain: Pt. Denies Any Pain Peripheral Nerve Block: Patient did not receive a nerve block
[2021-06-27 15:05] VITALS: BP 110/68; PULSE 72; RESP 16; TEMP 36.6; O2SAT 95
--- NOTE | 2021-06-27 15:35 | PGE_ITS ---
Date of Service Date of service: 06/27/21 Time of Service: 15:36 Assessment and Plan Assessment and plan (1) Hydronephrosis: Status: Acute Assessment and plan: Left-sided hydronephrosis secondary to obstructed ureteral stent. Status post stent exchange. Hopefully this will improve her renal function. We will continue IV hydration overnight and monitor her BUN and creatinine and urine output. At present she is draining large amount of clear yellow urine in her Dias catheter. She will continue on Rocephin for her acute Proteus UTI. Dr. Ruiz from urology is following along and performed her stent exchanged earlier today. (2) KYLE (acute kidney injury): Status: Acute Assessment and plan: Acute kidney injury in the setting of chronic kidney disease. It appears that her baseline creatinine varies between 1.6 and 1.8. It was up to 4.0 last night is down to 3.8 this morning. She seems to be making good urine output since placement of Dias catheter. She did have problems with urinary retention last night requiring a Dias catheter. We will continue to monitor urine output and repeat her BMP in the morning (3) Acute UTI: Status: Acute Assessment and plan: Urine culture is already growing Proteus.Patient is currently on Rocephin 1 g IV daily. (4) Acute right-sided low back pain with right-sided sciatica: Status: Acute Assessment and plan: Patient has multilevel degenerative disc changes with spinal canal stenosis and neuroforaminal stenosis. There appear to be no destructive lesions of her lumbar spine. Given her renal dysfunction we will just treat her with Tylenol for now. (5) CKD (chronic kidney disease) stage 3, GFR 30-59 ml/min: Status: Acute Assessment and plan: Baseline creatinine varies between 1.6 and 1.8. Currently creatinine is up to 4.0. Hopefully this will resolve with alleviation of her obstructive uropathy. (6) Rectal pain, chronic: Status: Chronic Assessment and plan: At home patient was on tramadol but for now we will treat her with Tylenol IV. If her renal function improves then we can resume her tramadol. Subjective Subjective Interval history since last seen: Sherry had left ureteral stent exchanged today by Dr. Ruiz. This was done d/t left hydronephrosis. 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 she also has hx of noninvasive urothelial cell bladder cancer treated with transurethral bladder resection. Patient presented last night with with acute on chronic kidney failure with a creatinine of 4.0 up from her baseline of 1.9 was found to have urinary tract infection. Patient was started on Rocephin. Urine cultures growing Proteus. Patient is feeling better today since she had her operation although she does complain of some rectal pain which is chronic. Exam Narrative Exam Narrative: Elderly female lying in bed in no acute distress. Lungs are clear to auscultation Heart is regular rate and rhythm Abdomen soft nondistended nontender. Objective Last Vital Signs Temp 36.6 C 06/27/21 15:05 Pulse 72 06/27/21 15:05 Resp 16 06/27/21 15:05 BP 110/68 06/27/21 15:05 Pulse Ox 95 06/27/21 15:05 Laboratory Results - last 24 hr 06/26/21 06/26/21 06/26/21 15:09 15:25 17:02 WBC 8.80 RBC 2.79 L Hgb 7.3 L Hct 25.1 L MCV 90.0 MCH 26.2 L MCHC 29.1 L RDW 19.3 H Plt Count 296 MPV 8.5 Immature Gran % 2.2 Neutrophils % 84.5 Lymphocytes % 5.9 Monocytes % 6.9 Eosinophils % 0.2 Basophils % 0.3 Nucleated RBC % 0.0 Absolute Neutrophils 7.43 H Absolute Lymphocytes 0.52 L Absolute Monocytes 0.61 Absolute Eosinophils 0.02 Absolute Basophils 0.03 RBC Morphology See Below Hypochromasia 1+ Anisocytosis 1+ Macrocytosis 1+ Sodium 131 L Potassium 4.8 Chloride 100 Carbon Dioxide 20.6 L Anion Gap 10.4 BUN 49 H Creatinine 4.0 H* Estimated GFR/1.73 m2 11.17 Glucose 164 H Calcium 9.0 Magnesium 1.9 Total Bilirubin 0.3 AST 18 ALT 22 Alkaline Phosphatase 184 H Total Protein 8.0 Albumin 2.4 L Urine Color Yellow Urine Clarity Clear Urine pH 6.0 Ur Specific [place] 1.025 Urine Protein 100 H Urine Ketones Negative Urine Blood Small H Urine Nitrite Negative Urine Bilirubin Negative Urine Urobilinogen 0.2 Ur Leukocyte Esterase Small H Urine RBC 3-5 H Urine WBC >50 H Ur Epithelial Cells Few Urine Crystals Negative Urine Bacteria Moderate Urine Casts Negative Urine Mucus Trace Ur Culture Indicated? Yes Urine Glucose Negative COVID-19 Source SARS-CoV-2 (PCR) 06/26/21 06/27/21 18:00 06:40 WBC RBC Hgb Hct MCV MCH MCHC RDW Plt Count MPV Immature Gran % Neutrophils % Lymphocytes % Monocytes % Eosinophils % Basophils % Nucleated RBC % Absolute Neutrophils Absolute Lymphocytes Absolute Monocytes Absolute Eosinophils Absolute Basophils RBC Morphology Hypochromasia Anisocytosis Macrocytosis Sodium 135 L Potassium 4.4 Chloride 103 Carbon Dioxide 18.9 L Anion Gap 13.1 H BUN 42 H Creatinine 3.8 H* Estimated GFR/1.73 m2 11.85 Glucose 148 H Calcium 8.6 Magnesium Total Bilirubin AST ALT Alkaline Phosphatase Total Protein Albumin Urine Color Urine Clarity Urine pH Ur Specific [place] Urine Protein Urine Ketones Urine Blood Urine Nitrite Urine Bilirubin Urine Urobilinogen Ur Leukocyte Esterase Urine RBC Urine WBC Ur Epithelial Cells Urine Crystals Urine Bacteria Urine Casts Urine Mucus Ur Culture Indicated? Urine Glucose COVID-19 Source Nasal/Nares SARS-CoV-2 (PCR) Negative
[2021-06-27] MEDS: ACETAMINOPHEN 1,000 MG/100 ML BTL 400 MG IVPB (15:55)
[2021-06-27] MEDS: Normal Saline 1,000 ML 100 ML IV (16:05)
--- NOTE | 2021-06-27 17:42 | INITIAL_ITS ---
- If Service Date Differs Date of service: 06/27/21 Time of Service: 17:42 Care Management Initial Assess REASON FOR HOSPITALIZATION:: Sciatica, UTI, KYLE PAST MEDICAL HISTORY/PAST SURGICAL HISTORY:: All Active Problems. Radiating back pain (Acute). Anxiety (Chronic). Fatigue (Acute). Need for home health care (Acute). Nausea (Acute). Colostomy in place (Chronic). [place] [facility] [place]. CKD (chronic kidney disease) stage 3, GFR 30-59 ml/min (Acute). Rectal pain, chronic (Chronic). Secondary to rectal cancer surgery & drains/leakage. Gastroesophageal reflux disease (Chronic). Varicose veins of lower extremity (Acute). Dysfunctional uterine bleeding (Acute 02/07/02). Abnormal cervical Papanicolaou smear (Acute 07/03/12). Hydronephrosis, left (Chronic). Frequent UTI (Acute). Generalized weakness (Acute). Acute on chronic anemia (Acute). Radiation proctitis (Acute). 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 Acquired anal stenosis (Acute). Chronic back pain (Acute). Colovaginal fistula (Acute). 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 Palliative care patient (Acute). Physician orders for life-sustaining treatment (POLST) form indicates patient wish for [id number] status (Acute). DNR (do not resuscitate) (Acute). Bowel incontinence (Acute). Bladder incontinence (Acute). Bladder cancer (Chronic). f/u with dr. mcmillan. Hematuria (Acute). 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 Debility (Chronic). Cancer related pain (Chronic). Advanced directives, counseling/discussion (Chronic). Goals of care, counseling/discussion (Chronic). Acute kidney failure (Acute). Per pt. unilateral kidney. 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 Hypomagnesemia (Acute). Anemia (Acute). Mass of anus (Acute 11/08/17). 11/04/17. -Hyperplastic polyps of descending colon and rectum. Invasive keratinizing squamous cell carcinoma. -Tumor invading at least rectal mucosa and submucosa. [facility] [place]. Wolff. Increased BMI (Chron ic). Hypothyroidism (Chronic 07/07/12). H/O GRAVES. ophthalmopathy. Hyperlipidemia (Chronic). Essential hypertension (Chronic 01/02/13). Diabetes mellitus (Chronic 07/07/12). Medical History. Abnormal glandular Papanicolaou smear of cervix (04/10/02). Acute kidney injury superimposed on CKD. DVT prophylaxis. Female infertility. GERD (gastroesophageal reflux disease). Graves' disease. Hypertension. Hypokalemia. Hypotension determined by examination. Obesity (BMI 30-39.9). Rectal cancer. Sepsis. Shock circulatory. SVT (supraventricular tachycardia). Per pt. r/t to [facility]. Pt. states she has not had any issues with this for a long time. She states she see's her PCP to f/u. UTI (urinary tract infection). Varicose veins of both lower extremities. Surgical History. Cervical Procedure (~1989). CRYOTHERAPY. Cortical cataract of left eye. Cortical cataract of right eye. Endometrial Biopsy (~2002). History of bilateral ligation of fallopian tubes (02/01/14). History of gynecological procedure. History of tonsillectomy and adenoidectomy. Hx of cystoscopy. Hx of removal of cyst. right lower gluteus kurt. Ligation of fallopian tube. Nuclear sclerotic cataract of left eye. Nuclear sclerotic cataract of right eye. Posterior subcapsular age-related cataract of left eye. Posterior subcapsular age-related cataract, right eye PREVIOUS FUNCTIONAL STATUS/SOCIAL/FAMILY SUPPORTS:: Sherry lives in an apartment in [place] [facility] [place] with her son and his family, who help take care of her. She has a daughter, Nila, who lives in [place]. Her is now living at [facility]. 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 She uses a walker for ambulation, and receives help with her care from her son and daughter in law. CURRENT FUNCTIONAL STATUS:: Sherry was lying in bed when BROOKLYNN met with her. She stated that she recently returned from the OR, and was very tired. Per , she had a ureteral stent replacement today. Her renal function is being closely monitored. BROOKLYNN talked to SANDI Alonzo, who follows her closely at home. Clinton stated that Sherry has been doing well since her son and family have moved in, as they are very supportive. CM will continue to follow. ADVANCE DIRECTIVES:: On file, Nila (daughter) listed as agent. Has patient been provided with info about the portal/API?: Yes Did the patient sign up for the portal?: No CODE STATUS:: DNR/DNI INSURANCE COVERAGE / FINANCIAL ISSUES:: MCR/ for life CURRENT HOME/COMMUNITY SERVICES/EQUIPMENT:: Sherry uses a walker for ambulation, and has HH RN, OT, as well as family support and [facility]. PRIMARY CARE PHYSICIAN:: Diane Leblanc POTENTIAL DISCHARGE NEEDS:: Evaluations for further needs, follow up appointments PATIENT/FAMILY EDUCATION NEEDS:: Review discharge instructions regarding activity levels and medications, discussion of self care needs including ask me three. ANTICIPATED BARRIERS TO DISCHARGE:: None identified. TRANSPORTATION:: Via private vehicle by family. PLAN:: Anticipate Sherry will return home when medically cleared with a resumption of HH services. She will be driven home via private vehicle by her spouse. She will follow up with Urology, her PCP, and discharge plan of care. CM will continue to follow.
[2021-06-27] MEDS: cefTRIAXone 1 GM/50 ML BAG IVPB (17:43)
[2021-06-27] MEDS: Simvastatin 10 MG TAB PO (21:04)
[2021-06-27 22:59] VITALS: BP 111/60; PULSE 77; RESP 14; TEMP 36.3; O2SAT 93
[2021-06-28] VITALS (13 sets, daily range): BP systolic 101–122; BP diastolic 52–74; PULSE 65–80; RESP 16–22; TEMP 36.6–37.7; O2SAT 91–97
[2021-06-28] MEDS: MORPHine 4 MG/ML SYR IVP ×4 (02:13→21:32)
[2021-06-28] MEDS: Normal Saline 1,000 ML 100 ML IV ×2 (03:25→19:19)
[2021-06-28] MEDS: Pantoprazole 40 MG TABCR PO (06:31)
[2021-06-28] MEDS: Levothyroxine 125 MCG TAB PO (06:31)
[2021-06-28 06:55] LABS: Abs Immature Grans 0.15 10^3/uL (0.0-0.06); Absolute Basophil Count 0.02 10^3/uL (0.0-0.2); Absolute Eosinophil Count 0.04 10^3/uL (0.0-0.7); Absolute Lymphocyte Count 0.55 10^3/uL (1.2-3.4); Absolute Monocyte Count 0.53 10^3/uL (0.1-0.8); Absolute Neutrophil Count 5.05 10^3/uL (1.2-6.7); Basophils % 0.3; Eosinophils % 0.6; Immature Grans % 2.4; Lymphocytes % 8.7; MCHC 28.2 % (32.0-36.0); MCV 92.1 fL (80-95); MPV 8.2 fL (8.0-11.0); Monocytes % 8.4; Neutrophils % 79.6; Platelet Count 246 10^3/uL (130-400); RBC 2.27 10^6/uL (3.93-5.22); RDW 19.8 % (11.7-14.6); RDW-SD 65.5 fL; WBC 6.34 10^3/uL (4.4-10.8)
[2021-06-28 07:01] LABS: HCT 20.9 % (36.0-46.0); HGB 5.9 g/dL (11.2-15.7)
[2021-06-28 07:08] LABS: Anion Gap 11.1 mmol/L (3-11); BUN 44 mg/dL (7-18); CO2 18.9 mmol/L (21.0-32.0); Calcium 8.1 mg/dL (8.5-10.1); Chloride 106 mmol/L (98-107); Estimated GFR 12.61 (mL/min/1.73m2); Glucose 134 mg/dL (74-106); Potassium 4.6 mmol/L (3.5-5.1); Sodium 136 mmol/L (136-145)
[2021-06-28 07:10] LABS: CREATININE 3.6 mg/dL (0.55-1.02)
[2021-06-28 07:17] LABS: RBC Morphology Normal
[2021-06-28] MEDS: Gabapentin 300 MG CAP PO ×3 (07:55→20:42)
[2021-06-28] MEDS: Sertraline 100 MG TAB PO (07:55)
[2021-06-28] MEDS: Metoprolol CR 25 MG TABCR PO (07:56)
--- NOTE | 2021-06-28 07:56 | W.PM.PROGNOT ---
Date of Service Date of service: 06/28/21 Time of Service: 07:57 Assessment and Plan Assessment and plan (1) Acute UTI: Status: Acute Assessment and plan: urine culture is growing Proteus species; final sensitivity is pending. Patient is on Rocephin 1 gm daily and doing well w/ no fever or chills and urine is looking clearer since Dr. Ruiz exchanged her ureteral stent yesterday. (2) Hydronephrosis: Status: Acute Assessment and plan: patient has hx of hydronephrosis of her left kidney that is chronic d/t ureteral stenosis from prior radiation treatment for her rectal cancer. She had stent placed and is suppose to get this exchanged at least every 6 months. Right kidney is atrophic and probably nonfunctional. (3) KYLE (acute kidney injury): Status: Acute Assessment and plan: Unclear as to how long her creatinine has been elevated. her creatinine is slightly lower at 3.6 (down from 4.0 on admission); last creatinine on [facility] records is 1.6 back in 2021. If the acute rise is post obstructive then I would expect her creatinine to decrease (4) CKD (chronic kidney disease) stage 3, GFR 30-59 ml/min: Status: Acute (5) Acute on chronic anemia: Status: Acute Assessment and plan: worsening anemia today w/out evidence for acute bleeding. I suspect that a large part is dilutional in setting of chronic anemia. dc iv fluids and transfuse 2 units of PRBC today. (6) Acute right-sided low back pain with right-sided sciatica: Status: Acute Assessment and plan: patient was on tramadol at home but d/t her decr. eGFR she can not have the tramadol now. She is being treated w/ Tylenol and she has gabapentin at the maximal allowed dose for her renal function. Her sciatica is not new but seems to be worse this admission. Imaging of her LS spine did not reveal any pathologic fractures or spinal impingement although she has multilevel spinal canal stenosis and foraminal narrowing. She should be referred to pain management upon discharge for possible corticosteroid injections (7) Rectal pain, chronic: Status: Chronic Assessment and plan: related to her rectal cancer surgery and radiation treatment (8) Colostomy in place: Status: Chronic Assessment and plan: colostomy draining yellow brown liquid stool that was negative for occult blood. Subjective Subjective Interval history since last seen: Patient w/ cont. R. sided sciatic pain. Hb this morning is down to 5.9 gm from her admission 7.3 gm. No evidence of GI bleeding however, nursing is guaic her ostomy output. Exam Narrative Exam Narrative: Nursing staff is getting Sherry out of bed She is not dyspneic Lungs: clear Heart: regular, rate and rhythm Abdomen: soft, nontender, normal bowel sounds; ostomy w/ yellow/brown liquid output Objective Last Vital Signs Temp 36.3 C L 06/27/21 22:59 Pulse 77 06/27/21 22:59 Resp 14 06/27/21 22:59 BP 111/60 06/27/21 22:59 Pulse Ox 93 06/27/21 22:59 Laboratory Results - last 24 hr 06/28/21 06/28/21 06/28/21 06:40 06:40 07:38 WBC 6.34 RBC 2.27 L Hgb 5.9 L* Hct 20.9 L* MCV 92.1 MCH 26.0 L MCHC 28.2 L RDW 19.8 H Plt Count 246 MPV 8.2 Immature Gran % 2.4 Neutrophils % 79.6 Lymphocytes % 8.7 Monocytes % 8.4 Eosinophils % 0.6 Basophils % 0.3 Nucleated RBC % 0.0 Absolute Neutrophils 5.05 Absolute Lymphocytes 0.55 L Absolute Monocytes 0.53 Absolute Eosinophils 0.04 Absolute Basophils 0.02 RBC Morphology Normal Sodium 136 Potassium 4.6 Chloride 106 Carbon Dioxide 18.9 L Anion Gap 11.1 H BUN 44 H Creatinine 3.6 H* Estimated GFR/1.73 m2 12.61 Glucose 134 H Calcium 8.1 L Crossmatch See Detail Reviewed Pertinent PMH: Yes
[2021-06-28] MEDS: Acetaminophen 325 MG TAB 650 MG PO (09:33)
[2021-06-28] MEDS: diphenhydrAMINE 25 MG CAP PO (09:33)
--- NOTE | 2021-06-28 14:21 | NUR.NOTE ---
Nursing Note: Pedi collection device was applied to the rear fistula as there was a purulent appearing fluid that was draining at a light to occasionally moderate flow and was gathering on the chirag underneath the patient
--- NOTE | 2021-06-28 16:13 | CHAPLAIN ---
Sherry's daughter was with her when I visited. Sherry is a member of the [facility] but she and her daughter declined my offer to let the gnosticist know she is here. Her daughter said she hasn't been able to attend in quite a while. I introduced myself to Sherry, explained my role and offered support.
[2021-06-28] MEDS: cefTRIAXone 1 GM/50 ML BAG IVPB (17:52)
--- NOTE | 2021-06-28 18:48 | PDOC.CMPRO ---
- If Service Date Differs Date of service: 06/28/21 Time of Service: 18:48 Care Management Progress Note S/O: Sherry was resting when CM attempted to meet with her. Per MD, she is receiving two units of blood today after her Hgb reduced from 7.3 to 5.9. Per RN, she was medicated prior to her transfusion, which made her sleepy. CM spoke to Clinton from [facility], who stated that she is well supported in the community. Sherry will return home with a resumption of services when medically cleared. CM will continue to follow. A: Shrery is a 65 year old female admitted to [facility] on 06/26/21 with sciatica, UTI, KYLE. P: Anticipate Sherry will return home when medically cleared with a resumption of services. She will be driven home via private vehicle by her spouse. She will follow up with Urology, her PCP, and discharge plan of care. CM will continue to follow.
[2021-06-28 20:19] LABS: HCT 26.2 % (36.0-46.0); HGB 7.8 g/dL (11.2-15.7)
[2021-06-28] MEDS: Furosemide 20 MG/2 ML VIAL IVP (20:42)
[2021-06-28] MEDS: Sodium Bicarbonate 650 MG TAB PO (20:42)
[2021-06-28] MEDS: Simvastatin 10 MG TAB PO (21:32)
[2021-06-29] MEDS: Levothyroxine 125 MCG TAB PO (06:26)
[2021-06-29] MEDS: Pantoprazole 40 MG TABCR PO (06:26)
[2021-06-29 06:37] LABS: Abs Immature Grans 0.25 10^3/uL (0.0-0.06); Absolute Basophil Count 0.04 10^3/uL (0.0-0.2); Absolute Eosinophil Count 0.08 10^3/uL (0.0-0.7); Absolute Lymphocyte Count 0.72 10^3/uL (1.2-3.4); Absolute Monocyte Count 0.52 10^3/uL (0.1-0.8); Absolute Neutrophil Count 5.49 10^3/uL (1.2-6.7); Basophils % 0.6; Eosinophils % 1.1; HCT 27.6 % (36.0-46.0); HGB 8.2 g/dL (11.2-15.7); Immature Grans % 3.5; Lymphocytes % 10.1; MCH 26.7 pg (27.0-33.0); MCHC 29.7 % (32.0-36.0); MCV 89.9 fL (80-95); MPV 8.6 fL (8.0-11.0); Monocytes % 7.3; Neutrophils % 77.4; Platelet Count 287 10^3/uL (130-400); RBC 3.07 10^6/uL (3.93-5.22); RDW 18.5 % (11.7-14.6); RDW-SD 60.8 fL
[2021-06-29 07:10] LABS: Anion Gap 11.5 mmol/L (3-11); BUN 45 mg/dL (7-18); CO2 20.5 mmol/L (21.0-32.0); Calcium 8.7 mg/dL (8.5-10.1); Chloride 104 mmol/L (98-107); Estimated GFR 12.22 (mL/min/1.73m2); Glucose 179 mg/dL (74-106); Potassium 4.3 mmol/L (3.5-5.1); Sodium 136 mmol/L (136-145)
[2021-06-29 07:12] LABS: CREATININE 3.7 mg/dL (0.55-1.02)
[2021-06-29 07:27] VITALS: BP 112/72; PULSE 72; RESP 15; TEMP 36.5; O2SAT 92
[2021-06-29] MEDS: Gabapentin 300 MG CAP PO ×3 (08:51→21:03)
[2021-06-29] MEDS: Metoprolol CR 25 MG TABCR PO (08:51)
[2021-06-29] MEDS: Sertraline 100 MG TAB PO (08:51)
[2021-06-29] MEDS: Sodium Bicarbonate 650 MG TAB PO ×3 (08:51→21:03)
[2021-06-29] MEDS: MORPHine 4 MG/ML SYR IVP (08:52)
[2021-06-29] MEDS: Normal Saline Flush 10 ML SYR ×3 (09:05→17:40)
--- NOTE | 2021-06-29 10:25 | PDOC.CMPRO ---
- If Service Date Differs Date of service: 06/29/21 Time of Service: 10:26 Care Management Progress Note S/O: Sherry was lying in bed when CM met with her. She stated that she is tired and in pain today. Per report, her creatinine is not improving. She met with Palliative care to discuss her goals of care, including whether she would be agreeable to dialysis. She made the decision to return home on Hospice. CM coordinated a visit for tomorrow at noon with Adalberto, Hospice and Sherry's son, Morgan, to discuss equipment needs and her discharge plan. CM will continue to follow. A: Sherry is a 65 year old female admitted to [facility] [place] on 06/26/21 with sciatica, UTI, KYLE. P: Anticipate Sherry will return home when medically cleared with a resumption of services. She will be driven home via private vehicle by her spouse. She will follow up with Urology, her PCP, and discharge plan of care. CM will continue to follow.
--- NOTE | 2021-06-29 14:07 | W.PALLCONSUL ---
Date of service: 06/29/21 Time of Service: 12:00 History of Present Illness Narrative: Ms. Powell is a 65 y/o F currently inpatient at [facility] ; PALC dx of urothelial cell carcinoma; PMHx sig of CKD w/hydronephrosis of L kidney, R kidney nonfunctional, DM, HTN; Hospital Course: presented to [facility] ED on 06/26/21 w/KYLE (Cr 4.0) w/L hydronephrosis and R sciatica pain; admitted inpatient 2/ KYLE, urology consulted, stent replaced 06/27, Cr w/limited improvement; Palc consult placed to review C Pt reports would not want further work-up don?t on renal function, adamant to have no dialysis; pt preference to get her ?as good as can now? 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, is very clear about her decision to be home for the rest of her life, remain comfortable; pt?s two children (Nila and Angel) and daughter IL (Birgit) already provide care for her at home, living w/her; granddaughter Cyrus also lives in home, pt would like granddaughter to be a part of this phase of her life as possible COLST and HCA already on file goal of being able to walk to bathroom and get out of bed; Assessment and Plan Assessment and plan (1) CKD (chronic kidney disease) stage 3, GFR 30-59 ml/min: Status: Acute Assessment and plan: Cr 4.0 on admission, 3.7 today BUN 49 on admission, 45 today eGFR 11.17 on admission, 12.22 today (2) Hydronephrosis, left: Status: Chronic Assessment and plan: stent replaced 06/27/21 (3) Physician orders for life-sustaining treatment (POLST) form indicates patient wish for [id number] status: Status: Acute Assessment and plan: COLST previously completed, remains DNR/I; pt request no major interventions, would like to go under hospice care and go INSTRUMENT [employer]KER [employer]PRENTICE (4) Encounter for hospice care discussion: Status: Acute Assessment and plan: PT consult recommended to help pt achieve goals of walking to bathroom and get out of bed Hospice consult and family meeting scheduled for Saturday at 12p Review of Systems Constitutional Constitutional: Reports as per [facility] PFSH All Active Problems (Updated 06/29/21 @ 14:11 by Italai Navarro NP) Encounter for hospice care discussion (Acute) KYLE (acute kidney injury) (Acute) Acute UTI (Acute) Acute right-sided low back pain with right-sided sciatica (Acute) Hydronephrosis (Acute) Radiating back pain (Acute) Anxiety (Chronic) Fatigue (Acute) Need for home health care (Acute) Nausea (Acute) Colostomy in place (Chronic) 03/29/21 [facility] [place]- laproscopic transverse loop colostomy CKD (chronic kidney disease) stage 3, GFR 30-59 ml/min (Acute) Rectal pain, chronic (Chronic) Secondary to rectal cancer surgery & drains/leakage Gastroesophageal reflux disease (Chronic) Varicose veins of lower extremity (Acute) Dysfunctional uterine bleeding (Acute 02/07/02) Abnormal cervical Papanicolaou smear (Acute 07/03/12) Hydronephrosis, left (Chronic) Frequent UTI (Acute) Generalized weakness (Acute) Acute on chronic anemia (Acute) 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 unilateral kidney. 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 Hypomagnesemia (Acute) Anemia (Acute) Mass of anus (Acute 11/08/17) 11/04/17 -Hyperplastic polyps of descending colon and rectum Invasive keratinizing squamous cell carcinoma -Tumor invading at least rectal mucosa and submucosa [facility] referral initiated by Dr. Wolff Increased BMI (Chronic) Hypothyroidism (Chronic 07/07/12) H/O GRAVES ophthalmopathy Hyperlipidemia (Chronic) Essential hypertension (Chronic 01/02/13) Diabetes mellitus (Chronic 07/07/12) Medical History Abnormal glandular Papanicolaou smear of cervix (04/10/02) Acute kidney injury superimposed on CKD DVT prophylaxis Female infertility GERD (gastroesophageal reflux disease) Graves' disease Hypertension Hypokalemia Hypotension determined by examination Obesity (BMI 30-39.9) Rectal cancer Sepsis Shock circulatory SVT (supraventricular tachycardia) Per pt. r/t to graves disease. Pt. states she has not had any issues with this for a long time. She states she see's her PCP to f/u UTI (urinary tract infection) Varicose veins of both lower extremities Surgical History Cervical Procedure (~1989) CRYOTHERAPY Cortical cataract of left eye Cortical cataract of right eye Endometrial Biopsy (~2002) History of bilateral ligation of fallopian tubes (02/01/14) History of gynecological procedure History of tonsillectomy and adenoidectomy Hx of cystoscopy Hx of removal of cyst right lower gluteus kurt Ligation of fallopian tube Nuclear sclerotic cataract of left eye Nuclear sclerotic cataract of right eye Posterior subcapsular age-related cataract of left eye Posterior subcapsular age-related cataract, right eye Family History Mother , of cirrhosis at age 68, likely from lifelong obesity Diabetes Essential hypertension Depression Heart disease Hyperlipidemia Stroke Liver cancer Father , dad aged 55 from AMI Heart disease Myocardial infarction Sister Hyperlipidemia Asthma Grandfather Neoplasm LUNG Grandmother Stroke Son Diabetes Asthma Daughter Anxiety Heart disease BORN WITH ENLARGED HEART Depression Bipolar Social History Smoking/Tobacco Use Status: Current every day Tobacco Type: cigarettes Tobacco: How many years used: 50 Quit status: not considering quitting Counseling given: counseling >3 minutes Smoking risk assessment performed?: Yes Alcohol Intake: never Drug use: Never Substance use type: does not use Counseling given: No Counseling provided: none Caregiver/Support person: No Household members: spouse and none Housing: apartment Do you need help understanding health information?: Rarely 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: [employer] - 12/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 medical leave Pets and animals: No Sexually active: No Do you think of yourself as: straight/heterosexual Current gender identity: decline to answer What is your relationship status?: How often do you talk on the phone with friends or family?: three or more times per week How often do you get together with friends or relatives?: decline to answer How often do you attend adventism or episcopal services?: decline to answer Do you belong to any clubs or organized social groups?: decline to answer Panel score (0-1 are the most socially isolated patients): 2 What type of physical activity do you participate in: none Duration: decline to answer Frequency: decline to answer Miranda/Episcopal: Pentecostalism Special miranda needs: No Seatbelt use: always Helmet use: No Drive intox or ride w/intox 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 directory distributor driver: No Do you feel safe at home: Yes Additional Social history: lives alone, son recently moved in Exam Narrative Exam Narrative: pt laying comfortably in bed throughout exam, eating lunch appropriately Const General: cooperative and no acute distress Orientation: alert, awake and oriented x3 HENMT Head: atraumatic Ears: hearing grossly normal bilaterally Resp Effort & Inspection: normal respiratory effort, able to speak in complete sentences, no audible wheezes and no cough Neuro General: patient alert, patient awake and patient oriented x3 Psych Appearance: grossly normal Mental Status: mental status grossly normal Speech and Movement: speech clear Insight: insight good Judgment: judgment good Results Last Vital Signs Temp 97.7 F 06/29/21 07:27 Pulse 72 06/29/21 07:27 Resp 15 06/29/21 07:27 BP 112/72 06/29/21 07:27 Pulse Ox 92 06/29/21 07:27 Labs Result diagrams: 06/29/21 06:15 06/29/21 06:15 Labs: Laboratory Results - last 24 hr 06/28/21 06/28/21 06/29/21 08:12 20:09 06:15 WBC RBC Hgb 7.8 L Hct 26.2 L D MCV MCH MCHC RDW Plt Count MPV Immature Gran % Neutrophils % Lymphocytes % Monocytes % Eosinophils % Basophils % Nucleated RBC % Absolute Neutrophils Absolute Lymphocytes Absolute Monocytes Absolute Eosinophils Absolute Basophils Sodium 136 Potassium 4.3 Chloride 104 Carbon Dioxide 20.5 L Anion Gap 11.5 H BUN 45 H Creatinine 3.7 H* Estimated GFR/1.73 m2 12.22 Glucose 179 H Calcium 8.7 Crossmatch See Detail 06/29/21 06:15 WBC 7.10 RBC 3.07 L Hgb 8.2 L Hct 27.6 L MCV 89.9 MCH 26.7 L MCHC 29.7 L RDW 18.5 H Plt Count 287 MPV 8.6 Immature Gran % 3.5 Neutrophils % 77.4 Lymphocytes % 10.1 Monocytes % 7.3 Eosinophils % 1.1 Basophils % 0.6 Nucleated RBC % 0.0 Absolute Neutrophils 5.49 Absolute Lymphocytes 0.72 L Absolute Monocytes 0.52 Absolute Eosinophils 0.08 Absolute Basophils 0.04 Sodium Potassium Chloride Carbon Dioxide Anion Gap BUN Creatinine Estimated GFR/1.73 m2 Glucose Calcium Crossmatch
[2021-06-29 14:40] VITALS: BP 105/58; PULSE 71; RESP 18; TEMP 36.8; O2SAT 95
[2021-06-29] MEDS: cefTRIAXone 1 GM/50 ML BAG IVPB (17:33)
--- NOTE | 2021-06-29 17:49 | W.PM.PROGNOT ---
Date of Service Date of service: 06/29/21 Time of Service: 17:49 Assessment and Plan Assessment and plan (1) Encounter for hospice care discussion: Start date: 06/29/21 Start time: 18:03 Status: Acute Assessment and plan: Patient met with palliative care today and decided that she wanted no further treatment. She would like to go hospice. She is meeting with hospice tomorrow and will go home once the hospital bed has arrived. (2) Acute UTI: Start date: 06/29/21 Start time: 17:53 Status: Acute Assessment and plan: Urine cx pansensitive. Will change to oral antibiotics for comfort as patient wishes for no further treatment she wants to on hospice. Will treat with augmentin bid x 3 more day for a total of 5 days (3) Hydronephrosis: Start date: 06/29/21 Start time: 17:56 Status: Acute Assessment and plan: d/t patient going on hospice will not need follow up with this (4) KYLE (acute kidney injury): Start date: 06/29/21 Start time: 18:01 Status: Acute Assessment and plan: does not want any further treatment, as above (5) CKD (chronic kidney disease) stage 3, GFR 30-59 ml/min: Start date: 06/29/21 Start time: 18:02 Status: Acute Assessment and plan: as above (6) Acute on chronic anemia: Start date: 06/29/21 Start time: 18:02 Status: Acute Assessment and plan: as above. will stop checking labs as she does not wish for any further treatment. (7) Acute right-sided low back pain with right-sided sciatica: Start date: 06/29/21 Start time: 18:02 Status: Acute Assessment and plan: treat with pain management (8) Rectal pain, chronic: Start date: 06/29/21 Start time: 18:03 Status: Chronic Assessment and plan: related to her rectal cancer surgery and radiation treatment pain managment, will defer to hospice (9) Colostomy in place: Start date: 06/29/21 Start time: 18:03 Status: Chronic Assessment and plan: colostomy draining yellow brown liquid stool that was negative for occult blood. discussed with Dr Cunningham Subjective Subjective Patient reports: other Interval history since last seen: Patient lying in bed. Spoke with palliative today. She has decided she no longer wants any type of treatment. She wants to go on hopsice. She is going on hospice, meeting with the team tomorrow, and will be discharged when the hospital bed is delivered. She appears tired, frail and chronically ill. Likely she will be discharged no longer than the weekend, for now no further treatment. Exam Narrative Exam Narrative: pt laying comfortably in bed appears tired Const General: cooperative, no acute distress, frail appearing and ill appearing chronically Orientation: alert, awake and oriented x3 HENMT Head: atraumatic Ears: hearing grossly normal bilaterally Neck Neck: full ROM and no lymphadenopathy Chest Chest: normal inspection of the chest Resp Effort & Inspection: normal respiratory effort, able to speak in complete sentences, no audible wheezes and no cough Auscultation: clear to auscultation bilaterally Cardio Jugular venous pressure: no JVD Rate: regular rate Rhythm: regular rhythm GI Inspection: normal to inspection Auscultation: normal bowel sounds Skin General skin exam: no rashes or lesions noted Neuro General: patient alert, patient awake and patient oriented x3 Extrem General: normal to inspection Psych Appearance: grossly normal Mental Status: mental status grossly normal Speech and Movement: speech clear Insight: insight good Judgment: judgment good Objective Last Vital Signs Temp 36.8 C 06/29/21 14:40 Pulse 71 06/29/21 14:40 Resp 18 06/29/21 14:40 BP 105/58 L 06/29/21 14:40 Pulse Ox 95 06/29/21 14:40 Laboratory Results - last 24 hr 06/28/21 06/29/21 06/29/21 20:09 06:15 06:15 WBC 7.10 RBC 3.07 L Hgb 7.8 L 8.2 L Hct 26.2 L D 27.6 L MCV 89.9 MCH 26.7 L MCHC 29.7 L RDW 18.5 H Plt Count 287 MPV 8.6 Immature Gran % 3.5 Neutrophils % 77.4 Lymphocytes % 10.1 Monocytes % 7.3 Eosinophils % 1.1 Basophils % 0.6 Nucleated RBC % 0.0 Absolute Neutrophils 5.49 Absolute Lymphocytes 0.72 L Absolute Monocytes 0.52 Absolute Eosinophils 0.08 Absolute Basophils 0.04 Sodium 136 Potassium 4.3 Chloride 104 Carbon Dioxide 20.5 L Anion Gap 11.5 H BUN 45 H Creatinine 3.7 H* Estimated GFR/1.73 m2 12.22 Glucose 179 H Calcium 8.7
[2021-06-29] MEDS: Simvastatin 10 MG TAB PO (21:03)
[2021-06-29] MEDS: Amoxicillin 500/Clav. 125 TAB PO (21:03)
[2021-06-29 23:24] VITALS: BP 119/71; PULSE 75; RESP 16; TEMP 36.7; O2SAT 91
[2021-06-30] MEDS: MORPHine 4 MG/ML SYR IVP (04:47)
[2021-06-30] MEDS: Ondansetron 4 MG/2 ML VIAL IVP (06:32)
[2021-06-30] MEDS: Levothyroxine 125 MCG TAB PO (06:33)
[2021-06-30 07:51] VITALS: BP 105/67; PULSE 81; RESP 17; TEMP 36.4; O2SAT 91
[2021-06-30] MEDS: Gabapentin 300 MG CAP PO ×3 (09:14→21:01)
[2021-06-30] MEDS: Sodium Bicarbonate 650 MG TAB PO ×3 (09:14→21:01)
[2021-06-30] MEDS: Amoxicillin 500/Clav. 125 TAB PO ×2 (09:15→21:01)
[2021-06-30] MEDS: Pantoprazole 40 MG TABCR PO (09:15)
[2021-06-30] MEDS: Metoprolol CR 25 MG TABCR PO (09:15)
[2021-06-30] MEDS: Sertraline 100 MG TAB PO (09:15)
--- NOTE | 2021-06-30 10:02 | PDOC.CMPRO ---
- If Service Date Differs Date of service: 06/30/21 Time of Service: 10:02 Care Management Progress Note S/O: Sherry was lying in bed when CM met with her. She stated that she is feeling nauseas today and is still in pain. She met with Adalberto, Hospice, today with her daughter, son and grand daughter. They discussed expectations for Hospice, as well as equipment needs. She is having equipment delivered this afternoon or tomorrow morning, and then she will return home. She will transport via [facility] at 1pm, as long as the bed is set up in the home before that time. Morgan, ([phone]) will call if the bed has not been delivered. She will be admitted to Hospice on Saturday, unless she requires assistance on Saturday, which they will go meet her for at home. During the meeting she stated that she is very tired and no longer wants to be in pain. Her family was very understanding, and is supportive of her and her wishes. CM will continue to follow. A: Sherry is a 65 year old female admitted to [facility] on 06/26/21 with sciatica, UTI, KYLE. P: Anticipate Sherry will return home with support from Hospice, once equipment is delivered. She will be transported home via [facility] at 1pm on Saturday, coordinated by BR[facility]NN. CM will continue to support Sherry and her family with discharge planning considerations.
--- NOTE | 2021-06-30 10:52 | NT_ITS ---
Date of service: 06/30/21 Time of Service: 10:52 PT Notes Visit Reasons: Sciatica, UTI, KYLE Patient politely declines any physical activity stating that she wants to take it easy for the next two days and if she is still here on Saturday, she is willing to try out moving. 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 She goes home (date unkown at this time) under hospice care. manager market intelligence and hospitalist made aware of patient's decisions. TREATMENT CODE/TIME: :52-11:04 AM. No charge. Thank you for the opportunity to participate in the care of this patient. Dea Tan PT, DPT, CLT [facility] [place], [place]
--- NOTE | 2021-06-30 12:28 | W.PM.PROGNOT ---
Date of Service Date of service: 06/30/21 Time of Service: 08:30 Assessment and Plan Assessment and plan (1) Encounter for hospice care discussion: Start date: 06/30/21 Start time: 08:30 Status: Acute Assessment and plan: Meeting with hospice today. Patient is going home on hospice when the hospital bed available (2) Acute UTI: Start date: 06/30/21 Start time: 08:30 Status: Acute Assessment and plan: Urine cx pansensitive. On oral antibiotics for comfort as patient wishes for no further treatment she wants to go on hospice. treat with augmentin bid x 2 more day for a total of 5 days (3) Hydronephrosis: Start date: 06/30/21 Start time: 08:30 Status: Acute Assessment and plan: d/t patient going on hospice will not need follow up with this (4) KYLE (acute kidney injury): Start date: 06/30/21 Start time: 08:30 Status: Acute Assessment and plan: does not want any further treatment, as above (5) CKD (chronic kidney disease) stage 3, GFR 30-59 ml/min: Start date: 06/30/21 Start time: 08:30 Status: Acute Assessment and plan: as above (6) Acute on chronic anemia: Start date: 06/30/21 Start time: 08:30 Status: Acute Assessment and plan: as above no further treatment (7) Acute right-sided low back pain with right-sided sciatica: Start date: 06/30/21 Start time: 08:30 Status: Acute Assessment and plan: treat with pain management (8) Rectal pain, chronic: Start date: 06/30/21 Start time: 08:30 Status: Chronic Assessment and plan: related to her rectal cancer surgery and radiation treatment pain managment, will defer to hospice (9) Colostomy in place: Start date: 06/30/21 Start time: 08:30 Status: Chronic Assessment and plan: colostomy draining yellow brown liquid stool that was negative for occult blood. discussed with Dr Cunningham Subjective Subjective Patient reports: nausea and vomiting Interval history since last seen: Patient states vomiting this am. She believes maybe from pain medication. She is going on hospice, meeting today. She will be discharged home when hospital bed available. Changed pain med to roxicodone and added tigan and compazine for nausea. She appears tired and states she is tired as well. Exam Narrative Exam Narrative: pt laying comfortably in bed appears tired Const General: cooperative, no acute distress, frail appearing and ill appearing chronically Orientation: alert, awake and oriented x3 HENMT Head: atraumatic Ears: hearing grossly normal bilaterally Neck Neck: full ROM and no lymphadenopathy Chest Chest: normal inspection of the chest Resp Effort & Inspection: normal respiratory effort, able to speak in complete sentences, no audible wheezes and no cough Auscultation: clear to auscultation bilaterally Cardio Jugular venous pressure: no JVD Rate: regular rate Rhythm: regular rhythm GI Inspection: normal to inspection Auscultation: normal bowel sounds Skin General skin exam: no rashes or lesions noted Neuro General: patient alert, patient awake and patient oriented x3 Extrem General: normal to inspection Psych Appearance: grossly normal Mental Status: mental status grossly normal Speech and Movement: speech clear Insight: insight good Judgment: judgment good Objective Last Vital Signs Temp 36.4 C L 06/30/21 07:51 Pulse 81 06/30/21 07:51 Resp 17 06/30/21 07:51 BP 105/67 06/30/21 07:51 Pulse Ox 91 L 06/30/21 07:51
[2021-06-30] MEDS: Simvastatin 10 MG TAB PO (21:01)
[2021-06-30] MEDS: traMADol 50 MG TAB PO (22:53)
[2021-06-30 23:05] VITALS: BP 102/47; PULSE 77; RESP 18; TEMP 37; O2SAT 91
--- NOTE | 2021-07-01 04:35 | NUR.NOTE ---
Nursing Note: Patient request all four bedrails up, she states that she feels safer in bed when the are up. patient is able to ring as needed for assistance.
[2021-07-01] MEDS: Levothyroxine 125 MCG TAB PO (06:34)
[2021-07-01 07:35] VITALS: BP 97/60; PULSE 75; RESP 18; TEMP 37.2; O2SAT 90
[2021-07-01] MEDS: Amoxicillin 500/Clav. 125 TAB PO (10:22)
[2021-07-01] MEDS: Gabapentin 300 MG CAP PO (10:22)
[2021-07-01] MEDS: Pantoprazole 40 MG TABCR PO (10:22)
[2021-07-01] MEDS: Sodium Bicarbonate 650 MG TAB PO (10:22)
[2021-07-01] MEDS: Sertraline 100 MG TAB PO (10:22)
--- NOTE | 2021-07-01 12:11 | W.PM.DS.N ---
Date of service: 07/01/21 Time of Service: 12:11 DS: Diagnosis Discharge Diagnosis (1) Acute UTI: Status: Acute Asessment and Plan: proteus miralilis sensitive to amoxicillin. (2) Hydronephrosis: Status: Acute (3) KYLE (acute kidney injury): Status: Acute (4) CKD (chronic kidney disease) stage 3, GFR 30-59 ml/min: Status: Acute (5) Acute on chronic anemia: Status: Acute (6) Acute right-sided low back pain with right-sided sciatica: Status: Acute (7) Rectal pain, chronic: Status: Chronic (8) Colostomy in place: Status: Chronic Discharge Plan Disposition Patient Disposition: HOME W/HOME HEALTH SERVICE Condition: Serious Discharge Details Reason For Visit: Sciatica, UTI, KYLE Admit Date/Time: 06/26/21 19:29 Admit Provider: James Potter Attending Provider: James Potter Primary Care Provider: Diane Leblanc Hospital Course Hospital Course: This is 65 female with history of both anal and bladder cancer, atrophic right kidney and chronic left 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 Also has history of right sided sciatica and multiple UTIs. She presented to the ED with one week of dysuria and frequency, as well as 4 days of right sided low back pain radiating to posterior right thigh, similar to prior episodes of sciatica. In ED noted for absence of fever, creatinine of 4.0 (baseline 1.9), BUN 49, gross pyuria (>50 WBC/hpf) and CT showing worsening left hydro, with distended bladder (PVR approx 375 per ER). Additionally CT demonstrates multilevel lumbar stenosis and foraminal narrowing -- on right worse at L5-S1 (also, stable appearance of known chronic perianal abcess). Urology consulted and requests Dias (which patient declines) and plan for stent replacement in AM. She was started on Rocephin and admitted to the hospitalist service for further management. On June 27, 2021 she underwent cystoscopy, with exchange of left ureteral stent by Dr Mcmillan. Her urine cultures grew proteus miribilis which was sensitive to amoxicillin so she was downstepped to oral antibiotcs. plan is to complete a 5 day course. She was consulted to see palliative so she could discuss goals of care and opted to be discharged to home on hospice. She is being discharged to home by ambulance for hospice admission planned for Friday July 02, 2021. Care management has been following for discharge planning., discharge discussed with Dr Cunningham. Home Meds and New Rx's Prescriptions: New amoxicillin-pot clavulanate 500-125 mg Tablet 1 tab PO BID Qty: 3 0RF Continued acetaminophen 500 mg tablet 500 - 1,000 mg PO TID 0RF metoprolol succinate 25 mg tablet extended release 24 hr 25 mg PO DAILY Qty: 90 4RF meclizine 12.5 mg tablet 12.5 mg PO TID PRN0RF calcium carbonate 500 MG tablet 1 tab.chew PO BID 0RF Rx Instructions: TUMS 500 STRENGTH CHEWABLE (DME) blood-glucose meter 1 EACH misc 1 ea Miscellaneous DAILY Qty: 1 0RF Rx Instructions: METER TYPE FREESTYLE LITE DIAGNOSIS CODE 250.02 Emergen-C 1,000 MG powder effervescent in packet 1 packet PO DAILY 0RF fluocinolone [Synalar] 120 GM ointment 1 applic Topical BID Qty: 1 2RF Rx Instructions: 15 GM OINTMENT (DME) Blood Glucose Test Strip 1 ea Miscellaneous BID Qty: 300 4RF Rx Instructions: FOR FREESTYLE METER. PT DOES NOT USE INSULIN. DIAGNOSIS CODE 250.02 E11.9 Dx (DME) lancets 28 gauge misc 1 ea Miscellaneous BID Qty: 300 4RF Rx Instructions: FOR FREESTYLE METER. NO INSULIN. DIAGNOSIS CODE 250.02 E11.9 Dx simvastatin [Zocor] 10 mg tablet 10 mg PO HS Qty: 90 4RF levothyroxine 125 mcg tablet 125 mcg PO DAILY Qty: 90 4RF pantoprazole 40 mg tablet,delayed release (DR/EC) 40 mg PO DAILY@0730 Qty: 90 4RF sertraline 100 mg tablet 100 mg PO DAILY Qty: 90 3RF Rx Instructions: DOSE INCREASE TO 100mg daily glipizide 2.5 mg tablet extended release 24 hr 2.5 mg PO DAILY Qty: 60 0RF Rx Instructions: Take 1 tab in AM and 1 tab at HS morphine concentrate 100 mg/5 mL (20 mg/mL) solution See Rx Instructions PO Q1H PRN MDD 240 mg Qty: 30 0RF Rx Instructions: 0.25-1.0 ml PO every 1 hour, as needed; HOSPICE lorazepam 1 mg tablet 1 mg PO Q4H PRN PRN (Reason: anxiety) Qty: 10 3RF Rx Instructions: HOSPICE tramadol 50 mg tablet 50 mg PO TID MDD 150mg PRN (Reason: pain) Qty: 90 2RF Discharge Instructions Instructions: Urinary Tract Infection in Women (DC) Stand Alone Forms: Nursing Discharge Form Referrals: Diane Leblanc NP [Primary Care Provider] - (please call to follow up 1-2 weeks ) Activity:: Activity as Tolerated Equipment/Supplies:: hospice equipment Diet:: As Tolerated Discharge Orders Discharge Orders: Discharge Order (Routine); Ordered 07/01/21 Ordered By: Prema Love Discharge Data Discharge Date/Time-TO BE ENTERED AT DEPARTURE: 07/01/21 14:07 DS: Summary Time Spent with Patient providing and/or coordinating discharge services: Greater than 30 minutes Status at Discharge Functional status at discharge: uses cane/walker Overall status at discharge: patient is not back to baseline Mental Status: mental status grossly normal Speech and Movement: speech clear Mood: congruent mood Affect: normal affect Exam Const General: cooperative, no acute distress, frail appearing and ill appearing chronically Orientation: alert, awake and oriented x3 HENMT Head: atraumatic Ears: hearing grossly normal bilaterally Neck Neck: full ROM Chest Chest: normal inspection of the chest Resp Effort & Inspection: normal respiratory effort and able to speak in complete sentences Auscultation: clear to auscultation bilaterally Cardio Rate: regular rate Rhythm: regular rhythm GI Inspection: normal to inspection Auscultation: normal bowel sounds Skin General skin exam: no rashes or lesions noted Neuro General: patient alert, patient awake and patient oriented x3 Extrem General: normal to inspection Psych Appearance: grossly normal Mental Status: mental status grossly normal Speech and Movement: speech clear Mood: congruent mood Affect: normal affect Insight: insight good Judgment: judgment good DS: Data Vitals/I&O Vitals and I&O: Vital Signs Temperature 37.2 C 07/01/21 07:35 Temperature Source Tympanic 07/01/21 07:35 Pulse 75 07/01/21 07:35 Pulse Rhythm Regular 07/01/21 02:00 Respiratory Rate 18 07/01/21 07:35 Respiratory Effort Non-Labored 07/01/21 02:00 Respiratory Depth Normal 07/01/21 02:00 Respiratory Pattern Normal 07/01/21 02:00 Blood Pressure 97/60 L 07/01/21 07:35 Pulse Oximetry 90 L 07/01/21 07:35 Oxygen Delivery Method Room Air 07/01/21 07:35 Oxygen Flow Rate 0 07/01/21 07:35 Pain Level 8 06/30/21 22:53 Intake & Output 06/30/21 07/01/21 07/01/21 23:59 11:59 23:59 Intake Total 500 / 1090 290 / 290 Output Total 1700 / 2350 300 / 300 Balance -1200 / -1260 -10 / -10 Intake: IV 50 / 50 Oral 500 / 1090 240 / 240 Output: Urine 1200 / 1850 Stool 500 / 500 300 / 300 Other: Urine Color Pale Urine Appearance Clear Clear Comment Little output at this time PFSH All Active Problems (Updated 06/29/21 @ 14:11 by Italia Navarro NP) Encounter for hospice care discussion (Acute) KYLE (acute kidney injury) (Acute) Acute UTI (Acute) Acute right-sided low back pain with right-sided sciatica (Acute) Hydronephrosis (Acute) Radiating back pain (Acute) Anxiety (Chronic) Fatigue (Acute) Need for home health care (Acute) Nausea (Acute) Colostomy in place (Chronic) 03/29/21 [facility] [place] lap[place] transverse [place] colostomy CKD (chronic kidney disease) stage 3, GFR 30-59 ml/min (Acute) Rectal pain, chronic (Chronic) Secondary to rectal cancer surgery & drains/leakage Gastroesophageal reflux disease (Chronic) Varicose veins of lower extremity (Acute) Dysfunctional uterine bleeding (Acute 02/07/02) Abnormal cervical Papanicolaou smear (Acute 07/03/12) Hydronephrosis, left (Chronic) Frequent UTI (Acute) Generalized weakness (Acute) Acute on chronic anemia (Acute) 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 unilateral kidney. 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 Hypomagnesemia (Acute) Anemia (Acute) Mass of anus (Acute 11/08/17) 11/04/17 -Hyperplastic polyps of descending colon and rectum Invasive keratinizing squamous cell carcinoma -Tumor invading at least rectal mucosa and submucosa [facility] [place] by Dr. Wolff Increased BMI (Chronic) Hypothyroidism (Chronic 07/07/12) H/O GRAVES ophthalmopathy Hyperlipidemia (Chronic) Essential hypertension (Chronic 01/02/13) Diabetes mellitus (Chronic 07/07/12) Medical History Abnormal glandular Papanicolaou smear of cervix (04/10/02) Acute kidney injury superimposed on CKD DVT prophylaxis Female infertility GERD (gastroesophageal reflux disease) Graves' disease Hypertension Hypokalemia Hypotension determined by examination Obesity (BMI 30-39.9) Rectal cancer Sepsis Shock circulatory SVT (supraventricular tachycardia) Per pt. r/t to graves disease. Pt. states she has not had any issues with this for a long time. She states she see's her PCP to f/u UTI (urinary tract infection) Varicose veins of both lower extremities Surgical History Cervical Procedure (~1989) CRYOTHERAPY Cortical cataract of left eye Cortical cataract of right eye Endometrial Biopsy (~2002) History of bilateral ligation of fallopian tubes (02/01/14) History of gynecological procedure History of tonsillectomy and adenoidectomy Hx of cystoscopy Hx of removal of cyst right lower gluteus kurt Ligation of fallopian tube Nuclear sclerotic cataract of left eye Nuclear sclerotic cataract of right eye Posterior subcapsular age-related cataract of left eye Posterior subcapsular age-related cataract, right eye Family History Mother , of cirrhosis at age 68, likely from lifelong obesity Diabetes Essential hypertension Depression Heart disease Hyperlipidemia Stroke Liver cancer Father , dad aged 55 from AMI Heart disease Myocardial infarction Sister Hyperlipidemia Asthma Grandfather Neoplasm LUNG Grandmother Stroke Son Diabetes Asthma Daughter Anxiety Heart disease BORN WITH ENLARGED HEART Depression Bipolar Social History Smoking/Tobacco Use Status: Current every day Tobacco Type: cigarettes Tobacco: How many years used: 50 Quit status: not considering quitting Counseling given: counseling >3 minutes Smoking risk assessment performed?: Yes Alcohol Intake: never Drug use: Never Substance use type: does not use Counseling given: No Counseling provided: none Caregiver/Support person: No Household members: spouse and none Housing: apartment Do you need help understanding health information?: Rarely 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: [employer] - 12/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 medical leave Pets and animals: No Sexually active: No Do you think of yourself as: straight/heterosexual Current gender identity: decline to answer What is your relationship status?: How often do you talk on the phone with friends or family?: three or more times per week How often do you get together with friends or relatives?: decline to answer How often do you attend hindu or faith services?: decline to answer Do you belong to any clubs or organized social groups?: decline to answer Panel score (0-1 are the most socially isolated patients): 2 What type of physical activity do you participate in: none Duration: decline to answer Frequency: decline to answer Miranda/Sikh: Spiritism Special miranda needs: No Seatbelt use: always Helmet use: No Drive intox or ride w/intox 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
--- NOTE | 2021-07-01 13:23 | CMDISCH_ITS ---
- If Service Date Differs Date of service: 07/01/21 Time of Service: 13:23 LACE Index Scoring Tool - Questions: Length of Stay (in days): 4 - 6 Acuity (Admit via E.D.?): Yes Comorbidities: Any Tumor, Liver or Renal Disease, Metastatic Solid Tumor E.D. Visits: 1 - Answers: Total Score: 13 Risk of Readmission: High Risk Care Management Discharge Reason for Hospitalization: Sciatica, UTI, KYLE Discharge Plan: Discharge home via EMS. Sherry will admit to Hospice services Saturday, unless family needs services sooner. DME was delivered by Tanvir prior to discharge. Sherry will follow up with hospice providers and discharge plan of care as prescribed. Patient/Family Education Needs: Review discharge instructions, limitations, medications and plan to follow up with hospice providers. ask me three. Services Needed at Discharge: DME Agency ([facility]), Home Health Care Services (Hospice ([facility]), CM notified Hospice prior to discharge. ), Transportation ([address]ia [place], arranged by [facility])
== END 2021-07-01 14:07 | disposition home health service (06) | DRG 699 ==
LOC: ER 20:23 → MS 20:52
PROVIDERS: Internal Medicine; Physician Assistant; Urology; Admitting Provider General Practice; Emergency Provider Physician Assistant; Visit Provider General Practice
PROC: 0T9780Z Drainage of Left Ureter with Drainage Device, Via Natural or Artificial Opening Endoscopic (ICD-10-PCS; CPT 52332; principal; 2021-06-27 11:00)
DX: T83.193A Other mechanical complication of other urinary stent, initial encounter (principal); N17.9 Acute kidney failure, unspecified; K61.0 Anal abscess; N82.3 Fistula of vagina to large intestine; N39.0 Urinary tract infection, site not specified; N13.1 Hydronephrosis with ureteral stricture, not elsewhere classified; M54.41 Lumbago with sciatica, right side; Z93.3 Colostomy status; Z87.440 Personal history of urinary (tract) infections; Z85.51 Personal history of malignant neoplasm of bladder; Z85.048 Personal history of other malignant neoplasm of rectum, rectosigmoid junction, and anus; Y84.2 Radiological procedure and radiotherapy as the cause of abnormal reaction of the patient, or of later complication, without mention of misadventure at the time of the procedure; F41.9 Anxiety disorder, unspecified; N18.30 Chronic kidney disease, stage 3 unspecified; K21.9 Gastro-esophageal reflux disease without esophagitis; R53.1 Weakness; D64.9 Anemia, unspecified; I83.90 Asymptomatic varicose veins of unspecified lower extremity; Z66 Do not resuscitate; F32.9 Major depressive disorder, single episode, unspecified; G89.3 Neoplasm related pain (acute) (chronic); E83.42 Hypomagnesemia; E78.5 Hyperlipidemia, unspecified; I12.9 Hypertensive chronic kidney disease with stage 1 through stage 4 chronic kidney disease, or unspecified chronic kidney disease; E11.22 Type 2 diabetes mellitus with diabetic chronic kidney disease; R33.9 Retention of urine, unspecified; B96.4 Proteus (mirabilis) (morganii) as the cause of diseases classified elsewhere; K62.89 Other specified diseases of anus and rectum; M48.061 Spinal stenosis, lumbar region without neurogenic claudication
CPT/HCPCS: 52332; 36415; 80048; 80053; 86850; 86900; 86901; 86920; 87077; 87635; 96361; 96365; 96367; 96375; 96376; 99212; 99225; 99285; 72131; 74176; 74420; 81003; 81015; 83735; 85014; 85018; 85025; 87086; 87186; 99222; 99231; 99232; 99239; J0131; J0696; J1941; J2001; J2270; J2405; P9016; Q9967

== ENCOUNTER → 2021-06-27 07:43 | Outpatient (BNVA) | payer MEDICARE, OTHER, SELFPAY | PROVIDERS: Visit Provider Urology | DX: R69 Illness, unspecified (principal) ==